=== PATIENT | female | born 1945 | race Caucasian/White ===

== ENCOUNTER → 2016-09-23 | Outpatient (CLI) | payer OTHER ==
[~2016-09-23] MED LIST: ACET-1311 PO; ALUM-51 PO; ARTISOL12 OP; ATV/1 PO; BISA10SU7 PR; CARB0.5D28 OPB; CLC100X PO; CLTP PO; CLX20 PO; CTP/1 PO; DEXT4CHW60 PO; DOCU100C31 PO; FLAX12003 PO; FLUO0.1S2 OP; IBUP-1050 PO; INSDGI SC; INSU100I2 SQ; INSU1INJ7 SC; LACT1TAB4 PO; LISI-461 PO; LISI-729 PO; MELO15TA4 PO; METHPOW PO; METHPOW7 PO; MOMLX PO; MULT60CA PO; NRN800 PO; NVLGI/PEN SC; NYST80OI TOP; OMEP40CA41 PO; OXYC-57 PO; POLY335019 PO; POTA-335 PO; PRLSR20 PO; QUET-205 PO; QUET1TAB30 PO; SENN-56 PO; SULF800T23 PO; TIMO0.5S2 OPL; TRAM-10 PO; TRAZ1TAB8 PO; TROS20TA3 PO
[2016-09-23 09:58] LABS: ESTIMATED AVERAGE GLUCOSE 169 mg/dl; HA1C FLAG Normal (Normal)
== END | disposition home or self-care (01) ==
LOC: C.LABWYN 08:20
PROVIDERS: ATTEND Family Medicine
DX: E11.9 Type 2 diabetes mellitus without complications (principal)

== ENCOUNTER → 2016-10-21 | Day surgery (SDC) | payer OTHER ==
[2016-10-02 07:37] VITALS: Ht 154.9 cm; Wt 87.3 kg
--- NOTE | 2016-10-02 11:04 | PAT Medication Instructions ---
Service Date Oct 02, 2016. Current Home Medication List Acetaminophen (Tylenol), 650 MG PO HS Acetaminophen (Tylenol), 650 MG PO Q6 PRN for Pain or Fever Artificial Tear Solution (Artificial Tears), 1 DROPS OP QID PRN for EYE DRYNESS Bisacodyl (Bisac-Evac), 1 SUPP [place] DAILY PRN for Constipation Carboxymethylcellulose Sodium (Refresh Tears), 1 DROP OPB QID Citalopram (Celexa *), 40 MG PO DAILY Clonidine Hcl (Catapres), 0.1 MG PO BID Dextrose (Diabetic Use) (Glucose), 1 TAB PO DAILY PRN for HYPOGLYCEMIA PROTOCOL Docusate Sodium (Docusate Sodium), 2 CAP PO BID Fluorometholone (Ophth) (Fml Liquifilm), 1 DROPS OP QAM Gabapentin (Gabapentin), 800 MG PO TID Insulin Glargine (Lantus), 44 UNITS SC QAM Insulin Lispro (Human) (Humalog Kwikpen), 1 DOSE SQ UD Lisinopril (Zestril), 10 MG PO QAM Lorazepam (Ativan), 1 MG PO HS Magnesium Hydroxide (Milk of Magnesia), 1 DOSE PO DAILY PRN for Constipation Meloxicam (Meloxicam), 15 MG PO QPM Methylcellulose (Laxative) (Soluble Fiber), 15 ML PO QAM Multiple Vitamins W/ Minerals (Preservision Areds 2), 1 CAP PO BID Nystatin (Topical) (Nystatin), 1 APPLN TOP TID PRN for REDNESS OR IRRITATION Omeprazole (Prilosec), 20 MG PO QAM Oxycodone/Acetaminophen 5MG/325MG (Percocet 5MG/325MG), 1-2 TABLETS PO Q4H PRN for Pain Quetiapine Fumarate (Seroquel), 200 MG PO HS Sennosides (Senna-Lax), 1 TAB PO BID Timolol Gfs 0.5% Oph (Timoptic-Xe 0.5% Oph), 1 DROP OPL DAILY Trazodone Hcl (Desyrel), 100 MG PO HS Trospium Chloride (Trospium Chloride), 1 TAB PO BID Medication Instructions For Your Scheduled Surgery - Check with surgeon for instructions (otherwise okay to take as directed from anesthesia perspective) Meloxicam (Meloxicam), 15 MG PO QPM - Take as directed if needed: Dextrose (Diabetic Use) (Glucose), 1 TAB PO DAILY PRN for HYPOGLYCEMIA PROTOCOL - Hold the following medications 24 hours prior to surgery: Nystatin (Topical) (Nystatin), 1 APPLN TOP TID PRN for REDNESS OR IRRITATION - Hold the following medications the morning of surgery: Bisacodyl (Bisac-Evac), 1 SUPP IL DAILY PRN for Constipation Sennosides (Senna-Lax), 1 TAB PO BID Methylcellulose (Laxative) (Soluble Fiber), 15 ML PO QAM Multiple Vitamins W/ Minerals (Preservision Areds 2), 1 CAP PO BID Magnesium Hydroxide (Milk of Magnesia), 1 DOSE PO DAILY PRN for Constipation Lisinopril (Zestril), 10 MG PO QAM Insulin Lispro (Human) (Humalog Kwikpen), 1 DOSE SQ UD Trospium Chloride (Trospium Chloride), 1 TAB PO BID Docusate Sodium (Docusate Sodium), 2 CAP PO BID - Take the following medications the morning of surgery with a sip of water: Acetaminophen (Tylenol), 650 MG PO Q6 PRN for Pain or Fever (if needed) Artificial Tear Solution (Artificial Tears), 1 DROPS OP QID PRN for EYE DRYNESS (if needed) Carboxymethylcellulose Sodium (Refresh Tears), 1 DROP OPB QID Timolol Gfs 0.5% Oph (Timoptic-Xe 0.5% Oph), 1 DROP OPL DAILY Omeprazole (Prilosec), 20 MG PO QAM Oxycodone/Acetaminophen 5MG/325MG (Percocet 5MG/325MG), 1-2 TABLETS PO Q4H PRN for Pain (okay to take up to 4 hours prior to surgery if needed) Gabapentin (Gabapentin), 800 MG PO TID Fluorometholone (Ophth) (Fml Liquifilm), 1 DROPS OP QAM Citalopram (Celexa *), 40 MG PO DAILY Clonidine Hcl (Catapres), 0.1 MG PO BID - Take the following medications as scheduled the night before surgery: Acetaminophen (Tylenol), 650 MG PO HS Acetaminophen (Tylenol), 650 MG PO Q6 PRN for Pain or Fever (if needed) Artificial Tear Solution (Artificial Tears), 1 DROPS OP QID PRN for EYE DRYNESS (if needed) Bisacodyl (Bisac-Evac), 1 SUPP IL DAILY PRN for Constipation (if needed) Carboxymethylcellulose Sodium (Refresh Tears), 1 DROP OPB QID Trazodone Hcl (Desyrel), 100 MG PO HS Sennosides (Senna-Lax), 1 TAB PO BID Quetiapine Fumarate (Seroquel), 200 MG PO HS Oxycodone/Acetaminophen 5MG/325MG (Percocet 5MG/325MG), 1-2 TABLETS PO Q4H PRN for Pain (if needed) Multiple Vitamins W/ Minerals (Preservision Areds 2), 1 CAP PO BID Lorazepam (Ativan), 1 MG PO HS Insulin Lispro (Human) (Humalog Kwikpen), 1 DOSE SQ UD Gabapentin (Gabapentin), 800 MG PO TID Docusate Sodium (Docusate Sodium), 2 CAP PO BID Clonidine Hcl (Catapres), 0.1 MG PO BID Trospium Chloride (Trospium Chloride), 1 TAB PO BID - For Insulin Dependent Diabetic patients: Test blood sugar A.M. of surgery. - If blood sugar greater than 150, take half of your regular dose of: Insulin Glargine (Lantus)-- therefore take 22 units - If blood sugar less than 150, do not take any: Insulin Glargine (Lantus ) If you have any questions please call us at [phone] or [phone] or [phone]
--- NOTE | 2016-10-06 12:00 | PAT Medication Instructions ---
Service Date Oct 06, 2016. Current Home Medication List Acetaminophen (Tylenol), 650 MG PO HS Acetaminophen (Tylenol), 650 MG PO Q6 PRN for Pain or Fever Artificial Tear Solution (Artificial Tears), 1 DROPS OP QID PRN for EYE DRYNESS Bisacodyl (Bisac-Evac), 1 SUPP AR DAILY PRN for Constipation Carboxymethylcellulose Sodium (Refresh Tears), 1 DROP OPB QID Citalopram (Celexa *), 40 MG PO DAILY Clonidine Hcl (Catapres), 0.1 MG PO BID Dextrose (Diabetic Use) (Glucose), 1 TAB PO DAILY PRN for HYPOGLYCEMIA PROTOCOL Docusate Sodium (Docusate Sodium), 2 CAP PO BID Fluorometholone (Ophth) (Fml Liquifilm), 1 DROPS OP QAM Gabapentin (Gabapentin), 800 MG PO TID Insulin Glargine (Lantus), 44 UNITS SC QAM Insulin Lispro (Human) (Humalog Kwikpen), 1 DOSE SQ UD Lisinopril (Zestril), 10 MG PO QAM Lorazepam (Ativan), 1 MG PO HS Magnesium Hydroxide (Milk of Magnesia), 1 DOSE PO DAILY PRN for Constipation Meloxicam (Meloxicam), 15 MG PO QPM Methylcellulose (Laxative) (Soluble Fiber), 15 ML PO QAM Multiple Vitamins W/ Minerals (Preservision Areds 2), 1 CAP PO BID Nystatin (Topical) (Nystatin), 1 APPLN TOP TID PRN for REDNESS OR IRRITATION Omeprazole (Prilosec), 20 MG PO QAM Oxycodone/Acetaminophen 5MG/325MG (Percocet 5MG/325MG), 1-2 TABLETS PO Q4H PRN for Pain Quetiapine Fumarate (Seroquel), 200 MG PO HS Sennosides (Senna-Lax), 1 TAB PO BID Timolol Gfs 0.5% Oph (Timoptic-Xe 0.5% Oph), 1 DROP OPL DAILY Trazodone Hcl (Desyrel), 100 MG PO HS Trospium Chloride (Trospium Chloride), 1 TAB PO BID Medication Instructions For Your Scheduled Surgery Dextrose (Diabetic Use) (Glucose), 1 TAB PO DAILY PRN for HYPOGLYCEMIA PROTOCOL (continue as directed if needed) - Check with surgeon for instructions: Meloxicam (Meloxicam), 15 MG PO QPM - Hold the following medications 24 hours prior to surgery: Nystatin (Topical) (Nystatin), 1 APPLN TOP TID PRN for REDNESS OR IRRITATION - Hold the following medications the morning of surgery: Sennosides (Senna-Lax), 1 TAB PO BID Multiple Vitamins W/ Minerals (Preservision Areds 2), 1 CAP PO BID Methylcellulose (Laxative) (Soluble Fiber), 15 ML PO QAM Magnesium Hydroxide (Milk of Magnesia), 1 DOSE PO DAILY PRN for Constipation Lisinopril (Zestril), 10 MG PO QAM Insulin Lispro (Human) (Humalog Kwikpen), 1 DOSE SQ UD.Sliding scale Docusate Sodium (Docusate Sodium), 2 CAP PO BID Bisacodyl (Bisac-Evac), 1 SUPP AR DAILY PRN for Constipation Trospium Chloride (Trospium Chloride), 1 TAB PO BID - Take the following medications the morning of surgery with a sip of water: Timolol Gfs 0.5% Oph (Timoptic-Xe 0.5% Oph), 1 DROP OPL DAILY Omeprazole (Prilosec), 20 MG PO QAM Oxycodone/Acetaminophen 5MG/325MG (Percocet 5MG/325MG), 1-2 TABLETS PO Q4H PRN for Pain (okay to take up to 4 hours prior to surgery if needed) Gabapentin (Gabapentin), 800 MG PO TID Clonidine Hcl (Catapres), 0.1 MG PO BID Fluorometholone (Ophth) (Fml Liquifilm), 1 DROPS OP QAM Citalopram (Celexa *), 40 MG PO DAILY Carboxymethylcellulose Sodium (Refresh Tears), 1 DROP OPB QID Artificial Tear Solution (Artificial Tears), 1 DROPS OP QID PRN for EYE DRYNESS Acetaminophen (Tylenol), 650 MG PO HS Acetaminophen (Tylenol), 650 MG PO Q6 PRN for Pain or Fever - Take the following medications as scheduled the night before surgery: Trazodone Hcl (Desyrel), 100 MG PO HS Sennosides (Senna-Lax), 1 TAB PO BID Quetiapine Fumarate (Seroquel), 200 MG PO HS Omeprazole (Prilosec), 20 MG PO QAM Oxycodone/Acetaminophen 5MG/325MG (Percocet 5MG/325MG), 1-2 TABLETS PO Q4H PRN for Pain (if needed) Magnesium Hydroxide (Milk of Magnesia), 1 DOSE PO DAILY PRN for Constipation ( if needed) Lorazepam (Ativan), 1 MG PO HS Insulin Lispro (Human) (Humalog Kwikpen), 1 DOSE SQ UD Sliding scale Gabapentin (Gabapentin), 800 MG PO TID Docusate Sodium (Docusate Sodium), 2 CAP PO BID Clonidine Hcl (Catapres), 0.1 MG PO BID Carboxymethylcellulose Sodium (Refresh Tears), 1 DROP OPB QID Bisacodyl (Bisac-Evac), 1 SUPP AR DAILY PRN for Constipation Artificial Tear Solution (Artificial Tears), 1 DROPS OP QID PRN for EYE DRYNESS Acetaminophen (Tylenol), 650 MG PO HS Acetaminophen (Tylenol), 650 MG PO Q6 PRN for Pain or Fever Trospium Chloride (Trospium Chloride), 1 TAB PO BID - For Insulin Dependent Diabetic patients: Test blood sugar A.M. of surgery. - If blood sugar greater than 150, take half of your regular dose of: Insulin Glargine (Lantus), take 22 units - If blood sugar less than 150, do not take any: Insulin Glargine (Lantus ) If you have any questions please call us at [phone] or [phone] or [phone]
[2016-10-06 12:35] LABS: HEMATOCRIT 33.3 % (37-47); MEAN CELL VOLUME 84.3 fL (80-100); MEAN CORPUSCULAR HEMOGLOBIN 29.1 pg (25-34); MEAN CORPUSCULAR HGB CONC 34.5 g/dl (32-36); MEAN PLATELET VOLUME 9.1 fL (7.4-10.4); PLATELET COUNT 197 K/uL (130-400); RED BLOOD COUNT 3.95 M/uL (4.2-5.4); WHITE BLOOD COUNT 4.48 K/uL (4.8-10.8)
[2016-10-06 13:43] LABS: BUN/CREATININE RATIO 27.5 (10-20); CALCIUM 8.9 mg/dl (8.5-10.1); CREATININE 0.77 mg/dl (0.60-1.20)
[~2016-10-21] VITALS: Ht 154.9 cm; Wt 87.3 kg
[~2016-10-21] MED LIST changes: -ALUM-51 PO; +ATROPINE SULFATE 0.1 MG/ML 5ML SYR IV PRN; +BUPIVACAINE 0.5 % 5 MG/1 ML PF 10ML VIAL ONE; +CEFAZOLIN 2000 MG/60 ML D5W IV SCH; -CLTP PO; -DOCU100C31 PO; +EpHEDrine SULFATE INJ 50 MG/ML AMP IV PRN; +FENTANYL CITRATE INJ 50 MCG/1 ML 2 ML VIAL IV PRN; +FENTANYL CITRATE INJ 50 MCG/1 ML 2 ML VIAL ONE; -FLAX12003 PO; +FLUMAZENIL 0.1 MG/1 ML 10 ML VIAL IV PRN; +HYDROmorphone INJ 2 MG/ML SYR/VIAL IV PRN; -IBUP-1050 PO; -INSDGI SC; +LABETALOL HCL IV 5 MG/ML 20ML IV PRN; -LACT1TAB4 PO; +LACTATED RINGER'S 1000ML 1,000 ML IV SCH; +LIDOCAINE HCL 1% 20 ML VIAL ONE; +LIDOCAINE HCL 2% 2 ML VIAL (20MG/ML) ONE; -LISI-729 PO; -METHPOW7 PO; +MIDAZOLAM HCL 1 MG/ML 2ML VIAL ONE; +NALOXONE HCL 0.4 MG/1 ML VIAL/CARP IV PRN; -NVLGI/PEN SC; -OMEP40CA41 PO; +ONDANSETRON INJ 2 MG/ML 2 ML VIAL IV PRN; +ONDANSETRON INJ 2 MG/ML 2 ML VIAL ONE; +OXYCODONE/ACETAMINOPHEN 5-325 TAB PO PRN; +PHENYLEPHRINE 100MCG/ML 5ML SYR IV PRN; -POLY335019 PO; -POTA-335 PO; +PROPOFOL IV EMULSION 10 MG/ML 20 ML VIAL IV ONE; -QUET1TAB30 PO; +SODIUM CHLORIDE 0.9% 1000ML 1,000 ML IV SCH
--- NOTE | 2016-10-21 07:52 | History & Physical Bridge - SC ---
H&P Re-Evaluation Bridge Note: I have examined the patient, reviewed the History & Physical and in the interval since the performance of the History & Physical I have noted the following changes of clinical significance: No changes noted
--- NOTE | 2016-10-21 08:50 | [facility] Post Operative Brief Note ---
Immediate Operative Summary Operative Date Oct 21, 2016. Pre-Operative Diagnosis Left Ulnar Nerve Compression, Left Ring and Left Little Trigger Fingers Post-Operative Diagnosis same Procedure(s) Performed Left Elbow Ulnar Nerve Decompression, Left Ring And Little Trigger Finger Releases Surgeon Dr. Vaughn Eckert [place] Surgeon(s) Michael Hernandez PA-C Estimated Blood Loss 0 Findings ABOVE Specimens none Drains NONE Anesthesia LMA Complication(s) None Disposition Recovery Room / PACU
--- NOTE | 2016-10-21 08:55 | Discharge Instructions-SurgCtr ---
Discharge Instructions Date of Service Oct 21, 2016. Visit Reason for Visit: Left Ulnar Nerve Compression, Left Trigger Finger Discharge Discharge Diagnosis / Problem: SAME ABOVE Discharge Goals Goal(s): Decrease discomfort, Improve function Activity Recommendations Activity Limitations: as noted below Lifting Limitations: until after follow-up appointment Exercise/Sports Limitations: until after follow-up appointment Shower/Bathe: keep incision dry Anesthesia . Post Anesthesia Instructions: If you have had General Anesthesia or IV Sedation: * Do not drive today. * Resume driving when surgeon permits. * Do not make important decisions or sign legal documents today. * Call surgeon for: 1. Temperature elevations greater than 101 degrees F. 2. Uncontrollable pain. 3. Excessive bleeding. 4. Persistent nausea and vomiting. 5. Medication intolerance (nausea, vomiting or rash). * For nausea and vomiting use only clear liquids such as: tea, soda, bouillon until nausea subsides, then gradually increase diet as tolerated. * If you have any concerns or questions, call your surgeon's office. If physician is unavailable and it is an emergency, call 911 or go to the nearest emergency room. . Instructions / Follow-Up Instructions / Follow-Up MEDICATIONS: * Resume previous medications unless instructed otherwise by your surgeon. * Always take pain medication on a full stomach or with food to avoid upset stomach. * Do not drink alcohol or drive while taking narcotics. * Ibuprofen or Tylenol may be taken if narcotic not needed. SPECIAL CARE INSTRUCTIONS: __ None _X_ Keep extremity elevated and iced x 48 hours; apply ice 20-30 minutes 8-10 times/day. May remove at night. _X_ Sling __24 hrs/day _X_ Remove at night __ Shoulder Immobilizer __ 24 hrs/day __ Remove at night _X_ Dressing _X_ Maintain until seen in office, may shower with plastic over site __ Remove dressings in 24-48 hours and then may shower __ Cover incisions with band-aids after showering __ Do not remove steri-strips Call physician if chills or temperature rises above 102 degrees or pain unrelieved by prescribed pain medications at . . Diet Recommendations Home Diet: resume previous diet Procedures Procedures Performed: Left Elbow Ulnar Nerve Decompression, Left Ring And Little Trigger Finger Releases Pending Studies Studies pending at discharge: no Medical Emergencies . Who to Call and When: Medical Emergencies: If at any time you feel your situation is an emergency, please call 911 immediately. . Non-Emergent Contact Non-Emergency issues call your: Primary Care Provider . . "Provider Documentation" section prepared by Michael Hernandez. .
[2016-10-21] MEDS: MEPERIDINE HCL 25 MG/ML CARP IV PRN ×2 (09:09→09:15)
--- NOTE | 2016-10-21 09:12 | OPERATIVE REPORT ---
DATE OF OPERATION: 10/21/2016 PREOPERATIVE DIAGNOSIS: 1. Ulnar nerve entrapment, left elbow. 2. Left ring and little trigger fingers. POSTOPERATIVE DIAGNOSIS: Same. PROCEDURES: 1. Decompression ulnar nerve, left elbow. 2. Release A1 pulleys left ring and trigger fingers. SURGEON: Dr. Eckert. EMPLOYEE PLACEMENT SPECIALIST: Michael Hernandez PA-C. ANESTHESIOLOGIST: Dr. Petit. ANESTHESIA: LMA. DRAINS: None. COMPLICATIONS: None. CONDITION: The patient tolerated the procedure well and returned to the recovery room in apparent satisfactory condition. INDICATIONS FOR SURGERY: Stefany is a 71-year-old female who has had increasing pain and numbness consistent with ulnar nerve entrapment, left elbow. I went over treatment options and elected to go ahead with the procedure. She also has had triggering of the left ring and trigger fingers, would like to go ahead with release A1 kari also. The procedure, expected outcomes, side effects were all explained in detail. I explained the recovery time with ulnar nerve problems when they are entrapped at the elbow like it regenerates 0.1 mm a day, it could be a long time, months before she can get normal feeling back in her fingers. No guarantees of surgery. OPERATION AND FINDINGS: PROCEDURE: The patient was taken to the OR at which time she was placed supine on the operating table, put to sleep by the anesthesia department. Left arm was prepped and draped in usual sterile fashion for surgery. We went ahead and started with the ulnar nerve. We decompressed her arm and put an axillary tourniquet up to 250 mmHg. We made a curvilinear incision between the medial epicondyle and the olecranon process. Using loupe magnification, we dissected down and exposed the nerve in the cubital tunnel. You could see where it was entrapped right at the bend of the elbow. There was almost an extra piece of muscle over top that I had dissected off and decompressed the nerve. We went proximal and distal, feed it up. We took the arm through a range of motion and there was no subluxation of the nerve. You could see where it had an hourglass appearance where the compression was right at the bend of the elbow. The wound then was copiously irrigated. It was closed in a layered fashion including skin bianca. Marcaine without epinephrine was placed in skin edges. Placed a sterile dressing of Xeroform, 4 x 4's, soft roll. Attention then was given to the hand and it was exposed. We then made incisions over the A1 pulleys of the left ring and little fingers, dissected down and under direct observation the A1 pulleys were divided with an 11 blade and tenotomy scissors. The fingers were taken through range of motion, no longer could see any triggering of the fingers. Both those wounds were irrigated and closed with interrupted 4-0 nylon sutures. Both wounds then were incorporated into our dressing and put her in a bulky dressing with a posterior splint and Kalia bandage and returned back to recovery room in apparent satisfactory condition. I attest to the content of the Intraoperative Record and any orders documented therein. Any exception s are noted below.
[2016-10-21 10:00] VITALS: TEMP 36.3
--- NOTE | 2016-10-21 10:08 | Anesthesia Progress Nt - [facility] ---
Anesthesia Post Op Note Date & Time Oct 21, 2016 at 10:08 Vital Signs Pain Intensity: 3 Vital Signs Past 12 Hours Date Time Temp Pulse Resp B/P (MAP) Pulse Ox O2 Delivery O2 Flow Rate FiO2 10/21/16 09:52 65 5 93 10/21/16 09:52 66 5 10/21/16 09:51 143/69 10/21/16 09:50 36.4 70 12 157/63 96 Room Air 10/21/16 09:47 70 6 98 10/21/16 09:47 70 6 10/21/16 09:45 150/71 10/21/16 09:42 71 6 94 10/21/16 09:42 72 6 10/21/16 09:40 136/69 10/21/16 09:37 67 6 10/21/16 09:37 67 6 99 10/21/16 09:36 148/66 10/21/16 09:32 70 16 10/21/16 09:32 70 16 99 10/21/16 09:31 159/72 10/21/16 09:28 155/78 10/21/16 09:27 74 15 99 10/21/16 09:27 75 15 10/21/16 09:26 164/76 10/21/16 09:22 70 10 99 10/21/16 09:22 69 10 10/21/16 09:20 155/73 10/21/16 09:17 66 10 99 10/21/16 09:17 66 10 10/21/16 09:16 142/87 10/21/16 09:12 68 21 99 10/21/16 09:12 68 21 10/21/16 09:11 146/60 10/21/16 09:07 68 14 99 10/21/16 09:07 68 14 10/21/16 09:06 145/64 10/21/16 09:02 70 18 10/21/16 09:02 71 18 99 10/21/16 09:01 146/74 10/21/16 08:57 69 11 98 10/21/16 08:57 69 11 10/21/16 08:55 148/67 10/21/16 08:52 36.4 71 12 152/74 98 Diffusion Mask 6 10/21/16 08:52 152/74 10/21/16 07:00 36.7 74 16 152/83 (106) 95 Room Air Notes Mental Status: alert / awake / arousable, participated in evaluation Pt Amnestic to Procedure: Yes Nausea / Vomiting: adequately controlled Pain: adequately controlled Airway Patency, RR, SpO2: stable & adequate BP & HR: stable & adequate Hydration State: stable & adequate Anesthetic Complications: no major complications apparent
[2016-10-21 10:45] VITALS: BP 161/77; PULSE 71; O2SAT 96
== END | disposition home or self-care (01) ==
LOC: X.SURG 06:50
PROVIDERS: ATTEND Orthopaedic Surgery
DX: G56.22 Lesion of ulnar nerve, left upper limb (principal); M65.352 Trigger finger, left little finger; M65.342 Trigger finger, left ring finger; E78.5 Hyperlipidemia, unspecified; F32.9 Major depressive disorder, single episode, unspecified; I10 Essential (primary) hypertension

== ENCOUNTER → 2016-11-20 | Outpatient (CLI) | payer OTHER ==
[~2016-11-20] MED LIST changes: -ATROPINE SULFATE 0.1 MG/ML 5ML SYR IV PRN; -BUPIVACAINE 0.5 % 5 MG/1 ML PF 10ML VIAL ONE; -CEFAZOLIN 2000 MG/60 ML D5W IV SCH; -EpHEDrine SULFATE INJ 50 MG/ML AMP IV PRN; -FENTANYL CITRATE INJ 50 MCG/1 ML 2 ML VIAL IV PRN; -FENTANYL CITRATE INJ 50 MCG/1 ML 2 ML VIAL ONE; -FLUMAZENIL 0.1 MG/1 ML 10 ML VIAL IV PRN; -HYDROmorphone INJ 2 MG/ML SYR/VIAL IV PRN; -LABETALOL HCL IV 5 MG/ML 20ML IV PRN; -LACTATED RINGER'S 1000ML 1,000 ML IV SCH; -LIDOCAINE HCL 1% 20 ML VIAL ONE; -LIDOCAINE HCL 2% 2 ML VIAL (20MG/ML) ONE; -MIDAZOLAM HCL 1 MG/ML 2ML VIAL ONE; -NALOXONE HCL 0.4 MG/1 ML VIAL/CARP IV PRN; -ONDANSETRON INJ 2 MG/ML 2 ML VIAL IV PRN; -ONDANSETRON INJ 2 MG/ML 2 ML VIAL ONE; -OXYCODONE/ACETAMINOPHEN 5-325 TAB PO PRN; -PHENYLEPHRINE 100MCG/ML 5ML SYR IV PRN; -PROPOFOL IV EMULSION 10 MG/ML 20 ML VIAL IV ONE; -SODIUM CHLORIDE 0.9% 1000ML 1,000 ML IV SCH
[2016-11-20 08:34] LABS: URINE APPEARANCE TURBID (CLEAR); URINE BILIRUBIN NEG (NEG); URINE COLOR DK YELLOW; URINE EPITHELIAL CELL AUTO >30 /lpf (0-5); URINE NITRITE NEG (NEG); URINE SPECIFIC GRAVITY 1.025 (1.000-1.030); UROBILINOGEN NEG (NEG)
[2016-11-20 08:42] LABS: MANUAL MICROSCOPIC REQUIRED? NO; REVIEW REQ? YES
[2016-11-20 08:52] LABS: URINE MUCUS PRESENT (NONE PRSENT)
== END | disposition home or self-care (01) ==
LOC: C.LABWYN 08:04
PROVIDERS: ATTEND Family Medicine
DX: R50.9 Fever, unspecified (principal)

== ENCOUNTER → 2017-03-12 | Outpatient (CLI) | payer OTHER ==
[~2017-03-12] MED LIST changes: -SULF800T23 PO; -TRAZ1TAB8 PO; +TRAZ1TAB9 PO
[2017-03-12 08:57] LABS: ALT/SGPT 32 U/L (12-78); BLOOD UREA NITROGEN 13 mg/dl (7-18); BUN/CREATININE RATIO 21.3 (10-20); CALCIUM 8.5 mg/dl (8.5-10.1); CARBON DIOXIDE 27 mmol/L (21-32); CHLORIDE 108 mmol/L (98-107); CHOLESTEROL 194 mg/dl (0-200); CREATININE 0.63 mg/dl (0.60-1.20); GLUCOSE 112 mg/dl (70-99); POTASSIUM 3.8 mmol/L (3.5-5.1); SODIUM 141 mmol/L (136-145); TRIGLYCERIDES 343 mg/dl (0-150); VERY LOW DENSITY LIPOPROT CALC 69 mg/dl
[2017-03-12 08:59] LABS: ALB/GLOB RATIO 0.9 (0.9-2); ALKALINE PHOSPHATASE 136 U/L (45-117); AST/SGOT 23 U/L (15-37); CHOLESTEROL/HDL RATIO 5.9; HDL CHOLESTEROL 33 mg/dl; LDL CHOLESTEROL CALCULATED 92 mg/dl
[2017-03-12 09:20] LABS: MANUAL MICROSCOPIC REQUIRED? NO; REVIEW REQ? NO; URINE APPEARANCE CLEAR (CLEAR); URINE BILIRUBIN NEG (NEG); URINE COLOR YELLOW; URINE NITRITE NEG (NEG); URINE SPECIFIC GRAVITY 1.012 (1.000-1.030); UROBILINOGEN NEG (NEG)
[2017-03-12 09:51] LABS: ESTIMATED AVERAGE GLUCOSE 183 mg/dl; HA1C FLAG Normal (Normal)
[2017-03-12 09:52] LABS: CREATININE RANDOM URINE 44.1 mg/dl
[2017-03-12 10:03] LABS: RATIO 510.2 mcg/mg (0-30.0)
== END | disposition home or self-care (01) ==
LOC: C.LABWYN 08:31
PROVIDERS: ATTEND Family Medicine
DX: E11.9 Type 2 diabetes mellitus without complications (principal); Z11.59 Encounter for screening for other viral diseases

== ENCOUNTER → 2017-03-31 | Outpatient (CLI) | payer OTHER ==
[~2017-03-31] MED LIST changes: +TRAZ-122 PO; -TRAZ1TAB9 PO
== END | disposition home or self-care (01) ==
LOC: C.LABWYN 08:07
PROVIDERS: ATTEND Internal Medicine
DX: E11.9 Type 2 diabetes mellitus without complications (principal); F32.9 Major depressive disorder, single episode, unspecified

== ENCOUNTER → 2017-07-07 | Outpatient (CLI) | payer OTHER ==
[~2017-07-07] MED LIST changes: +MELO-83 PO; -MELO15TA4 PO
[2017-07-07 09:04] LABS: HEMATOCRIT 33.5 % (37-47); HEMOGLOBIN 11.7 g/dL (12.0-16.0); MEAN CELL VOLUME 84.6 fL (80-100); MEAN CORPUSCULAR HEMOGLOBIN 29.5 pg (25-34); MEAN CORPUSCULAR HGB CONC 34.9 g/dl (32-36); MEAN PLATELET VOLUME 9.6 fL (7.4-10.4); PLATELET COUNT 200 K/uL (130-400); RED CELL DISTRIBUTION WIDTH CV 13.1 % (11.5-14.5); WHITE BLOOD COUNT 5.45 K/uL (4.8-10.8)
[2017-07-07 09:34] LABS: BLOOD UREA NITROGEN 13 mg/dl (7-18); CALCIUM 8.6 mg/dl (8.5-10.1); CARBON DIOXIDE 28 mmol/L (21-32); CREATININE 0.67 mg/dl (0.60-1.20); GLUCOSE 133 mg/dl (70-99); POTASSIUM 3.7 mmol/L (3.5-5.1); SODIUM 135 mmol/L (136-145)
== END | disposition home or self-care (01) ==
LOC: C.LABWYN 08:46
PROVIDERS: ATTEND Internal Medicine
DX: I10 Essential (primary) hypertension (principal); E11.9 Type 2 diabetes mellitus without complications

== ENCOUNTER 2020-10-19 10:39 | Inpatient (IN) ==
--- NOTE | 2020-10-12 09:24 | PAT Medication Instructions ---
Medication Instructions Date of Service October 12, 2020 Home Medications Medication Instructions Recorded hydrocortisone 2.5 % topical cream See Rx Instructions .ROUTE 06/12/18 .COMPLEX #28 gm conjugated estrogens 0.625 mg/gram 0.625 mg PV DAILY #30 gm 03/17/19 vaginal cream (Premarin) methenamine hippurate 1 gram tablet 1 gm PO Q12H #60 tab 03/17/19 aspirin 81 mg tablet,delayed release 81 mg PO QAM clonidine HCl 0.1 mg tablet 0.1 mg PO BID fluorometholone 0.1 % eye drops,suspension 1 drp OPB QAM glucose 4 gram chewable tablet 1 tab PO UD ibuprofen 800 mg tablet 800 mg PO TID PRN insulin glargine 100 unit/mL (3 mL) subcutaneous pen (Lantus Solostar U-100 Insulin) 50 unit SUBCUT QAM lorazepam 1 mg tablet 1 mg PO HS meloxicam 15 mg tablet 15 mg PO HS nystatin 100,000 unit/gram topical powder (Nystop) 1 applic TOPICAL TID PRN omeprazole 20 mg capsule,delayed release 20 mg PO QAM polyethylene glycol 3350 17 gram oral powder packet 17 g PO QAM quetiapine 50 mg tablet 50 mg PO HS timolol 0.5 % eye drops 1 drp OPB QAM tolterodine 2 mg tablet 2 mg PO BID vit C 250 mg-vit E 90 mg-zinc 40 mg-copper 1 et-egbbrh-hmzeic capsule (PreserVision AREDS-2) 1 tab PO BID acetaminophen 325 mg tablet (Tylenol) 650 mg PO Q6H PRN MDD MAX 3 GRAMS APAP/24 HOURS. citalopram 20 mg tablet (Celexa) 20 mg PO QAM hydrocortisone 2.5 % topical cream See Rx Instructions .ROUTE .COMPLEX conjugated estrogens 0.625 mg/gram vaginal cream (Premarin) 0.625 mg PV DAILY methenamine hippurate 1 gram tablet 1 gm PO Q12H amoxicillin 500 mg capsule 2,000 mg PO UD diclofenac sodium 1 % topical gel 2 g TOPICAL QID PRN gabapentin 400 mg capsule 400 mg PO TID insulin lispro 100 unit/mL subcutaneous pen (Humalog KwikPen (U-100) Insulin) 0 - 12 unit SUBCUT UD lisinopril 2.5 mg tablet 2.5 mg PO BID psyllium husk 3.4 gram/5.4 gram oral powder (Metamucil) 1 tbsp PO DAILY Continue as directed amoxicillin 500 mg capsule 2,000 mg PO UD (prior to dental procedures) ASK your surgeon for instructions ibuprofen 800 mg tablet 800 mg PO TID PRN meloxicam 15 mg tablet 15 mg PO HS If still awaiting instructions, contact Dr. Agosto's office ( ) ASK your prescriber and surgeon aspirin 81 mg tablet,delayed release 81 mg PO QAM If still awaiting instructions, contact Dr. Agosto's office ( ) STOP taking 2 weeks before surgery vit C 250 mg-vit E 90 mg-zinc 40 mg-copper 1 es-uzqpqs-uoscbh capsule (PreserVision AREDS-2) 1 tab PO BID STOP taking 24 hours before surgery nystatin 100,000 unit/gram topical powder (Nystop) 1 applic TOPICAL TID PRN hydrocortisone 2.5 % topical cream See Rx Instructions .ROUTE .COMPLEX conjugated estrogens 0.625 mg/gram vaginal cream (Premarin) 0.625 mg PV DAILY diclofenac sodium 1 % topical gel 2 g TOPICAL QID PRN DO NOT take the morning of surgery polyethylene glycol 3350 17 gram oral powder packet 17 g PO QAM tolterodine 2 mg tablet 2 mg PO BID insulin lispro 100 unit/mL subcutaneous pen (Humalog KwikPen (U-100) Insulin) 0 - 12 unit SUBCUT UD lisinopril 2.5 mg tablet 2.5 mg PO BID psyllium husk 3.4 gram/5.4 gram oral powder (Metamucil) 1 tbsp PO DAILY Take morning of surgery With a small sip of water, OTHERWISE NOTHING TO EAT OR DRINK AFTER MIDNIGHT: clonidine HCl 0.1 mg tablet 0.1 mg PO BID fluorometholone 0.1 % eye drops,suspension 1 drp OPB QAM omeprazole 20 mg capsule,delayed release 20 mg PO QAM timolol 0.5 % eye drops 1 drp OPB QAM acetaminophen 325 mg tablet (Tylenol) 650 mg PO Q6H PRN MDD MAX 3 GRAMS APAP/24 HOURS (okay to take up to 4 hours prior to surgery if needed) citalopram 20 mg tablet (Celexa) 20 mg PO QAM methenamine hippurate 1 gram tablet 1 gm PO Q12H gabapentin 400 mg capsule 400 mg PO TID Take evening before surgery clonidine HCl 0.1 mg tablet 0.1 mg PO BID glucose 4 gram chewable tablet 1 tab PO UD (if needed) lorazepam 1 mg tablet 1 mg PO HS quetiapine 50 mg tablet 50 mg PO HS tolterodine 2 mg tablet 2 mg PO BID acetaminophen 325 mg tablet (Tylenol) 650 mg PO Q6H PRN MDD MAX 3 GRAMS APAP/24 HOURS (if needed) methenamine hippurate 1 gram tablet 1 gm PO Q12H gabapentin 400 mg capsule 400 mg PO TID insulin lispro 100 unit/mL subcutaneous pen (Humalog KwikPen (U-100) Insulin) 0 - 12 unit SUBCUT UD lisinopril 2.5 mg tablet 2.5 mg PO BID Insulin Dependent Diabetic Patients * Test your blood sugar the morning of surgery * If Blood Sugar is GREATER THAN 150, take HALF of your regular dose of: insulin glargine 100 unit/mL (3 mL) subcutaneous pen (Lantus Solostar U-100 Insulin) take 25 units * If Blood Sugar is LESS THAN 150, DO NOT TAKE ANY: insulin glargine 100 unit/mL (3 mL) subcutaneous pen (Lantus Solostar U-100 Insulin) Other Notes If you have any questions please call us at [phone] or [phone] or [phone] or [phone]
--- NOTE | 2020-10-16 09:42 | Anesthesiology Consultation ---
Date of Service October 16, 2020 Assessment & Plan (1) Encounter for pre-operative examination: Chart Review Chart Review: Acceptable Risk for Surgery and Patient NOT seen in Pre Admission Testing Per nursing assessment 10/11/2020, patient resides at [facility]- does not wear mask while inside [facility] but does wear mask in public. No known Covid infection in the past 90 days. No known Covid positive contacts or Covid related symptoms. Pt is vaccinated for Covid. Covid test 10/15/20= negative. Due to patient living in dependent facility and Covid test being done 10/15/20- will order Cepheid test for DOS. History Surgery Operation Date: 10/19/20 12:35 Proposed Procedures p Bilateral L2-L3, Left L5-S1 Lumbar Laminectomy, Medial Facetectomies, Foraminotomies - Noel gAosto MD Height/Weight Height: 5 ft 1 in Weight: 89.811 kg Allergies Allergy/AdvReac Type Severity Reaction Status Date / Time latex Allergy Unknown ON [facility] Verified 10/11/20 16:10 LIST niacin Allergy Unknown ON Verified 10/11/20 16:10 [facility] LIST simvastatin Allergy Unknown ON Verified 10/11/20 16:10 [facility] LIST Medications Home Medications Medication Instructions Recorded Confirmed Last Taken aspirin 81 mg tablet,delayed 81 mg PO [facility] 11/26/17 10/12/20 06/11/18 release clonidine HCl 0.1 mg tablet 0.1 mg PO BID 11/26/17 10/12/20 06/11/18 fluorometholone 0.1 % eye 1 drp OPB [facility] 11/26/17 10/12/20 06/11/18 drops,suspension glucose 4 gram chewable tablet 1 tab PO UD 11/26/17 10/12/20 Unknown ibuprofen 800 mg tablet 800 mg PO TID PRN 11/26/17 10/12/20 Unknown insulin glargine 100 unit/mL (3 50 unit SUBCUT [facility] 11/26/17 10/12/20 06/11/18 mL) subcutaneous pen (Lantus Solostar U-100 Insulin) lorazepam 1 mg tablet 1 mg PO HS 11/26/17 10/12/20 06/11/18 meloxicam 15 mg tablet 15 mg PO 11/26/17 10/12/20 06/11/18 nystatin 100,000 unit/gram topical 1 applic TOPICAL TID PRN 11/26/17 10/12/20 Unknown powder (Nystop) omeprazole 20 mg capsule,delayed 20 mg PO QAM 11/26/17 10/12/20 06/11/18 release polyethylene glycol 3350 17 gram 17 g PO QAM 11/26/17 10/12/20 06/11/18 oral powder packet quetiapine 50 mg tablet 50 mg PO HS 11/26/17 10/12/20 06/11/18 timolol 0.5 % eye drops 1 drp OPB QAM 11/26/17 10/12/20 06/11/18 tolterodine 2 mg tablet 2 mg PO BID 11/26/17 10/12/20 06/11/18 vit C 250 mg-vit E 90 mg-zinc 40 1 tab PO BID 11/26/17 10/12/20 06/11/18 mg-copper 1 [id number] capsule (PreserVision AREDS-2) acetaminophen 325 mg tablet 650 mg PO Q6H PRN MDD MAX 3 GRAMS 06/12/18 10/12/20 Unknown (Tylenol) APAP/24 HOURS. citalopram 20 mg tablet (Celexa) 20 mg PO QAM 06/12/18 10/12/20 06/11/18 hydrocortisone 2.5 % topical cream See Rx Instructions .ROUTE 06/12/18 10/12/20 Unknown .COMPLEX #28 gm conjugated estrogens 0.625 mg/gram 0.625 mg PV DAILY #30 gm 03/17/19 10/12/20 Unknown vaginal cream (Premarin) methenamine hippurate 1 gram tablet 1 gm PO Q12H #60 tab 03/17/19 10/12/20 Unknown amoxicillin 500 mg capsule 2,000 mg PO UD 10/12/20 10/12/20 Unknown diclofenac sodium 1 % topical gel 2 g TOPICAL QID PRN 10/12/20 10/12/20 Unknown gabapentin 400 mg capsule 400 mg PO TID 10/12/20 10/12/20 Unknown insulin lispro 100 unit/mL 0 - 12 unit SUBCUT UD 10/12/20 10/12/20 Unknown subcutaneous pen (Humalog KwikPen (U-100) Insulin) lisinopril 2.5 mg tablet 2.5 mg PO BID 10/12/20 10/12/20 Unknown psyllium husk 3.4 gram/5.4 gram 1 tbsp PO DAILY 10/12/20 10/12/20 Unknown oral powder (Metamucil) Past Medical History Medical History (Updated 10/16/20 @ 09:41 by Kandice Fletcher PA-C) Chronic back pain Depression Per records Diabetes mellitus, type 2 IDDM GERD (gastroesophageal reflux disease) hx History of macular degeneration Hypertension Per records Insomnia Per records Neuropathy Per records Sleep apnea cpap nightly with 3lpm of oygen Spinal stenosis of lumbar region Past Family History Family History Other No family history of adverse response to anesthesia No pertinent family history Past Surgical History Surgical History History of appendectomy History of bilateral tubal ligation History of cataract surgery bilateral History of cholecystectomy History of colonoscopy History of cornea transplant bilateral Hx of total knee arthroplasty bilateral S/P epidural steroid injection Social History Smoking Status: Former smoker Do You Dip or Chew Tobacco: No Hx Alcohol Use: No Hx Substance Use: No substance use type: does not use Lab Results Anesthesia Preop Results Results Anesthesia Widget: WBC 6.63 K/uL (4.8-10.8) 10/15/20 Hgb 12.2 g/dL (12.0-16.0) 10/15/20 Hct 36.4 % (37-47) L 10/15/20 Plt 206 K/uL (130-400) 10/15/20 Na 140 mmol/L (136-145) 10/15/20 K 3.9 mmol/L (3.5-5.1) 10/15/20 Cl 109 mmol/L (98-107) H 10/15/20 CO2 27 mmol/L (21-32) 10/15/20 BUN 16 mg/dl (7-18) 10/15/20 Creat 0.93 mg/dl (0.6-1.2) 10/15/20 Glucose Level 92 mg/dl (70-99) 10/15/20 HA1c 6.4 % (4.5-5.6) H 08/28/20 Blood Type A Positive 10/15/20 Antibody Screen NEGATIVE 10/15/20 Testing Electrocardiogram Date: 10/15/20 Findings: + NSR @ (74bpm) and + no change from (October 06, 2016 per cardio ) Right bundle branch block
[~2020-10-19 10:39] MED LIST changes: -ACET-1311 PO; -ARTISOL12 OP; -ATV/1 PO; -BISA10SU7 PR; -CARB0.5D28 OPB; -CLC100X PO; -CLX20 PO; -CTP/1 PO; -DEXT4CHW60 PO; -FLUO0.1S2 OP; -INSU100I2 SQ; -INSU1INJ7 SC; -LISI-461 PO; +LR 15ML/HR IV SCH; +LR 60ML/HR IV SCH; -MELO-83 PO; -METHPOW PO; -MOMLX PO; -MULT60CA PO; -NRN800 PO; -NYST80OI TOP; -OXYC-57 PO; -PRLSR20 PO; -QUET-205 PO; -SENN-56 PO; -TIMO0.5S2 OPL; -TRAM-10 PO; +TRANEXAMIC ACID 1,000 MG **IV Intra-op IV SCH; +TRANEXAMIC ACID 1,000 MG **IV Pre-op IV SCH; -TRAZ-122 PO; -TROS20TA3 PO; +ceFAZolin 2000MG 2,000 MG/15 ML SYR IV SCH
[2020-10-19] MEDS ORDERED: DEXAMETHASONE SOD INJ 4 MG/ML VIAL ONE (11:58)
[2020-10-19] MEDS ORDERED: MIDAZOLAM HCL 1 MG/ML 2ML VIAL ONE (11:58)
[2020-10-19] MEDS ORDERED: ONDANSETRON INJ 2 MG/ML 2 ML VIAL ONE (11:58)
[2020-10-19] MEDS ORDERED: LIDOCAINE 2% 2 ML VIAL/AMP(20MG/ML) INFIL ONE (11:58)
[2020-10-19] MEDS ORDERED: PROPOFOL IV EMULSION 10 MG/ML 20 ML VIAL IV ONE (11:58)
[2020-10-19] MEDS ORDERED: ROCURONIUM BROMIDE 10 MG/ML 5 ML VIAL IV ONE ×3 (11:58→16:07)
[2020-10-19] MEDS ORDERED: HYDROmorphone INJ 2 MG/ML SYR/VIAL ONE (11:59)
[2020-10-19] MEDS ORDERED: ePHEDrine sulfate 50 MG/ML AMP IV PRN (12:54)
[2020-10-19] MEDS ORDERED: ATROPINE SULFATE 0.1 MG/ML 10ML SYR IV PRN (12:54)
[2020-10-19] MEDS ORDERED: ONDANSETRON INJ 2 MG/ML 2 ML VIAL IV PRN ×2 (12:54→19:53)
[2020-10-19] MEDS ORDERED: HYDROmorphone INJ 2 MG/ML SYR/VIAL IV PRN (12:54)
--- NOTE | 2020-10-19 13:28 | History & Physical Bridge Note ---
Date of Service October 19, 2020 History & Physical Bridge Note I have examined the patient, reviewed the History & Physical and in the interval since the performance of the History & Physical I have noted the following changes of clinical significance: no changes noted New changes compared to last appointment: nil Musculoskeletal: 5/5 motor strength bilateral L2-S1 except left L5 4/5. Neurologic: Sensation 2/2 to light touch bilateral L2-S1. Patient marked for surgery. All new questions about procedure answered. Informed consent confirmed
[2020-10-19] MEDS ORDERED: VANCOMYCIN HCL 1000MG/20ML VIAL ONE ×2 (13:32→15:57)
[2020-10-19] MEDS ORDERED: THROMBIN FOR SOLN 20000 UNIT KIT ONE (13:32)
[2020-10-19] MEDS ORDERED: GELATIN SPONGE SZ 100 ONE (13:32)
[2020-10-19] MEDS ORDERED: SUGAMMADEX SODIUM 200 MG/2 ML VIAL IV ONE (14:44)
[2020-10-19] MEDS ORDERED: ACETAMINOPHEN 1000 MG/100 ML IV IV ONE (14:44)
[2020-10-19] MEDS ORDERED: LABETALOL HCL IV 5 MG/ML 20ML IV ONE ×2 (16:07→18:14)
[2020-10-19] MEDS ORDERED: FLOSEAL HEMOSTATIC MATRIX 5ML TOP ONE (17:08)
--- NOTE | 2020-10-19 17:37 | Post Operative Brief Note ---
PG Immediate Post Op with CF Date of Surgery October 19, 2020 Pre & Post Diagnosis Operation Date: 10/19/20 Pre-Op Diagnosis: Neurogenic Claudication with L2-3 central stenosis, left leg radiculopathy with L5-S1 foraminal stenosis Post-Op Diagnosis: Neurogenic Claudication with L2-3 central stenosis, left leg radiculopathy with L5-S1 foraminal stenosis I identified the patient and participated in the time-out.: Yes Procedure Bilateral L2-L3, Left L5-S1 Lumbar Laminectomy, Medial Facetectomies, Foraminotomies Surgeon Noel Agosto MD Director Of Residential Services Gene Fung PA-C Estimated Blood Loss 150 Findings Consistent with Post-Op Diagnosis Specimens Specimen Description: no specimen per MD Drains Hendrickson Catheter (16fr 10ml balloon)
[2020-10-19] MEDS: fentaNYL citrate 100 MCG/2 ML VIAL IV PRN ×4 (17:53→18:55)
--- NOTE | 2020-10-19 17:54 | Communication Note ---
Date of Service: October 19, 2020 Post-op routine neurological assessment completed Patient awake, alert, appears confused No new neurological deficits noted Musculoskeletal: grossly intact motor strength bilateral L2-S1 Neurologic: Sensation 2/2 to light touch bilateral L2-S1 Exam limited by post-op confusion hospitalist service involved
[2020-10-19] MEDS ORDERED: DEXTROSE 50% 50 ML SYRINGE IV ONE ×2 (17:57→17:58)
[2020-10-19] MEDS: LABETALOL HCL IV 5 MG/ML 20ML IV PRN ×3 (18:15→18:37)
[2020-10-19] MEDS ORDERED: hydrALAZINE HCL 20 MG/ML VIAL ONE (19:01)
[2020-10-19] MEDS ORDERED: hydrALAZINE HCL 20 MG/ML VIAL IV ONE (19:01)
[2020-10-19] MEDS ORDERED: fentaNYL citrate 100 MCG/2 ML VIAL IV PRN (19:20)
[2020-10-19] MEDS ORDERED: ALUMINUM/MAGNESIUM SUSP 30 ML UDC PO PRN (19:53)
[2020-10-19] MEDS ORDERED: PROMETHAZINE HCL 12.5 MG in SODIUM CHLORIDE 0.9% 50 ML IV PRN (19:53)
[2020-10-19] MEDS ORDERED: HYDROmorphone INJ 0.5 MG/0.5 ML SYR IV PRN (19:53)
[2020-10-19] MEDS ORDERED: PHARMACY GLYCEMIC MGMT CONSULT PRN (19:53)
[2020-10-19] MEDS ORDERED: NALOXONE HCL 0.4 MG/1 ML VIAL/CARP IV PRN (19:53)
[2020-10-19] MEDS ORDERED: DO NOT ADMINISTER PNEUMOCOCCAL VACCINE PRN (19:53)
[2020-10-19] MEDS ORDERED: hydrOXYzine HCl 25 MG TAB PO PRN (19:53)
[2020-10-19] MEDS ORDERED: MAGNESIUM HYDROXIDE SUSP 30 ML UDC PO PRN (19:53)
[2020-10-19] MEDS ORDERED: bisacodyL 10 MG SUPP PR PRN (19:53)
[2020-10-19] MEDS ORDERED: METOCLOPRAMIDE HCL INJ 5 MG/ML 2 ML VIAL IV PRN (19:53)
[2020-10-19] MEDS ORDERED: GLUCOSE 10 TABS/TUBE PO SCH (19:53)
[2020-10-19] MEDS ORDERED: DO NOT ADMINISTER FLU VACCINE PRN (19:53)
[2020-10-19] MEDS ORDERED: LORazepam 0.5 MG/1 ML VIAL IV PRN (19:53)
[2020-10-19] MEDS ORDERED: NON-FORMULARY MEDICATION (Insulin Lispro [Humalog Kwikpen Insulin] 100 unit/mL insulin pen SQ SCH (19:53)
[2020-10-19] MEDS ORDERED: ACETAMINOPHEN 500 MG TAB PO PRN (19:53)
[2020-10-19] MEDS ORDERED: SOD PHOSPHATE/SOD BIPHOSPHATE ENEMA 132 ML BTL PR PRN (19:53)
[2020-10-19] MEDS ORDERED: FAMOTIDINE 20 MG TAB PO PRN (19:53)
[2020-10-19] MEDS ORDERED: ONDANSETRON 4 MG OD TAB PO PRN (19:53)
[2020-10-19] MEDS ORDERED: diphenhydrAMINE Capsule 25 MG CAP PO PRN (19:53)
[2020-10-19] MEDS ORDERED: LORazepam 0.5 MG TAB PO PRN (19:53)
[2020-10-19] MEDS ORDERED: ACETAMINOPHEN 1,000 MG/100 ML VIAL IV PRN (19:53)
--- NOTE | 2020-10-19 19:56 | Anesthesiology Progress Note ---
Date of Service October 19, 2020 Anesthesia Post Procedure Vital Signs Vital Signs: Temp Pulse Pulse Resp BP Pulse Ox 10/19/20 19:35 79 14 159/57 H 99 10/19/20 19:20 81 13 168/75 H 99 10/19/20 19:10 80 12 173/75 H 96 10/19/20 19:00 36.9 C 79 12 165/85 H 96 10/19/20 18:50 78 12 183/77 H 94 10/19/20 18:40 77 13 196/73 H 98 10/19/20 18:30 76 12 194/74 H 100 10/19/20 18:20 74 12 188/75 H 100 10/19/20 18:10 79 14 193/93 H 100 10/19/20 18:00 81 12 187/96 H 100 10/19/20 17:50 83 14 239/121 H 100 10/19/20 17:43 36.4 C L 84 12 170/91 H 92 10/19/20 11:45 37 C 72 20 183/90 H 95 Pain Intensity Lower Back: Pain Intensity: 4 Transfer of Care Handoff Completed per policy Notes Mental Status: alert / awake / arousable and participated in evaluation Patient Amnestic to Procedure: Yes Nausea / Vomiting: adequately controlled Pain: adequately controlled Airway Patency, RR, SpO2: stable & adequate BP & HR: stable & adequate Hydration State: stable & adequate Anesthetic Complications: no major complications apparent and Pt Satisfied with anesthetic care Notes: Patient had blood sugar in recovery of 60 and was not yet able to tolerate PO so I decided to give her 1/2 am D50 with good results. She was treated aggressively for pain and with antihypertensives.
[2020-10-19] MEDS ORDERED: HYDROmorphone INJ 1 MG/ML SYRINGE ONE (20:21)
[2020-10-19] MEDS: ceFAZolin 2000MG 2,000 MG/15 ML SYR IV SCH (20:57)
[2020-10-19] MEDS: lisinopril 2.5 MG TAB PO SCH (20:58)
[2020-10-19] MEDS: GABAPENTIN 400 MG CAP PO SCH (20:58)
[2020-10-19] MEDS: cloNIDine HCL 0.1 MG TAB PO SCH (20:58)
[2020-10-19] MEDS: QUEtiapine FUMARATE 25 MG TABLET PO SCH (20:58)
[2020-10-19] MEDS: DOCUSATE SODIUM/SENNA 50/8.6MG TAB PO SCH (20:59)
[2020-10-19] MEDS ORDERED: ATIVAN 1MG HOMEPACK PO SCH (21:00)
--- NOTE | 2020-10-19 21:01 | XRay Report ---
SINGLE VIEW LUMBAR SPINE CLINICAL HISTORY: Intraoperative radiographs. Lumbar laminectomy. FINDINGS: 10 sequential lateral views of the lumbar spine are correlated with study dated 07/30/2020. The skeletal structures are osteopenic. Vertebral body height and alignment are maintained throughout the lumbar spine. Anterior osteophytes are seen throughout. Moderate to advanced multilevel disc spa ce narrowing is noted. On the first several images of the surgical probes project posteriorly at the levels of L1 and L5. On the following images the superior probe projects more inferiorly at the level of L2. On image 6, a single probe projects at the level of L3. On the final 2 images a single probe projects at the level of L5-S1. There is advanced atherosclerotic calcification of the abdominal aort a. IMPRESSION: Intraoperative radiographs of the lumbar spine as above. See operative report for detaile d findings. Electronically signed by: Jose Fox M.D. 10/19/2020 9:00 PM
[2020-10-19] MEDS: LACTATED RINGER'S 1,000 ML IV SCH (21:05)
[2020-10-19] MEDS: INSULIN ASPART 100 UNITS/ML 3 ML PEN SC SCH (21:06)
--- NOTE | 2020-10-19 21:10 | Hospitalist Consultation ---
Date of Consultation October 19, 2020 Assessment & Plan (1) Postoperative confusion: (2) Diabetes: 75 yo F Hx DM2, neurogenic claudication admitted for post-op care after bilateral L2-3 and left L5-S1 lumbar laminectomy, medial facetectomy, and foraminotomy. Hospitalist service consulted for post-op confusion. Post-op confusion: Noted by primary team to have confusion post-op in recovery area. AAOx4 on my interview, confusion appears to be secondary to sedation which has resolved since arriving on floor. No indication for head imaging at this time. Can consider if confusion returns. Continue home Celexa, Seroquel, lorazepam. DM2: Not insulin-naive. Did have episode of hypoglycemia earlier this evening. Held one time 2am dose of insulin. Continue Lantus 30u daily, with SSI. Glycemic consult ordered by primary team. Neurogenic claudication, now post-op: Care per Orth[facility] Spine. PT/OT, with possible discharge home tomorrow. Supervising Physician Co-Signing Physician Notes Attending addendum: I have physically seen this patient, have supervised the medical residents activities, and agree with the H&P unless as otherwise noted. Assessment and Plan: Postoperative confusion- Noted in recovery, but cleared by the time of our assessment. Likely secondary to medications Continue her usual Celexa, Seroquel and lorazepam Diabetes mellitus- Glycemic consult ordered by primary team Remaining orders and notations as noted History of Present Illness Reason for Consultation: post-op confuseion Requesting Physician: Noel Agosto MD Attending Physician: Noel Agosto MD History of Present Illness 75 yo F Hx DM2, neurogenic claudication due to lumbar spinal stenosis presented to hospital for worsening back pain. Had bilateral L2-3 and left L5-S1 lumbar laminectomy, medial facetectomy, foraminotomy this afternoon, and immediately following operation after sedation was terminated patient was noted to be acutely confused. PACU did discuss this with son over the phone, who said that this is not atypical for her. Consult to hospital service was placed for evaluation of acute confusion. On my interview patient is alert and well oriented, knows she is in the hospital post-op from back surgery, knows her name and , and can answer complex questions. Only complaints from patient are of mild low back pain, as well as some hoarseness post-op. Denies chest pain, SOB, abdominal pain, fevers or chills. Allergies Allergy/AdvReac Type Severity Reaction Status Date / Time latex Allergy Mild ON [facility] Verified 10/19/20 11:38 LIST-per patient- thinks rash niacin Allergy Mild ON Verified 10/19/20 11:38 [facility] LIST- per patient "probably rash" simvastatin Allergy Unknown ON Verified 10/19/20 11:38 [facility] LIST- unsure Home Medications Medication Instructions Recorded Confirmed Type aspirin 81 mg tablet,delayed 81 mg PO QA 11/26/17 10/19/20 History release clonidine HCl 0.1 mg tablet 0.1 mg PO BID 11/26/17 10/19/20 History fluorometholone 0.1 % eye 1 drp OPB [facility] 11/26/17 10/19/20 History drops,suspension glucose 4 gram chewable tablet 1 tab PO UD 11/26/17 10/19/20 History ibuprofen 800 mg tablet 800 mg PO TID PRN 11/26/17 10/19/20 History insulin glargine 100 unit/mL (3 50 unit SUBCUT [facility] 11/26/17 10/19/20 History mL) subcutaneous pen (Lantus Solostar U-100 Insulin) lorazepam 1 mg tablet 1 mg PO 11/26/17 10/19/20 History meloxicam 15 mg tablet 15 mg PO 11/26/17 10/19/20 History nystatin 100,000 unit/gram topical 1 applic TOPICAL TID PRN 11/26/17 10/19/20 History powder (Nystop) omeprazole 20 mg capsule,delayed 20 mg PO [facility] 11/26/17 10/19/20 History release polyethylene glycol 3350 17 gram 17 g PO [facility] 11/26/17 10/19/20 History oral powder packet quetiapine 50 mg tablet 50 mg PO 11/26/17 10/19/20 History timolol 0.5 % eye drops 1 drp OPB [facility]A 11/26/17 10/19/20 History tolterodine 2 mg tablet 2 mg PO BID 11/26/17 10/19/20 History vit C 250 mg-vit E 90 mg-zinc 40 1 tab PO BID 11/26/17 10/19/20 History mg-copper 1 [id number] capsule (PreserVision AREDS-2) acetaminophen 325 mg tablet 650 mg PO Q6H PRN MDD MAX 3 GRAMS 06/12/18 10/19/20 History (Tylenol) APAP/24 HOURS. citalopram 20 mg tablet (Celexa) 20 mg PO QAM 06/12/18 10/19/20 History hydrocortisone 2.5 % topical cream See Rx Instructions .ROUTE 06/12/18 10/19/20 Rx .COMPLEX #28 gm conjugated estrogens 0.625 mg/gram 0.625 mg PV DAILY #30 gm 03/17/19 10/19/20 Rx vaginal cream (Premarin) methenamine hippurate 1 gram tablet 1 gm PO Q12H #60 tab 03/17/19 10/19/20 Rx amoxicillin 500 mg capsule 2,000 mg PO UD 10/12/20 10/19/20 History diclofenac sodium 1 % topical gel 2 g TOPICAL QID PRN 10/12/20 10/19/20 History gabapentin 400 mg capsule 400 mg PO TID 10/12/20 10/19/20 History insulin lispro 100 unit/mL 0 - 12 unit SUBCUT UD 10/12/20 10/19/20 History subcutaneous pen (Humalog KwikPen (U-100) Insulin) lisinopril 2.5 mg tablet 2.5 mg PO BID 10/12/20 10/19/20 History psyllium husk 3.4 gram/5.4 gram 1 tbsp PO DAILY 10/12/20 10/19/20 History oral powder (Metamucil) Patient History Medical History (Updated 10/19/20 @ 21:22 by Raven Renee DO) Chronic back pain Depression Per records Diabetes mellitus, type 2 IDDM GERD (gastroesophageal reflux disease) hx History of macular degeneration Hypertension Per records Insomnia Per records Neuropathy per patient- hands and feet Sleep apnea cpap nightly with 3lpm of oygen Spinal stenosis of lumbar region Surgical History (Updated 10/20/20 @ 13:45 by Noel Agosto MD) History of appendectomy History of bilateral tubal ligation History of cataract surgery bilateral History of cholecystectomy History of colonoscopy History of cornea transplant bilateral Hx of total knee arthroplasty bilateral S/P epidural steroid injection Family History Other No family history of adverse response to anesthesia No pertinent family history Social History Smoking Status: Former smoker Second Hand Exposure: No; Do You Dip or Chew Tobacco: No; Tobacco Cessation Education Requested by Patient: No Hx Alcohol Use: No Hx Substance Use: No Preferred Language: Polish Communication Ability: Effective Visual Impairment: No Limitations Hearing Ability: Normal Corporate Security 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 current occupational status: retired Other Information That Helps Us Care for You: No Feels Safe at Home: Yes Safety Concerns: Feels Safe At This Time Assistive Devices: Denture - Upper, Glasses and Walker Review of Systems Review of Systems: All systems reviewed & are unremarkable except as noted in HPI & below Constitutional: no fever, no chills and no malaise Respiratory: no cough and no dyspnea Cardiovascular: no chest pain, no palpitations and no edema Gastrointestinal: no abdominal pain, no constipation and no diarrhea/loose stools Genitourinary: no dysuria and no hematuria Physical Exam Constitutional: WD/WN, vitals as above Respiratory: normal respiratory effort, lungs clear to auscultation Cardiovascular: RRR, no murmur, no edema Gastrointestinal (Abdomen): normal bowel sounds, soft, nontender, no hepatosplenomegaly Musculoskeletal: no cyanosis or clubbing, extremities motor strength 5/5 Skin: no rashes, warm and dry Neurologic: AAOx4, hoarse speech. Able to answer abstract questions without difficulty Psychiatric: A+Ox3, euthymic affect Results & Data Results & Data ([facility]) Vital Signs (Past 12 Hours) Vital Signs Temp Pulse Pulse Resp BP BP Pulse Ox 10/19/20 20:14 36.7 C 87 18 168/69 H 96 10/19/20 19:40 36.6 C 84 18 144/72 H 95 10/19/20 19:35 79 14 159/57 H 99 10/19/20 19:20 81 13 168/75 H 99 10/19/20 19:10 80 12 173/75 H 96 10/19/20 19:00 36.9 C 79 12 165/85 H 96 10/19/20 18:50 78 12 183/77 H 94 10/19/20 18:40 77 13 196/73 H 98 10/19/20 18:30 76 12 194/74 H 100 10/19/20 18:20 74 12 188/75 H 100 10/19/20 18:10 79 14 193/93 H 100 10/19/20 18:00 81 12 187/96 H 100 10/19/20 17:50 83 14 239/121 H 100 10/19/20 17:43 36.4 C L 84 12 170/91 H 92 10/19/20 11:45 37 C 72 20 183/90 H 95 Resident Activity Tracking Resident Involvement: Resident Care Provided Care Provided: Adult Hospital Medicine
[2020-10-19] MEDS: TOLTERODINE TARTRATE 2 MG TAB PO SCH (21:40)
[2020-10-19] MEDS ORDERED: COUGH DROP (SUGAR FREE) LOZ 24 LOZ/1 BOX BUCCAL ONE (21:41)
[2020-10-19] MEDS ORDERED: hydrALAZINE HCL 20 MG/ML VIAL IV PRN (22:54)
[2020-10-20] MEDS: INSULIN ASPART 100 UNITS/ML 3 ML PEN SC SCH ×6 (00:14→21:04)
[2020-10-20] MEDS ORDERED: INSULIN ASPART 100 UNITS/ML 3 ML PEN SC SCH (02:00)
[2020-10-20] MEDS: HYDROCODONE/ACETAMOPHEN 5/325MG TAB PO PRN ×4 (03:40→21:00)
[2020-10-20] MEDS: ceFAZolin 2000MG 2,000 MG/15 ML SYR IV SCH (04:17)
[2020-10-20] MEDS: POLYETHYLENE (MIRALAX) 17 GM PACK PO SCH ×3 (05:34→17:43)
[2020-10-20] MEDS: LACTATED RINGER'S 1,000 ML IV SCH (05:52)
[2020-10-20 06:02] LABS: Basophils # (auto) 0.01 K/uL (0-0.2); Basophils % (auto) 0.1 %; Hematocrit (blood only) 34.1 % (37-47); Hemoglobin 11.4 g/dL (12.0-16.0); Immature Granulocytes # (auto) 0.04 K/uL (0.00-0.02); Immature Granulocytes % (auto) 0.4 %; Lymphocytes # (auto) 0.88 K/uL (1.2-3.4); Lymphocytes % (auto) 9.1 %; Mean Corpuscular Hemoglobin 28.6 pg (25-34); Mean Corpuscular Hgb Conc 33.4 g/dL (32-36); Mean Corpuscular Volume 85.5 fL (80-100); Mean Platelet Volume 8.6 fL (7.4-10.4); Monocytes # (auto) 0.52 K/uL (0.11-0.59); Monocytes % (auto) 5.4 %; Neutrophils # (auto) 8.25 K/uL (1.4-6.5); Platelet Count 196 K/uL (130-400); RDW Coefficient of Variation 13.9 % (11.5-14.5); RDW Standard Deviation 43.6 fL (36.4-46.3); Red Blood Count 3.99 M/uL (4.2-5.4)
[2020-10-20 06:37] LABS: BUN Creatinine Ratio 21.5 (10-20); Creatinine Clr Calc Pharmacy 69.8 ml/min; Est GFR (Non-African American) 81.1 ml/min; Potassium 4.1 mmol/L (3.5-5.1)
[2020-10-20] MEDS: GABAPENTIN 400 MG CAP PO SCH ×3 (08:50→21:01)
[2020-10-20] MEDS: cloNIDine HCL 0.1 MG TAB PO SCH ×2 (08:50→21:00)
[2020-10-20] MEDS: CITALOPRAM 20 MG TAB PO SCH (08:50)
[2020-10-20] MEDS: TOLTERODINE TARTRATE 2 MG TAB PO SCH ×2 (08:50→21:02)
[2020-10-20] MEDS: PANTOprazole 40 MG TAB PO SCH (08:50)
[2020-10-20] MEDS: lisinopril 2.5 MG TAB PO SCH ×2 (08:50→21:02)
[2020-10-20] MEDS: TIMOLOL MALEATE 0.5% OP SOLN 5 ML BTL OPB SCH (08:51)
[2020-10-20] MEDS ORDERED: INSULIN GLARGINE SOLOSTAR 100 UNITS/ML 3 ML PEN SQ SCH (09:00)
[2020-10-20] MEDS ORDERED: PREMARIN VAG CRM 14 APPLN/30 GM TUBE PV SCH (09:00)
[2020-10-20] MEDS ORDERED: INSULIN GLARGINE SOLOSTAR 100 UNITS/ML 3 ML PEN SC STA (09:12)
--- NOTE | 2020-10-20 13:25 | Hospitalist Progress Note ---
Date of Service October 20, 2020 Assessment & Plan (1) Postoperative confusion: Plan: Improved. - Some slight confusion today with how to work the bed and TV, but otherwise alert and oriented. - Continue to monitor. (2) Diabetes: Plan: Last Hgb A1C was 6.4% on 08/28/20. - Continue Lantus 30u daily, with SSI. Glycemic consult ordered by primary team. - Had 1 episode of hypoglycemia yesterday, but none since. (3) Neurogenic claudication due to lumbar spinal stenosis: Plan: POD #1 s/p , left L5-S1 lumbar laminectomy, medial facetectomies, foraminotomies by Dr. Agosto. - pain management per primary service. - bowel regimen per primary service - PT/OT consult - plan to return to [place] in the next few days. Plan: Will continue to follow along with primary service. Admission and Anticipated Discharge Date Admission Date: October 19, 2020 Subjective 75 year old female POD #1 s/p bilateral L2-L3, left L5-S1 lumbar laminectomy, medial facetectomies, foraminotomies. Patient reports some back pain this morning. She was seen by PT. She reports she was up and walking around the halls. She does live at [facility] were she reports she will have help upon discharge. She notes she has not had a BM for 2 days, but has not eaten much and usual BMs are approximately every 3 days. She denies any issues with voiding. Review of Systems Review of Systems: All systems reviewed & are unremarkable except as noted in Subjective Physical Exam Physical Exam: Temp Pulse Resp BP Pulse Ox 36.8 C 78 18 148/69 H 96 10/20/20 12:28 10/20/20 12:28 10/20/20 12:28 10/20/20 12:28 10/20/20 12:28 She is afebrile. She is hypertensive at 148/69, but other than pain is asymptomatic. Constitutional: + obese; no acute distress ENMT: Ears: no hearing impairment Neck: trachea midline Respiratory: normal respiratory effort, lungs clear to auscultation Cardiovascular: RRR, no murmur, no edema Gastrointestinal (Abdomen): Inspection/Auscultation: + hypoactive bowel sounds Percussion/Palpation: abdomen soft; abdomen nontender Musculoskeletal: Head/Neck/Chest: normocephalic Skin: no rashes, warm and dry Psychiatric: A+Ox3, euthymic affect Lymphatic: no cervical or axillary lymphadenopathy Results & Data Results & Data ([facility]) Vital Signs (Past 12 Hours) Vital Signs Temp Pulse Resp BP Pulse Ox 10/20/20 12:28 36.8 C 78 18 148/69 H 96 10/20/20 08:00 36.8 C 78 18 145/72 H 94 10/20/20 03:27 36.6 C 89 15 147/76 H 99 PG Care Time/CCT Total # of Minutes Spent Total Time Spent with Patient: Total time spent is greater than 50% in coordination of care (as documented) at patient's floor/unit and/or counseling patient: Coding Level of Care Code 93730 Subseq Hosp Care Lvl 2 Diagnoses Postoperative confusion R41.0 Diabetes E11.9 Neurogenic claudication due to lumbar spinal stenosis M48.062
--- NOTE | 2020-10-20 13:46 | Orthopedic Progress Note ---
Date of Service October 20, 2020 Assessment & Plan (1) Status post spinal surgery: Plan: PT for mobility hospitalist, pharmacy glycemic consult in place case management consulted for discharge planning back to retirement, possibly tomorrow Admission and Anticipated Discharge Date Admission Date: October 19, 2020 Subjective pain well controlled no new numbness/weakness denies any left leg radiculopathy resolved post-op confusion mobilizing with assist x1 Hgb 11.4 this AM Glucose 189 this AM Physical Exam Physical Exam: vitals: see vital signs section; on RA dressing: clean, dry intact drain: N/A vascular: no calf tenderness or swelling bilaterally. no signs of DVT Musculoskeletal: 5/5 motor strength bilateral L2-S1 except left L5 4/5. Neurologic: Sensation 2/2 to light touch bilateral L2-S1. [facility] Vital Signs (Past 12 Hours) Vital Signs Temp Pulse Resp BP Pulse Ox 10/20/20 12:28 36.8 C 78 18 148/69 H 96 10/20/20 08:00 36.8 C 78 18 145/72 H 94 10/20/20 03:27 36.6 C 89 15 147/76 H 99 PG Care Time/CCT Total # of Minutes Spent Total Time Spent with Patient: Total time spent is greater than 50% in coordination of care (as documented) at patient's floor/unit and/or counseling patient: Coding Level of Care Code None Diagnoses Status post spinal surgery Z98.890
--- NOTE | 2020-10-20 14:01 | Pharmacy Report ---
Pharmacy Glycemic Short Note 2 - Date of Service October 20, 2020 - Glycemic Short BSG Results (Last 24 hours): 10/19/20 10/19/20 10/19/20 17:54 18:31 19:49 Glucose POC Glucose 60 L* 134 H 142 H 10/20/20 10/20/20 10/20/20 00:06 04:12 05:51 Glucose 189 H POC Glucose 211 H 189 H 10/20/20 10/20/20 07:58 12:11 Glucose POC Glucose 173 H 163 H OUTPATIENT ANTIDIABETIC REGIMEN: * Lantus 50 units SC AM * Novolog 0-12 units SC TIDM per sliding scale * HbA1c = 6.4% (08/28/20) ASSESSMENT: * 75 yo F admitted yesterday s/p lumbar laminectomy. Pharmacy was consulted postoperatively to assist with inpatient glycemic management. Patient did receive 8 mg of IV dexamethasone perioperatively. A type 2 diabetic diet is currently being tolerated. * Postoperative BSGs were 142 and 211 mg/dL. Overnight check was 189 mg/dL. * Fasting BSG slightly elevated this AM at 173 mg/dL. * Patient was originally ordered 30 units of Lantus but gave an extra 10 units to equal 40 units total. * Novolog ordered based on weight/stress of two. * ADA & AACE recommend a goal blood sugar range 140-180 mg/dl for the majority of critically ill & non-critically ill patients. However, more stringent t argets may be selected in individual cases. Will utilize more stringent goal of 100-150 mg/dl based on patient age & comorbidities. Additionally, tighter glycemic control is warranted to facilitate wound/infection healing. PLAN FOR INPATIENT GLYCEMIC CONTROL: * Basal insulin * Lantus 40 units SQ AM * Bolus insulin * NovoLog per scale ACHS or Q6hrs while NPO * Goal Range: Low 100 mg/dL - High 150 mg/dL * Correction Factor: 25 mg/dL/unit * Nutritional / Prandial insulin per carb ratio of 1 unit per 9 grams CHO consumed PLAN FOR DISCHARGE: * HbA1c is at goal for this patient. As long as patient is not experiencing any hypoglycemia at home, may resume outpatient regimen upon discharge.
[2020-10-20] MEDS ORDERED: Nursing to Pharmacy Communication SCH (19:00)
[2020-10-20] MEDS: DOCUSATE SODIUM/SENNA 50/8.6MG TAB PO SCH (21:01)
[2020-10-20] MEDS: QUEtiapine FUMARATE 25 MG TABLET PO SCH (21:02)
--- NOTE | 2020-10-20 21:46 | Billing Data ---
Date of Service October 20, 2020 Coding Level of Care Code 43071 Inpt Consult Level 3
[2020-10-21] MEDS: INSULIN ASPART 100 UNITS/ML 3 ML PEN SC SCH ×4 (00:18→12:32)
[2020-10-21] MEDS: HYDROCODONE/ACETAMOPHEN 5/325MG TAB PO PRN (05:27)
[2020-10-21] MEDS: CITALOPRAM 20 MG TAB PO SCH (08:00)
[2020-10-21] MEDS: cloNIDine HCL 0.1 MG TAB PO SCH (08:01)
[2020-10-21] MEDS: GABAPENTIN 400 MG CAP PO SCH (08:02)
[2020-10-21] MEDS: lisinopril 2.5 MG TAB PO SCH (08:03)
[2020-10-21] MEDS: PANTOprazole 40 MG TAB PO SCH (08:04)
[2020-10-21] MEDS: TOLTERODINE TARTRATE 2 MG TAB PO SCH (08:05)
[2020-10-21] MEDS: TIMOLOL MALEATE 0.5% OP SOLN 5 ML BTL OPB SCH (08:05)
[2020-10-21] MEDS ORDERED: INSULIN GLARGINE SOLOSTAR 100 UNITS/ML 3 ML PEN SQ SCH (09:00)
[2020-10-21] MEDS ORDERED: CHLORTHALIDONE 25 MG TAB PO SCH (09:15)
[2020-10-21] MEDS ORDERED: HYDROCODONE/ACETAMINOPHEN 7.5/325MG TAB PO PRN (09:40)
--- NOTE | 2020-10-21 09:49 | Orthopedic Progress Note ---
Date of Service October 21, 2020 Assessment & Plan (1) Status post spinal surgery: Plan: hospitalist service for blood pressure management pain medication dose increased to 7.5 hydrocodone to help with mobility once blood pressure management plan finalized, may be d/c'd to nursing facility Admission and Anticipated Discharge Date Admission Date: October 19, 2020 Subjective pain with PT, pain meds increased in dose no new numbness/weakness denies any left leg radiculopathy mobilizing with PT with watchful guarding at side needs assistance for clothing, intermediate able to provide assistance with this Physical Exam Physical Exam: vitals: see vital signs section; on RA, sBP 172. dressing: clean, dry intact drain: N/A vascular: no calf tenderness or swelling bilaterally. no signs of DVT Musculoskeletal: 5/5 motor strength bilateral L2-S1 except left L5 4/5. Neurologic: Sensation 2/2 to light touch bilateral L2-S1. Results & Data ([facility]) Vital Signs (Past 12 Hours) Vital Signs Temp Pulse Resp BP Pulse Ox 10/21/20 07:20 37.1 C 97 H 16 172/71 H 94 10/20/20 22:09 36.9 C 86 18 153/74 H 95 PG Care Time/CCT Total # of Minutes Spent Total Time Spent with Patient: Total time spent is greater than 50% in coordination of care (as documented) at patient's floor/unit and/or counseling patient: Coding Level of Care Code None Diagnoses Status post spinal surgery Z98.890
--- NOTE | 2020-10-21 10:50 | Hospitalist Progress Note ---
Date of Service October 21, 2020 Assessment & Plan (1) Postoperative confusion: Plan: Improved. - Continue home Celexa, Seroquel, and lorazepam (2) Diabetes: Plan: Last Hgb A1C was 6.4% on 08/28/20. - Continue Lantus 30u daily, with SSI. Glycemic consult ordered by primary team. - Had 1 episode of hypoglycemia 2 days ago, none since. Glucose has remained less than 200 the past 24hrs. (3) Neurogenic claudication due to lumbar spinal stenosis: Plan: POD #2 s/p , left L5-S1 lumbar laminectomy, medial facetectomies, foraminotomies by Dr. Agosto. - pain management per primary service. - bowel regimen per primary service - PT/OT consult - plan to return to [facility] upon discharge. (4) Hypertension: Plan: BP was 172/71 this morning. She has been hypertensive her entire stay. - Pain is likely a factor, however I do see persistent hypertension noted in EMR documentation since 2018. - She is on clonidine as an outpatient. No other meds for HTN. - Hydralazine was ordered for SBP >200 and DBP >100. She has not needed this thus far. - Chlorthalidone 12.5mg PO daily started this morning. BP improved to 133/71. Continue daily chlorthalidone. Follow-up with primary care in 1 week. Could also consider Lisinopril over chlorthalidone as she is diabetic. (5) DVT prophylaxis: Plan: TEDs/SCDs Plan: D/c per primary service. Admission and Anticipated Discharge Date Admission Date: October 19, 2020 Subjective Patient continues to have pain this morning. She states it is a 2-3/10 when sitting, and increases to 8/10 with activity. Pain medication dosing increased by primary service yesterday. She reports she had a BM this morning. Denies voiding issues. Review of Systems Review of Systems: All systems reviewed & are unremarkable except as noted in Subjective Physical Exam Constitutional: + obese; no acute distress Eyes: + anicteric sclerae ENMT: Ears: no hearing impairment Neck: trachea midline, no thyromegaly Respiratory: normal respiratory effort, lungs clear to auscultation Cardiovascular: RRR, no murmur, no edema Gastrointestinal (Abdomen): Inspection/Auscultation: normal bowel sounds Percussion/Palpation: abdomen soft; abdomen nontender Skin: no rashes, warm and dry Psychiatric: A+Ox3, euthymic affect Lymphatic: no cervical or axillary lymphadenopathy Results & Data Results & Data ([facility]) Vital Signs (Past 12 Hours) Vital Signs Temp Pulse Pulse Resp BP Pulse Ox 10/21/20 10:20 83 16 141/77 H 94 10/21/20 07:20 37.1 C 97 H 16 172/71 H 94 PG Care Time/CCT Total # of Minutes Spent Total Time Spent with Patient: Total time spent is greater than 50% in coordination of care (as documented) at patient's floor/unit and/or counseling patient: Coding Level of Care Code 98849 Subseq Hosp Care Lvl 2 History Expanded Problem Focused Exam Expanded Problem Focused Diagnoses Postoperative confusion R41.0 Diabetes E11.9 Neurogenic claudication due to lumbar spinal stenosis M48.062 Hypertension I10 DVT prophylaxis Z29.9
--- NOTE | 2020-10-21 12:13 | Discharge Summary ---
Date of Service October 21, 2020 Principal Diagnosis neurogenic claudication, left leg radiculopathy Discharge Data Allergies Allergy/AdvReac Type Severity Reaction Status Date / Time latex Allergy Mild ON [facility] Verified 10/19/20 11:38 LIST-per patient- thinks rash niacin Allergy Mild ON Verified 10/19/20 11:38 [facility] LIST- per patient "probably rash" simvastatin Allergy Unknown ON Verified 10/19/20 11:38 [facility] LIST- unsure Consultations 10/19/20 19:53 Consult Hospitalist Routine Procedures Performed Operation Date: 10/19/20 12:35 Actual Procedures p Bilateral L2-L3, Left L5-S1 Lumbar Laminectomy, Medial Facetectomies, Foraminotomies(Not Applicable) - Noel Agosto MD Hospital Course (1) Status post spinal surgery: Patient underwent the above mentioned procedure. There were no complications noted intra-op. Post-operatively, patient was sent to recovery and then floor. Pain was well-controlled throughout stay. Patient was followed closely by hospitalist service throughout stay and was cleared for discharge medically by this team. Elevated blood pressure was noted during the hospital stay and patient's anti-hypertensives were optimized by the hospitalist team prior to discharge. Patient was able to ambulate, void, and tolerate PO intake at time of discharge. Verbal discharge and follow-up instructions were given. Total Time Total Time Spent Total Time Spent (In Minutes): 25 Discharge Plan Discharge Items Patient Disposition: Hospice - Home Reason For Visit: Neurogenic Claudication, left leg radiculopathy Discharge Diagnosis: Neurogenic claudication, left leg radiculopathy Activity: Per Instructions section Non-emergency contact: Primary Care Provider and Surgeon Call non-emergency contact if: you have any medication questions Follow-up/Referrals: Petar Hightower DO [Primary Care Provider] - Diet: Carb Consistent or DM2 Addtl Attending Provider Instructions: Posterior Lumbar Decompression, Microlaminectomy or Microdiscectomy Recovery Please hold your home Aspirin dose for 5 days post-op. What to expect You've had surgery: the first step toward the goals of decreasing back and leg pain, improving the ability to stand and walk, and stopping symptoms of nerve compression from getting worse. Now it's time to focus on healing. By following these tips, you will set yourself up for a successful outcome after surgery. Top things to know 1. A moderate or increased amount of back pain is expected after surgery. This will get better over the next four to six weeks. 2. Leg pain usually gets better after surgery, but may not be completely gone. Numbness, tingling and weakness take longer to get better after surgery. This is normal. Pain and weakness Back pain and muscle spasms are normal after surgery. These should get better over the next few weeks. Numbness, tingling and weakness that you had before surgery may take time to improve. Taking care of your incision Your incision may bleed and your dressing may get saturated with blood. This is normal. Change your dressing as often as needed to keep the incision clean and dry. If your incision has no bleeding or drainage, you can take your dressing off one to two days after surgery, but always keep the incision area clean and dry. If you have skin glue or tape on your incision, try to leave it in place for the first two weeks. Showering You can take a shower three days after surgery, once the incision is closed and doesn't have drainage. Let gentle soap and water run over the incision. Do not scrub it. Pat dry with a clean towel. Avoid taking tub baths, swimming and going in hot tubs until the incision is completely healed (tour to six weeks). Taking medication You may take anti-inflammatory medications (NSAIDs) to help relieve pain. NSA IDs include ibuprofen, Advil, Aleve, naproxen, Naprosyn, Mobic, meloxicam, Celebrex and diclofenac. If you have kidney or heart disease, stomach ulcers or you take blood thinners, check with your primary care provider before taking NSAIDs. If you need refills on your prescriptions, you may contact our office at least two days before you are out of pills so we have sufficient time to process your request. Refill requests on Thursday afternoons and holidays likely will be addressed on the next business day. Start weaning yourself from pain medications as soon as you are able. Remember, pain is a natural part of the healing process. The goal is not lo eliminate all pain but to keep you comfortable as you heal. Pain medications should be used only for a short period of time. Before taking Tylenol (acetaminophen), be aware that your pain medication probably has acetaminophen in it. Taking additional Tylenol or acetaminophen can put you over the daily recommended 3,000 milligrams, which can harm your liver. If you are taking a muscle relaxant, one of the side effects is drowsiness. If you feel too drowsy to safely get up and move around, take the muscle relaxant less often. Be active, but no lifting We want you to be active as soon as you get home from the hospital. Get up and walk often. If you go up and downstairs, make sure you hold onto the railing and have someone with you. Avoid excessive bending and twisting, and do not lift anything over 10 pounds until your surgeon says it's OK. And no driving You cannot drive until you are no longer taking narcotic pain medications or muscle relaxants and you can move well enough to be safe behind the wheel. Most patients can begin driving after the 6 week postoperative appointment. Your surgeon will let you know when you can start driving. Eating Ice and Popsicles can help relieve a sore throat. Eat soft foods that are easy to swallow. Take small bites and chew your food well. You can begin eating other foods gradually as you start to feel better. Constipation and bloating Constipation is a common side effect of taking narcotic pain medication and a good reason to begin tapering yourself off of pain medication as soon as you can. Drink lots of fluid, be active, and eat foods high in fiber to help relieve constipation. If constipation is bothering you, a stool softener or laxative may help. Try one of the following, and always follow the instructions: Milk of Magnesia, MiraLAX, Dulcolax, suppository Fleet enema, magnesium citrate. Follow up with your primary care provider If you have any health concerns, see your primary care provider within one week after surgery, especially if you have any of the following: Heart disease or have had a stroke Lung disease Diabetes Are over age 65 Take a blood thinner Take more than 10 prescription medications When is it an emergency? If you have any of the following symptoms call 911 or go to an emergency room right away: Trouble breathing Chest pain Significant new weakness since your surgery If you have any other concern, call our office at [phone] before going to an emergency room. In most cases we can help you or get you an appointment quickly. Addtl [employer] Provider Instructions: started on Chlorthalidone 12.5mg daily while here, will continue this on discharge follow up closely with PCP this week for blood pressure check, consider dose adjustments on other medications Pending Studies at Discharge: No Stand-Alone Forms: [facility] Medications and DC Order Prescriptions: New hydrocodone-acetaminophen 7.5-325 mg Tablet 1 - 2 tab PO Q4H PRN (Reason: pain) Qty: 30 RF: 0 hydrocodone-acetaminophen 7.5-325 mg tablet 1 tab PO Q4H Qty: 20 RF: 0 chlorthalidone 25 mg tablet 12.5 mg PO DAILY Qty: 14 RF: 0 Continued Premarin 0.625 mg/gram cream 0.625 mg PV DAILY Qty: 30 RF: 2 methenamine hippurate 1 gram tablet 1 gm PO Q12H Qty: 60 RF: 12 clonidine HCl 0.1 mg Tablet 0.1 mg PO BID RF: 0 polyethylene glycol 3350 17 gram Powder In Packet 17 g PO QAM RF: 0 meloxicam 15 mg Tablet 15 mg PO HS RF: 0 fluorometholone 0.1 % Drops,Suspension 1 drp OPB QAM RF: 0 omeprazole 20 mg Capsule,Delayed Release(Dr/Ec) 20 mg PO QAM RF: 0 lorazepam 1 mg Tablet 1 mg PO HS RF: 0 Lantus Solostar U-100 Insulin 100 unit/mL (3 mL) Insulin Pen 50 unit SUBCUT QAM RF: 0 PreserVision AREDS-2 [phone] Capsule 1 tab PO BID RF: 0 tolterodine 2 mg Tablet 2 mg PO BID RF: 0 timolol 0.5 % Drops 1 drp OPB QAM RF: 0 glucose 4 gram Tablet,Chewable 1 tab PO UD RF: 0 nystatin [Nystop] 100,000 unit/gram Powder 1 applic TOPICAL TID PRN (Reason: AFFECTED AREAS) RF: 0 quetiapine 50 mg Tablet 50 mg PO HS RF: 0 citalopram [Celexa] 20 mg Tablet 20 mg PO QAM RF: 0 acetaminophen [Tylenol] 325 mg Tablet 650 mg PO Q6H MDD MAX 3 GRAMS APAP/24 HOURS. PRN (Reason: Fever Or Pain) RF: 0 hydrocortisone 2.5 % cream See Rx Instructions .ROUTE .COMPLEX Qty: 28 RF: 0 gabapentin 400 mg Capsule 400 mg PO TID RF: 0 lisinopril 2.5 mg Tablet 2.5 mg PO BID RF: 0 insulin lispro [Humalog KwikPen Insulin] 100 unit/mL insulin pen 0 - 12 unit SUBCUT UD RF: 0 diclofenac sodium 1 % Gel 2 g TOPICAL QID PRN (Reason: Pain) RF: 0 Metamucil 3.4 gram/5.4 gram Powder 1 tbsp PO DAILY RF: 0 Discontinued aspirin 81 mg Tablet,Delayed Release (Dr/Ec) 81 mg PO QAM RF: 0 ibuprofen 800 mg Tablet 800 mg PO TID PRN (Reason: Pain) RF: 0 amoxicillin 500 mg Capsule 2,000 mg PO UD RF: 0 Discharge Orders: Discharge Order (Routine); Ordered 10/21/20 Ordered By: Noel Agosto Admission Data Admit Date/Time: 10/19/20 17:45 Attending Provider: Noel Agosto Admit Provider: Noel Agosto Primary Care Provider: Petar Hightower Other Providers: Mehgan Phoenix ; Benito Hoover ; Ceferino Perez ; Randal Mcghee ; Parmjit Marks ; Jonas Tee ; Marnie Tracy ; Mela Tinoco ; Paul Aparicio ; Debora Contreras ; Margi Lopez ; Ramirez Adam ; Gene Garcia ; Linus Fuentes ; Meghan Gaffney ; Nixon Montero ; Kaiser Rogers ; Brien Thomas ; Benito Plaza ; Michael Pascual ; Amparo Lomeli ; Marcos Bergman ; Debora Sánchez ; Mahendra Carter ; Yogesh Verduzco Coding Level of Care Code D/C DAY MANAGEMENT <30 MINS Diagnoses Status post spinal surgery Z98.890
--- NOTE | 2020-10-23 13:48 | Operative Report ---
[facility] Post Operative Report Pre & Post Diagnosis Operation Date: 10/19/20 12:35 Pre-Op Diagnosis: combined neurogenic claudication and left leg radiculopathy with severe central stenosis at L2-3 and moderate foraminal stenosis at left L5-S1 Post-Op Diagnosis: combined neurogenic claudication and left leg radiculopathy with severe central stenosis at L2-3 and moderate foraminal stenosis at left L5-S1 I identified the patient and participated in the time-out.: Yes Procedure 1. Bilateral lumbar laminectomy L2, medial facetectomies and foraminotomies L2- L3 1. Left lumbar laminectomy L5, medial facetectomies and foraminotomies L5-S1 Surgeon Noel Agosto MD [employer]otive Quality Manager Gene Fung PA-C Estimated Blood Loss 150 Findings Consistent with Post-Op Diagnosis Specimens none Description of Procedure Indications: Patient is a 75 year old woman with several year history of symptoms in keeping with combined neurogenic claudication and left leg radiculopathy. She presented to my clinic first on July 30, 2020. Patient described his neurogenic claudication and radiculopathy symptoms as contributing equally to her functional limitations. She had maximized non-operative management with exception of injection and surgery. MRI imaging was completed, showing severe central stenosis at L2-3 and moderate foraminal stenosis at left L5-S1. Patient was sent for a diagnostic and therapeutic injection, completed on 08/15/20 (left L5-S1 TF SILVIANO) which provided her with 50% relief of her symptoms for 1 week. She followed up with me on 10/01/20 at which time I had an opportunity to discuss with her options available including continued non-op management, repeat injection at the L5-S1 level or the L2-3 level, or surgical management of her issues. Patient was interested in surgical management of the problem given short duration of relief from her prior injection, and preferred to have both issues addressed at the same time. Informed consent was obtained and patient was booked for above procedure. On day of surgery, patient was identified in pre-op holding area. History and Physical was updated, surgical site was marked, and consent was confirmed. Risks, benefits and alternatives were discussed again and I answered all their questions. Implants: none Drains: none Description of procedure: Patient was brought to the operating room and underwent general anesthesia. SCDs were applied to bilateral legs to reduce risk of DVT. Patient was place prone on a Genaro frame. Face, eyes, bony prominences, and peripheral nerves were well protected. The lumbar spine was prepped with alcohol and Chloraprep and draped in standard sterile fashion. A time-out was performed and documented. This included confirmation of administration of prophylactic antibiotics. Two spinal needles were inserted and a lateral xray taken to localize the incisions for both levels. A midline incision was first made around the L2-3 level. The incision was carried through the subcutaneous tissue with cautery. The fascia was incised and subperiosteal dissection carried over the lamina. The Rosy retractor was placed. A #4 [place] elevator was positioned under the lamina and a galen was place on the exposed spinous process. Lateral localization xray was taken and once appropriate level was confirmed, the level was marked. A high speed louisa was used to perform a bilateral laminectomy of L2 up to the insertion of the ligamentum flavum. An up-angled curette was used to free the ligamentum flavum from its cranial and caudal attachments and it was removed with Kerrison rongeurs. Partial medial facetectomies and foraminotomies were performed using a louisa and [place] rongeurs to open up the lateral recess and decompress the traversing and exiting nerve roots. At the conclusion of this decompression, a ball-tipped probe was able to be freely passed into the foramens and through the lateral recesses. Attention was then placed on the L5-S1 level. A midline incision was first made around the L5-S1 level. The incision was carried through the subcutaneous tissue with cautery. The fascia was incised and subperiosteal dissection carried over the lamina. The Rosy retractor was placed. A #4 [place] elevator was positioned under the lamina. Lateral localization xray was taken and once appropriate level was confirmed, the level was marked. A high speed louisa was used to perform a left hemilaminectomy of L5 up to the insertion of the ligamentum flavum. An up-angled curette was used to free the ligamentum flavum from its cranial and caudal attachments and it was removed with [place]ison rongeurs. Partial left medial facetectomy and foraminotomy were performed using a louisa and [place]ison rongeurs to open up the lateral recess and decompress the traversing and exiting nerve roots. At the conclusion of this decompression, a ball-tipped probe was able to be freely passed into the left foramen and through the lateral recess. Both wounds were then copiously irrigated. No spinal fluid leaks were identified. The wounds were assessed for any sources of bleed and hemostasis was achieved prior to closure. To reduce risk of post-op infection, 1g of vancomycin powder was applied to the deep and superficial layers prior to closure at each level. The wounds were closed in layers with #1 Vicryl for fascia, 2-0 Vicryl sutures for subcutaneous superficial closure and 3-0 Stratafix suture for subcuticular superficial closure. Steri-strips and sterile dressings were applied. The patient was then flipped supine, awakened and taken to the recovery room in stable condition. There were no intra-operative complications noted. Sponge and needle counts were correct x2 at the conclusion of the case. I attest to the content of the Intraoperative Record and any orders documented therein. Any exceptions are noted below.
== END 2020-10-21 14:04 | disposition home or self-care (01) | DRG 517 ==
LOC: ASU 10:39 → 3E 17:45

== ENCOUNTER 2023-03-18 20:31 | Inpatient (IN) ==
[2023-03-18] MEDS ORDERED: fentaNYL citrate PF 100 MCG/2 ML VIAL IV ONE (20:36)
--- NOTE | 2023-03-18 20:36 | Emergency Department Note ---
History of Present Illness General Chief Complaint: Heart Alert Stated Complaint: HEART ALERT History of Present Illness Provider Complaint: chest pain Onset (ago): hour(s) 1 Duration: improved Onset: during rest Pain Location: substernal and left chest Pain Radiation: LUE, neck and jaw/teeth Maximum Pain Intensity: 10 Current Pain Intensity: 4 Quality: + heaviness and + sharp Relieved By: + nitroglycerin and + other (fentanyl) Exacerbated By: + nothing Context: no recent illness, no recent surgery, no recent travel, no trauma/injury or no history of DVT/PE Associated symptoms: no vomiting, no fever or no cough Treatments prior to arrival: aspirin and nitroglycerin (3 SL) Home Medications Medication Instructions Recorded Confirmed Type fluorometholone 0.1 % eye 1 drp OPB QAM 11/26/17 02/24/23 History drops,suspension glucose 4 gram chewable tablet 1 tab PO UD HYPOGLYCEMIA 11/26/17 02/24/23 History omeprazole 20 mg capsule,delayed 20 mg PO QAM 11/26/17 02/24/23 History release polyethylene glycol 3350 17 gram 17 g PO QAM 11/26/17 02/24/23 History oral powder packet quetiapine 50 mg tablet 50 mg PO HS 11/26/17 02/24/23 History timolol 0.5 % eye drops 1 drp OPB QAM 11/26/17 02/24/23 History tolterodine 2 mg tablet 2 mg PO BID 11/26/17 02/24/23 History acetaminophen 325 mg tablet 650 mg PO Q6H PRN Fever Or Pain 06/12/18 02/24/23 History (Tylenol) citalopram 20 mg tablet (Celexa) 20 mg PO QAM 06/12/18 02/24/23 History diclofenac sodium 1 % topical gel 2 g topical QID PRN Pain 10/12/20 02/24/23 History insulin lispro 100 unit/mL 0 - 12 unit subcut UD 10/12/20 02/24/23 History subcutaneous pen (Humalog KwikPen (U-100) Insulin) aspirin 81 mg tablet,delayed 81 mg PO DAILY 03/27/21 02/24/23 History release (Adult Aspirin Regimen) menthol 0.44 %-zinc oxide 20.6 % 1 applic topical BID PRN skin 07/23/21 02/24/23 Rx topical ointment in packet irritation #504 grams (Calmoseptine) vit C,V-Lc-exxor-lutein-zeaxan 1 cap PO BID 05/05/22 02/24/23 History [PreserVision AREDS-2] ketoconazole 2 % topical cream 1 applic topical BID #30 grams 11/24/22 02/24/23 Rx nystatin 100,000 unit/gram topical 1 applic topical .COMPLEX PRN 11/24/22 02/24/23 History cream gabapentin 100 mg capsule 100 mg PO TID 01/12/23 02/24/23 History gabapentin 800 mg tablet 800 mg PO TID 01/12/23 02/24/23 History lisinopril 40 mg tablet 40 mg PO DAILY #30 tabs 01/12/23 02/24/23 Rx pen needle, diabetic, safety 30 #100 ea 01/12/23 02/24/23 History gauge x 1/3" (Novofine Autocover) loperamide 2 mg capsule (Imodium 2 mg PO Q6H PRN loose stool #60 01/21/23 02/24/23 Rx A-D) caps terbinafine HCl 250 mg tablet 250 mg PO DAILY #14 tabs 01/21/23 02/24/23 Rx psyllium husk 0.4 gram capsule 0.4 g PO DAILY 02/03/23 02/24/23 History (Metamucil) methenamine hippurate 1 gram tablet 1 g PO Q12H #180 tabs 02/12/23 02/24/23 Rx insulin glargine 100 unit/mL (3 8 unit (0.08 mL) subcut DAILY #15 02/13/23 02/24/23 Rx mL) subcutaneous pen (Lantus mL Solostar U-100 Insulin) ergocalciferol (vitamin D2) 1,250 50,000 unit PO WEEKLY #12 caps 02/24/23 02/24/23 Rx mcg (50,000 unit) capsule spironolactone 50 mg tablet 50 mg PO BID #60 tabs 02/25/23 Rx lorazepam 0.5 mg tablet 0.5 mg PO DAILY PRN anxiety #30 03/04/23 Rx tabs dulaglutide 3 mg/0.5 mL 3 mg (0.5 mL) subcut ONCE #2 mL 03/17/23 Rx subcutaneous pen injector (Trulicity) Allergies Allergy/AdvReac Type Severity Reaction Status Date / Time latex Allergy Mild ON [facility] Verified 02/24/23 11:26 LIST-per patient- thinks rash niacin Allergy Mild ON Verified 02/24/23 11:26 [facility] LIST- per patient "probably rash" simvastatin Allergy Unknown ON Verified 02/24/23 11:26 [facility] LIST- unsure Past Med/Surg History Medical History Proteinuria Glaucoma History of recurrent UTI (urinary tract infection) Insomnia Per records Neuropathy per patient- hands and feet Depression Per records Hypertension Per records History of macular degeneration Chronic back pain GERD (gastroesophageal reflux disease) hx Diabetes mellitus, type 2 IDDM Sleep apnea cpap nightly with 3lpm of oygen Spinal stenosis of lumbar region Neurogenic claudication due to lumbar spinal stenosis History of nephrolithiasis Nasal bone fracture Cholecystitis, acute Surgical History Status post spinal surgery History of bilateral tubal ligation Hx of total knee arthroplasty bilateral S/P epidural steroid injection History of cholecystectomy History of colonoscopy History of cornea transplant bilateral History of cataract surgery bilateral History of appendectomy Family History Mother Breast cancer Aunt Colorectal cancer Diabetes Father Myocardial infarction Other No family history of adverse response to anesthesia No pertinent family history Denies family history of Ovarian cancer Prostate cancer Social History Smoking Status: Never smoker Tobacco Type: Cigarettes Second Hand Exposure: No; Do You Dip or Chew Tobacco: No; Hx Alcohol Use: No Hx Substance Use: No Preferred Language: Turkmen Communication Ability: Effective Visual Impairment: No Limitations Hearing Ability: Normal Physician Vice President Required: No Beliefs That Will Affect Care: None marital status: Current Living Situation: Personal Care Facility Current Living Situation Comment: [facility] current occupational status: retired How many Children do You have: 2 Feels Safe at Home: Yes Childhood Exposure to Second-Hand Smoke: No Diet: regular caffeine: No during the past year weight has: remained stable Dental Care, Regularly: Yes Physical Activity Frequency: Does not Exercise Seatbelt Use: always Sunscreen Use: Yes Assistive Devices: Glasses and Walker Physical Exam Vital Signs Vital Signs - 24 hr 03/18/23 20:35 03/18/23 20:35 03/18/23 20:35 Temperature Temperature Source Pulse Rate 101 H 101 H Pulse Rate from SpO2 Sensor 99 H Pulse Rhythm Pulse Strength Respiratory Rate 33 H Respiratory Effort / Characteristics Respiratory Depth Respiratory Pattern Blood Pressure Blood Pressure Mean Blood Pressure Position Pulse Oximetry 97 95 Oxygen Delivery Method Room Air Oxygen Flow Rate 0 Sepsis Recent Fever Within 48 Hours Sepsis New/Unexplained Change in Mental Status Sepsis Action Taken by Nursing 03/18/23 20:38 03/18/23 20:38 03/18/23 20:40 Temperature 36.6 C Temperature Source Oral Pulse Rate 98 H 98 H Pulse Rate from SpO2 Sensor 97 H Pulse Rhythm Regular Pulse Strength Normal Respiratory Rate 15 18 Respiratory Effort / Characteristics Non-Labored Spontaneous Respiratory Depth Normal Respiratory Pattern Regular Blood Pressure 193/98 H 161/88 H Blood Pressure Mean 138 112 Blood Pressure Position Semi-fowlers Pulse Oximetry 97 98 Oxygen Delivery Method Room Air Oxygen Flow Rate Sepsis Recent Fever Within 48 Hours No Sepsis New/Unexplained Change in Mental Status No Sepsis Action Taken by Nursing No Action Required 03/18/23 20:40 03/18/23 20:40 03/18/23 20:45 Temperature Temperature Source Pulse Rate 98 H 98 H Pulse Rate from SpO2 Sensor 98 H Pulse Rhythm Regular Pulse Strength Respiratory Rate 17 18 Respiratory Effort / Characteristics Respiratory Depth Respiratory Pattern Blood Pressure 194/99 H Blood Pressure Mean 142 Blood Pressure Position Pulse Oximetry 96 98 Oxygen Delivery Method Room Air Oxygen Flow Rate Sepsis Recent Fever Within 48 Hours Sepsis New/Unexplained Change in Mental Status Sepsis Action Taken by Nursing 03/18/23 20:45 03/18/23 20:45 03/18/23 20:50 Temperature Temperature Source Pulse Rate 97 H Pulse Rate from SpO2 Sensor 97 H Pulse Rhythm Pulse Strength Respiratory Rate 17 Respiratory Effort / Characteristics Respiratory Depth Respiratory Pattern Blood Pressure 175/87 H 161/88 H Blood Pressure Mean 130 115 Blood Pressure Position Pulse Oximetry 97 Oxygen Delivery Method Oxygen Flow Rate Sepsis Recent Fever Within 48 Hours Sepsis New/Unexplained Change in Mental Status Sepsis Action Taken by Nursing 03/18/23 20:50 03/18/23 21:08 03/18/23 22:03 Temperature 36.6 C Temperature Source Oral Pulse Rate 102 H 101 H Pulse Rate from SpO2 Sensor 98 H Pulse Rhythm Pulse Strength Respiratory Rate 23 18 Respiratory Effort / Characteristics Respiratory Depth Respiratory Pattern Blood Pressure 161/88 H Blood Pressure Mean Blood Pressure Position Pulse Oximetry 97 97 Oxygen Delivery Method Room Air Oxygen Flow Rate Sepsis Recent Fever Within 48 Hours Sepsis New/Unexplained Change in Mental Status Sepsis Action Taken by Nursing Physical Exam GENERAL: oriented to person, place, and time. appears well-developed and well- nourished. HENT: Exam performed. - Head: Normocephalic and atraumatic. EYES: Conjunctivae and EOM are normal. Right eye exhibits no discharge. Left eye exhibits no discharge. No scleral icterus. NECK: Normal range of motion. Neck supple. No JVD present. CV: Normal rate, regular rhythm, normal heart sounds and intact distal pulses. There is no peripheral edema. Palpable radial pulses bue. PULM/CHEST: Effort normal and breath sounds normal. No respiratory distress. No stridor. no wheezes. no rales. ABD: The abdomen is soft. There is no tenderness. NEURO: Motor and sensation grossly intact. SKIN: Skin is warm and dry. He is not diaphoretic. PSYCH: normal mood and affect. Behavior is normal. Judgment and thought content normal. Course Course 2023: EKG conducted at 2009 by EMS was reviewed by me and shows sinus rhythm with a rate of 103. NM 160 QRS [address] elevation in leads II, III and aVF. Heart alert called 2034: The patient was evaluated in room B1. A complete history and physical exam was performed Cardiac monitoring: An order was placed for continuous cardiac monitoring. The monitor shows a rate of 90 with sinus rhythm interpreted by me 2045: Dr. Martinez at bedside. 2100: Patient to go off to [facility]. Administered Medications Discontinued Medications Fentanyl Citrate (Fentanyl Citrate Pf 100 Mcg/2 Ml Vial) 50 mcg IV NOW ONE Stop: 03/18/23 20:37 Last Admin: 03/18/23 20:42 Dose: 50 mcg Documented By: MIKE Fentanyl Citrate (Fentanyl Citrate Pf 100 Mcg/2 Ml Vial) Confirm Administered Dose 100 mcg .ROUTE .STK-MED ONE Stop: 03/18/23 20:39 Last Admin: 03/18/23 20:41 Dose: Not Given Documented By: MIKE Fentanyl Citrate (Fentanyl Citrate Pf 100 Mcg/2 Ml Vial) Confirm Administered Dose 100 mcg .ROUTE .STK-MED ONE Stop: 03/18/23 20:40 Last Admin: 03/18/23 21:49 Dose: 100 mcg Documented By: GEOVANNY Heparin Sodium (Porcine) (Heparin (Porcine) 1000 Unit/Ml 10 Ml ([facility] Use Only)) Confirm Administered Dose 10,000 units .ROUTE .STK-MED ONE Stop: 03/18/23 20:40 Last Admin: 03/18/23 21:49 Dose: 8,000 units Documented By: GEOVANNY Heparin Sodium/Sodium Chloride (Heparin In Nss Infusion 1000 Unit/500 Ml (2 U/Ml) Bag) Confirm Administered Dose 3,000 units IV .STK-MED ONE Stop: 03/18/23 20:40 Last Admin: 03/18/23 21:49 Dose: 3,000 units Documented By: GEOVANNY Midazolam HCl (Midazolam Hcl 1 Mg/Ml 2ml Vial) Confirm Administered Dose 2 mg .ROUTE .STK-MED ONE Stop: 03/18/23 20:40 Last Admin: 03/18/23 21:49 Dose: 4 mg Documented By: GEOVANNY Midazolam HCl (Midazolam Hcl 1 Mg/Ml 2ml Vial) Confirm Administered Dose 2 mg .ROUTE .STK-MED ONE Stop: 03/18/23 21:25 Last Admin: 03/18/23 21:51 Dose: Not Given Documented By: GEOVANNY Nicardipine HCl (Nicardipine Hcl Inj 2.5 Mg/Ml 10 Ml Amp) Confirm Administered Dose 25 mg .ROUTE .STK-MED ONE Stop: 03/18/23 20:40 Last Admin: 03/18/23 21:50 Dose: 25 mg Documented By: GEOVANNY Nitroglycerin/Dextrose (Nitroglycerin/D5w 100mcg/Ml 20ml Syr) Confirm Administered Dose 2,000 mcg .ROUTE .STK-MED ONE Stop: 03/18/23 20:41 Last Admin: 03/18/23 21:50 Dose: 2,000 mcg Documented By: GEOVANNY Ticagrelor (Ticagrelor 90 Mg Tab) Confirm Administered Dose 180 mg .ROUTE .STK- MED ONE Stop: 03/18/23 21:02 Last Admin: 03/18/23 21:51 Dose: 180 mg Documented By: GEOVANNY Medical Decision Making Laboratory Data 03/18/23 20:25 03/18/23 20:25 Labs: Lab Results 03/18/23 03/18/23 03/18/23 Range/Units 20:25 20:37 21:25 WBC 5.78 (4.8-10.8) K/ul RBC 4.31 (4.20-5.40) M/uL Hgb 12.3 (12.0-16.0) g/dl POC Hgb 11.9 L (12.0-16.0) g/dl Hct 36.5 L (37.0-47.0) % POC Hct 35 L (37-47) % MCV 84.7 (80.0-100.0) fL MCH 28.5 (25.0-34.0) pg MCHC 33.7 (32.0-36.0) g/dL RDW Std Deviation 43.0 (36.4-46.3) fL RDW Coeff of Brian 13.9 (11.5-14.5) % Plt Count 233 (130-400) K/uL MPV 9.0 L (9.4-12.4) fL Immature Gran % (Auto) 0.3 % Neut % (Auto) 59.3 % Lymph % (Auto) 23.9 % Pinal % (Auto) 7.8 % Eos % (Auto) 8.0 % Baso % (Auto) 0.7 % Neut # (Auto) 3.43 (1.40-6.50) K/uL Lymph # (Auto) 1.38 (1.20-3.40) K/uL Pinal # (Auto) 0.45 (0.11-0.59) K/uL Eos # (Auto) 0.46 (0.00-0.50) K/uL Baso # (Auto) 0.04 (0.00-0.20) K/uL Immature Gran # (Auto) 0.02 (0.01-0.20) K/uL PT 10.7 (9.0-12.0) Seconds INR 1.0 (0.9-1.1) APTT 25 (21-31) Seconds PTT Ratio 0.9 Activ Coag Time Kaolin 255 H (94-140) SECONDS POC Sodium 133 L (135-144) mmol/L Sodium 131 L (136-145) mmol/L POC Potassium 5.0 (3.3-5.0) mmol/L Potassium 4.9 (3.5-5.1) mmol/L POC Chloride 105 (101-112) mmol/L Chloride 104 (98-107) mmol/L Carbon Dioxide 19 L (21-32) mmol/L POC Total CO2 19 L (24-31) mmol/L Anion Gap 8 (3-11) POC Anion Gap 15.0 L (16-25) mmol/L POC BUN 35 H (7-18) mg/dl BUN 37 H (6-23) mg/dl Creatinine 1.33 H (0.6-1.2) mg/dl POC Creatinine 1.6 H (0.6-1.3) mg/dl Est Cr Clr Drug Dosing 34.6 ml/min Est GFR ( Amer) 44.9 ml/min Est GFR (Non-Af Amer) 38.7 ml/min BUN/Creatinine Ratio 27.8 H (10-20) Glucose 129 H (70-99(Fasting)) mg/dl POC Glucose (other) 129 H (70-99) mg/dl Calcium 9.5 (8.6-10.3) mg/dl POC Ioniz Calcium Hector 1.16 (1.12-1.32) mmol/l Magnesium 2.2 (1.7-2.4) mg/dl Total Bilirubin 0.3 (0.2-1.0) mg/dl AST 15 (13-39) U/L ALT 16 (7-52) U/L Alkaline Phosphatase 111 H (34-104) U/L Total Creatine Kinase 72 (26-192) U/L Troponin I High Sens 194.9 H* (0-14) pg/ml B-Natriuretic Peptide 27 (0-100) pg/ml Total Protein 7.5 (6.0-8.3) gm/dl Albumin 4.3 (3.4-5.0) gm/dl Globulin 3.2 (2.5-4.0) gm/dl Albumin/Globulin Ratio 1.3 (0.9-2) Lipase 79 (11-82) U/L TSH 1.359 (0.300-4.500) uIu/ml 03/18/23 Range/Units 21:53 WBC (4.8-10.8) K/ul RBC (4.20-5.40) M/uL Hgb (12.0-16.0) g/dl POC Hgb (12.0-16.0) g/dl Hct (37.0-47.0) % POC Hct (37-47) % MCV (80.0-100.0) fL MCH (25.0-34.0) pg MCHC (32.0-36.0) g/dL RDW Std Deviation (36.4-46.3) fL RDW Coeff of Brian (11.5-14.5) % Plt Count (130-400) K/uL MPV (9.4-12.4) fL Immature Gran % (Auto) % Neut % (Auto) % Lymph % (Auto) % Pinal % (Auto) % Eos % (Auto) % Baso % (Auto) % Neut # (Auto) (1.40-6.50) K/uL Lymph # (Auto) (1.20-3.40) K/uL Pinal # (Auto) (0.11-0.59) K/uL Eos # (Auto) (0.00-0.50) K/uL Baso # (Auto) (0.00-0.20) K/uL Immature Gran # (Auto) (0.01-0.20) K/uL PT (9.0-12.0) Seconds INR (0.9-1.1) APTT (21-31) Seconds PTT Ratio Activ Coag Time Kaolin 228 H (94-140) SECONDS POC Sodium (135-144) mmol/L Sodium (136-145) mmol/L POC Potassium (3.3-5.0) mmol/L Potassium (3.5-5.1) mmol/L POC Chloride (101-112) mmol/L Chloride (98-107) mmol/L Carbon Dioxide (21-32) mmol/L POC Total CO2 (24-31) mmol/L Anion Gap (3-11) POC Anion Gap (16-25) mmol/L POC BUN (7-18) mg/dl BUN (6-23) mg/dl Creatinine (0.6-1.2) mg/dl POC Creatinine (0.6-1.3) mg/dl Est Cr Clr Drug Dosing ml/min Est GFR ( Amer) ml/min Est GFR (Non-Af Amer) ml/min BUN/Creatinine Ratio (10-20) Glucose (70-99(Fasting)) mg/dl POC Glucose (other) (70-99) mg/dl Calcium (8.6-10.3) mg/dl POC Ioniz Calcium Hector (1.12-1.32) mmol/l Magnesium (1.7-2.4) mg/dl Total Bilirubin (0.2-1.0) mg/dl AST (13-39) U/L ALT (7-52) U/L Alkaline Phosphatase (34-104) U/L Total Creatine Kinase (26-192) U/L Troponin I High Sens (0-14) pg/ml B-Natriuretic Peptide (0-100) pg/ml Total Protein (6.0-8.3) gm/dl Albumin (3.4-5.0) gm/dl Globulin (2.5-4.0) gm/dl Albumin/Globulin Ratio (0.9-2) Lipase (11-82) U/L TSH (0.300-4.500) uIu/ml MDM Narrative 2023: EKG conducted at 2009 by EMS was reviewed by me and shows sinus rhythm with a rate of 103. NM 160 QRS [address] elevation in leads II, III and aVF. Heart alert called 2034: The patient was evaluated in room B1. A complete history and physical exam was performed Cardiac monitoring: An order was placed for continuous cardiac monitoring. The monitor shows a rate of 90 with sinus rhythm interpreted by me 2045: Dr. Martinez at bedside. 2100: Patient to go off to [facility]. Impression & Plan STEMI (ST elevation myocardial infarction) Critical Care Time Critical Care Time: Yes Total Critical Care Time: 36 I have personally spent greater than 36 minutes of critical care time in the direct management of this patient. This includes bedside care, interpretation of diagnostic studies, and testing, discussion with consultants, patient, and family members, and other required patient management activities. This 36 minutes is in excess of all separately billable procedures. Discharge Plan Visit Data Chief Complaint: Heart Alert Stated Complaint: HEART ALERT ED Provider: Anthony Allison Discharge Problem: STEMI (ST elevation myocardial infarction) Patient Disposition: Admitted As Inpatient Discharge Instructions Interventions: ED Discharge Assessment Last Done: 03/18/23 21:08
[2023-03-18] MEDS ORDERED: fentaNYL citrate PF 100 MCG/2 ML VIAL ONE ×2 (20:38→20:39)
[2023-03-18] MEDS ORDERED: MIDAZOLAM HCL 1 MG/ML 2ML VIAL ONE ×2 (20:39→21:24)
[2023-03-18] MEDS ORDERED: niCARdipine HCL INJ 2.5 MG/ML 10 ML AMP ONE (20:39)
[2023-03-18] MEDS ORDERED: HEPARIN (PORCINE) 1000 UNIT/ML 10 ML (CATH LAB USE ONLY) ONE (20:39)
[2023-03-18] MEDS ORDERED: NITROGLYCERIN/D5W 100MCG/ML 20ML SYR ONE (20:40)
[2023-03-18 20:49] LABS: Basophils # (auto) 0.04 K/uL (0.00-0.20); Basophils % (auto) 0.7 %; Eosinophils # (auto) 0.46 K/uL (0.00-0.50); Hematocrit (blood only) 36.5 % (37.0-47.0); Hemoglobin 12.3 g/dl (12.0-16.0); Immature Granulocytes # (auto) 0.02 K/uL (0.01-0.20); Immature Granulocytes % (auto) 0.3 %; Lymphocytes # (auto) 1.38 K/uL (1.20-3.40); Lymphocytes % (auto) 23.9 %; Mean Corpuscular Hemoglobin 28.5 pg (25.0-34.0); Mean Corpuscular Hgb Conc 33.7 g/dL (32.0-36.0); Mean Corpuscular Volume 84.7 fL (80.0-100.0); Monocytes # (auto) 0.45 K/uL (0.11-0.59); Monocytes % (auto) 7.8 %; Neutrophils # (auto) 3.43 K/uL (1.40-6.50); Neutrophils % (auto) 59.3 %; Platelet Count 233 K/uL (130-400); RDW Coefficient of Variation 13.9 % (11.5-14.5); Red Blood Count 4.31 M/uL (4.20-5.40); White Blood Count 5.78 K/ul (4.8-10.8)
[2023-03-18 20:50] LABS: iSTAT Creatinine 1.6 mg/dl (0.6-1.3); iSTAT Hemoglobin 11.9 g/dl (12.0-16.0); iSTAT Ionized Calcium 1.16 mmol/l (1.12-1.32)
--- NOTE | 2023-03-18 20:55 | Pre Anesthesia Assessment ---
Date of Service March 18, 2023 Pre Sedation Assessment Vital Signs Temp Pulse Resp BP Pulse Ox O2 Del Method 03/18/23 20:40 97.9 F 98 H 18 161/88 H 98 Room Air 03/18/23 20:35 101 H Cardiovascular + regular rate Respiratory + respiratory effort normal Pre-Sedation Airway Assessment Smoking Status: Never smoker Hx Sleep Apnea: No Hx Difficult Intubation: No Short, Thick Neck: No Thyromental Distance: > or= 3.5 Finger Breadths Oral Cavity: + Dental Abnormalities and + WNL Mallampati Class: III ASA: ASA4 Procedure Planning Contraindications for Sedation: none Current Medications Reviewed: Yes Notes The planned sedation has been discussed with the patient. Informed Consent was obtained. I have identified the patient, determined the appropriateness of sedation and have assessed the patient immediately prior to the procedure. All medicine(s) and interventions are by my order.
[2023-03-18 21:01] LABS: Partial Thromboplastin Ratio 0.9; Partial Thromboplastin Time 25 Seconds (21-31); Prothrombin Time 10.7 Seconds (9.0-12.0)
[2023-03-18] MEDS ORDERED: TICAGRELOR 90 MG TAB ONE (21:01)
--- NOTE | 2023-03-18 21:02 | Cardiology Consultation ---
Date of Consultation March 18, 2023 Assessment & Plan (1) STEMI (ST elevation myocardial infarction): Presentation consistent with inferior STEMI and recommend proceeding with emergent cardiac catheterization and likely primary PCI. No apparent contraindications to procedure. Discussed risks, benefits, alternatives of procedure with patient and they are willing to proceed. Further recommendations pending findings of coronary angiography. History of Present Illness History of Present Illness 77-year-old woman here with acute chest pain and ECG concerning for acute [place]. Patient seen emergently in the ED after heart alert activated on arrival. No prior cardiac history. Cardiac risk factors include type 2 diabetes on insulin, hypertension and stage III CKD. Other medical issues include GERD, ROMAN on CPAP, spinal stenosis with neuropathy and depression. She resides at a personal care facility, [facility]. Non-smoker. Chest pain began approximately 6 PM while she was eating dinner, approximately 2.5 hours prior to arrival. Describes substernal chest pain with associated nausea Denies similar symptoms in the past. Given nitroglycerin, aspirin en route. Chest pain at time of arrival 06/23. Hemodynamically stable. EKGs showed sinus rhythm with old right bundle branch block and transient inferior ST elevations. Allergies Allergy/AdvReac Type Severity Reaction Status Date / Time latex Allergy Mild ON [facility] Verified 02/24/23 11:26 LIST-per patient- thinks rash niacin Allergy Mild ON Verified 02/24/23 11:[facility] "probably rash" simvastatin Allergy Unknown ON Verified 02/24/23 11:26 [facility] Home Medications Medication Instructions Recorded Confirmed Type fluorometholone 0.1 % eye 1 drp OPB QAM 11/26/17 02/24/23 History drops,suspension glucose 4 gram chewable tablet 1 tab PO UD HYPOGLYCEMIA 11/26/17 02/24/23 History omeprazole 20 mg capsule,delayed 20 mg PO QAM 11/26/17 02/24/23 History release polyethylene glycol 3350 17 gram 17 g PO QAM 11/26/17 02/24/23 History oral powder packet quetiapine 50 mg tablet 50 mg PO HS 11/26/17 02/24/23 History timolol 0.5 % eye drops 1 drp OPB QAM 11/26/17 02/24/23 History tolterodine 2 mg tablet 2 mg PO BID 11/26/17 02/24/23 History acetaminophen 325 mg tablet 650 mg PO Q6H PRN Fever Or Pain 06/12/18 02/24/23 History (Tylenol) citalopram 20 mg tablet (Celexa) 20 mg PO QAM 06/12/18 02/24/23 History diclofenac sodium 1 % topical gel 2 g topical QID PRN Pain 10/12/20 02/24/23 History insulin lispro 100 unit/mL 0 - 12 unit subcut UD 10/12/20 02/24/23 History subcutaneous pen (Humalog KwikPen (U-100) Insulin) aspirin 81 mg tablet,delayed 81 mg PO DAILY 03/27/21 02/24/23 History release (Adult Aspirin Regimen) menthol 0.44 %-zinc oxide 20.6 % 1 applic topical BID PRN skin 07/23/21 02/24/23 Rx topical ointment in packet irritation #504 grams (Calmoseptine) vit C,E-Tk-wuibs-lutein-zeaxan 1 cap PO BID 05/05/22 02/24/23 History [PreserVision AREDS-2] ketoconazole 2 % topical cream 1 applic topical BID #30 grams 11/24/22 02/24/23 Rx nystatin 100,000 unit/gram topical 1 applic topical .COMPLEX PRN 11/24/22 02/24/23 History cream gabapentin 100 mg capsule 100 mg PO TID 01/12/23 02/24/23 History gabapentin 800 mg tablet 800 mg PO TID 01/12/23 02/24/23 History lisinopril 40 mg tablet 40 mg PO DAILY #30 tabs 01/12/23 02/24/23 Rx pen needle, diabetic, safety 30 #100 ea 01/12/23 02/24/23 History gauge x 1/3" (Novofine Autocover) loperamide 2 mg capsule (Imodium 2 mg PO Q6H PRN loose stool #60 01/21/23 1 04/27/22 Rx A-D) caps terbinafine HCl 250 mg tablet 250 mg PO DAILY #14 tabs 01/21/23 02/24/23 Rx psyllium husk 0.4 gram capsule 0.4 g PO DAILY 02/03/23 02/24/23 History (Metamucil) methenamine hippurate 1 gram tablet 1 g PO Q12H #180 tabs 02/12/23 02/24/23 Rx insulin glargine 100 unit/mL (3 8 unit (0.08 mL) subcut DAILY #15 02/13/23 02/24/23 Rx mL) subcutaneous pen (Lantus mL Solostar U-100 Insulin) ergocalciferol (vitamin D2) 1,250 50,000 unit PO WEEKLY #12 caps 02/24/23 02/24/23 Rx mcg (50,000 unit) capsule spironolactone 50 mg tablet 50 mg PO BID #60 tabs 02/25/23 Rx lorazepam 0.5 mg tablet 0.5 mg PO DAILY PRN anxiety #30 03/04/23 Rx tabs dulaglutide 3 mg/0.5 mL 3 mg (0.5 mL) subcut ONCE #2 mL 03/17/23 Rx subcutaneous pen injector (Trulicity) Patient History Medical History Proteinuria Glaucoma History of recurrent UTI (urinary tract infection) Insomnia Per records Neuropathy per patient- hands and feet Depression Per records Hypertension Per records History of macular degeneration Chronic back pain GERD (gastroesophageal reflux disease) hx Diabetes mellitus, type 2 IDDM Sleep apnea cpap nightly with 3lpm of oygen Spinal stenosis of lumbar region Neurogenic claudication due to lumbar spinal stenosis History of nephrolithiasis Nasal bone fracture Cholecystitis, acute Surgical History Status post spinal surgery History of bilateral tubal ligation Hx of total knee arthroplasty bilateral S/P epidural steroid injection History of cholecystectomy History of colonoscopy History of cornea transplant bilateral History of cataract surgery bilateral History of appendectomy Family History Mother Breast cancer Aunt Colorectal cancer Diabetes Father Myocardial infarction Other No family history of adverse response to anesthesia No pertinent family history Denies family history of Ovarian cancer Prostate cancer Social History Smoking Status: Never smoker Tobacco Type: Cigarettes Second Hand Exposure: No; Do You Dip or Chew Tobacco: No; Hx Alcohol Use: No Hx Substance Use: No Preferred Language: Bengali Communication Ability: Effective Visual Impairment: No Limitations Hearing Ability: Normal 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 [employer]er Required: No Beliefs That Will Affect Care: None marital status: Current Living Situation: Personal Care Facility Current Living Situation Comment: Fer house at [facility] current occupational status: retired How many Children do You have: 2 Feels Safe at Home: Yes Childhood Exposure to Second-Hand Smoke: No Diet: regular caffeine: No during the past year weight has: remained stable Dental Care, Regularly: Yes Physical Activity Frequency: Does not Exercise Seatbelt Use: always Sunscreen Use: Yes Assistive Devices: Glasses and Walker Review of Systems Review of Systems: Not obtained in the setting of emergent situation Physical Exam Physical Exam: General: Uncomfortable, nauseated HEENT: Sclerae anicteric Lungs: Clear anteriorly Cardiac: Regular rate and rhythm, no murmurs. Vascular: 2+ radial Abdomen: Soft, nontender Extremities: Well perfused, no peripheral edema Neuro: Nonfocal Psych: Alert orient x3, normal affect and mood Results & Data Vital Signs (Past 12 Hours) Vital Signs Temp Pulse Resp BP Pulse Ox O2 Del Method 03/18/23 20:40 97.9 F 98 H 18 161/88 H 98 Room Air 03/18/23 20:35 101 H PG Care Time/CCT Total # of Minutes Spent Total Time Spent with Patient: Total time spent is greater than 50% in coordination of care (as documented) at patient's floor/unit and/or counseling patient: Coding Level of Care Code 79990 OFFICE CONSULT LVL Diagnoses STEMI (ST elevation myocardial infarction) I21.3
[2023-03-18 21:13] LABS: Albumin Globulin Ratio 1.3 (0.9-2); Albumin Level 4.3 gm/dl (3.4-5.0); BUN Creatinine Ratio 27.8 (10-20); Bilirubin,Total 0.3 mg/dl (0.2-1.0); Calcium 9.5 mg/dl (8.6-10.3); Creatinine Clr Calc Pharmacy 34.6 ml/min; Est GFR (African American) 44.9 ml/min; Est GFR (Non-African American) 38.7 ml/min; Globulin 3.2 gm/dl (2.5-4.0); Magnesium 2.2 mg/dl (1.7-2.4); Potassium 4.9 mmol/L (3.5-5.1); Total Protein 7.5 gm/dl (6.0-8.3)
[2023-03-18 21:29] LABS: Thyroid Stimulating Hormone 1.359 uIu/ml (0.300-4.500); Troponin I High Sensitivity 194.9 pg/ml (0-14)
[2023-03-18] MEDS ORDERED: ONDANSETRON INJ 2 MG/ML 2 ML VIAL ONE ×2 (22:00→23:58)
[2023-03-18] MEDS ORDERED: ONDANSETRON INJ 2 MG/ML 2 ML VIAL IV PRN (22:02)
[2023-03-18] MEDS ORDERED: ACETAMINOPHEN 325 MG TAB PO PRN (22:02)
[2023-03-18] MEDS ORDERED: PANTOprazole 40 MG TAB PO STA (22:09)
--- NOTE | 2023-03-18 22:13 | Post Anesthesia Assessment ---
Date of Service March 18, 2023 Post Sedation Assessment Vital Signs Temp Pulse Resp BP Pulse Ox O2 Del Method O2 Flow Rate 03/18/23 21:08 101 H 18 161/88 H 97 Room Air 03/18/23 20:50 102 H 23 97 03/18/23 20:50 161/88 H 03/18/23 20:45 97 H 17 97 03/18/23 20:45 175/87 H 03/18/23 20:45 98 H 18 98 Room Air 03/18/23 20:40 98 H 17 96 03/18/23 20:40 194/99 H 03/18/23 20:40 97.9 F 98 H 18 161/88 H 98 Room Air 03/18/23 20:38 193/98 H 03/18/23 20:38 98 H 15 97 03/18/23 20:35 101 H 33 H 95 03/18/23 20:35 101 H 03/18/23 20:35 97 Room Air 0 Recovery Score Activity: Moves 4 extremities Respiration: Deep Breath/Cough Circulation: +/-20% PreAnes Value Consciousness: Fully Awake Oxygen Saturation: O2 needed for >90% Discharge Sedation Level of Care: Fast Track Phase II Post Sedation Plan On clinical assessment, the patient appears to have tolerated the sedation without complications. Patient is recovering as anticipated. Patient will continue to be monitored by nursing and may be discharged when sedation discharge criteria are met per below protocol. Upon Completions of procedure up to 15 minutes continue every 5 minute vital signs and the P.A.R. score; then discharge to a Phase I or Fast Track to Phase II per the following guidelines: * Discharge Patient to appropriate Phase II area if PAR is 8 or greater or return to pre- procedure baseline. The post - procedure orders will be as directed. * If PAR score is less than 8 or not return to pre-procedure baseline then patient will follow Phase I monitoring till PAR is reached for Phase II. The Phase I may be done in procedure room or may call to secure a Phase I area. * If naloxone or flumazenil are used for reversal, hold in Phase I for continued monitoring from when last reversal dose was given for a minimum of 60 minutes or longer pending the nurse and/or physician discretion of patient condition before discharge to Phase II. Please call the Sedation Physician to re-evaluate and complete post-note for discharge to Phase II area. Do NOT discharge from procedure sedation or Phase 1 until post- sedation carroll luation note is complete by procedure /sedation MD Sedation Discharge Instructions to be given to the patient at discharge to home.
--- NOTE | 2023-03-18 22:15 | Cardiac Catheterization ---
[facility] Data: Janitor Helper Cardiac Status Clinical evaluation leading to the procedure CAD Presenation: STEMI Anginal Classification: CCS IV Diagnostic Physicians Name: Arnie Martinez MD Closure Device Recommendations: PCI without planned CABG Cardiac Cath Procedure Full Procedure Date March 18, 2023 Pre-Procedure Diagnosis Pre-Procedure Diagnosis: STEMI AUC Score AUC Score: 9 Post-Procedure Diagnosis Post-Procedure Diagnosis: Severe CAD, Successful PCI and Elevated Intracardiac Pressures Procedure(s) Performed Procedure(s) Performed: Coronary Angiography, Left Heart Cath and Drug Eluting Stent Supervisor [employer] Arnie Martinez MD Non Licensed Nuclear Equipment Operator(s) Bertrand Estimated Blood Loss Estimated Blood Loss: 10 Medication(s) Medication(s): Fentanyl, Heparin, Lidocaine 1%, Nicardipine, Nitroglycerin and Versed Summary of Findings Indication: STEMI/Heart Alert Access: 6 Fr right radial artery Catheters: [place], EBU 3.5 guide Findings: LM -normal caliber, no significant disease LAD -medium caliber proximal luminal irregularities, 40% focal stenosis in mid segment just after takeoff of D1. Distal 80% disease before remainder of vessel wraps around apex. Medium D1 without significant disease. Circumflex -large caliber, angulated takeoff, 20 to 30% mid segment disease, 99% distal stenosis after large OM 2 with YOVANA II flow continuing into left PLB RCA -dominant, medium caliber, 20 to 30% proximal disease, tortuous mid segment with luminal irregularities. Distal vessel without significant disease. Small RPDA without disease. LVEDP -26 -- PCI -- Antithrombotic therapy: Heparin, ticagrelor Procedure: Left main cannulated with EBU 3.5 guide Branch Operations Manager 50 wire passed across lesion into distal vessel Distal circumflex lesion predilated with 2.0 compliant balloon Unable to pass MAUREEN around angulated takeoff of circumflex Additional whisper wire navigated into circumflex across distal stenosis into left PLB Distal circumflex predilated with 2.5 balloon With the aid of a telescope support catheter dilated lesion stented with 2.25 x 22 mm [place] MAUREEN Stent post-dilated with 2.5 noncompliant balloon IC vasodilators administered for spasm Post procedure YOVANA 3 flow, stent well expanded with minimal residual stenosis and no apparent cardiac complications. Arterial Closure: TR band Summary: 1. Inferior STEMI/subtotally occluded distal circumflex 2. Severe non-culprit coronary artery disease -80% small distal LAD 3. Elevated intracardiac filling pressure 4. Successful PCI of distal circumflex with single drug-eluting stent (2.25 x 22 mm [place]; postdilated with 2.5 NC) Recommendations: Admit to ICU for continued monitoring Loaded with ticagrelor 180 mg in Janitor Helper Continue dual-antiplatelet therapy for at least 1 year. Trend troponins until peak, Check Echo Uptitrate beta-delmar and home ROSELINE, MRA as BP allows High-dose statin Consult cardiac Rehab Plan to medically manage small distal LAD disease. If refractory exertional symptoms as an outpatient PCI of distal LAD could be considered. Hemodynamics Rest Ao:: /136 Final Ao: 95/67/119 LV: 220/26 Recommendations Recommendations: PCI without planned CABG Specimens Specimens: None Radiation Exposure (mGy) 3468 Contrast (mls) 205 Anesthesia Moderate 4163-7490 Procedural Complication(s) None Disposition PCU I attest to the content of the Intraoperative Record and any orders documented therein. Any exceptions are noted below. [facility] Card Cath Procedure Codes Cardiac Catheterization Procedure 1: Cardiovascular Cath Procedures: 58095 Coronaries and LHC (+/-LV) Moderate Sedation Procedure 1: Sedation/Anesthesia: 15245 Mod Sedation by the same physician;Init15 Min Child Age 5 & Up Procedure 2: Sedation/Anesthesia: 37641 Mod Sedation by the same physician; Ea [id number] Minutes Stenting Procedure 1: Cardiovascular Stent Procedures: 52084 Perc transluminal revascularization of acute sub/total occl, aMI PG Care Time/CCT Total # of Minutes Spent Total Time Spent with Patient: Total time spent is greater than 50% in coordination of care (as documented) at patient's floor/unit and/or counseling patient:
--- NOTE | 2023-03-18 22:21 | XRay Report ---
SINGLE VIEW CHEST CLINICAL HISTORY: Atypical chest pain. FINDINGS: An AP, portable, upright chest radiograph is compared to study dated 11/26/2017. The examina tion is degraded by portable technique and apical lordotic positioning. The heart is enlarged noting atherosclerotic calcification of the thoracic aorta. There is pulmonary vascular congestion. There is bibasilar scarring/atelectasis. No airspace consolidation or large pleural effusion is identified. N o pneumothorax is seen. The skeletal structures are osteopenic. The bony thorax is grossly intact. IMPRESSION: Cardiomegaly with pulmonary vascular congestion. ACT 112: Negative or not required by law. Electronically signed by: Jose Fox M.D. 03/18/2023 10:19 PM
--- NOTE | 2023-03-18 23:00 | History & Physical Report ---
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 Martinez: Metoprolol tartrate 25 mg p.o. twice daily, aspirin 81 mg every morning, Brilinta 90 mg p.o. twice daily, atorvastatin 40 mg every morning, lisinopril 5 mg p.o. twice daily and spironolactone 25 mg p.o. every morning Diabetes mellitus- Continue Lantus 8 units subcu every morning Placed on Accu-Cheks with NovoLog SSI Check hemoglobin A1c Peripheral neuropathy- Continue gabapentin 900 mg p.o. 3 times daily Acute kidney injury superimposed on CKD- Creatinine 1.33, with base 1.03 Repeat laboratories in a.m. Admission and Anticipated Discharge Date Admission Date: March 18, 2023 History of Present Illness Chief Complaint: Patient presented to the emergency department with substernal and left-sided chest pain radiating to her left upper extremity, neck, jaw and teeth. She was treated as a heart alert, was assessed by interventional cardiology Dr. Arnie Martinez while in ED, and was emergently taken to cardiac [employer] Primary Care Provider: Levon Adam DO The patient is a 77-year-old female with a past medical history including CKD stage III AA, vitamin D deficiency, diabetic nephropathy, diabetes mellitus type 2, small bowel enteritis, lumbar spinal stenosis, hypertension, statin myopathy, dyslipidemia and peripheral neuropathy. She presented to the emergency department with above symptoms, and underwent assessment as a heart alert. She was seen by interventional cardiology Dr. Arnie Martinez, was taken directly from the ED to the cardiac catheterization lab, where she underwent single MAUREEN for a 99% circumflex lesion. She was then seen postprocedure in the ICU, resting comfortably, without chest pain or shortness of breath. Allergies Allergy/AdvReac Type Severity Reaction Status Date / Time latex Allergy Mild ON [place] Verified 02/24/23 11:26 LIST-per patient- thinks rash niacin Allergy Mild ON Verified 02/24/23 11:26 [facility] LIST- per patient "probably rash" simvastatin Allergy Unknown ON Verified 02/24/23 11:26 [facility] LIST- unsure Home Medications Medication Instructions Recorded Confirmed Type fluorometholone 0.1 % eye 1 drp OPB QAM 11/26/17 02/24/23 History drops,suspension glucose 4 gram chewable tablet 1 tab PO UD HYPOGLYCEMIA 11/26/17 02/24/23 History omeprazole 20 mg capsule,delayed 20 mg PO QAM 11/26/17 02/24/23 History release polyethylene glycol 3350 17 gram 17 g PO QAM 11/26/17 02/24/23 History oral powder packet quetiapine 50 mg tablet 50 mg PO HS 11/26/17 02/24/23 History timolol 0.5 % eye drops 1 drp OPB QAM 11/26/17 02/24/23 History tolterodine 2 mg tablet 2 mg PO BID 11/26/17 02/24/23 History acetaminophen 325 mg tablet 650 mg PO Q6H PRN Fever Or Pain 06/12/18 02/24/23 History (Tylenol) citalopram 20 mg tablet (Celexa) 20 mg PO QAM 06/12/18 02/24/23 History diclofenac sodium 1 % topical gel 2 g topical QID PRN Pain 10/12/20 02/24/23 History insulin lispro 100 unit/mL 0 - 12 unit subcut UD 10/12/20 02/24/23 History subcutaneous pen (Humalog KwikPen (U-100) Insulin) aspirin 81 mg tablet,delayed 81 mg PO DAILY 03/27/21 02/24/23 History release (Adult Aspirin Regimen) menthol 0.44 %-zinc oxide 20.6 % 1 applic topical BID PRN skin 07/23/21 02/24/23 Rx topical ointment in packet irritation #504 grams (Calmoseptine) vit C,Y-Xv-hszfm-lutein-zeaxan 1 cap PO BID 05/05/22 02/24/23 History [PreserVision AREDS-2] ketoconazole 2 % topical cream 1 applic topical BID #30 grams 11/24/22 02/24/23 Rx nystatin 100,000 unit/gram topical 1 applic topical .COMPLEX PRN 11/24/22 02/24/23 History cream gabapentin 100 mg capsule 100 mg PO TID 01/12/23 02/24/23 History gabapentin 800 mg tablet 800 mg PO TID 01/12/23 02/24/23 History lisinopril 40 mg tablet 40 mg PO DAILY #30 tabs 01/12/23 02/24/23 Rx pen needle, diabetic, safety 30 #100 ea 01/12/23 02/24/23 History gauge x 1/3" (Novofine Autocover) loperamide 2 mg capsule (Imodium 2 mg PO Q6H PRN loose stool #60 01/21/23 02/24/23 Rx A-D) caps terbinafine HCl 250 mg tablet 250 mg PO DAILY #14 tabs 01/21/23 02/24/23 Rx psyllium husk 0.4 gram capsule 0.4 g PO DAILY 02/03/23 02/24/23 History (Metamucil) methenamine hippurate 1 gram tablet 1 g PO Q12H #180 tabs 02/12/23 02/24/23 Rx insulin glargine 100 unit/mL (3 8 unit (0.08 mL) subcut DAILY #15 02/13/23 02/24/23 Rx mL) subcutaneous pen (Lantus mL Solostar U-100 Insulin) ergocalciferol (vitamin D2) 1,250 50,000 unit PO WEEKLY #12 caps 02/24/23 02/24/23 Rx mcg (50,000 unit) capsule spironolactone 50 mg tablet 50 mg PO BID #60 tabs 02/25/23 Rx lorazepam 0.5 mg tablet 0.5 mg PO DAILY PRN anxiety #30 03/04/23 Rx tabs dulaglutide 3 mg/0.5 mL 3 mg (0.5 mL) subcut ONCE #2 mL 03/17/23 Rx subcutaneous pen injector (Trulicity) Past Med/Surg History Medical History Proteinuria Glaucoma History of recurrent UTI (urinary tract infection) Insomnia Per records Neuropathy per patient- hands and feet Depression Per records Hypertension Per records History of macular degeneration Chronic back pain GERD (gastroesophageal reflux disease) hx Diabetes mellitus, type 2 IDDM Sleep apnea cpap nightly with 3lpm of oygen Spinal stenosis of lumbar region Neurogenic claudication due to lumbar spinal stenosis History of nephrolithiasis Nasal bone fracture Cholecystitis, acute Surgical History Status post spinal surgery History of bilateral tubal ligation Hx of total knee arthroplasty bilateral S/P epidural steroid injection History of cholecystectomy History of colonoscopy History of cornea transplant bilateral History of cataract surgery bilateral History of appendectomy Family History Mother Breast cancer Aunt Colorectal cancer Diabetes Father Myocardial infarction Other No family history of adverse response to anesthesia No pertinent family history Denies family history of Ovarian cancer Prostate cancer Social History Smoking Status: Former smoker Tobacco Type: Cigarettes Second Hand Exposure: No; Do You Dip or Chew Tobacco: No; Hx Alcohol Use: No Hx Substance Use: No Preferred Language: Tajik Communication Ability: Effective Visual Impairment: No Limitations Hearing Ability: Normal Development 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 Required: No Beliefs That Will Affect Care: None marital status: Current Living Situation: Personal Care Facility Current Living Situation Comment: [facility] current occupational status: retired How many Children do You have: 2 Feels Safe at Home: Yes Childhood Exposure to Second-Hand Smoke: No Diet: regular caffeine: No during the past year weight has: remained stable Dental Care, Regularly: Yes Physical Activity Frequency: Does not Exercise Seatbelt Use: always Sunscreen Use: Yes Assistive Devices: Denture - Upper, Glasses and Walker Review of Systems Review of Systems: Postprocedure, the patient denies chest pain, palpitations, shortness of breath, dyspnea on exertion, cough, lower extremity swelling, sore throat, fevers, chills, sweats, nausea, vomiting, diarrhea , constipation, abdominal pain, pelvic pain, blood in urine or stool, dysuria, urinary frequency or urgency, headache, memory loss, loss of consciousness, rash, abnormal bruising or bleeding, focal weakness, numbness or tingling in arms or legs, generalized arthralgias or myalgias, back or neck pain, or night sweats. The review of systems is otherwise negative other than for that already noted above, and at least 10 systems have been reviewed. Physical Exam Physical Exam: The patient is mildly sedated, but able to answer questions, well developed and well nourished, normocephalic and atraumatic, lying in bed and in no acute distress. HEENT--PERRL, EOMI, mucous membranes and oropharynx normal. Neck--supple. No JVD. No bruits. Thyroid normal, trachea midline, no adenopathy. Heart--normal S1 and S2. No murmurs, rubs or gallops. Lungs--clear bilaterally, no respiratory distress, no accessory muscle use. Abdomen--normal bowel sounds and soft. Nontender. Nondistended, no hernias or masses, no organomegaly. Extremities--no cyanosis or clubbing. No edema. Dermatologic--normal skin turgor, normal color, no abnormal lymph nodes, no rash. Neurologic--cranial nerves II through XII grossly intact. Rheumatologic--normal range of motion. Psychiatric--normal affect, mildly sedated Results & Data Results & Data Vital Signs (Past 12 Hours) Vital Signs Temp Pulse Pulse Resp BP BP Pulse Ox 03/18/23 22:45 95 H 19 94 03/18/23 22:33 36.6 C 95 H 18 133/105 H 95 03/18/23 22:30 95 H 15 96 03/18/23 22:28 162/78 H 03/18/23 22:18 36.6 C 95 H 18 162/78 H 94 03/18/23 22:07 03/18/23 22:03 36.6 C 03/18/23 21:08 101 H 18 161/88 H 97 03/18/23 20:50 102 H 23 97 03/18/23 20:50 161/88 H 03/18/23 20:45 97 H 17 97 03/18/23 20:45 175/87 H 03/18/23 20:45 98 H 18 98 03/18/23 20:40 98 H 17 96 03/18/23 20:40 194/99 H 03/18/23 20:40 36.6 C 98 H 18 161/88 H 98 03/18/23 20:38 193/98 H 03/18/23 20:38 98 H 15 97 03/18/23 20:35 101 H 33 H 95 03/18/23 20:35 101 H 03/18/23 20:35 97 Pulse Ox O2 Del Method O2 Del Method O2 Flow Rate O2 Flow Rate 03/18/23 22:45 03/18/23 22:33 Nasal Cannula 2 03/18/23 22:30 03/18/23 22:28 03/18/23 22:18 Nasal Cannula 2 03/18/23 22:07 94 Nasal Cannula 2 03/18/23 22:03 03/18/23 21:08 Room Air 03/18/23 20:50 03/18/23 20:50 03/18/23 20:45 03/18/23 20:45 03/18/23 20:45 Room Air 03/18/23 20:40 03/18/23 20:40 03/18/23 20:40 Room Air 03/18/23 20:38 03/18/23 20:38 03/18/23 20:35 03/18/23 20:35 03/18/23 20:35 Room Air 0 Laboratory Results Laboratory Results WBC 6.36 K/ul (4.8-10.8) 03/19/23 03:57 RBC 4.11 M/uL (4.20-5.40) L 03/19/23 03:57 Hgb 11.5 g/dl (12.0-16.0) L 03/19/23 03:57 POC Hgb 11.9 g/dl (12.0-16.0) L 03/18/23 20:37 Hct 35.1 % (37.0-47.0) L 03/19/23 03:57 POC Hct 35 % (37-47) L 03/18/23 20:37 MCV 85.4 fL (80.0-100.0) 03/19/23 03:57 MCH 28.0 pg (25.0-34.0) 03/19/23 03:57 MCHC 32.8 g/dL (32.0-36.0) 03/19/23 03:57 RDW Std Deviation 43.6 fL (36.4-46.3) 03/19/23 03:57 RDW Coeff of Brian 13.9 % (11.5-14.5) 03/19/23 03:57 Plt Count 203 K/uL (130-400) 03/19/23 03:57 MPV 9.1 fL (9.4-12.4) L 03/19/23 03:57 Immature Gran % (Auto) 0.5 % 03/19/23 03:57 Neut % (Auto) 56.7 % 03/19/23 03:57 Lymph % (Auto) 25.2 % 03/19/23 03:57 [place] % (Auto) 9.9 % 03/19/23 03:57 Eos % (Auto) 7.2 % 03/19/23 03:57 Baso % (Auto) 0.5 % 03/19/23 03:57 Neut # (Auto) 3.61 K/uL (1.40-6.50) 03/19/23 03:57 Lymph # (Auto) 1.60 K/uL (1.20-3.40) 03/19/23 03:57 [place] # (Auto) 0.63 K/uL (0.11-0.59) H 03/19/23 03:57 Eos # (Auto) 0.46 K/uL (0.00-0.50) 03/19/23 03:57 Baso # (Auto) 0.03 K/uL (0.00-0.20) 03/19/23 03:57 Immature Gran # (Auto) 0.03 K/uL (0.01-0.20) 03/19/23 03:57 PT 10.7 Seconds (9.0-12.0) 03/18/23 20:25 INR 1.0 (0.9-1.1) 03/18/23 20:25 APTT 25 Seconds (21-31) 03/18/23 20:25 PTT Ratio 0.9 03/18/23 20:25 Activ Coag Time Kaolin 228 SECONDS (94-140) H 03/18/23 21:53 POC Sodium 133 mmol/L (135-144) L 03/18/23 20:37 Sodium 131 mmol/L (136-145) L 03/18/23 20:25 POC Potassium 5.0 mmol/L (3.3-5.0) 03/18/23 20:37 Potassium 4.9 mmol/L (3.5-5.1) 03/18/23 20:25 POC Chloride 105 mmol/L (101-112) 03/18/23 20:37 Chloride 104 mmol/L (98-107) 03/18/23 20:25 Carbon Dioxide 19 mmol/L (21-32) L 03/18/23 20:25 POC Total CO2 19 mmol/L (24-31) L 03/18/23 20:37 Anion Gap 8 (3-11) 03/18/23 20:25 POC Anion Gap 15.0 mmol/L (16-25) L 03/18/23 20:37 POC BUN 35 mg/dl (7-18) H 03/18/23 20:37 BUN 37 mg/dl (6-23) H 03/18/23 20:25 Creatinine 1.33 mg/dl (0.6-1.2) H 03/18/23 20:25 POC Creatinine 1.6 mg/dl (0.6-1.3) H 03/18/23 20:37 Est Cr Clr Drug Dosing 34.6 ml/min 03/18/23 20:25 Est GFR ( Amer) 44.9 ml/min 03/18/23 20:25 Est GFR (Non-Af Amer) 38.7 ml/min 03/18/23 20:25 BUN/Creatinine Ratio 27.8 (10-20) H 03/18/23 20:25 Glucose 129 mg/dl (70-99(Fasting)) H 03/18/23 20:25 POC Glucose 137 mg/dl (70-99) H 03/19/23 03:15 POC Glucose (other) 129 mg/dl (70-99) H 03/18/23 20:37 Calcium 9.5 mg/dl (8.6-10.3) 03/18/23 20:25 POC Ioniz Calcium Hector 1.16 mmol/l (1.12-1.32) 03/18/23 20:37 Magnesium 2.2 mg/dl (1.7-2.4) 03/18/23 20:25 Total Bilirubin 0.3 mg/dl (0.2-1.0) 03/18/23 20:25 AST 15 U/L (13-39) 03/18/23 20:25 ALT 16 U/L (7-52) 03/18/23 20:25 Alkaline Phosphatase 111 U/L (34-104) H 03/18/23 20:25 Total Creatine Kinase 72 U/L (26-192) 03/18/23 20:25 Troponin I High Sens 854.2 pg/ml (0-14) H* D 03/18/23 22:52 B-Natriuretic Peptide 27 pg/ml (0-100) 03/18/23 20:25 Total Protein 7.5 gm/dl (6.0-8.3) 03/18/23 20:25 Albumin 4.3 gm/dl (3.4-5.0) 03/18/23 20:25 Globulin 3.2 gm/dl (2.5-4.0) 03/18/23 20:25 Albumin/Globulin Ratio 1.3 (0.9-2) 03/18/23 20:25 Lipase 79 U/L (11-82) 03/18/23 20:25 TSH 1.359 uIu/ml (0.300-4.500) 03/18/23 20:25 Nasal Screen MRSA (PCR) Negative (Negative) 03/18/23 Unknown Impressions Chest X-Ray 03/18/23 20:28 SINGLE VIEW CHEST CLINICAL HISTORY: Atypical chest pain. FINDINGS: An AP, portable, upright chest radiograph is compared to study dated 11/26/2017. The examination is degraded by portable technique and apical lordotic positioning. The heart is enlarged noting atherosclerotic calcification of the thoracic aorta. There is pulmonary vascular congestion. There is bibasilar scarring/atelectasis. No airspace consolidation or large pleural effusion is identified. No pneumothorax is seen. The skeletal structures are osteopenic. The bony thorax is grossly intact. IMPRESSION: Cardiomegaly with pulmonary vascular congestion. ACT 112: Negative or not required by law. Electronically signed by: Jose Fox M.D. 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
[2023-03-18] MEDS ORDERED: GABAPENTIN 300 MG CAP PO STA (23:02)
[2023-03-18] MEDS ORDERED: CARBOHYDRATES FOR HYPOGLYCEMIA PO PRN (23:04)
[2023-03-18] MEDS ORDERED: GLUCAGON FOR INJ 1 MG VIAL SQ PRN (23:04)
[2023-03-18] MEDS ORDERED: GLUCOSE 10 TAB/TUBE PO PRN (23:04)
[2023-03-18] MEDS ORDERED: GLUCOSE 40% GEL 15 GM TUBE PO PRN (23:04)
[2023-03-18] MEDS ORDERED: PHARMACY GLYCEMIC MGMT CONSULT PRN (23:04)
[2023-03-18] MEDS ORDERED: DEXTROSE 50% 50 ML SYRINGE IV PRN (23:04)
--- NOTE | 2023-03-18 23:04 | Critical Care Consultation ---
Date of Consultation March 18, 2023 Assessment & Plan (1) STEMI (ST elevation myocardial infarction): Impression: 77-year-old female presents to the ICU following inferior STEMI, s/p successful PCI with MAUREEN x 1 to the distal circumflex Neuro - [facility] ICU: Negative Neuropathycontinue gabapentin Depressioncontinue Seroquel Cardiac - STEMIs/p PCI with MAUREEN x 1 distal circumflex. -Follow cardiology recommendations -Follow-up TTE -Trend troponin to peak -ACEI, BB, statin, ASA, Brilinta -Monitor in ICU Respiratory - No history of pulmonary disease. Currently maintaining oxygen saturations on 2 L nasal cannula. Wean as tolerated. Consider diuresis if this does not improve. Continuous monitoring pulse ox GI - Heart healthy diet RENAL/LYTES - Creatinine within normal limits. Monitor routine BMPs and replete electrolytes as indicated - Strict I's and O's ENDO - DM type IIhemoglobin A1c pending. Basal bolus and sliding scale. ICU hyperglycemic protocol HEME - H&H stable, monitoring routine CBC ID - No indication for infectious process at this LINES/IV ACCESS - Peripheral IVs DVT PROPHYLAXIS - SCDs Thank you for allowing us to participate in the care of this patient. Please refer to my attending physician's documentation for any further recommendations. (2) Diabetic nephropathy associated with type 2 diabetes mellitus: (3) Chronic kidney disease, stage 3a: (4) Hypertension: (5) Diabetes mellitus type 2 in obese: History of Present Illness Attending Physician: Giovanni Angela MD History of Present Illness Patient 77-year-old female who presented from [facility] where she is a resident with complaints of chest pain which started around 6 PM, with associated radiation to the left arm. Patient has past medical history of DM type II, HTN, CKD, ROMAN (CPAP at bedtime), GERD, depression. Patient found to have inferior ST elevation on her EKG on arrival to the ER. Heart alert was initiated and patient was taken emergently to the [facility] where she was found to have occluded distal circumflex and underwent successful PCI with single MAUREEN. Patient now presents to the ICU post catheterization. She is hemodynamically stable and alert and oriented, without acute distress. Patient still reports mild intermittent chest pain, much improved from earlier this evening and no longer having nausea or left arm pain. She denies headache, dizziness, syncopal events, changes in vision, cough or congestion, fevers, shortness of breath, abdominal pain, vomiting or diarrhea, swelling hands or feet, or changes in ga it. Patient to remain in ICU for further management at this time. Allergies Allergy/AdvReac Type Severity Reaction Status Date / Time latex Allergy Mild ON [facility] Verified 02/24/23 11:26 LIST-per patient- thinks rash niacin Allergy Mild ON Verified 02/24/23 11:26 [facility] LIST- per patient "probably rash" simvastatin Allergy Unknown ON Verified 02/24/23 11:26 [facility] LIST- unsure Home Medications Medication Instructions Recorded Confirmed Type fluorometholone 0.1 % eye 1 drp OPB QAM 11/26/17 02/24/23 History drops,suspension glucose 4 gram chewable tablet 1 tab PO UD HYPOGLYCEMIA 11/26/17 02/24/23 History omeprazole 20 mg capsule,delayed 20 mg PO QAM 11/26/17 02/24/23 History release polyethylene glycol 3350 17 gram 17 g PO QAM 11/26/17 02/24/23 History oral powder packet quetiapine 50 mg tablet 50 mg PO HS 11/26/17 02/24/23 History timolol 0.5 % eye drops 1 drp OPB QAM 11/26/17 02/24/23 History tolterodine 2 mg tablet 2 mg PO BID 11/26/17 02/24/23 History acetaminophen 325 mg tablet 650 mg PO Q6H PRN Fever Or Pain 06/12/18 02/24/23 History (Tylenol) citalopram 20 mg tablet (Celexa) 20 mg PO QAM 06/12/18 02/24/23 History diclofenac sodium 1 % topical gel 2 g topical QID PRN Pain 10/12/20 02/24/23 History insulin lispro 100 unit/mL 0 - 12 unit subcut UD 10/12/20 02/24/23 History subcutaneous pen (Humalog KwikPen (U-100) Insulin) aspirin 81 mg tablet,delayed 81 mg PO DAILY 03/27/21 02/24/23 History release (Adult Aspirin Regimen) menthol 0.44 %-zinc oxide 20.6 % 1 applic topical BID PRN skin 07/23/21 02/24/23 Rx topical ointment in packet irritation #504 grams (Calmoseptine) vit C,P-Md-upyls-lutein-zeaxan 1 cap PO BID 05/05/22 02/24/23 History [PreserVision AREDS-2] ketoconazole 2 % topical cream 1 applic topical BID #30 grams 11/24/22 02/24/23 Rx nystatin 100,000 unit/gram topical 1 applic topical .COMPLEX PRN 11/24/22 02/24/23 History cream gabapentin 100 mg capsule 100 mg PO TID 01/12/23 02/24/23 History gabapentin 800 mg tablet 800 mg PO TID 01/12/23 02/24/23 History lisinopril 40 mg tablet 40 mg PO DAILY #30 tabs 01/12/23 02/24/23 Rx pen needle, diabetic, safety 30 #100 ea 01/12/23 02/24/23 History gauge x 1/3" (Novofine Autocover) loperamide 2 mg capsule (Imodium 2 mg PO Q6H PRN loose stool #60 01/21/23 02/24/23 Rx A-D) caps terbinafine HCl 250 mg tablet 250 mg PO DAILY #14 tabs 01/21/23 02/24/23 Rx psyllium husk 0.4 gram capsule 0.4 g PO DAILY 02/03/23 02/24/23 History (Metamucil) methenamine hippurate 1 gram tablet 1 g PO Q12H #180 tabs 02/12/23 02/24/23 Rx insulin glargine 100 unit/mL (3 8 unit (0.08 mL) subcut DAILY #15 02/13/23 02/24/23 Rx mL) subcutaneous pen (Lantus mL Solostar U-100 Insulin) ergocalciferol (vitamin D2) 1,250 50,000 unit PO WEEKLY #12 caps 02/24/23 02/24/23 Rx mcg (50,000 unit) capsule spironolactone 50 mg tablet 50 mg PO BID #60 tabs 02/25/23 Rx lorazepam 0.5 mg tablet 0.5 mg PO DAILY PRN anxiety #30 03/04/23 Rx tabs dulaglutide 3 mg/0.5 mL 3 mg (0.5 mL) subcut ONCE #2 mL 03/17/23 Rx subcutaneous pen injector (Trulicity) Patient History Medical History Proteinuria Glaucoma History of recurrent UTI (urinary tract infection) Insomnia Per records Neuropathy per patient- hands and feet Depression Per records Hypertension Per records History of macular degeneration Chronic back pain GERD (gastroesophageal reflux disease) hx Diabetes mellitus, type 2 IDDM Sleep apnea cpap nightly with 3lpm of oygen Spinal stenosis of lumbar region Neurogenic claudication due to lumbar spinal stenosis History of nephrolithiasis Nasal bone fracture Cholecystitis, acute Surgical History Status post spinal surgery History of bilateral tubal ligation Hx of total knee arthroplasty bilateral S/P epidural steroid injection History of cholecystectomy History of colonoscopy History of cornea transplant bilateral History of cataract surgery bilateral History of appendectomy Family History Mother Breast cancer Aunt Colorectal cancer Diabetes Father Myocardial infarction Other No family history of adverse response to anesthesia No pertinent family history Denies family history of Ovarian cancer Prostate cancer Social History Smoking Status: Former smoker Tobacco Type: Cigarettes Second Hand Exposure: No; Do You Dip or Chew Tobacco: No; Hx Alcohol Use: No Hx Substance Use: No Preferred Language: Kyrgyz Communication Ability: Effective Visual Impairment: No Limitations Hearing Ability: Normal 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 Beliefs That Will Affect Care: None marital status: Current Living Situation: Personal Care Facility Current Living Situation Comment: [facility] current occupational status: retired How many Children do You have: 2 Feels Safe at Home: Yes Childhood Exposure to Second-Hand Smoke: No Diet: regular caffeine: No during the past year weight has: remained stable Dental Care, Regularly: Yes Physical Activity Frequency: Does not Exercise Seatbelt Use: always Sunscreen Use: Yes Assistive Devices: Denture - Upper, Glasses and Walker Review of Systems Review of Systems: All systems reviewed & are unremarkable except as noted in HPI & below Physical Exam 2 Constitutional: cooperative and comfortable Eyes: PERRL, conjunctivae normal, anicteric sclerae ENMT: external ear and nose normal, oropharynx normal Neck: trachea midline, no thyromegaly Respiratory: normal respiratory effort, lungs clear to auscultation Cardiovascular: RRR, no murmur, no edema Heart Sounds: normal S1 and normal S2; no murmur Extremities: no edema Gastrointestinal (Abdomen): normal bowel sounds, soft, nontender, no hepatosplenomegaly Musculoskeletal: no cyanosis or clubbing, extremities motor strength 5/5 Skin: no rashes, warm and dry Neurologic: PERRL, EOMI, accommodation nl, no face palsy, no dysarthria Psychiatric: A+Ox3, euthymic affect Results & Data Results & Data Vital Signs (Past 12 Hours) Vital Signs Temp Pulse Pulse Resp BP BP Pulse Ox 03/18/23 22:45 95 H 19 94 03/18/23 22:33 36.6 C 95 H 18 133/105 H 95 03/18/23 22:30 95 H 15 96 03/18/23 22:28 162/78 H 03/18/23 22:18 36.6 C 95 H 18 162/78 H 94 03/18/23 22:07 03/18/23 22:03 36.6 C 03/18/23 21:08 101 H 18 161/88 H 97 03/18/23 20:50 102 H 23 97 03/18/23 20:50 161/88 H 03/18/23 20:45 97 H 17 97 03/18/23 20:45 175/87 H 03/18/23 20:45 98 H 18 98 03/18/23 20:40 98 H 17 96 03/18/23 20:40 194/99 H 03/18/23 20:40 36.6 C 98 H 18 161/88 H 98 03/18/23 20:38 193/98 H 03/18/23 20:38 98 H 15 97 03/18/23 20:35 101 H 33 H 95 03/18/23 20:35 101 H 03/18/23 20:35 97 Pulse Ox O2 Del Method O2 Del Method O2 Flow Rate O2 Flow Rate 03/18/23 22:45 03/18/23 22:33 Nasal Cannula 2 03/18/23 22:30 03/18/23 22:28 03/18/23 22:18 Nasal Cannula 2 03/18/23 22:07 94 Nasal Cannula 2 03/18/23 22:03 03/18/23 21:08 Room Air 03/18/23 20:50 03/18/23 20:50 03/18/23 20:45 03/18/23 20:45 03/18/23 20:45 Room Air 03/18/23 20:40 03/18/23 20:40 03/18/23 20:40 Room Air 03/18/23 20:38 03/18/23 20:38 03/18/23 20:35 03/18/23 20:35 03/18/23 20:35 Room Air 0 Coding Level of Care Code 43633 IN/OBS CONSULT LVL 3,45M Diagnoses STEMI (ST elevation myocardial infarction) I21.3 Diabetic nephropathy associated with type 2 diabetes mellitus E11.21 Chronic kidney disease, stage 3a N18.31 Primary hypertension I10 Hypertension type: primary hypertension Diabetes mellitus type 2 in obese E11.69; E66.9 Time Spent (min) 46 (4) Hypertension Hypertension type: primary hypertension Qualified Code(s): I10 - Essential ( primary) hypertension
[2023-03-19] MEDS: METHENAMINE HIPPURATE 1 GM TAB PO SCH ×3 (00:53→21:53)
[2023-03-19] MEDS ORDERED: LORazepam 0.5 MG TAB PO PRN (03:00)
[2023-03-19 04:37] LABS: Basophils # (auto) 0.03 K/uL (0.00-0.20); Basophils % (auto) 0.5 %; Eosinophils # (auto) 0.46 K/uL (0.00-0.50); Eosinophils % (auto) 7.2 %; Hematocrit (blood only) 35.1 % (37.0-47.0); Hemoglobin 11.5 g/dl (12.0-16.0); Immature Granulocytes # (auto) 0.03 K/uL (0.01-0.20); Immature Granulocytes % (auto) 0.5 %; Lymphocytes % (auto) 25.2 %; Mean Corpuscular Hgb Conc 32.8 g/dL (32.0-36.0); Mean Corpuscular Volume 85.4 fL (80.0-100.0); Mean Platelet Volume 9.1 fL (9.4-12.4); Monocytes # (auto) 0.63 K/uL (0.11-0.59); Monocytes % (auto) 9.9 %; Neutrophils # (auto) 3.61 K/uL (1.40-6.50); Neutrophils % (auto) 56.7 %; Platelet Count 203 K/uL (130-400); RDW Coefficient of Variation 13.9 % (11.5-14.5); RDW Standard Deviation 43.6 fL (36.4-46.3); Red Blood Count 4.11 M/uL (4.20-5.40); White Blood Count 6.36 K/ul (4.8-10.8)
[2023-03-19 04:54] LABS: BUN Creatinine Ratio 27.4 (10-20); Calcium 8.9 mg/dl (8.6-10.3); Chol HDL Ratio 5.7 (0-5); Creatinine Clr Calc Pharmacy 37.5 ml/min; Est GFR (African American) 48.9 ml/min; Est GFR (Non-African American) 42.2 ml/min; Magnesium 2.1 mg/dl (1.7-2.4); Phosphorus 3.6 mg/dl (2.5-4.9); Potassium 4.8 mmol/L (3.5-5.1)
[2023-03-19 05:04] LABS: Troponin I High Sensitivity 2548.9 pg/ml (0-14)
[2023-03-19] MEDS ORDERED: ICU Protocol for HYPERglycemia SCH (07:30)
--- NOTE | 2023-03-19 07:31 | Critical Care Progress Note ---
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: (2) STEMI (ST elevation myocardial infarction): (3) Chronic kidney disease, stage 3a: (4) Diabetes mellitus type 2 in obese: (5) Dyslipidemia: (6) Diabetic nephropathy associated with type 2 diabetes mellitus: (7) Hypertension: Plan (1) STEMI (ST elevation myocardial infarction) (2) Chronic kidney disease, stage 3a: (3) Diabetic nephropathy associated with type 2 diabetes mellitus: (4) Hypertension: (5) Diabetes mellitus type 2 in obese: (6) Dyslipidemia: Impression: 77-year-old female presents to the ICU following inferior STEMI, s/p successful PCI with MAUREEN x 1 to the distal circumflex Neuro/Psych - [facility] ICU: Negative Neuropathycontinue gabapentin Depressioncontinue Seroquel Cardiac - STEMIs/p PCI with MAUREEN x 1 distal circumflex. -Follow cardiology recommendations -Follow-up TTE: LVEF 55-60%, mild lateral hypokinesis, LVH marginally worse compared to previous Echo -Trend troponin to peak (195 --> 854 --> 2549 --> 3291), have not peaked yet -ROSELINE-i, BB, statin, ASA, Brilinta -Monitor in ICU Respiratory - No history of pulmonary disease. Currently maintaining oxygen saturations on 2 L nasal cannula. Wean as tolerated. Consider diuresis if this does not improve. Continuous monitoring pulse ox GI - Heart healthy diet RENAL/LYTES - Creatinine within normal limits. Monitor routine BMPs and replete electrolytes as indicated - Strict I's and O's ENDO - DM type IIhemoglobin A1c pending. Basal bolus and sliding scale. ICU hyperglycemic protocol HEME - H&H stable, monitoring routine CBC ID - No indication for infectious process at this LINES/IV ACCESS - Peripheral IVs DVT PROPHYLAXIS - SCDs Tele- no arrhythmias Echo reviewed -- LVEF 55-60%. Very mild inferolateral hypokinesis. Mild MR. Admission and Anticipated Discharge Date Admission Date: March 18, 2023 Supervising Physician Co-Signing Physician Notes Dr. Wilder was resident physician during care of patient. I separately evaluated patient for rodriguez portions of the history and the exam. I was present during the critical portion of medical decision making, and I discussed the case with the resident. I generally agree with the findings and plan. Doing well without complaints stable for downgrade out of ICU. Subjective Patient is a 77 yo F w/ a PMHx of CKD stage III AA, vitamin D deficiency, diabetic nephropathy, diabetes mellitus type 2, small bowel enteritis, lumbar spinal stenosis, hypertension, statin myopathy, dyslipidemia and peripheral neuropathy. She presented to the [facility] ED, underwent assessment as a heart alert, was seen by interventional cardiology Dr. Arnie Martinez and taken directly from the ED to the cardiac catheterization lab, where she underwent single MAUREEN for a 99% blockage of l. circumflex artery. This morning she was seen and examined in the ICU. Patient denied chest pain, dyspnea, but feels significant fatigue. Patient not in any respiratory distress. Review of Systems Constitutional: no fever and no chills Respiratory: no cough and no chest congestion Cardiovascular: no chest pain, no palpitations and no lightheadedness Gastrointestinal: no abdominal pain, no nausea, no vomiting and no diarrhea/loose stools Musculoskeletal: no myalgia and no muscle weakness Neurologic: no tingling and no numbness Physical Exam Constitutional: WD/WN, vitals as above Respiratory: normal respiratory effort, lungs clear to auscultation Cardiovascular: Rate/Rhythm: regular rate and regular rhythm Extremities: no pedal edema Gastrointestinal (Abdomen): normal bowel sounds, soft, nontender, no hepatosplenomegaly Psychiatric: A+Ox3, euthymic affect Results & Data Results & Data Vital Signs (Past 12 Hours) Vital Signs Temp Pulse Pulse Resp BP BP Pulse Ox 03/19/23 06:00 36.6 C 93 H 18 164/87 H 96 03/19/23 05:30 94 H 15 97 03/19/23 05:24 166/112 H 03/19/23 05:24 93 H 12 98 03/19/23 05:00 87 16 93 03/19/23 04:30 86 14 98 03/19/23 04:25 177/88 H 03/19/23 04:25 88 15 97 03/19/23 04:00 86 17 99 03/19/23 04:00 36.6 C 87 18 177/88 H 97 03/19/23 03:30 86 13 98 03/19/23 03:25 177/89 H 03/19/23 03:25 85 16 98 03/19/23 03:00 86 16 97 03/19/23 03:00 36.6 C 84 18 177/89 H 98 03/19/23 02:30 85 12 97 03/19/23 02:25 155/88 H 03/19/23 02:25 86 14 99 03/19/23 02:00 86 14 98 03/19/23 02:00 36.6 C 85 18 155/88 H 97 03/19/23 01:30 86 14 99 03/19/23 01:30 197/85 H 03/19/23 01:24 176/86 H 03/19/23 01:24 87 10 L 98 03/19/23 01:10 85 14 99 03/19/23 01:10 195/81 H 03/19/23 01:00 84 10 L 99 03/19/23 00:54 129/99 03/19/23 00:54 86 19 100 03/19/23 00:45 87 15 98 03/19/23 00:39 162/85 H 03/19/23 00:39 86 12 98 03/19/23 00:32 36.6 C 93 H 18 115/68 95 03/19/23 00:30 88 16 99 03/19/23 00:24 167/85 H 03/19/23 00:24 88 12 99 03/19/23 00:15 88 15 97 03/19/23 00:09 160/86 H 03/19/23 00:09 91 H 14 97 03/19/23 00:00 92 H 13 95 03/19/23 00:00 03/19/23 00:00 36.6 C 93 H 18 162/85 H 96 03/18/23 23:54 140/67 03/18/23 23:54 92 H 13 96 03/18/23 23:48 36.6 C 93 H 18 115/68 95 03/18/23 23:45 94 H 12 95 03/18/23 23:40 94 H 12 95 03/18/23 23:39 94 H 12 95 03/18/23 23:39 115/68 03/18/23 23:30 95 H 13 95 03/18/23 23:24 153/75 H 03/18/23 23:24 95 H 13 96 03/18/23 23:20 95 H 14 97 03/18/23 23:10 96 H 15 96 03/18/23 23:10 178/81 H 03/18/23 23:00 96 H 18 97 03/18/23 22:55 96 H 17 95 03/18/23 22:55 133/105 H 03/18/23 22:50 94 H 20 95 03/18/23 22:48 36.6 C 95 H 18 178/81 H 97 03/18/23 22:45 95 H 19 94 03/18/23 22:33 36.6 C 95 H 18 133/105 H 95 03/18/23 22:30 95 H 15 96 03/18/23 22:28 162/78 H 03/18/23 22:18 36.6 C 95 H 18 162/78 H 94 03/18/23 22:07 95 H 03/18/23 22:07 03/18/23 22:03 36.6 C 03/18/23 21:08 101 H 18 161/88 H 97 03/18/23 20:50 102 H 23 97 03/18/23 20:50 161/88 H 03/18/23 20:45 97 H 17 97 03/18/23 20:45 175/87 H 03/18/23 20:45 98 H 18 98 03/18/23 20:40 98 H 17 96 03/18/23 20:40 194/99 H 03/18/23 20:40 36.6 C 98 H 18 161/88 H 98 03/18/23 20:38 193/98 H 03/18/23 20:38 98 H 15 97 03/18/23 20:35 101 H 33 H 95 03/18/23 20:35 101 H 03/18/23 20:35 97 Pulse Ox O2 Del Method O2 Del Method O2 Flow Rate O2 Flow Rate 03/19/23 06:00 Room Air 03/19/23 05:30 03/19/23 05:24 03/19/23 05:24 03/19/23 05:00 03/19/23 04:30 03/19/23 04:25 03/19/23 04:25 03/19/23 04:00 03/19/23 04:00 Room Air 03/19/23 03:30 03/19/23 03:25 03/19/23 03:25 03/19/23 03:00 03/19/23 03:00 Nasal Cannula 2 03/19/23 02:30 03/19/23 02:25 03/19/23 02:25 03/19/23 02:00 03/19/23 02:00 Nasal Cannula 2 03/19/23 01:30 03/19/23 01:30 03/19/23 01:24 03/19/23 01:24 03/19/23 01:10 03/19/23 01:10 03/19/23 01:00 03/19/23 00:54 03/19/23 00:54 03/19/23 00:45 03/19/23 00:39 03/19/23 00:39 03/19/23 00:32 Nasal Cannula 2 03/19/23 00:30 03/19/23 00:24 03/19/23 00:24 03/19/23 00:15 03/19/23 00:09 03/19/23 00:09 03/19/23 00:00 03/19/23 00:00 Nasal Cannula 2 03/19/23 00:00 Nasal Cannula 2 03/18/23 23:54 03/18/23 23:54 03/18/23 23:48 Nasal Cannula 2 03/18/23 23:45 03/18/23 23:40 03/18/23 23:39 03/18/23 23:39 03/18/23 23:30 03/18/23 23:24 03/18/23 23:24 03/18/23 23:20 03/18/23 23:10 03/18/23 23:10 03/18/23 23:00 03/18/23 22:55 03/18/23 22:55 03/18/23 22:50 03/18/23 22:48 Nasal Cannula 2 03/18/23 22:45 03/18/23 22:33 Nasal Cannula 2 03/18/23 22:30 03/18/23 22:28 03/18/23 22:18 Nasal Cannula 2 03/18/23 22:07 03/18/23 22:07 94 Nasal Cannula 2 03/18/23 22:03 03/18/23 21:08 Room Air 03/18/23 20:50 03/18/23 20:50 03/18/23 20:45 03/18/23 20:45 03/18/23 20:45 Room Air 03/18/23 20:40 03/18/23 20:40 03/18/23 20:40 Room Air 03/18/23 20:38 03/18/23 20:38 03/18/23 20:35 03/18/23 20:35 03/18/23 20:35 Room Air 0 (7) Hypertension Hypertension type: primary hypertension Qualified Code(s): I10 - Essential (primary) hypertension
[2023-03-19] MEDS: INSULIN ASPART PER UNIT CHARGE SC SCH ×4 (07:58→21:50)
[2023-03-19 07:59] LABS: Estimated Average Glucose 146 mg/dl; Hemoglobin A1C 6.7 % (4.5-5.6)
[2023-03-19] MEDS: GABAPENTIN 800 MG TAB PO SCH ×3 (07:59→21:46)
[2023-03-19] MEDS: ATORVASTATIN 40 MG TAB PO SCH (07:59)
[2023-03-19] MEDS: PSYLLIUM or GUAR GUM FIBER POWDER PACKET PO SCH (07:59)
[2023-03-19] MEDS: ASPIRIN 81 MG ECTAB PO SCH (07:59)
[2023-03-19] MEDS: TICAGRELOR 90 MG TAB PO SCH ×2 (07:59→21:55)
[2023-03-19] MEDS: OXYBUTYNIN CHLORIDE XL 5 MG TABCR PO SCH (07:59)
[2023-03-19] MEDS: CITALOPRAM 20 MG TAB PO SCH (08:00)
[2023-03-19] MEDS: POLYETHYLENE (MIRALAX) 17 GM PACK PO SCH (08:00)
[2023-03-19] MEDS: TIMOLOL MALEATE 0.5% OP SOLN 5 ML BTL OP SCH (08:00)
[2023-03-19] MEDS: GABAPENTIN 100 MG CAP PO SCH ×3 (08:00→21:46)
[2023-03-19] MEDS ORDERED: [UNRECOGNIZED DRUG - REMARK] SCH (08:00)
[2023-03-19] MEDS: LANTUS PER UNIT CHARGE SQ SCH (08:03)
--- OUTSIDE RECORDS SUMMARY | 2023-03-19 08:42 | External Medical Summary | Summary of Care ---
Author Name Unknown Organization [facility] Address [address] [facility] [place] [place] [address] Phone [phone] Care Team Providers Care Windows Server Engineer Name Role Phone Levon Adamesmerml Primary Care Provider Reason for Visit * Reason Comments Follow Up 2-6 week f/u; pt has no complaints since DANNY Encounter Details Date Type Department Care Team (Late st Contact Info) Description 03/04/2023 1:15 PM EST Office Visit Ophthalmology, 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*; Exudative age-related macular degeneration of right eye with inactive scar (HCC); Exudative age-related macular degeneration of left eye with active choroidal neovascularization (HCC) Allergies Active Allergy Reactions Criticality Noted Date Comments Latex 12/31/2005 "Bumpy and itchy" Niacin 01/19/2007 Intolerance, painful flushing and burning Simvastatin 06/25/2006 Has had episode rhabdomolysis documented as of this encounter (statuses as of 03/04/2023) Medications Medication Sig Dispensed Refills Start Date End Date Status ACETAMINOPHEN 325 MG PO TABSIndications:H eadache(784.0) Two pills by mouth every 6 hours as needed for fever or pain: give 2 tab every evening at bedtime. 100 Tab 0 12/31/2012 Active distilled water LIQD FOR USE WITH BIPAP 8000 mL 5 08/04/2014 Active glucose 4 G CHEWIndications:D M type 2, goal A1C below 8.0 Take 1 Tab by mouth daily as needed for Hypoglycemia (low sugar) (pt may carry on her person.). 1 Tab 0 09/28/2014 Active Fluorometholone 0.1 % ophthalmic suspension Instill 1 Drop into both eyes in the morning. 5 mL 0 11/03/2014 Active timolol (TIMOPTIC) 0.5 % ophthalmic solution Instill 1 Drop into both eyes in the morning. Each eye. 0 Active cloNIDine (CATAPRES) 0.1 MG TabletIndications :HTN, goal to be determined TAKE (1) TABLET BY MOUTH 2 TIMES A DAY. 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 100 Tab 3 01/07/2017 Active ONETOUCH DELICA LANCETS 33G MISC by Device route 4 times a day. 100 Each 6 03/03/2017 Active polyethylene glycol 3350 (MIRALAX) packet Take 1 Packet by mouth daily. 30 Each 11 04/14/2017 Active Insulin Lispro (HUMALOG KWIKPEN) 100 UNIT/ML SOPN sliding scale 4 times daily 0-150=0 151-200=4U, 201-250=6U, 251-300=8U, 301-350=10U, 351-400=12U, over 400 give 12 u and recheck in 1-2 hr. 5 Pre-filled Pen Syringe Dosing Unit 12 04/22/2017 Active tolterodine (DETROL) 2 MG Tablet Take 1 Tablet by mouth in the morning. 0 05/26/2017 Active omeprazole (PRILOSEC) 20 MG CPDRIndications:G astroesophageal reflux disease without esophagitis TAKE ONE CAPSULE BY MOUTH ONCE DAILY FOR GERD 30 Cap 5 07/24/2017 Active Multiple Vitamins-Minerals (PRESERVISION AREDS 2) Capsule TAKE 1 CAPSULE BY MOUTH TWICE DAILY FOR SUPPLEMENT 60 Cap 11 08/20/2017 Active Insulin Glargine 100 UNIT/ML Subcutaneous Solution Inject under the skin at bedtime. 0 Active LORazepam (ATIVAN) 1 MG Tablet Take 1 Tab by mouth at bedtime. 30 Tab 1 11/17/2017 Active Additional Information Patient taking differently: 0.5 mgOral HS, Reported on 06/05/2022 Artificial Tear Solution (SOOTHE XP) SOLN Instill 1 Drop into both eyes 4 times a day. 1 Bottle 6 02/08/2018 Active Methenamine Hippurate 1 g TABS Take by mouth 2 times a day. 0 Active diphenhydrAMINE HCl 25 MG Oral Capsule Take 1 Capsule by mouth 3 times a day as needed for Itching. 0 Active Diclofenac Sodium 1 % External Gel (Voltaren) Apply to left foot twice daily. 100 g 1 10/03/2020 Active Chlorthalidone 25 MG Oral Tablet (Hygroton) 1 Tablet. 0 04/05/2021 Active LORazepam 0.5 MG Oral Tablet (Ativan) 0 05/10/2021 Active Citalopram Hydrobromide 20 MG Oral Tablet (CeleXA) 0 04/23/2021 Active Gabapentin 800 MG Oral Tablet (Neurontin) 0 03/20/2022 Active HYDROcodone-Aceta minophen 7.5-325 MG Oral Tablet 1 Tablet. 0 10/21/2020 Active Ketoconazole 2 % External Cream 0 01/01/2022 Active Estrogens, Conjugated 0.625 MG/GM Vaginal Cream (Premarin) 0.1 g . 0 06/27/2021 Active Menthol-Zinc Oxide 0.44-20.625 % External Ointment (Calmoseptine) TWICE A DAY 0 07/23/2021 Active Nitrofurantoin Monohyd Macro 100 MG Oral Capsule (Macrobid) 1 Capsule. 0 03/25/2021 Active oxygen IN GAS 3 LPM bled through BIPAP during hours of sleep 1 Each 0 06/20/2022 Active Trulicity 0.75 MG/0.5ML Subcutaneous Solution Pen-injector 0.75 mg. 0 09/01/2022 Active Spironolactone 50 MG Oral Tablet (Aldactone) Take 1 Tablet by mouth in the morning. 0 02/27/2023 Active Vitamin D (Ergocalciferol) 1.25 MG (17511 UT) Oral Capsule (Drisdol) Take 1 Capsule by mouth once a week. 0 02/24/2023 Active Gabapentin 100 MG Oral Capsule (Neurontin) Take 1 Capsule by mouth in the morning and 1 Capsule at noon and 1 Capsule before bedtime. 0 02/24/2023 Active Lisinopril 40 MG Oral Tablet Take 1 Tablet by mouth in the morning. 0 02/24/2023 Active QUEtiapine Fumarate 50 MG Oral Tablet (SEROquel) Take 1 Tablet by mouth at bedtime. 0 02/24/2023 Active QUEtiapine (SEROQUEL) 200 MG TabletIndications :Major depressive disorder, recurrent episode, in partial remission (HCC) TAKE 1 TABLET BY MOUTH AT BEDTIME. *SENILE PSYCHOTIC CONDITION * 7 Tab 5 06/29/2017 3 Discontinu ed(Medicat ion List Clean Up) gabapentin (NEURONTIN) 300 MG Capsule Take 1 Cap by mouth 3 times a day. 90 Cap 11 07/21/2018 3 Discontinu ed(Medicat ion List Clean Up) Lisinopril 2.5 MG Oral Tablet (Prinivil) Take 1 Tablet by mouth in the morning. 0 05/22/2020 3 Discontinu ed(Medicat ion List Clean Up) Hospital, Clinic, or Other Facility Administered Medication Ordered Dose Route Frequency Start Date End Date Status ROPivacaine (Naropin) inj 1.5 mgIndications:Exudative age-related macular degeneration of left eye with active choroidal neovascularization (HCC) 1.5 mg IJ PRN 11/12/2022 11/12/2023 Active Aflibercept (Eylea) intraviteal prefilled syringe 2 mgIndications:Exudative age-related macular degeneration of left eye with active choroidal neovascularization (HCC) 2 mg IZ PRN 11/12/2022 11/12/2023 Active documented as of this encounter (statuses as of 03/04/2023) Active Problems Problem Noted Date Diagnosed Date Nocturnal hypoxemia 07/09/2018 Type 2 diabetes mellitus wit h diabetic polyneuropathy, with long-term current use of insulin 03/13/2017 Major depressive disorder, r ecurrent episode, in partial remission 03/13/2017 Type 2 diabetes mellitus wit h hemoglobin A1c goal of less than 8.0% 09/30/2016 HTN, goal below 140/90 03/31/2014 Statin intolerance 07/08/2013 Aspirin contraindicated 10/06/2012 ROMAN treated with BiPAP 08/22/2011 Morel's esophagus 05/31/2010 DYSLIPIDEMIA, GOAL LDL BELOW 100 02/22/2009 Overview: Per Lipid Taxonomy. Regional enteritis 12/01/2008 GENERAL OSTEOARTHROSIS 12/31/2005 HYPERSOMNI W SLEEP APNEA 12/31/2005 Reflux esophagitis documented as of this encounter (statuses as of 03/04/2023) Resolved Problems Problem Noted Date Diagnosed Date Resolved Date Type 2 diabetes mellitus wit h stage 3 chronic kidney disease, with long-term current use of insulin 07/19/2016 07/24/2016 Type 2 diabetes mellitus wit h hemoglobin A1c goal of less than 8.0% 06/02/2014 09/30/2016 Overview: ICD-10 update of inactive term Chest pain 02/24/2013 07/19/2016 Fuchs' corneal dystrophy 07/20/201208/2016 S/P knee replacement 04/20/2012 017 Type 2 diabetes mellitus wit h hemoglobin A1c goal of 7.0%-8.0% 03/05/2012 06/02/2014 Overview: ICD-10 update of inactive term RBBB 01/07/2012 07/19/2016 HTN, goal below 140/80 11/03/201103/31 Overview: Per HTN Protocol #27. OBSTIPATION 08/17/2010 07/19/2016 Urinary tract infection 08/17/2010 05/08/2016 Dysuria 08/17/2010 06/06/2011 Obesity, morbid (more than 1 00 lbs over ideal weight or BMI > 40) 08/28/2009 07/19/2016 Overview: Per Obesity Protocol, #19 ICD-10 update of inactive term Intestinal infection due to Clostridium difficile 08/06/2009 02/28/2015 Gastroparesis 04/30/2009 07/19/2016 HTN, GOAL BELOW 130/80 02/06/200911/05 Overview: Modified per HTN protocol #16. Type 2 diabetes mellitus wit h hemoglobin A1c goal of less than 7.0% 12/28/2008 07/30/2011 Overview: Modified per Diabetes protocol #14. ICD-10 update of inactive term ACTIVE CASE MANAGEMENT Isa Reed RN [phone] 09/12/2008 12/31/2009 Left internal carotid stenosis 40-50% 09/06/2008 07/19/2016 Overview: Carotid us should be performed 02/21 and if stable yearly thereafter Rhabdomyolysis 06/25/2006 07/19/2016 PREOPERATIVE CARDIOVASCULAR EXAMINATION 05/12/2006 06/06/2011 DM type 2, not at goal 12/31/200512/28 Overview: Modified per Diabetes protocol #14. Tachycardia 05/06/2002 07/19/2016 Mixed dyslipidemia 05/21/2001 9 Overview: Per Lipid Taxonomy. HYPERTENSION NOS 02/06/2009 Overview: Modified per HTN protocol #16. DIAB RENAL MANIF ADULT 07/19 Seborrhea 06/06/2011 Calculus of kidney 7 documented as of this encounter (statuses as of 03/04/2023) Immunizations Name Administration Dates Next Due COVID-19 mRNA, LNP-s, No Pre serve, 2-Dose Series (Moderna) 10/16/2020,04/24/2020,03/27/2020 H1N1 2009 Influenza, IM 04/06/2009 Hepatitis B, 20+ yrs 10/05/2013 Pneumococcal Conjugate Vacc, 13 Valent (Prevnar) 09/10/2015 Pneumococcal Polysaccharide PPV23 (Pneumovax) 06/17/2013 Seasonal Influenza, PF, 6 M & above, IM , (FluLaval or Fluzone) 01/07/2017 Seasonal Influenza, Quadriva lent Hd, 65+ Yrs 12/23/2020,12/21/2019 Seasonal Influenza, Quadriva lent, No Preserve, IM 12/24/2015 Seasonal Influenza, Split, I IV3, With Preserve, Inj 12/14/2017,12/23/2014,01/02/2014,12/23,01/02/2012,12/25/2010,12/08/2009 ,11/16/2008,01/05/2008,01/19/2007,03/2006 Seasonal Influenza, Trivalen t, Adjuvanted, 65+ yrs 12/14/2018 TDAP (age 11 and older)(Adacel) 01/20/2020,01/04 Varicella Zoster Vaccine (Adult) 05/12/2014 documented as of this encounter Social History Tobacco Use Types Packs/Day Years Used Date Smoking Tobacco: Former Cigarettes 1 Q uit: 08/17/2008 Smokeless Tobacco: Never Comments:1 1/2 daily x 40+ y rs; Quit in 2008 Alcohol Use Standard Drinks/Week Comments Yes 0 (1 standard drink = 0.6 oz pur e alcohol) rare PHQ-2 Answer Date Recorded PHQ-2 Score 7 01/17/2018 Sex and Gender Information Value Date Recorded Sex Assigned at Not on file Gender Identity Not on file Sexual Orientation Not on file Job Start Date Occupation Industry Not on file Not on file Not on file documented as of this encounter Progress Notes * Arnie Palumbo DO - 03/04/2023 1:15 PM EST TIMEOUT PROCEDURE: correct patient identity-YES correct procedure and consent-YES verified side and site-YES correct patient position-YES all necessary equipment/prior studies present-YES reviewed special requirements of this patient-YES PROCEDURE: Cleary-retinal photocoagulation, OD. DIAGNOSIS: retinal neovascularization COMPLICATIONS: None. ANESTHESIA: Topical. INDICATIONS FOR PROCEDURE: Decrease risk of vision loss. CONSENT: Risk and benefits and alternatives were discussed with the patient including but not limited to decreased visual acuity, inflammation, corneal abrasion, pain, glaucoma, night blindness, hemorrhage, cataract, and the need for more procedures. Patient is aware of these risks and consents to the procedure. DESCRIPTION OF PROCEDURE: Informed written consent was obtained and the laser site was confirmed. The patient was brought to the laser room and seated in the exam chair. Topical proparacaine was administered and panretinal photocoagulation was performed in the standard fashion. Moderately intense daly were achieved, using the following settings: ANGIE wavelength: yellow duration: 20 ms spot size settin microns power: 400-450 milliwatts total # of spots: 1520 The patient tolerated the procedure well and left in stable condition with follow-up instructions. Arnie Palumbo DO f/u 3-4 weeks for end of day laser OD; dilate OD x 2 OCT OU (OMID laser) documented in this encounter Nursing Notes * Megan Bryson MED ASSIST - 03/04/2023 1:18 PM EST Stefany Arroyo is a 77 year old year old female who presents for AMD OU. Last Office Visit: 02/02/2023 (in office), Visit date not found (telemedicine) Patient currently states no change in vision. Are you diabetic? Yes. Do you check your blood sugars daily? YES. BS this mornin mg/dl. Last Hemoglobin A1C: Lab Results Component Value Date/Time HGBA1C 8.0 (A) 03/12/2017 12:00 AM HGBA1C 7.5 (A) 09/23/2016 12:00 AM HGBA1C 7.5 (H) 05/28/2016 08:05 AM HGBA1C 7.1 (H) 05/06/2016 06:40 AM HGBA1C 8.2 (H) 12/25/2015 06:[address]? no Fundus image(s) of right eye acquired and filed/scanned into chart. documented in this encounter Plan of Treatment Upcoming Encounters Date Type Department Care Team (Late st Contact Info) Description 04/20/2023 11:15 AM EST Office Visit Ophthalmology, [facility] [address] [place] [address] Arnie Palumbo, [address] [place] [address] 05/08/2023 9:00 AM EST Hospital Encounter ENDO [facility], Endoscopy Room [facility] [address] [place] [phone] Pato Jones MD [address] [place] [address] 05/08/2023 9:00 AM EST - 05/08/2023 9:45 AM EST Surgery ENDO [facility], Endoscopy Room [facility] [address] [place] [phone] Pato Jones MD [address] [place] [address] COLONOSCOPY FLEXIBLE PROXIMAL DIAGNOSTIC Scheduled Orders Name Type Priority Associated Diagnoses Orde r Schedule FUNDUS PHOTOGRAPHY Procedures Routine Exudative age-related macular degeneration of right eye with inactive scar (HCC) Exudative age-related macular degeneration of left eye with active choroidal neovascularization (HCC) Ordered: 03/04/2023 RETINA SCAN DIAGNOSTIC IMAGE, POSTERIOR Procedures Routine Exudative age-related macular degeneration of right eye with inactive scar (HCC) Exudative age-related macular degeneration of left eye with active choroidal neovascularization (HCC) Ordered: 03/04/2023 Scheduled Procedures Name Priority Associated Diagnoses Date/Ti me COLONOSCOPY FLEXIBLE PROXIMA L DIAGNOSTIC Recall History of colon polyps Melena Abdominal pain, epigastric Adenomatous polyps 05/08/2023 9:00 AM EST ESOPHAGOGASTRODUODENOSCOPY ( EGD), FLEXIBLE, TRANSORAL, DIAGNOSTIC Recall History of colon polyps Melena Abdominal pain, epigastric Adenomatous polyps 05/08/2023 9:00 AM EST Health Maintenance Due Date Last Done Comments Hepatitis B (2 of 3 - Risk 3-dose series) 11/02/2013 10/05/2013 Morel's Esophagus Surveilance 09/09/2014 09/10/2011, 09/10/2011, 01/15/2009, Additional history exists HbA1c 09/10/2017 03/12/2017, 09/13, 05/28/2016, Additional history exists Diabetic Foot Exam 09/29/2017 09/29/2016, 0 06/22/2015, 02/20/2014, Additional history exists Albumin/Creatinine Ratio 03/12/2018 017, 03/12/2017, 12/25/2015, Additional history exists GFR 03/12/2018 03/12/2017, 02/14, 12/25/2015, Additional history exists Depression Screening 03/13/2018 03/13/2017 DXA Scan 05/29/2018 05/29/2014, 05/14, 05/22/2005, Additional history exists COLONOSCOPY-EVERY 5 YRS AGES 18-100 08/28/2022 08/28/2017, 08/28/2017, 07/03/2014, Additional history exists Zoster Vaccines (3 of 3) 09/15/2022 07/21/2022, 04/17 COVID-19 Vaccine ( season) 2022 10/16/2020, 04/24/2020, 03/27/2020 Influenza Vaccine (FLU shot) (#1) 2022 12/23/2020, 12/21/2019, 12/14/2018, Additional history exists Diabetic Eye Exam 11/13/2023 11/12/2022, , 08/28/2022, Additional history exists DTaP,Tdap,and Td Vaccines (3 - Td or Tdap) 01/19/2030 01/20/2020, 01/05/2008 Pneumococcal Vaccine: 65+ Years Completed 09/10/2015, 06/17/2013, 07/12/2001 GARDASIL-HPV IMMUNIZATION SERIES Aged Out No longer eligible based on patient's age to complete this topic MENINGOCOCCAL (MENACTRA/MENVEO) Aged Out No longer eligible based on patient's age to complete this topic documented as of this encounter Medical Devices Not on filedocumented as of this encounter Visit Diagnoses Diagnosis Branch retinal vein occlusion of right eye with retinal neovascularization- Primary Exudative age-related macular degeneration of right eye with inactive scar (HCC) Exudative age-related macular degeneration of left eye with active choroidal neovascularization (HCC) History of colon polyps Personal history of colonic polyps Melena Blood in stool Abdominal pain, epigastric Adenomatous polyps Benign neoplasm of unspecified site documented in this encounter Advance Directives Documents on File Type Date Recorded Patient Steel Box Toe Inserter Expl anation MATIAS 05/12/2016 MATIAS BARONE ORDERS FOR LIFE-SUSTAINING TREATMENT Advance Directives and Living Will 05/09/2010 ADVANCE DIRECTIVE DURABLE HEALTH CARE POWER OF SAMPLE TAKER OPERATOR & ADVANCE DIRECTIVE Care Teams Windows Server Engineer Relationship Specialty Start Date End Date Levon Adam DO [address] [place] [address] PCP - General Family Medicine 11/12/22 documented as of this encounter
--- OUTSIDE RECORDS SUMMARY | 2023-03-19 08:43 | External Medical Summary | Summary of Care ---
Author Name Unknown Organization [facility] Address [address] [place] [place] [address] Phone [phone] Care Team Providers Care Poultry Hatchery Manager Name Role Phone Levon Adamesmerml Primary Care Provider Reason for Visit * Reason Comments Follow Up 2-6 week f/u; pt has no complaints since DANNY Encounter Details Date Type Department Care Team (Late st Contact Info) Description 03/04/2023 1:15 PM EST Office Visit Ophthalmology, [facility] [address] [place] [place] [address] Arnie Palumbo DO [address] [place] [address] Branch retinal vein occlusion of right eye [...] mellitus with hemoglobin A1c goal of 7.0%-8.0% ([facility]) USE UP TO 6 TIMES A DAY [...] STRPIndications: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 ([facility]) USE TO TEST BSG FOUR TIMES DAILY [...] 02/27/2023 Active Vitamin D (Ergocalciferol) 1.25 MG (51128 UT) Oral Capsule (Drisdol) Take 1 Capsule [...] term ACTIVE CASE MANAGEMENT Isa Reed RN [phone] 09/12/2008 12/31/2009 Left internal carotid stenosis 40-50% [...] 04/20/2023 11:15 AM EST Office Visit Ophthalmology, [facility] [address] [place] [address] Arnie Palumbo, [address] [place] [address] 05/08/2023 9:00 AM EST Hospital Encounter ENDO [facility], Endoscopy Room [facility] [address] [place] [phone] Pato Jones MD [address] [place] [address] 05/08/2023 9:00 AM EST - 05/08/2023 9:45 AM EST Surgery ENDO [facility], Endoscopy Room [facility] [address] [place] [phone] Pato Jones MD [address] [place] [address] COLONOSCOPY FLEXIBLE PROXIMAL DIAGNOSTIC Scheduled Orders Name [...] Documents on File Type Date Recorded 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
[2023-03-19] MEDS ORDERED: SPIRONOLACTONE 25 MG TAB PO SCH (09:00)
[2023-03-19] MEDS ORDERED: METOPROLOL TARTRATE 25 MG TAB PO SCH (09:00)
[2023-03-19] MEDS ORDERED: NON-FORMULARY MEDICATION (Insulin Glargine [Lantus Solostar U-100 Insulin] 100 unit/mL (3 SQ SCH (09:00)
[2023-03-19] MEDS ORDERED: lisinopril 5 MG TAB PO SCH (09:00)
[2023-03-19] MEDS ORDERED: LANTUS PER UNIT CHARGE SQ SCH (09:00)
--- NOTE | 2023-03-19 09:18 | Cardiology Progress Note ---
Date of Service March 19, 2023 Assessment & Plan (1) CAD (coronary artery disease): Plan: --PCI to subtotal distal LCx with single MAUREEN 03/18 --80% small distal LAD disease - medically manage 2. Preserved LV function - mild inferolateral hypokinesis 3. Mild mitral regurgitation. 5. Type 2 DM 6. Hypertension 7. Stage III CKD Chest pain free. Mild troponin rise. Sinus tach but otherwise electrically stable No signs of heart failure on exam/echo No apparent access site complications. Blood pressures elevated -- Continue DAPT with ASA/Ticagrelor -- Increase lisinopril to 20mg BID (home 40mg daily). -- Increase metoprolol to 25mg TID (consider switch to carvedilol if BP remains elevated). -- Increase spironolactone to 25mg BID -- Continue current statin From a cardiac standpoint OK with transition to telemetry today, potentially home tomorrow. Appreciate ICU and hospital medicine care. Admission and Anticipated Discharge Date Admission Date: March 18, 2023 Subjective Feels worn out this morning. No chest pain. Breathing comfortably. Prior constipation. Tele- no arrhythmias Echo reviewed -- LVEF 55-60%. Very mild inferolateral hypokinesis. Mild MR. Review of Systems Review of Systems: All systems reviewed & are unremarkable except as noted in HPI & below Physical Exam Physical Exam: General: Comfortable HEENT: Sclerae anicteric Lungs: Clear to auscultation bilaterally Cardiac: Regular rate and rhythm, faint holosystolic murmur at apex. Vascular: 2+ RT radial. Minimal ecchymosis. No hematoma. Intact distal sensation/cap refill. Abdomen: Soft, nontender Extremities: Well perfused, no peripheral edema Neuro: Nonfocal Psych: Alert orient x3, normal affect and mood Results & Data Vital Signs (Past 12 Hours) Vital Signs Temp Pulse Pulse Resp BP BP Pulse Ox 03/19/23 08:00 03/19/23 08:00 94 H 03/19/23 08:00 97.7 F 97 H 17 163/79 H 97 03/19/23 06:00 97.9 F 93 H 18 164/87 H 96 03/19/23 05:30 94 H 15 97 03/19/23 05:24 166/112 H 03/19/23 05:24 93 H 12 98 03/19/23 05:00 87 16 93 03/19/23 04:30 86 14 98 03/19/23 04:25 177/88 H 03/19/23 04:25 88 15 97 03/19/23 04:00 86 17 99 03/19/23 04:00 97.9 F 87 18 177/88 H 97 03/19/23 03:30 86 13 98 03/19/23 03:25 177/89 H 03/19/23 03:25 85 16 98 03/19/23 03:00 86 16 97 03/19/23 03:00 97.9 F 84 18 177/89 H 98 03/19/23 02:30 85 12 97 03/19/23 02:25 155/88 H 03/19/23 02:25 86 14 99 03/19/23 02:00 86 14 98 03/19/23 02:00 97.9 F 85 18 155/88 H 97 03/19/23 01:30 86 14 99 03/19/23 01:30 197/85 H 03/19/23 01:24 176/86 H 03/19/23 01:24 87 10 L 98 03/19/23 01:10 85 14 99 03/19/23 01:10 195/81 H 03/19/23 01:00 84 10 L 99 03/19/23 00:54 129/99 03/19/23 00:54 86 19 100 03/19/23 00:45 87 15 98 03/19/23 00:39 162/85 H 03/19/23 00:39 86 12 98 03/19/23 00:32 97.9 F 93 H 18 115/68 95 03/19/23 00:30 88 16 99 03/19/23 00:24 167/85 H 03/19/23 00:24 88 12 99 03/19/23 00:15 88 15 97 03/19/23 00:09 160/86 H 03/19/23 00:09 91 H 14 97 03/19/23 00:00 92 H 13 95 03/19/23 00:00 03/19/23 00:00 97.9 F 93 H 18 162/85 H 96 03/18/23 23:54 140/67 03/18/23 23:54 92 H 13 96 03/18/23 23:48 97.9 F 93 H 18 115/68 95 01/03/24 23:45 94 H 12 95 03/18/23 23:40 94 H 12 95 03/18/23 23:39 94 H 12 95 03/18/23 23:39 115/68 03/18/23 23:30 95 H 13 95 03/18/23 23:24 153/75 H 03/18/23 23:24 95 H 13 96 03/18/23 23:20 95 H 14 97 03/18/23 23:10 96 H 15 96 03/18/23 23:10 178/81 H 03/18/23 23:00 96 H 18 97 03/18/23 22:55 96 H 17 95 03/18/23 22:55 133/105 H 03/18/23 22:50 94 H 20 95 03/18/23 22:48 97.9 F 95 H 18 178/81 H 97 03/18/23 22:45 95 H 19 94 03/18/23 22:33 97.9 F 95 H 18 133/105 H 95 03/18/23 22:30 95 H 15 96 03/18/23 22:28 162/78 H 03/18/23 22:18 97.9 F 95 H 18 162/78 H 94 03/18/23 22:07 95 H 03/18/23 22:07 03/18/23 22:03 97.9 F Pulse Ox O2 Del Method O2 Del Method O2 Flow Rate O2 Flow Rate 03/19/23 08:00 Room Air 03/19/23 08:00 03/19/23 08:00 Room Air 03/19/23 06:00 Room Air 03/19/23 05:30 03/19/23 05:24 03/19/23 05:24 03/19/23 05:00 03/19/23 04:30 03/19/23 04:25 03/19/23 04:25 03/19/23 04:00 03/19/23 04:00 Room Air 03/19/23 03:30 03/19/23 03:25 03/19/23 03:25 03/19/23 03:00 03/19/23 03:00 Nasal Cannula 2 03/19/23 02:30 03/19/23 02:25 03/19/23 02:25 03/19/23 02:00 03/19/23 02:00 Nasal Cannula 2 03/19/23 01:30 03/19/23 01:30 03/19/23 01:24 03/19/23 01:24 03/19/23 01:10 03/19/23 01:10 03/19/23 01:00 03/19/23 00:54 03/19/23 00:54 03/19/23 00:45 03/19/23 00:39 03/19/23 00:39 03/19/23 00:32 Nasal Cannula 2 03/19/23 00:30 03/19/23 00:24 03/19/23 00:24 03/19/23 00:15 03/19/23 00:09 03/19/23 00:09 03/19/23 00:00 03/19/23 00:00 Nasal Cannula 2 03/19/23 00:00 Nasal Cannula 2 03/18/23 23:54 03/18/23 23:54 03/18/23 23:48 Nasal Cannula 2 03/18/23 23:45 03/18/23 23:40 03/18/23 23:39 03/18/23 23:39 03/18/23 23:30 03/18/23 23:24 03/18/23 23:24 03/18/23 23:20 03/18/23 23:10 03/18/23 23:10 03/18/23 23:00 03/18/23 22:55 03/18/23 22:55 03/18/23 22:50 03/18/23 22:48 Nasal Cannula 2 03/18/23 22:45 03/18/23 22:33 Nasal Cannula 2 03/18/23 22:30 03/18/23 22:28 03/18/23 22:18 Nasal Cannula 2 03/18/23 22:07 03/18/23 22:07 94 Nasal Cannula 2 03/18/23 22:03 PG Care Time/CCT Total # of Minutes Spent Total Time Spent with Patient: Total time spent is greater than 50% in coordination of care (as documented) at patient's floor/unit and/or counseling patient: Coding Level of Care Code 98430 SUB INP/OBS CARE 3/50MIN Diagnoses CAD (coronary artery disease) I25.10
--- NOTE | 2023-03-19 09:25 | Billing Data ---
Date of Service March 19, 2023 Coding Level of Care Code INP/OBS EV SAME DAY LV 2,70MIN
--- NOTE | 2023-03-19 11:07 | XCELERA ---
[id number]
[2023-03-19] MEDS: lisinopril 20 MG TAB PO SCH ×2 (11:51→21:53)
--- NOTE | 2023-03-19 11:58 | Pharmacy Report ---
Pharmacy Glycemic Short Note 2 - Date of Service March 19, 2023 - Glycemic Short BSG Results (Last 24 hours): 03/18/23 03/18/23 03/18/23 20:25 20:37 23:01 Glucose 129 H POC Glucose 151 H POC Glucose (other) 129 H 03/19/23 03/19/23 03/19/23 03:15 03:57 07:25 Glucose 128 H POC Glucose 137 H 121 H POC Glucose (other) 03/19/23 11:48 Glucose POC Glucose 156 H POC Glucose (other) OUTPATIENT ANTIDIABETIC REGIMEN: * Lantus 8 units SC Daily * Humalog SSI * Per most recent diabetes visit: 3 units SC with meals + 3 units for every 50 mg/dL over 200 mg/dL * Trulicity 3 mg SC once weekly * HbA1c: 6.7% (03/19/23) ASSESSMENT: * 77 yo F admitted on 03/18/23 secondary to STEMI and is now s/p PCI w/ one MAUREEN. Pharmacy has been consulted to assist with inpatient glycemic management. Patient is a Type 2 diabetic as an outpatient. Please refer to outpatient regimen and most recent HbA1c above. * BSGs last night were 129-151 mg/dL. Fasting BSG well controlled at 121 mg/dL. * Will start with Lantus 5 units today and see how patient tolerates. Expect diet to be less significant inpatient. Currently tolerating a T2DM diet postoperatively. * Novolog will be started based on weight and stress of 2. Will tighten goal range today to target all BSGs less than 180 mg/dL. PLAN FOR INPATIENT GLYCEMIC CONTROL: * Hold outpatient GLP1RA * Basal insulin * Lantus 5 units SC daily * Bolus insulin * NovoLog per scale ACHS or Q6hrs while NPO * Goal Range: Low 110 mg/dL - High 140 mg/dL * Correction Factor: 25 mg/dL/unit * Nutritional / Prandial insulin per carb ratio of 1 unit per 10 grams CHO consumed
--- NOTE | 2023-03-19 14:04 | Electrocardiogram Report ---
Test Reason : Blood Pressure : / mmHG Vent. Rate : 099 BPM Atrial Rate : 099 BPM P-R Int : 146 ms QRS Dur : 144 ms QT Int : 374 ms P-R-T Axes : 062 -05 063 degrees QTc Int : 479 ms Poor data quality, interpretation may be adversely affected Normal sinus rhythm Right bundle branch block ST elevation consider inferior injury or acute infarct ACUTE MD / STEMI Abnormal ECG When compared with ECG of 15-OCT-2020 09:39, Significant changes have occurred Confirmed by Christopher Lugo ([id number]) on 03/19/2023 2:04:20 PM Referred By: REFERRED SELF Confirmed By:Christopher Lugo
--- NOTE | 2023-03-19 14:06 | Electrocardiogram Report ---
Test Reason : Blood Pressure : / mmHG Vent. Rate : 099 BPM Atrial Rate : 099 BPM P-R Int : 162 ms QRS Dur : 148 ms QT Int : 386 ms P-R-T Axes : 067 028 024 degrees QTc Int : 495 ms Normal sinus rhythm Right bundle branch block Inferior ST abnormality Abnormal ECG When compared with ECG of 18-MAR-2023 20:37, (unconfirmed) No significant change was found Confirmed by Christopher Lugo ([id number]) on 03/19/2023 2:05:45 PM Referred By: REFERRED SELF Confirmed By:Christopher Lugo
--- NOTE | 2023-03-19 14:27 | Electrocardiogram Report ---
Test Reason : Blood Pressure : / mmHG Vent. Rate : 093 BPM Atrial Rate : 093 BPM P-R Int : 154 ms QRS Dur : 140 ms QT Int : 398 ms P-R-T Axes : 102 141 162 degrees QTc Int : 494 ms Suspect arm lead reversal, interpretation assumes no reversal Normal sinus rhythm Right bundle branch block Left posterior fascicular block Bifascicular block Inferior infarct , age undetermined Abnormal ECG When compared with ECG of 15-OCT-2020 09:39, Left posterior fascicular block is now Present T wave inversion now evident in Lateral leads Confirmed by Christopher Lugo ([id number]) on 03/19/2023 2:27:02 PM Referred By: REFERRED SELF Confirmed By:Christopher Lugo
[2023-03-19] MEDS: METOPROLOL TARTRATE 25 MG TAB PO SCH ×2 (14:36→21:56)
--- NOTE | 2023-03-19 16:03 | Hospitalist Progress Note ---
Date of Service March 19, 2023 Assessment & Plan (1) STEMI (ST elevation myocardial infarction): Plan: P/w CP, nausea for 2-3 hours, with inferior ST elevations on ECG, elevated trop, called as a heart alert in ER Cath with PCI to subtotal distal LCx with single MAUREEN 1/3 --80% small distal LAD disease - medically manage Preserved LV function - mild inferolateral hypokinesis on ECHO with Mild mitral regurgitation Now CP free, some nausea residual Trend trop to peak-last at 3290 Lipids with elevated TGs 350, but controlled LDL 58, low HDL 27 HgbA1C controlled at 6.7% Continue DAPT with ASA/Ticagrelor Increase lisinopril to 20mg BID (home 40mg daily). 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 at 1.2-1.3 but was also recently placed on aldactone and uptitrated ACEi -Avoid nephrotoxins -renally dose meds when appropriate -follow BMP (4) Hypertension: Plan: BPs elevated but now improved continue metoprolol,aldactone, lisinopril (5) Diabetes mellitus type 2 in obese: Plan: A1C well controlled at 6.7% COntinue basal and bolus insulin here on Trulicity at home-on hold (6) Dyslipidemia: Plan: now on atorvastatin (7) Vitamin D deficiency: Plan: severely low on last check on Vit D once weekly 50k units as outpt (8) Peripheral neuropathy: Plan: continue home gabapentin 900mg po tid (9) Glaucoma: Plan: continue home eye drops (10) Hyponatremia: Plan: improved, Na+ 131 on admission and now 134 could be SIADH from SSRI follow BMP (11) Depression: Plan: continue home Celexa, Seroquel, ativan (12) Sleep apnea: Plan: continue CPAP (13) Overactive bladder: Plan: continue home meds, methanamine Plan DVT proph-add SCDs Dispo- continued stay, downgrade to PCU Admission and Anticipated Discharge Date Admission Date: March 18, 2023 Subjective Pt having some nausea but no chest pain or SOB. Moved her bowels today. No events on tele-NSR SHe is in disbelief that she had a VT. Physical Exam Constitutional: WD/WN, vitals as above ENMT: external ear and nose normal, oropharynx normal (bottom lip large-her baseline) Neck: trachea midline, no thyromegaly Respiratory: normal respiratory effort, lungs clear to auscultation Cardiovascular: RRR, no murmur, no edema Chest (Breasts): Chest: normal inspection of chest Gastrointestinal (Abdomen): normal bowel sounds, soft, nontender, no hepatosplenomegaly Musculoskeletal: Extremities: extremities normal to inspection; no cyanosis and no clubbing Skin: no rashes, warm and dry Neurologic: moves all extremities and awake; no focal motor deficits Psychiatric: A+Ox3, euthymic affect Lymphatic: no lymphedema Results & Data Results & Data Vital Signs (Past 12 Hours) Vital Signs Temp Pulse Pulse Resp BP BP Pulse Ox 03/19/23 13:03 90 23 96 03/19/23 13:03 137/70 03/19/23 13:00 91 H 17 94 03/19/23 12:00 86 20 94 03/19/23 11:00 88 14 95 03/19/23 10:00 90 19 95 03/19/23 08:00 03/19/23 08:00 94 H 03/19/23 08:00 36.5 C 97 H 17 163/79 H 97 03/19/23 06:00 36.6 C 93 H 18 164/87 H 96 03/19/23 05:30 94 H 15 97 03/19/23 05:24 166/112 H 03/19/23 05:24 93 H 12 98 03/19/23 05:00 87 16 93 03/19/23 04:30 86 14 98 03/19/23 04:25 177/88 H 03/19/23 04:25 88 15 97 03/19/23 04:00 86 17 99 03/19/23 04:00 36.6 C 87 18 177/88 H 97 O2 Del Method 03/19/23 13:03 03/19/23 13:03 03/19/23 13:00 03/19/23 12:00 03/19/23 11:00 01/04/24 10:00 03/19/23 08:00 Room Air 03/19/23 08:00 03/19/23 08:00 Room Air 03/19/23 06:00 Room Air 03/19/23 05:30 03/19/23 05:24 03/19/23 05:24 03/19/23 05:00 03/19/23 04:30 03/19/23 04:25 03/19/23 04:25 03/19/23 04:00 03/19/23 04:00 Room Air Laboratory Results CBC, BMP, troponins, lipid panel, TSH, HgbA1C reviewed PG Care Time/CCT Total # of Minutes Spent Total Time Spent with Patient: Total time spent is greater than 50% in coordination of care (as documented) at patient's floor/unit and/or counseling patient: Coding Level of Care Code 94354 SUB INP/OBS CARE 3/50MIN Diagnoses STEMI (ST elevation myocardial infarction) I21.3 CAD (coronary artery disease) I25.10 Chronic kidney disease, stage 3a N18.31 Primary hypertension I10 Hypertension type: primary hypertension Diabetes mellitus type 2 in obese E11.69; E66.9 Dyslipidemia E78.5 Vitamin D deficiency E55.9 Polyneuropathy associated with underlying disease G63 Peripheral neuropathy type: polyneuropathy associated with underlying disease Glaucoma H40.9 Hyponatremia E87.1 Depression F32.9 Sleep apnea G47.30 Overactive bladder N32.81 (4) Hypertension Hypertension type: primary hypertension Qualified Code(s): I10 - Essential (primary) hypertension (8) Peripheral neuropathy Peripheral neuropathy type: polyneuropathy associated with underlying disease Qualified Code(s): G63 - Polyneuropathy in diseases classified elsewhere
[2023-03-19] MEDS ORDERED: QUEtiapine FUMARATE 25 MG TABLET PO SCH (21:00)
[2023-03-19] MEDS: SPIRONOLACTONE 25 MG TAB PO SCH (21:54)
[2023-03-20 06:15] LABS: Basophils # (auto) 0.05 K/uL (0.00-0.20); Basophils % (auto) 0.6 %; Eosinophils # (auto) 0.48 K/uL (0.00-0.50); Eosinophils % (auto) 6.2 %; Hematocrit (blood only) 34.5 % (37.0-47.0); Hemoglobin 11.7 g/dl (12.0-16.0); Immature Granulocytes # (auto) 0.03 K/uL (0.01-0.20); Immature Granulocytes % (auto) 0.4 %; Lymphocytes # (auto) 1.63 K/uL (1.20-3.40); Lymphocytes % (auto) 21.1 %; Mean Corpuscular Hemoglobin 28.3 pg (25.0-34.0); Mean Corpuscular Hgb Conc 33.9 g/dL (32.0-36.0); Mean Corpuscular Volume 83.3 fL (80.0-100.0); Mean Platelet Volume 8.7 fL (9.4-12.4); Monocytes # (auto) 0.66 K/uL (0.11-0.59); Monocytes % (auto) 8.6 %; Neutrophils # (auto) 4.86 K/uL (1.40-6.50); Neutrophils % (auto) 63.1 %; Platelet Count 211 K/uL (130-400); RDW Coefficient of Variation 14.2 % (11.5-14.5); Red Blood Count 4.14 M/uL (4.20-5.40); White Blood Count 7.71 K/ul (4.8-10.8)
[2023-03-20 06:45] LABS: BUN Creatinine Ratio 25.8 (10-20); Calcium 9.2 mg/dl (8.6-10.3); Creatinine Clr Calc Pharmacy 34.8 ml/min; Est GFR (African American) 45.3 ml/min; Est GFR (Non-African American) 39.1 ml/min; Magnesium 2.1 mg/dl (1.7-2.4); Phosphorus 3.8 mg/dl (2.5-4.9); Potassium 4.8 mmol/L (3.5-5.1)
[2023-03-20] MEDS: POLYETHYLENE (MIRALAX) 17 GM PACK PO SCH (08:51)
[2023-03-20] MEDS: ASPIRIN 81 MG ECTAB PO SCH (08:51)
[2023-03-20] MEDS: OXYBUTYNIN CHLORIDE XL 5 MG TABCR PO SCH (08:51)
[2023-03-20] MEDS: SPIRONOLACTONE 25 MG TAB PO SCH (08:51)
[2023-03-20] MEDS: CITALOPRAM 20 MG TAB PO SCH (08:51)
[2023-03-20] MEDS: METHENAMINE HIPPURATE 1 GM TAB PO SCH (08:51)
[2023-03-20] MEDS: ATORVASTATIN 40 MG TAB PO SCH (08:51)
[2023-03-20] MEDS: TICAGRELOR 90 MG TAB PO SCH (08:51)
[2023-03-20] MEDS: GABAPENTIN 800 MG TAB PO SCH ×2 (08:51→14:55)
[2023-03-20] MEDS: INSULIN ASPART PER UNIT CHARGE SC SCH ×2 (08:52→12:09)
[2023-03-20] MEDS: GABAPENTIN 100 MG CAP PO SCH ×2 (08:54→14:54)
[2023-03-20] MEDS: LANTUS PER UNIT CHARGE SQ SCH (08:54)
[2023-03-20] MEDS: lisinopril 20 MG TAB PO SCH (08:55)
[2023-03-20] MEDS: METOPROLOL TARTRATE 25 MG TAB PO SCH ×2 (08:55→14:54)
[2023-03-20] MEDS: PSYLLIUM or GUAR GUM FIBER POWDER PACKET PO SCH (08:56)
[2023-03-20] MEDS: TIMOLOL MALEATE 0.5% OP SOLN 5 ML BTL OP SCH (08:58)
[2023-03-20 10:00] LABS: Appearance Urine Slightly Cloudy (Clear); Bilirubin Urine Negative (Negative); Blood Urine Trace-intact (Negative); Color Urine Yellow; Glucose Urine UA Negative (Negative); Ketones Urine Negative (Negative); Leukocyte Esterase Urine 1+ (Negative); Nitrite Urine Negative (Negative); Protein Urine 2+ (Negative); Urobilinogen Urine Negative (Negative); pH Urine 5.5 (4.5-7.5)
[2023-03-20 10:12] LABS: Epithelial Cell Urine 20-30 /lpf (0-5)
[2023-03-20 10:13] LABS: Bacteria Urine 4+ (Negative); RBC Urine 0-4 /hpf (0-4); WBC Urine >30 /hpf (0-5)
[2023-03-20 10:14] LABS: Hyaline Casts Urine 0-5 /lpf (0-5)
--- NOTE | 2023-03-20 10:33 | Cardiology Progress Note ---
Date of Service March 20, 2023 Assessment & Plan (1) CAD (coronary artery disease): Plan: --PCI to subtotal distal LCx with single MAUREEN / --80% small distal LAD disease - medically manage 2. Preserved LV function - mild inferolateral hypokinesis 3. Mild mitral regurgitation. 5. Type 2 DM 6. Hypertension 7. Stage III CKD Chest pain free. Troponin peaked Hemodynamically and electrically stable No apparent access site complications. From a cardiac standpoint okay with discharge today. Home on: -- DAPT with ASA/Ticagrelor -- Metoprolol 50 mg twice daily Home lisinopril 40 mg -- Spironolactone to 25mg BID -- Current atorvastatin Continue PPI Will arrange follow-up with me in 2 weeks. Admission and Anticipated Discharge Date Admission Date: March 18, 2023 Subjective Chest pain-free today. Feeling well. No other new concerns Telemetry reviewedno events Review of Systems Review of Systems: All systems reviewed & are unremarkable except as noted in HPI & below Physical Exam Physical Exam: General: Comfortable HEENT: Sclerae anicteric Lungs: Lung sounds distant Cardiac: Regular rate and rhythm, 2 out of 6 holosystolic murmur at apex. Vascular: 2+ RT radial. Minimal ecchymosis. No hematoma. Intact distal sensation/cap refill. Abdomen: Soft, nontender Extremities: Well perfused, no peripheral edema Neuro: Nonfocal Psych: Alert orient x3, normal affect and mood Results & Data Vital Signs (Past 12 Hours) Vital Signs Temp Pulse Pulse Resp BP Pulse Ox Pulse Ox 03/20/23 08:00 87 03/20/23 07:40 98.4 F 96 H 18 130/61 94 03/20/23 03:19 98.2 F 86 18 139/59 L 93 03/19/23 23:32 81 03/19/23 23:13 80 15 98 03/19/23 23:00 96 03/19/23 23:00 98.4 F 80 18 162/73 H 96 O2 Del Method O2 Del Method O2 Flow Rate 03/20/23 08:00 03/20/23 07:40 Room Air 03/20/23 03:19 Room Air 03/19/23 23:32 03/19/23 23:13 3 03/19/23 23:00 Room Air 03/19/23 23:00 Room Air PG Care Time/CCT Total # of Minutes Spent Total Time Spent with Patient: Total time spent is greater than 50% in coordination of care (as documented) at patient's floor/unit and/or counseling patient: Coding Level of Care Code 77448 SUB INP/OBS CARE 3/50MIN Diagnoses CAD (coronary artery disease) I25.10
--- NOTE | 2023-03-20 11:45 | Pharmacy Report ---
Pharmacy Glycemic Short Note 2 - Date of Service March 20, 2023 - Glycemic Short BSG Results (Last 24 hours): 03/19/23 03/19/23 03/19/23 11:48 16:03 20:08 Glucose POC Glucose 156 H 189 H 157 H 03/20/23 03/20/23 03/20/23 06:00 07:02 11:07 Glucose 130 H POC Glucose 138 H 218 H OUTPATIENT ANTIDIABETIC REGIMEN: * Lantus 8 units SC Daily * Humalog SSI * Per most recent diabetes visit: 3 units SC with meals + 3 units for every 50 mg/dL over 200 mg/dL * Trulicity 3 mg SC once weekly * HbA1c: 6.7% (03/19/23) ASSESSMENT: 03/20: * Stefany received 13 units of insulin yesterday, 5 basal + 8 bolus. BSGs were 494-052-113-157 mg/dL. * Loosened Novolog yesterday when informed that lunch BSG was after eating and seeing a repeat of 83 mg/dL. Since then patient's PO intake has improved and BSGs are trending up. Therefore, will tighten Novolog this afternoon. * Fasting of 138 mg/dL is at goal but suspect 5 units of basal will not be adequate to keep patient at goal. Therefore, will increase basal starting tomorrow morning. 03/19: * 77 yo F admitted on 03/18/23 secondary to STEMI and is now s/p PCI w/ one MAUREEN. Pharmacy has been consulted to assist with inpatient glycemic management. Patient is a Type 2 diabetic as an outpatient. Please refer to outpatient regimen and most recent HbA1c above. * BSGs last night were 129-151 mg/dL. Fasting BSG well controlled at 121 mg/dL. * Will start with Lantus 5 units today and see how patient tolerates. Expect diet to be less significant inpatient. Currently tolerating a T2DM diet postoperatively. * Novolog will be started based on weight and stress of 2. Will tighten goal range today to target all BSGs less than 180 mg/dL. PLAN FOR INPATIENT GLYCEMIC CONTROL: * Hold outpatient GLP1RA * Basal insulin * Lantus 7 units SC daily * Bolus insulin * NovoLog per scale ACHS or Q6hrs while NPO * Goal Range: Low 110 mg/dL - High 140 mg/dL * Correction Factor: 35 mg/dL/unit * Nutritional / Prandial insulin per carb ratio of 1 unit per 12 grams CHO consumed
--- NOTE | 2023-03-20 13:45 | Discharge Summary ---
Discharge Summary Date of Service March 20, 2023 Notes For Next Care Provider Follow up with Cardiology in 2 weeks. Medication Changes From Visit Added Brilinta 90mg po bid Added metoprolol 50mg po bid Added atorvastatin 40mg po qAM Decreased aldactone to 25mg po bid Admission HPI Per Admitting Provider The patient is a 77-year-old female with a past medical history including CKD stage III AA, vitamin D deficiency, diabetic nephropathy, diabetes mellitus type 2, small bowel enteritis, lumbar spinal stenosis, hypertension, statin myopathy, dyslipidemia and peripheral neuropathy. She presented to the emergency department with above symptoms, and underwent assessment as a heart alert. She was seen by interventional cardiology Dr. Arnie Martinez, was taken directly from the ED to the cardiac catheterization lab, where she underwent single MAUREEN for a 99% circumflex lesion. She was then seen postprocedure in the ICU, resting comfortably, without chest pain or shortness of breath. Principal Dx & Hospital Course #1 = Principal Diagnosis (1) STEMI (ST elevation myocardial infarction): P/w CP, nausea for 2-3 hours, with inferior ST elevations on ECG, elevated trop, called as a heart alert in ER Cath with PCI to subtotal distal LCx with single MAUREEN 1/ --80% small distal LAD disease - medically manage Preserved LV function - mild inferolateral hypokinesis on ECHO with Mild mitral regurgitation Now CP free, no arrhythmias on tele monitoring, doing well Trop peaked at 3290 Lipids with elevated TGs 350, but controlled LDL 58, low HDL 27 HgbA1C controlled at 6.7% Continue DAPT with ASA/Ticagrelor Continue home lisinopril 40mg daily Decreased spironolactone to 25mg BID Added metoprolol 50mg po bid Added atorvastatin 40mg daily-tolerating well so far-watch for myalgias as has h/o statin myopathy F/u with Cardiology in 2 weeks after discharge Continue good DM control (2) CAD (coronary artery disease): as above, severe (3) Chronic kidney disease, stage 3a: 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 or slightly above baseline at 1.2-1.3 but was also recently placed on aldactone recently -Avoid nephrotoxins -renally dose meds when appropriate -follow BMP as outpt with Nephrology (4) Hypertension: BPs were elevated but now improved continue metoprolol, aldactone, lisinopril (5) Diabetes mellitus type 2 in obese: A1C well controlled at 6.7% COntinue basal and bolus insulin, Trulicity on discharge follows with [facility] (6) Dyslipidemia: now on atorvastatin (7) Vitamin D deficiency: severely low on last check on Vit D once weekly 50k units as outpt (8) Peripheral neuropathy: continue home gabapentin 900mg po tid (9) Glaucoma: continue home eye drops (10) Hyponatremia: improved, Na+ 131 on admission and now 135 could be SIADH from SSRI but is improved follow BMP as outpt (11) Depression: continue home Celexa, Seroquel, ativan watch for worsening mood post-KS follow with PCP (12) Sleep apnea: continue CPAP (13) Overactive bladder: Pt with painful urination on day of discharge but is due to ulcerations in right labia from [place] catheter UA was collected by nursing but is contaminated with epi cells and is not indicated to treat Recommend discontinuation of anticholinergic due to h/o recurrent UTI--> she will discuss with PCP and/or Urology continue methanamine for UI prevention Urine cx is pending at time of discharge but no need to treat even if grows bacteria because she is likely colonized with E. coli Plan DVT proph-SCDs Dispo- dc to [facility] Discharge Exam Constitutional WD/WN, vitals as above ENMT external ear and nose normal, oropharynx normal (bottom lip large-her baseline) Neck trachea midline, no thyromegaly Respiratory normal respiratory effort, lungs clear to auscultation Cardiovascular RRR, no murmur, no edema Chest (Breasts) Chest: normal inspection of chest Gastrointestinal (Abdomen) normal bowel sounds, soft, nontender, no hepatosplenomegaly Musculoskeletal Extremities: extremities normal to inspection; no cyanosis and no clubbing Skin no rashes, warm and dry Neurologic moves all extremities and awake; no focal motor deficits Psychiatric A+Ox3, euthymic affect Genitourinary right labia wiht painful to the touch small ulcerations Lymphatic no lymphedema Updated Medication List Medication Instructions Recorded Confirmed Type fluorometholone 0.1 % eye 1 drp OPB QAM 11/26/17 02/24/23 History drops,suspension glucose 4 gram chewable tablet 1 tab PO UD HYPOGLYCEMIA 11/26/17 02/24/23 History omeprazole 20 mg capsule,delayed 20 mg PO QAM 11/26/17 02/24/23 History release polyethylene glycol 3350 17 gram 17 g PO QAM 11/26/17 02/24/23 History oral powder packet quetiapine 50 mg tablet 50 mg PO HS 11/26/17 02/24/23 History timolol 0.5 % eye drops 1 drp OPB QAM 11/26/17 02/24/23 History tolterodine 2 mg tablet 2 mg PO BID 11/26/17 02/24/23 History acetaminophen 325 mg tablet 650 mg PO Q6H PRN Fever Or Pain 06/12/18 02/24/23 History (Tylenol) citalopram 20 mg tablet (Celexa) 20 mg PO QAM 06/12/18 02/24/23 History diclofenac sodium 1 % topical gel 2 g topical QID PRN Pain 10/12/20 02/24/23 History insulin lispro 100 unit/mL 0 - 12 unit subcut UD 10/12/20 02/24/23 History subcutaneous pen (Humalog KwikPen (U-100) Insulin) aspirin 81 mg tablet,delayed 81 mg PO DAILY 03/27/21 02/24/23 History release (Adult Aspirin Regimen) menthol 0.44 %-zinc oxide 20.6 % 1 applic topical BID PRN skin 07/23/21 02/24/23 Rx topical ointment in packet irritation #504 grams (Calmoseptine) vit C,B-Qt-rqcma-lutein-zeaxan 1 cap PO BID 05/05/22 02/24/23 History [PreserVision AREDS-2] ketoconazole 2 % topical cream 1 applic topical BID #30 grams 11/24/22 02/24/23 Rx nystatin 100,000 unit/gram topical 1 applic topical .COMPLEX PRN 11/24/22 02/24/23 History cream gabapentin 100 mg capsule 100 mg PO TID 01/12/23 02/24/23 History gabapentin 800 mg tablet 800 mg PO TID 01/12/23 02/24/23 History lisinopril 40 mg tablet 40 mg PO DAILY #30 tabs 01/12/23 02/24/23 Rx pen needle, diabetic, safety 30 #100 ea 01/12/23 02/24/23 History gauge x 1/3" (Novofine Autocover) loperamide 2 mg capsule (Imodium 2 mg PO Q6H PRN loose stool #60 01/21/23 02/24/23 Rx A-D) caps terbinafine HCl 250 mg tablet 250 mg PO DAILY #14 tabs 01/21/23 02/24/23 Rx psyllium husk 0.4 gram capsule 0.4 g PO DAILY 02/03/23 02/24/23 History (Metamucil) methenamine hippurate 1 gram tablet 1 g PO Q12H #180 tabs 02/12/23 02/24/23 Rx insulin glargine 100 unit/mL (3 8 unit (0.08 mL) subcut DAILY #15 02/13/23 02/24/23 Rx mL) subcutaneous pen (Lantus mL Solostar U-100 Insulin) ergocalciferol (vitamin D2) 1,250 50,000 unit PO WEEKLY #12 caps 02/24/23 02/24/23 Rx mcg (50,000 unit) capsule spironolactone 50 mg tablet 50 mg PO BID #60 tabs 02/25/23 Rx lorazepam 0.5 mg tablet 0.5 mg PO DAILY PRN anxiety #30 03/04/23 Rx tabs dulaglutide 3 mg/0.5 mL 3 mg (0.5 mL) subcut ONCE #2 mL 03/17/23 Rx subcutaneous pen injector (Trulicity) atorvastatin 40 mg tablet 40 mg PO QAM #30 tabs 03/20/23 Rx metoprolol tartrate 50 mg tablet 50 mg PO BID #60 tabs 03/20/23 Rx spironolactone 25 mg tablet 25 mg PO BID #60 tabs 03/20/23 Rx ticagrelor 90 mg tablet (Brilinta) 90 mg PO BID #60 tabs 03/20/23 Rx Hospital Stay Data Consultations 03/18/23 22:07 Consult Building Supplies Salesperson Retail Routine Procedures Performed Operation Date: 03/18/23 20:45 Actual Procedures s Cineradiography w/Routine Exam - Arnie Martinez MD p Aspiration/PCI w/MAUREEN for Stemi - Arnie Martinez MD s Cath, Left with Cors and Vent - Arnie Martinez MD Diagnostic Imagining Performed 03/18/23 20:40 CL Cath Imgs for PACS use only Stat ECHO Pending Results Patient Have Any Pending Studies at Discharge: Yes (Urine culture but no need to treat as is asymptomatic) Discharge Instructions Given to Patient (Per Discharging Provider) Home Care: * Take your medications exactly as directed. Don't skip doses. * Remember that recovery after a heart attack takes time. Plan to rest for at lease 4-8 weeks while you recover. Then return to normal activity when your doctor says it's okay. * Ask your doctor about joining a heart rehabilitation program. * Tell your doctor if you are feeling depressed. Feelings of sadness are common after a heart attack, but it is important that you speak to someone if you are feeling overwhelmed by these feelings. * If you are having chest pain, call 911 for an ambulance. Do NOT drive yourself to the hospital. * Ask your family members to learn CPR. * Learn to take your own blood pressure and pulse. Keep a record of your results. Ask your doctor when you should seek emergency medical attention. He or she will tell you which blood pressure reading is dangerous. Lifestyle Changes: * Maintain a healthy weight. Get help to lose any extra pounds. * Cut back on salt. * Limit canned, dried, packaged, and fast foods. * Don't add salt to your food. * Season foods with herbs instead of salt when you cook. * Break the smoking habit. Enroll in a stop-smoking program to improve your chances of success. * Limit fatty foods. * Ask your doctor about having your lipid levels checked regularly. * Build up your activity according to your doctor's recommendation. * Ask your doctor when it's okay to resume sexual activity. * Tell your doctor about any erectile dysfunction (ED) medication you are taking. Some ED medications are not safe if you take certain heart medications. * Try to manage stress. Follow Up: It is important for you to keep your follow up appointments with your medical provider. ACTIVITY RECOMMENDATIONS: Excess manipulation of the wrist should be avoided for the next 24-48 hours. * No lifting over 2 pounds (approximately a 1/2 gallon of milk) with the utilized arm for 24 hours. * No strenuous activity such as bowling or tennis for 3 days. * Keep the site of the procedure covered with a bandage for 24 hours. *You may shower the day after the procedure. Do not take a tub bath or submerge the puncture site in water for the next 3 days. *Do not operate any motorized equipment for 3 days. SPECIAL CARE INSTRUCTIONS: The site may be slightly bruised and sore following your procedure. Should any of the following occur, contact the Dr. who performed your procedure. 1. Redness/inflammation, swelling, chills, or fever, or colored drainage at procedure site within 3-7 days after your procedure. 2. Coldness, discoloration, ongoing numbness, severe pain, or swelling. Expect mild tingling of hand and tenderness at the puncture site for up to three days. If this persists beyond three days, or other symptoms develop, notify the Dr. who performed your procedure. BLEEDING: If the procedure site on your wrist begins to bleed, do not panic 1. Place 1 or 2 fingers firmly just slightly above the insertion site to stop the bleeding. You may be able to feel your pulse as you hold pressure. 2. Lift your finger after 5 minutes to see if the bleeding has stopped. 3. Once the bleeding has stopped, gently wipe the wrist area clean with a bandage. * If the bleeding from your wrist does not stop after 10 minutes, or if there is a large amount of bleeding or spurting, call 911 (do not drive yourself to the hospital). SKIN IRRITATION: * You may experience some redness and/or swelling in the area where radiation was administered. If any skin irritation occurs, please contact your family physician. FOLLOW UP VISIT: Keep any scheduled doctor appointments. Total Time Total Time Spent Total Time Spent (In Minutes): 45 min Coding Level of Care Code 35259 INP/OBS DISCH >30 MIN Diagnoses STEMI (ST elevation myocardial infarction) I21.3 CAD (coronary artery disease) I25.10 Chronic kidney disease, stage 3a N18.31 Primary hypertension I10 Hypertension type: primary hypertension Diabetes mellitus type 2 in obese E11.69; E66.9 Dyslipidemia E78.5 Vitamin D deficiency E55.9 Polyneuropathy associated with underlying disease G63 Peripheral neuropathy type: polyneuropathy associated with underlying disease Glaucoma H40.9 Hyponatremia E87.1 Depression F32.9 Sleep apnea G47.30 Overactive bladder N32.81
[2023-03-21] MEDS ORDERED: LANTUS PER UNIT CHARGE SQ SCH (09:00)
== END 2023-03-20 15:57 | disposition home or self-care (01) | DRG 322 ==
LOC: ED 20:31 → 1E 21:08 → OR 21:08 → 1E 22:07 → SUATTDRO 22:07 → 2E 03-19 17:20

== ENCOUNTER 2023-05-09 17:50 | Observation (INO) ==
--- NOTE | 2023-05-09 18:09 | Emergency Department Note ---
Impression & Plan Chest pain, Anemia, History of CAD (coronary artery disease) ED Provider Note NAME: SHENG SINGH AGE: 77 SEX: F : 1945 ARRIVES VIA: Ambulance INFORMANT: Patient, ED PROVIDER(S): Uli Frausto MD CHIEF COMPLAINT: Chest pain MEDICAL DECISION MAKING: Patient presents due to concern for chest pain. IV was established and blood work was obtained. The patient presents in the setting of recent CAD status post stent placement and did have improvement with aspirin and nitro. Initial EKG is unremarkable. The patient does not have any significant chest pain at this time. Patient has a normal white count mild anemia hemoglobin of 10 with a normal platelet count. The patient's kidney function was unremarkable. Initial troponin 11.9. Repeat was obtained. The patient did have a recurrence of chest pain repeat EKG was obtained which does show a potential new T wave version in V3. Patient did receive additional nitro and the patient was noted to be hypertensive. Patient did have improvement in her symptoms. I did speak with the on-call hospitalist service Dr. Gomez and the patient was admitted to the medicine service. Discussion w/ other healthcare providers: Dr. Gomez inpatient medicine service Prior /Outside records reviewed: I reviewed discharge summary from Dr. Tracy from March 20, 2023. Patient with known history of CKD stage III vitamin D deficiency diabetic nephropathy DM2 hypertension hyperlipidemia peripheral neuropathy. Patient had presented due to concern for chest pain was seen by Dr. Martinez went to [facility] and did have a single drug-eluting stent for 99% circumflex lesion. Patient had a STEMI at that time was chest pain-free. Trope peaked at 30-90. Patient to continue dual antiplatelet therapy. Patient's echo on March 19 showed normal LV size mild concentric LVH with asymmetric basal septal hypertrophy with an LVEF of 55 to 60% with mild basal posterior and lateral hypokinesis Differential diagnosis: Cardiac ischemia, aortic dissection, pulmonary embolism, pneumothorax, pneumonia, pericarditis, myocarditis, GERD, cholecystitis, pancreatitis, musculoskeletal, as well as other pathologies were considered. Diagnostics, as interpreted by me: ECG: Normal sinus rhythm, rate of 87, normal KS, wide QRS, right bundle branch block pattern, T wave version in lead III. No ST elevations. Repeat EKG interpreted by myself Normal sinus rhythm, rate of 84, normal KS, wide QRS, right bundle branch block pattern, T wave version in lead III and V3. V3 T wave version may be new from comparison completed earlier during the patient stay. Cardiac monitoring: An order was placed for continuous cardiac monitoring. The monitor shows a rate of 88 with sinus rhythm. Patient was placed on pulse oximetry Medical decision rules: None Imaging studies: I informally interpreted the patient's chest x-ray which does not show obvious pneumonia or pneumothorax with formal report to follow. HPI: Patient presents due to concern for chest pain that began around 2 in the afternoon that has been off and on in duration but has lasted as long as an hour. Patient describes it as sharp moving to the bilateral arms. The patient did have some nausea. The patient did have a recent cardiac cath and stent placement completed last month. The patient states she has been compliant with her medications. Patient denies any falls or trauma. No cough or fever. Patient has any leg swelling or calf pain. Patient did receive baby aspirin and nitro in route which resolved her symptoms. I did speak it was about 4 out of 10 currently about 1. PAST MEDICAL HISTORY: See Below PAST SURGICAL HISTORY: See Below SOCIAL HISTORY: See Below HOME MEDICATIONS: See Below ALLERGIES: See Below VITALS: See Below PHYSICAL EXAMINATION: GENERAL: NAD, non-toxic. EYE EXAM: Normal conjunctiva. PERRL, no anisocoria and EOM's grossly intact w/o pain. OROPHARYNX: Moist mucus membranes, grossly normal dentition. NECK: Trachea midline, no stridor. Supple, no nuchal rigidity, no adenopathy, non-tender. No signs of meningismus. FROM of the neck with good chin to chest and neck extension. LUNGS: Clear to auscultation. Normal chest wall mechanics. HEART: NSR, no MRG. ABDOMEN: Abdomen soft, non-tender, no masses, no rebound or guarding. BACK: No CVA TTP. SKIN: No rashes and no bruising. UPPER EXTREMITIES: Upper extremities are grossly normal. LOWER EXTREMITIES: Grossly normal, no edema. Negative Homans' sign bilaterally. Wearing glasses NEURO EXAM: A&O x3, cranial nerves II-XII grossly intact, normal speech, moves all 4 extremities. Past Med/Surg History Medical History STEMI (ST elevation myocardial infarction) Overactive bladder Proteinuria Glaucoma History of recurrent UTI (urinary tract infection) Insomnia Per records Neuropathy per patient- hands and feet Depression Per records Hypertension Per records History of macular degeneration Chronic back pain GERD (gastroesophageal reflux disease) hx Diabetes mellitus, type 2 IDDM Sleep apnea cpap nightly with 3lpm of oygen Spinal stenosis of lumbar region Neurogenic claudication due to lumbar spinal stenosis History of nephrolithiasis Nasal bone fracture Cholecystitis, acute Surgical History Status post spinal surgery History of bilateral tubal ligation Hx of total knee arthroplasty bilateral S/P epidural steroid injection History of cholecystectomy History of colonoscopy History of cornea transplant bilateral History of cataract surgery bilateral History of appendectomy Family History Mother Breast cancer Aunt Colorectal cancer Diabetes Father Myocardial infarction Other No family history of adverse response to anesthesia No pertinent family history Denies family history of Ovarian cancer Prostate cancer Social History Smoking Status: Former smoker Tobacco Type: Cigarettes Cigarettes Per Day: 2 packs/day; Second Hand Exposure: No; Do You Dip or Chew Tobacco: No; Hx Alcohol Use: No Hx Substance Use: No Preferred Language: [place]an Communication Ability: Effective Visual Impairment: No Limitations Hearing Ability: Normal Security Guard Required: No Beliefs That Will Affect Care: None marital status: Current Living Situation: Personal Care Facility Current Living Situation Comment: [facility] current occupational status: retired current occupation: Retired How many Children do You have: 2 Feels Safe at Home: Yes Childhood Exposure to Second-Hand Smoke: No Diet: regular caffeine: No during the past year weight has: remained stable Dental Care, Regularly: Yes Physical Activity Frequency: Does not Exercise Seatbelt Use: always Sunscreen Use: Yes Assistive Devices: Walker Allergies Allergies Allergy/AdvReac Type Severity Reaction Status Date / Time latex Allergy Mild ON [facility] Verified 05/09/23 18:27 LIST-per patient- thinks rash niacin Allergy Unknown ON [facility] Verified 05/09/23 18:27 [From [facility] LIST Extended-Release] simvastatin Allergy Unknown ON Verified 05/09/23 18:27 [facility] LIST- unsure Home Meds Home Medications Medication Instructions Recorded Confirmed glucose 4 gram chewable tablet 1 tab PO UD PRN HYPOGLYCEMIA 11/26/17 05/09/23 omeprazole 20 mg capsule,delayed 20 mg PO QAM 11/26/17 05/09/23 release polyethylene glycol 3350 17 gram 17 g PO QAM 11/26/17 05/09/23 oral powder packet quetiapine 50 mg tablet 50 mg PO HS 11/26/17 05/09/23 timolol 0.5 % eye drops 1 drp OPB QAM 11/26/17 05/09/23 tolterodine 2 mg tablet 2 mg PO BID 11/26/17 05/09/23 acetaminophen 325 mg tablet 650 mg PO Q6H PRN Fever Or Pain 06/12/18 05/09/23 (Tylenol) insulin lispro 100 unit/mL 3 unit subcut TID 10/12/20 05/09/23 subcutaneous pen (Humalog KwikPen (U-100) Insulin) nystatin 100,000 unit/gram topical 1 applic topical BID PRN RASH IN 11/24/22 05/09/23 cream ABD FOLDS NEEDED pen needle, diabetic, safety 30 #100 ea 01/12/23 05/06/23 gauge x 1/3" (Novofine Autocover) amoxicillin 500 mg capsule 2,000 mg PO DIRECTED PRN PRIOR 05/09/23 05/09/23 TO DENTAL PROCEDURES citalopram 20 mg tablet 20 mg PO QAM 05/09/23 05/09/23 fluorometholone 0.1 % eye 1 drp ophthalmic (eye) DIRECTED 05/09/23 05/09/23 drops,suspension hydrocortisone 1 % topical cream 1 applic topical BID PRN Rash 05/09/23 05/09/23 insulin glargine 100 unit/mL (3 8 unit subcut QAM 05/09/23 05/09/23 mL) subcutaneous pen (Lantus Solostar U-100 Insulin) lisinopril 40 mg tablet 40 mg PO QAM 05/09/23 05/09/23 lorazepam 0.5 mg tablet 0.5 mg PO DAILY PRN Anxiety 05/09/23 05/09/23 lorazepam 0.5 mg tablet 0.5 mg PO HS anxiety 05/09/23 05/09/23 psyllium husk 3.4 gram/5.4 gram 1 tsp PO DAILY 05/09/23 05/09/23 oral powder (Metamucil) vit C 250 mg-vit E 90 mg-zinc 40 1 tab PO BID 05/09/23 05/09/23 mg-copper 1 [id number] capsule (PreserVision AREDS-2) Previous Rx's Medication Instructions Recorded menthol 0.44 %-zinc oxide 20.6 % 1 applic topical BID PRN skin 07/23/21 topical ointment in packet irritation #504 grams (Calmoseptine) ketoconazole 2 % topical cream 1 applic topical BID #30 grams 11/24/22 loperamide 2 mg capsule (Imodium 2 mg PO Q6H PRN loose stool #60 01/21/23 A-D) caps methenamine hippurate 1 gram tablet 1 g PO Q12H #180 tabs 02/12/23 spironolactone 25 mg tablet 25 mg PO BID #60 tabs 03/20/23 magnesium citrate 150 ml PO DAILY PRN No BM x 2 days 03/26/23 #296 mL metoprolol tartrate 50 mg tablet 50 mg PO BID #60 tabs 04/08/23 ticagrelor 90 mg tablet (Brilinta) 90 mg PO BID #60 tabs 04/08/23 gabapentin 800 mg tablet 800 mg PO TID #90 tabs 04/17/23 dulaglutide 4.5 mg/0.5 mL 4.5 mg (0.5 mL) subcut ONCE #2 mL 05/06/23 subcutaneous pen injector (Trulicity) aspirin 81 mg tablet,delayed 81 mg PO QAM #30 tabs 05/10/23 release isosorbide mononitrate 30 mg 30 mg PO DAILY #30 tabs 05/10/23 tablet,extended release 24 hr Results & Data (ED) Vital Signs Vital Signs - 24 hr 05/09/23 18:01 05/09/23 18:02 05/09/23 18:09 Temperature 37.0 C Temperature Source Oral Pulse Rate 84 88 Pulse Rate [Right Finger] Respiratory Rate 19 Respiratory Effort / Characteristics Non-Labored Spontaneous Respiratory Depth Normal Blood Pressure 135/69 Blood Pressure [Right Arm] Blood Pressure Mean 91 Blood Pressure Mean [Right Arm] Pulse Oximetry 97 Oxygen Delivery Method Room Air Room Air Sepsis Recent Fever Within 48 Hours No Sepsis New/Unexplained Change in Mental Status No Sepsis Action Taken by Nursing No Action Required 05/09/23 18:58 05/09/23 19:31 05/09/23 20:20 Temperature Temperature Source Pulse Rate Pulse Rate [Right Finger] 86 85 84 Respiratory Rate 20 16 19 Respiratory Effort / Characteristics Non-Labored Respiratory Depth Normal Blood Pressure Blood Pressure [Right Arm] 163/90 H 175/84 H Blood Pressure Mean Blood Pressure Mean [Right Arm] 114 114 Pulse Oximetry 98 95 96 Oxygen Delivery Method Room Air Room Air Sepsis Recent Fever Within 48 Hours Sepsis New/Unexplained Change in Mental Status Sepsis Action Taken by Nursing 05/09/23 21:06 Temperature Temperature Source Pulse Rate Pulse Rate [Right Finger] 85 Respiratory Rate 20 Respiratory Effort / Characteristics Respiratory Depth Blood Pressure Blood Pressure [Right Arm] 150/97 H Blood Pressure Mean Blood Pressure Mean [Right Arm] 114 Pulse Oximetry 97 Oxygen Delivery Method Room Air Sepsis Recent Fever Within 48 Hours Sepsis New/Unexplained Change in Mental Status Sepsis Action Taken by Snf Medications Current Medication List: was personally reviewed by me Laboratory Data Attestation: I reviewed the patient's lab results. 05/10/23 06:37 05/10/23 06:37 Lab Results 05/09/23 05/09/23 Range/Units 17:45 19:57 WBC 5.23 (4.8-10.8) K/ul RBC 3.53 L (4.20-5.40) M/uL Hgb 10.3 L (12.0-16.0) g/dl Hct 31.0 L (37.0-47.0) % MCV 87.8 (80.0-100.0) fL MCH 29.2 (25.0-34.0) pg MCHC 33.2 (32.0-36.0) g/dL RDW Std Deviation 46.8 H (36.4-46.3) fL RDW Coeff of Brian 14.7 H (11.5-14.5) % Plt Count 228 (130-400) K/uL MPV 9.0 L (9.4-12.4) fL Immature Gran % (Auto) 0.4 % Neut % (Auto) 61.8 % Lymph % (Auto) 22.8 % [place] % (Auto) 10.3 % Eos % (Auto) 3.6 % Baso % (Auto) 1.1 % Neut # (Auto) 3.23 (1.40-6.50) K/uL Lymph # (Auto) 1.19 L (1.20-3.40) K/uL [place] # (Auto) 0.54 (0.11-0.59) K/uL Eos # (Auto) 0.19 (0.00-0.50) K/uL Baso # (Auto) 0.06 (0.00-0.20) K/uL Immature Gran # (Auto) 0.02 (0.01-0.20) K/uL Sodium 136 (136-145) mmol/L Potassium 4.3 (3.5-5.1) mmol/L Chloride 109 H (98-107) mmol/L Carbon Dioxide 19 L (21-32) mmol/L Anion Gap 8 (3-11) BUN 29 H (6-23) mg/dl Creatinine 0.98 (0.6-1.2) mg/dl Est Cr Clr Drug Dosing 49.2 ml/min Est GFR ( Amer) 64.9 ml/min Est GFR (Non-Af Amer) 56.0 ml/min BUN/Creatinine Ratio 29.6 H (10-20) Glucose 206 H (70-99(Fasting)) mg/dl Calcium 9.0 (8.6-10.3) mg/dl Total Bilirubin 0.4 (0.2-1.0) mg/dl AST 20 (13-39) U/L ALT 24 (7-52) U/L Alkaline Phosphatase 101 (34-104) U/L Troponin I High Sens 11.9 10.1 (0-14) pg/ml Total Protein 6.8 (6.0-8.3) gm/dl Albumin 3.8 (3.4-5.0) gm/dl Globulin 3.0 (2.5-4.0) gm/dl Albumin/Globulin Ratio 1.3 (0.9-2) Administered Medications Aspirin (Aspirin 81 Mg Ectab) 81 mg PO [facility] Stop: 06/09/23 08:59 Last Admin: 05/10/23 08:08 Dose: 81 mg Documented By: OLIVE Citalopram Hydrobromide (Citalopram 20 Mg Tab) 20 mg PO [facility] Stop: 06/09/23 08:59 Last Admin: 05/10/23 08:09 Dose: 20 mg Documented By: MM Gabapentin (Gabapentin 800 Mg Tab) 800 mg PO TID@0730,1500,2100 [facility] Stop: 06/09/23 07:29 Last Admin: 05/10/23 08:08 Dose: 800 mg Documented By: OLIVE Insulin Aspart (Insulin Aspart Per Unit Charge) 0 units SC ACHS [facility] Stop: 06/09/23 00:59 Last Admin: 05/10/23 13:22 Dose: 1 units Documented By: OLIVE Co-signed By: RAMAN Admin: 05/10/23 09:03 Dose: Not Given Documented By: Admin: 05/10/23 01:06 Dose: Not Given Documented By: MARTIN Insulin Glargine (Lantus Per Unit Charge) 8 units SQ DAILY [facility] Stop: 06/09/23 08:59 Last Admin: 05/10/23 09:11 Dose: 8 units Documented By: OLIVE Co-signed By: RAMAN Lisinopril ([facility] 40 Mg Tab) [facility] Stop: 06/09/23 08:59 Last Admin: 05/10/23 08:09 Dose: 40 mg Documented By: OLIVE Lorazepam (Lorazepam 0.5 Mg Tab) 0.5 mg PO DAILY PRN PRN Reason: Anxiety Stop: 06/08/23 23:25 Last Admin: 05/10/23 01:04 Dose: 0.5 mg Documented By: MARTIN Methenamine Hippurate (Methenamine Hippurate 1 Gm Tab) 1 gm PO BID@0730,2100 [facility] Stop: 06/09/23 07:29 Last Admin: 05/10/23 08:08 Dose: 1 gm Documented By: OLIVE Metoprolol Tartrate (Metoprolol Tartrate 50 Mg Tab) 50 mg PO BID@0730,2100 [facility] Stop: 06/09/23 07:29 Last Admin: 05/10/23 08:08 Dose: 50 mg Documented By: OLIVE Oxybutynin Chloride (Oxybutynin Chloride Xl 5 Mg Tabcr) 10 mg PO DAILY [facility] Stop: 06/09/23 08:59 Last Admin: 05/10/23 08:09 Dose: 10 mg Documented By: OLIVE Pantoprazole Sodium (Pantoprazole 40 Mg Tab) 40 mg PO QAM [facility] Stop: 06/09/23 08:59 Last Admin: 05/10/23 08:08 Dose: 40 mg Documented By: OLIVE Spironolactone (Spironolactone 25 Mg Tab) 25 mg PO BID17 [facility] Stop: 06/09/23 08:59 Last Admin: 05/10/23 08:08 Dose: 25 mg Documented By: OLIVE Ticagrelor (Ticagrelor 90 Mg Tab) 90 mg PO BID [facility] Stop: 06/09/23 08:59 Last Admin: 05/10/23 08:08 Dose: 90 mg Documented By: OLIVE Timolol Maleate (Timolol Maleate 0.5% Op Soln 5 Ml Btl) 1 drops OP QAM [facility] Stop: 06/09/23 08:59 Last Admin: 05/10/23 08:14 Dose: 1 drops Documented By: OLIVE Discontinued Medications Acetaminophen (Acetaminophen 500 Mg Tab) 1,000 mg PO NOW STA Stop: 05/09/23 21:00 Last Admin: 05/09/23 21:17 Dose: 1,000 mg Documented By: ASW Metoprolol Tartrate (Metoprolol Tartrate 50 Mg Tab) 50 mg PO NOW STA Stop: 05/09/23 21:21 Last Admin: 05/09/23 21:34 Dose: 50 mg Documented By: ASW Nitroglycerin (Nitroglycerin Sl 0.4 Mg/Tab Tab) 0.4 mg SL NOW STA Stop: 05/09/23 21:00 Last Admin: 05/09/23 21:17 Dose: Not Given Documented By: ASW Spironolactone (Spironolactone 25 Mg Tab) 25 mg PO NOW ONE Stop: 05/09/23 21:21 Last Admin: 05/09/23 21:34 Dose: 25 mg Documented By: ASW Ticagrelor (Ticagrelor 90 Mg Tab) 90 mg PO NOW STA Stop: 05/09/23 21:52 Last Admin: 05/09/23 22:23 Dose: 90 mg Documented By: ASW Imaging Data Radiologist's Impression: Chest X-Ray 05/09/23 18:01 SINGLE VIEW CHEST CLINICAL HISTORY: Atypical chest pain. FINDINGS: An AP, portable, upright chest radiograph is compared to study dated 03/18/2023 and correlated with chest CT dated 10/12/2013. The heart is enlarged noting atherosclerotic calcification of the thoracic aorta. The pulmonary vasculature is noncongested. There is bibasilar scarring/atelectasis. The lungs and pleural spaces are otherwise clear. No pneumothorax is seen. The skeletal structures are osteopenic. The bony thorax is grossly intact. IMPRESSION: Cardiomegaly with no acute cardiopulmonary abnormality identified. ACT 112: Negative or not required by law. Electronically signed by: Jose Fox M.D. 05/09/2023 7:41 PM Discharge Plan Visit Data Chief Complaint: Chest Pain ED Provider: Uli Frausto Discharge Problem: Chest pain, Anemia, History of CAD (coronary artery disease) Patient Disposition: Admitted As Inpatient Discharge Instructions Interventions: ED Discharge Assessment Last Done: 05/09/23 22:42 Discharge Problem: Chest pain Qualifiers: Chest pain type: unspecified Qualified Code(s): R07.9 - Chest pain, unspecified Anemia Qualifiers: Anemia type: unspecified type Qualified Code(s): D64.9 - Anemia, unspecified
[2023-05-09 18:25] LABS: Basophils # (auto) 0.06 K/uL (0.00-0.20); Basophils % (auto) 1.1 %; Eosinophils # (auto) 0.19 K/uL (0.00-0.50); Eosinophils % (auto) 3.6 %; Hemoglobin 10.3 g/dl (12.0-16.0); Immature Granulocytes # (auto) 0.02 K/uL (0.01-0.20); Immature Granulocytes % (auto) 0.4 %; Lymphocytes # (auto) 1.19 K/uL (1.20-3.40); Lymphocytes % (auto) 22.8 %; Mean Corpuscular Hemoglobin 29.2 pg (25.0-34.0); Mean Corpuscular Hgb Conc 33.2 g/dL (32.0-36.0); Mean Corpuscular Volume 87.8 fL (80.0-100.0); Monocytes # (auto) 0.54 K/uL (0.11-0.59); Monocytes % (auto) 10.3 %; Neutrophils # (auto) 3.23 K/uL (1.40-6.50); Neutrophils % (auto) 61.8 %; Platelet Count 228 K/uL (130-400); RDW Coefficient of Variation 14.7 % (11.5-14.5); RDW Standard Deviation 46.8 fL (36.4-46.3); Red Blood Count 3.53 M/uL (4.20-5.40); White Blood Count 5.23 K/ul (4.8-10.8)
[2023-05-09 18:41] LABS: Albumin Globulin Ratio 1.3 (0.9-2); Albumin Level 3.8 gm/dl (3.4-5.0); BUN Creatinine Ratio 29.6 (10-20); Bilirubin,Total 0.4 mg/dl (0.2-1.0); Creatinine Clr Calc Pharmacy 49.2 ml/min; Est GFR (African American) 64.9 ml/min; Potassium 4.3 mmol/L (3.5-5.1); Total Protein 6.8 gm/dl (6.0-8.3)
[2023-05-09 18:47] LABS: Troponin I High Sensitivity 11.9 pg/ml (0-14)
--- NOTE | 2023-05-09 19:42 | XRay Report ---
SINGLE VIEW CHEST CLINICAL HISTORY: Atypical chest pain. FINDINGS: An AP, portable, upright chest radiograph is compared to study dated 03/18/2023 and correlate d with chest CT dated 10/12/2013. The heart is enlarged noting atherosclerotic calcification of the th oracic aorta. The pulmonary vasculature is noncongested. There is bibasilar scarring/atelectasis. The lungs and pleural spaces are otherwise clear. No pneumothorax is seen. The skeletal structures are o steopenic. The bony thorax is grossly intact. IMPRESSION: Cardiomegaly with no acute cardiopulmonary abnormality identified. ACT 112: Negative or not required by law. Electronically signed by: Jose Fox M.D. 05/09/2023 7:41 PM
--- NOTE | 2023-05-09 21:04 | History & Physical Report ---
Date of Service May 09, 2023 Assessment & Plan (1) Chest pain: Plan: -Admit to med/tele -Currently stable and pain free -Presented to the ED after she told staff at [facility] that she was experiencing substernal chest discomfort -Patient is less than a month out from her MAUREEN stent placement to the LCx with Dr. Martinez on 03/18/23 after presenting to the ED with a STEMI -Patient's cardiac workup to this point has been reassuring with no acute ECG changes and 2, negative, high sensitivity troponin -Patient explains that this is not the same discomfort she was experiencing when she presented to the ED on 03/18, she does not have arm, neck, jaw, or extremity pain/discomfort -She may have had some relief after receiving full dose aspirin and a dose of Nitrglycerin by EMS, but this does not necessarily indicate her pain was cardiac in nature -Chest xray was negative for acute findings -Pain is reproducible on palpation, likely musculoskeletal in nature -Continue to monitor on tele overnight -Will repeat high sen trop tomorrow am -PRN ECG for chest pain -Continue all cardiac meds -BL SCD's for DVT PPX -HH/DMII diet -AM CBC, BMP, mag, trop (2) CAD (coronary artery disease): Plan: -Continue aspirin and brilinta -Continue statin -Continue metoprolol and lisinopril (3) GERD (gastroesophageal reflux disease): Plan: -Continue PPI (4) Sleep apnea: Plan: -HS CPAP ordered (5) Hypertension: Plan: -Stable -Continue antihypertensives (6) Diabetes mellitus type 2 in obese: Plan: -Monitor BSG ACHS goal is 110-160 -Will continue home lantus of 8 units qam -Start CF 50 ACHS -HH/DMII diet (7) Dyslipidemia: Plan: -Conitnue statin Plan The patient was discussed with Dr. Angela at the time of the admission History of Present Illness Chief Complaint: chest pain, BL arm pain and paresthesias Primary Care Provider: DO Stefany Iyer is a 77 year old female with a PMH significant for STEMI S/P PCI to subtotal distal LCx with single MAUREEN on 03/18/[address] Martinez, CKD stage III AA, vitamin D deficiency, diabetic nephropathy, diabetes mellitus type 2, small bowel enteritis, hypertension, statin myopathy, dyslipidemia and peripheral neuropathy who presented to the [facility] ED on 05/09/23 with acute onset of substernal chest pain with associated BL arm pain/paresthesias which began at 2:30 pm today. She was noted to be hypertensive at 163/90 but was otherwise stable. CBC, CMP, and high sen trop x 2 were unremarkable. Chest xray was read as "Cardiomegaly with no acute cardiopulmonary abnormality identified". ECG showed NSR with RBBB but was without acute ST segment or T-wave changes. The patient was given 324 mg Aspirin and a dose of Nitroglycerin SL spray in route by EMS, 1gm PO Tylenol, and 0.4mg SL nitroglycerin in the ED with resolution of her symptoms. We were asked to admit her for further monitoring with her recent cardiac hx. At the time of the exam the patient was sitting in bed in no acute distress. She states that she had been in her normal state of health since her discharge back to [facility]. She had her first Cardiac Rehab appointment yesterday. When asked, she states that she had no chest discomfort, VINCENT, or SOB with the exercises they had her complete. Earlier this afternoon she noticed mild, 2- 3/10, substernal chest tightness/aching. This lasted for approximately 2 hours before she let staff know. When asked multiple times, she clearly denies any other pain such as arm, neck, jaw, back, shoulder, or LE pain. She states that when she presented to the ED on the day of her STEMI she was experiencing significant substernal chest pressure with radiation into the jaw, BL upper, and BL lower extremities. She states that she feels embarrassed as she thinks she was outthinking her symptoms earlier today. I explained that it is not unreasonable at all to be concerned about chest discomfort, one month after receiving a cardiac stent. She is currently chest pain free. She did have her am meds prior to ED arrival. We discussed code status as she was a full code during her last admission. She clearly states that she has a living will and is a DNR/DNI. Please refer to Dr. Plaza's attestation for any changes to the treatment plan Allergies Allergy/AdvReac Type Severity Reaction Status Date / Time latex Allergy Mild ON [facility] Verified 05/09/23 18:27 LIST-per patient- thinks rash niacin Allergy Unknown ON [facility] Verified 05/09/23 18:27 [From [facility] LIST Extended-Release] simvastatin Allergy Unknown ON Verified 05/09/23 18:27 [facility] LIST- unsure Home Medications Medication Instructions Recorded Confirmed Type glucose 4 gram chewable tablet 1 tab PO UD PRN HYPOGLYCEMIA 11/26/17 05/09/23 History omeprazole 20 mg capsule,delayed 20 mg PO QAM 11/26/17 05/09/23 History release polyethylene glycol 3350 17 gram 17 g PO QAM 11/26/17 05/09/23 History oral powder packet quetiapine 50 mg tablet 50 mg PO HS 11/26/17 05/09/23 History timolol 0.5 % eye drops 1 drp OPB [facility] 11/26/17 05/09/23 History tolterodine 2 mg tablet 2 mg PO BID 11/26/17 05/09/23 History acetaminophen 325 mg tablet 650 mg PO Q6H PRN Fever Or Pain 06/12/18 05/09/23 History (Tylenol) insulin lispro 100 unit/mL 3 unit subcut TID 10/12/20 05/09/23 History subcutaneous pen (Humalog KwikPen (U-100) Insulin) menthol 0.44 %-zinc oxide 20.6 % 1 applic topical BID PRN skin 07/23/21 05/09/23 Rx topical ointment in packet irritation #504 grams (Calmoseptine) ketoconazole 2 % topical cream 1 applic topical BID #30 grams 11/24/22 05/09/23 Rx nystatin 100,000 unit/gram topical 1 applic topical BID PRN RASH IN 11/24/22 05/09/23 History cream ABD FOLDS NEEDED pen needle, diabetic, safety 30 #100 ea 01/12/23 05/06/23 History gauge x 1/3" (Novofine Autocover) loperamide 2 mg capsule (Imodium 2 mg PO Q6H PRN loose stool #60 01/21/2304/17 Rx A-D) caps methenamine hippurate 1 gram tablet 1 g PO Q12H #180 tabs 02/12/23 05/09/23 Rx spironolactone 25 mg tablet 25 mg PO BID #60 tabs 03/20/23 05/09/23 Rx magnesium citrate 150 ml PO DAILY PRN No BM x 2 days 03/26/23 05/09/23 Rx #296 mL metoprolol tartrate 50 mg tablet 50 mg PO BID #60 tabs 04/08/23 05/09/23 Rx ticagrelor 90 mg tablet (Brilinta) 90 mg PO BID #60 tabs 04/08/23 05/09/23 Rx gabapentin 800 mg tablet 800 mg PO TID #90 tabs 04/17/23 05/09/23 Rx dulaglutide 4.5 mg/0.5 mL 4.5 mg (0.5 mL) subcut ONCE #2 mL 05/06/23 05/09/23 Rx subcutaneous pen injector (Trulicity) amoxicillin 500 mg capsule 2,000 mg PO DIRECTED PRN PRIOR 05/09/23 05/09/23 History TO DENTAL PROCEDURES citalopram 20 mg tablet 20 mg PO QAM 05/09/23 05/09/23 History fluorometholone 0.1 % eye 1 drp ophthalmic (eye) DIRECTED 05/09/23 05/09/23 History drops,suspension hydrocortisone 1 % topical cream 1 applic topical BID PRN Rash 05/09/23 05/09/23 History insulin glargine 100 unit/mL (3 8 unit subcut QAM 05/09/23 05/09/23 History mL) subcutaneous pen (Lantus Solostar U-100 Insulin) lisinopril 40 mg tablet 40 mg PO QAM 05/09/23 05/09/23 History lorazepam 0.5 mg tablet 0.5 mg PO DAILY PRN Anxiety 05/09/23 05/09/23 History lorazepam 0.5 mg tablet 0.5 mg PO HS anxiety 05/09/23 05/09/23 History psyllium husk 3.4 gram/5.4 gram 1 tsp PO DAILY 05/09/23 05/09/23 History oral powder (Metamucil) vit C 250 mg-vit E 90 mg-zinc 40 1 tab PO BID 05/09/23 05/09/23 History mg-copper 1 vp-retnbv-rwlffe capsule (PreserVision AREDS-2) Past Med/Surg History Medical History (Updated 05/09/23 @ 21:43 by Jason Crowder PA-C) STEMI (ST elevation myocardial infarction) Overactive bladder Proteinuria Glaucoma History of recurrent UTI (urinary tract infection) Insomnia Per records Neuropathy per patient- hands and feet Depression Per records Hypertension Per records History of macular degeneration Chronic back pain GERD (gastroesophageal reflux disease) hx Diabetes mellitus, type 2 IDDM Sleep apnea cpap nightly with 3lpm of oygen Spinal stenosis of lumbar region Neurogenic claudication due to lumbar spinal stenosis History of nephrolithiasis Nasal bone fracture Cholecystitis, acute Surgical History Status post spinal surgery History of bilateral tubal ligation Hx of total knee arthroplasty bilateral S/P epidural steroid injection History of cholecystectomy History of colonoscopy History of cornea transplant bilateral History of cataract surgery bilateral History of appendectomy Family History Mother Breast cancer Aunt Colorectal cancer Diabetes Father Myocardial infarction Other No family history of adverse response to anesthesia No pertinent family history Denies family history of Ovarian cancer Prostate cancer Social History Smoking Status: Former smoker Tobacco Type: Cigarettes Cigarettes Per Day: 2 packs/day; Second Hand Exposure: No; Do You Dip or Chew Tobacco: No; Hx Alcohol Use: No Hx Substance Use: No Preferred Language: Ukrainian Communication Ability: Effective Visual Impairment: No Limitations Hearing Ability: Normal Quality Improvement Engineer Required: No Beliefs That Will Affect Care: None marital status: Current Living Situation: Personal Care Facility Current Living Situation Comment: [facility] current occupational status: retired current occupation: Retired How many Children do You have: 2 Other Information That Helps Us Care for You: No Feels Safe at Home: Yes Safety Concerns: Feels Safe At This Time Childhood Exposure to Second-Hand Smoke: No Diet: regular caffeine: No during the past year weight has: remained stable Dental Care, Regularly: Yes Physical Activity Frequency: Does not Exercise Seatbelt Use: always Sunscreen Use: Yes Assistive Devices: Walker Physical Exam Physical Exam: Physical Exam: General: In no acute distress, stated age, well-nourished, good hygiene HEENT: Normocephalic, atraumatic, no scleral icterus, pupils around round, symmetrical, and reactive to light, negative JVD, moist mucus membranes, trachea midline, no thyromegaly Chest/Pulm: No respiratory distress, symmetrical chest expansion, clear breath sounds throughout Cardiac: RRR, no murmurs noted Abdomen: Negative for ascites and bruising, normoactive bowel sounds, soft, non-tender to palpation throughout Musculoskeletal: Reproducible pain on palpation of the sternum, Symmetrical and without signs of acute trauma, upper and lower extremities with full ROM, no atrophy, spasticity, or flaccidity Extremities: Radial, dorsalis pedis, and posterior tibial pulses are intact and symmetrical, no edema noted in the BL LE's Skin: Warm, dry, no rashes , lesions, or scars noted Neuro: Alert and oriented to person, place, month, year, and president, no focal defects, no tremors noted Psych: No acute distress, calm and cooperative during the exam Results & Data Results & Data Vital Signs (Past 12 Hours) Vital Signs Temp Pulse Pulse Resp BP BP Pulse Ox 05/09/23 20:20 84 19 96 05/09/23 19:31 85 16 175/84 H 95 05/09/23 18:58 86 20 163/90 H 98 05/09/23 18:09 05/09/23 18:02 88 05/09/23 18:01 37.0 C 84 19 135/69 97 O2 Del Method 05/09/23 20:20 05/09/23 19:31 Room Air 05/09/23 18:58 Room Air 05/09/23 18:09 Room Air 05/09/23 18:02 05/09/23 18:01 Room Air Laboratory Results Abnormal lab results 05/09/23 Range/Units 17:45 RBC 3.53 L (4.20-5.40) M/uL Hgb 10.3 L (12.0-16.0) g/dl Hct 31.0 L (37.0-47.0) % RDW Std Deviation 46.8 H (36.4-46.3) fL RDW Coeff of Brian 14.7 H (11.5-14.5) % MPV 9.0 L (9.4-12.4) fL Lymph # (Auto) 1.19 L (1.20-3.40) K/uL Chloride 109 H (98-107) mmol/L Carbon Dioxide 19 L (21-32) mmol/L BUN 29 H (6-23) mg/dl BUN/Creatinine Ratio 29.6 H (10-20) Glucose 206 H (70-99(Fasting)) mg/dl Diagnostic Findings Chest X-Ray 05/09/23 18:01 SINGLE VIEW CHEST CLINICAL HISTORY: Atypical chest pain. FINDINGS: An AP, portable, upright chest radiograph is compared to study dated 03/18/2023 and correlated with chest CT dated 10/12/2013. The heart is enlarged noting atherosclerotic calcification of the thoracic aorta. The pulmonary vasculature is noncongested. There is bibasilar scarring/atelectasis. The lungs and pleural spaces are otherwise clear. No pneumothorax is seen. The skeletal structures are osteopenic. The bony thorax is grossly intact. IMPRESSION: Cardiomegaly with no acute cardiopulmonary abnormality identified. ACT 112: Negative or not required by law. Electronically signed by: Jose Fox M.D. 05/09/2023 7:41 PM ECG Additional Comments: Normal sinus rhythm Right bundle branch block Abnormal ECG When compared with ECG of 19-MAR-2023 06:21, Left posterior fascicular block is no longer Present Criteria for Inferior infarct are no longer Present Code Status & VTE Plan Code Status Full code VTE Prophylaxis Plan VTE Prophylaxis will be ordered: Yes Supervising Physician Co-Signing Physician Notes Attending addendum: I have physically seen this patient, have supervised the GAYATHRI's activities, and agree with the H&P unless as otherwise noted. Assessment and Plan: Chest pain/CAD/history of left circumflex stent on 03-18-2023 following STEMI- The patient will be admitted to telemetry for serial cardiac enzymes, serial EKG's, cardiac rhythm monitoring Patient was also noted during catheterization to have an 80% small distal LAD disease that was to be medically managed Troponin normal x 2 EKG without acute changes Continue routine medications: Metoprolol tartrate, lisinopril, Brilinta, spironolactone Verify with cardiology whether patient is also supposed be on aspirin. Was not on her medication list, but will be added Diabetes mellitus- Hold dulaglutide and standing order for Humalog Continue glargine Placed on Accu-Cheks with NovoLog SSI Dyslipidemia/history of statin myopathy- Patient has noted allergies to simvastatin and niacin Unclear if any other statins have been attempted Remaining orders and notations as noted PG Care Time/CCT Total # of Minutes Spent Total Time Spent with Patient: Total time spent is greater than 50% in coordination of care (as documented) at patient's floor/unit and/or counseling patient: [place] [address] INT INP/OBS CARE 75MIN Patient Type Established Medical Decision Making High Complexity Diagnoses Chest pain R07.9 CAD (coronary artery disease) I25.10 GERD (gastroesophageal reflux disease) K21.9 Sleep apnea G47.30 Primary hypertension I10 Hypertension type: primary hypertension Diabetes mellitus type 2 in obese E11.69; E66.9 Dyslipidemia E78.5 (5) Hypertension Hypertension type: primary hypertension Qualified Code(s): I10 - Essential (primary) hypertension
[2023-05-09] MEDS: NITROGLYCERIN SL 0.4 MG/TAB TAB SL STA (21:17)
[2023-05-09] MEDS: ACETAMINOPHEN 500 MG TAB PO STA (21:17)
[2023-05-09] MEDS ORDERED: CARBOHYDRATES FOR HYPOGLYCEMIA PO PRN (21:25)
[2023-05-09] MEDS ORDERED: GLUCOSE 10 TAB/TUBE PO PRN (21:25)
[2023-05-09] MEDS ORDERED: DEXTROSE 50% 50 ML SYRINGE IV PRN (21:25)
[2023-05-09] MEDS ORDERED: GLUCAGON FOR INJ 1 MG VIAL SQ PRN (21:25)
[2023-05-09] MEDS ORDERED: GLUCOSE 40% GEL 15 GM TUBE PO PRN (21:25)
[2023-05-09] MEDS ORDERED: ACETAMINOPHEN 325 MG TAB PO PRN ×2 (21:32→23:26)
[2023-05-09] MEDS: METOPROLOL TARTRATE 50 MG TAB PO STA (21:34)
[2023-05-09] MEDS: SPIRONOLACTONE 25 MG TAB PO ONE (21:34)
[2023-05-09] MEDS: TICAGRELOR 90 MG TAB PO STA (22:23)
[2023-05-09] MEDS ORDERED: INSULIN ASPART PER UNIT CHARGE SC SCH (23:56)
[2023-05-10] MEDS ORDERED: Nursing to Pharmacy Communication SCH (00:30)
[2023-05-10] MEDS: LORazepam 0.5 MG TAB PO PRN (01:04)
[2023-05-10] MEDS: INSULIN ASPART PER UNIT CHARGE SC SCH (01:06)
[2023-05-10 07:02] LABS: Basophils # (auto) 0.05 K/uL (0.00-0.20); Eosinophils # (auto) 0.24 K/uL (0.00-0.50); Eosinophils % (auto) 4.9 %; Hematocrit (blood only) 32.4 % (37.0-47.0); Hemoglobin 10.8 g/dl (12.0-16.0); Immature Granulocytes # (auto) 0.02 K/uL (0.01-0.20); Immature Granulocytes % (auto) 0.4 %; Lymphocytes # (auto) 1.38 K/uL (1.20-3.40); Lymphocytes % (auto) 28.5 %; Mean Corpuscular Hemoglobin 29.2 pg (25.0-34.0); Mean Corpuscular Hgb Conc 33.3 g/dL (32.0-36.0); Mean Corpuscular Volume 87.6 fL (80.0-100.0); Monocytes # (auto) 0.48 K/uL (0.11-0.59); Monocytes % (auto) 9.9 %; Neutrophils # (auto) 2.68 K/uL (1.40-6.50); Neutrophils % (auto) 55.3 %; Platelet Count 200 K/uL (130-400); RDW Coefficient of Variation 14.3 % (11.5-14.5); RDW Standard Deviation 45.6 fL (36.4-46.3); White Blood Count 4.85 K/ul (4.8-10.8)
[2023-05-10 07:17] LABS: BUN Creatinine Ratio 25.8 (10-20); Calcium 9.1 mg/dl (8.6-10.3); Creatinine Clr Calc Pharmacy 50.4 ml/min; Est GFR (African American) 69.2 ml/min; Est GFR (Non-African American) 59.7 ml/min; Potassium 4.2 mmol/L (3.5-5.1)
[2023-05-10 07:24] LABS: Troponin I High Sensitivity 14.3 pg/ml (0-14)
[2023-05-10 07:25] LABS: Prothrombin Time 11.2 Seconds (9.0-12.0)
[2023-05-10] MEDS ORDERED: INSULIN ASPART PER UNIT CHARGE SC SCH (07:30)
--- NOTE | 2023-05-10 07:42 | Hospitalist Progress Note ---
Date of Service May 10, 2023 Assessment & Plan (1) Chest pain: Plan: 77 y/o with history of STEMI underwent MAUREEN x 1 to left circ 03/18/23, also with 80% distal LAD disease being managed medically. Also has history of DM type 2, CKD-3, HTN, ROMAN, UTIs -Presented to the ED after she told staff at [facility] that she was experiencing substernal chest discomfort -serial EKGs (personally reviewed tracings) since presentation show RBBB, in March LAFB was present which has resolved -Tn 12, 10, 14, 10 -pain is reproducible on palpation consistent with component of costochondral pain, however does not exactly reproduce the pain she had yesterday and pain did improve after ASA/nitro by EMS -continue DAPT (ASA + brilinta), metoprolol, lisinopril. Wrote ASA as a prescription since its not on her admitting med list - discussed with her she needs to be on BOTH aspirin and brilinta, added to DC instructions, and she'll touch base with [facility] nurse tomorrow to make sure she is on it. -no evidence of ACS. Pain may have been MSK or GI in origin and was not highly suspicious, however, she does have distal LAD disease which could cause angina. She is also mildly hypertensive (at least in hospital) on current regimen. Discussed with hotel attendant sound person this weekend - will add Imdur to her regimen for antianginal effect, follow up with Dr. Martinez (2) CAD (coronary artery disease): Plan: -Continue aspirin and brilinta -Continue statin -Continue metoprolol and lisinopril -continue aldactone -added imdur 30 mg daily, see above TTE 03/19 reviewed - mild conc LVH, EF 55-60%, postero-lateral hypokinesis (3) GERD (gastroesophageal reflux disease): Plan: -Continue PPI (4) Sleep apnea: Plan: -HS CPAP ordered (5) Hypertension: Plan: -Stable -Continue antihypertensives (6) Diabetes mellitus type 2 in obese: Plan: Recent A1c 6.7%, followed by endocrinology clinic -doing great with this! -continue usual regimen at home (7) Dyslipidemia: Plan: -Conitnue statin Plan Chronic kidney disease, stage 3a: Cr at baseline and improved compared to March Hypertension: continue metoprolol, aldactone, lisinopril Dyslipidemia: now on atorvastatin Vitamin D deficiency: severely low on last check on Vit D once weekly 50k units as outpt Peripheral neuropathy: continue home gabapentin 800mg po tid She perceives some increased tingling in both hands and forearms, symmetrically, in glove distribution. This seems consistent with her diabetic neuropathy. I discussed with her recommended against increasing the gabapentin - dose is already on high side for her age / renal function / ROMAN and explained it will only mask symptoms, whereas she is doing great with her DM and weight loss which is ultimately the best treatment for her neuropathy. Glaucoma: continue home eye drops Depression: continue home Celexa, Seroquel, ativan. Hyponatremic in March which resolved watch for worsening mood post-OK follow with PCP Sleep apnea: continue CPAP Overactive bladder, nephrolithiasis: Followed by Dr. Watkins, reviewed recent clinic note Recommend discontinuation of anticholinergic due to h/o recurrent UTI--> she will discuss with PCP and/or Urology continue methanamine for UI prevention Admission and Anticipated Discharge Date Admission Date: May 09, 2023 Subjective No further chest pain but has a chronic cough and sternoclavicular joints are tender to palpation. Pain yesterday occurred at rest. Physical Exam Physical Exam: PHYSICAL EXAMINATION Last 24h vital signs reviewed, see documentation in flowsheet General: comfortable appearing, no distress HEENT: Normocephalic, atraumatic, pupils round and equal, sclerae anicteric, no conjunctival injection, moist mucus membranes Lungs: Normal respiratory effort. Clear to auscultation bilaterally. No RRW Heart: Regular rate and rhythm, no murmurs. No JVD Abdomen: Soft, nontender, nondistended. Bowel sounds present. Extremities: Warm, dry, well-perfused. minimal extremity edema. Neuro: Alert and oriented x 4, R eyelid chronically droopy otherwise face symmetric, moves 4 extremities well Psych: Normal affect and behavior Results & Data Results & Data Vital Signs (Past 12 Hours) Vital Signs Temp Pulse Pulse Resp BP BP Pulse Ox 05/10/23 05:09 36.6 C 75 20 156/86 H 100 05/10/23 02:20 15 05/10/23 00:02 76 16 100 05/09/23 23:30 05/09/23 23:30 36.3 C L 82 16 156/70 H 97 05/09/23 22:35 81 05/09/23 22:25 85 05/09/23 22:24 83 14 167/99 H 97 05/09/23 21:06 85 20 150/97 H 97 05/09/23 20:20 84 19 96 O2 Del Method O2 Flow Rate 05/10/23 05:09 Room Air 05/10/23 02:20 3 05/10/23 00:02 3 05/09/23 23:30 CPAP 3 05/09/23 23:30 Room Air 05/09/23 22:35 05/09/23 22:25 05/09/23 22:24 05/09/23 21:06 Room Air 05/09/23 20:20 PG Care Time/CCT Total # of Minutes Spent Total Time Spent with Patient: Total time spent is greater than 50% in coordination of care (as documented) at patient's floor/unit and/or counseling patient: Coding Level of Care Code None Diagnoses Chest pain R07.9 CAD (coronary artery disease) I25.10 GERD (gastroesophageal reflux disease) K21.9 Sleep apnea G47.30 Primary hypertension I10 Hypertension type: primary hypertension Diabetes mellitus type 2 in obese E11.69; E66.9 Dyslipidemia E78.5 (5) Hypertension Hypertension type: primary hypertension Qualified Code(s): I10 - Essential (primary) hypertension
[2023-05-10] MEDS: METHENAMINE HIPPURATE 1 GM TAB PO SCH (08:08)
[2023-05-10] MEDS: GABAPENTIN 800 MG TAB PO SCH (08:08)
[2023-05-10] MEDS: ASPIRIN 81 MG ECTAB PO SCH (08:08)
[2023-05-10] MEDS: PANTOprazole 40 MG TAB PO SCH (08:08)
[2023-05-10] MEDS: TICAGRELOR 90 MG TAB PO SCH (08:08)
[2023-05-10] MEDS: METOPROLOL TARTRATE 50 MG TAB PO SCH (08:08)
[2023-05-10] MEDS: SPIRONOLACTONE 25 MG TAB PO SCH (08:08)
[2023-05-10] MEDS: lisinopril 40 MG TAB PO SCH (08:09)
[2023-05-10] MEDS: OXYBUTYNIN CHLORIDE XL 5 MG TABCR PO SCH (08:09)
[2023-05-10] MEDS: CITALOPRAM 20 MG TAB PO SCH (08:09)
[2023-05-10] MEDS: TIMOLOL MALEATE 0.5% OP SOLN 5 ML BTL OP SCH (08:14)
[2023-05-10] MEDS: LANTUS PER UNIT CHARGE SQ SCH (09:11)
--- NOTE | 2023-05-10 13:38 | Electrocardiogram Report ---
Test Reason : Blood Pressure : / mmHG Vent. Rate : 087 BPM Atrial Rate : 087 BPM P-R Int : 164 ms QRS Dur : 136 ms QT Int : 390 ms P-R-T Axes : 056 008 039 degrees QTc Int : 469 ms Normal sinus rhythm Right bundle branch block Abnormal ECG When compared with ECG of 19-MAR-2023 06:21, Left posterior fascicular block is no longer Present Criteria for Inferior infarct are no longer Present Confirmed by Christopher Lugo ([id number]) on 05/10/2023 1:38:23 PM Referred By: REFERRED SELF Confirmed By:Christopher Lugo
--- NOTE | 2023-05-10 13:39 | Electrocardiogram Report ---
Test Reason : Blood Pressure : / mmHG Vent. Rate : 084 BPM Atrial Rate : 084 BPM P-R Int : 168 ms QRS Dur : 138 ms QT Int : 394 ms P-R-T Axes : 049 -03 016 degrees QTc Int : 465 ms Normal sinus rhythm Right bundle branch block Abnormal ECG When compared with ECG of 09-MAY-2023 17:56, (unconfirmed) No significant change was found Confirmed by Christopher Lugo ([id number]) on 05/10/2023 1:39:09 PM Referred By: REFERRED SELF Confirmed By:Christopher Lugo
--- NOTE | 2023-05-10 16:08 | Discharge Summary ---
Date of Service May 10, 2023 Admission HPI Per Admitting Provider Stefany is a 77 year old female with a PMH significant for STEMI S/P PCI to subtotal distal LCx with single MAUREEN on 03/18/[address] Martinez, CKD stage III AA, vitamin D deficiency, diabetic nephropathy, diabetes mellitus type 2, small bowel enteritis, hypertension, statin myopathy, dyslipidemia and peripheral neuropathy who presented to the [facility] ED on 05/09/23 with acute onset of substernal chest pain with associated BL arm pain/paresthesias which began at 2:30 pm today. She was noted to be hypertensive at 163/90 but was otherwise stable. CBC, CMP, and high sen trop x 2 were unremarkable. Chest xray was read as "Cardiomegaly with no acute cardiopulmonary abnormality identified". ECG showed NSR with RBBB but was without acute ST segment or T-wave changes. The patient was given 324 mg Aspirin and a dose of Nitroglycerin SL spray in route by EMS, 1gm PO Tylenol, and 0.4mg SL nitroglycerin in the ED with resolution of her symptoms. We were asked to admit her for further monitoring with her recent cardiac hx. At the time of the exam the patient was sitting in bed in no acute distress. She states that she had been in her normal state of health since her discharge back to [facility]. She had her first Cardiac Rehab appointment yesterday. When asked, she states that she had no chest discomfort, VINCENT, or SOB with the exercises they had her complete. Earlier this afternoon she noticed mild, 2- 3/10, substernal chest tightness/aching. This lasted for approximately 2 hours before she let staff know. When asked multiple times, she clearly denies any other pain such as arm, neck, jaw, back, shoulder, or LE pain. She states that when she presented to the ED on the day of her STEMI she was experiencing significant substernal chest pressure with radiation into the jaw, BL upper, and BL lower extremities. She states that she feels embarrassed as she thinks she was outthinking her symptoms earlier today. I explained that it is not unreasonable at all to be concerned about chest discomfort, one month after receiving a cardiac stent. She is currently chest pain free. She did have her am meds prior to ED arrival. We discussed code status as she was a full code during her last admission. She clearly states that she has a living will and is a DNR/DNI. Principal Diagnosis Chest pain Discharge Exam see progress note 05/10/23 Discharge Data Allergies Allergy/AdvReac Type Severity Reaction Status Date / Time latex Allergy Mild ON [facility] Verified 05/09/23 18:27 LIST-per patient- thinks rash niacin Allergy Unknown ON [facility] Verified 05/09/23 18:27 [From [facility] LIST Extended-Release] simvastatin Allergy Unknown ON Verified 05/09/23 18:27 [facility] LIST- unsure Consultations 05/09/23 20:51 ED Decision to Admit Stat Ordered Studies Chest X-Ray 05/09/23 18:01 SINGLE VIEW CHEST CLINICAL HISTORY: Atypical chest pain. FINDINGS: An AP, portable, upright chest radiograph is compared to study dated 03/18/2023 and correlated with chest CT dated 10/12/2013. The heart is enlarged noting atherosclerotic calcification of the thoracic aorta. The pulmonary vasculature is noncongested. There is bibasilar scarring/atelectasis. The lungs and pleural spaces are otherwise clear. No pneumothorax is seen. The skeletal structures are osteopenic. The bony thorax is grossly intact. IMPRESSION: Cardiomegaly with no acute cardiopulmonary abnormality identified. ACT 112: Negative or not required by law. Electronically signed by: Jose Fox M.D. 05/09/2023 7:41 PM 05/10/23 06:37 05/10/23 06:37 Hospital Course (1) Chest pain: 77 y/o with history of STEMI underwent MAUREEN x 1 to left circ 03/18/23, also with 80% distal LAD disease being managed medically. Also has history of DM type 2, CKD-3, HTN, ROMAN, UTIs -Presented to the ED after she told staff at [facility] that she was experiencing substernal chest discomfort -serial EKGs (personally reviewed tracings) since presentation show RBBB, in March LAFB was present which has resolved -Tn 12, 10, 14, 10 -pain is present on palpation consistent with component of costochondral pain, however does not exactly reproduce the pain she had yesterday and pain did improve after ASA/nitro by EMS -has had no chest pain today -continue DAPT (ASA + brilinta), metoprolol, lisinopril. Wrote ASA as a prescription since its not on her admitting med list - discussed with her she needs to be on BOTH aspirin and brilinta, added to DC instructions, and she'll touch base with Vtivaniasaint charles nurse tomorrow to make sure she is on it. -no evidence of ACS. Pain may have been MSK or GI in origin and was not highly suspicious, however, she does have distal LAD disease which could cause angina. She is also mildly hypertensive (at least in hospital) on current regimen. Discussed with gastroenterology teacher presales consultant this weekend - will add Imdur to her regimen for antianginal effect, follow up with Dr. Martinez (2) CAD (coronary artery disease): -Continue aspirin and brilinta -Continue statin -Continue metoprolol and lisinopril -continue aldactone -added imdur 30 mg daily, see above TTE 03/19 reviewed - mild conc LVH, EF 55-60%, postero-lateral hypokinesis (3) GERD (gastroesophageal reflux disease): -Continue PPI (4) Sleep apnea: -HS CPAP ordered (5) Hypertension: -Stable -Continue antihypertensives (6) Diabetes mellitus type 2 in obese: Recent A1c 6.7%, followed by endocrinology clinic -doing great with this! -continue usual regimen at home (7) Dyslipidemia: -Conitnue statin Plan Chronic kidney disease, stage 3a: Cr at baseline and improved compared to March Hypertension: continue metoprolol, aldactone, lisinopril Dyslipidemia: now on atorvastatin Vitamin D deficiency: severely low on last check on Vit D once weekly 50k units as outpt Peripheral neuropathy: continue home gabapentin 800mg po tid She perceives some increased tingling in both hands and forearms, symmetrically, in glove distribution. This seems consistent with her diabetic neuropathy. I discussed with her recommended against increasing the gabapentin - dose is already on high side for her age / renal function / ROMAN and explained it will only mask symptoms, whereas she is doing great with her DM and weight loss which is ultimately the best treatment for her neuropathy. Glaucoma: continue home eye drops Depression: continue home Celexa, Seroquel, ativan. Hyponatremic in March which resolved watch for worsening mood post-UT follow with PCP Sleep apnea: continue CPAP Overactive bladder, nephrolithiasis: Followed by Dr. Watkins, reviewed recent clinic note Recommend discontinuation of anticholinergic due to h/o recurrent UTI--> she will discuss with PCP and/or Urology continue methanamine for UI prevention Total Time Total Time Spent Total Time Spent (In Minutes): I personally spent: 40 minutes today on clinical care activities including: reviewing chart notes and vital signs reviewing labs reviewing studies, previous records discussion with regional sales consultant examining and counseling the patient writing orders documentation Discharge Plan Discharge Items Patient Disposition: Personal Fdc Reason For Visit: CHEST PAIN Discharge Diagnosis: chest pain Activity: Resume your previous activity Non-emergency contact: Primary Care Provider and Senior Professional Services Consultant Call non-emergency contact if: you have any medication questions and your symptoms worsen Follow-up/Referrals: Arnie Martinez MD [Physician] - Levon Adam DO [Primary Care Provider] - 05/21/23 4:00 pm Diet: Carb Consistent or DM2 and Heart Healthy Addtl Attending Provider Instructions: You were evaluated for chest pain Fortunately, there is no evidence of another heart attack Its possible that this pain is musculoskeletal in nature, because the joints next to your sternum are tender Its also possible that you had an episode of angina related to your coronary disease Therefore, we'll add a dose of medication called isosorbide (imdur) which relaxes the coronary arteries and helps prevent angina -stay on all your other medications -make sure you are taking baby aspirin daily AND brilinta (ticagrelor) to keep your stent open - typically the gastroenterology teacher wants you on BOTH for a year -make an appointment within the next few weeks with Dr. Martinez or his PA to check in Ely Vargas MD Pending Studies at Discharge: No Stand-Alone Forms: My MyDocTime, Smoking Cessation Skilled Items Patient informed of condition?: Yes DNR: Yes Discharge Level of Care: Other Communicable Disease: No Discharge Prognosis: Stable Lines: None Urinary Catheter: No Medications and DC Order Prescriptions: New aspirin 81 mg Tablet,Delayed Release (Dr/Ec) 81 mg PO QAM Qty: 30 0RF isosorbide mononitrate 30 mg tablet extended release 24 hr 30 mg PO DAILY Qty: 30 0RF Continued Calmoseptine 0.44-20.6 % ointment in packet 1 applic topical BID PRN (Reason: skin irritation) Qty: 504 2RF methenamine hippurate 1 gram tablet 1 g PO Q12H Qty: 180 1RF Rx Instructions: 0730 & 2100 gabapentin 800 mg tablet 800 mg PO TID Qty: 90 5RF Rx Instructions: 0730, 1500, & 2100 Trulicity 4.5 mg/0.5 mL pen injector 4.5 mg subcut ONCE Qty: 2 5RF Rx Instructions: THURSDAY MORNINGS metoprolol tartrate 50 mg tablet 50 mg PO BID Qty: 60 11RF Rx Instructions: 0730 & 2100 Brilinta 90 mg tablet 90 mg PO BID Qty: 60 11RF Rx Instructions: ON EXT MED HX, [facility]. ketoconazole 2 % cream 1 applic topical BID Qty: 30 1RF Rx Instructions: 0730 & 2100 nystatin 100,000 unit/gram cream 1 applic topical BID PRN (Reason: RASH IN ABD FOLDS NEEDED) loperamide [Imodium A-D] 2 mg capsule 2 mg PO Q6H PRN (Reason: loose stool) Qty: 60 1RF (DME) Novofine Autocover 30 gauge x 1/3" needle See Rx Instructions .ROUTE .MEDSUPPLY Qty: 100 Rx Instructions: As directed magnesium citrate Solution 150 ml PO DAILY PRN (Reason: No BM x 2 days) Qty: 296 2RF polyethylene glycol 3350 17 gram Powder In Packet 17 g PO QAM omeprazole 20 mg Capsule,Delayed Release(Dr/Ec) 20 mg PO QAM tolterodine 2 mg Tablet 2 mg PO BID Rx Instructions: 07 & 2100 timolol 0.5 % Drops 1 drp OPB QAM glucose 4 gram Tablet,Chewable 1 tab PO UD PRN (Reason: HYPOGLYCEMIA) quetiapine 50 mg Tablet 50 mg PO HS acetaminophen [Tylenol] 325 mg Tablet 650 mg PO Q6H MDD MAX 3 GRAMS APAP/24 HOURS. PRN (Reason: Fever Or Pain) insulin lispro [Humalog KwikPen Insulin] 100 unit/mL insulin pen 3 unit SUBCUT TID Rx Instructions: TAKES 0800, 1200, & 1700--3 UNIT BASE DOSE WITH PREMEAL BSG IS GREATER THAN 150, FOR EVERY 50 ABOVE BSG OF 200 ADD ADDITIONAL 3 UNITS. spironolactone 25 mg Tablet 25 mg PO BID Qty: 60 0RF Rx Instructions: 0730 & 2100 amoxicillin 500 mg Capsule 2,000 mg PO DIRECTED PRN (Reason: PRIOR TO DENTAL PROCEDURES) lorazepam 0.5 mg Tablet 0.5 mg PO DAILY PRN (Reason: Anxiety) hydrocortisone 1 % Cream 1 applic TOPICAL BID PRN (Reason: Rash) PreserVision AREDS-2 250-90-40-1 mg Capsule 1 tab PO BID Rx Instructions: 0730 & 2100 Metamucil 3.4 gram/5.4 gram Powder 1 tsp PO DAILY Rx Instructions: mix into at least 4 oz water or juice before administering lorazepam 0.5 mg tablet 0.5 mg PO HS lisinopril 40 mg tablet 40 mg PO QAM insulin glargine [Lantus Solostar U-100 Insulin] 100 unit/mL (3 mL) insulin pen 8 unit SUBCUT QAM citalopram 20 mg tablet 20 mg PO QAM Rx Instructions: ON EXT MED LIST, NOT ON [facility] LIST fluorometholone 0.1 % drops,suspension 1 drp ophthalmic (eye) DIRECTED Rx Instructions: ON EXT MED HX, NOT ON [facility] LIST Discharge Orders: Discharge Order (Routine); Ordered 05/10/23 Ordered By: Ely Vargas Admission Data Admit Date/Time: 05/09/23 21:24 Attending Provider: Ely Vargas Admit Provider: Giovanni Angela Primary Care Provider: Levon Adam Other Providers: Giovanni Angela Other Interventions: Discharge Summary Assessment (RN) Last Done: 05/10/23 14:49 Coding Level of Care Code 93246 INP/OBS DISCH >30 MIN Diagnoses Chest pain R07.9 CAD (coronary artery disease) I25.10 GERD (gastroesophageal reflux disease) K21.9 Sleep apnea G47.30 Primary hypertension I10 Hypertension type: primary hypertension Diabetes mellitus type 2 in obese E11.69; E66.9 Dyslipidemia E78.5
[2023-05-10] MEDS ORDERED: LORazepam 0.5 MG TAB PO SCH (21:00)
[2023-05-10] MEDS ORDERED: QUEtiapine FUMARATE 25 MG TABLET PO SCH (21:00)
== END 2023-05-10 17:33 | disposition home or self-care (01) ==
LOC: ED 17:50 → 2N 17:50 → SUATTDRO 21:24 → 2N 22:42

== ENCOUNTER 2023-08-22 03:14 | Inpatient (IN) ==
[2023-08-22 04:15] LABS: Basophils # (auto) 0.03 K/uL (0.00-0.20); Basophils % (auto) 0.5 %; Eosinophils # (auto) 0.13 K/uL (0.00-0.50); Eosinophils % (auto) 2.3 %; Hematocrit (blood only) 28.6 % (37.0-47.0); Hemoglobin 9.4 g/dl (12.0-16.0); Immature Granulocytes # (auto) 0.03 K/uL (0.01-0.20); Immature Granulocytes % (auto) 0.5 %; Lymphocytes # (auto) 1.45 K/uL (1.20-3.40); Lymphocytes % (auto) 25.4 %; Mean Corpuscular Hemoglobin 29.1 pg (25.0-34.0); Mean Corpuscular Hgb Conc 32.9 g/dL (32.0-36.0); Mean Corpuscular Volume 88.5 fL (80.0-100.0); Mean Platelet Volume 9.4 fL (9.4-12.4); Monocytes # (auto) 0.68 K/uL (0.11-0.59); Monocytes % (auto) 11.9 %; Neutrophils # (auto) 3.38 K/uL (1.40-6.50); Neutrophils % (auto) 59.4 %; Platelet Count 220 K/uL (130-400); RDW Coefficient of Variation 13.7 % (11.5-14.5); RDW Standard Deviation 44.3 fL (36.4-46.3); Red Blood Count 3.23 M/uL (4.20-5.40)
[2023-08-22 04:25] LABS: Albumin Globulin Ratio 1.4 (0.9-2); BUN Creatinine Ratio 27.6 (10-20); Bilirubin,Total 0.3 mg/dl (0.2-1.0); Creatinine Clr Calc Pharmacy 19.5 ml/min; Est GFR (African American) 23.4 ml/min; Est GFR (Non-African American) 20.2 ml/min; Globulin 2.9 gm/dl (2.5-4.0); Potassium 4.4 mmol/L (3.5-5.1); Total Protein 6.9 gm/dl (6.0-8.3)
[2023-08-22 04:37] LABS: Thyroid Stimulating Hormone 1.667 uIu/ml (0.300-4.500)
--- NOTE | 2023-08-22 04:46 | CT Scan Report ---
Exam(s): CT HEAD Without Contrast EXAM: CT Head Without Intravenous Contrast CLINICAL HISTORY: Reason for exam: gait instability. TECHNIQUE: Axial computed tomography images of the head/brain without intravenous contrast. CTDI is 36.55 mGy and DLP is 624.41 mGy-cm. Automated exposure control was utilized for the study. A dose lowering technique was utilized adhering to the principles of ALARA. COMPARISON: 08/06/2023. FINDINGS: Brain: Age-appropriate generalized atrophy. No acute stroke. Moderate supratentorial periventricular and subcortical white matter changes. No acute hemorrhage or abnormal extra-axial fluid collection. Ventricles: No hydrocephalus. No midline shift. Bones/joints: Unremarkable. No acute fracture. Soft tissues: Unremarkable. Sinuses: Unremarkable as visualized. No acute sinusitis. IMPRESSION: No acute abnormality. Non-specific white matter changes, most commonly seen with small vessel disease. Electronically signed by: Petar Mijares M.D. 08/22/23 04:45 AM
[2023-08-22] MEDS: SODIUM CHLORIDE 0.9% 500 ML IV ONE (05:00)
--- NOTE | 2023-08-22 05:06 | Emergency Department Note ---
Impression & Plan YAKOV (acute kidney injury), Gait instability admit to the [facility] ED Provider Note NAME: SHENG SINGH AGE: 77 SEX: Female INFORMANT: Patient ED PROVIDER(S): Armida Peterson DO CHIEF COMPLAINT: Off-balance; gait instability PLAN: Disposition: Admit to the [facility] MEDICAL DECISION MAKING: This is a 77-year-old female patient who suffered a fall 2 weeks ago for which she was seen here in the emergency department. Since that time, the patient has been off balance with walking and as she describes it " klutzy." The staff at [facility] states the patient keeps veering to 1 side when she walks. Repeat CT scan of the brain was negative. Laboratory studies revealed no leukocytosis. The patient is anemic with a hemoglobin of 9.4 which is stable for her. However, the patient has significant elevation to her BUN at 63 up from 37. Creatinine is 2.2 up from 1.3. Glucose is 134. TSH is normal. Patient is suffering from acute renal failure. She was bolused with IV normal saline solution here in the emergency department but she will require further inpatient care. We are attempting to obtain a urinalysis from the patient. I discussed the case with the [facility] Hospitalist. Care/management discussed with: manager new product and [facility] Triage Nursing notes: reviewed and agree with them. Vital Signs: reviewed and unremarkable Differential Diagnosis: Chronic subdural hematoma, hypoglycemia, UTI Diagnostics, independently interpreted by me: ECG: Normal sinus rhythm at a rate of [address] segment elevation or signs of ischemia. There is a right bundle branch block. EKG is unchanged from previous EKG Cardiac Monitoring: Normal sinus rhythm at 83 Imaging studies: CT scan of the brain: As per stat rad HPI: 77 year old Female arrives for evaluation of feeling off balance. Patient suffered a fall 2 weeks ago for which she was seen here in the emergency department. Since that time the patient has been off balance with walking and as she describes it klutzy. The staff at [facility] states the patient keeps veering to 1 side when she walks. PAST MEDICAL HISTORY: See Below, PAST SURGICAL HISTORY: See Below, SOCIAL HISTORY: See Below, HOME MEDICATIONS: See list ALLERGIES: See list VITALS: See Below PHYSICAL EXAMINATION: HEENT: Head - normocephalic and atraumatic. Pupils are equal, round, and reactive to light. Extraocular eye muscles are intact and sclera are anicteric. Ears - bilaterally patent canals with noninjected tympanic membranes and no evidence of hemotympanum. Nose - moist nasal mucosa without discharge. Mouth - moist buccal mucosa. Oropharynx is nonerythematous and there is no tonsillar exudate or edema noted. Neck: Supple; no Cervical lymphadenopathy or JVD Heart: Regular rate and rhythm. There is a normal S1 and S2 with no murmurs, clicks, or gallops appreciated. Lungs: Clear to auscultation bilaterally with no wheezes, rales, or rhonchi. Abdomen: Soft, completely nontender, nondistended, with good bowel sounds. There are no palpable pulsatile masses or hepatosplenomegaly. There is no guarding, rigidity, or rebound noted. Extremities: No evidence of cyanosis, clubbing, or edema. There are easily palpable peripheral pulses. Neuro:The patient is awake and alert, oriented to day, time, and place. Muscle strength is 5/5 in all 4 extremities. The patient has equal health information technician strength and equal pedal push and pull. There are no cerebellar signs. Emergency department treatment: bus driver/monitor, IV normal saline bolus Emergency department course: The patient was evaluated in room-B7. A complete history and physical was performed. Previous electronic medical records were reviewed. An IV lock was initiated and labs were drawn as above. The patient went for a repeat CT scan of the brain. Twelve-lead EKG was obtained as described above. An order was placed for continuous cardiac monitoring. The patient was in a normal sinus rhythm at a rate of 83. We have asked the patient to give us a urine specimen. I have reviewed the results of the laboratory studies and CT scan with the patient. I have discussed the case with the [facility] Hospitalist. Past Med/Surg History Problem List (Updated 08/22/23 @ 08:53 by Armida Peterson DO) Gait instability (Acute) UTI (urinary tract infection) Imbalance YAKOV (acute kidney injury) (Acute) Encounter for removal of bianca (Acute) Urinary incontinence History of CAD (coronary artery disease) (Acute) Anemia (Acute) Chest pain (Acute) Chest pain Diabetic retinopathy associated with type 2 diabetes mellitus Left nephrolithiasis Overactive bladder GERD (gastroesophageal reflux disease) hx Sleep apnea cpap nightly with 3lpm of oygen Depression Per records Glaucoma CAD (coronary artery disease) Occlusion of distal portion of left circumflex coronary artery Proteinuria Chronic kidney disease, stage 3a Vitamin D deficiency Diabetic nephropathy associated with type 2 diabetes mellitus Enteritis, inflammatory disorder of small intestine (Chronic Unknown) Fatigue (Acute) Generalized weakness (Acute) Knee pain (Acute) Radiculopathy, lumbar region Spinal stenosis of lumbar region Hypertension DVT prophylaxis Toe ulcer Pressure ulcer, stage III (Acute) Diabetes mellitus type 2 in obese Dyslipidemia Statin myopathy Peripheral neuropathy Hyponatremia Medical History STEMI (ST elevation myocardial infarction) History of recurrent UTI (urinary tract infection) Insomnia Per records Neuropathy per patient- hands and feet Hypertension Per records History of macular degeneration Chronic back pain Diabetes mellitus, type 2 IDDM Neurogenic claudication due to lumbar spinal stenosis History of nephrolithiasis Nasal bone fracture Cholecystitis, acute Surgical History Status post spinal surgery History of bilateral tubal ligation Hx of total knee arthroplasty bilateral S/P epidural steroid injection History of cholecystectomy History of colonoscopy History of cornea transplant bilateral History of cataract surgery bilateral History of appendectomy Family History Mother Breast cancer Aunt Colorectal cancer Diabetes Father Myocardial infarction Other No family history of adverse response to anesthesia No pertinent family history Denies family history of Ovarian cancer Prostate cancer Social History Smoking Status: Former smoker Tobacco Type: Cigarettes Age Quit Using Tobacco: 64; Cigarettes Per Day: 2 packs/day; Second Hand Exposure: No; Do You Dip or Chew Tobacco: No; Hx Alcohol Use: No Hx Substance Use: No Preferred Language: Ugandan Communication Ability: Effective Visual Impairment: No Limitations Hearing Ability: Normal Film Inspector Required: No Beliefs That Will Affect Care: None marital status: Current Living Situation: Senior Living Current Living Situation Comment: [facility] current occupational status: retired current occupation: Retired How many Children do You have: 2 Feels Safe at Home: Yes Safety Concerns: Feels Safe At This Time Childhood Exposure to Second-Hand Smoke: No Diet: regular caffeine: No during the past year weight has: remained stable Dental Care, Regularly: Yes Physical Activity Frequency: Does not Exercise Seatbelt Use: sometimes Sunscreen Use: Yes Assistive Devices: Walker Allergies Allergies Allergy/AdvReac Type Severity Reaction Status Date / Time latex Allergy Mild ON [facility] Verified 08/04/23 10:44 LIST-per patient- thinks rash niacin Allergy Unknown ON [facility] Verified 08/04/23 10:44 [From [facility] MED LIST Extended-Release] simvastatin Allergy Unknown ON Verified 08/04/23 10:44 [facility] LIST- unsure Home Meds Home Medications Medication Instructions Recorded Confirmed glucose 4 gram chewable tablet 1 tab PO UD PRN HYPOGLYCEMIA 11/26/17 08/22/23 omeprazole 20 mg capsule,delayed 20 mg PO QAM 11/26/17 08/22/23 release polyethylene glycol 3350 17 gram 17 g PO QAM 11/26/17 08/22/23 oral powder packet tolterodine 2 mg tablet 2 mg PO BID 11/26/17 08/22/23 acetaminophen 325 mg tablet 650 mg PO Q6H PRN Fever Or Pain 06/12/18 08/22/23 (Tylenol) nystatin 100,000 unit/gram topical 1 applic topical BID PRN RASH IN 11/24/22 08/22/23 cream ABD FOLDS NEEDED pen needle, diabetic, safety 30 #100 ea 01/12/23 05/26/23 gauge x 1/3" (Novofine Autocover) amoxicillin 500 mg capsule 2,000 mg PO DIRECTED PRN PRIOR 05/09/23 08/22/23 TO DENTAL PROCEDURES citalopram 20 mg tablet 20 mg PO QAM 05/09/23 08/22/23 fluorometholone 0.1 % eye 1 drp ophthalmic (eye) DIRECTED 05/09/23 08/22/23 drops,suspension hydrocortisone 1 % topical cream 1 applic topical BID PRN Rash 05/09/23 08/22/23 insulin glargine 100 unit/mL (3 8 unit subcut QAM 05/09/23 08/22/23 mL) subcutaneous pen (Lantus Solostar U-100 Insulin) lisinopril 40 mg tablet 40 mg PO QAM 05/09/23 08/22/23 psyllium husk 3.4 gram/5.4 gram 1 tsp PO DAILY 05/09/23 08/04/23 oral powder (Metamucil) vit C 250 mg-vit E 90 mg-zinc 40 1 tab PO BID 05/09/23 08/22/23 mg-copper 1 [id number] capsule (PreserVision AREDS-2) diclofenac sodium 1 % topical gel 4 g topical BID 05/21/23 08/22/23 gabapentin 100 mg capsule 100 mg PO TID 05/21/23 08/22/23 ticagrelor 90 mg tablet (Brilinta) mg 08/22/23 Previous Rx's Medication Instructions Recorded menthol 0.44 %-zinc oxide 20.6 % 1 applic topical BID PRN skin 07/23/21 topical ointment in packet irritation #504 grams (Calmoseptine) ketoconazole 2 % topical cream 1 applic topical BID #30 grams 11/24/22 methenamine hippurate 1 gram tablet 1 g PO Q12H #180 tabs 02/12/23 spironolactone 25 mg tablet 25 mg PO BID #60 tabs 03/20/23 magnesium citrate 150 ml PO DAILY PRN No BM x 2 days 03/26/23 #296 mL metoprolol tartrate 50 mg tablet 50 mg PO BID #60 tabs 04/08/23 ticagrelor 90 mg tablet (Brilinta) 90 mg PO BID #60 tabs 04/08/23 gabapentin 800 mg tablet 800 mg PO TID #90 tabs 04/17/23 dulaglutide 4.5 mg/0.5 mL 4.5 mg (0.5 mL) subcut ONCE #2 mL 05/06/23 subcutaneous pen injector (Trulicity) aspirin 81 mg tablet,delayed 81 mg PO QAM #30 tabs 05/10/23 release isosorbide mononitrate 60 mg 60 mg PO DAILY #30 tabs 05/26/23 tablet,extended release 24 hr timolol 0.5 % eye drops 1 drp OPB QAM #5 mL 06/12/23 loperamide 2 mg capsule 2 mg PO QID #30 caps 06/18/23 silver sulfadiazine 1 % topical 1 applic topical BID #50 grams 06/18/23 cream (Silvadene) lorazepam 0.5 mg tablet 0.5 mg PO HS anxiety #30 tabs 07/02/23 melatonin 10 mg capsule 10 mg PO HS sleep #30 caps 08/04/23 insulin lispro 100 unit/mL 3 unit (0.03 mL) subcut TID #15 mL 08/13/23 subcutaneous pen (Humalog KwikPen (U-100) Insulin) atorvastatin 40 mg tablet 40 mg PO DAILY #30 tabs 08/20/23 quetiapine 50 mg tablet 50 mg PO HS #30 tabs 08/20/23 Results & Data (ED) Vital Signs Vital Signs - 24 hr 08/22/23 03:20 08/22/23 03:22 08/22/23 03:43 Temperature 36.6 C Temperature Source Temporal Artery Scan Pulse Rate 88 88 Pulse Rate [Apical] Pulse Rate from SpO2 Sensor Respiratory Rate 16 Respiratory Effort / Characteristics Non-Labored Spontaneous Respiratory Depth Normal Blood Pressure 106/55 L Blood Pressure [Right Arm] Blood Pressure Mean 72 Blood Pressure Mean [Right Arm] Pulse Oximetry 98 96 Oxygen Delivery Method Room Air Room Air Sepsis Recent Fever Within 48 Hours No Sepsis New/Unexplained Change in Mental Status No Sepsis Action Taken by Nursing No Action Required 08/22/23 03:45 08/22/23 04:00 08/22/23 04:00 Temperature Temperature Source Pulse Rate 87 Pulse Rate [Apical] 83 Pulse Rate from SpO2 Sensor 87 Respiratory Rate 16 15 Respiratory Effort / Characteristics Respiratory Depth Blood Pressure 97/52 L Blood Pressure [Right Arm] 106/53 L Blood Pressure Mean 67 Blood Pressure Mean [Right Arm] 70 Pulse Oximetry 96 96 98 Oxygen Delivery Method Room Air Room Air Sepsis Recent Fever Within 48 Hours Sepsis New/Unexplained Change in Mental Status Sepsis Action Taken by Nursing 08/22/23 05:30 Temperature Temperature Source Pulse Rate 84 Pulse Rate [Apical] Pulse Rate from SpO2 Sensor 84 Respiratory Rate 14 Respiratory Effort / Characteristics Respiratory Depth Blood Pressure 139/59 L Blood Pressure [Right Arm] Blood Pressure Mean 85 Blood Pressure Mean [Right Arm] Pulse Oximetry 96 Oxygen Delivery Method Sepsis Recent Fever Within 48 Hours Sepsis New/Unexplained Change in Mental Status Sepsis Action Taken by Nursing Laboratory Data 08/22/23 03:31 08/22/23 03:31 Lab Results 08/22/23 08/22/23 Range/Units 03:31 04:35 WBC 5.70 (4.8-10.8) K/ul RBC 3.23 L (4.20-5.40) M/uL Hgb 9.4 L (12.0-16.0) g/dl Hct 28.6 L (37.0-47.0) % MCV 88.5 (80.0-100.0) fL MCH 29.1 (25.0-34.0) pg MCHC 32.9 (32.0-36.0) g/dL RDW Std Deviation 44.3 (36.4-46.3) fL RDW Coeff of Brian 13.7 (11.5-14.5) % Plt Count 220 (130-400) K/uL MPV 9.4 (9.4-12.4) fL Immature Gran % (Auto) 0.5 % Neut % (Auto) 59.4 % Lymph % (Auto) 25.4 % [place] % (Auto) 11.9 % Eos % (Auto) 2.3 % Baso % (Auto) 0.5 % Neut # (Auto) 3.38 (1.40-6.50) K/uL Lymph # (Auto) 1.45 (1.20-3.40) K/uL [place] # (Auto) 0.68 H (0.11-0.59) K/uL Eos # (Auto) 0.13 (0.00-0.50) K/uL Baso # (Auto) 0.03 (0.00-0.20) K/uL Immature Gran # (Auto) 0.03 (0.01-0.20) K/uL Sodium 136 (136-145) mmol/L Potassium 4.4 (3.5-5.1) mmol/L Chloride 115 H (98-107) mmol/L Carbon Dioxide 14 L (21-32) mmol/L Anion Gap 7 (3-11) BUN 63 H (6-23) mg/dl Creatinine 2.28 H (0.6-1.2) mg/dl Est Cr Clr Drug Dosing 19.5 ml/min Est GFR ( Amer) 23.4 ml/min Est GFR (Non-Af Amer) 20.2 ml/min BUN/Creatinine Ratio 27.6 H (10-20) Glucose 134 H (70-99(Fasting)) mg/dl Calcium 9.0 (8.6-10.3) mg/dl Total Bilirubin 0.3 (0.2-1.0) mg/dl AST 11 L (13-39) U/L ALT 13 (7-52) U/L Alkaline Phosphatase 90 (34-104) U/L Total Creatine Kinase 40 (26-192) U/L Total Protein 6.9 (6.0-8.3) gm/dl Albumin 4.0 (3.4-5.0) gm/dl Globulin 2.9 (2.5-4.0) gm/dl Albumin/Globulin Ratio 1.4 (0.9-2) TSH 1.667 (0.300-4.500) uIu/ml Urine Color Yellow Urine Appearance Turbid A (Clear) Urine pH 5.0 (4.5-7.5) Ur Specific [place] 1.018 (1.000-1.030) Urine Protein 1+ H (Negative) Urine Glucose (UA) Negative (Negative) Urine Ketones Trace H (Negative) Urine Blood Negative (Negative) Urine Nitrite Positive A (Negative) Urine Bilirubin Negative (Negative) Urine Urobilinogen Negative (Negative) Ur Leukocyte Esterase 2+ H (Negative) Urine WBC (Auto) 21-50 H (0-5) /hpf Urine RBC (Auto) 11-20 H (0-2) /hpf U Hyaline Cast (Auto) 11-20 H (0-2) /lpf U Epithel Cells (Auto) >20 H (0-2) /hpf Urine Bacteria (Auto) 3+ H (None Seen) Urine Yeast Present A (None Prsent) Administered Medications Aspirin (Aspirin 81 Mg Ectab) 81 mg PO [facility] Stop: 09/21/23 08:59 Last Admin: 08/22/23 09:02 Dose: 81 mg Documented By: MARIA TERESA Atorvastatin Calcium (Atorvastatin 40 Mg Tab) 40 mg PO DAILY [facility] Stop: 09/21/23 08:59 Last Admin: 08/22/23 09:02 Dose: 40 mg Documented By: MARIA TERESA Citalopram Hydrobromide (Citalopram 20 Mg Tab) 20 mg PO [facility] Stop: 09/21/23 08:59 Last Admin: 08/22/23 09:02 Dose: 20 mg Documented By: MARIA TERESA Diclofenac Sodium (Diclofenac Sod 1% Gel 100 Gm Tube) 4 gm EXT BID [facility]; Protocol Stop: 09/21/23 08:59 Last Admin: 08/22/23 09:02 Dose: 4 gm Documented By: MARIA TERESA Gabapentin (Gabapentin 100 Mg Cap) 100 mg PO TID [facility] Stop: 09/21/23 08:59 Last Admin: 08/22/23 13:31 Dose: 100 mg Documented By: Admin: 08/22/23 09:01 Dose: 100 mg Documented By: MARIA TERESA Heparin Sodium (Porcine) (Heparin Sod 5,000 Unit/0.5 Ml Vial) 5,000 units SQ Q12 [facility] Stop: 09/21/23 08:59 Last Admin: 08/22/23 09:01 Dose: 5,000 units Documented By: MARIA TERESA Lactated Ringer's (Lr) 1,000 mls @ 100 mls/hr IV .Q10H [facility] Stop: 09/21/23 06:05 Last Admin: 08/22/23 15:42 Dose: 100 mls/hr Documented By: Infusion: 08/22/23 15:42 Dose: Infused Documented By: Admin: 08/22/23 07:33 Dose: 100 mls/hr Documented By: MARIA TERESA Piperacillin Sod/Tazobactam (Sod 4.5 gm/ Dextrose) 100 mls @ 25 mls/hr IV Q12H [facility]; Protocol Stop: 08/27/23 14:59 Last Admin: 08/22/23 15:42 Dose: 25 mls/hr Documented By: RADHA Insulin Aspart (Insulin Aspart Per Unit Charge) 0 units SC ACHS [facility] Stop: 09/21/23 07:29 Last Admin: 08/22/23 17:29 Dose: 4 units Documented By: RADHA Co-signed By: MICHELLE Admin: 08/22/23 13:09 Dose: Not Given Documented By: RADHA Co-signed By: LITO Admin: 08/22/23 09:10 Dose: 4 units Documented By: MARIA TERESA Co-signed By: LITO Insulin Glargine (Lantus Per Unit Charge) 5 units SQ DAILY [facility] Stop: 09/21/23 08:59 Last Admin: 08/22/23 09:10 Dose: 5 units Documented By: MARIA TERESA Co-signed By: LITO Isosorbide Mononitrate (Isosorbide [place] Extended Rel 60 Mg Tabcr) 60 mg PO DAILY [facility] Stop: 09/21/23 08:59 Last Admin: 08/22/23 09:01 Dose: 60 mg Documented By: MARIA TERESA Loperamide HCl (Loperamide Hcl 2 Mg Cap) 2 mg PO QID [facility] Stop: 09/21/23 08:59 Last Admin: 08/22/23 17:26 Dose: 2 mg Documented By: Admin: 08/22/23 12:24 Dose: 2 mg Documented By: Admin: 08/22/23 09:01 Dose: 2 mg Documented By: MARIA TERESA Metoprolol Tartrate (Metoprolol Tartrate 50 Mg Tab) 50 mg PO BID@0730,2100 [facility] Stop: 09/21/23 07:29 Last Admin: 08/22/23 07:33 Dose: 50 mg Documented By: MARIA TERESA Pantoprazole Sodium (Pantoprazole 40 Mg Tab) 40 mg PO DAILY [facility] Stop: 09/21/23 08:59 Last Admin: 08/22/23 09:01 Dose: 40 mg Documented By: MARIA TERESA Polyethylene Glycol (Polyethylene (Miralax) 17 Gm Pack) 17 gm PO QAM [facility] Stop: 09/21/23 08:59 Last Admin: 08/22/23 09:00 Dose: 17 gm Documented By: MARIA TERESA Prenat Multivit/[place]/Iron/Folic Ac ( Vitamin 1 Tab) 1 tab PO QAM [facility] Stop: 09/21/23 08:59 Last Admin: 08/22/23 09:00 Dose: 1 tab Documented By: MARIA TERESA Ticagrelor (Ticagrelor 90 Mg Tab) 90 mg PO BID [facility] Stop: 09/21/23 08:59 Last Admin: 08/22/23 09:00 Dose: 90 mg Documented By: MARIA TERESA Discontinued Medications Sodium Chloride (Nss) 500 mls @ 999 mls/hr IV .Q31M ONE Stop: 08/22/23 05:23 Last Infusion: 08/22/23 05:35 Dose: Infused Documented By: Admin: 08/22/23 05:00 Dose: 999 mls/hr Documented By: SHELLI Piperacillin Sod/Tazobactam (Sod 4.5 gm/ Dextrose) 100 mls @ 200 mls/hr IV NOW ONE; Protocol Stop: 08/22/23 07:14 Last Infusion: 08/22/23 09:31 Dose: Infused Documented By: MARIA TERESA Admin: 08/22/23 07:33 Dose: 200 mls/hr Documented By: MARIA TERESA Imaging Data Radiologist's Impression: Head CT 08/22/23 04:00 Exam(s): CT HEAD Without Contrast EXAM: CT Head Without Intravenous Contrast CLINICAL HISTORY: Reason for exam: gait instability. TECHNIQUE: Axial computed tomography images of the head/brain without intravenous contrast. CTDI is 36.55 mGy and DLP is 624.41 mGy-cm. Automated exposure control was utilized for the study. A dose lowering technique was utilized adhering to the principles of ALARA. COMPARISON: 08/06/2023. FINDINGS: Brain: Age-appropriate generalized atrophy. No acute stroke. Moderate supratentorial periventricular and subcortical white matter changes. No acute hemorrhage or abnormal extra-axial fluid collection. Ventricles: No hydrocephalus. No midline shift. Bones/joints: Unremarkable. No acute fracture. Soft tissues: Unremarkable. Sinuses: Unremarkable as visualized. No acute sinusitis. IMPRESSION: No acute abnormality. Non-specific white matter changes, most commonly seen with small vessel disease. Electronically signed by: Petar Mijares M.D. 08/22/23 04:45 AM Discharge Plan Visit Data Chief Complaint: Confusion Stated Complaint: CHANGE IN MENTAL STATUS ED Provider: Armida Peterson Discharge Problem: YAKOV (acute kidney injury), Gait instability Discharge Instructions Interventions: ED Discharge Assessment Last Done: 08/22/23 06:06
[2023-08-22 05:29] LABS: Appearance Urine Turbid (Clear); Bacteria Urine Automated 3+ (None Seen); Bilirubin Urine Negative (Negative); Blood Urine Negative (Negative); Color Urine Yellow; Epithelial Cell Urine Auto >20 /hpf (0-2); Glucose Urine UA Negative (Negative); Ketones Urine Trace (Negative); Leukocyte Esterase Urine 2+ (Negative); Nitrite Urine Positive (Negative); Protein Urine 1+ (Negative); Specific Gravity Urine 1.018 (1.000-1.030); Urobilinogen Urine Negative (Negative); WBC Urine Automated 21-50 /hpf (0-5)
--- NOTE | 2023-08-22 05:59 | History & Physical Report ---
Date of Service August 22, 2023 Assessment & Plan (1) YAKOV (acute kidney injury): Plan: Patient with elevation of BUN and Cr from baseline. BUN= 63 from most recent value of 37 on 06/24/23. Cr=2.28 from 1.35. Potassium is acceptable. She does have a low HCO3 at 14. No anion gap. YAKOV likely multifactorial - patient endorses decreased oral intake. She is on Lisinopril and Spironolactone -Admit to medical with telemetry -Check CK, random urine Na and Cr for FeNA calculation -LR at 1oo mL/hr x 1L ordered -Repeat chemistry -Avoid nephrotoxic agents -Lisinopril and Spironolactone on hold -Decreased Gabapentin from 900mg po TID to 100mg po TID for renal function -Monitor UOP (2) UTI (urinary tract infection): Plan: UA suggestive of infection. Patient has grown out Enterococcus as well as E. coli in prior urine cultures, sensitive to Zosyn. She is afebrile, HD stable. Does not really endorse many urinary complaints, however, in the setting of YAKOV will treat -Follow urine culture -Zosyn (3) Imbalance: Plan: Etiology unclear. YAKOV may be contributing to generalized weakness and imbalance? Possible post-concussive syndrome. Patient reports her balance getting worse following a fall several weeks ago with head trauma and LOC. CT of the head is unremarkable. Neuro exam is nonfocal -Maintain fall precautions -PT/OT evaluation appreciated (4) History of CAD (coronary artery disease): Plan: Chronic. Patient with STEMI in March 2023 s/p MAUREEN to LCx. She denies chest pain or SOB -Continue ASA and Brillinta -Continue Metoprolol -Continue Atorvastatin -Continue Isosorbide mononitrate -Holding Lisinopril and Spironolactone for now Plan ROMAN -CPAP qHS with 3L supplemental O2 Anxiety -Chronic. Continue Citalopram, Lorazepam and Seroquel HS GERD - chronic -Protonix 40mg po daily while inpatient F/E/N- LR at 100mL/hr x 1L, electrolytes WNL, repeat chemistry in AM to assess HCO3 and renal function Ppx - Heparin Code - DNR/DNI Dispo - Admit to medical with telemetry History of Present Illness Chief Complaint: weakness, fatigue, confusion Primary Care Provider: Levon Adam DO Stefany Arroyo is a 77yo female with history of CAD s/p STEMI in March 2023 with MAUREEN to LCx, HTN, DM and ROMAN presenting from [facility] with several weeks of generalized weakness, imbalance and episodes of confusion. Patient reports frequent falls. She had a trip and fall a couple of weeks ago in which she hit her head on a concrete step. She reports she lost consciousness but is uncertain for how long. She thinks that perhaps her imbalance has been worse since then. She has not been eating or drinking as well over the last several days. No chest pain, cough, SOB, abdominal pain, nausea, vomiting, diarrhea or constipation. No additional complaints During encounter, patient seems to have waxing and waning mental status. She is able to answer all orientation questions and provide some history of her reason for coming to the ER. Then she asked me if we can transfer her to [facility]. When I told her that she's already at [facility] she felt very confused. Allergies Allergy/AdvReac Type Severity Reaction Status Date / Time latex Allergy Mild ON [facility] Verified 08/04/23 10:44 LIST-per patient- thinks rash niacin Allergy Unknown ON [facility] Verified 08/04/23 10:44 [From [email or web address] MED LIST Extended-Release] simvastatin Allergy Unknown ON Verified 08/04/23 10:44 [facility] L[facility]- unsure Home Medications Medication Instructions Recorded Confirmed Type glucose 4 gram chewable tablet 1 tab PO UD PRN HYPOGLYCEMIA 11/26/17 08/22/23 History omeprazole 20 mg capsule,delayed 20 mg PO QAM 11/26/17 08/22/23 History release polyethylene glycol 3350 17 gram 17 g PO QAM 11/26/17 08/22/23 History oral powder packet tolterodine 2 mg tablet 2 mg PO BID 11/26/17 08/22/23 History acetaminophen 325 mg tablet 650 mg PO Q6H PRN Fever Or Pain 06/12/18 08/22/23 History (Tylenol) menthol 0.44 %-zinc oxide 20.6 % 1 applic topical BID PRN skin 07/23/21 08/04/23 Rx topical ointment in packet irritation #504 grams (Calmoseptine) ketoconazole 2 % topical cream 1 applic topical BID #30 grams 11/24/22 08/22/23 Rx nystatin 100,000 unit/gram topical 1 applic topical BID PRN RASH IN 11/24/22 08/22/23 History cream ABD FOLDS NEEDED pen needle, diabetic, safety 30 #100 ea 01/12/23 05/26/23 History gauge x 1/3" (Novofine Autocover) methenamine hippurate 1 gram tablet 1 g PO Q12H #180 tabs 02/12/23 08/22/23 Rx spironolactone 25 mg tablet 25 mg PO BID #60 tabs 03/20/23 08/22/23 Rx magnesium citrate 150 ml PO DAILY PRN No BM x 2 days 03/26/23 08/22/23 Rx #296 mL metoprolol tartrate 50 mg tablet 50 mg PO BID #60 tabs 04/08/23 08/22/23 Rx ticagrelor 90 mg tablet (Brilinta) 90 mg PO BID #60 tabs 04/08/23 08/22/23 Rx gabapentin 800 mg tablet 800 mg PO TID #90 tabs 04/17/23 08/22/23 Rx dulaglutide 4.5 mg/0.5 mL 4.5 mg (0.5 mL) subcut ONCE #2 mL 05/06/23 08/22/23 Rx subcutaneous pen injector (Trulicity) amoxicillin 500 mg capsule 2,000 mg PO DIRECTED PRN PRIOR 05/09/23 08/22/23 History TO DENTAL PROCEDURES citalopram 20 mg tablet 20 mg PO QAM 05/09/23 08/22/23 History fluorometholone 0.1 % eye 1 drp ophthalmic (eye) DIRECTED 05/09/23 08/22/23 History drops,suspension hydrocortisone 1 % topical cream 1 applic topical BID PRN Rash 05/09/23 08/22/23 History insulin glargine 100 unit/mL (3 8 unit subcut QAM 05/09/23 08/22/23 History mL) subcutaneous pen (Lantus Solostar U-100 Insulin) lisinopril 40 mg tablet 40 mg PO QAM 05/09/23 08/22/23 History psyllium husk 3.4 gram/5.4 gram 1 tsp PO DAILY 05/09/23 08/04/23 History oral powder (Metamucil) vit C 250 mg-vit E 90 mg-zinc 40 1 tab PO BID 05/09/23 08/22/23 History mg-copper 1 [id number] capsule (PreserVision AREDS-2) aspirin 81 mg tablet,delayed 81 mg PO QAM #30 tabs 05/10/23 08/22/23 Rx release diclofenac sodium 1 % topical gel 4 g topical BID 05/21/23 08/22/23 History gabapentin 100 mg capsule 100 mg PO TID 05/21/23 08/22/23 History isosorbide mononitrate 60 mg 60 mg PO DAILY #30 tabs 05/26/23 08/22/23 Rx tablet,extended release 24 hr timolol 0.5 % eye drops 1 drp OPB QAM #5 mL 06/12/23 08/22/23 Rx loperamide 2 mg capsule 2 mg PO QID #30 caps 06/18/23 08/22/23 Rx silver sulfadiazine 1 % topical 1 applic topical BID #50 grams 06/18/23 08/22/23 Rx cream (Silvadene) lorazepam 0.5 mg tablet 0.5 mg PO HS anxiety #30 tabs 07/02/23 08/22/23 Rx melatonin 10 mg capsule 10 mg PO HS sleep #30 caps 08/04/23 08/22/23 Rx insulin lispro 100 unit/mL 3 unit (0.03 mL) subcut TID #15 mL 08/13/23 08/22/23 Rx subcutaneous pen (Humalog KwikPen (U-100) Insulin) atorvastatin 40 mg tablet 40 mg PO DAILY #30 tabs 08/20/23 08/22/23 Rx quetiapine 50 mg tablet 50 mg PO HS #30 tabs 08/20/23 08/22/23 Rx ticagrelor 90 mg tablet (Brilinta) mg 08/22/23 History Past Med/Surg History Problem List (Updated 08/22/23 @ 05:58 by Margi Lopez DO) UTI (urinary tract infection) Imbalance YAKOV (acute kidney injury) Encounter for removal of bianca (Acute) Urinary incontinence History of CAD (coronary artery disease) (Acute) Anemia (Acute) Chest pain (Acute) Chest pain Diabetic retinopathy associated with type 2 diabetes mellitus Left nephrolithiasis Overactive bladder GERD (gastroesophageal reflux disease) hx Sleep apnea cpap nightly with 3lpm of oygen Depression Per records Glaucoma CAD (coronary artery disease) Occlusion of distal portion of left circumflex coronary artery Proteinuria Chronic kidney disease, stage 3a Vitamin D deficiency Diabetic nephropathy associated with type 2 diabetes mellitus Enteritis, inflammatory disorder of small intestine (Chronic Unknown) Fatigue (Acute) Generalized weakness (Acute) Knee pain (Acute) Radiculopathy, lumbar region Spinal stenosis of lumbar region Hypertension DVT prophylaxis Toe ulcer Pressure ulcer, stage III (Acute) Diabetes mellitus type 2 in obese Dyslipidemia Statin myopathy Peripheral neuropathy Hyponatremia Medical History STEMI (ST elevation myocardial infarction) History of recurrent UTI (urinary tract infection) Insomnia Per records Neuropathy per patient- hands and feet Hypertension Per records History of macular degeneration Chronic back pain Diabetes mellitus, type 2 IDDM Neurogenic claudication due to lumbar spinal stenosis History of nephrolithiasis Nasal bone fracture Cholecystitis, acute Surgical History Status post spinal surgery History of bilateral tubal ligation Hx of total knee arthroplasty bilateral S/P epidural steroid injection History of cholecystectomy History of colonoscopy History of cornea transplant bilateral History of cataract surgery bilateral History of appendectomy Family History Mother Breast cancer Aunt Colorectal cancer Diabetes Father Myocardial infarction Other No family history of adverse response to anesthesia No pertinent family history Denies family history of Ovarian cancer Prostate cancer Social History Smoking Status: Former smoker Tobacco Type: Cigarettes Age Quit Using Tobacco: 64; Cigarettes Per Day: 2 packs/day; Second Hand Exposure: No; Do You Dip or Chew Tobacco: No; Hx Alcohol Use: No Hx Substance Use: No Preferred Language: Lithuanian Communication Ability: Effective Visual Impairment: No Limitations Hearing Ability: Normal 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 Beliefs That Will Affect Care: None marital status: Current Living Situation: Personal Care Facility Current Living Situation Comment: [facility] current occupational status: retired current occupation: Retired How many Children do You have: 2 Feels Safe at Home: Yes Childhood Exposure to Second-Hand Smoke: No Diet: regular caffeine: No during the past year weight has: remained stable Dental Care, Regularly: Yes Physical Activity Frequency: Does not Exercise Seatbelt Use: sometimes Sunscreen Use: Yes Assistive Devices: Glasses and Walker Review of Systems Review of Systems: All systems reviewed & are unremarkable except as noted in HPI & below Physical Exam Physical Exam: General: patient resting comfortably, NAD, non-toxic in appearance, AA&O x 4 Skin: warm, dry, intact, no rashes or lesions HEENT: NC/AT, PERRL, EOMI, anicteric sclera, conjunctiva without injection, external ear normal to inspection and nontender, nares patent, dry mucus membranes, dentition intact, no oropharyngeal lesions, neck supple, trachea midline, no LAD, no thyromegaly, no JVD Heart: +S1/S2, regular, no m/r/g Lungs: equal air entry bilaterally, no rales/rhonchi/wheezes Abd: +BS, soft, NT/ND, no masses/organomegaly/ascites Ext: warm, 2+ pulses in UE/LE bilaterally, no clubbing/cyanosis or edema Neuro: nonfocal, patient AA&O x 4, speech intact, no facial droop, moving all extremities on command with equal strength 5/5 Results & Data Results & Data Vital Signs (Past 12 Hours) Vital Signs Temp Pulse Pulse Resp BP BP Pulse Ox 08/22/23 04:00 96 08/22/23 03:45 83 16 106/53 L 96 08/22/23 03:43 96 08/22/23 03:22 36.6 C 88 16 106/55 L 98 08/22/23 03:20 88 O2 Del Method 08/22/23 04:00 Room Air 08/22/23 03:45 Room Air 08/22/23 03:43 Room Air 08/22/23 03:22 Room Air 08/22/23 03:20 Laboratory Results Laboratory Results WBC 5.70 K/ul (4.8-10.8) 08/22/23 03:31 RBC 3.23 M/uL (4.20-5.40) L 08/22/23 03:31 Hgb 9.4 g/dl (12.0-16.0) L 08/22/23 03:31 Hct 28.6 % (37.0-47.0) L 08/22/23 03:31 MCV 88.5 fL (80.0-100.0) 08/22/23 03:31 MCH 29.1 pg (25.0-34.0) 08/22/23 03:31 MCHC 32.9 g/dL (32.0-36.0) 08/22/23 03:31 RDW Std Deviation 44.3 fL (36.4-46.3) 08/22/23 03:31 RDW Coeff of Brian 13.7 % (11.5-14.5) 08/22/23 03:31 Plt Count 220 K/uL (130-400) 08/22/23 03:31 MPV 9.4 fL (9.4-12.4) 08/22/23 03:31 Immature Gran % (Auto) 0.5 % 08/22/23 03:31 Neut % (Auto) 59.4 % 08/22/23 03:31 Lymph % (Auto) 25.4 % 08/22/23 03:31 Rowan % (Auto) 11.9 % 08/22/23 03:31 Eos % (Auto) 2.3 % 08/22/23 03:31 Baso % (Auto) 0.5 % 08/22/23 03:31 Neut # (Auto) 3.38 K/uL (1.40-6.50) 08/22/23 03:31 Lymph # (Auto) 1.45 K/uL (1.20-3.40) 08/22/23 03:31 Rowan # (Auto) 0.68 K/uL (0.11-0.59) H 08/22/23 03:31 Eos # (Auto) 0.13 K/uL (0.00-0.50) 08/22/23 03:31 Baso # (Auto) 0.03 K/uL (0.00-0.20) 08/22/23 03:31 Immature Gran # (Auto) 0.03 K/uL (0.01-0.20) 08/22/23 03:31 Sodium 136 mmol/L (136-145) 08/22/23 03:31 Potassium 4.4 mmol/L (3.5-5.1) 08/22/23 03:31 Chloride 115 mmol/L (98-107) H 08/22/23 03:31 Carbon Dioxide 14 mmol/L (21-32) L 08/22/23 03:31 Anion Gap 7 (3-11) 08/22/23 03:31 BUN 63 mg/dl (6-23) H 08/22/23 03:31 Creatinine 2.28 mg/dl (0.6-1.2) H 08/22/23 03:31 Est Cr Clr Drug Dosing 19.5 ml/min 08/22/23 03:31 Est GFR ( Amer) 23.4 ml/min 08/22/23 03:31 Est GFR (Non-Af Amer) 20.2 ml/min 08/22/23 03:31 BUN/Creatinine Ratio 27.6 (10-20) H 08/22/23 03:31 Glucose 134 mg/dl (70-99(Fasting)) H 08/22/23 03:31 Calcium 9.0 mg/dl (8.6-10.3) 08/22/23 03:31 Total Bilirubin 0.3 mg/dl (0.2-1.0) 08/22/23 03:31 AST 11 U/L (13-39) L 08/22/23 03:31 ALT 13 U/L (7-52) 08/22/23 03:31 Alkaline Phosphatase 90 U/L (34-104) 08/22/23 03:31 Total Protein 6.9 gm/dl (6.0-8.3) 08/22/23 03:31 Albumin 4.0 gm/dl (3.4-5.0) 08/22/23 03:31 Globulin 2.9 gm/dl (2.5-4.0) 08/22/23 03:31 Albumin/Globulin Ratio 1.4 (0.9-2) 08/22/23 03:31 TSH 1.667 uIu/ml (0.300-4.500) 08/22/23 03:31 Urine Color Yellow 08/22/23 04:35 Urine Appearance Turbid (Clear) A 08/22/23 04:35 Urine pH 5.0 (4.5-7.5) 08/22/23 04:35 Ur Specific [place] 1.018 (1.000-1.030) 08/22/23 04:35 Urine Protein 1+ (Negative) H 08/22/23 04:35 Urine Glucose (UA) Negative (Negative) 08/22/23 04:35 Urine Ketones Trace (Negative) H 08/22/23 04:35 Urine Blood Negative (Negative) 08/22/23 04:35 Urine Nitrite Positive (Negative) A 08/22/23 04:35 Urine Bilirubin Negative (Negative) 08/22/23 04:35 Urine Urobilinogen Negative (Negative) 08/22/23 04:35 Ur Leukocyte Esterase 2+ (Negative) H 08/22/23 04:35 Urine WBC (Auto) 21-50 /hpf (0-5) H 08/22/23 04:35 Urine RBC (Auto) 11-20 /hpf (0-2) H 08/22/23 04:35 U Hyaline Cast (Auto) 11-20 /lpf (0-2) H 08/22/23 04:35 U Epithel Cells (Auto) >20 /hpf (0-2) H 08/22/23 04:35 Urine Bacteria (Auto) 3+ (None Seen) H 08/22/23 04:35 Urine Yeast Present (None Prsent) A 08/22/23 04:[address] 08/22/23 04:00 Exam(s): CT HEAD Without Contrast EXAM: CT Head Without Intravenous Contrast CLINICAL HISTORY: Reason for exam: gait instability. TECHNIQUE: Axial computed tomography images of the head/brain without intravenous contrast. CTDI is 36.55 mGy and DLP is 624.41 mGy-cm. Automated exposure control was utilized for the study. A dose lowering technique was utilized adhering to the principles of ALARA. COMPARISON: 08/06/2023. FINDINGS: Brain: Age-appropriate generalized atrophy. No acute stroke. Moderate supratentorial periventricular and subcortical white matter changes. No acute hemorrhage or abnormal extra-axial fluid collection. Ventricles: No hydrocephalus. No midline shift. Bones/joints: Unremarkable. No acute fracture. Soft tissues: Unremarkable. Sinuses: Unremarkable as visualized. No acute sinusitis. IMPRESSION: No acute abnormality. Non-specific white matter changes, most commonly seen with small vessel disease. Electronically signed by: Petar Mijares M.D. 08/22/23 04:45 AM Code Status & VTE Plan VTE Prophylaxis Plan VTE Prophylaxis will be ordered: Yes PG Care Time/CCT Total # of Minutes Spent Total Time Spent with Patient: Total time spent is greater than 50% in coordination of care (as documented) at patient's floor/unit and/or counseling patient: Coding Level of Care Code 98133 INT INP/OBS CARE MIN Diagnoses YAKOV (acute kidney injury) N17.9 UTI (urinary tract infection) N39.0 Imbalance R26.89 History of CAD (coronary artery disease) Z86.79
[2023-08-22] MEDS ORDERED: CARBOHYDRATES FOR HYPOGLYCEMIA PO PRN (06:06)
[2023-08-22] MEDS ORDERED: DEXTROSE 50% 50 ML SYRINGE IV PRN (06:06)
[2023-08-22] MEDS ORDERED: GLUCOSE 40% GEL 15 GM TUBE PO PRN (06:06)
[2023-08-22] MEDS ORDERED: GLUCAGON FOR INJ 1 MG VIAL SQ PRN (06:06)
[2023-08-22] MEDS ORDERED: GLUCOSE 10 TAB/TUBE PO PRN (06:06)
[2023-08-22] MEDS ORDERED: ONDANSETRON INJ 2 MG/ML 2 ML VIAL IV PRN (06:06)
--- NOTE | 2023-08-22 07:13 | Electrocardiogram Report ---
Test Reason : Blood Pressure : / mmHG Vent. Rate : 088 BPM Atrial Rate : 088 BPM P-R Int : 162 ms QRS Dur : 146 ms QT Int : 392 ms P-R-T Axes : 057 022 018 degrees QTc Int : 474 ms Normal sinus rhythm Right bundle branch block Cannot rule out Inferior infarct , age undetermined Abnormal ECG When compared with ECG of 09-MAY-2023 21:05, No significant change was found Confirmed by Arnie Williamson ([id number]) on 08/22/2023 7:12:51 AM Referred By: REFERRED SELF Confirmed By:Martín Williamson
[2023-08-22] MEDS: METOPROLOL TARTRATE 50 MG TAB PO SCH (07:33)
[2023-08-22] MEDS: PIPER/TAZO 4.5g in D5W MINI-B 100 ML IV ONE (07:33)
[2023-08-22] MEDS: LACTATED RINGER'S 1,000 ML IV SCH (07:33)
--- NOTE | 2023-08-22 07:34 | Hospitalist Progress Note ---
Date of Service August 22, 2023 Assessment & Plan (1) YAKOV (acute kidney injury): Plan: Patient with elevation of BUN and Cr from baseline. Potassium is acceptable. despite low serum bicarb No anion gap. YAKOV likely multifactorial - patient endorses decreased oral intake. out pt meds include Lisinopril and Spironolactone, now on hold crystalloid volume resuscitation -Decreased Gabapentin from 900mg po TID to 100mg po TID for renal function (2) UTI (urinary tract infection): Plan: UA suggestive of infection. Patient has grown out Enterococcus as well as E. coli in prior urine cultures, sensitive to Zosyn. -Follow urine culture for sensitivities (3) Imbalance: Plan: Etiology unclear. YAKOV may be contributing to generalized weakness and imbalance? Possible post-concussive syndrome. Patient reports her balance getting worse following a fall several weeks ago with head trauma and LOC. CT of the head is with small vessel disease, has known CAD -Maintain fall precautions -PT/OT evaluation appreciated (4) History of CAD (coronary artery disease): Plan: Chronic. Patient with STEMI in March 2023 s/p MAUREEN to LCx. normal EF at that time -Continue ASA and Brillinta, Metoprolol, Isosorbide mononitrate Atorvastatin Lisinopril and Spironolactone for now Plan ROMAN -CPAP qHS with 3L supplemental O2 Anxiety -Chronic. Continue Citalopram, Lorazepam and Seroquel HS GERD - chronic -Protonix 40mg po daily while inpatient Ppx - Heparin Code - DNR/DNI Admission and Anticipated Discharge Date Admission Date: August 22, 2023 Subjective pt was seen after going to bathroom did have diarrhea on bed and in trail to bathroom states it is common to have diarrhea does not feel much improved, but just admitted this am Physical Exam Physical Exam: awake and alert cardiac is regular lungs are clear some low back pain but central Results & Data Results & Data Vital Signs (Past 12 Hours) Vital Signs Temp Pulse Pulse Resp BP BP Pulse Ox 08/22/23 07:13 80 08/22/23 06:30 80 14 123/64 98 08/22/23 06:00 14 121/56 L 98 08/22/23 05:30 84 14 139/59 L 96 08/22/23 04:00 87 15 97/52 L 98 08/22/23 04:00 96 08/22/23 03:45 83 16 106/53 L 96 08/22/23 03:43 96 08/22/23 03:22 97.8 F 88 16 106/55 L 98 08/22/23 03:20 88 O2 Del Method 08/22/23 07:13 08/22/23 06:30 08/22/23 06:00 08/22/23 05:30 08/22/23 04:00 08/22/23 04:00 Room Air 08/22/23 03:45 Room Air 08/22/23 03:43 Room Air 08/22/23 03:22 Room Air 08/22/23 03:20 PG Care Time/CCT Total # of Minutes Spent Total Time Spent with Patient: Total time spent is greater than 50% in coordination of care (as documented) at patient's floor/unit and/or counseling patient: Coding Level of Care Code None Diagnoses YAKOV (acute kidney injury) N17.9 UTI (urinary tract infection) N39.0 Imbalance R26.89 History of CAD (coronary artery disease) Z86.79
[2023-08-22] MEDS: POLYETHYLENE (MIRALAX) 17 GM PACK PO SCH (09:00)
[2023-08-22] MEDS: TICAGRELOR 90 MG TAB PO SCH (09:00)
[2023-08-22] MEDS: PRENATAL VITAMIN 1 TAB PO SCH (09:00)
[2023-08-22] MEDS: ISOSORBIDE MONO EXTENDED REL 60 MG TABCR PO SCH (09:01)
[2023-08-22] MEDS: GABAPENTIN 100 MG CAP PO SCH (09:01)
[2023-08-22] MEDS: PANTOprazole 40 MG TAB PO SCH (09:01)
[2023-08-22] MEDS: HEPARIN SOD 5,000 UNIT/0.5 ML VIAL SQ SCH (09:01)
[2023-08-22] MEDS: LOPERAMIDE HCL 2 MG CAP PO SCH (09:01)
[2023-08-22] MEDS: CITALOPRAM 20 MG TAB PO SCH (09:02)
[2023-08-22] MEDS: ATORVASTATIN 40 MG TAB PO SCH (09:02)
[2023-08-22] MEDS: DICLOFENAC SOD 1% GEL 100 GM TUBE EXT SCH (09:02)
[2023-08-22] MEDS: ASPIRIN 81 MG ECTAB PO SCH (09:02)
[2023-08-22] MEDS: LANTUS PER UNIT CHARGE SQ SCH (09:10)
[2023-08-22] MEDS: INSULIN ASPART PER UNIT CHARGE SC SCH (09:10)
[2023-08-22] MEDS: PIPERACILLIN/TAZOBACTAM 4.5 GM in DEXTROSE 5% MINI-B 100 ML IV SCH (15:42)
[2023-08-22] MEDS: LORazepam 0.5 MG TAB PO SCH (20:05)
[2023-08-22] MEDS: QUEtiapine FUMARATE 25 MG TABLET PO SCH (20:05)
[2023-08-22] MEDS: MELATONIN 3 MG TAB PO SCH (20:05)
[2023-08-22 20:52] LABS: Adenovirus F 40/41 PCR Not Detected (NotDetected); Astrovirus PCR Not Detected (NotDetected); Campylobacter PCR Not Detected (NotDetected); Cryptosporidium PCR Not Detected (NotDetected); Cyclospora cayetanensis PCR Not Detected (NotDetected); Entamoeba histolytica PCR Not Detected (NotDetected); Enteroaggregative E.coli(EAEC) Not Detected (NotDetected); Enteropathogenic E.coli (EPEC) Not Detected (NotDetected); Enterotoxigenic E.coli (ETEC) Not Detected (NotDetected); Giardia lamblia PCR Not Detected (NotDetected); Norovirus GI/GII PCR Not Detected (NotDetected); Plesiomonas shigelloides PCR Not Detected (NotDetected); Rotavirus A PCR Not Detected (NotDetected); Salmonella PCR Not Detected (NotDetected); Sapovirus PCR Not Detected (NotDetected); Shiga-like Toxin E.coli (STEC) Not Detected (NotDetected); Shigella/Enteroinvasive E.coli Not Detected (NotDetected); Vibrio cholerae PCR Not Detected (NotDetected); Vibrio species PCR Not Detected (NotDetected); Yersinia enterocolitica PCR Not Detected (NotDetected)
[2023-08-23 06:35] LABS: Hematocrit (blood only) 27.6 % (37.0-47.0); Mean Corpuscular Hemoglobin 29.2 pg (25.0-34.0); Mean Corpuscular Hgb Conc 32.6 g/dL (32.0-36.0); Mean Corpuscular Volume 89.6 fL (80.0-100.0); Mean Platelet Volume 9.2 fL (9.4-12.4); Platelet Count 177 K/uL (130-400); RDW Coefficient of Variation 13.8 % (11.5-14.5); RDW Standard Deviation 45.2 fL (36.4-46.3); Red Blood Count 3.08 M/uL (4.20-5.40); White Blood Count 4.83 K/ul (4.8-10.8)
[2023-08-23 06:58] LABS: BUN Creatinine Ratio 31.3 (10-20); Calcium 8.4 mg/dl (8.6-10.3); Creatinine Clr Calc Pharmacy 30.9 ml/min; Est GFR (African American) 40.8 ml/min; Est GFR (Non-African American) 35.2 ml/min; Potassium 4.1 mmol/L (3.5-5.1)
[2023-08-23 07:14] LABS: Creatinine Urine Random 52.6 mg/dl
--- NOTE | 2023-08-23 07:35 | Hospitalist Progress Note ---
Date of Service August 23, 2023 Assessment & Plan (1) YAKOV (acute kidney injury): Plan: Patient with elevation of BUN and Cr from baseline. Potassium is acceptable. despite low serum bicarb No anion gap. YAKOV likely multifactorial -improved with hydration , patient endorses decreased oral intake. out pt meds include Lisinopril and Spironolactone, remain on hold crystalloid volume resuscitation complete 08/23/23 -Decreased Gabapentin from 900mg po TID to 100mg po TID for renal function (2) UTI (urinary tract infection): Plan: UA suggestive of infection. Patient has grown out Enterococcus as well as E. coli in prior urine cultures, sensitive to Zosyn. -Follow urine culture for sensitivities, recollection 08/22 (3) Imbalance: Plan: Etiology unclear. YAKOV may be contributing to generalized weakness and imbalance? Possible post-concussive syndrome. Patient reports her balance getting worse following a fall several weeks ago with head trauma and LOC. CT of the head is with small vessel disease, has known CAD -Maintain fall precautions -PT/OT evaluation appreciated (4) History of CAD (coronary artery disease): Plan: Chronic. Patient with STEMI in March 2023 s/p MAUREEN to LCx. normal EF at that time -Continue ASA and Brillinta, Metoprolol, Isosorbide mononitrate Atorvastatin Lisinopril and Spironolactone for now Plan ROMAN -CPAP qHS with 3L supplemental O2 Anxiety -Chronic. Continue Citalopram, Lorazepam and Seroquel HS GERD - chronic -Protonix 40mg po daily while inpatient Ppx - Heparin Code - DNR/DNI Admission and Anticipated Discharge Date Admission Date: August 22, 2023 Subjective pt is with mild confusion still with diarrhea and weakened, urine is contaminated and recollected diarrhea is chronic and not found to be infectious Physical Exam Physical Exam: awake and alert cardiac is regular lungs are clear some low back pain but central Results & Data Results & Data Vital Signs (Past 12 Hours) Vital Signs Temp Pulse Pulse Resp BP Pulse Ox O2 Del Method 08/23/23 05:59 81 08/23/23 03:47 97.5 F L 82 16 104/62 95 Room Air 08/22/23 23:36 83 08/22/23 23:30 Room Air 08/22/23 23:13 98.4 F 79 16 134/72 97 Room Air Laboratory Results review cbc, review chemistry, review stool pcr PG Care Time/CCT Total # of Minutes Spent Total Time Spent with Patient: Total time spent is greater than 50% in coordination of care (as documented) at patient's floor/unit and/or counseling patient: Coding Level of Care Code 00313 SUB INP/OBS CARE 2/35MIN Diagnoses YAKOV (acute kidney injury) N17.9 UTI (urinary tract infection) N39.0 Imbalance R26.89 History of CAD (coronary artery disease) Z86.79
[2023-08-23] MEDS: PIPERACILLIN/TAZOBACTAM 4.5 GM in DEXTROSE 5% MINI-B 100 ML IV SCH (11:01)
[2023-08-23] MEDS: ACETAMINOPHEN 325 MG TAB PO PRN (19:22)
[2023-08-23] MEDS: QUEtiapine FUMARATE 25 MG TABLET PO SCH (19:23)
[2023-08-23] MEDS: OLANZapine 10 MG/2.1 ML SDV IM STA (23:59)
[2023-08-24 15:01] LABS: Hematocrit (blood only) 27.6 % (37.0-47.0); Hemoglobin 9.2 g/dl (12.0-16.0); Mean Corpuscular Hemoglobin 29.7 pg (25.0-34.0); Mean Corpuscular Hgb Conc 33.3 g/dL (32.0-36.0); Mean Platelet Volume 9.6 fL (9.4-12.4); Platelet Count 210 K/uL (130-400); RDW Coefficient of Variation 14.2 % (11.5-14.5); RDW Standard Deviation 45.8 fL (36.4-46.3); White Blood Count 5.29 K/ul (4.8-10.8)
[2023-08-24 15:22] LABS: BUN Creatinine Ratio 15.8 (10-20); Calcium 8.7 mg/dl (8.6-10.3); Est GFR (African American) 42.6 ml/min; Est GFR (Non-African American) 36.7 ml/min; Potassium 3.8 mmol/L (3.5-5.1)
--- NOTE | 2023-08-24 17:56 | Hospitalist Progress Note ---
Date of Service August 24, 2023 Assessment & Plan (1) YAKOV (acute kidney injury): Plan: Patient with elevation of BUN and Cr from baseline. Potassium is acceptable. despite low serum bicarb No anion gap. YAKOV likely multifactorial -improved with hydration , patient endorses decreased oral intake. out pt meds include Lisinopril and Spironolactone, remain on hold crystalloid volume resuscitation complete 08/23/23 -Decreased Gabapentin from 900mg po TID to 100mg po TID for renal function creatinine is improving. Patient with delirium. Likley multifactorial. Could be due to YAKOV/ dehydration and possible UTI. will continue to reorient the patient. (2) UTI (urinary tract infection): Plan: UA suggestive of infection. Patient has grown out Enterococcus as well as E. coli in prior urine cultures, sensitive to Zosyn. -Follow urine culture for sensitivities, recollection 08/22 (3) Imbalance: Plan: Etiology unclear. YAKOV may be contributing to generalized weakness and imbalance? Possible post-concussive syndrome. Patient reports her balance getting worse following a fall several weeks ago with head trauma and LOC. CT of the head is with small vessel disease, has known CAD -Maintain fall precautions -PT/OT evaluation appreciated (4) History of CAD (coronary artery disease): Plan: Chronic. Patient with STEMI in March 2023 s/p MAUREEN to LCx. normal EF at that time -Continue ASA and Brillinta, Metoprolol, Isosorbide mononitrate Atorvastatin Lisinopril and Spironolactone for now Plan ROMAN -CPAP qHS with 3L supplemental O2 Anxiety -Chronic. Continue Citalopram, Lorazepam and Seroquel HS GERD - chronic -Protonix 40mg po daily while inpatient Ppx - Heparin Code - DNR/DNI Admission and Anticipated Discharge Date Admission Date: August 22, 2023 Subjective 77 yo female reports seeing a bunny on the roof. Her mother is at bedside. She is updated. Review of Systems Review of Systems: Unobtainable due to cognitive status Physical Exam Physical Exam: awake and alert cardiac is regular lungs are clear some low back pain but central Results & Data Results & Data Vital Signs (Past 12 Hours) Vital Signs Temp Pulse Pulse Resp BP BP Pulse Ox 08/24/23 15:49 36.8 C 81 18 137/72 99 08/24/23 14:57 81 08/24/23 11:35 36.7 C 86 18 144/75 H 95 08/24/23 08:15 85 08/24/23 07:47 36.3 C L 88 18 153/86 H 98 O2 Del Method 08/24/23 15:49 Room Air 08/24/23 14:57 08/24/23 11:35 Room Air 08/24/23 08:15 08/24/23 07:47 Room Air PG Care Time/CCT Total # of Minutes Spent Total Time Spent with Patient: Total time spent is greater than 50% in coordination of care (as documented) at patient's floor/unit and/or counseling patient: Coding Level of Care Code 29696 SUB INP/OBS CARE 235MIN Diagnoses YAKOV (acute kidney injury) N17.9 UTI (urinary tract infection) N39.0 Imbalance R26.89 History of CAD (coronary artery disease) Z86.79
[2023-08-25 06:20] LABS: Hematocrit (blood only) 25.9 % (37.0-47.0); Hemoglobin 8.5 g/dl (12.0-16.0); Mean Corpuscular Hemoglobin 29.3 pg (25.0-34.0); Mean Corpuscular Hgb Conc 32.8 g/dL (32.0-36.0); Mean Corpuscular Volume 89.3 fL (80.0-100.0); Mean Platelet Volume 9.8 fL (9.4-12.4); Platelet Count 195 K/uL (130-400); RDW Coefficient of Variation 14.1 % (11.5-14.5); RDW Standard Deviation 45.9 fL (36.4-46.3)
[2023-08-25 06:33] LABS: BUN Creatinine Ratio 15.2 (10-20); Calcium 8.5 mg/dl (8.6-10.3); Creatinine Clr Calc Pharmacy 32.2 ml/min; Est GFR (African American) 42.9 ml/min; Potassium 3.8 mmol/L (3.5-5.1)
--- NOTE | 2023-08-25 18:10 | Hospitalist Progress Note ---
Date of Service August 25, 2023 Assessment & Plan (1) YAKOV (acute kidney injury): Plan: Patient with elevation of BUN and Cr from baseline. Potassium is acceptable. despite low serum bicarb No anion gap. YAKOV likely multifactorial -improved with hydration , patient endorses decreased oral intake. out pt meds include Lisinopril and Spironolactone, remain on hold crystalloid volume resuscitation complete 08/23/23 -Decreased Gabapentin from 900mg po TID to 100mg po TID for renal function creatinine is improving. Patient with delirium. Likley multifactorial. Could be due to YAKOV/ dehydration and possible UTI. will continue to reorient the patient. Patient appears less confused on 08/24. will continue to monitor. (2) UTI (urinary tract infection): Plan: UA suggestive of infection. Patient has grown out Enterococcus as well as E. coli in prior urine cultures, sensitive to Zosyn. -Follow urine culture for sensitivities, recollection 08/22 (3) Imbalance: Plan: Etiology unclear. YAKOV may be contributing to generalized weakness and imbalance? Possible post-concussive syndrome. Patient reports her balance getting worse following a fall several weeks ago with head trauma and LOC. CT of the head is with small vessel disease, has known CAD -Maintain fall precautions -PT/OT evaluation appreciated (4) History of CAD (coronary artery disease): Plan: Chronic. Patient with STEMI in March 2023 s/p MAUREEN to LCx. normal EF at that time -Continue ASA and Brillinta, Metoprolol, Isosorbide mononitrate Atorvastatin Lisinopril and Spironolactone for now Plan ROMAN -CPAP qHS with 3L supplemental O2 Anxiety -Chronic. Continue Citalopram, Lorazepam and Seroquel HS GERD - chronic -Protonix 40mg po daily while inpatient Ppx - Heparin Code - DNR/DNI Admission and Anticipated Discharge Date Admission Date: August 22, 2023 Subjective 77 yo female reports no new symptoms. Patient states she sees animals but acknowledges she has poor vision. Review of Systems Review of Systems: All systems reviewed & are unremarkable except as noted in HPI & below Physical Exam Physical Exam: awake and alert cardiac is regular lungs are clear some low back pain but central Results & Data Results & Data Vital Signs (Past 12 Hours) Vital Signs Temp Pulse Pulse Resp BP Pulse Ox O2 Del Method 08/25/23 15:48 36.3 C L 77 18 147/57 H 97 Room Air 08/25/23 15:06 61 08/25/23 11:52 36.7 C 74 18 124/73 99 Room Air 08/25/23 07:40 36.9 C 77 18 147/68 H 96 Room Air PG Care Time/CCT Total # of Minutes Spent Total Time Spent with Patient: Total time spent is greater than 50% in coordination of care (as documented) at patient's floor/unit and/or counseling patient: Coding Level of Care Code 41931 SUB INP/OBS CARE 2/35MIN Diagnoses YAKOV (acute kidney injury) N17.9 UTI (urinary tract infection) N39.0 Imbalance R26.89 History of CAD (coronary artery disease) Z86.79
[2023-08-26 06:42] LABS: Hematocrit (blood only) 25.4 % (37.0-47.0); Hemoglobin 8.5 g/dl (12.0-16.0); Mean Corpuscular Hemoglobin 29.5 pg (25.0-34.0); Mean Corpuscular Hgb Conc 33.5 g/dL (32.0-36.0); Mean Corpuscular Volume 88.2 fL (80.0-100.0); Mean Platelet Volume 9.5 fL (9.4-12.4); Platelet Count 182 K/uL (130-400); RDW Coefficient of Variation 14.1 % (11.5-14.5); Red Blood Count 2.88 M/uL (4.20-5.40); White Blood Count 4.91 K/ul (4.8-10.8)
[2023-08-26 06:54] LABS: Potassium 3.5 mmol/L (3.5-5.1)
[2023-08-26 06:55] LABS: BUN Creatinine Ratio 15.5 (10-20); Calcium 8.4 mg/dl (8.6-10.3); Creatinine Clr Calc Pharmacy 38.4 ml/min; Est GFR (Non-African American) 45.7 ml/min
[2023-08-26] MEDS: ADVANCED PROBIOTIC 625 MG CAPSULE PO SCH (14:36)
[2023-08-26] MEDS: LOPERAMIDE HCL 2 MG CAP PO PRN (16:45)
--- NOTE | 2023-08-26 18:20 | Hospitalist Progress Note ---
Date of Service August 26, 2023 Assessment & Plan (1) YAKOV (acute kidney injury): Plan: Patient with elevation of BUN and Cr from baseline. Potassium is acceptable. despite low serum bicarb No anion gap. YAKOV likely multifactorial -improved with hydration , patient endorses decreased oral intake. out pt meds include Lisinopril and Spironolactone, remain on hold crystalloid volume resuscitation complete 08/23/23 -Decreased Gabapentin from 900mg po TID to 100mg po TID for renal function creatinine is improving. Patient with delirium. Likley multifactorial. Could be due to YAKOV/ dehydration and possible UTI. will continue to reorient the patient. Patient appears less confused on 08/25. If continues to improve will discharge on 08/26 (2) UTI (urinary tract infection): Plan: UA suggestive of infection. Patient has grown out Enterococcus as well as E. coli in prior urine cultures, sensitive to Zosyn. -Follow urine culture for sensitivities, recollection 08/22 Given diarrhea, will stop antibiotics. Over 5 days of IV antibiotics given. (3) Imbalance: Plan: Etiology unclear. YAKOV may be contributing to generalized weakness and imbalance? Possible post-concussive syndrome. Patient reports her balance getting worse following a fall several weeks ago with head trauma and LOC. CT of the head is with small vessel disease, has known CAD -Maintain fall precautions -PT/OT evaluation appreciated (4) History of CAD (coronary artery disease): Plan: Chronic. Patient with STEMI in March 2023 s/p MAUREEN to LCx. normal EF at that time -Continue ASA and Brillinta, Metoprolol, Isosorbide mononitrate Atorvastatin Lisinopril and Spironolactone for now Plan ROMAN -CPAP qHS with 3L supplemental O2 Anxiety -Chronic. Continue Citalopram, Lorazepam and Seroquel HS GERD - chronic -Protonix 40mg po daily while inpatient Ppx - Heparin Code - DNR/DNI Admission and Anticipated Discharge Date Admission Date: August 22, 2023 Subjective Patient appears less confused today. Review of Systems Review of Systems: All systems reviewed & are unremarkable except as noted in HPI & below Physical Exam Physical Exam: awake and alert cardiac is regular lungs are clear some low back pain but central Results & Data Results & Data Vital Signs (Past 12 Hours) Vital Signs Temp Pulse Pulse Resp BP Pulse Ox O2 Del Method 08/26/23 15:50 37.1 C 76 16 118/70 98 Room Air 08/26/23 14:04 76 08/26/23 12:19 Room Air 08/26/23 10:51 36.9 C 85 16 106/62 97 Room Air 08/26/23 07:19 36.4 C L 73 16 123/51 L 96 CPAP 08/26/23 07:00 70 PG Care Time/CCT Total # of Minutes Spent Total Time Spent with Patient: Total time spent is greater than 50% in coordination of care (as documented) at patient's floor/unit and/or counseling patient: Coding Level of Care Code 82162 SUB INP/OBS CARE 2/35MIN Diagnoses YAKOV (acute kidney injury) N17.9 UTI (urinary tract infection) N39.0 Imbalance R26.89 History of CAD (coronary artery disease) Z86.79
[2023-08-27 08:09] VITALS: RESP 20
[2023-08-27] MEDS: D5W AND 1/2NSS 1,000 ML IV SCH (11:00)
[2023-08-27] MEDS: SODIUM BICARBONATE 650 MG TAB PO ONE ×2 (11:04→11:28)
[2023-08-27 11:31] VITALS: TEMP 98.1; O2SAT 98
[2023-08-27 11:34] VITALS: BP 118/70; PULSE 86
[2023-08-27 11:43] LABS: Hemoglobin 8.5 g/dl (12.0-16.0); Mean Corpuscular Hemoglobin 29.2 pg (25.0-34.0); Mean Corpuscular Hgb Conc 32.7 g/dL (32.0-36.0); Mean Corpuscular Volume 89.3 fL (80.0-100.0); Mean Platelet Volume 9.6 fL (9.4-12.4); Platelet Count 214 K/uL (130-400); RDW Coefficient of Variation 14.6 % (11.5-14.5); RDW Standard Deviation 46.6 fL (36.4-46.3); Red Blood Count 2.91 M/uL (4.20-5.40); White Blood Count 4.33 K/ul (4.8-10.8)
[2023-08-27 11:59] LABS: BUN Creatinine Ratio 16.8 (10-20); Calcium 8.7 mg/dl (8.6-10.3); Creatinine Clr Calc Pharmacy 37.7 ml/min; Est GFR (African American) 51.4 ml/min; Est GFR (Non-African American) 44.3 ml/min; Magnesium 1.7 mg/dl (1.7-2.4); Phosphorus 3.3 mg/dl (2.5-4.9); Potassium 3.8 mmol/L (3.5-5.1)
[2023-08-27] MEDS: SODIUM CHLORIDE 0.45 % 1,000 ML IV SCH (13:40)
--- NOTE | 2023-08-27 14:10 | Discharge Summary ---
Date of Service August 27, 2023 Admission HPI Per Admitting Provider Stefany Arroyo is a 77yo female with history of CAD s/p STEMI in March 2023 with MAUREEN to LCx, HTN, DM and ROMAN presenting from [facility] with several weeks of generalized weakness, imbalance and episodes of confusion. Patient reports frequent falls. She had a trip and fall a couple of weeks ago in which she hit her head on a concrete step. She reports she lost consciousness but is uncertain for how long. She thinks that perhaps her imbalance has been worse since then. She has not been eating or drinking as well over the last several days. No chest pain, cough, SOB, abdominal pain, nausea, vomiting, diarrhea or constipation. No additional complaints During encounter, patient seems to have waxing and waning mental status. She is able to answer all orientation questions and provide some history of her reason for coming to the ER. Then she asked me if we can transfer her to [facility]. When I told her that she's already at [facility] she felt very confused. Principal Diagnosis delirium. Discharge Exam awake and alert cardiac is regular lungs are clear some low back pain but central Discharge Data Allergies Allergy/AdvReac Type Severity Reaction Status Date / Time latex Allergy Mild ON [facility] Verified 08/04/23 10:44 LIST-per patient- thinks rash niacin Allergy Unknown ON [facility] Verified 08/04/23 10:44 [From [facility] Extended-Release] simvastatin Allergy Unknown ON Verified 08/04/23 10:44 [facility] LIST- unsure Consultations 08/22/23 05:16 ED Decision to Admit Stat Ordered Studies 08/22/23 04:00 CT head/brain wo con Stat Hospital Course (1) YAKOV (acute kidney injury): Appears that patient was admitted with delirium Patient came in with multiple risk of delirium: 1) Acute kidney injury: resulting in an elevated creatinine of 2.28 Patient improved with volume resuscitation. 2) There was a question of a possible UTI and patient was treated with antibiotics for at least 5 days. 3) side effect of the gabapentin due to high dose and YAKOV. The YAKOV could have been from diarrhea, patient however is on chornic imodium and also takes miralx. Due to antibiotic usage, patient was placed on probiotics. WIll recommend close followup with PCP and rechecking BMP in 1 week. -Decreased Gabapentin from 900mg po TID to 100mg po TID for renal function. Will leave it at this dose for the meantime. Diarrhea has improved in frequency, but it is still loose. At this time, patient does not have any signs of decompensation. And I anticipate patient will continue to improve. WIll discharge to [facility] with home PT as this will likely help with her delirium. (2) UTI (urinary tract infection): UA suggestive of infection. Patient has grown out Enterococcus as well as E. coli in prior urine cultures, sensitive to Zosyn. -Follow urine culture for sensitivities, recollection 08/22 Given diarrhea, will stop antibiotics. Over 5 days of IV antibiotics given. (3) Imbalance: Etiology unclear. YAKOV may be contributing to generalized weakness and imbalance? Possible post-concussive syndrome. Patient reports her balance getting worse following a fall several weeks ago with head trauma and LOC. CT of the head is with small vessel disease, has known CAD -Maintain fall precautions -PT/OT evaluation appreciated. will continue home health. (4) History of CAD (coronary artery disease): Chronic. Patient with STEMI in March 2023 s/p MAUREEN to LCx. normal EF at that time -Continue ASA and Brillinta, Metoprolol, Isosorbide mononitrate Atorvastatin Lisinopril and Spironolactone for now Plan ROMAN -CPAP qHS with 3L supplemental O2 Anxiety -Chronic. Continue Citalopram, Lorazepam and Seroquel HS GERD - chronic -Protonix 40mg po daily while inpatient Ppx - Heparin Code - DNR/DNI Total Time Total Time Spent Total Time Spent (In Minutes): 32 Discharge Plan Discharge Items Patient Disposition: Home - Self-Care Reason For Visit: YAKOV Discharge Diagnosis: acute kidney injury Activity: Resume your previous activity Non-emergency contact: Primary Care Provider Call non-emergency contact if: you have any medication questions Follow-up/Referrals: Levon Adam, DO [Primary Care Provider] - Diet: Carb Consistent or DM2 Addtl Attending Provider Instructions: You were admitted for confusion. This was likely secondary to dehydration diarrhea, and possibly UTI. In the short term, we will have you hold spironolactone and lisinopril. Your acute kidney injury did improve. You were also treated for a UTI. Over time your confusion improved. In regards to your diabetes, you required a lower dose of insulin. Will cut back insulin glargine to 5 units. recommend rechecking BMP in 1 week. Forward result to PCP Pending Studies at Discharge: No Stand-Alone Forms: My [facility] S[employer]ability Roundtable, Smoking Cessation Medications and DC Order Prescriptions: New Advanced Probiotic 625 mg (10 billion cell) Capsule 1 cap PO DAILY Qty: 7 0RF pantoprazole 40 mg Tablet,Delayed Release (Dr/Ec) 40 mg PO DAILY Qty: 30 0RF Continued Calmoseptine 0.44-20.6 % ointment in packet 1 applic topical BID PRN (Reason: skin irritation) Qty: 504 2RF methenamine hippurate 1 gram tablet 1 g PO Q12H Qty: 180 1RF Rx Instructions: 0730 & 2100 timolol 0.5 % drops 1 drp OPB QAM Qty: 5 2RF insulin lispro [Humalog KwikPen Insulin] 100 unit/mL insulin pen 3 unit SUBCUT TID MDD 20 units Qty: 15 2RF Rx Instructions: TAKES 0800, 1200, & 1700--3 UNIT BASE DOSE WITH PREMEAL BSG IS GREATER THAN 150, FOR EVERY 50 ABOVE BSG OF 200 ADD ADDITIONAL 3 UNITS. atorvastatin 40 mg tablet 40 mg PO DAILY Qty: 30 11RF Trulicity 4.5 mg/0.5 mL pen injector 4.5 mg subcut ONCE Qty: 2 5RF Rx Instructions: THURSDAY MORNINGS metoprolol tartrate 50 mg tablet 50 mg PO BID Qty: 60 11RF Rx Instructions: 0730 & 2100 Brilinta 90 mg tablet 90 mg PO BID Qty: 60 11RF Rx Instructions: ON EXT MED HX, [facility] nystatin 100,000 unit/gram cream 1 applic topical BID PRN (Reason: RASH IN ABD FOLDS NEEDED) (DME) Novofine Autocover 30 gauge x 1/3" needle See Rx Instructions .ROUTE .MEDSUPPLY Qty: 100 Rx Instructions: As directed magnesium citrate Solution 150 ml PO DAILY PRN (Reason: No BM x 2 days) Qty: 296 2RF melatonin 10 mg capsule 10 mg PO HS Qty: 30 11RF diclofenac sodium 1 % gel 4 g topical BID Rx Instructions: apply 4 grams to L foot BID for pain isosorbide mononitrate 60 mg tablet extended release 24 hr 60 mg PO DAILY Qty: 30 11RF tolterodine 2 mg Tablet 2 mg PO BID Rx Instructions: 729 & 2099 glucose 4 gram Tablet,Chewable 1 tab PO UD PRN (Reason: HYPOGLYCEMIA) acetaminophen [Tylenol] 325 mg Tablet 650 mg PO Q6H MDD MAX 3 GRAMS APAP/24 HOURS. PRN (Reason: Fever Or Pain) amoxicillin 500 mg Capsule 2,000 mg PO DIRECTED PRN (Reason: PRIOR TO DENTAL PROCEDURES) hydrocortisone 1 % Cream 1 applic TOPICAL BID PRN (Reason: Rash) PreserVision AREDS-2 250-90-40-1 mg Capsule 1 tab PO BID Rx Instructions: 729 & 2099 insulin glargine [Lantus Solostar U-100 Insulin] 100 unit/mL (3 mL) insulin pen 8 unit SUBCUT QAM citalopram 20 mg tablet 20 mg PO QAM Rx Instructions: ON EXT MED LIST, NOT ON [facility] LIST fluorometholone 0.1 % drops,suspension 1 drp ophthalmic (eye) DIRECTED Rx Instructions: ON EXT MED HX, NOT ON [facility] aspirin 81 mg Tablet,Delayed Release (Dr/Ec) 81 mg PO QAM Qty: 30 0RF lorazepam 0.5 mg tablet 0.5 mg PO HS Qty: 10 0RF gabapentin 100 mg capsule 100 mg PO TID Qty: 90 0RF Rx Instructions: Take 1 capsule by mouth three times daily along with 800mg Changed quetiapine 25 mg tablet 25 mg PO DAILY Qty: 30 0RF loperamide 2 mg capsule 2 mg PO QID PRN (Reason: diarrhea) Qty: 30 1RF Rx Instructions: Take PO after BM, do not take more than 4 capsules in 24 hours. polyethylene glycol 3350 17 gram Powder In Packet 17 g PO QAM PRN (Reason: constipation) Qty: 0 0RF Metamucil 3.4 gram/5.4 gram Powder 1 tsp PO DAILY PRN (Reason: constipation) Qty: 0 0RF Rx Instructions: mix into at least 4 oz water or juice before administering Held ketoconazole 2 % cream 1 applic topical BID Qty: 30 1RF Hold Instructions: Resume on 09/10/23. Rx Instructions: 729 & 2099 silver sulfadiazine [Silvadene] 1 % cream 1 applic topical BID Qty: 50 0RF Hold Instructions: Resume on 09/10/23. Rx Instructions: apply a 1.5 mm thickness spironolactone 25 mg Tablet 25 mg PO BID Qty: 60 0RF Hold Instructions: Resume on 09/10/23. until followup with PCP Rx Instructions: 0730 & 2100 lisinopril 40 mg tablet 40 mg PO QAM Hold Instructions: Resume on 09/10/23. until followup with PCP Discontinued omeprazole 20 mg Capsule,Delayed Release(Dr/Ec) 20 mg PO QAM Discharge Orders: Discharge Order (Routine); Ordered 08/27/23 Ordered By: Marcos Bergman Admission Data Admit Date/Time: 08/22/23 05:43 Attending Provider: Marcos Bergman Admit Provider: Margi Lopez Primary Care Provider: Levon Adam Other Providers: Margi Lopez Other Interventions: Discharge Summary Assessment (RN) Last Done: 08/27/23 11:33 Coding Level of Care Code 76438 INP/OBS DISCH >30 MIN Diagnoses YAKOV (acute kidney injury) N17.9 UTI (urinary tract infection) N39.0 Imbalance R26.89 History of CAD (coronary artery disease) Z86.79
== END 2023-08-27 14:26 | disposition home or self-care (01) | DRG 683 ==
LOC: ED 03:14 → EDINP 05:43 → SUATTDRO 05:43 → 2N 06:06

== ENCOUNTER 2023-09-24 09:48 | Inpatient (IN) ==
--- NOTE | 2023-09-24 10:09 | Emergency Department Note ---
Impression & Plan YAKOV (acute kidney injury), Anemia, Diarrhea, Acute dehydration, Acute UTI ED Provider Note NAME: SHENG SINGH AGE: 77 SEX: F : 1945 ARRIVES VIA: Ambulance INFORMANT: [Patient][nursing] ED PROVIDER(S): [Jose Jennings MD] CHIEF COMPLAINT: Diarrhea, abdominal pain HISTORY OF PRESENT ILLNESS: The patient is a 77-year-old female whose had diarrhea and some intermittent abdominal pain for about a month. She tried Imodium with minimal relief. Patient was treated for UTI around 3 weeks ago. Today, the patient's diarrhea had a different smell, the nursing staff felt it smelled like C. difficile. The patient does have a history of previous C. difficile. She was sent to our hospital for evaluation. The patient has not had fever. There has been no cough or congestion or shortness of breath. She states that her abdominal pain has been intermittent and very minimal. More so, her complaint is the persistent diarrhea. PMHx/PSHx/Social Hx: See Below PHYSICAL EXAM: GENERAL: Patient is in no acute distress. HEENT: No acute trauma, normocephalic atraumatic, mucous membranes moist, no nasal congestion. NECK: No stridor, no adenopathy, no meningismus, trachea is midline. LUNGS: Clear to auscultation bilaterally, no wheeze, no rhonchi, breath sounds equal. Breath sounds are diminished bilaterally. HEART: Without murmurs gallops or rubs, regular rate and rhythm. Distant heart tones. ABDOMEN: Soft, nontender, no peritonitis. EXTREMITIES: No cyanosis, full range of motion of all the joints without pain or difficulty. NEUROLOGIC: Oriented x 3, no acute motor or sensory deficits, no focal weakness. SKIN: No jaundice, no diaphoresis. DIFFERENTIAL DIAGNOSIS: C. difficile colitis, viral or bacterial intestinal infection, diverticulitis, dehydration, electrolyte imbalance, among others. EMERGENCY DEPARTMENT PROCEDURES: MEDICAL DECISION MAKING: There is no leukocytosis. The patient is anemic however, her hemoglobin is improved compared to recent testing. There is a normal platelet count. Renal panel testing does show acute kidney injury, likely from dehydration. No concerning liver enzyme elevation. No evidence for pancreatitis. Urinalysis is suggestive of infection. Stool C. difficile was negative. Stool bio fire was negative. Abdominal and pelvis CT does suggest a diffuse colitis. No diverticulitis or acute surgical process. ECG showed a sinus rhythm, no ischemia or dysrhythmia. On exam, the patient was not febrile or toxic. There was no peritonitis. The patient received IV saline, 1 L. The patient presents with ongoing diarrhea. There was concern for C. difficile, C. difficile was not found today by our testing. Patient is dehydrated with some acute kidney injury. I do think she will require a hospital stay for further hydration and care. I spoke with the patient and case management, the on-call hospitalist was consulted. At this point, the cause for the persistent diarrhea is unclear. Prior/Outside records/notes reviewed: Today's EMS notes describing her presentation and transport to this hospital. ECG per my interpretation: Indication was weakness. The ECG shows a normal sinus rhythm with a right bundle branch block. The rate is 81. There is no acute ST elevation, no PVCs. The QTc is 511. Continuous Cardiac Monitoring per my interpretation: An order was placed for continuous cardiac monitoring. The monitor shows a rate of 85 with normal sinus rhythm. Imaging/x-ray results per my interpretation: Chronic Medical/Social conditions affecting care: Advanced age. Care/Management discussed with: Case management, the on-call hospitalist. Level of care consideration(s): After review of the information above and other included data: --I believe the patient requires escalation of care to admission DISPOSITION: Admission Past Med/Surg History Problem List (Updated 09/24/23 @ 15:58 by Jose Jennings MD) Acute UTI (Acute) Acute dehydration (Acute) Diarrhea (Acute) Anemia (Acute) YKAOV (acute kidney injury) (Acute) Hypermagnesemia Gait instability (Acute) Imbalance Urinary incontinence History of CAD (coronary artery disease) (Acute) Anemia (Acute) Chest pain (Acute) Chest pain Diabetic retinopathy associated with type 2 diabetes mellitus Left nephrolithiasis Overactive bladder GERD (gastroesophageal reflux disease) hx Sleep apnea cpap nightly with 3lpm of oygen Depression Per records Glaucoma CAD (coronary artery disease) Occlusion of distal portion of left circumflex coronary artery Proteinuria Chronic kidney disease, stage 3a Vitamin D deficiency Diabetic nephropathy associated with type 2 diabetes mellitus Enteritis, inflammatory disorder of small intestine (Chronic Unknown) Fatigue (Acute) Generalized weakness (Acute) Knee pain (Acute) Radiculopathy, lumbar region Spinal stenosis of lumbar region Hypertension DVT prophylaxis Toe ulcer Pressure ulcer, stage III (Acute) Diabetes mellitus type 2 in obese Dyslipidemia Statin myopathy Peripheral neuropathy Hyponatremia Medical History UTI (urinary tract infection) YAKOV (acute kidney injury) STEMI (ST elevation myocardial infarction) History of recurrent UTI (urinary tract infection) Insomnia Per records Neuropathy per patient- hands and feet Hypertension Per records History of macular degeneration Chronic back pain Diabetes mellitus, type 2 IDDM Neurogenic claudication due to lumbar spinal stenosis History of nephrolithiasis Nasal bone fracture Cholecystitis, acute Surgical History History of appendectomy History of bilateral tubal ligation History of cataract surgery History of cholecystectomy History of colonoscopy History of cornea transplant Hx of total knee arthroplasty S/P epidural steroid injection Status post spinal surgery Family History Mother Breast cancer Aunt Colorectal cancer Diabetes Father Myocardial infarction Other No family history of adverse response to anesthesia No pertinent family history Denies family history of Ovarian cancer Prostate cancer Social History Smoking Status: Unknown if ever smoked Tobacco Type: Cigarettes Age Quit Using Tobacco: 64; Cigarettes Per Day: 2 packs/day; Second Hand Exposure: No; Do You Dip or Chew Tobacco: No; Hx Alcohol Use: No Hx Substance Use: No Preferred Language: Welsh Communication Ability: Effective Visual Impairment: No Limitations Hearing Ability: Normal Allergist/Immunologist Physician Required: No Beliefs That Will Affect Care: None marital status: Current Living Situation: Care Home Current Living Situation Comment: [facility] current occupational status: retired current occupation: Retired How many Children do You have: 2 Feels Safe at Home: Yes Childhood Exposure to Second-Hand Smoke: No Diet: regular caffeine: No during the past year weight has: remained stable Dental Care, Regularly: Yes Physical Activity Frequency: Does not Exercise Seatbelt Use: sometimes Sunscreen Use: Yes Assistive Devices: Walker Allergies Allergies Allergy/AdvReac Type Severity Reaction Status Date / Time latex Allergy Mild ON [facility] Verified 09/24/23 14:24 LIST-per patient- thinks rash niacin Allergy Unknown ON [facility] Verified 09/24/23 14:24 [From [facility] MED LIST Extended-Release] simvastatin Allergy Unknown ON Verified 09/24/23 14:24 [facility] LIST- unsure Home Meds Home Medications Medication Instructions Recorded Confirmed glucose 4 gram chewable tablet 1 tab PO DAILY PRN HYPOGLYCEMIA 11/26/17 09/24/23 tolterodine 2 mg tablet 2 mg PO BID 11/26/17 09/24/23 acetaminophen 325 mg tablet 650 mg PO Q6H PRN Fever Or Pain 06/12/18 09/24/23 (Tylenol) nystatin 100,000 unit/gram topical 1 applic topical BID PRN RASH IN 11/24/22 09/24/23 cream ABD FOLDS NEEDED pen needle, diabetic, safety 30 #100 ea 01/12/23 09/08/23 gauge x 1/3" (Novofine Autocover) amoxicillin 500 mg capsule 2,000 mg PO DIRECTED PRN PRIOR 05/09/23 09/24/23 TO DENTAL PROCEDURES citalopram 20 mg tablet 20 mg PO QAM 05/09/23 09/24/23 fluorometholone 0.1 % eye 1 drp OPB DAILY 05/09/23 09/24/23 drops,suspension hydrocortisone 1 % topical cream 1 applic topical BID PRN Rash 05/09/23 09/24/23 lisinopril 40 mg tablet 40 mg PO QAM 05/09/23 09/24/23 vit C 250 mg-vit E 90 mg-zinc 40 1 tab PO BID 05/09/23 09/24/23 mg-copper 1 nd-[id number] capsule (PreserVision AREDS-2) flash glucose sensor (FreeStyle 09/08/23 09/08/23 [place] 2 Sensor kit) Qc Natural Veggie 95% Powder See Rx Instructions .Route .COMPLEX 09/24/23 09/24/23 atorvastatin 40 mg tablet 40 mg PO HS 09/24/23 09/24/23 dulaglutide 4.5 mg/0.5 mL 4.5 mg subcut WK 09/24/23 09/24/23 subcutaneous pen injector ([facility]) isosorbide mononitrate 60 mg 60 mg PO QAM 09/24/23 09/24/23 tablet,extended release 24 hr nystatin 100,000 unit/gram topical 1 applic topical BID PRN Rash 09/24/23 09/24/23 powder pantoprazole 40 mg tablet,delayed 40 mg PO QAM 09/24/23 09/24/23 release quetiapine 25 mg tablet 25 mg PO QAM 09/24/23 09/24/23 Previous Rx's Medication Instructions Recorded methenamine hippurate 1 gram tablet 1 g PO Q12H #180 tabs 02/12/23 spironolactone 25 mg tablet 25 mg PO BID #60 tabs 03/20/23 magnesium citrate 150 ml PO DAILY PRN No BM x 2 days 03/26/23 #296 mL metoprolol tartrate 50 mg tablet 50 mg PO BID #60 tabs 04/08/23 ticagrelor 90 mg tablet (Brilinta) 90 mg PO BID #60 tabs 04/08/23 aspirin 81 mg tablet,delayed 81 mg PO QAM #30 tabs 05/10/23 release melatonin 10 mg capsule 10 mg PO HS sleep #30 caps 08/04/23 insulin lispro 100 unit/mL 3 unit (0.03 mL) subcut TID #15 mL 08/13/23 subcutaneous pen (Humalog KwikPen (U-100) Insulin) loperamide 2 mg capsule 2 mg PO QID PRN diarrhea #30 caps 08/27/23 polyethylene glycol 3350 17 gram 17 g PO QAM PRN constipation #0 ea 08/27/23 oral powder packet psyllium husk 3.4 gram/5.4 gram 1 tsp PO DAILY PRN constipation #0 08/27/23 oral powder (Metamucil) grams gabapentin 100 mg capsule 100 mg PO TID #45 caps 08/28/23 insulin glargine 100 unit/mL (3 5 unit (0.05 mL) subcut QAM #3 mL 08/28/23 mL) subcutaneous pen (Lantus Solostar U-100 Insulin) timolol 0.5 % eye drops 1 drp OPB QAM #5 mL 08/31/23 lorazepam 0.5 mg tablet 0.5 mg PO HS anxiety #10 tabs 09/14/23 Results & Data (ED) Vital Signs Vital Signs - 24 hr 09/24/23 09:39 09/24/23 09:39 09/24/23 09:56 Temperature 36.7 C Temperature Source Oral Pulse Rate 86 86 Pulse Rate from SpO2 Sensor Pulse Rhythm Regular Regular Pulse Strength Normal Respiratory Rate 18 18 Respiratory Effort / Characteristics Non-Labored Respiratory Depth Normal Respiratory Pattern Regular Blood Pressure 100/46 L 114/53 L Blood Pressure Mean 64 74 Pulse Oximetry 96 96 Oxygen Delivery Method Room Air Room Air Sepsis Recent Fever Within 48 Hours No Sepsis New/Unexplained Change in Mental Status No Sepsis Action Taken by Nursing No Action Required 09/24/23 09:56 09/24/23 10:09 09/24/23 10:13 Temperature Temperature Source Pulse Rate 85 85 Pulse Rate from SpO2 Sensor 85 Pulse Rhythm Pulse Strength Respiratory Rate 12 Respiratory Effort / Characteristics Respiratory Depth Respiratory Pattern Blood Pressure 114/53 L Blood Pressure Mean 74 Pulse Oximetry 93 Oxygen Delivery Method Sepsis Recent Fever Within 48 Hours Sepsis New/Unexplained Change in Mental Status Sepsis Action Taken by Nursing 09/24/23 11:06 Temperature Temperature Source Pulse Rate 80 Pulse Rate from SpO2 Sensor 80 Pulse Rhythm Pulse Strength Respiratory Rate 16 Respiratory Effort / Characteristics Respiratory Depth Respiratory Pattern Blood Pressure Blood Pressure Mean Pulse Oximetry 94 Oxygen Delivery Method Sepsis Recent Fever Within 48 Hours Sepsis New/Unexplained Change in Mental Status Sepsis Action Taken by Care Home Medications Current Medication List: was personally reviewed by me Laboratory Data Attestation: I reviewed the patient's lab results. 09/24/23 10:11 09/24/23 10:11 Lab Results 09/24/23 Range/Units 10:11 WBC 6.57 (4.8-10.8) K/ul RBC 3.73 L (4.20-5.40) M/uL Hgb 10.7 L (12.0-16.0) g/dl Hct 32.9 L (37.0-47.0) % MCV 88.2 (80.0-100.0) fL MCH 28.7 (25.0-34.0) pg MCHC 32.5 (32.0-36.0) g/dL RDW Std Deviation 43.8 (36.4-46.3) fL RDW Coeff of Brian 13.4 (11.5-14.5) % Plt Count 272 (130-400) K/uL MPV 10.1 (9.4-12.4) fL Immature Gran % (Auto) 0.3 % Neut % (Auto) 58.9 % Lymph % (Auto) 23.7 % [place] % (Auto) 11.9 % Eos % (Auto) 4.1 % Baso % (Auto) 1.1 % Neut # (Auto) 3.87 (1.40-6.50) K/uL Lymph # (Auto) 1.56 (1.20-3.40) K/uL [place] # (Auto) 0.78 H (0.11-0.59) K/uL Eos # (Auto) 0.27 (0.00-0.50) K/uL Baso # (Auto) 0.07 (0.00-0.20) K/uL Immature Gran # (Auto) 0.02 (0.01-0.20) K/uL ESR 31 H (0-30) mm/hr Sodium 135 L (136-145) mmol/L Potassium 4.0 (3.5-5.1) mmol/L Chloride 100 (98-107) mmol/L Carbon Dioxide 24 (21-32) mmol/L Anion Gap 11 (3-11) BUN 54 H (6-23) mg/dl Creatinine 2.16 H (0.6-1.2) mg/dl Est Cr Clr Drug Dosing Not Reportable Est GFR ( Amer) 25.0 ml/min Est GFR (Non-Af Amer) 21.6 ml/min BUN/Creatinine Ratio 25.0 H (10-20) Glucose 96 (70-99(Fasting)) mg/dl Calcium 9.0 (8.6-10.3) mg/dl Magnesium 3.1 H (1.7-2.4) mg/dl Total Bilirubin 0.6 (0.2-1.0) mg/dl AST 16 (13-39) U/L ALT 15 (7-52) U/L Alkaline Phosphatase 104 (34-104) U/L C-Reactive Protein < 0.50 (0-0.5) mg/dl Total Protein 7.1 (6.0-8.3) gm/dl Albumin 4.2 (3.4-5.0) gm/dl Globulin 2.9 (2.5-4.0) gm/dl Albumin/Globulin Ratio 1.4 (0.9-2) Lipase 69 (11-82) U/L Stl C. cayetanensis PCR Not Detected (NotDetected) Stool Rotavirus A PCR Not Detected (NotDetected) Stl Adenov F 40/41 PCR Not Detected (NotDetected) Stool Astrovirus (PCR) Not Detected (NotDetected) Stool Campylobacter PCR Not Detected (NotDetected) Stl C. diff Tox B Gene Negative Cdiff Gene (Neg) Stool Cryptosporidium PCR Not Detected (NotDetected) Stl E.coli Shiga Tox PCR Not Detected (NotDetected) Stl Enterotoxigenic E PCR Not Detected (NotDetected) Stool EPEC (PCR) Not Detected (NotDetected) Stool EAEC (PCR) Not Detected (NotDetected) Stl E. histolytica PCR Not Detected (NotDetected) Stool Giardia Lamblia PCR Not Detected (NotDetected) Stool Salmonella PCR Not Detected (NotDetected) Stool Sapovirus (PCR) Not Detected (NotDetected) Stl P. shigelloides PCR Not Detected (NotDetected) Stl Shigella/EIEC PCR Not Detected (NotDetected) St Y.enterocolitica PCR Not Detected (NotDetected) Stool Vibrio (PCR) Not Detected (NotDetected) Stl Vibrio cholerae PCR Not Detected (NotDetected) Stl Norovirus GI/GII PCR Not Detected (NotDetected) SARS-CoV-2, RNA, NAAT NEGATIVE (NEGATIVE) Administered Medications Discontinued Medications Sodium Chloride (Nss) 1,000 mls @ 999 mls/hr IV .Q1H1M STA Stop: 09/24/23 11:06 Last Infusion: 09/24/23 15:01 Dose: Infused Documented By: Admin: 09/24/23 10:20 Dose: 999 mls/hr Documented By: ADDI Lactated Ringer's (Lr) 1,000 mls @ 999 mls/hr IV .Q1H1M ONE Stop: 09/24/23 12:53 Last Infusion: 09/24/23 15:01 Dose: Infused Documented By: Admin: 09/24/23 12:09 Dose: 999 mls/hr Documented By: ADDI Loperamide HCl (Loperamide Hcl 2 Mg Cap) 2 mg PO NOW STA Stop: 09/24/23 14:37 Last Admin: 09/24/23 15:16 Dose: 2 mg Documented By: ADDI Imaging Data Radiologist's Impression: Abdomen/Pelvis CT 09/24/23 11:[address] WITHOUT CONTRAST CT DOSE: 1222.49 mGy.cm HISTORY: diarrhea, high creat TECHNIQUE: Multiaxial CT images of the abdomen and pelvis were performed without contrast. A dose lowering technique was utilized adhering to the principles of ALARA. COMPARISON STUDY: Abdomen and pelvis CT 06/24/2023. FINDINGS: Stable 1 cm subpleural nodule along the right major fissure on image 16. This is likely benign. Mild subpleural reticulation noted at the lung bases, unchanged. No pneumoperitoneum. No pneumatosis. No acute fractures identified. Prior cholecystectomy. Focal calcification at the right hepatic dome. Otherwise, the unenhanced liver, spleen, adrenal glands, and pancreas are unremarkable. No retroperitoneal lymphadenopathy. Calcified plaque within the normal caliber abdominal aorta. Multiple punctate bilateral renal calculi. No ureteral calculi. No hydronephrosis. No pelvic free fluid or pelvic lymphadenopathy. The bladder, uterus, bilateral adnexa are within normal limits. Mild circumferential thickening throughout the colon consistent with a nonspecific pancolitis. This favors an infectious or inflammatory process. Fluid-filled colon consistent with a diarrheal illness. No dilated loops of bowel to suggest an obstruction. IMPRESSION: 1. Mild pancolitis. This favors an infectious or inflammatory process. 2. No evidence for bowel obstruction. 3. Bilateral nephrolithiasis. No ureteral stones. No hydronephrosis. 4. Additional findings as described above. ACT 112: Negative or not required by law. Electronically signed by: Bruce Villavicencio M.D. 09/24/2023 11:49 AM Discharge Plan Visit Data Chief Complaint: Diarrhea Stated Complaint: AB DISCOMFORT, DIARRHEA ED Provider: Jose Jennings Discharge Problem: YAKOV (acute kidney injury), Anemia, Diarrhea, Acute dehydration, Acute UTI Patient Disposition: Admitted As Inpatient Condition: Fair Discharge Instructions Interventions: ED Discharge Assessment Last Done: 09/24/23 15:33 Discharge Problem: Anemia Qualifiers: Anemia type: unspecified type Qualified Code(s): D64.9 - Anemia, unspecified Diarrhea Qualifiers: Diarrhea type: unspecified type Qualified Code(s): R19.7 - Diarrhea, unspecified
[2023-09-24] MEDS: SODIUM CHLORIDE 0.9% 1,000 ML IV STA (10:20)
[2023-09-24 10:28] LABS: Basophils # (auto) 0.07 K/uL (0.00-0.20); Basophils % (auto) 1.1 %; Eosinophils # (auto) 0.27 K/uL (0.00-0.50); Eosinophils % (auto) 4.1 %; Hematocrit (blood only) 32.9 % (37.0-47.0); Hemoglobin 10.7 g/dl (12.0-16.0); Immature Granulocytes # (auto) 0.02 K/uL (0.01-0.20); Immature Granulocytes % (auto) 0.3 %; Lymphocytes # (auto) 1.56 K/uL (1.20-3.40); Lymphocytes % (auto) 23.7 %; Mean Corpuscular Hemoglobin 28.7 pg (25.0-34.0); Mean Corpuscular Hgb Conc 32.5 g/dL (32.0-36.0); Mean Corpuscular Volume 88.2 fL (80.0-100.0); Mean Platelet Volume 10.1 fL (9.4-12.4); Monocytes # (auto) 0.78 K/uL (0.11-0.59); Monocytes % (auto) 11.9 %; Neutrophils # (auto) 3.87 K/uL (1.40-6.50); Neutrophils % (auto) 58.9 %; Platelet Count 272 K/uL (130-400); RDW Coefficient of Variation 13.4 % (11.5-14.5); RDW Standard Deviation 43.8 fL (36.4-46.3); Red Blood Count 3.73 M/uL (4.20-5.40); White Blood Count 6.57 K/ul (4.8-10.8)
[2023-09-24 10:46] LABS: Alanine Aminotransferase 15 U/L (7-52); Albumin Globulin Ratio 1.4 (0.9-2); Albumin Level 4.2 gm/dl (3.4-5.0); Alkaline Phosphatase 104 U/L (34-104); Anion Gap 11 (3-11); Aspartate Aminotransferase 16 U/L (13-39); Bilirubin,Total 0.6 mg/dl (0.2-1.0); Blood Urea Nitrogen 54 mg/dl (6-23); Carbon Dioxide 24 mmol/L (21-32); Chloride 100 mmol/L (98-107); Est GFR (Non-African American) 21.6 ml/min; Globulin 2.9 gm/dl (2.5-4.0); Glucose 96 mg/dl (70-99(Fasting)); Lipase 69 U/L (11-82); Magnesium 3.1 mg/dl (1.7-2.4); Sodium 135 mmol/L (136-145); Total Protein 7.1 gm/dl (6.0-8.3)
--- NOTE | 2023-09-24 11:20 | History & Physical Report ---
Date of Service September 24, 2023 Assessment & Plan (1) YAKOV (acute kidney injury): Plan: Admit to med/tele Currently stable nontoxic-appearing Presented to the ED from [facility] via EMS for 3 weeks of ongoing diarrhea and history of C. difficile Creatinine today of 2.16 (baseline is near 1.1), BUN of 54 Likely due to dehydration from ongoing diarrhea and continued spironolactone and lisinopril use but will follow-up on CT of the abdomen pelvis without contrast which was obtained at the time of admission but is still in process Patient did receive 1 L NSS in the ED, if no signs of obstruction on CT scan will give additional maintenance fluids Magnesium elevated at 3.1, will obtain ekg Potassium stable at 4.0 Will hold lisinopril and spironolactone for now, renally adjust medications moving forward - Will follow UA ordered in the ER which is yet to be collected Monitor intake/output every 6 hours SQ heparin for DVT prophylaxis N.p.o. until CT results are back AM CBC, CMP, mag, PT/INR (2) Diarrhea: Plan: Patient has been having greater than 4 episodes of nonbloody diarrhea over the past 3 weeks Reportedly had a UTI approximately 3 weeks ago and was treated with a course of antibiotics Patient has a previous history of C. difficile, fortunately she is C. difficile toxin gene negative today Will hold antidiarrheals until the rest of her stool studies are back, if negative will start medical management Rest of care per YAKOV plan (3) Sleep apnea: Plan: At bedtime CPAP ordered (4) History of CAD (coronary artery disease): Plan: Patient denies recent chest pain Continue aspirin, Brilinta, and statin (5) Hypermagnesemia: Plan: Magnesium of 3.1 today, potassium stable at 4.0 Will obtain stat EKG at the time of admission Continue to monitor on telemetry Follow a.m. electrolytes (6) Hypertension: Plan: Currently stable Hold lisinopril and spironolactone for now due to YAKOV and dehydration Continue to monitor off antihypertensives for now (7) Diabetic nephropathy associated with type 2 diabetes mellitus: Plan: Monitor BSG ACHS, goal is [id number] Patient normally takes 5 units Lantus every morning, will hold basal insulin for now due to her YAKOV to prevent hypoglycemia Will start conservative regimen of CF 50 and CR 15 ACHS for now Adjust regimen as needed moving forward based on renal function and BSG Plan Patient was discussed with Dr. Plaza at the time of admission History of Present Illness Primary Care Provider: Levon Adam DO Stefany Arroyo is a 77yo female with history of CAD s/p STEMI in March 2023 with MAUREEN to LCx, HTN, DM II, Previous C. difficile infection, and ROMAN presenting from [facility] EMS on 09/24/2023 due to due to approximately 3 weeks of ongoing diarrhea and abdominal pain. Reportedly had a UTI approximately 3 weeks ago and was treated with antibiotics at [facility]. She was noted to be mildly hypotensive on arrival at 100/46 but was otherwise stable. Labs were significant for creatinine of 2.16 (baseline is near 1.1), magnesium of 3.1, negative COVID 19 screening, and stool panel in process along with C. difficile testing. CT of the abdomen pelvis without contrast was obtained but yet to be read prior to admission. Prior to admission the patient was given 1 L NSS. Stefany was sitting in bed in no acute distress at the time of exam, she had just returned from her CT scan. She confirms that she has been having ongoing diarrhea for the past 3 weeks. States it can be up to 8-10 episodes a day, denies any blood in the stool. When asked she denies any recent abdominal pain. Denies recent fever, chills, chest pain, shortness of breath, cough, nausea/vom iting, urinary symptoms such as dysuria/hematuria/urinary frequency, lower extremity swelling, and recent trauma. I explained that she has an YAKOV likely due to dehydration, she states "now that you mention that, I have been urinating much less frequently over the past few days". She confirms that she is a DNR/DNI. Please refer to Dr. Plaza's attestation for any changes to the treatment plan Allergies Allergy/AdvReac Type Severity Reaction Status Date / Time latex Allergy Mild ON [facility] Verified 09/24/23 14:24 LIST-per patient- thinks rash niacin Allergy Unknown ON [facility] Verified 09/24/23 14:24 [From [facility] MED LIST Extended-Release] simvastatin Allergy Unknown ON Verified 09/24/23 14:24 [facility] LIST- unsure Home Medications Medication Instructions Recorded Confirmed Type glucose 4 gram chewable tablet 1 tab PO DAILY PRN HYPOGLYCEMIA 11/26/17 09/29/23 History tolterodine 2 mg tablet 2 mg PO BID 11/26/17 09/29/23 History acetaminophen 325 mg tablet 650 mg PO Q6H PRN Fever Or Pain 06/12/18 09/29/23 History (Tylenol) nystatin 100,000 unit/gram topical 1 applic topical BID PRN RASH IN 11/24/22 09/29/23 History cream ABD FOLDS NEEDED pen needle, diabetic, safety 30 #100 ea 01/12/23 09/29/23 History gauge x 1/3" (Novofine Autocover) methenamine hippurate 1 gram tablet 1 g PO Q12H #180 tabs 02/12/23 09/29/23 Rx spironolactone 25 mg tablet 25 mg PO BID #60 tabs 03/20/23 09/29/23 Rx magnesium citrate 150 ml PO DAILY PRN No BM x 2 days 03/26/23 09/29/23 Rx #296 mL metoprolol tartrate 50 mg tablet 50 mg PO BID #60 tabs 04/08/23 09/29/23 Rx ticagrelor 90 mg tablet (Brilinta) 90 mg PO BID #60 tabs 04/08/23 09/29/23 Rx citalopram 20 mg tablet 20 mg PO QAM 05/09/23 09/29/23 History fluorometholone 0.1 % eye 1 drp OPB DAILY 05/09/23 09/29/23 History drops,suspension hydrocortisone 1 % topical cream 1 applic topical BID PRN Rash 05/09/23 09/29/23 History lisinopril 40 mg tablet 40 mg PO QAM 05/09/23 09/29/23 History vit C 250 mg-vit E 90 mg-zinc 40 1 tab PO BID 05/09/23 09/29/23 History mg-copper 1 [id number]-wyxjva capsule (PreserVision AREDS-2) aspirin 81 mg tablet,delayed 81 mg PO QAM #30 tabs 05/10/23 09/29/23 Rx release melatonin 10 mg capsule 10 mg PO HS sleep #30 caps 08/04/23 09/29/23 Rx insulin lispro 100 unit/mL 3 unit (0.03 mL) subcut TID #15 mL 08/13/23 09/29/23 Rx subcutaneous pen (Humalog KwikPen (U-100) Insulin) polyethylene glycol 3350 17 gram 17 g PO QAM PRN constipation #0 ea 08/27/23 09/29/23 Rx oral powder packet psyllium husk 3.4 gram/5.4 gram 1 tsp PO DAILY PRN constipation #0 08/27/23 09/29/23 Rx oral powder (Metamucil) grams gabapentin 100 mg capsule 100 mg PO TID #45 caps 08/28/23 09/29/23 Rx insulin glargine 100 unit/mL (3 5 unit (0.05 mL) subcut QAM #3 mL 08/28/23 09/29/23 Rx mL) subcutaneous pen (Lantus Solostar U-100 Insulin) timolol 0.5 % eye drops 1 drp OPB QAM #5 mL 08/31/23 09/29/23 Rx flash glucose sensor (FreeStyle 09/08/23 09/29/23 History Savanna 2 Sensor kit) Qc Natural Veggie 95% Powder See Rx Instructions .Route .COMPLEX 09/24/23 09/29/23 History atorvastatin 40 mg tablet 40 mg PO HS 09/24/23 09/29/23 History dulaglutide 4.5 mg/0.5 mL 4.5 mg subcut WK 09/24/23 09/29/23 History subcutaneous pen injector (Trulicity) isosorbide mononitrate 60 mg 60 mg PO QAM 09/24/23 09/29/23 History tablet,extended release 24 hr nystatin 100,000 unit/gram topical 1 applic topical BID PRN Rash 09/24/23 09/29/23 History powder pantoprazole 40 mg tablet,delayed 40 mg PO QAM 09/24/23 09/29/23 History release quetiapine 25 mg tablet 25 mg PO QAM 09/24/23 09/29/23 History Bifidobacterium infantis 10.5 mg 10.5 mg PO DAILY #20 tabs 09/26/23 09/29/23 Rx (10 million cell) chewable tablet (Align) loperamide 2 mg capsule 4 mg (2 x 2 mg) PO Q4H PRN loose 09/26/23 09/29/23 Rx stool #30 caps acetaminophen 325 mg tablet 650 mg PO HS 09/29/23 09/29/23 History amoxicillin 500 mg capsule 2,000 mg PO BID PRN 1 HOUR PRIOR 09/29/23 09/29/23 History TO DENTAL VISIT lorazepam 0.5 mg tablet 0.5 mg PO HS anxiety #30 tabs 09/29/23 Rx Past Med/Surg History Problem List (Updated 09/27/23 @ 00:07 by Lesa Ortega) Acute UTI (Acute) Acute dehydration (Acute) Diarrhea (Acute) Anemia (Acute) YAKOV (acute kidney injury) (Acute) Hypermagnesemia Gait instability (Acute) Imbalance Urinary incontinence History of CAD (coronary artery disease) (Acute) Anemia (Acute) Chest pain (Acute) Chest pain Diabetic retinopathy associated with type 2 diabetes mellitus Left nephrolithiasis Overactive bladder GERD (gastroesophageal reflux disease) hx Sleep apnea cpap nightly with 3lpm of oygen Depression Per records Glaucoma CAD (coronary artery disease) Occlusion of distal portion of left circumflex coronary artery Proteinuria Chronic kidney disease, stage 3a Vitamin D deficiency Diabetic nephropathy associated with type 2 diabetes mellitus Enteritis, inflammatory disorder of small intestine (Chronic Unknown) Fatigue (Acute) Generalized weakness (Acute) Knee pain (Acute) Radiculopathy, lumbar region Spinal stenosis of lumbar region Hypertension DVT prophylaxis Toe ulcer Pressure ulcer, stage III (Acute) Diabetes mellitus type 2 in obese Dyslipidemia Statin myopathy Peripheral neuropathy Hyponatremia Medical History UTI (urinary tract infection) YAKOV (acute kidney injury) STEMI (ST elevation myocardial infarction) History of recurrent UTI (urinary tract infection) Insomnia Per records Neuropathy per patient- hands and feet Hypertension Per records History of macular degeneration Chronic back pain Diabetes mellitus, type 2 IDDM Neurogenic claudication due to lumbar spinal stenosis History of nephrolithiasis Nasal bone fracture Cholecystitis, acute Surgical History History of appendectomy History of bilateral tubal ligation History of cataract surgery History of cholecystectomy History of colonoscopy History of cornea transplant Hx of total knee arthroplasty S/P epidural steroid injection Status post spinal surgery Family History Mother Breast cancer Aunt Colorectal cancer Diabetes Father Myocardial infarction Other No family history of adverse response to anesthesia No pertinent family history Denies family history of Ovarian cancer Prostate cancer Social History Smoking Status: Former smoker Tobacco Type: Cigarettes Age Quit Using Tobacco: 64; Cigarettes Per Day: 2 packs/day; Second Hand Exposure: No; Do You Dip or Chew Tobacco: No; Hx Alcohol Use: No Hx Substance Use: No Preferred Language: [place] Communication Ability: Effective Visual Impairment: No Limitations Hearing Ability: Normal Serologist Required: No Beliefs That Will Affect Care: None marital status: Current Living Situation: Personal Care Facility Current Living Situation Comment: [facility] current occupational status: retired current occupation: Retired How many Children do You have: 2 Feels Safe at Home: Yes Childhood Exposure to Second-Hand Smoke: No Diet: regular caffeine: No during the past year weight has: remained stable Dental Care, Regularly: Yes Physical Activity Frequency: Does not Exercise Seatbelt Use: sometimes Sunscreen Use: Yes Assistive Devices: CPAP, Oxygen - at Night and Walker Physical Exam Physical Exam: Physical Exam: General: In no acute distress, stated age, non-toxic appearing HEENT: Normocephalic,healing scar on the anterior scalp from a fall approximately 1 month ago without signs of infection, no scleral icterus, pupils around round, symmetrical, and reactive to light, dry mucus membranes, trachea midline, no thyromegaly Chest/Pulm: No respiratory distress, symmetrical chest expansion, clear breath sounds throughout Cardiac: RRR, no murmurs noted Abdomen: Negative for ascites and bruising, normoactive bowel sounds, soft, non-tender to palpation throughout Musculoskeletal: Symmetrical and without signs of acute trauma, upper and lower extremities with full ROM, no atrophy, spasticity, or flaccidity Extremities: Radial, dorsalis pedis, and posterior tibial pulses are intact and symmetrical, no edema noted in the BL LE's Skin: Warm, dry, no rashes , lesions, or scars noted Neuro: Alert and oriented to person, place, month, year, and president, no focal defects, no tremors noted Psych: No acute distress, calm and cooperative during the exam Results & Data Results & Data Vital Signs (Past 12 Hours) Vital Signs Temp Pulse Resp BP Pulse Ox O2 Del Method 09/24/23 10:13 85 09/24/23 09:39 86 18 96 Room Air 09/24/23 09:39 36.7 C 86 18 100/46 L 96 Room Air Laboratory Results Abnormal lab results 09/24/23 Range/Units 10:11 RBC 3.73 L (4.20-5.40) M/uL Hgb 10.7 L (12.0-16.0) g/dl Hct 32.9 L (37.0-47.0) % Emmet # (Auto) 0.78 H (0.11-0.59) K/uL Sodium 135 L (136-145) mmol/L BUN 54 H (6-23) mg/dl Creatinine 2.16 H (0.6-1.2) mg/dl BUN/Creatinine Ratio 25.0 H (10-20) Magnesium 3.1 H (1.7-2.4) mg/dl Code Status & VTE Plan Code Status DNR/DNI VTE Prophylaxis Plan VTE Prophylaxis will be ordered: Yes Supervising Physician Co-Signing Physician Notes I personally saw and examined the patient. I verified all rodriguez points and agree with Jason Crowder PA-C with the following exceptions and/or additions: 77 year old female presents to the ER with diarrhea causing subsequent YAKOV. Planned on having colonoscopy outpatient but delayed due to recent coronary stent placement. O/E HS RRR, no murmurs, Chest CTAB, Abdo SNT, no CVA tenderness A/P Diarrhea, YAKOV - c. diff and stool PCR neative. consult GI to consider inpatient colonoscopy (will rush cardiac clearance prior to this). IV fluids, repeat Cr in AM PG Care Time/CCT Total # of Minutes Spent Total Time Spent with Patient: Total time spent is greater than 50% in coordination of care (as documented) at patient's floor/unit and/or counseling patient: Coding [place] [address] INT INP/OBS CARE 2/55MIN Patient Type Established Medical Decision Making Moderate Complexity Diagnoses YAKOV (acute kidney injury) N17.9 Diarrhea R19.7 Sleep apnea G47.30 History of CAD (coronary artery disease) Z86.79 Hypermagnesemia E83.41 Primary hypertension I10 Hypertension type: primary hypertension Diabetic nephropathy associated with type 2 diabetes mellitus E11.21 (6) Hypertension Hypertension type: primary hypertension Qualified Code(s): I10 - Essential (primary) hypertension
--- NOTE | 2023-09-24 11:51 | CT Scan Report ---
ABDOMEN AND PELVIS CT WITHOUT CONTRAST CT DOSE: 1222.49 mGy.cm HISTORY: diarrhea, high creat TECHNIQUE: Multiaxial CT images of the abdomen and pelvis were performed without contrast. A dose lo wering technique was utilized adhering to the principles of ALARA. COMPARISON STUDY: Abdomen and pelvis CT 06/24/2023. FINDINGS: Stable 1 cm subpleural nodule along the right major fissure on image 16. This is likely reggie ign. Mild subpleural reticulation noted at the lung bases, unchanged. No pneumoperitoneum. No pneumat osis. No acute fractures identified. Prior cholecystectomy. Focal calcification at the right hepatic dome. Otherwise, the unenhanced liver, spleen, adrenal glands, and pancreas are unremarkable. No retr operitoneal lymphadenopathy. Calcified plaque within the normal caliber abdominal aorta. Multiple pun ctate bilateral renal calculi. No ureteral calculi. No hydronephrosis. No pelvic free fluid or pelvic lymphadenopathy. The bladder, uterus, bilateral adnexa are within normal limits. Mild circumferentia l thickening throughout the colon consistent with a nonspecific pancolitis. This favors an infectious or inflammatory process. Fluid-filled colon consistent with a diarrheal illness. No dilated loops of bowel to suggest an obstruction. IMPRESSION: 1. Mild pancolitis. This favors an infectious or inflammatory process. 2. No evidence for bowel obstruction. 3. Bilateral nephrolithiasis. No ureteral stones. No hydronephrosis. 4. Additional findings as described above. ACT 112: Negative or not required by law. Electronically signed by: Bruce Villavicencio M.D. 09/24/2023 11:49 AM
[2023-09-24 11:54] LABS: Adenovirus F 40/41 PCR Not Detected (NotDetected); Astrovirus PCR Not Detected (NotDetected); Campylobacter PCR Not Detected (NotDetected); Cryptosporidium PCR Not Detected (NotDetected); Cyclospora cayetanensis PCR Not Detected (NotDetected); Entamoeba histolytica PCR Not Detected (NotDetected); Enteroaggregative E.coli(EAEC) Not Detected (NotDetected); Enteropathogenic E.coli (EPEC) Not Detected (NotDetected); Enterotoxigenic E.coli (ETEC) Not Detected (NotDetected); Giardia lamblia PCR Not Detected (NotDetected); Norovirus GI/GII PCR Not Detected (NotDetected); Plesiomonas shigelloides PCR Not Detected (NotDetected); Rotavirus A PCR Not Detected (NotDetected); Salmonella PCR Not Detected (NotDetected); Sapovirus PCR Not Detected (NotDetected); Shiga-like Toxin E.coli (STEC) Not Detected (NotDetected); Shigella/Enteroinvasive E.coli Not Detected (NotDetected); Vibrio cholerae PCR Not Detected (NotDetected); Vibrio species PCR Not Detected (NotDetected); Yersinia enterocolitica PCR Not Detected (NotDetected)
[2023-09-24] MEDS ORDERED: ACETAMINOPHEN 325 MG TAB PO PRN (11:54)
[2023-09-24] MEDS ORDERED: GLUCOSE 40% GEL 15 GM TUBE PO PRN (11:55)
[2023-09-24] MEDS ORDERED: CARBOHYDRATES FOR HYPOGLYCEMIA PO PRN (11:55)
[2023-09-24] MEDS ORDERED: GLUCAGON FOR INJ 1 MG VIAL SQ PRN (11:55)
[2023-09-24] MEDS ORDERED: DEXTROSE 50% 50 ML SYRINGE IV PRN (11:55)
[2023-09-24] MEDS ORDERED: GLUCOSE 10 TAB/TUBE PO PRN (11:55)
[2023-09-24] MEDS: LACTATED RINGER'S 1,000 ML IV ONE (12:09)
[2023-09-24 13:24] LABS: Appearance Urine Clear (Clear); Bacteria Urine Automated 2+ (None Seen); Bilirubin Urine Negative (Negative); Blood Urine Negative (Negative); Cast Urine Automated 0-2 /lpf (0-2); Color Urine Yellow; Glucose Urine UA Negative (Negative); Ketones Urine Negative (Negative); Leukocyte Esterase Urine 2+ (Negative); Nitrite Urine Negative (Negative); Protein Urine Negative (Negative); RBC Urine Automated 0-2 /hpf (0-2); Specific Gravity Urine 1.007 (1.000-1.030); Urobilinogen Urine Negative (Negative); WBC Urine Automated 21-50 /hpf (0-5)
[2023-09-24 13:48] LABS: C Reactive Protein < 0.50 mg/dl (0-0.5)
[2023-09-24] MEDS: LOPERAMIDE HCL 2 MG CAP PO STA (15:16)
[2023-09-24] MEDS ORDERED: LOPERAMIDE HCL 2 MG CAP PO PRN (15:52)
[2023-09-24] MEDS: HEPARIN SOD 5,000 UNIT/0.5 ML VIAL SQ SCH (18:24)
[2023-09-24] MEDS: INSULIN ASPART PER UNIT CHARGE SC SCH (18:26)
[2023-09-24] MEDS: LORazepam 0.5 MG TAB PO SCH (20:22)
[2023-09-24] MEDS: MELATONIN 3 MG TAB PO SCH (20:22)
[2023-09-24] MEDS: ATORVASTATIN 40 MG TAB PO SCH (20:23)
[2023-09-24] MEDS: METOPROLOL TARTRATE 50 MG TAB PO SCH (20:23)
[2023-09-24] MEDS: GABAPENTIN 100 MG CAP PO SCH (20:23)
[2023-09-24] MEDS: TICAGRELOR 90 MG TAB PO SCH (20:24)
--- NOTE | 2023-09-24 20:32 | Electrocardiogram Report ---
Test Reason : Blood Pressure : / mmHG Vent. Rate : 081 BPM Atrial Rate : 081 BPM P-R Int : 162 ms QRS Dur : 142 ms QT Int : 440 ms P-R-T Axes : 054 035 018 degrees QTc Int : 511 ms Normal sinus rhythm Right bundle branch block Abnormal ECG When compared with ECG of 22-AUG-2023 03:34, No significant change was found Confirmed by Arnie Williamson ([id number]) on 09/24/2023 8:32:06 PM Referred By: REFERRED SELF Confirmed By:Martín Williamson
[2023-09-24] MEDS: LACTATED RINGER'S 1,000 ML IV SCH (22:51)
--- OUTSIDE RECORDS SUMMARY | 2023-09-25 02:36 | External Medical Summary | Summary of Care ---
Author Name Unknown Organization [facility] Address [address] [place] [address] Phone [phone] Care Team Providers Care Operating Room Coordinator Name Role Phone Levon Adam Primary Care Provider Reason for Visit * Reason Comments Follow Up Encounter Details Date Type Department Care Team (Late st Contact Info) Description 09/16/2023 11:45 AM EDT Office Visit Ophthalmology, [facility] [address] [place] [address] Arnie Palumbo DO [address] [place] [address] Branch retinal vein occlusion of right eye, unspecified complication status* Allergies Active Allergy Reactions Criticality Noted Date Comments Latex 12/31/2005 "Bumpy and itchy" Niacin 01/19/2007 Intolerance, painful flushing and burning Simvastatin 06/25/2006 Has had episode rhabdomolysis documented as of this encounter (statuses as of 09/16/2023) Medications Medication Sig Dispensed Refills Start Date End Date Status ACETAMINOPHEN 325 MG PO TABSIndications:H eadache(784.0) Two pills by mouth every 6 hours as needed for fever or pain: give 2 tab every evening at bedtime. 100 Tab 0 12/31/2012 Active glucose 4 G CHEWIndications:D M type [...] both eyes in the morning. Each eye. 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 05/26/2017 Active Multiple Vitamins-Minerals (PRESERVISION AREDS 2) Capsule TAKE 1 CAPSULE BY MOUTH TWICE DAILY FOR SUPPLEMENT 60 Cap 11 08/20/2017 Active Insulin Glargine 100 UNIT/ML Subcutaneous Solution Inject under the skin at bedtime. Active Artificial Tear Solution (SOOTHE XP) SOLN Instill 1 Drop into both eyes 4 times a day. 1 Bottle 6 02/08/2018 Active Methenamine Hippurate 1 g TABS Take by mouth 2 times a day. Active Diclofenac Sodium 1 % External Gel (Voltaren) Apply to left foot twice daily. 100 g 1 10/03/2020 Active LORazepam 0.5 MG Oral Tablet (Ativan) Take 1 Tablet by mouth at bedtime. 05/10/2021 Active Citalopram Hydrobromide 20 MG Oral Tablet (CeleXA) Take 1 Tablet by mouth in the morning. 04/23/2021 Active Gabapentin 800 MG Oral Tablet (Neurontin) 03/20/2022 Active Ketoconazole 2 % External Cream 01/01/2022 Active oxygen IN GAS 3 LPM bled through BIPAP during hours of sleep 1 Each 06/20/2022 Active Trulicity 0.75 MG/0.5ML Subcutaneous Solution Pen-injector 0.75 mg. 09/01/2022 Active Gabapentin 100 MG Oral Capsule (Neurontin) Take 1 Capsule by mouth in the morning and 1 Capsule at noon and 1 Capsule before bedtime. 02/24/2023 Active Spironolactone 25 MG Oral Tablet (Aldactone) Take 1 Tablet by mouth in the morning. 03/20/2023 Active Brilinta 90 MG Oral Tablet (Ticagrelor) Take 1 Tablet by mouth in the morning and 1 Tablet before bedtime. Active Metoprolol Tartrate 50 MG Oral Tablet (Lopressor) Take 1 Tablet by mouth in the morning and 1 Tablet before bedtime. Active Atorvastatin Calcium 40 MG Oral Tablet (Lipitor) Take 1 Tablet by mouth at bedtime. Active Magnesium Citrate Powder Use as directed. NEEDED Active Isosorbide Mononitrate ER 60 MG Oral Tablet Extended Release 24 Hour (Imdur) Take 1 Tablet by mouth in the morning. Active Melatonin 10 MG Oral Tablet Chewable Take by mouth at bedtime as needed. Active Pantoprazole Sodium 40 MG Oral Tablet Delayed Release (Protonix) Take 1 Tablet by mouth in the morning. Active QUEtiapine Fumarate 25 MG Oral Tablet (SEROquel) Take 1 Tablet by mouth every morning. Active Albuterol Sulfate HFA 108 (90 Base) MCG/ACT Inhalation Aerosol Solution Inhale 2 Puffs by mouth every 6 hours as needed. Active Lisinopril 40 MG Oral Tablet Take 1 Tablet by mouth in the morning. 09/08/2023 Active Nystatin 299145 UNIT/GM External Cream 09/02/2023 Active Nystatin 088891 UNIT/GM External Powder (Nystop) 09/02/2023 Active Loperamide HCl 2 MG Oral Capsule (Imodium) Take 1 Capsule by mouth 4 times a day as needed. 08/19/2023 Active Trulicity 4.5 MG/0.5ML Subcutaneous Solution Pen-injector Inject 4.5 mg under the skin once a week. 07/27/2023 Active HumaLOG KwikPen 100 UNIT/ML Subcutaneous Solution Pen-injector 08/13/2023 Active Lantus SoloStar 100 UNIT/ML Subcutaneous Solution Pen-injector 09/03/2023 Active cloNIDine (CATAPRES) 0.1 MG TabletIndications :HTN, goal to be determined TAKE (1) TABLET BY MOUTH 2 TIMES A DAY. *HTN* 60 Tab 5 09/02/2016 4 Discontinu ed(Medicat ion List Clean Up) Fluconazole 150 MG Oral Tablet (Diflucan) Take 1 Tablet by mouth in the morning. Discontinu ed(Medicat ion List Clean Up) Hospital, [...] as of this encounter (statuses as of 09/16/2023) Active Problems Problem Noted Date Diagnosed Date [...] as of this encounter (statuses as of 09/16/2023) Resolved Problems Problem Noted Date Diagnosed Date [...] #27. OBSTIPATION 08/17/2010 07/19/2016 Urinary tract infection 08/17/201008/2016 Dysuria 08/17/2010 06/06/2011 Obesity, morbid (more than [...] term ACTIVE CASE MANAGEMENT Isa Reed RN [phone] 09/12/2008 12/31/2009 Left internal carotid stenosis 40-50% [...] as of this encounter (statuses as of 09/16/2023) Immunizations Name Administration Dates Next Due COVID-19 mRNA, LNP-s, No Pre serve, 2-Dose Series (Moderna) 10/16/2020,04/24/2020,03/27/2020 H1N1 2009 Influenza, IM 04/06/2009 Hepatitis B, 20+ yrs 10/05/2013 Pneumococcal Conjugate Vacc, 13 Valent (Prevnar) 09/10/2015 Pneumococcal Polysaccharide PPV23 (Pneumovax) 06/17/2013,07/12/2001 Seasonal Influenza, PF, 6 M & above, IM , (FluLaval or Fluzone) 01/07/2017 Seasonal Influenza, Quadriva lent Hd (Fluzone Hd) 12/22/2022 Seasonal Influenza, Quadriva lent Hd, 65+ Yrs 12/23/2020,12/21/2019 Seasonal Influenza, Quadriva lent, No Preserve, IM 12/24/2015 Seasonal Influenza, Split, I IV3, With Preserve, Inj 12/14/2017,12/23/2014,01/02/2014,12/14,01/02/2012,12/25/2010,12/09/19 10,11/16/2008,01/05/2008,01/19/2007,0 04/16/2006,02/04/2002,02/20/2000 02/19/2001 Seasonal Influenza, Trivalen t, Adjuvanted, 65+ yrs 12/14/2018 TDAP, Age 7 and older, IM (Adacel) 01/20/2020, Varicella Zoster Vaccine (Adult) 05/12/2014 documented as of this encounter Social History Tobacco Use Types Packs/Day Years Used Date Smoking Tobacco: Former Cigarettes Q uit: 08/17/2008 Smokeless Tobacco: Never Comments:1 1/2 daily x 40+ y rs; Quit in 2008 Alcohol Use Standard Drinks/Week Comments Yes 0 (1 standard drink = 0.6 oz pur e alcohol) rare PHQ-2 Answer Date Recorded PHQ-2 Score 7 01/17/2018 Utilities Answer Date Recorded Do you have trouble paying y our heating, water, or electric bill? (Adult - for ages 18 years and over) Not on file 09/01/2023 Is your family able to pay t he heat, water, or electric bill? (Household - for ages 0-17 years) Not on file 09/01/2023 Does your family have access to good internet? (Household - for ages 0-17 years) Not on file 09/01/2023 Social Connections Answer Date Recorded How often do you feel lonely or isolated from those around you? (Adult - for ages 18 years and over) Not on file 09/01/2023 Sex and Gender Information Value Date Recorded Sex Assigned at Not on file Gender Identity Not on file Sexual Orientation Not on file Job Start Date Occupation Industry Not on file Not on file Not on file documented as of this encounter Progress Notes * Arnie Palumbo, - 09/16/2023 11:45 AM EDT [facility] [place] Nursing notes reviewed. Eye vitals reviewed. Mood and Affect: normal HPI: Stefany Arroyo is a 77 year old female who presents for AMD No other eye complaints. Denies significant pain. Base Eye Exam Visual Acuity (Snellen - Linear) Right Left Dist cc 20/800 -1 20/80 -1 Dist ph cc NI NI Tonometry (Tonopen, 12:01 PM) Right Left Pressure 15 Pupils Pupils APD Right PERRL None Left PERRL Visual [place] (Counting fingers) Right Left Full Restrictions Total superior nasal, inferior nasal deficiencies Extraocular Movement Right Left Full, Ortho Full, Ortho Neuro/Psych Oriented x3: Yes Dilation Both eyes: 0.5% Proparacaine @ 12:01 PM Dilation #2 Both eyes: 1.0% Mydriacyl, 2.5% Phenylephrine @ 12:01 PM Dilation Comments Patient cautioned that effects of dilation may last 2-7 hours dependant upon individual reaction. It was discussed that driving while dilated is not recommended. EXTERNAL: The ocular adnexae are unremarkable. SLE: Lids/Lashes: Normal Conjunctiva/Sclera: quiet OU Cornea: clear w/ DSEK OU Anterior Chamber: deep and quiet OU Iris: normal OU; no NVI OU Lens: PCIOL OU Dilated fundus exam OD: vitreous: clear optic nerve: 0.6 w/ vertical thinning and temporal pallor, no edema/NVD macula: +fluid, dwarf tree grower, central atrophy vessels: +superior brvo, ischemic vessels, +pre retinal heme--improved periphery: PRP, +dwarf tree grower, no RT/RD Dilated fundus exam OS: vitreous: clear optic nerve: 0.45, no edema/pallor/NVD macula: drusen, trace dwarf tree grower vessels: wnl periphery: trace dwarf tree grower, no RT/RD OCT Interpretation: OD: resolved cme w/ rpe disruption, incomplete PVD - improved 209m prior mixed, prior improved, prior worse, prior improved, prior worse 132um, prior worse 210um, prior improved 108um, prior [id number], prior worse, prior improved, prior worse OS: resolved trace recurrent srfluid, incomplete pvd - STABLE, prior , STABLE, prior STABLE, prior improved 59um prior worse 72um, prior STABLE, prior STABLE, prior improved 133um, prior worse 83um, prior improved, prior worse A/P: 1. Age-related macular degeneration OD: wet - s/p Eylea (02/14/21, 12-05-20, 08-29-20, 07-11-20, 05-02-20, 01-18-20, 12-06-19, 20, 20, 06-30-19, 20, 19, 12-21-18, 10-05-18, 08-17-18, 05-25-18, 04-13-18, 02-24-18, 01-13-18, 12/10/17, 10-13-17, 08-13-2017, 07-09-2017, 06-11-2017, 05-13-2017,04-15-17, 03-05-17, 01-21-17, 12/17/16, 11-18-16, 09-25-16, 08-14-16, 07-17-16, 06-05-16, 04-29-2016, 01/09/16-pt did not f/u as recommended) -BCVA poor even when OCT dry -no injection -An examination for this condition was completed which is unrelated to the procedure that was performed today. -monitor OS: wet - s/p Eylea (07/01/23, 04/20/23, 02/02/23, 11/12/22, 08/28/22, 06/05/22, 03/21/22, 01/10/22, 10/31/21, 09/10/21, 07/25/21, 06/13/21, 04/15/21, 03/18/21, 01/31/21, 12-05-20, 08-29-20, 07-11-20, 21, 01-17-20, 12-05-20, 09-06-20......10-12-18, 08-25-18, 05-25-18, 04-13-18) - 11 weeks; has gone 11 month; good in past at 6 and 8 weeks -recommend AREDS2 MVI as directed and Amsler grid qday 2. 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 -monitor 3. NPDR -DM2 -monitor -recommend HgbA1C <7, BP and lipid control. 4. S/p DSEK OU -for Fuchs -[address] Ashraf -using FML qam OU and timolol qam OU 5. Pseudophakia OU -2009 -by Dr. Mendoza -luiza 6. Ptosis OS -since IOL/DSEK OS -s/p bleph by Dr. Rockwell on s/p 10/07/2017 7. Glaucoma OU -on timolol -followed by Dr. Cruz Plan: F/u 10-12 weeks - dilate and OCT OU Arnie Palumbo DO CC: Yonatan Cruz MD PCP: Petar Hightower DO TIMEOUT PROCEDURE: correct patient identity-YES correct procedure and consent-YES verified side and site-YES correct patient position-YES all necessary equipment/prior studies present-YES reviewed special requirements of this patient-YES PROCEDURE: Intravitreal injection of Eylea (aflibercept) 2mg OS INFORMED CONSENT: Risks, benefits and alternatives have been discussed with the patient. Risks include, but are not limited to: retinal tears, detachments, hemorrhage, glaucoma, infection, cataracts, need for more procedures and the potential risk of arterial thromboembolic events following use of intravitreal VEGF inhibitors defined as nonfatal stroke, nonfatal myocardial infarction or vascular . Patient is aware of these risks and consents to the procedure. DESCRIPTION OF PROCEDURE: The procedure site was confirmed. Topical proparacaine was applied to the surface of the eye after which subconjunctival anesthetic was administered. The area was prepped in the standard aseptic manner with 5% Betadine solution. An eyelid speculum was placed and 2mg (0.05 ml) of Eylea was injected 3.75 mm posterior to the limbus into the midvitreous cavity with a 30 gauge short needle. The eye speculum was removed, Betadine was flushed from the eye and optic nerve perfusion was insured. The patient tolerated the procedure without difficulty and was given followup instructions and instructed to use ophthalmic ointment 3x/day as needed. Arnie Palumbo DO, performed the procedure in its entirety. documented in this encounter Nursing Notes * Sara Cid RN - 09/16/2023 12:19 PM EDT Stefany Arroyo to receive 27 Eylea 2mg Injection of the Left eye. Correct eye confirmed with patient and marked by Arnie Palumbo DO Eylea 2mg lot # [id number] Exp. Date: 07/2024 * Elzbieta Vail LPN - 09/16/2023 11:51 AM EDT Stefany Arroyo is a 77 year old year old female who presents for AMD OU. Last Office Visit: 07/01/2023 (in office), Visit date not found (telemedicine) Patient currently states "sometimes it gets a little foggy" Are you diabetic? Yes. Do you check your blood sugars daily? YES. Fasting BS this mornin mg/dl. Last Hemoglobin A1C: Lab Results Component Value Date/Time HGBA1C 8.0 (A) 03/12/2017 12:00 AM HGBA1C 7.5 (A) 09/23/2016 12:00 AM HGBA1C 7.5 (H) 05/28/2016 08:05 AM HGBA1C 7.1 (H) 05/06/2016 06:40 AM HGBA1C 8.2 (H) 12/25/2015 06:[address] no OCT image(s) of both eyes acquired and filed/scanned into chart. documented in this encounter Plan of Treatment Upcoming Encounters Date Type Department Care Team (Late st Contact Info) Description 06/30/2024 11:00 AM EDT Office Visit [facility] [address] [facility] [place] [phone] Farideh Marin DO [address] [facility] [place] [address] Scheduled Orders Name Type Priority Associated Diagnoses Orde r Schedule RETINA SCAN DIAGNOSTIC IMAGE, POSTERIOR Procedures Routine Branch retinal vein occlusion of right eye, unspecified complication status Ordered: 09/16/2023 Scheduled Procedures Name Priority Associated Diagnoses Date/Ti ny COLONOSCOPY FLEXIBLE PROXIMAL DIAGNOSTIC Recall History of colon polyps Melena Abdominal pain, epigastric Adenomatous polyps ESOPHAGOGASTRODUODENOSCOPY ( EGD), FLEXIBLE, TRANSORAL, DIAGNOSTIC Recall History of colon polyps Melena Abdominal pain, epigastric Adenomatous polyps Health Maintenance Due Date Last Done Comments Hepatitis B Vaccine (2 of 3 - 19+ 3-dose series) 11/02/2013 10/05/2013 Morel's Esophagus Surveilance 09/09/2014 09/10/2011, 09/10/2011, 01/15/2009, Additional history exists HbA1c 09/10/2017 03/12/2017, 09/13, 05/28/2016, Additional history exists Diabetic Foot Exam 09/29/2017 09/29/2016, 0 06/22/2015, 02/20/2014, Additional history exists Albumin/Creatinine Ratio 03/12/2018 017, 03/12/2017, 12/25/2015, Additional history exists GFR 03/12/2018 03/12/2017, 02/14, 12/25/2015, Additional history exists Depression Monitoring 03/13/2018 03/13/2017 DXA Scan 05/29/2018 05/29/2014, 05/14, 05/22/2005, Additional history exists Colonoscopy 08/28/2022 08/28/2017, 08/14, 07/03/2014, Additional history exists COVID-19 Vaccine ( season) 2023 01/14/2023, 10/16/2020, 04/24/2020, Additional history exists Diabetic Eye Exam 11/13/2023 11/12/2022, , 08/28/2022, Additional history exists Influenza Vaccine (FLU shot) (#1) 2023 12/22/2022, 12/23/2020, 12/21/2019, Additional history exists DTaP,Tdap,and Td Vaccines (3 - Td or Tdap) 01/19/2030 01/20/2020, 01/05/2008 Pneumococcal Vaccine: 65+ Years Completed 09/10/2015, 06/17/2013, 07/12/2001 RETIRED - COLONOSCOPY-EVERY 5 YRS AGES 18-100 Discontinued 08/28/2017, 08/28/2017, 07/03/2014, Additional history exists Zoster Vaccines Completed 01/14/2023, 10/2022, 05/12/2014 HPV (Gardasil) Vaccine Aged Out No lo nger eligible based on patient's age to complete this topic MENINGOCOCCAL (MENACTRA/MENVEO) Aged Out No longer eligible based on patient's age to complete this topic documented as of this encounter Medical Devices Not on filedocumented as of this encounter Visit Diagnoses Diagnosis Branch retinal vein occlusion of right eye, unspecified complication status- Primary documented in this encounter Administered Medications Active Administered Medications - up to 3 most recent administrations Medication Order MAR Action Action Date Dose Rate Site Aflibercept (Eylea) intraviteal prefilled syringe 2 mg 2 mg, Intravitreal, PRN Other, Starting on Thu11/12/22 at 1052, Until Heidi 11/12/23 at 1051, For 365 days Given 09/16/2023 12:21 PM EDT 2 mg Eye Left Given 07/01/2023 11:51 AM EDT 2 mg E ye Left Given 04/20/2023 11:37 AM EST 2 mg E ye Left ROPivacaine (Naropin) inj 1.5 mg 1.5 mg, Injection, PRN Other, Starting on Thu11/12/22 at 1052, Until Heidi 11/12/23 at 1051, For 365 days Given 09/16/2023 12:20 PM EDT 1.5 mg Eye Left Given 07/01/2023 11:51 AM EDT 1.5 mg E ye Left Given 04/20/2023 11:37 AM EST 1.5 mg E ye Left documented in this encounter Advance Directives Documents on File Type Date Recorded Patient Roller Expl anation MATIAS 05/12/2016 MATIAS BARONE ORDERS FOR LIFE-SUSTAINING TREATMENT Advance Directives and Living Will 05/09/2010 ADVANCE DIRECTIVE DURABLE HEALTH CARE POWER OF ASSET PROTECTION DETECTIVE & ADVANCE DIRECTIVE Care Teams Operating Room Coordinator Relationship Specialty Start Date End Date Levon Adam DO [address] [place] [address] PCP - General Family Medicine 11/12/22 documented as of this encounter
--- OUTSIDE RECORDS SUMMARY | 2023-09-25 02:36 | External Medical Summary | Summary of Care ---
Author Name Unknown Organization [facility] [address] [facility] [address] Phone [phone] Care Team Providers Care Department Sales Manager Name Role Phone Levon Adam Primary Care Provider Reason for Visit * Reason Comments Follow Up Encounter Details Date Type Department Care Team (Late st Contact Info) Description 09/16/2023 11:45 AM EDT Office Visit Ophthalmology, [facility] [address] [place] [address] Arnie Palumbo DO [address] [place] [address] Branch retinal vein occlusion of right eye, [...] mellitus with hemoglobin A1c goal of 7.0%-8.0% ([facility]) USE UP TO 6 TIMES A DAY FOR CHECKING BLOOD SUGARS 200 Each 5 10/20/2016 Active ONETOUCH ULTRA BLUE STRPIndications: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 09/08/2023 Active Nystatin 790612 UNIT/GM External Cream 09/02/2023 Active Nystatin 959714 UNIT/GM External Powder (Nystop) 09/02/2023 Active Loperamide [...] term ACTIVE CASE MANAGEMENT Isa Reed RN [phone] 09/12/2008 12/31/2009 Left internal carotid stenosis 40-50% [...] - 09/16/2023 11:45 AM EDT [facility] [place] Nursing notes reviewed. [...] and temporal pallor, no edema/NVD macula: +fluid, research recruiter, central atrophy vessels: +superior brvo, ischemic vessels, +pre retinal heme--improved periphery: PRP, +research recruiter, no RT/RD Dilated fundus exam OS: vitreous: clear optic nerve: 0.45, no edema/pallor/NVD macula: drusen, trace research recruiter vessels: wnl periphery: trace research recruiter, no RT/RD OCT Interpretation: OD: resolved cme w/ rpe disruption, incomplete PVD - improved 209m prior mixed, prior improved, prior worse, prior improved, prior worse 132um, prior worse 210um, prior improved 108um, prior [id number], prior worse, prior improved, prior worse OS: [...] Arnie Palumbo DO Eylea 2mg lot # [id number] Exp. Date: 07/2024 * Elzbieta Vail LPN [...] AM EDT Office [facility] [address] [facility] [place] [phone] Farideh Marin DO [address] [facility] [place] [address] Scheduled Orders Name Type Priority Associated Diagnoses Orde r Schedule RETINA SCAN DIAGNOSTIC IMAGE, POSTERIOR Procedures Routine Branch retinal vein occlusion of right eye, unspecified complication status Ordered: 09/16/2023 Scheduled Procedures Name Priority Associated Diagnoses Date/Ti tx COLONOSCOPY FLEXIBLE PROXIMAL DIAGNOSTIC Recall History of [...] Documents on File Type Date Recorded Patient Recycling Specialist Expl anation MATIAS 05/12/2016 MATIAS BARONE ORDERS FOR LIFE-SUSTAINING TREATMENT Advance Directives and Living Will 05/09/2010 ADVANCE DIRECTIVE DURABLE HEALTH CARE POWER OF MECHANICAL DRAFTER & ADVANCE DIRECTIVE Care Teams Department Sales Manager Relationship Specialty Start Date End Date Levon Adam DO [address] [place] [address] PCP - General Family Medicine 11/12/22 documented as of this encounter
--- OUTSIDE RECORDS SUMMARY | 2023-09-25 02:36 | External Medical Summary | Summary of Care ---
Author Name Unknown Organization [facility] [address] [address] Phone [phone] Care Team Providers Care Truck Farmer Name Role Phone Levon Adam Primary Care Provider Reason for Visit * Reason Comments Follow Up Encounter Details Date Type Department Care Team (Late st Contact Info) Description 09/16/2023 11:45 AM EDT Office Visit Ophthalmology, [facility] [address] [place] [address] Arnie Palumbo DO [address] [place] [address] Branch retinal vein occlusion of right eye, [...] hemoglobin A1c goal of 7.0%-8.0% ([facility]) USE UP TO 6 TIMES A DAY FOR CHECKING BLOOD SUGARS 200 Each 5 10/20/2016 Active ONETOUCH ULTRA BLUE STRPIndications: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 09/08/2023 Active Nystatin 185369 UNIT/GM External Cream 09/02/2023 Active Nystatin 073581 UNIT/GM External Powder (Nystop) 09/02/2023 Active Loperamide [...] term ACTIVE CASE MANAGEMENT Isa Reed RN [phone] 09/12/2008 12/31/2009 Left internal carotid stenosis 40-50% [...] - 09/16/2023 11:45 AM EDT [facility] [place] Nursing notes reviewed. [...] and temporal pallor, no edema/NVD macula: +fluid, mold capper helper, central atrophy vessels: +superior brvo, ischemic vessels, +pre retinal heme--improved periphery: PRP, +mold capper helper, no RT/RD Dilated fundus exam OS: vitreous: clear optic nerve: 0.45, no edema/pallor/NVD macula: drusen, trace mold capper helper vessels: wnl periphery: trace mold capper helper, no RT/RD OCT Interpretation: OD: resolved cme w/ rpe disruption, incomplete PVD - improved 209m prior mixed, prior improved, prior worse, prior improved, prior worse 132um, prior worse 210um, prior improved 108um, prior [id number], prior worse, prior improved, prior worse OS: [...] Arnie Palumbo DO Eylea 2mg lot # [id number] Exp. Date: 07/2024 * Elzbieta Vail LPN [...] AM EDT Office Visit [facility] [address] [place] [phone] Farideh Marin DO [address] [facility] [place] [address] Scheduled Orders Name Type Priority Associated Diagnoses Orde r Schedule RETINA SCAN DIAGNOSTIC IMAGE, POSTERIOR Procedures Routine Branch retinal vein occlusion of right eye, unspecified complication status Ordered: 09/16/2023 Scheduled Procedures Name Priority Associated Diagnoses Date/Ti va COLONOSCOPY FLEXIBLE PROXIMAL DIAGNOSTIC Recall History of [...] Documents on File Type Date Recorded Patient Sales Ambassador Expl anation MATIAS 05/12/2016 MATIAS BARONE ORDERS FOR LIFE-SUSTAINING TREATMENT Advance Directives and Living Will 05/09/2010 ADVANCE DIRECTIVE DURABLE HEALTH CARE POWER OF YACHT RIGGER & ADVANCE DIRECTIVE Care Teams Truck Farmer Relationship Specialty Start Date End Date Levon Adam DO [address] [place] [address] PCP - General Family Medicine 11/12/22 documented as of this encounter
[2023-09-25 09:02] LABS: Basophils # (auto) 0.05 K/uL (0.00-0.20); Eosinophils # (auto) 0.16 K/uL (0.00-0.50); Eosinophils % (auto) 3.3 %; Immature Granulocytes # (auto) 0.02 K/uL (0.01-0.20); Immature Granulocytes % (auto) 0.4 %; Lymphocytes # (auto) 1.05 K/uL (1.20-3.40); Lymphocytes % (auto) 21.7 %; Mean Corpuscular Hgb Conc 32.3 g/dL (32.0-36.0); Mean Corpuscular Volume 89.9 fL (80.0-100.0); Mean Platelet Volume 10.4 fL (9.4-12.4); Monocytes # (auto) 0.62 K/uL (0.11-0.59); Monocytes % (auto) 12.8 %; Neutrophils # (auto) 2.94 K/uL (1.40-6.50); Neutrophils % (auto) 60.8 %; Platelet Count 214 K/uL (130-400); RDW Coefficient of Variation 13.4 % (11.5-14.5); RDW Standard Deviation 44.1 fL (36.4-46.3); Red Blood Count 3.45 M/uL (4.20-5.40); White Blood Count 4.84 K/ul (4.8-10.8)
[2023-09-25 09:04] LABS: Albumin Globulin Ratio 1.3 (0.9-2); Albumin Level 3.6 gm/dl (3.4-5.0); BUN Creatinine Ratio 30.8 (10-20); Bilirubin,Total 0.5 mg/dl (0.2-1.0); Calcium 8.6 mg/dl (8.6-10.3); Creatinine Clr Calc Pharmacy 36.9 ml/min; Est GFR (African American) 50.8 ml/min; Est GFR (Non-African American) 43.9 ml/min; Globulin 2.7 gm/dl (2.5-4.0); Magnesium 2.3 mg/dl (1.7-2.4); Potassium 3.9 mmol/L (3.5-5.1); Total Protein 6.3 gm/dl (6.0-8.3)
[2023-09-25 09:11] LABS: BUN Creatinine Ratio 31.7 (10-20); Calcium 8.6 mg/dl (8.6-10.3); Creatinine Clr Calc Pharmacy 36.9 ml/min; Est GFR (African American) 50.8 ml/min; Est GFR (Non-African American) 43.9 ml/min; Potassium 3.9 mmol/L (3.5-5.1)
[2023-09-25 09:35] LABS: INR 1.1 (0.9-1.1); Prothrombin Time 11.4 Seconds (9.0-12.0)
[2023-09-25] MEDS: TIMOLOL MALEATE 0.5% OP SOLN 5 ML BTL OP SCH (10:00)
[2023-09-25] MEDS: CITALOPRAM 20 MG TAB PO SCH (10:00)
[2023-09-25] MEDS: PANTOprazole 40 MG TAB PO SCH (10:01)
[2023-09-25] MEDS: ASPIRIN 81 MG ECTAB PO SCH (10:01)
[2023-09-25] MEDS: OXYBUTYNIN CHLORIDE XL 5 MG TABCR PO SCH (10:01)
--- NOTE | 2023-09-25 12:17 | Hospitalist Progress Note ---
Date of Service September 25, 2023 Assessment & Plan (1) YAKOV (acute kidney injury): Plan: Now resolved following IV rehydration -Most likely prerenal due to dehydration from diarrhea Will resume lisinopril and spironolactone -Avoid nephrotoxic's (2) Diarrhea: Plan: Patient has been having greater than 4 episodes of nonbloody diarrhea over the past 3 weeks -Etiology is uncertain, CT abdomen and pelvis showed evidence of diffuse pancolitis, this could be infectious or inflammatory. Reportedly had a UTI approximately 3 weeks ago and was treated with a course of antibiotics Patient has a previous history of C. difficile, fortunately she is C. difficile toxin gene negative today Lomotil as needed Fecal calprotectin -GI consulted, await recommendations (3) Sleep apnea: Plan: At bedtime CPAP ordered (4) History of CAD (coronary artery disease): Plan: Patient denies recent chest pain Continue aspirin, Brilinta, and statin (5) Hypermagnesemia: Plan: Now resolved (6) Hypertension: Plan: Currently stable Resume lisinopril and spironolactone (7) Diabetic nephropathy associated with type 2 diabetes mellitus: Plan: Monitor BSG ACHS, goal is [id number] Patient normally takes 5 units Lantus every morning, will hold basal insulin for now due to her YAKOV to prevent hypoglycemia Will start conservative regimen of CF 50 and CR 15 ACHS for now Adjust regimen as needed moving forward based on renal function and BSG Plan Continue to monitor in the hospital Await recommendations from GI Admission and Anticipated Discharge Date Admission Date: September 24, 2023 Subjective Patient seen and examined, still having episodes of diarrhea, 1 so far today. Review of Systems Review of Systems: All systems reviewed are negative, apart from the ones contained in the history. Physical Exam Physical Exam: The patient is awake, alert and oriented 3, well developed and well nourished, normocephalic and atraumatic, lying in bed and in no acute distress. HEENT--PERRL, EOMI, mucous membranes and oropharynx mildly dry Neck--supple. No JVD. No bruits. Thyroid normal, trachea midline, no adenopathy. Heart--normal S1 and S2. No murmurs, rubs or gallops. Lungs--clear bilaterally, no respiratory distress, no accessory muscle use. Abdomen--normal bowel sounds and soft. Extremities--no cyanosis or clubbing. No edema. Dermatologic--normal skin turgor, normal color, no abnormal lymph nodes, no rash. Neurologic--cranial nerves II through XII grossly intact. Rheumatologic--normal range of motion. Psychiatric--normal affect. Results & Data Results & Data Vital Signs (Past 12 Hours) Vital Signs Temp Pulse Pulse Resp BP Pulse Ox O2 Del Method 09/25/23 11:16 98.4 F 80 20 141/69 H 95 Room Air 09/25/23 09:00 88 09/25/23 07:35 97.7 F 71 20 126/72 96 Room Air 09/25/23 03:05 76 19 98 09/25/23 02:31 98.1 F 119/68 09/25/23 02:24 97.5 F L 80 18 95/54 L 96 CPAP O2 Flow Rate 09/25/23 11:16 09/25/23 09:00 09/25/23 07:35 09/25/23 03:05 2 09/25/23 02:31 09/25/23 02:24 PG Care Time/CCT Total # of Minutes Spent Total Time Spent with Patient: Total time spent is greater than 50% in coordination of care (as documented) at patient's floor/unit and/or counseling patient: Coding Level of Care Code 36349 SUB INP/OBS CARE 2/35MIN Diagnoses YAKOV (acute kidney injury) N17.9 Diarrhea R19.7 Sleep apnea G47.30 History of CAD (coronary artery disease) Z86.79 Hypermagnesemia E83.41 Primary hypertension I10 Hypertension type: primary hypertension Diabetic nephropathy associated with type 2 diabetes mellitus E11.21 Time Spent (min) 35 (6) Hypertension Hypertension type: primary hypertension Qualified Code(s): I10 - Essential (primary) hypertension
--- NOTE | 2023-09-25 12:57 | Gastrointestinal Consultation ---
<Statement entered by Tan June MD - 09/25/23 17:21> Patient seen and examined. Case discussed with [place]. She is distressed over her diarrhea. Explained that given her recent MD and current anticoagulation usage and the fact that she is hemodynamically stable with relatively stable Hgb would prefer to treat symptomatically with Immodium up to 4 mg qid prn, probiotic and lactose restricted diet and hopefully she can follow up with her private GI for more elective colonoscopy once she can be more safely taken off the anticoagulation. Explained to patient. IP GI Service will sign off. Please recall as needed. Date of Consultation September 25, 2023 Assessment & Plan (1) Diarrhea: Patient admitted with a few weeks of diarrhea and abdominal pain. she reports some abdominal pain and 8-[address] suggestive of mild pancolitis that may be inflammatory or infectious. stool biofire panel is unremarkable. c diff negative. her last colonoscopy was reportedly 12 years ago at [facility]. I dont have these records. she was to have a colonoscopy recently but could not get done due to brilinta. I will discuss this case further with MD, further recommendations to follow. History of Present Illness Reason for Consultation: pancolitis, negative biofire/cdiff. Requesting Physician: Jason Crowder PA-C Attending Physician: Amy Florez MD History of Present Illness Patient is a 77 year old female with history of CAD s/p STEMI in March 2023, HTN, DM II, Previous C. difficile infection, and ROMAN presenting from [facility] on 09/24/2023 due to approximately 3 weeks of ongoing diarrhea and abdominal pain. Reportedly had a UTI approximately 3 weeks ago and was treated with antibiotics at [facility]. she reports 8-10 bowel movements daily. no blood in stools or melena. She tells me that she does have some lower abdominal discomfort that is mild in nature. rest of GI ros unremarkable. stool studies for biofire and c diff were unremarkable. she had CT 09/23 showing Mild pancolitis. This favors an infectious or inflammatory process. No evidence for bowel obstruction. Bilateral nephrolithiasis. No ureteral stones. No hydronephrosis. she tells me her last colonoscopy was done about 12 years ago at [facility] but was unremarkable. I do not have these records. she tells me she was to have a repeat recently, but due to her MD in March and her brilinta, her procedure was cancelled. she never had this rescheduled. she does feel like since admission that her diarrhea and pain has improved somewhat. imodium is on her medlist but she has not taken this yet. Allergies Allergy/AdvReac Type Severity Reaction Status Date / Time latex Allergy Mild ON [facility] Verified 09/24/23 14:24 LIST-per patient- thinks rash niacin Allergy Unknown ON [facility] Verified 09/24/23 14:24 [facility] simvastatin Allergy Unknown ON Verified 09/24/23 14:24 [facility] LIST- unsure Home Medications Medication Instructions Recorded Confirmed Type glucose 4 gram chewable tablet 1 tab PO DAILY PRN HYPOGLYCEMIA 11/26/17 09/24/23 History tolterodine 2 mg tablet 2 mg PO BID 11/26/17 09/24/23 History acetaminophen 325 mg tablet 650 mg PO Q6H PRN Fever Or Pain 06/12/18 09/24/23 History (Tylenol) nystatin 100,000 unit/gram topical 1 applic topical BID PRN RASH IN 11/24/22 09/24/23 History cream ABD FOLDS NEEDED pen needle, diabetic, safety 30 #100 ea 01/12/23 09/08/23 History gauge x 1/3" (Novofine Autocover) methenamine hippurate 1 gram tablet 1 g PO Q12H #180 tabs 02/12/23 09/24/23 Rx spironolactone 25 mg tablet 25 mg PO BID #60 tabs 03/20/23 09/24/23 Rx magnesium citrate 150 ml PO DAILY PRN No BM x 2 days 03/26/23 09/24/23 Rx #296 mL metoprolol tartrate 50 mg tablet 50 mg PO BID #60 tabs 04/08/23 09/24/23 Rx ticagrelor 90 mg tablet (Brilinta) 90 mg PO BID #60 tabs 04/08/23 09/24/23 Rx amoxicillin 500 mg capsule 2,000 mg PO DIRECTED PRN PRIOR 05/09/23 09/24/23 History TO DENTAL PROCEDURES citalopram 20 mg tablet 20 mg PO QAM 05/09/23 09/24/23 History fluorometholone 0.1 % eye 1 drp OPB DAILY 05/09/23 09/24/23 History drops,suspension hydrocortisone 1 % topical cream 1 applic topical BID PRN Rash 05/09/23 09/24/23 History lisinopril 40 mg tablet 40 mg PO QAM 05/09/23 09/24/23 History vit C 250 mg-vit E 90 mg-zinc 40 1 tab PO BID 05/09/23 09/24/23 History mg-copper 1 hs-evxpho-exqpoq capsule (PreserVision AREDS-2) aspirin 81 mg tablet,delayed 81 mg PO QAM #30 tabs 05/10/23 09/24/23 Rx release melatonin 10 mg capsule 10 mg PO HS sleep #30 caps 08/04/23 09/24/23 Rx insulin lispro 100 unit/mL 3 unit (0.03 mL) subcut TID #15 mL 08/13/23 09/24/23 Rx subcutaneous pen (Humalog KwikPen (U-100) Insulin) loperamide 2 mg capsule 2 mg PO QID PRN diarrhea #30 caps 08/27/23 09/24/23 Rx polyethylene glycol 3350 17 gram 17 g PO QAM PRN constipation #0 ea 08/27/23 09/24/23 Rx oral powder packet psyllium husk 3.4 gram/5.4 gram 1 tsp PO DAILY PRN constipation #0 08/27/23 09/24/23 Rx oral powder (Metamucil) grams gabapentin 100 mg capsule 100 mg PO TID #45 caps 08/28/23 09/24/23 Rx insulin glargine 100 unit/mL (3 5 unit (0.05 mL) subcut QAM #3 mL 08/28/23 09/24/23 Rx mL) subcutaneous pen (Lantus Solostar U-100 Insulin) timolol 0.5 % eye drops 1 drp OPB QAM #5 mL 08/31/23 09/24/23 Rx flash glucose sensor (FreeStyle 09/08/23 09/08/23 History Savanna 2 Sensor kit) lorazepam 0.5 mg tablet 0.5 mg PO HS anxiety #10 tabs 09/14/23 09/24/23 Rx Qc Natural Veggie 95% Powder See Rx Instructions .Route .COMPLEX 09/24/23 09/24/23 History atorvastatin 40 mg tablet 40 mg PO HS 09/24/23 09/24/23 History dulaglutide 4.5 mg/0.5 mL 4.5 mg subcut WK 09/24/23 09/24/23 History subcutaneous pen injector (Trulicity) isosorbide mononitrate 60 mg 60 mg PO QAM 09/24/23 09/24/23 History tablet,extended release 24 hr nystatin 100,000 unit/gram topical 1 applic topical BID PRN Rash 09/24/23 09/24/23 History powder pantoprazole 40 mg tablet,delayed 40 mg PO QAM 09/24/23 09/24/23 History release quetiapine 25 mg tablet 25 mg PO QAM 09/24/23 09/24/23 History Patient History Medical History UTI (urinary tract infection) YAKOV (acute kidney injury) STEMI (ST elevation myocardial infarction) History of recurrent UTI (urinary tract infection) Insomnia Per records Neuropathy per patient- hands and feet Hypertension Per records History of macular degeneration Chronic back pain Diabetes mellitus, type 2 IDDM Neurogenic claudication due to lumbar spinal stenosis History of nephrolithiasis Nasal bone fracture Cholecystitis, acute Surgical History History of appendectomy History of bilateral tubal ligation History of cataract surgery History of cholecystectomy History of colonoscopy History of cornea transplant Hx of total knee arthroplasty S/P epidural steroid injection Status post spinal surgery Family History Mother Breast cancer Aunt Colorectal cancer Diabetes Father Myocardial infarction Other No family history of adverse response to anesthesia No pertinent family history Denies family history of Ovarian cancer Prostate cancer Social History Smoking Status: Former smoker Tobacco Type: Cigarettes Age Quit Using Tobacco: 64; Cigarettes Per Day: 2 packs/day; Second Hand Exposure: No; Do You Dip or Chew Tobacco: No; Hx Alcohol Use: No Hx Substance Use: No Preferred Language: Czech Communication Ability: Effective Visual Impairment: No Limitations Hearing Ability: Normal 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 Rolling 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 Required: No Beliefs That Will Affect Care: None marital status: Current Living Situation: Personal Care Facility Current Living Situation Comment: [facility] current occupational status: retired current occupation: Retired How many Children do You have: 2 Feels Safe at Home: Yes Safety Concerns: Feels Safe At This Time Childhood Exposure to Second-Hand Smoke: No Diet: regular caffeine: No during the past year weight has: remained stable Dental Care, Regularly: Yes Physical Activity Frequency: Does not Exercise Seatbelt Use: sometimes Sunscreen Use: Yes Assistive Devices: CPAP, Oxygen - at Night and Walker Review of Systems Review of Systems: All systems reviewed & are unremarkable except as noted in HPI & below Physical Exam Constitutional: WD/WN, vitals as above Respiratory: normal respiratory effort, lungs clear to auscultation Cardiovascular: RRR, no murmur, no edema Gastrointestinal (Abdomen): mild mid abdominal tenderness to palpation, no guarding, soft. normal bowel sounds. Psychiatric: Orientation: alert and oriented x 3 Affect: euthymic affect Results & Data Vital Signs (Past 12 Hours) Vital Signs Temp Pulse Pulse Resp BP Pulse Ox O2 Del Method 09/25/23 11:16 98.4 F 80 20 141/69 H 95 Room Air 09/25/23 09:00 88 09/25/23 07:35 97.7 F 71 20 126/72 96 Room Air 09/25/23 03:05 76 19 98 09/25/23 02:31 98.1 F 119/68 09/25/23 02:24 97.5 F L 80 18 95/54 L 96 CPAP O2 Flow Rate 09/25/23 11:16 09/25/23 09:00 09/25/23 07:35 09/25/23 03:05 2 09/25/23 02:31 09/25/23 02:24 Coding Level of Care Code 35205 INT INP/OBS CARE 2/55MIN Diagnoses Diarrhea R19.7 Diarrhea type: unspecified type (1) Diarrhea Diarrhea type: unspecified type Qualified Code(s): R19.7 - Diarrhea, unspecified
[2023-09-25] MEDS: SODIUM CHLORIDE 0.9% 1,000 ML IV SCH (13:23)
[2023-09-25] MEDS: lisinopril 40 MG TAB PO SCH (13:24)
[2023-09-25] MEDS: cefTRIAXone SODIUM 1,000 MG/50 ML BAG IV SCH (13:24)
[2023-09-25] MEDS: SPIRONOLACTONE 25 MG TAB PO SCH (21:09)
[2023-09-25] MEDS: LOPERAMIDE HCL 2 MG CAP PO PRN (21:09)
[2023-09-26 06:29] LABS: Basophils # (auto) 0.04 K/uL (0.00-0.20); Basophils % (auto) 0.8 %; Eosinophils # (auto) 0.15 K/uL (0.00-0.50); Eosinophils % (auto) 3.2 %; Hematocrit (blood only) 30.1 % (37.0-47.0); Hemoglobin 9.7 g/dl (12.0-16.0); Immature Granulocytes # (auto) 0.02 K/uL (0.01-0.20); Immature Granulocytes % (auto) 0.4 %; Lymphocytes # (auto) 1.43 K/uL (1.20-3.40); Lymphocytes % (auto) 30.3 %; Mean Corpuscular Hemoglobin 28.9 pg (25.0-34.0); Mean Corpuscular Hgb Conc 32.2 g/dL (32.0-36.0); Mean Corpuscular Volume 89.6 fL (80.0-100.0); Mean Platelet Volume 10.1 fL (9.4-12.4); Monocytes # (auto) 0.61 K/uL (0.11-0.59); Monocytes % (auto) 12.9 %; Neutrophils # (auto) 2.47 K/uL (1.40-6.50); Neutrophils % (auto) 52.4 %; Platelet Count 193 K/uL (130-400); RDW Coefficient of Variation 13.3 % (11.5-14.5); Red Blood Count 3.36 M/uL (4.20-5.40); White Blood Count 4.72 K/ul (4.8-10.8)
[2023-09-26 06:41] LABS: INR 1.1 (0.9-1.1); Prothrombin Time 11.8 Seconds (9.0-12.0)
[2023-09-26 06:42] LABS: Albumin Globulin Ratio 1.4 (0.9-2); Albumin Level 3.4 gm/dl (3.4-5.0); Bilirubin,Total 0.4 mg/dl (0.2-1.0); Calcium 8.2 mg/dl (8.6-10.3); Creatinine Clr Calc Pharmacy 52.9 ml/min; Est GFR (African American) 78.2 ml/min; Est GFR (Non-African American) 67.5 ml/min; Globulin 2.5 gm/dl (2.5-4.0); Magnesium 1.8 mg/dl (1.7-2.4); Potassium 3.5 mmol/L (3.5-5.1); Total Protein 5.9 gm/dl (6.0-8.3)
[2023-09-26] MEDS ORDERED: LOPERAMIDE HCL 2 MG CAP PO PRN (07:31)
--- NOTE | 2023-09-26 11:11 | Discharge Summary ---
Date of Service September 26, 2023 Admission HPI Per Admitting Provider Stefany Arroyo is a 77yo female with history of CAD s/p STEMI in March 2023 with MAUREEN to LCx, HTN, DM II, Previous C. difficile infection, and ROMAN presenting from [facility] on 09/24/2023 due to due to approximately 3 weeks of ongoing diarrhea and abdominal pain. Reportedly had a UTI approximately 3 weeks ago and was treated with antibiotics at [facility]. She was noted to be mildly hypotensive on arrival at 100/46 but was otherwise stable. Labs were significant for creatinine of 2.16 (baseline is near 1.1), magnesium of 3.1, negative COVID 19 screening, and stool panel in process along with C. difficile testing. CT of the abdomen pelvis without contrast was obtained but yet to be read prior to admission. Prior to admission the patient was given 1 L NSS. Stefany was sitting in bed in no acute distress at the time of exam, she had just returned from her CT scan. She confirms that she has been having ongoing diarrhea for the past 3 weeks. States it can be up to 8-10 episodes a day, denies any blood in the stool. When asked she denies any recent abdominal pain. Denies recent fever, chills, chest pain, shortness of breath, cough, nausea/vomiting, urinary symptoms such as dysuria/hematuria/urinary frequency, lower extremity swelling, and recent trauma. I explained that she has an YAKOV likely due to dehydration, she states "now that you mention that, I have been urinating much less frequently over the past few days". She confirms that she is a DNR/DNI. n Principal Diagnosis delgado colitis, diarrhea Discharge Exam The patient is awake, alert and oriented 3, well developed and well nourished, normocephalic and atraumatic, lying in bed and in no acute distress. HEENT--PERRL, EOMI, mucous membranes and oropharynx mildly dry Neck--supple. No JVD. No bruits. Thyroid normal, trachea midline, no adenopathy. Heart--normal S1 and S2. No murmurs, rubs or gallops. Lungs--clear bilaterally, no respiratory distress, no accessory muscle use. Abdomen--normal bowel sounds and soft. Extremities--no cyanosis or clubbing. No edema. Dermatologic--normal skin turgor, normal color, no abnormal lymph nodes, no rash. Neurologic--cranial nerves II through XII grossly intact. Rheumatologic--normal range of motion. Psychiatric--normal affect. Discharge Data Allergies Allergy/AdvReac Type Severity Reaction Status Date / Time latex Allergy Mild ON [facility] Verified 09/24/23 14:24 LIST-per patient- thinks rash niacin Allergy Unknown ON [facility] Verified 09/24/23 14:24 [From [facility] LIST Extended-Release] simvastatin Allergy Unknown ON Verified 09/24/23 14:24 [facility] LIST- unsure Consultations 09/24/23 11:03 ED Decision to Admit Stat 09/24/23 13:29 Consult Gastroenterology Routine Ordered Studies 09/24/23 11:00 CT abd pelvis wo con Stat Hospital Course (1) YAKOV (acute kidney injury): Now resolved following IV rehydration -Most likely prerenal due to dehydration from diarrhea Will resume lisinopril and spironolactone -Avoid nephrotoxic's (2) Diarrhea: Patient has been having greater than 4 episodes of nonbloody diarrhea over the past 3 weeks -Etiology is uncertain, CT abdomen and pelvis showed evidence of diffuse pancolitis, this could be infectious or inflammatory. Reportedly had a UTI approximately 3 weeks ago and was treated with a course of antibiotics Patient has a previous history of C. difficile, fortunately she is C. difficile toxin gene negative today Lomotil as needed Fecal calprotectin -GI consulted, They recommend no colonoscopy on account of recent stent needing Brilinta -Outpatient follow-up with her plate glass installer helper -As needed Lomotil up to 4 mg and also probiotic (3) Sleep apnea: At bedtime CPAP ordered (4) History of CAD (coronary artery disease): Patient denies recent chest pain Continue aspirin, Brilinta, and statin (5) Hypermagnesemia: Now resolved (6) Hypertension: Currently stable Resume lisinopril and spironolactone (7) Diabetic nephropathy associated with type 2 diabetes mellitus: Monitor BSG ACHS, goal is [id number] Patient normally takes 5 units Lantus every morning, will hold basal insulin for now due to her YAKOV to prevent hypoglycemia Will start conservative regimen of CF 50 and CR 15 ACHS for now Adjust regimen as needed moving forward based on renal function and BSG (8) Acute UTI: Was on IV ceftriaxone for a few days Discharge home on p.o. cephalexin for 3 more days Plan Discharge home Follow-up with regular GI doctor Total Time Total Time Spent Total Time Spent (In Minutes): 35 Discharge Plan Discharge Items Patient Disposition: Home - Self-Care Reason For Visit: DIARRHEA, YAKOV, DEHYDRATION, ELEVATED MAG Discharge Diagnosis: Diarrhea, pancolitis Condition on Discharge: Fair Activity: Resume your previous activity Non-emergency contact: Primary Care Provider and Customs Manager Call non-emergency contact if: you have any medication questions Follow-up/Referrals: Levon Adam DO [Primary Care Provider] - 10/05/23 9:20 am Diet: Regular Addtl Attending Provider Instructions: Please make appointment to follow-up with a plate glass installer helper Pending Studies at Discharge: No Stand-Alone Forms: My [employer], Smoking Cessation Medications and DC Order Prescriptions: New loperamide 2 mg Capsule 4 mg PO Q4H PRN (Reason: loose stool) Qty: 30 0RF Align 10.5 mg (10 million cell) tablet,chewable 10.5 mg PO DAILY Qty: 20 0RF cephalexin 250 mg capsule 250 mg PO BID 3 Days Qty: 6 0RF Continued methenamine hippurate 1 gram tablet 1 g PO Q12H Qty: 180 1RF Rx Instructions: 0730 & 2100 insulin lispro [Humalog KwikPen Insulin] 100 unit/mL insulin pen 3 unit SUBCUT TID MDD 20 units Qty: 15 2RF Rx Instructions: TAKES 0800, 1200, & 1700--3 UNIT BASE DOSE WITH PREMEAL BSG IS GREATER THAN 150, FOR EVERY 50 ABOVE BSG OF 200 ADD ADDITIONAL 3 UNITS. timolol 0.5 % drops 1 drp OPB QAM Qty: 5 2RF lorazepam 0.5 mg tablet 0.5 mg PO HS Qty: 10 0RF metoprolol tartrate 50 mg tablet 50 mg PO BID Qty: 60 11RF Rx Instructions: 0730 & 2100 Brilinta 90 mg tablet 90 mg PO BID Qty: 60 11RF Rx Instructions: ON EXT MED HX, NOT ON MED LIST FROM [facility]. nystatin 100,000 unit/gram cream 1 applic topical BID PRN (Reason: RASH IN ABD FOLDS NEEDED) (DME) Novofine Autocover 30 gauge x 1/3" needle See Rx Instructions .ROUTE .MEDSUPPLY Qty: 100 Rx Instructions: As directed magnesium citrate Solution 150 ml PO DAILY PRN (Reason: No BM x 2 days) Qty: 296 2RF Rx Instructions: [place] flavor melatonin 10 mg capsule 10 mg PO HS Qty: 30 11RF (DME) FreeStyle Savanna 2 Sensor Kit See Rx Instructions .ROUTE Rx Instructions: As directed tolterodine 2 mg Tablet 2 mg PO BID Rx Instructions: 729 & 2099 glucose 4 gram Tablet,Chewable 1 tab PO DAILY PRN (Reason: HYPOGLYCEMIA) acetaminophen [Tylenol] 325 mg Tablet 650 mg PO Q6H MDD MAX 3 GRAMS APAP/24 HOURS. PRN (Reason: Fever Or Pain) spironolactone 25 mg Tablet 25 mg PO BID Qty: 60 0RF Hold Instructions: Resume on 09/10/23. until followup with PCP Rx Instructions: 729 & 2099 isosorbide mononitrate 60 mg tablet extended release 24 hr 60 mg PO QAM nystatin 100,000 unit/gram powder 1 applic TOPICAL BID PRN (Reason: Rash) Qc Natural Veggie 95% Powder See Rx Instructions .ROUTE .COMPLEX Rx Instructions: Mix 1 teaspoon w/ Miralax daily in 8 ounces of liquid as needed for constipation quetiapine 25 mg tablet 25 mg PO QAM atorvastatin 40 mg tablet 40 mg PO HS pantoprazole 40 mg tablet,delayed release (DR/EC) 40 mg PO QAM Trulicity 4.5 mg/0.5 mL pen injector 4.5 mg subcut WK Rx Instructions: Thursday mornings hydrocortisone 1 % Cream 1 applic TOPICAL BID PRN (Reason: Rash) PreserVision AREDS-2 250-90-40-1 mg Capsule 1 tab PO BID Rx Instructions: 729 & 2099 lisinopril 40 mg tablet 40 mg PO QAM Hold Instructions: Resume on 09/10/23. until followup with PCP citalopram 20 mg tablet 20 mg PO QAM Rx Instructions: ON EXT MED LIST, NOT ON [facility] MED LIST fluorometholone 0.1 % drops,suspension 1 drp OPB DAILY aspirin 81 mg Tablet,Delayed Release (Dr/Ec) 81 mg PO QAM Qty: 30 0RF polyethylene glycol 3350 17 gram Powder In Packet 17 g PO QAM PRN (Reason: constipation) Qty: 0 0RF Metamucil 3.4 gram/5.4 gram Powder 1 tsp PO DAILY PRN (Reason: constipation) Qty: 0 0RF Rx Instructions: mix into at least 4 oz water or juice before administering insulin glargine [Lantus Solostar U-100 Insulin] 100 unit/mL (3 mL) insulin pen 5 unit SUBCUT QAM Qty: 3 0RF gabapentin 100 mg capsule 100 mg PO TID Qty: 45 0RF Discontinued amoxicillin 500 mg Capsule 2,000 mg PO DIRECTED PRN (Reason: PRIOR TO DENTAL PROCEDURES) loperamide 2 mg capsule 2 mg PO QID PRN (Reason: diarrhea) Qty: 30 1RF Rx Instructions: Take PO after BM, do not take more than 4 capsules in 24 hours. Discharge Orders: Discharge Order (Routine); Ordered 09/26/23 Ordered By: Amy Florez Admission Data Admit Date/Time: 09/24/23 11:53 Attending Provider: Amy Florez Admit Provider: Benito Plaza Primary Care Provider: Levon Adam Other Providers: Benito Plaza; Alissa Nathan Other Interventions: Discharge Summary Assessment (RN) Last Done: 09/26/23 10:30 Coding Level of Care Code 23298 INP/OBS DISCH >30 MIN Diagnoses YAKOV (acute kidney injury) N17.9 Diarrhea R19.7 Sleep apnea G47.30 History of CAD (coronary artery disease) Z86.79 Hypermagnesemia E83.41 Primary hypertension I10 Hypertension type: primary hypertension Diabetic nephropathy associated with type 2 diabetes mellitus E11.21 Acute UTI N39.0 Time Spent (min) 35
== END 2023-09-26 11:16 | disposition home or self-care (01) | DRG 683 ==
LOC: ED 09:48 → OBSVTOIN 11:53 → SUATTDRO 11:53 → INTOOBSV 11:53 → EDINP 11:53 → 2W 18:06
DX: H35.30 Unspecified macular degeneration; Z79.899 Other long term (current) drug therapy; Z79.02 Long term (current) use of antithrombotics/antiplatelets; Z82.49 Family history of ischemic heart disease and other diseases of the circulatory system; G47.33 Obstructive sleep apnea (adult) (pediatric); I10 Essential (primary) hypertension; Z79.85 Long-term (current) use of injectable non-insulin antidiabetic drugs; N39.0 Urinary tract infection, site not specified; Z83.3 Family history of diabetes mellitus; A09 Infectious gastroenteritis and colitis, unspecified; Z91.040 Latex allergy status; Z86.19 Personal history of other infectious and parasitic diseases; E83.41 Hypermagnesemia; Z79.4 Long term (current) use of insulin; E11.21 Type 2 diabetes mellitus with diabetic nephropathy; G47.00 Insomnia, unspecified; I25.10 Atherosclerotic heart disease of native coronary artery without angina pectoris; K52.89 Other specified noninfective gastroenteritis and colitis; Z88.8 Allergy status to other drugs, medicaments and biological substances; E86.0 Dehydration; Z66 Do not resuscitate; N17.9 Acute kidney failure, unspecified; I25.2 Old myocardial infarction; Z79.82 Long term (current) use of aspirin; E11.40 Type 2 diabetes mellitus with diabetic neuropathy, unspecified; Z87.440 Personal history of urinary (tract) infections

== ENCOUNTER 2023-10-16 19:22 | Inpatient (IN) ==
[2023-10-16 19:55] LABS: Basophils # (auto) 0.03 K/uL (0.00-0.20); Basophils % (auto) 0.6 %; Eosinophils # (auto) 0.03 K/uL (0.00-0.50); Eosinophils % (auto) 0.6 %; Hematocrit (blood only) 29.7 % (37.0-47.0); Hemoglobin 9.6 g/dl (12.0-16.0); Immature Granulocytes # (auto) 0.02 K/uL (0.01-0.20); Immature Granulocytes % (auto) 0.4 %; Lymphocytes # (auto) 1.16 K/uL (1.20-3.40); Lymphocytes % (auto) 24.9 %; Mean Corpuscular Hemoglobin 28.4 pg (25.0-34.0); Mean Corpuscular Hgb Conc 32.3 g/dL (32.0-36.0); Mean Corpuscular Volume 87.9 fL (80.0-100.0); Mean Platelet Volume 10.1 fL (9.4-12.4); Monocytes # (auto) 0.86 K/uL (0.11-0.59); Monocytes % (auto) 18.5 %; Neutrophils # (auto) 2.56 K/uL (1.40-6.50); Platelet Count 235 K/uL (130-400); RDW Coefficient of Variation 14.1 % (11.5-14.5); RDW Standard Deviation 44.7 fL (36.4-46.3); Red Blood Count 3.38 M/uL (4.20-5.40); White Blood Count 4.66 K/ul (4.8-10.8)
[2023-10-16 20:09] LABS: Albumin Globulin Ratio 1.6 (0.9-2); Albumin Level 4.1 gm/dl (3.4-5.0); BUN Creatinine Ratio 28.4 (10-20); Bilirubin,Total 0.6 mg/dl (0.2-1.0); Calcium 9.5 mg/dl (8.6-10.3); Creatinine Clr Calc Pharmacy 31.1 ml/min; Est GFR (African American) 41.5 ml/min; Est GFR (Non-African American) 35.8 ml/min; Globulin 2.6 gm/dl (2.5-4.0); Potassium 3.7 mmol/L (3.5-5.1); Total Protein 6.7 gm/dl (6.0-8.3)
--- NOTE | 2023-10-16 20:34 | Emergency Department Note ---
Impression & Plan Abdominal pain, Diarrhea, YAKOV (acute kidney injury), Anemia ED Provider Note ED Provider Note NAME: SHENG SINGH AGE:78 SEX: Female : 1945 ARRIVES VIA: EMS INFORMANT: Patient ED PROVIDER(s): Heavenly Jean Baptiste DO CHIEF COMPLAINT: Abdominal pain, diarrhea HPI: This is a 78-year-old female who presents to the ER due to concern for worsening abdominal pain and diarrhea. Patient states she has had symptoms for the last 2 months. She was previously seen and evaluated and previously admitted here. She states no specific cause was ever found. She states she did undergo blood work and a CAT scan. She states she was told by GI they would like to do a colonoscopy but they cannot do it because of the risks to her heart. Patient states she had a heart attack back in March. She states no fevers or chills. No recent change in medication or change in diet. No recent travel. She states no black or bloody stools. She states she does have left lower quadrant abdominal pain however the pain seems to move around and does wax and wane. No radiation into the back. PAST MEDICAL HISTORY:See Below PAST SURGICAL HISTORY:See Below FAMILY HISTORY:See Below SOCIAL HISTORY:See Below HOME MEDICATIONS:See Below ALLERGIES:See Below VITALS:See Below PHYSICAL EXAMINATION: GENERAL: alert, well appearing, well nourished, no distress, non-toxic EYE EXAM: normal conjunctiva, PERRL and EOM's grossly intact OROPHARYNX: no exudate, no erythema, lips, buccal mucosa, and tongue normal and mucous membranes are moist NECK: supple, no nuchal rigidity, no adenopathy, non-tender LUNGS: Clear to auscultation. Normal chest wall mechanics, no w/r/r HEART: no murmurs, S1 normal and S2 normal ABDOMEN: abdomen soft, non-tender, normo-active bowel sounds, no masses, no rebound or guarding. SKIN: no rashes, petechiae, orbruising UPPER EXTREMITIES: upper extremities are grossly normal. FROM, nml pulses b/l. LOWER EXTREMITIES: No pitting edema. FROM, nml pulses b/l. NEURO EXAM: Normal sensorium, cranial nerves II-XII grossly intact, normal speech, no facial droop,nogross weakness of arms, no gross weakness of legs. Gross sensation intact. No ataxia. Vital Signs: reviewed and remarkable Differential Diagnosis: Colitis, SBO, mesenteric ischemia, medication ADR, viral syndrome, foodborne illness, IBS, IBD, as well as others were considered MEDICAL DECISION MAKING: This is a 78-year-old female who presents to the emergency department due to concern for persistent abdominal pain and diarrhea. Patient with recent evaluation for similar symptoms. As they have not improved she continues to feel weak and is concerned for dehydration. She was afebrile and vital signs stable on arrival. Labs drawn and sent, IV established, patient monitored on telemetry. She was started on IV fluids and given IV Tylenol initially for abdominal pain and cramping. She was sent for CT of the abdomen and pelvis. Patient noted to have mild YAKOV on labs and newly elevated lipase. Anemia also noted however that appears stable compared to prior. Mild hyperglycemia noted, no evidence of DKA. CT revealed persistent inflammatory changes and diarrheal illness although based on reading compared to prior does appear improved. Stool culture and C. difficile ordered again, these had been negative during prior admission. Due to concern for persistent weakness and need for continued hydration and unclear etiology of persistent symptoms, case discussed with hospitalist team for additional evaluation and management. Consultation(s): 2345: Discussed with Dr. Lopez, [place] hospitalist team, for additional evaluation and mgmt. ER Treatment Provided: See below Diagnostics Interpreted By Me: -Cardiac Monitoring: An order was placed for continuous cardiac monitoring. The monitor shows a rate of 80 with normal sinus rhythm. -Laboratory studies: As stated above and show below. -Imaging studies: CT a/p -no obvious SBO, no prior for Triage Nursing Note Reviewed Prior/Outside Records Reviewed Past Med/Surg History Problem List (Updated 10/17/23 @ 21:47 by Heavenly Jean Baptiste DO) Anemia (Acute) YAKOV (acute kidney injury) (Acute) Weight loss, non-intentional Elevated lipase Diarrhea (Acute) Abdominal pain (Acute) Acute UTI (Acute) Acute dehydration (Acute) Diarrhea (Acute) Anemia (Acute) YAKOV (acute kidney injury) (Acute) Hypermagnesemia Gait instability (Acute) Imbalance Urinary incontinence History of CAD (coronary artery disease) (Acute) Anemia (Acute) Chest pain (Acute) Chest pain Diabetic retinopathy associated with type 2 diabetes mellitus Left nephrolithiasis Overactive bladder GERD (gastroesophageal reflux disease) hx Sleep apnea cpap nightly with 3lpm of oygen Depression Per records Glaucoma CAD (coronary artery disease) Occlusion of distal portion of left circumflex coronary artery Proteinuria Chronic kidney disease, stage 3a Vitamin D deficiency Diabetic nephropathy associated with type 2 diabetes mellitus Enteritis, inflammatory disorder of small intestine (Chronic Unknown) Fatigue (Acute) Generalized weakness (Acute) Knee pain (Acute) Radiculopathy, lumbar region Spinal stenosis of lumbar region Hypertension DVT prophylaxis Toe ulcer Pressure ulcer, stage III (Acute) Diabetes mellitus type 2 in obese Dyslipidemia Statin myopathy Peripheral neuropathy Hyponatremia Medical History UTI (urinary tract infection) YAKOV (acute kidney injury) STEMI (ST elevation myocardial infarction) History of recurrent UTI (urinary tract infection) Insomnia Per records Neuropathy per patient- hands and feet Hypertension Per records History of macular degeneration Chronic back pain Diabetes mellitus, type 2 IDDM Neurogenic claudication due to lumbar spinal stenosis History of nephrolithiasis Nasal bone fracture Cholecystitis, acute Surgical History Status post spinal surgery History of bilateral tubal ligation Hx of total knee arthroplasty bilateral S/P epidural steroid injection History of cholecystectomy History of colonoscopy History of cornea transplant bilateral History of cataract surgery bilateral History of appendectomy Family History Mother Breast cancer Aunt Colorectal cancer Diabetes Father Myocardial infarction Other No family history of adverse response to anesthesia No pertinent family history Denies family history of Ovarian cancer Prostate cancer Social History Smoking Status: Former smoker Tobacco Type: Cigarettes Age Quit Using Tobacco: 64; Cigarettes Per Day: 2 packs/day; Second Hand Exposure: No; Do You Dip or Chew Tobacco: No; Tobacco Cessation Education Requested by Patient: No Hx Alcohol Use: No Hx Substance Use: No Preferred Language: Italian Communication Ability: Effective Visual Impairment: No Limitations Hearing Ability: Normal 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 Beliefs That Will Affect Care: None marital status: Current Living Situation: Personal Care Facility Current Living Situation Comment: [facility] current occupational status: retired current occupation: Retired How many Children do You have: 2 Other Information That Helps Us Care for You: No Feels Safe at Home: Yes Safety Concerns: Feels Safe At This Time Childhood Exposure to Second-Hand Smoke: No Diet: regular caffeine: No during the past year weight has: remained stable Dental Care, Regularly: Yes Physical Activity Frequency: Does not Exercise Seatbelt Use: sometimes Sunscreen Use: Yes Assistive Devices: Denture - Upper, Glasses, Hospital Bed, Oxygen - at Night and Walker Allergies Allergies Allergy/AdvReac Type Severity Reaction Status Date / Time latex Allergy Mild ON [facility] Verified 10/16/23 23:34 LIST-per patient- thinks rash niacin Allergy Unknown ON [facility] Verified 10/16/23 23:34 [From [facility] MED LIST Extended-Release] simvastatin Allergy Unknown ON Verified 10/16/23 23:34 [facility] LIST- unsure Home Meds Home Medications Medication Instructions Recorded Confirmed glucose 4 gram chewable tablet 1 tab PO DAILY PRN HYPOGLYCEMIA 11/26/17 10/16/23 tolterodine 2 mg tablet 2 mg PO BID 11/26/17 10/16/23 acetaminophen 325 mg tablet 650 mg PO Q6H PRN Fever Or Pain 06/12/18 10/16/23 (Tylenol) nystatin 100,000 unit/gram topical 1 applic topical BID PRN RASH IN 11/24/22 10/16/23 cream ABD FOLDS NEEDED pen needle, diabetic, safety 30 #100 ea 01/12/23 09/29/23 gauge x 1/3" (Novofine Autocover) citalopram 20 mg tablet 20 mg PO QAM 05/09/23 10/16/23 fluorometholone 0.1 % eye 1 drp OPB DAILY 05/09/23 10/16/23 drops,suspension hydrocortisone 1 % topical cream 1 applic topical BID PRN Rash 05/09/23 10/16/23 lisinopril 40 mg tablet 40 mg PO QAM 05/09/23 10/16/23 vit C 250 mg-vit E 90 mg-zinc 40 1 tab PO BID 05/09/23 10/16/23 mg-copper 1 el-hinvyw-femmwe capsule (PreserVision AREDS-2) flash glucose sensor (FreeStyle 09/08/23 09/29/23 [place] 2 Sensor kit) Qc Natural Veggie 95% Powder See Rx Instructions .Route .COMPLEX 09/24/23 10/16/23 atorvastatin 40 mg tablet 40 mg PO HS 09/24/23 10/16/23 dulaglutide 4.5 mg/0.5 mL 4.5 mg subcut WK 09/24/23 10/16/23 subcutaneous pen injector (Trulicity) isosorbide mononitrate 60 mg 60 mg PO QAM 09/24/23 10/16/23 tablet,extended release 24 hr nystatin 100,000 unit/gram topical 1 applic topical BID PRN Rash 09/24/23 10/16/23 powder pantoprazole 40 mg tablet,delayed 40 mg PO QAM 09/24/23 10/16/23 release quetiapine 25 mg tablet 25 mg PO QAM 09/24/23 10/16/23 acetaminophen 325 mg tablet 650 mg PO HS 09/29/23 10/16/23 amoxicillin 500 mg capsule 2,000 mg PO DIRECTED PRN 1 HOUR 09/29/23 10/16/23 PRIOR TO DENTAL VISIT insulin lispro 100 unit/mL 3 unit subcut TIDM 10/16/23 10/16/23 subcutaneous pen (Humalog KwikPen (U-100) Insulin) Previous Rx's Medication Instructions Recorded methenamine hippurate 1 gram tablet 1 g PO Q12H #180 tabs 02/12/23 spironolactone 25 mg tablet 25 mg PO BID #60 tabs 03/20/23 metoprolol tartrate 50 mg tablet 50 mg PO BID #60 tabs 04/08/23 ticagrelor 90 mg tablet (Brilinta) 90 mg PO BID #60 tabs 04/08/23 aspirin 81 mg tablet,delayed 81 mg PO QAM #30 tabs 05/10/23 release melatonin 10 mg capsule 10 mg PO HS sleep #30 caps 08/04/23 polyethylene glycol 3350 17 gram 17 g PO QAM PRN constipation #0 ea 08/27/23 oral powder packet gabapentin 100 mg capsule 100 mg PO TID #45 caps 08/28/23 insulin glargine 100 unit/mL (3 5 unit (0.05 mL) subcut QAM #3 mL 08/28/23 mL) subcutaneous pen (Lantus Solostar U-100 Insulin) timolol 0.5 % eye drops 1 drp OPB QAM #5 mL 08/31/23 Bifidobacterium infantis 10.5 mg 10.5 mg PO DAILY #20 tabs 09/26/23 (10 million cell) chewable tablet (Align) loperamide 2 mg capsule 4 mg (2 x 2 mg) PO Q4H PRN loose 09/26/23 stool #30 caps lorazepam 0.5 mg tablet 0.5 mg PO HS anxiety #30 tabs 09/29/23 Lift chair / recliner #1 ea 10/05/23 Results & Data (ED) Vital Signs Vital Signs - 24 hr 10/16/23 22:00 10/16/23 23:00 10/16/23 23:00 Pulse Rate from SpO2 Sensor 78 75 Blood Pressure 112/47 L 127/61 127/61 Blood Pressure Mean 86 102 102 Pulse Oximetry 95 97 Oxygen Delivery Method Room Air Room Air Laboratory Data 10/16/23 19:30 10/16/23 19:30 Lab Results 10/16/23 Range/Units 19:30 WBC 4.66 L (4.8-10.8) K/ul RBC 3.38 L (4.20-5.40) M/uL Hgb 9.6 L (12.0-16.0) g/dl Hct 29.7 L (37.0-47.0) % MCV 87.9 (80.0-100.0) fL MCH 28.4 (25.0-34.0) pg MCHC 32.3 (32.0-36.0) g/dL RDW Std Deviation 44.7 (36.4-46.3) fL RDW Coeff of Brian 14.1 (11.5-14.5) % Plt Count 235 (130-400) K/uL MPV 10.1 (9.4-12.4) fL Immature Gran % (Auto) 0.4 % Neut % (Auto) 55.0 % Lymph % (Auto) 24.9 % [place] % (Auto) 18.5 % Eos % (Auto) 0.6 % Baso % (Auto) 0.6 % Neut # (Auto) 2.56 (1.40-6.50) K/uL Lymph # (Auto) 1.16 L (1.20-3.40) K/uL [place] # (Auto) 0.86 H (0.11-0.59) K/uL Eos # (Auto) 0.03 (0.00-0.50) K/uL Baso # (Auto) 0.03 (0.00-0.20) K/uL Immature Gran # (Auto) 0.02 (0.01-0.20) K/uL Sodium 133 L (136-145) mmol/L Potassium 3.7 (3.5-5.1) mmol/L Chloride 106 (98-107) mmol/L Carbon Dioxide 19 L (21-32) mmol/L Anion Gap 8 (3-11) BUN 40 H (6-23) mg/dl Creatinine 1.41 H (0.6-1.2) mg/dl Est Cr Clr Drug Dosing 31.1 ml/min Est GFR ( Amer) 41.5 ml/min Est GFR (Non-Af Amer) 35.8 ml/min BUN/Creatinine Ratio 28.4 H (10-20) Glucose 121 H (70-99(Fasting)) mg/dl Calcium 9.5 (8.6-10.3) mg/dl Magnesium 1.7 (1.7-2.4) mg/dl Total Bilirubin 0.6 (0.2-1.0) mg/dl AST 15 (13-39) U/L ALT 15 (7-52) U/L Alkaline Phosphatase 92 (34-104) U/L Total Protein 6.7 (6.0-8.3) gm/dl Albumin 4.1 (3.4-5.0) gm/dl Globulin 2.6 (2.5-4.0) gm/dl Albumin/Globulin Ratio 1.6 (0.9-2) Lipase 266 H (11-82) U/L Administered Medications Acetaminophen (Acetaminophen 325 Mg Tab) 650 mg PO [facility] Stop: 11/16/23 20:59 Last Admin: 10/17/23 20:14 Dose: 650 mg Documented By: ANA Aspirin (Aspirin 81 Mg Ectab) 81 mg PO [facility] Stop: 11/16/23 08:59 Last Admin: 10/17/23 08:39 Dose: 81 mg Documented By: HARISH Atorvastatin Calcium (Atorvastatin 40 Mg Tab) 40 mg PO [facility] Stop: 11/16/23 20:59 Last Admin: 10/17/23 20:15 Dose: 40 mg Documented By: ANA Citalopram Hydrobromide (Citalopram 20 Mg Tab) 20 mg PO [facility] Stop: 11/16/23 08:59 Last Admin: 10/17/23 08:38 Dose: 20 mg Documented By: HARISH Gabapentin (Gabapentin 100 Mg Cap) 100 mg PO TID [facility] Stop: 11/16/23 08:59 Last Admin: 10/17/23 20:14 Dose: 100 mg Documented By: Admin: 10/17/23 13:31 Dose: 100 mg Documented By: Admin: 10/17/23 08:38 Dose: 100 mg Documented By: HARISH Sodium Chloride (Nss) 1,000 mls @ 100 mls/hr IV .Q10H [facility] Stop: 11/16/23 14:29 Last Admin: 10/17/23 14:55 Dose: 100 mls/hr Documented By: HARISH Insulin Aspart (Insulin Aspart Per Unit Charge) 0 units SC ACHS [facility] Stop: 11/16/23 07:29 Last Admin: 10/17/23 21:41 Dose: 1 units Documented By: ANA Co-signed By: CARMEN Admin: 10/17/23 17:14 Dose: 2 units Documented By: HARISH Co-signed By: JEREMY Admin: 10/17/23 12:08 Dose: 2 units Documented By: HARISH Co-signed By: JEREMY Admin: 10/17/23 08:37 Dose: Not Given Documented By: HARISH Insulin Glargine (Lantus Per Unit Charge) 5 units SQ DAILY [facility] Stop: 11/16/23 08:59 Last Admin: 10/17/23 08:46 Dose: 5 units Documented By: HARISH Co-signed By: JENNIFER Isosorbide Mononitrate (Isosorbide [place] Extended Rel 60 Mg Tabcr) 60 mg PO QAM [facility] Stop: 11/16/23 08:59 Last Admin: 10/17/23 08:39 Dose: 60 mg Documented By: HARISH Loperamide HCl (Loperamide Hcl 2 Mg Cap) 4 mg PO Q4H PRN PRN Reason: loose stool Stop: 11/16/23 03:55 Last Admin: 10/17/23 17:14 Dose: 4 mg Documented By: Admin: 10/17/23 12:37 Dose: 4 mg Documented By: HARISH Lorazepam (Lorazepam 0.5 Mg Tab) 0.5 mg PO HS [facility] Stop: 11/16/23 20:59 Last Admin: 10/17/23 20:18 Dose: 0.5 mg Documented By: ANA Methenamine Hippurate (Methenamine Hippurate 1 Gm Tab) 1 gm PO BID@0730,2100 [facility] Stop: 11/16/23 01:53 Last Admin: 10/17/23 20:15 Dose: 1 gm Documented By: Admin: 10/17/23 08:38 Dose: 1 gm Documented By: Admin: 10/17/23 04:14 Dose: 1 gm Documented By: CARMEN Metoprolol Tartrate (Metoprolol Tartrate 50 Mg Tab) 50 mg PO BID [facility] Stop: 11/16/23 08:59 Last Admin: 10/17/23 20:16 Dose: 50 mg Documented By: Admin: 10/17/23 08:39 Dose: 50 mg Documented By: HARISH Pantoprazole Sodium (Pantoprazole 40 Mg Tab) 40 mg PO QAM [facility] Stop: 11/16/23 08:59 Last Admin: 10/17/23 08:39 Dose: 40 mg Documented By: HARISH Quetiapine Fumarate (Quetiapine Fumarate 25 Mg Tablet) 25 mg PO QAM [facility] Stop: 11/16/23 08:59 Last Admin: 10/17/23 08:38 Dose: 25 mg Documented By: HARISH Ticagrelor (Ticagrelor 90 Mg Tab) 90 mg PO BID [facility] Stop: 11/16/23 08:59 Last Admin: 10/17/23 20:17 Dose: 90 mg Documented By: Admin: 10/17/23 08:38 Dose: 90 mg Documented By: HARISH Discontinued Medications Dicyclomine HCl (Dicyclomine Hcl 10 Mg Cap) 10 mg PO NOW ONE Stop: 10/16/23 20:20 Last Admin: 10/16/23 21:01 Dose: 10 mg Documented By: JANET Sodium Chloride (Nss) 1,000 mls @ 125 mls/hr IV .Q8H [facility] Stop: 11/15/23 20:29 Last Infusion: 10/17/23 02:16 Dose: Infused Documented By: Admin: 10/16/23 21:01 Dose: 125 mls/hr Documented By: JNAET Famotidine (Pepcid 20mg Iv Push) 20 mg in 5 mls @ 2.5 mls/min IV NOW STA Stop: 10/16/23 20:20 Last Admin: 10/16/23 21:01 Dose: 2.5 mls/min Documented By: JANET Acetaminophen (Ofirmev) 1,000 mg in 100 mls @ 400 mls/hr IV NOW STA Stop: 10/16/23 23:08 Last Infusion: 10/16/23 23:42 Dose: Infused Documented By: JULIO CESAR Admin: 10/16/23 23:03 Dose: 400 mls/hr Documented By: JANET Lactated Ringer's (Lr) 1,000 mls @ 125 mls/hr IV .Q8H [facility] Stop: 10/17/23 09:53 Last Infusion: 10/17/23 11:25 Dose: Infused Documented By: Admin: 10/17/23 03:14 Dose: 125 mls/hr Documented By: CARMEN Ioversol (Optiray 320 100ml) 90 ml IV ONCE ONE Stop: 10/16/23 20:49 Last Admin: 10/16/23 20:48 Dose: 90 ml Documented By: KASI Imaging Data Radiologist's Impression: Abdomen/Pelvis CT 10/16/23 20:19 Exam(s): CT ABDOMEN + PELVIS With Contrast IV Amt: 90 ml optiray 320 EXAM: CT Abdomen and Pelvis With Intravenous Contrast CLINICAL HISTORY: abd pain, diarrhea, elevated lipase. TECHNIQUE: Axial computed tomography images of the abdomen and pelvis with intravenous contrast. CTDI is 26.32 mGy and DLP is 1152.7 mGy-cm. Automated exposure control was utilized for the study. A dose lowering technique was utilized adhering to the principles of ALARA. CONTRAST: Patient received 90 ml optiray 320 of IV contrast COMPARISON: CT abdomen and pelvis without contrast dated 06/24/2023 FINDINGS: Lung bases: Unremarkable. No mass. No consolidation. ABDOMEN: Liver: Incidental calcification along the superior margin of the right lobe of the liver, measuring 15 mm. No enhancing hepatic lesions. Gallbladder and bile ducts: Cholecystectomy. No ductal dilation. Pancreas: Unremarkable. No mass. No ductal dilation. Spleen: Unremarkable. No splenomegaly. Adrenals: Unremarkable. No mass. Kidneys and ureters: The kidneys demonstrate normal enhancement. No pyelonephritis. Scattered nonobstructive, subcentimeter bilateral nephrolithiasis, left greater than right. No definite ureteral stones. Stomach and bowel: No evidence for small bowel obstruction. There is prominent fluid throughout the colon with hyperenhancement and mild thickening of the mucosa. No evidence for diverticulitis. PELVIS: Appendix: The appendix is not clearly delineated. No significant findings to suggest acute appendicitis. Bladder: The bladder is mildly distended without bladder wall thickening or bladder stones. Reproductive: Prominent ovarian veins measuring 9 mm in the left and 7 mm on the right. ABDOMEN and PELVIS: Intraperitoneal space: Unremarkable. No free air. No significant fluid collection. Bones/joints: Multilevel degenerative changes throughout the thoracolumbar spine. No acute osseous abnormality. No dislocation. Soft tissues: Unremarkable. Vasculature: Atherosclerotic calcification of the normal caliber aorta. No dissection or aneurysm. Lymph nodes: Unremarkable. No enlarged lymph nodes. IMPRESSION: No evidence for small bowel obstruction. There is prominent fluid throughout the colon with hyperenhancement and mild thickening of the mucosa. Findings are most consistent with inflammatory infectious colitis with suspected associated diarrheal disease. No evidence for diverticulitis. No free intraperitoneal fluid or pneumoperitoneum. Electronically signed by: Carlos Galan MD 10/16/23 23:21 PM Discharge Plan Visit Data Chief Complaint: Abdominal Pain Stated Complaint: Abdominal Pain, Diarrhea ED Provider: Heavenly Jean Baptiste Discharge Problem: Abdominal pain, Diarrhea, YAKOV (acute kidney injury), Anemia Patient Disposition: Admitted As Inpatient Discharge Instructions Interventions: ED Discharge Assessment Last Done: 10/17/23 01:42 Discharge Problem: Abdominal pain Qualifiers: Abdominal location: right lower quadrant Qualified Code(s): R10.31 - Right lower quadrant pain Diarrhea Qualifiers: Diarrhea type: unspecified type Qualified Code(s): R19.7 - Diarrhea, unspecified
[2023-10-16] MEDS: OPTIRAY 320 100ml IV ONE (20:48)
[2023-10-16] MEDS: DICYCLOMINE HCL 10 MG CAP PO ONE (21:01)
[2023-10-16] MEDS: FAMOTIDINE 20MG IV PUSH 20 MG/5 ML SYR IV STA (21:01)
[2023-10-16] MEDS: SODIUM CHLORIDE 0.9% 1,000 ML IV SCH (21:01)
[2023-10-16 21:02] LABS: Magnesium 1.7 mg/dl (1.7-2.4)
[2023-10-16] MEDS: ACETAMINOPHEN 1,000 MG/100 ML VIAL IV STA (23:03)
--- OUTSIDE RECORDS SUMMARY | 2023-10-16 23:08 | External Medical Summary | Summary of Care ---
Author Name Unknown Organization [facility] Address [address] [place] [address] Phone [phone] Care Team Providers Care Steamtable Worker Name Role Phone Levon Adam Guanaconaseem Primary Care Provider Encounter Details Date Type Department Care Team (Late st Contact Info) Description 10/12/2023 Orders Only Outcomes Research Department [address], [place] [id number] Briseyda Ly [email or web address] Research Other*[id number] Allergies Active Allergy Reactions Criticality Noted Date Comments Latex 12/31/2005 "Bumpy and itchy" Niacin 01/19/2007 Intolerance, painful flushing and burning Simvastatin 06/25/2006 Has had episode rhabdomolysis documented as of this encounter (statuses as of 10/12/2023) Medications Medication Sig Dispensed Refills Start Date End Date Status ACETAMINOPHEN 325 MG PO TABSIndications:He adache(784.0) Two pills by mouth every 6 hours as needed for fever or pain: give 2 tab every evening at bedtime. 100 Tab 0 12/31/2012 Active glucose 4 G CHEWIndications:DM type 2, goal A1C below 8.0 Take [...] PEN NEEDLE (NOVOFINE) 32G X 6 MM MISCIndications:Ty pe 2 diabetes mellitus with hemoglobin A1c goal of 7.0%-8.0% ([facility]) USE UP TO 6 TIMES A DAY FOR CHECKING BLOOD SUGARS 200 Each 5 10/20/2016 Active ONETOUCH ULTRA BLUE STRPIndications:DM type 2 causing renal disease ([facility]) USE TO TEST BSG FOUR [...] mouth in the morning. 09/08/2023 Active Nystatin 397806 UNIT/GM External Cream 09/02/2023 Active Nystatin 266889 UNIT/GM External Powder (Nystop) 09/02/2023 Active Loperamide HCl 2 MG Oral Capsule (Imodium) Take 1 Capsule by mouth 4 times a day as needed. 08/19/2023 Active Trulicity 4.5 MG/0.5ML Subcutaneous Solution Pen-injector Inject 4.5 mg under the skin once a week. 07/27/2023 Active HumaLOG KwikPen 100 UNIT/ML Subcutaneous Solution Pen-injector 08/13/2023 Active Lantus SoloStar 100 UNIT/ML Subcutaneous Solution Pen-injector 09/03/2023 Active Hospital, Clinic, or Other Facility Administered Medication [...] as of this encounter (statuses as of 10/12/2023) Active Problems Problem Noted Date Diagnosed Date [...] as of this encounter (statuses as of 10/12/2023) Resolved Problems Problem Noted Date Diagnosed Date [...] OBSTIPATION 08/17/2010 07/19/2016 Urinary tract infection 08/17/2010 0508/2016 Dysuria 08/17/2010 06/06/2011 Obesity, morbid (more than [...] term ACTIVE CASE MANAGEMENT Isa Reed RN [phone] 09/12/2008 12/31/2009 Left internal carotid stenosis 40-50% 09/06/2008 07/19/2016 Overview: Carotid us should be performed 02/21 and if stable yearly thereafter Rhabdomyolysis 06/25/2006 07/19/2016 PREOPERATIVE CARDIOVASCULAR EXAMINATION 05/12/2006 06/06/2011 DM type 2, not at goal 12/31/200512/28 Overview: Modified per Diabetes protocol #14. Tachycardia 05/06/2002 07/19/2016 Mixed dyslipidemia 05/21/2001 Overview: Per Lipid Taxonomy. HYPERTENSION NOS 02/06/2009 Overview: Modified per HTN protocol #16. DIAB RENAL MANIF ADULT 07/19 Seborrhea 06/06/2011 Calculus of kidney 7 documented as of this encounter (statuses as of 10/12/2023) Immunizations Name Administration Dates Next Due COVID-19 [...] Split, I IV3, With Preserve, Inj 12/14/2017,12/23/2014,01/02/2014,12/23,01/02/2012,12/25/2010,12/08/2009 ,11/16/2008,01/05/2008,01/19/2007,/03/2006 Seasonal Influenza, Trivalen t, Adjuvanted, 65+ yrs [...] on file documented as of this encounter Plan of Treatment Upcoming Encounters Date Type Department Care Team (Late st Contact Info) Description 12/01/2023 10:15 AM EDT Office Visit Ophthalmology, [facility] [address] [place] [id number] Arnie Palumbo, DO [address] [place] [id number] 06/30/2024 11:00 AM EDT Office Visit [facility] Disorders Ctr [facility] [address] [place] [phone] Farideh Marin, DO [address] [place] [id number] Scheduled Orders Name Type Priority Associated Diagnoses Orde r Schedule MYCODE INITIAL ADULT Lab Routine MyCode Research Other*[id number] Expected: 10/12/2023 (Approximate), Expires: 10/31/2024 Scheduled Procedures Name Priority Associated Diagnoses Date/Ti me COLONOSCOPY FLEXIBLE PROXIMAL DIAGNOSTIC Recall History of [...] 08/14, 07/03/2014, Additional history exists COVID-19 Vaccine (2022- season) 2023 01/14/2023, 10/16/2020, 04/24/2020, Additional history [...] Additional history exists Zoster Vaccines Completed 01/14/2023, 0510/2022, 05/12/2014 HPV (Gardasil) Vaccine Aged Out No lo nger eligible based on patient's age to complete this topic MENINGOCOCCAL (MENACTRA/MENVEO) Aged Out No longer eligible based on patient's age to complete this topic documented as of this encounter Medical Devices Not on filedocumented as of this encounter Visit Diagnoses Diagnosis MyCode Research Other*[id number] documented in this encounter Advance Directives Documents on File Type Date Recorded Patient 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
--- NOTE | 2023-10-16 23:22 | CT Scan Report ---
Exam(s): CT ABDOMEN + PELVIS With Contrast IV Amt: 90 ml optiray 320 EXAM: CT Abdomen and Pelvis With Intravenous Contrast CLINICAL HISTORY: abd pain, diarrhea, elevated lipase. TECHNIQUE: Axial computed tomography images of the abdomen and pelvis with intravenous contrast. CTDI is 26.32 mGy and DLP is 1152.7 mGy-cm. Automated exposure control was utilized for the study. A dose lowering technique was utilized adhering to the principles of ALARA. CONTRAST: Patient received 90 ml optiray 320 of IV contrast COMPARISON: CT abdomen and pelvis without contrast dated 06/24/2023 FINDINGS: Lung bases: Unremarkable. No mass. No consolidation. ABDOMEN: Liver: Incidental calcification along the superior margin of the right lobe of the liver, measuring 15 mm. No enhancing hepatic lesions. Gallbladder and bile ducts: Cholecystectomy. No ductal dilation. Pancreas: Unremarkable. No mass. No ductal dilation. Spleen: Unremarkable. No splenomegaly. Adrenals: Unremarkable. No mass. Kidneys and ureters: The kidneys demonstrate normal enhancement. No pyelonephritis. Scattered nonobstructive, subcentimeter bilateral nephrolithiasis, left greater than right. No definite ureteral stones. Stomach and bowel: No evidence for small bowel obstruction. There is prominent fluid throughout the colon with hyperenhancement and mild thickening of the mucosa. No evidence for diverticulitis. PELVIS: Appendix: The appendix is not clearly delineated. No significant findings to suggest acute appendicitis. Bladder: The bladder is mildly distended without bladder wall thickening or bladder stones. Reproductive: Prominent ovarian veins measuring 9 mm in the left and 7 mm on the right. ABDOMEN and PELVIS: Intraperitoneal space: Unremarkable. No free air. No significant fluid collection. Bones/joints: Multilevel degenerative changes throughout the thoracolumbar spine. No acute osseous abnormality. No dislocation. Soft tissues: Unremarkable. Vasculature: Atherosclerotic calcification of the normal caliber aorta. No dissection or aneurysm. Lymph nodes: Unremarkable. No enlarged lymph nodes. IMPRESSION: No evidence for small bowel obstruction. There is prominent fluid throughout the colon with hyperenhancement and mild thickening of the mucosa. Findings are most consistent with inflammatory infectious colitis with suspected associated diarrheal disease. No evidence for diverticulitis. No free intraperitoneal fluid or pneumoperitoneum. Electronically signed by: Carlos Galan MD 10/16/23 23:21 PM
--- NOTE | 2023-10-17 00:38 | History & Physical Report ---
Date of Service October 17, 2023 Assessment & Plan (1) Diarrhea: Plan: 78yo female with chronic diarrhea ongoing x 2 months. Patient with evidence of dehydration, mild YAKOV. Infectious workup is NEGATIVE. Suspect more inflammatory cause - ?colitis such as microscopic colitis or collagenous colitis. Mild elevation of lipase ?EPI? pancreatic cause -Admit to medical -IVF and electrolyte repletion as needed -Will limit lactose for now -Continue Imodium -Consider tincture of opium for ongoing diarrhea refractory to imodium -Check stool calprotectin -Check stool Giardia -Check stool FOBT Patient ideally would have a diagnostic colonoscopy at some point - has been on DAPT appx 7 months with plan to continue at least until March 2024 -GI Consultation appreciated (2) YAKOV (acute kidney injury): Plan: Mild elevation in Cr=1.41 today. Increased from 0.8. Likely secondary to prerenal cause - increased volume loss with diarrhea and decreased intake. Patient received 1L NSS in the ER. Preserved EF with mild inferolateral hypokinesis noted on last echo. -LR at 125mL/hr x 1L -Repeat chemistry in AM -Avoid nephrotoxic agents -Renal dosing (3) History of CAD (coronary artery disease): Plan: CAD s/p STEMI with MAUREEN placed to LCx in March 2023. Also with 80% small distal LAD disease being medically managed. Patient is on ASA and Brillinta. Follows with Cardiology. Denies chest pain, palpitations or SOB -Continue ASA and Brillinta -Continue Metoprolol -Continue Atorvastatin -Continue Isosorbide moninitrate Plan Depression - chronic, stable -Continue Celexa Diabetes - chronic -Lantus 5u qAM -ISS -Continue Neurontin GERD - chronic -Continue Protonix ROMAN - chronic -CPAP qHS History of Present Illness Chief Complaint: diarrhea Primary Care Provider: Levon Adam DO Stefany Arroyo is a 78yo female with history of CAD s/p STEMI in March 2023 s/p MAUREEN to distal Cx, HTN, DM, ROMAN presenting with ongoing diarrhea. Patient report diarrhea ongoing for the last two months. She has diarrhea almost every day. She reports 6-7 episodes of watery diarrhea with urgency, incontinence and night-time symptoms. She has lower abdominal cramping on occasion as well which is often improved with BM. Decreased oral intake No blood or mucus in the stool. She is uncertain if her diarrhea episodes are associated with eating or any type of food. Patient has been taking Immodium at home with minimal improvement. She denies fever, chills, abdominal pain. She has lost weight - estimated 50-60# over the last year - unintentional She had a colonoscopy performed appx 12 years ago at [facility] - does not recall any concerning findings. Recent stent placement in March 2023 - on DAPT with ASA and Brillinta. Has not been able to have repeat colonoscopy due to DAPT and fresh stent. Was admitted to [facility] with similar symptoms 09/23 - 09/26/23. Found to have YAKOV, Pancolitis noted on CT imaging. GI consulted. Allergies Allergy/AdvReac Type Severity Reaction Status Date / Time latex Allergy Mild ON [facility] Verified 10/16/23 23:34 LIST-per patient- thinks rash niacin Allergy Unknown ON [facility] Verified 10/16/23 23:34 [From HeTexted LIST Extended-Release] simvastatin Allergy Unknown ON Verified 10/16/23 23:34 [facility] LIST- unsure Home Medications Medication Instructions Recorded Confirmed Type glucose 4 gram chewable tablet 1 tab PO DAILY PRN HYPOGLYCEMIA 11/26/17 10/16/23 History tolterodine 2 mg tablet 2 mg PO BID 11/26/17 10/16/23 History acetaminophen 325 mg tablet 650 mg PO Q6H PRN Fever Or Pain 06/12/18 10/16/23 History (Tylenol) nystatin 100,000 unit/gram topical 1 applic topical BID PRN RASH IN 11/24/22 10/16/23 History cream ABD FOLDS NEEDED pen needle, diabetic, safety 30 #100 ea 01/12/23 09/29/23 History gauge x 1/3" (Novofine Autocover) methenamine hippurate 1 gram tablet 1 g PO Q12H #180 tabs 02/12/23 10/16/23 Rx spironolactone 25 mg tablet 25 mg PO BID #60 tabs 03/20/23 10/16/23 Rx metoprolol tartrate 50 mg tablet 50 mg PO BID #60 tabs 04/08/23 10/16/23 Rx ticagrelor 90 mg tablet (Brilinta) 90 mg PO BID #60 tabs 04/08/23 10/16/23 Rx citalopram 20 mg tablet 20 mg PO QAM 05/09/23 10/16/23 History fluorometholone 0.1 % eye 1 drp OPB DAILY 05/09/23 10/16/23 History drops,suspension hydrocortisone 1 % topical cream 1 applic topical BID PRN Rash 05/09/23 10/16/23 History lisinopril 40 mg tablet 40 mg PO QAM 05/09/23 10/16/23 History vit C 250 mg-vit E 90 mg-zinc 40 1 tab PO BID 05/09/23 10/16/23 History mg-copper 1 [id number] capsule (PreserVision AREDS-2) aspirin 81 mg tablet,delayed 81 mg PO QAM #30 tabs 05/10/23 10/16/23 Rx release melatonin 10 mg capsule 10 mg PO HS sleep #30 caps 08/04/23 10/16/23 Rx polyethylene glycol 3350 17 gram 17 g PO QAM PRN constipation #0 ea 08/27/23 10/16/23 Rx oral powder packet gabapentin 100 mg capsule 100 mg PO TID #45 caps 08/28/23 10/16/23 Rx insulin glargine 100 unit/mL (3 5 unit (0.05 mL) subcut QAM #3 mL 08/28/23 10/16/23 Rx mL) subcutaneous pen (Lantus Solostar U-100 Insulin) timolol 0.5 % eye drops 1 drp OPB QAM #5 mL 08/31/23 10/16/23 Rx flash glucose sensor (FreeStyle 09/08/23 09/29/23 History [place] 2 Sensor kit) Qc Natural Veggie 95% Powder See Rx Instructions .Route .COMPLEX 09/24/23 10/16/23 History atorvastatin 40 mg tablet 40 mg PO HS 09/24/23 10/16/23 History dulaglutide 4.5 mg/0.5 mL 4.5 mg subcut WK 09/24/23 10/16/23 History subcutaneous pen injector (Trulicity) isosorbide mononitrate 60 mg 60 mg PO QAM 09/24/23 10/16/23 History tablet,extended release 24 hr nystatin 100,000 unit/gram topical 1 applic topical BID PRN Rash 09/24/23 10/16/23 History powder pantoprazole 40 mg tablet,delayed 40 mg PO QAM 09/24/23 10/16/23 History release quetiapine 25 mg tablet 25 mg PO QAM 09/24/23 10/16/23 History Bifidobacterium infantis 10.5 mg 10.5 mg PO DAILY #20 tabs 09/26/23 10/16/23 Rx (10 million cell) chewable tablet (Align) loperamide 2 mg capsule 4 mg (2 x 2 mg) PO Q4H PRN loose 09/26/23 10/16/23 Rx stool #30 caps acetaminophen 325 mg tablet 650 mg PO HS 09/29/23 10/16/23 History amoxicillin 500 mg capsule 2,000 mg PO DIRECTED PRN 1 HOUR 09/29/23 10/16/23 History PRIOR TO DENTAL VISIT lorazepam 0.5 mg tablet 0.5 mg PO HS anxiety #30 tabs 09/29/23 10/16/23 Rx Lift chair / recliner #1 ea 10/05/23 10/05/23 Rx insulin lispro 100 unit/mL 3 unit subcut TIDM 10/16/23 10/16/23 History subcutaneous pen (Humalog KwikPen (U-100) Insulin) Past Med/Surg History Problem List Diarrhea (Acute) Abdominal pain (Acute) Acute UTI (Acute) Acute dehydration (Acute) Diarrhea (Acute) Anemia (Acute) YAKOV (acute kidney injury) (Acute) Hypermagnesemia Gait instability (Acute) Imbalance Urinary incontinence History of CAD (coronary artery disease) (Acute) Anemia (Acute) Chest pain (Acute) Chest pain Diabetic retinopathy associated with type 2 diabetes mellitus Left nephrolithiasis Overactive bladder GERD (gastroesophageal reflux disease) hx Sleep apnea cpap nightly with 3lpm of oygen Depression Per records Glaucoma CAD (coronary artery disease) Occlusion of distal portion of left circumflex coronary artery Proteinuria Chronic kidney disease, stage 3a Vitamin D deficiency Diabetic nephropathy associated with type 2 diabetes mellitus Enteritis, inflammatory disorder of small intestine (Chronic Unknown) Fatigue (Acute) Generalized weakness (Acute) Knee pain (Acute) Radiculopathy, lumbar region Spinal stenosis of lumbar region Hypertension DVT prophylaxis Toe ulcer Pressure ulcer, stage III (Acute) Diabetes mellitus type 2 in obese Dyslipidemia Statin myopathy Peripheral neuropathy Hyponatremia Medical History UTI (urinary tract infection) YAKOV (acute kidney injury) STEMI (ST elevation myocardial infarction) History of recurrent UTI (urinary tract infection) Insomnia Per records Neuropathy per patient- hands and feet Hypertension Per records History of macular degeneration Chronic back pain Diabetes mellitus, type 2 IDDM Neurogenic claudication due to lumbar spinal stenosis History of nephrolithiasis Nasal bone fracture Cholecystitis, acute Surgical History Status post spinal surgery History of bilateral tubal ligation Hx of total knee arthroplasty bilateral S/P epidural steroid injection History of cholecystectomy History of colonoscopy History of cornea transplant bilateral History of cataract surgery bilateral History of appendectomy Family History Mother Breast cancer Aunt Colorectal cancer Diabetes Father Myocardial infarction Other No family history of adverse response to anesthesia No pertinent family history Denies family history of Ovarian cancer Prostate cancer Social History Smoking Status: Never smoker Tobacco Type: Cigarettes Age Quit Using Tobacco: 64; Cigarettes Per Day: 2 packs/day; Second Hand Exposure: No; Do You Dip or Chew Tobacco: No; Hx Alcohol Use: No Hx Substance Use: No Preferred Language: Nigerien Communication Ability: Effective Visual Impairment: No Limitations Hearing Ability: Normal Director Health Required: No Beliefs That Will Affect Care: None marital status: Current Living Situation: Personal Care Facility Current Living Situation Comment: [facility] current occupational status: retired current occupation: Retired How many Children do You have: 2 Feels Safe at Home: Yes Childhood Exposure to Second-Hand Smoke: No Diet: regular caffeine: No during the past year weight has: remained stable Dental Care, Regularly: Yes Physical Activity Frequency: Does not Exercise Seatbelt Use: sometimes Sunscreen Use: Yes Assistive Devices: CPAP, Oxygen - at Night and Walker Review of Systems Review of Systems: All systems reviewed & are unremarkable except as noted in HPI & below Physical Exam Physical Exam: General: patient resting comfortably, NAD, non-toxic in appearance, AA&O x 4 Skin: warm, dry, intact, no rashes or lesions HEENT: NC/AT, PERRL, EOMI, anicteric sclera, conjunctiva without injection, external ear normal to inspection and nontender, nares patent, moist mucus membranes, dentition intact, no oropharyngeal lesions, neck supple, trachea midline, no LAD, no thyromegaly, no JVD Heart: +S1/S2, regular, no m/r/g Lungs: equal air entry bilaterally, no rales/rhonchi/wheezes Abd: +BS, soft, ND, mild tenderness in the lower abdomen, no masses/organomegaly/ascites Ext: warm, 2+ pulses in UE/LE bilaterally, no clubbing/cyanosis or edema Neuro: nonfocal, patient AA&O x 4, speech intact, no facial droop, moving all extremities on command with equal strength 5/5 Results & Data Results & Data Vital Signs (Past 12 Hours) Vital Signs Pulse Pulse Resp BP BP Pulse Ox O2 Del Method 10/16/23 23:00 127/61 10/16/23 23:00 127/61 97 Room Air 10/16/23 22:00 112/47 L 95 Room Air 10/16/23 21:03 79 20 137/59 L 98 Room Air 10/16/23 19:29 85 10/16/23 19:27 87 12 128/71 98 Room Air Laboratory Results Laboratory Results WBC 4.66 K/ul (4.8-10.8) L 10/16/23 19:30 RBC 3.38 M/uL (4.20-5.40) L 10/16/23 19:30 Hgb 9.6 g/dl (12.0-16.0) L 10/16/23 19:30 Hct 29.7 % (37.0-47.0) L 10/16/23 19:30 MCV 87.9 fL (80.0-100.0) 10/16/23 19:30 MCH 28.4 pg (25.0-34.0) 10/16/23 19:30 MCHC 32.3 g/dL (32.0-36.0) 10/16/23 19:30 RDW Std Deviation 44.7 fL (36.4-46.3) 10/16/23 19:30 RDW Coeff of Brian 14.1 % (11.5-14.5) 10/16/23 19: Plt Count 235 K/uL (130-400) 10/16/23 19: MPV 10.1 fL (9.4-12.4) 10/16/23 19:30 Immature Gran % (Auto) 0.4 % 10/16/23 19:30 Neut % (Auto) 55.0 % 10/16/23 19:30 Lymph % (Auto) 24.9 % 10/16/23 19:30 [place] % (Auto) 18.5 % 10/16/23 19:30 Eos % (Auto) 0.6 % 10/16/23 19:30 Baso % (Auto) 0.6 % 10/16/23 19:30 Neut # (Auto) 2.56 K/uL (1.40-6.50) 10/16/23 19:30 Lymph # (Auto) 1.16 K/uL (1.20-3.40) L 10/16/23 19:30 [place] # (Auto) 0.86 K/uL (0.11-0.59) H 10/16/23 19:30 Eos # (Auto) 0.03 K/uL (0.00-0.50) 10/16/23 19:30 Baso # (Auto) 0.03 K/uL (0.00-0.20) 10/16/23 19:30 Immature Gran # (Auto) 0.02 K/uL (0.01-0.20) 10/16/23 19:30 Sodium 133 mmol/L (136-145) L 10/16/23 19:30 Potassium 3.7 mmol/L (3.5-5.1) 10/16/23 19:30 Chloride 106 mmol/L (98-107) 10/16/23 19:30 Carbon Dioxide 19 mmol/L (21-32) L 10/16/23 19:30 Anion Gap 8 (3-11) 10/16/23 19:30 BUN 40 mg/dl (6-23) H 10/16/23 19:30 Creatinine 1.41 mg/dl (0.6-1.2) H 10/16/23 19:30 Est Cr Clr Drug Dosing 31.1 ml/min 10/16/23 19:30 Est GFR ( Amer) 41.5 ml/min 10/16/23 19:30 Est GFR (Non-Af Amer) 35.8 ml/min 10/16/23 19:30 BUN/Creatinine Ratio 28.4 (10-20) H 10/16/23 19:30 Glucose 121 mg/dl (70-99(Fasting)) H 10/16/23 19:30 POC Glucose 91 mg/dl (70-99) 10/17/23 03:15 Calcium 9.5 mg/dl (8.6-10.3) 10/16/23 19:30 Magnesium 1.7 mg/dl (1.7-2.4) 10/16/23 19:30 Total Bilirubin 0.6 mg/dl (0.2-1.0) 10/16/23 19:30 AST 15 U/L (13-39) 10/16/23 19:30 ALT 15 U/L (7-52) 10/16/23 19:30 Alkaline Phosphatase 92 U/L (34-104) 10/16/23 19:30 Total Protein 6.7 gm/dl (6.0-8.3) 10/16/23 19:30 Albumin 4.1 gm/dl (3.4-5.0) 10/16/23 19:30 Globulin 2.6 gm/dl (2.5-4.0) 10/16/23 19:30 Albumin/Globulin Ratio 1.6 (0.9-2) 10/16/23 19:30 Lipase 266 U/L (11-82) H 10/16/23 19:30 Nasal Screen MRSA (PCR) Negative (Negative) 10/17/23 02:10 Stool Occult Bld Scrn Negative (Negative) 10/17/23 02:10 Stl C. cayetanensis PCR Not Detected (NotDetected) 10/17/23 02:00 Stool Rotavirus A PCR Not Detected (NotDetected) 10/17/23 02:00 Stl Adenov F 40/41 PCR Not Detected (NotDetected) 10/17/23 02:00 Stool Astrovirus (PCR) Not Detected (NotDetected) 10/17/23 02:00 Stool Campylobacter PCR Not Detected (NotDetected) 10/17/23 02:00 Stl C. diff Tox B Gene Negative Cdiff Gene (Neg) 10/17/23 02:00 Stool Cryptosporidium PCR Not Detected (NotDetected) 10/17/23 02:00 Stl E.coli Shiga Tox PCR Not Detected (NotDetected) 10/17/23 02:00 Stl Enterotoxigenic E PCR Not Detected (NotDetected) 10/17/23 02:00 Stool EPEC (PCR) Not Detected (NotDetected) 10/17/23 02:00 Stool EAEC (PCR) Not Detected (NotDetected) 10/17/23 02:00 Stl E. histolytica PCR Not Detected (NotDetected) 10/17/23 02:00 Stool Giardia Lamblia PCR Not Detected (NotDetected) 10/17/23 02:00 Stool Salmonella PCR Not Detected (NotDetected) 10/17/23 02:00 Stool Sapovirus (PCR) Not Detected (NotDetected) 10/17/23 02:00 Stl P. shigelloides PCR Not Detected (NotDetected) 10/17/23 02:00 Stl Shigella/EIEC PCR Not Detected (NotDetected) 10/17/23 02:00 St Y.enterocolitica PCR Not Detected (NotDetected) 10/17/23 02:00 Stool Vibrio (PCR) Not Detected (NotDetected) 10/17/23 02:00 Stl Vibrio cholerae PCR Not Detected (NotDetected) 10/17/23 02:00 Stl Norovirus GI/GII PCR Not Detected (NotDetected) 10/17/23 02:00 Impressions Abdomen/Pelvis CT 10/16/23 20:19 Exam(s): CT ABDOMEN + PELVIS With Contrast IV Amt: 90 ml optiray 320 EXAM: CT Abdomen and Pelvis With Intravenous Contrast CLINICAL HISTORY: abd pain, diarrhea, elevated lipase. TECHNIQUE: Axial computed tomography images of the abdomen and pelvis with intravenous contrast. CTDI is 26.32 mGy and DLP is 1152.7 mGy-cm. Automated exposure control was utilized for the study. A dose lowering technique was utilized adhering to the principles of ALARA. CONTRAST: Patient received 90 ml optiray 320 of IV contrast COMPARISON: CT abdomen and pelvis without contrast dated 06/24/2023 FINDINGS: Lung bases: Unremarkable. No mass. No consolidation. ABDOMEN: Liver: Incidental calcification along the superior margin of the right lobe of the liver, measuring 15 mm. No enhancing hepatic lesions. Gallbladder and bile ducts: Cholecystectomy. No ductal dilation. Pancreas: Unremarkable. No mass. No ductal dilation. Spleen: Unremarkable. No splenomegaly. Adrenals: Unremarkable. No mass. Kidneys and ureters: The kidneys demonstrate normal enhancement. No pyelonephritis. Scattered nonobstructive, subcentimeter bilateral nephrolithiasis, left greater than right. No definite ureteral stones. Stomach and bowel: No evidence for small bowel obstruction. There is prominent fluid throughout the colon with hyperenhancement and mild thickening of the mucosa. No evidence for diverticulitis. PELVIS: Appendix: The appendix is not clearly delineated. No significant findings to suggest acute appendicitis. Bladder: The bladder is mildly distended without bladder wall thickening or bladder stones. Reproductive: Prominent ovarian veins measuring 9 mm in the left and 7 mm on the right. ABDOMEN and PELVIS: Intraperitoneal space: Unremarkable. No free air. No significant fluid collection. Bones/joints: Multilevel degenerative changes throughout the thoracolumbar spine. No acute osseous abnormality. No dislocation. Soft tissues: Unremarkable. Vasculature: Atherosclerotic calcification of the normal caliber aorta. No dissection or aneurysm. Lymph nodes: Unremarkable. No enlarged lymph nodes. IMPRESSION: No evidence for small bowel obstruction. There is prominent fluid throughout the colon with hyperenhancement and mild thickening of the mucosa. Findings are most consistent with inflammatory infectious colitis with suspected associated diarrheal disease. No evidence for diverticulitis. No free intraperitoneal fluid or pneumoperitoneum. Electronically signed by: Carlos Galan MD 10/16/23 23:21 PM PG Care Time/CCT Total # of Minutes Spent Total Time Spent with Patient: Total time spent is greater than 50% in coordination of care (as documented) at patient's floor/unit and/or counseling patient: Coding Level of Care Code 73083 INT INP/OBS CARE 2/55MIN Diagnoses Diarrhea R19.7 YAKOV (acute kidney injury) N17.9 History of CAD (coronary artery disease) Z86.79
[2023-10-17] MEDS ORDERED: ACETAMINOPHEN 325 MG TAB PO PRN (01:54)
[2023-10-17] MEDS ORDERED: DEXTROSE 50% 50 ML SYRINGE IV PRN (01:54)
[2023-10-17] MEDS ORDERED: CARBOHYDRATES FOR HYPOGLYCEMIA PO PRN (01:54)
[2023-10-17] MEDS ORDERED: GLUCAGON FOR INJ 1 MG VIAL SQ PRN (01:54)
[2023-10-17] MEDS ORDERED: GLUCOSE 40% GEL 15 GM TUBE PO PRN (01:54)
[2023-10-17] MEDS ORDERED: GLUCOSE 10 TAB/TUBE PO PRN (01:54)
[2023-10-17] MEDS: LACTATED RINGER'S 1,000 ML IV SCH (03:14)
[2023-10-17 03:37] LABS: Adenovirus F 40/41 PCR Not Detected (NotDetected); Astrovirus PCR Not Detected (NotDetected); Campylobacter PCR Not Detected (NotDetected); Cryptosporidium PCR Not Detected (NotDetected); Cyclospora cayetanensis PCR Not Detected (NotDetected); Entamoeba histolytica PCR Not Detected (NotDetected); Enteroaggregative E.coli(EAEC) Not Detected (NotDetected); Enteropathogenic E.coli (EPEC) Not Detected (NotDetected); Enterotoxigenic E.coli (ETEC) Not Detected (NotDetected); Giardia lamblia PCR Not Detected (NotDetected); Norovirus GI/GII PCR Not Detected (NotDetected); Plesiomonas shigelloides PCR Not Detected (NotDetected); Rotavirus A PCR Not Detected (NotDetected); Salmonella PCR Not Detected (NotDetected); Sapovirus PCR Not Detected (NotDetected); Shiga-like Toxin E.coli (STEC) Not Detected (NotDetected); Shigella/Enteroinvasive E.coli Not Detected (NotDetected); Vibrio cholerae PCR Not Detected (NotDetected); Vibrio species PCR Not Detected (NotDetected); Yersinia enterocolitica PCR Not Detected (NotDetected)
[2023-10-17] MEDS: METHENAMINE HIPPURATE 1 GM TAB PO SCH (04:14)
[2023-10-17] MEDS: INSULIN ASPART PER UNIT CHARGE SC SCH (08:37)
[2023-10-17] MEDS: GABAPENTIN 100 MG CAP PO SCH (08:38)
[2023-10-17] MEDS: TICAGRELOR 90 MG TAB PO SCH (08:38)
[2023-10-17] MEDS: QUEtiapine FUMARATE 25 MG TABLET PO SCH (08:38)
[2023-10-17] MEDS: CITALOPRAM 20 MG TAB PO SCH (08:38)
[2023-10-17] MEDS: ISOSORBIDE MONO EXTENDED REL 60 MG TABCR PO SCH (08:39)
[2023-10-17] MEDS: PANTOprazole 40 MG TAB PO SCH (08:39)
[2023-10-17] MEDS: METOPROLOL TARTRATE 50 MG TAB PO SCH (08:39)
[2023-10-17] MEDS: ASPIRIN 81 MG ECTAB PO SCH (08:39)
[2023-10-17] MEDS: LANTUS PER UNIT CHARGE SQ SCH (08:46)
[2023-10-17] MEDS ORDERED: MoRPHine SULFATE 10 MG/0.5 ML UDP PO PRN (11:33)
--- NOTE | 2023-10-17 11:44 | Hospitalist Progress Note ---
Date of Service October 17, 2023 Assessment & Plan (1) Diarrhea: Plan: 78yo female with chronic diarrhea ongoing x 2 months. Patient with evidence of dehydration, mild YAKOV. -CT scan of abdomen and pelvis done showed prominent fluid throughout the colon with hyperenhancement and mild thickening of the mucosa, consistent with inflammatory infectious colitis Infectious workup is NEGATIVE. -Patient continues to have about 6-7 episodes of diarrhea daily, Imodium is not helping. Willing to try p.o. morphine -Head Of Talent Management on consult -IVF and electrolyte repletion as needed -Will limit lactose for now -Continue Imodium -Stool calprotectin is pending -Check stool Giardia -Check stool FOBT Patient ideally would have a diagnostic colonoscopy at some point - has been on DAPT appx 7 months with plan to continue at least until March 2024 (2) YAKOV (acute kidney injury): Plan: Mild elevation in Cr=1.41 today. Increased from 0.8. Likely secondary to prerenal cause - increased volume loss with diarrhea and decreased intake. Patient received 1L NSS in the ER. Preserved EF with mild inferolateral hypokinesis noted on last echo. -LR at 125mL/hr x 1L -Repeat chemistry in AM -Avoid nephrotoxic agents -Renal dosing (3) History of CAD (coronary artery disease): Plan: CAD s/p STEMI with MAUREEN placed to LCx in March 2023. Also with 80% small distal LAD disease being medically managed. Patient is on ASA and Brillinta. Follows with Cardiology. Denies chest pain, palpitations or SOB -Continue ASA and Brillinta -Continue Metoprolol -Continue Atorvastatin -Continue Isosorbide moninitrate Plan Depression - chronic, stable -Continue Celexa Diabetes - chronic -Lantus 5u qAM -ISS -Continue Neurontin GERD - chronic -Continue Protonix ROMAN - chronic -CPAP qHS Admission and Anticipated Discharge Date Admission Date: October 17, 2023 Subjective Patient seen and examined, still having 6-7 episodes of diarrhea Review of Systems Review of Systems: All systems reviewed are negative, apart from the ones contained in the history. Physical Exam Physical Exam: The patient is awake, alert and oriented 3, well developed and well nourished, normocephalic and atraumatic, lying in bed and in no acute distress. HEENT--PERRL, EOMI, mucous membranes and oropharynx mildly dry Neck--supple. No JVD. No bruits. Thyroid normal, trachea midline, no adenopat hy. Heart--normal S1 and S2. No murmurs, rubs or gallops. Lungs--clear bilaterally, no respiratory distress, no accessory muscle use. Abdomen--normal bowel sounds and soft. Extremities--no cyanosis or clubbing. No edema. Dermatologic--normal skin turgor, normal color, no abnormal lymph nodes, no rash. Neurologic--cranial nerves II through XII grossly intact. Rheumatologic--normal range of motion. Psychiatric--normal affect. Results & Data Results & Data Vital Signs (Past 12 Hours) Vital Signs Temp Pulse Resp BP Pulse Ox O2 Del Method 10/17/23 07:27 98.1 F 77 18 131/73 97 Room Air 10/17/23 02:00 97.7 F 76 14 148/72 H 97 Room Air 10/17/23 01:11 95 H 20 123/54 L 95 Room Air PG Care Time/CCT Total # of Minutes Spent Total Time Spent with Patient: Total time spent is greater than 50% in coordination of care (as documented) at patient's floor/unit and/or counseling patient: Coding Level of Care Code 84241 SUB INP/OBS CARE 2/35MIN Diagnoses Diarrhea R19.7 YAKOV (acute kidney injury) N17.9 History of CAD (coronary artery disease) Z86.79 Time Spent (min) 35
[2023-10-17] MEDS: LOPERAMIDE HCL 2 MG CAP PO PRN (12:37)
--- NOTE | 2023-10-17 14:10 | Gastrointestinal Consultation ---
Date of Consultation October 17, 2023 Assessment & Plan (1) Diarrhea: ddx most likely microscopic colitis; less likely Crohn's or malignancy (2) Abdominal pain: likely 2/2 #1 (3) Anemia: (4) YAKOV (acute kidney injury): likely pre-renal and anticipate improvement with rehydration and treatment of diarrhea (5) Elevated lipase: suspect 2/2 meds and illness; nothing on exam or imaging to support primary pancreatic process at this time; description of BMs is not that of steatorrhea but, if colonoscopy unrevealing, consider further evaluation of the pancreas incl pancreatic function (6) STEMI (ST elevation myocardial infarction): (7) Weight loss, non-intentional: Along w anemia, raises concern for underlying malignancy given age and symptomatology; proceed w c-scope and further work up thereafter depending on results Plan -Given degree of symptomatology and repeated hospitalizations, the need for a colonoscopy is quite apparent; this can be performed on anti-platelet therapy if deemed necessary by cardiology due to STEMI in March. Biopsies can be taken and small polyps removed at low risk; larger polyps cannot be removed if encountered without significant risk of bleeding. Recommend proceeding as such early next week w colonoscopy. The patient has requested 10/19 rather than 8/. This will give her a bit of time to rehydrate and for reversal of the YAKOV noted on admission prior to proceeding with colonoscopy prep. -treatment of YAKOV as per hospitalist team -iron studies, b12, folate, TSH are recommended if not recently performed -diet as tolerated; clear liquid diet and gentle bowel prep on 8 History of Present Illness Reason for Consultation: diarrhea Attending Physician: Amy Florez MD History of Present Illness 78 year old female w CAD s/p STEMI in March 2023 w MAUREEN to distal cx, HTN, ROMAN who has been struggling with months of diarrhea. This is the third time she has presented to the hospital due to the diarrhea. She reports the diarrhea is watery and difficult to control. It occurs 5-7 times per day. She reports unintentional weight loss over the last year of 50-60 lbs. She has lost her appetite with the diarrhea and is eating very little. After her last hospitalization, she did take imodium 2 tabs QID with no improvement in her diarrhea. She denies fevers or chills. She has had a negative fecal PCR and a fecal calprotectin is pending. A colonoscopy was performed per her recollection at [facility] about 12 years ago. Allergies Allergy/AdvReac Type Severity Reaction Status Date / Time latex Allergy Mild ON [facility] Verified 10/16/23 23:34 LIST-per patient- thinks rash niacin Allergy Unknown ON [facility] Verified 10/16/23 23:34 [From [facility] LIST Extended-Release] simvastatin Allergy Unknown ON Verified 10/16/23 23:34 [facility] LIST- unsure Home Medications Medication Instructions Recorded Confirmed Type glucose 4 gram chewable tablet 1 tab PO DAILY PRN HYPOGLYCEMIA 11/26/17 10/16/23 History tolterodine 2 mg tablet 2 mg PO BID 11/26/17 10/16/23 History acetaminophen 325 mg tablet 650 mg PO Q6H PRN Fever Or Pain 06/12/18 10/16/23 History (Tylenol) nystatin 100,000 unit/gram topical 1 applic topical BID PRN RASH IN 11/24/22 10/16/23 History cream ABD FOLDS NEEDED pen needle, diabetic, safety 30 #100 ea 01/12/23 09/29/23 History gauge x 1/3" (Novofine Autocover) methenamine hippurate 1 gram tablet 1 g PO Q12H #180 tabs 02/12/23 10/16/23 Rx spironolactone 25 mg tablet 25 mg PO BID #60 tabs 03/20/23 10/16/23 Rx metoprolol tartrate 50 mg tablet 50 mg PO BID #60 tabs 04/08/23 10/16/23 Rx ticagrelor 90 mg tablet (Brilinta) 90 mg PO BID #60 tabs 04/08/23 10/16/23 Rx citalopram 20 mg tablet 20 mg PO QAM 05/09/23 10/16/23 History fluorometholone 0.1 % eye 1 drp OPB DAILY 05/09/23 10/16/23 History drops,suspension hydrocortisone 1 % topical cream 1 applic topical BID PRN Rash 05/09/23 10/16/23 History lisinopril 40 mg tablet 40 mg PO QAM 05/09/23 10/16/23 History vit C 250 mg-vit E 90 mg-zinc 40 1 tab PO BID 05/09/23 10/16/23 History mg-copper 1 [id number] capsule (PreserVision AREDS-2) aspirin 81 mg tablet,delayed 81 mg PO QAM #30 tabs 05/10/23 10/16/23 Rx release melatonin 10 mg capsule 10 mg PO HS sleep #30 caps 08/04/23 10/16/23 Rx polyethylene glycol 3350 17 gram 17 g PO QAM PRN constipation #0 ea 08/27/23 10/16/23 Rx oral powder packet gabapentin 100 mg capsule 100 mg PO TID #45 caps 08/28/23 10/16/23 Rx insulin glargine 100 unit/mL (3 5 unit (0.05 mL) subcut QAM #3 mL 08/28/23 10/16/23 Rx mL) subcutaneous pen (Lantus Solostar U-100 Insulin) timolol 0.5 % eye drops 1 drp OPB QAM #5 mL 08/31/23 10/16/23 Rx flash glucose sensor (FreeStyle 09/08/23 09/29/23 History Savanna 2 Sensor kit) Qc Natural Veggie 95% Powder See Rx Instructions .Route .COMPLEX 09/24/23 10/16/23 History atorvastatin 40 mg tablet 40 mg PO HS 09/24/23 10/16/23 History dulaglutide 4.5 mg/0.5 mL 4.5 mg subcut WK 09/24/23 10/16/23 History subcutaneous pen injector (Trulicity) isosorbide mononitrate 60 mg 60 mg PO QAM 09/24/23 10/16/23 History tablet,extended release 24 hr nystatin 100,000 unit/gram topical 1 applic topical BID PRN Rash 09/24/23 10/16/23 History powder pantoprazole 40 mg tablet,delayed 40 mg PO QAM 09/24/23 10/16/23 History release quetiapine 25 mg tablet 25 mg PO QAM 09/24/23 10/16/23 History Bifidobacterium infantis 10.5 mg 10.5 mg PO DAILY #20 tabs 09/26/23 10/16/23 Rx (10 million cell) chewable tablet (Align) loperamide 2 mg capsule 4 mg (2 x 2 mg) PO Q4H PRN loose 09/26/23 10/16/23 Rx stool #30 caps acetaminophen 325 mg tablet 650 mg PO HS 09/29/23 10/16/23 History amoxicillin 500 mg capsule 2,000 mg PO DIRECTED PRN 1 HOUR 09/29/23 10/16/23 History PRIOR TO DENTAL VISIT lorazepam 0.5 mg tablet 0.5 mg PO HS anxiety #30 tabs 09/29/23 10/16/23 Rx Lift chair / recliner #1 ea 10/05/23 10/05/23 Rx insulin lispro 100 unit/mL 3 unit subcut TIDM 10/16/23 10/16/23 History subcutaneous pen (Humalog KwikPen (U-100) Insulin) Patient History Medical History UTI (urinary tract infection) YAKOV (acute kidney injury) STEMI (ST elevation myocardial infarction) History of recurrent UTI (urinary tract infection) Insomnia Per records Neuropathy per patient- hands and feet Hypertension Per records History of macular degeneration Chronic back pain Diabetes mellitus, type 2 IDDM Neurogenic claudication due to lumbar spinal stenosis History of nephrolithiasis Nasal bone fracture Cholecystitis, acute Surgical History Status post spinal surgery History of bilateral tubal ligation Hx of total knee arthroplasty bilateral S/P epidural steroid injection History of cholecystectomy History of colonoscopy History of cornea transplant bilateral History of cataract surgery bilateral History of appendectomy Family History Mother Breast cancer Aunt Colorectal cancer Diabetes Father Myocardial infarction Other No family history of adverse response to anesthesia No pertinent family history Denies family history of Ovarian cancer Prostate cancer Social History Smoking Status: Former smoker Tobacco Type: Cigarettes Age Quit Using Tobacco: 64; Cigarettes Per Day: 2 packs/day; Second Hand Exposure: No; Do You Dip or Chew Tobacco: No; Tobacco Cessation Education Requested by Patient: No Hx Alcohol Use: No Hx Substance Use: No Preferred Language: Macedonian Communication Ability: Effective Visual Impairment: No Limitations Hearing Ability: Normal Diamond Grader Required: No Beliefs That Will Affect Care: None marital status: Current Living Situation: Personal Care Facility Current Living Situation Comment: [facility] current occupational status: retired current occupation: Retired How many Children do You have: 2 Other Information That Helps Us Care for You: No Feels Safe at Home: Yes Safety Concerns: Feels Safe At This Time Childhood Exposure to Second-Hand Smoke: No Diet: regular caffeine: No during the past year weight has: remained stable Dental Care, Regularly: Yes Physical Activity Frequency: Does not Exercise Seatbelt Use: sometimes Sunscreen Use: Yes Assistive Devices: Denture - Upper, Glasses, Hospital Bed, Oxygen - at Night and Walker Review of Systems Review of Systems: All systems reviewed & are unremarkable except as noted in HPI & below Physical Exam Constitutional: WD/WN, vitals as above Eyes: PERRL, conjunctivae normal, anicteric sclerae Neck: trachea midline, no thyromegaly Cardiovascular: RRR, no murmur, no edema Gastrointestinal (Abdomen): Non-distended, mild TTP in the lower abdomen L+R, no masses or HSM Results & Data Vital Signs (Past 12 Hours) Vital Signs Temp Pulse Resp BP Pulse Ox O2 Del Method 10/17/23 07:27 36.7 C 77 18 131/73 97 Room Air 10/17/23 02:00 36.5 C 76 14 148/72 H 97 Room Air Laboratory Results Laboratory Results - last 48 hr 10/16/23 10/17/23 10/17/23 19:30 02:00 02:10 WBC 4.66 L RBC 3.38 L Hgb 9.6 L Hct 29.7 L MCV 87.9 MCH 28.4 MCHC 32.3 RDW Std Deviation 44.7 RDW Coeff of Brian 14.1 Plt Count 235 MPV 10.1 Immature Gran % (Auto) 0.4 Neut % (Auto) 55.0 Lymph % (Auto) 24.9 Frederick % (Auto) 18.5 Eos % (Auto) 0.6 Baso % (Auto) 0.6 Neut # (Auto) 2.56 Lymph # (Auto) 1.16 L Frederick # (Auto) 0.86 H Eos # (Auto) 0.03 Baso # (Auto) 0.03 Immature Gran # (Auto) 0.02 Sodium 133 L Potassium 3.7 Chloride 106 Carbon Dioxide 19 L Anion Gap 8 BUN 40 H Creatinine 1.41 H Est Cr Clr Drug Dosing 31.1 Est GFR ( Amer) 41.5 Est GFR (Non-Af Amer) 35.8 BUN/Creatinine Ratio 28.4 H Glucose 121 H POC Glucose Calcium 9.5 Magnesium 1.7 Total Bilirubin 0.6 AST 15 ALT 15 Alkaline Phosphatase 92 Total Protein 6.7 Albumin 4.1 Globulin 2.6 Albumin/Globulin Ratio 1.6 Lipase 266 H Nasal Screen MRSA (PCR) Negative Stool Occult Bld Scrn Negative Stl C. cayetanensis PCR Not Detected Stool Rotavirus A PCR Not Detected Stl Adenov F 40/41 PCR Not Detected Stool Astrovirus (PCR) Not Detected Stool Campylobacter PCR Not Detected Stl C. diff Tox B Gene Negative Cdiff Gene Stool Cryptosporidium PCR Not Detected Stl E.coli Shiga Tox PCR Not Detected Stl Enterotoxigenic E PCR Not Detected Stool EPEC (PCR) Not Detected Stool EAEC (PCR) Not Detected Stl E. histolytica PCR Not Detected Stool Giardia Lamblia PCR Not Detected Stool Salmonella PCR Not Detected Stool Sapovirus (PCR) Not Detected Stl P. shigelloides PCR Not Detected Stl Shigella/EIEC PCR Not Detected St Y.enterocolitica PCR Not Detected Stool Vibrio (PCR) Not Detected Stl Vibrio cholerae PCR Not Detected Stl Norovirus GI/GII PCR Not Detected 10/17/23 10/17/23 10/17/23 03:15 07:53 11:48 WBC RBC Hgb Hct MCV MCH MCHC RDW Std Deviation RDW Coeff of Brian Plt Count MPV Immature Gran % (Auto) Neut % (Auto) Lymph % (Auto) Frederick % (Auto) Eos % (Auto) Baso % (Auto) Neut # (Auto) Lymph # (Auto) Frederick # (Auto) Eos # (Auto) Baso # (Auto) Immature Gran # (Auto) Sodium Potassium Chloride Carbon Dioxide Anion Gap BUN Creatinine Est Cr Clr Drug Dosing Est GFR ( Amer) Est GFR (Non-Af Amer) BUN/Creatinine Ratio Glucose POC Glucose 91 102 H 116 H Calcium Magnesium Total Bilirubin AST ALT Alkaline Phosphatase Total Protein Albumin Globulin Albumin/Globulin Ratio Lipase Nasal Screen MRSA (PCR) Stool Occult Bld Scrn Stl C. cayetanensis PCR Stool Rotavirus A PCR Stl Adenov F 40/41 PCR Stool Astrovirus (PCR) Stool Campylobacter PCR Stl C. diff Tox B Gene Stool Cryptosporidium PCR Stl E.coli Shiga Tox PCR Stl Enterotoxigenic E PCR Stool EPEC (PCR) Stool EAEC (PCR) Stl E. histolytica PCR Stool Giardia Lamblia PCR Stool Salmonella PCR Stool Sapovirus (PCR) Stl P. shigelloides PCR Stl Shigella/EIEC PCR St Y.enterocolitica PCR Stool Vibrio (PCR) Stl Vibrio cholerae PCR Stl Norovirus GI/GII PCR Diagnostic Findings Abdomen/Pelvis CT 10/16/23 20:19 Exam(s): CT ABDOMEN + PELVIS With Contrast IV Amt: 90 ml optiray 320 EXAM: CT Abdomen and Pelvis With Intravenous Contrast CLINICAL HISTORY: abd pain, diarrhea, elevated lipase. TECHNIQUE: Axial computed tomography images of the abdomen and pelvis with intravenous contrast. CTDI is 26.32 mGy and DLP is 1152.7 mGy-cm. Automated exposure control was utilized for the study. A dose lowering technique was utilized adhering to the principles of ALARA. CONTRAST: Patient received 90 ml optiray 320 of IV contrast COMPARISON: CT abdomen and pelvis without contrast dated 06/24/2023 FINDINGS: Lung bases: Unremarkable. No mass. No consolidation. ABDOMEN: Liver: Incidental calcification along the superior margin of the right lobe of the liver, measuring 15 mm. No enhancing hepatic lesions. Gallbladder and bile ducts: Cholecystectomy. No ductal dilation. Pancreas: Unremarkable. No mass. No ductal dilation. Spleen: Unremarkable. No splenomegaly. Adrenals: Unremarkable. No mass. Kidneys and ureters: The kidneys demonstrate normal enhancement. No pyelonephritis. Scattered nonobstructive, subcentimeter bilateral nephrolithiasis, left greater than right. No definite ureteral stones. Stomach and bowel: No evidence for small bowel obstruction. There is prominent fluid throughout the colon with hyperenhancement and mild thickening of the mucosa. No evidence for diverticulitis. PELVIS: Appendix: The appendix is not clearly delineated. No significant findings to suggest acute appendicitis. Bladder: The bladder is mildly distended without bladder wall thickening or bladder stones. Reproductive: Prominent ovarian veins measuring 9 mm in the left and 7 mm on the right. ABDOMEN and PELVIS: Intraperitoneal space: Unremarkable. No free air. No significant fluid collection. Bones/joints: Multilevel degenerative changes throughout the thoracolumbar spine. No acute osseous abnormality. No dislocation. Soft tissues: Unremarkable. Vasculature: Atherosclerotic calcification of the normal caliber aorta. No dissection or aneurysm. Lymph nodes: Unremarkable. No enlarged lymph nodes. IMPRESSION: No evidence for small bowel obstruction. There is prominent fluid throughout the colon with hyperenhancement and mild thickening of the mucosa. Findings are most consistent with inflammatory infectious colitis with suspected associated diarrheal disease. No evidence for diverticulitis. No free intraperitoneal fluid or pneumoperitoneum. Electronically signed by: Carlos Galan MD 10/16/23 23:21 PM PG Care Time/CCT Total # of Minutes Spent Total Time Spent with Patient: Total time spent is greater than 50% in coordination of care (as documented) at patient's floor/unit and/or counseling patient: Coding Level of Care Code 31143 INT INP/OBS CARE MIN Diagnoses Diarrhea, unspecified type R19.7 Diarrhea type: unspecified type Right lower quadrant abdominal pain R10.31 Abdominal location: right lower quadrant Anemia D64.9 Anemia type: unspecified type YAKOV (acute kidney injury) N17.[address] elevation myocardial infarction (STEMI), unspecified artery I21.3 Involved coronary artery: unspecified coronary artery Weight loss, non-intentional R63.4 (1) Diarrhea Diarrhea type: unspecified type Qualified Code(s): R19.7 - Diarrhea, unspecified (2) Abdominal pain Abdominal location: right lower quadrant Qualified Code(s): R10.31 - Right lower quadrant pain (3) Anemia Anemia type: unspecified type Qualified Code(s): D64.9 - Anemia, unspecified (6) STEMI (ST elevation myocardial infarction) Involved coronary artery: unspecified coronary artery Qualified Code(s): I21.3 - ST elevation (STEMI) myocardial infarction of unspecified site
[2023-10-17] MEDS: SODIUM CHLORIDE 0.9% 1,000 ML IV SCH (14:55)
[2023-10-17] MEDS: ACETAMINOPHEN 325 MG TAB PO SCH (20:14)
[2023-10-17] MEDS: ATORVASTATIN 40 MG TAB PO SCH (20:15)
[2023-10-17] MEDS: LORazepam 0.5 MG TAB PO SCH (20:18)
[2023-10-18 07:30] LABS: Basophils # (auto) 0.03 K/uL (0.00-0.20); Basophils % (auto) 0.8 %; Eosinophils # (auto) 0.16 K/uL (0.00-0.50); Eosinophils % (auto) 4.4 %; Hematocrit (blood only) 26.6 % (37.0-47.0); Hemoglobin 8.8 g/dl (12.0-16.0); Immature Granulocytes # (auto) 0.01 K/uL (0.01-0.20); Immature Granulocytes % (auto) 0.3 %; Lymphocytes % (auto) 27.5 %; Mean Corpuscular Hemoglobin 28.5 pg (25.0-34.0); Mean Corpuscular Hgb Conc 33.1 g/dL (32.0-36.0); Mean Corpuscular Volume 86.1 fL (80.0-100.0); Mean Platelet Volume 9.9 fL (9.4-12.4); Monocytes # (auto) 0.59 K/uL (0.11-0.59); Monocytes % (auto) 16.3 %; Neutrophils # (auto) 1.84 K/uL (1.40-6.50); Neutrophils % (auto) 50.7 %; Platelet Count 185 K/uL (130-400); RDW Coefficient of Variation 13.8 % (11.5-14.5); RDW Standard Deviation 43.9 fL (36.4-46.3); Red Blood Count 3.09 M/uL (4.20-5.40); White Blood Count 3.63 K/ul (4.8-10.8)
[2023-10-18 07:40] LABS: BUN Creatinine Ratio 27.7 (10-20); Calcium 8.4 mg/dl (8.6-10.3); Creatinine Clr Calc Pharmacy 45.6 ml/min; Est GFR (African American) 67.8 ml/min; Est GFR (Non-African American) 58.5 ml/min; Potassium 3.3 mmol/L (3.5-5.1)
[2023-10-18] MEDS: POTASSIUM CHLORIDE CRTAB 20 MEQ TABCR PO STA (08:18)
--- NOTE | 2023-10-18 12:49 | Hospitalist Progress Note ---
Date of Service October 18, 2023 Assessment & Plan (1) Diarrhea: Plan: 78yo female with chronic diarrhea ongoing x 2 months. Patient with evidence of dehydration, mild YAKOV. -CT scan of abdomen and pelvis done showed prominent fluid throughout the colon with hyperenhancement and mild thickening of the mucosa, consistent with inflammatory infectious colitis Infectious workup is NEGATIVE. -Patient continues to have about 6-7 episodes of diarrhea daily, Imodium is not helping. Willing to try p.o. morphine -Shuttleless Loom Weaver on consult, Plan is for colonoscopy on 10/20/2023 No plans to hold Brilinta -IVF and electrolyte repletion as needed -Will limit lactose for now -Continue Imodium -Stool calprotectin is pending -Check stool Giardia -Check stool FOBT (2) YAKOV (acute kidney injury): Plan: Normal now resolved -Repeat chemistry in AM -Avoid nephrotoxic agents -Renal dosing (3) History of CAD (coronary artery disease): Plan: CAD s/p STEMI with MAUREEN placed to LCx in March 2023. Also with 80% small distal LAD disease being medically managed. Patient is on ASA and Brillinta. Follows with Cardiology. Denies chest pain, palpitations or SOB -Continue ASA and Brillinta, No plans to hold Brilinta for planned colonoscopy -Continue Metoprolol -Continue Atorvastatin -Continue Isosorbide moninitrate Plan Continue hospitalization, plan is for colonoscopy on 10/20/2023 Depression - chronic, stable -Continue Celexa Diabetes - chronic -Lantus 5u qAM -ISS -Continue Neurontin GERD - chronic -Continue Protonix ROMAN - chronic -CPAP qHS Admission and Anticipated Discharge Date Admission Date: October 17, 2023 Subjective Patient seen and examined, Sitting up in the chair, just 1 episode of diarrhea today. Review of Systems Review of Systems: All systems reviewed are negative, apart from the ones contained in the history. Physical Exam Physical Exam: The patient is awake, alert and oriented 3, well developed and well nourished, normocephalic and atraumatic, lying in bed and in no acute distress. HEENT--PERRL, EOMI, mucous membranes and oropharynx mildly dry Neck--supple. No JVD. No bruits. Thyroid normal, trachea midline, no adenopathy. Heart--normal S1 and S2. No murmurs, rubs or gallops. Lungs--clear bilaterally, no respiratory distress, no accessory muscle use. Abdomen--normal bowel sounds and soft. Extremities--no cyanosis or clubbing. No edema. Dermatologic--normal skin turgor, normal color, no abnormal lymph nodes, no rash. Neurologic--cranial nerves II through XII grossly intact. Rheumatologic--normal range of motion. Psychiatric--normal affect. Results & Data Results & Data Vital Signs (Past 12 Hours) Vital Signs Temp Pulse Resp BP Pulse Ox O2 Del Method O2 Flow Rate 10/18/23 07:16 98.1 F 84 16 155/77 H 97 Room Air 10/18/23 04:01 19 10/18/23 00:50 Room Air, Nasal Cannula, CPAP 2 FiO2 10/18/23 07:16 10/18/23 04:01 21 10/18/23 00:50 PG Care Time/CCT Total # of Minutes Spent Total Time Spent with Patient: Total time spent is greater than 50% in coordination of care (as documented) at patient's floor/unit and/or counseling patient: Coding Level of Care Code 76731 SUB INP/OBS CARE 2/35MIN Diagnoses Diarrhea, unspecified type R19.7 Diarrhea type: unspecified type YAKOV (acute kidney injury) N17.9 History of CAD (coronary artery disease) Z86.79 Time Spent (min) 35 (1) Diarrhea Diarrhea type: unspecified type Qualified Code(s): R19.7 - Diarrhea, unspecified
[2023-10-19 08:17] LABS: BUN Creatinine Ratio 20.8 (10-20); Calcium 8.5 mg/dl (8.6-10.3); Creatinine Clr Calc Pharmacy 59.6 ml/min; Est GFR (African American) 93.6 ml/min; Est GFR (Non-African American) 80.8 ml/min; Potassium 3.5 mmol/L (3.5-5.1)
[2023-10-19 08:43] LABS: Hematocrit (blood only) 29.2 % (37.0-47.0); Hemoglobin 9.5 g/dl (12.0-16.0); Mean Corpuscular Hemoglobin 28.4 pg (25.0-34.0); Mean Corpuscular Hgb Conc 32.5 g/dL (32.0-36.0); Mean Corpuscular Volume 87.2 fL (80.0-100.0); Platelet Count 228 K/uL (130-400); RDW Coefficient of Variation 13.6 % (11.5-14.5); RDW Standard Deviation 43.3 fL (36.4-46.3); Red Blood Count 3.35 M/uL (4.20-5.40); White Blood Count 3.97 K/ul (4.8-10.8)
--- NOTE | 2023-10-19 10:56 | Hospitalist Progress Note ---
Date of Service October 19, 2023 Assessment & Plan (1) Diarrhea: Plan: 78yo female with chronic diarrhea ongoing x 2 months. Patient with evidence of dehydration, mild YAKOV. -CT scan of abdomen and pelvis done showed prominent fluid throughout the colon with hyperenhancement and mild thickening of the mucosa, consistent with inflammatory infectious colitis Infectious workup is NEGATIVE. -Patient continues to have about 6-7 episodes of diarrhea daily, Imodium is not helping. Willing to try p.o. morphine -Optometrist/Practice Owner on consult, Plan is for colonoscopy on 10/20/2023 No plans to hold Brilinta -IVF and electrolyte repletion as needed -Will limit lactose for now -Continue Imodium And morphine, which seem to be working for now, only 1 episode of diarrhea today. -Stool calprotectin is pending - (2) YAKOV (acute kidney injury): Plan: Normal now resolved -Repeat chemistry in AM -Avoid nephrotoxic agents -Renal dosing (3) History of CAD (coronary artery disease): Plan: CAD s/p STEMI with MAUREEN placed to LCx in March 2023. Also with 80% small distal LAD disease being medically managed. Patient is on ASA and Brillinta. Follows with Cardiology. Denies chest pain, palpitations or SOB -Continue ASA and Brillinta, No plans to hold Brilinta for planned colonoscopy -Continue Metoprolol -Continue Atorvastatin -Continue Isosorbide moninitrate Plan Continue hospitalization, plan is for colonoscopy on 10/20/2023 Depression - chronic, stable -Continue Celexa Diabetes - chronic -Lantus 5u qAM -ISS -Continue Neurontin GERD - chronic -Continue Protonix ROMAN - chronic -CPAP qHS Admission and Anticipated Discharge Date Admission Date: October 17, 2023 Subjective Patient seen and examined, Sitting up in the chair, just 1 episode of diarrhea today. Review of Systems Review of Systems: All systems reviewed are negative, apart from the ones contained in the history. Physical Exam Physical Exam: The patient is awake, alert and oriented 3, well developed and well nourished, normocephalic and atraumatic, lying in bed and in no acute distress. HEENT--PERRL, EOMI, mucous membranes and oropharynx mildly dry Neck--supple. No JVD. No bruits. Thyroid normal, trachea midline, no adenopathy. Heart--normal S1 and S2. No murmurs, rubs or gallops. Lungs--clear bilaterally, no respiratory distress, no accessory muscle use. Abdomen--normal bowel sounds and soft. Extremities--no cyanosis or clubbing. No edema. Dermatologic--normal skin turgor, normal color, no abnormal lymph nodes, no rash. Neurologic--cranial nerves II through XII grossly intact. Rheumatologic--normal range of motion. Psychiatric--normal affect. Results & Data Results & Data Vital Signs (Past 12 Hours) Vital Signs Temp Pulse Resp BP Pulse Ox O2 Del Method 10/19/23 09:20 98.6 F 84 16 160/78 H 97 Room Air PG Care Time/CCT Total # of Minutes Spent Total Time Spent with Patient: Total time spent is greater than 50% in coordination of care (as documented) at patient's floor/unit and/or counseling patient: Coding Level of Care Code 31700 SUB INP/OBS CARE 2/35MIN Diagnoses Diarrhea, unspecified type R19.7 Diarrhea type: unspecified type YAKOV (acute kidney injury) N17.9 History of CAD (coronary artery disease) Z86.79 Time Spent (min) 35 (1) Diarrhea Diarrhea type: unspecified type Qualified Code(s): R19.7 - Diarrhea, unspecified
--- NOTE | 2023-10-19 11:27 | Gastroenterology Progress Note ---
Date of Service October 19, 2023 Assessment & Plan (1) Diarrhea: Plan: 78 year old female with history of CAD s/p STEMI in March 2023 on ASA and Brillinta, HTN, DM II, Previous C. difficile infection, and ROMAN presenting from [facility] on 09/24/2023 due to approximately 3 weeks of ongoing diarrhea and abdominal pain w/ plan for colonoscopy on 10/19 As she has been maintained on anti-platelet therapy, pending on colonoscopy findings, a repeat examiantion may be warranted for removal of polyps etc Clear liquids today Golytely prep NPO midnight Colonoscopy 10/20/23 We appreciate assistance in the management of any serological abnormality and corrections to include: hemoglobin >7, INR <2, platelets >50,000, potassium levels >3.5 but <5.3, and sodium levels within 5 points of the reference range prior to endoscopic evaluation. I spent a total of 40 minutes on the date of service in review of patient's record, and previously obtained information in person and appropriate medical visit, discussion and education of plan, with patient and/or caregiver, placing orders for tests/referral/procedures as medically necessary and documentation of pertinent clinical information in patient's medical records for their visit today. Admission and Anticipated Discharge Date Admission Date: October 17, 2023 Supervising Physician Co-Signing Physician Notes I personally saw and examined the patient. I have reviewed the chart and agree with the documentation provided by the FULL STACK DEVELOPER including discussion about the assessment, treatment and plan. Briefly, 78 year old female with history of CAD s/p STEMI in March 2023 on ASA and Brillinta, HTN, DM II, Previous C. difficile infection, and ROMAN presenting from [facility] on 09/24/2023 due to approximately 3 weeks of ongoing diarrhea and abdominal pain w/ plan for colonoscopy on 10/19. Spoke with her that will not remove large polyps. Colon in am. Subjective Pt was seen and evaluated, chart reviewed. Wants to move forward with a diagnostic colonoscopy tomorrow. Discussed that while on AC, exam may need to repeated in future. Review of Systems Review of Systems: All other findings negative except as noted in HPI. Physical Exam Constitutional: WD/WN, vitals as above Cardiovascular: Rate/Rhythm: regular rate and regular rhythm Gastrointestinal (Abdomen): normal bowel sounds, soft, nontender, no hepatosplenomegaly Skin: no rashes, warm and dry Results & Data Results & Data Vital Signs (Past 12 Hours) Vital Signs Temp Pulse Resp BP Pulse Ox O2 Del Method 10/19/23 09:20 37.0 C 84 16 160/78 H 97 Room Air Laboratory Results 10/19/23 10/19/23 10/18/23 Range/Units 07:51 07:07 20:39 WBC 3.97 L (4.8-10.8) K/ul RBC 3.35 L (4.20-5.40) M/uL Hgb 9.5 L (12.0-16.0) g/dl Hct 29.2 L (37.0-47.0) % MCV 87.2 (80.0-100.0) fL MCH 28.4 (25.0-34.0) pg MCHC 32.5 (32.0-36.0) g/dL RDW Std Deviation 43.3 (36.4-46.3) fL RDW Coeff of Brian 13.6 (11.5-14.5) % Plt Count 228 (130-400) K/uL MPV 10.0 (9.4-12.4) fL Sodium 140 (136-145) mmol/L Potassium 3.5 (3.5-5.1) mmol/L Chloride 116 H (98-107) mmol/L Carbon Dioxide 17 L (21-32) mmol/L Anion Gap 7 (3-11) BUN 15 (6-23) mg/dl Creatinine 0.72 (0.6-1.2) mg/dl Est Cr Clr Drug Dosing 59.6 ml/min Est GFR ( Amer) 93.6 ml/min Est GFR (Non-Af Amer) 80.8 ml/min BUN/Creatinine Ratio 20.8 H (10-20) Glucose 93 (70-99(Fasting)) mg/dl POC Glucose 100 H 131 H (70-99) mg/dl Calcium 8.5 L (8.6-10.3) mg/dl Giardia Antigen 10/18/23 10/18/23 10/17/23 Range/Units 16:35 11:32 02:00 WBC (4.8-10.8) K/ul RBC (4.20-5.40) M/uL Hgb (12.0-16.0) g/dl Hct (37.0-47.0) % MCV (80.0-100.0) fL MCH (25.0-34.0) pg MCHC (32.0-36.0) g/dL RDW Std Deviation (36.4-46.3) fL RDW Coeff of Brian (11.5-14.5) % Plt Count (130-400) K/uL MPV (9.4-12.4) fL Sodium (136-145) mmol/L Potassium (3.5-5.1) mmol/L Chloride (98-107) mmol/L Carbon Dioxide (21-32) mmol/L Anion Gap (3-11) BUN (6-23) mg/dl Creatinine (0.6-1.2) mg/dl Est Cr Clr Drug Dosing ml/min Est GFR ( Amer) ml/min Est GFR (Non-Af Amer) ml/min BUN/Creatinine Ratio (10-20) Glucose (70-99(Fasting)) mg/dl POC Glucose 133 H 127 H (70-99) mg/dl Calcium (8.6-10.3) mg/dl Giardia Antigen SEE NOTE PG Care Time/CCT Total # of Minutes Spent Total Time Spent with Patient: Total time spent is greater than 50% in coordination of care (as documented) at patient's floor/unit and/or counseling patient: Coding Level of Care Code 31160 SUB INP/OBS CARE 2/35MIN Diagnoses Diarrhea R19.7 Diarrhea type: unspecified type (1) Diarrhea Diarrhea type: unspecified type Qualified Code(s): R19.7 - Diarrhea, unspecified
[2023-10-19] MEDS: LAVAGE SOLUTION 4000ML PO SCH (13:43)
[2023-10-19] MEDS: ONDANSETRON INJ 2 MG/ML 2 ML VIAL IV PRN (15:37)
--- NOTE | 2023-10-20 08:48 | Hospitalist Progress Note ---
Date of Service October 20, 2023 Assessment & Plan (1) Diarrhea: Plan: 78yo female with chronic diarrhea ongoing x 2 months. ?microscopic colitis, ?crohns vs malignancy? Patient with evidence of dehydration, mild YAKOV. -CT scan of abdomen and pelvis done showed prominent fluid throughout the colon with hyperenhancement and mild thickening of the mucosa, consistent with inflammatory infectious colitis Infectious workup is NEGATIVE. -Patient continues to have about 6-7 episodes of diarrhea daily, Imodium is not helping. Willing to try p.o. morphine -Manufacturing Development Engineer on consult, Plan is for colonoscopy on 10/20/2023 No plans to hold Brilinta -IVF and electrolyte repletion as needed -Will limit lactose for now -Continue Imodium And morphine, which seem to be working for now, only 1 episode of diarrhea today. -Stool calprotectin is pending 10/19 NPO for colonoscopy this morning with Dr Thompson * C-scope noting non-bleeding hemorrhoids during retroflexion. Terminal ileum normal. Few small mouthed diverticula were found in the sigmoid colon. Biopsies for history taken from entire colon for eval of mircoscopic colitis given mildly edematous colon throughout microscopic colitis cannot be ruled out. * Will need outpt f/u biopsies * Consideration for cholestyramine 4gm BID if diarrhea persists D5 NS @ 20meq x 1 L ordered while NPO given CO2/diarrheal losses and DM II Mag 1.4, IV replacement ordered. K 3.1, PO replacement ordered Diet advancement as tolerated Stool calprotectin level pending added iron panel given anemia for further eval as well as appears Hgb in 11-12s prior to Mar this year (however has been on aspirin/brillinta for her hx STEMI in Mar 2023 w/ MAUREEN to LCx) Monitor labs/exam on repeat but possible dc if feeling well/electrolytes stable (2) YAKOV (acute kidney injury): Plan: Cr 1.41 on admission, suspected 2nd to dehydration from diarrheal lossess IVF/electrolyte replacement Home lisinopril on hold on admission Renal dose meds/avoid nephrotoxins Resuming lisinopril 40mg PO daily for AM as long as renal function acceptable but held off for today given NPO for c-scope/anesthesia as above BMP in AM (3) History of CAD (coronary artery disease): Plan: CAD s/p STEMI with MAUREEN placed to LCx in March 2023. Also with 80% small distal LAD disease being medically managed. Patient is on ASA and Brillinta. Follows with Cardiology. Denies chest pain, palpitations or SOB -Continue ASA and Brillinta, No plans to hold Brilinta for planned colonoscopy Continue Metoprolol, atorvastatin, ISMN No CP reported/SOB (4) Hypomagnesemia: Plan: 1.4 on labs, IV replacement ordered. ?diarrhea, PPI use Monitor mag in AM, if remains low consider starting on SLOW mag (5) Hypokalemia: Plan: low, replacement ordered lisinopril to resume in AM, not on any diuretics BMP in AM Plan Chronic medical problems Depression - chronic, stable. continues citalopram Diabetes - chronic, Lantus 5U QAM (held for this morning while NPO, BSG 90s). BSG AC/HS, sliding scale insulin DM diet resumed following c-scope Remains on gabapentin, check B12 w/ AM labs given borderline earlier this year GERD - chronic. Continues on protonix daily. No increased issues reported/monitor ROMAN - chronic, CPAP HS Dispo: continued inpatient stay following c-scope, electrolyte replacement/diet advancement as tolerated. Monitor for cholesytramine need, will need f/u biopsies From [facility], will order PT/OT evals to ensure no needs at dc but if no needs can dc in next 24-48hours pending status overnight Admission and Anticipated Discharge Date Admission Date: October 17, 2023 Supervising Physician Co-Signing Physician Notes The patient was not seen by me. The chart was reviewed. Case discussed with ABISAI Stoner. Agree with assessment and plan Subjective Evaluated following c-scope.. Some cramping but no overt pain. Would like some ice water. Discussed c-scope and biopsies taken and will take some time for results. Electrolyte replacement ordered. Patient inquiring about possible dc if feeling well tomorrow and will see how she is doing w/ advancement of diet/hydration status. Questions/concerns addressed at this time. Physical Exam Physical Exam: 78yo female laying in bed post-colonosco py, NAD and thirsty Head atraumatic, mm slightly dry, trachea midline Resp: even/unlabored, no w/c/r, slightly diminished in the bases, on room air CV: RRR, no significant m/r/g, trace pedal edema, calves nontender GI: +BS, soft/NT ; no denise MSK/Neuro: nonfocal, not confused, answering questions appropriately Psych: AOx3, cooperative . Results & Data Results & Data Vital Signs (Past 12 Hours) Vital Signs Temp Pulse Resp BP Pulse Ox O2 Del Method 10/20/23 07:20 36.8 C 81 18 146/68 H 97 Room Air Laboratory Results 10/20/23 10/20/23 10/20/23 Range/Units 12:01 08:26 07:25 WBC 3.74 L (4.8-10.8) K/ul RBC 3.13 L (4.20-5.40) M/uL Hgb 8.9 L (12.0-16.0) g/dl Hct 26.9 L (37.0-47.0) % MCV 85.9 (80.0-100.0) fL MCH 28.4 (25.0-34.0) pg MCHC 33.1 (32.0-36.0) g/dL RDW Std Deviation 43.8 (36.4-46.3) fL RDW Coeff of Brian 13.8 (11.5-14.5) % Plt Count 214 (130-400) K/uL MPV 10.0 (9.4-12.4) fL Sodium 143 (136-145) mmol/L Potassium 3.1 L (3.5-5.1) mmol/L Chloride 119 H (98-107) mmol/L Carbon Dioxide 17 L (21-32) mmol/L Anion Gap 7 (3-11) BUN 8 (6-23) mg/dl Creatinine 0.70 (0.6-1.2) mg/dl Est Cr Clr Drug Dosing 61.3 ml/min Est GFR ( Amer) 96.9 ml/min Est GFR (Non-Af Amer) 83.6 ml/min BUN/Creatinine Ratio 11.4 (10-20) Glucose 74 (70-99(Fasting)) mg/dl POC Glucose 89 89 (70-99) mg/dl Calcium 8.2 L (8.6-10.3) mg/dl Magnesium 1.4 L (1.7-2.4) mg/dl Iron 53 (35-150) mcg/dl TIBC 257 (250-450) mcg/dl Unsaturated IBC 204 (155-355) mcg/dl Transferrin % Sat 21 (15-50) % Ferritin 68.6 (8-388) ng/ml 10/19/23 10/19/23 Range/Units 20:34 16:43 WBC (4.8-10.8) K/ul RBC (4.20-5.40) M/uL Hgb (12.0-16.0) g/dl Hct (37.0-47.0) % MCV (80.0-100.0) fL MCH (25.0-34.0) pg MCHC (32.0-36.0) g/dL RDW Std Deviation (36.4-46.3) fL RDW Coeff of Brian (11.5-14.5) % Plt Count (130-400) K/uL MPV (9.4-12.4) fL Sodium (136-145) mmol/L Potassium (3.5-5.1) mmol/L Chloride (98-107) mmol/L Carbon Dioxide (21-32) mmol/L Anion Gap (3-11) BUN (6-23) mg/dl Creatinine (0.6-1.2) mg/dl Est Cr Clr Drug Dosing ml/min Est GFR ( Amer) ml/min Est GFR (Non-Af Amer) ml/min BUN/Creatinine Ratio (10-20) Glucose (70-99(Fasting)) mg/dl POC Glucose 206 H 125 H (70-99) mg/dl Calcium (8.6-10.3) mg/dl Magnesium (1.7-2.4) mg/dl Iron (35-150) mcg/dl TIBC (250-450) mcg/dl Unsaturated IBC (155-355) mcg/dl Transferrin % Sat (15-50) % Ferritin (8-388) ng/ml PG Care Time/CCT Total # of Minutes Spent Total Time Spent with Patient: Total time spent is greater than 50% in coordination of care (as documented) at patient's floor/unit and/or counseling patient: Coding Level of Care Code 62076 SUB INP/OBS CARE 3/50MIN Diagnoses Diarrhea, unspecified type R19.7 Diarrhea type: unspecified type YAKOV (acute kidney injury) N17.9 History of CAD (coronary artery disease) Z86.79 Hypomagnesemia E83.42 Hypokalemia E87.6 (1) Diarrhea Diarrhea type: unspecified type Qualified Code(s): R19.7 - Diarrhea, unspecified
--- NOTE | 2023-10-20 09:00 | Gastroenterology Progress Note ---
Date of Service October 20, 2023 Assessment & Plan (1) Diarrhea: Plan: 78 year old female with history of CAD s/p STEMI in March 2023 on ASA and Brillinta, HTN, DM II, Previous C. difficile infection, and ROMAN presenting from [facility] on 09/24/2023 due to approximately 3 weeks of ongoing diarrhea and abdominal pain w/ plan for colonoscopy today As she has been maintained on anti-platelet therapy, pending on colonoscopy findings, a repeat examination may be warranted for removal of polyps etc Maintain NPO status Colonoscopy today We appreciate assistance in the management of any serological abnormality and corrections to include: hemoglobin >7, INR <2, platelets >50,000, potassium levels >3.5 but <5.3, and sodium levels within 5 points of the reference range prior to endoscopic evaluation. Admission and Anticipated Discharge Date Admission Date: October 17, 2023 Supervising Physician Co-Signing Physician Notes I personally saw and examined the patient. I have reviewed the chart and agree with the documentation provided by the COLLEGE FOOTBALL COACH including discussion about the assessment, treatment and plan. Colonoscopy today for persistent diarrhea with negative cultures multiple. will do on birllinta. Subjective Pt was seen and evaluated, chart reviewed. No acute events noted overnight. Tolerated about 75% of bowel preparation. Notes her stools are liquid and clear. Did not see any black or blood with bowel prep. Endorses lower abdominal "fullness" and occasional cramping. Infectious stool studies negative Fecal calprotectin is pending Review of Systems Review of Systems: All other findings negative except as noted in HPI. Physical Exam Constitutional: WD/WN, vitals as above Respiratory: normal respiratory effort, lungs clear to auscultation Cardiovascular: Rate/Rhythm: regular rate and regular rhythm Gastrointestinal (Abdomen): normal bowel sounds, soft, nontender, no hepatosplenomegaly Skin: no rashes, warm and dry Results & Data Results & Data Vital Signs (Past 12 Hours) Vital Signs Temp Pulse Resp BP Pulse Ox O2 Del Method 10/20/23 07:20 36.8 C 81 18 146/68 H 97 Room Air PG Care Time/CCT Total # of Minutes Spent Total Time Spent with Patient: Total time spent is greater than 50% in coordination of care (as documented) at patient's floor/unit and/or counseling patient: Coding Level of Care Code None Diagnoses Diarrhea R19.7 Diarrhea type: unspecified type (1) Diarrhea Diarrhea type: unspecified type Qualified Code(s): R19.7 - Diarrhea, un specified
[2023-10-20] MEDS: SODIUM CHLORIDE 0.9% 500 ML IV SCH (09:11)
--- NOTE | 2023-10-20 09:39 | Anesthesiology Consultation ---
Date of Service October 20, 2023 Assessment & Plan Chart Review Chart Review: Acceptable Risk for Surgery, Patient NOT seen in Pre Admission Testing and pharmacy order entry technician initiated Consults Requested none ASA ASA3 Proposed Anesthesia Anesthesia Type: MAC Risk / Benefits Reviewed With: PT / POA / Parent / Guardian, Accepts Plan and Informed Consent Obtained History Surgery Operation Date: 10/20/23 16:30 Proposed Procedures p Colonoscopy Donna - Cj Thompson MD Height/Weight Height: 5 ft Weight: 75.9 kg Allergies Allergy/AdvReac Type Severity Reaction Status Date / Time latex Allergy Mild ON [facility] Verified 10/16/23 23:34 LIST-per patient- thinks rash niacin Allergy Unknown ON [facility] Verified 10/16/23 23:34 [From citizenmade LIST Extended-Release] simvastatin Allergy Unknown ON Verified 10/16/23 23:34 [facility] LIST- unsure Medications Home Medications Medication Instructions Recorded Confirmed Last Taken glucose 4 gram chewable tablet 1 tab PO DAILY PRN HYPOGLYCEMIA 11/26/17 10/16/23 Unknown tolterodine 2 mg tablet 2 mg PO BID 11/26/17 10/16/23 10/16/23 07:30 acetaminophen 325 mg tablet 650 mg PO Q6H PRN Fever Or Pain 06/12/18 10/16/23 10/18/20 20:30 (Tylenol) nystatin 100,000 unit/gram topical 1 applic topical BID PRN RASH IN 11/24/22 10/16/23 Unknown cream ABD FOLDS NEEDED pen needle, diabetic, safety 30 #100 ea 01/12/23 09/29/23 Unknown gauge x 1/3" (Novofine Autocover) methenamine hippurate 1 gram tablet 1 g PO Q12H #180 tabs 02/12/23 10/16/23 10/16/23 07:30 spironolactone 25 mg tablet 25 mg PO BID #60 tabs 03/20/23 10/16/23 10/16/23 07: 30 metoprolol tartrate 50 mg tablet 50 mg PO BID #60 tabs 04/08/23 10/16/23 10/16/23 07:30 ticagrelor 90 mg tablet (Brilinta) 90 mg PO BID #60 tabs 04/08/23 10/16/23 10/16/23 07:30 citalopram 20 mg tablet 20 mg PO QAM 05/09/23 10/16/23 10/16/23 fluorometholone 0.1 % eye 1 drp OPB DAILY 05/09/23 10/16/23 10/16/23 drops,suspension hydrocortisone 1 % topical cream 1 applic topical BID PRN Rash 05/09/23 10/16/23 Unknown lisinopril 40 mg tablet 40 mg PO QAM 05/09/23 10/16/23 10/16/23 vit C 250 mg-vit E 90 mg-zinc 40 1 tab PO BID 05/09/23 10/16/23 10/16/23 07:30 mg-copper 1 qa-kycoao-lxzqty capsule (PreserVision AREDS-2) aspirin 81 mg tablet,delayed 81 mg PO QAM #30 tabs 05/10/23 10/16/23 10/16/23 release melatonin 10 mg capsule 10 mg PO HS sleep #30 caps 08/04/23 10/16/23 10/15/23 polyethylene glycol 3350 17 gram 17 g PO QAM PRN constipation #0 ea 08/27/23 10/16/23 05/09/23 oral powder packet gabapentin 100 mg capsule 100 mg PO TID #45 caps 08/28/23 10/16/23 10/16/23 15:00 insulin glargine 100 unit/mL (3 5 unit (0.05 mL) subcut QAM #3 mL 08/28/23 10/16/23 10/16/23 mL) subcutaneous pen (Lantus Solostar U-100 Insulin) timolol 0.5 % eye drops 1 drp OPB QAM #5 mL 08/31/23 10/16/23 10/16/23 flash glucose sensor (FreeStyle 09/08/23 09/29/23 Unknown [place] 2 Sensor kit) Qc Natural Veggie 95% Powder See Rx Instructions .Route .COMPLEX 09/24/23 10/16/23 Unknown atorvastatin 40 mg tablet 40 mg PO HS 09/24/23 10/16/23 10/15/23 dulaglutide 4.5 mg/0.5 mL 4.5 mg subcut WK 09/24/23 10/16/23 10/16/23 subcutaneous pen injector (Trulicity) isosorbide mononitrate 60 mg 60 mg PO QAM 09/24/23 10/16/23 10/16/23 tablet,extended release 24 hr nystatin 100,000 unit/gram topical 1 applic topical BID PRN Rash 09/24/23 10/16/23 Unknown powder pantoprazole 40 mg tablet,delayed 40 mg PO QAM 09/24/23 10/16/23 10/16/23 release quetiapine 25 mg tablet 25 mg PO QAM 09/24/23 10/16/23 10/16/23 Bifidobacterium infantis 10.5 mg 10.5 mg PO DAILY #20 tabs 09/26/23 10/16/23 10/16/23 (10 million cell) chewable tablet (Align) loperamide 2 mg capsule 4 mg (2 x 2 mg) PO Q4H PRN loose 09/26/23 10/16/23 Unknown stool #30 caps acetaminophen 325 mg tablet 650 mg PO HS 09/29/23 10/16/23 10/15/23 amoxicillin 500 mg capsule 2,000 mg PO DIRECTED PRN 1 HOUR 09/29/23 10/16/23 Unknown PRIOR TO DENTAL VISIT lorazepam 0.5 mg tablet 0.5 mg PO HS anxiety #30 tabs 09/29/23 10/16/23 10/15/23 Lift chair / recliner #1 ea 10/05/23 10/05/23 Unknown insulin lispro 100 unit/mL 3 unit subcut TIDM 10/16/23 10/16/23 10/16/23 subcutaneous pen (Humalog KwikPen (U-100) Insulin) Active Medications Generic Name Dose Route Start Last Admin Trade Name Donq PRN Reason Stop Dose Admin Acetaminophen 650 mg 10/17/23 21:00 10/19/23 21:11 Acetaminophen 325 Mg Tab PO 11/16/23 20:59 650 mg HS JASPER Administration Aspirin 81 mg 10/17/23 09:00 10/19/23 08:59 Aspirin 81 Mg Ectab PO 11/16/23 08:59 81 mg QAM JASPER Administration Atorvastatin Calcium 40 mg 10/17/23 21:00 10/19/23 21:12 Atorvastatin 40 Mg Tab PO 11/16/23 20:59 40 mg HS JASPER Administration Citalopram Hydrobromide 20 mg 10/17/23 09:00 10/19/23 09:00 Citalopram 20 Mg Tab PO 11/16/23 08:59 20 mg QAM JASPER Administration Gabapentin 100 mg 10/17/23 09:00 10/19/23 21:11 Gabapentin 100 Mg Cap PO 11/16/23 08:59 100 mg TID JASPER Administration Sodium Chloride 1,000 mls @ 100 mls/hr 10/17/23 14:30 10/20/23 02:27 Nss IV 11/16/23 14:29 100 mls/hr .Q10H JASPER Administration Sodium Chloride 500 mls @ 15 mls/hr 10/20/23 07:30 10/20/23 09:11 Nss IV 10/21/23 07:29 15 mls/hr .Q24H JASPER Administration Insulin Aspart 0 units 10/17/23 07:30 10/20/23 08:28 Insulin Aspart Per Unit Charge SC 11/16/23 07:29 Not Given ACHS JASPER Insulin Glargine 5 units 10/17/23 09:00 10/20/23 08:29 Lantus Per Unit Charge SQ 11/16/23 08:59 Not Given DAILY JASPER Isosorbide Mononitrate 60 mg 10/17/23 09:00 10/20/23 08:28 Isosorbide [place] Extended Rel 60 Mg Tabcr PO 11/16/23 08:59 60 mg QAM JASPER Administration Loperamide HCl 4 mg 10/17/23 03:56 10/18/23 22:05 Loperamide Hcl 2 Mg Cap PO 11/16/23 03:55 4 mg Q4H PRN Administration loose stool Lorazepam 0.5 mg 10/17/23 21:00 10/19/23 21:11 Lorazepam 0.5 Mg Tab PO 11/16/23 20:59 0.5 mg HS JASPER Administration Methenamine Hippurate 1 gm 10/17/23 01:54 10/19/23 21:12 Methenamine Hippurate 1 Gm Tab PO 11/16/23 01:53 1 gm BID@0730,2100 JASPER Administration Metoprolol Tartrate 50 mg 10/17/23 09:00 10/20/23 08:28 Metoprolol Tartrate 50 Mg Tab PO 11/16/23 08:59 50 mg BID JASPER Administration Ondansetron HCl 4 mg 10/17/23 01:54 10/19/23 15:37 Ondansetron Inj 2 Mg/Ml 2 Ml Vial IV 11/16/23 01:53 4 mg Q6H PRN Administration Nausea And Vomiting Pantoprazole Sodium 40 mg 10/17/23 09:00 10/19/23 09:04 Pantoprazole 40 Mg Tab PO 11/16/23 08:59 40 mg QAM JASPER Administration Polyethylene Glycol/Electrolytes 1 dose 10/19/23 14:00 10/19/23 13:43 Lavage Solution 4000ml PO 11/18/23 13:59 16 dose TODAY@1400 JASPER Administration Quetiapine Fumarate 25 mg 10/17/23 09:00 10/19/23 09:04 Quetiapine Fumarate 25 Mg Tablet PO 11/16/23 08:59 25 mg QAM JASPER Administration Ticagrelor 90 mg 10/17/23 09:00 10/19/23 21:11 Ticagrelor 90 Mg Tab PO 11/16/23 08:59 90 mg BID JASPER Administration NPO Date Last Intake of Fluids: 10/20/23 Time Last Intake of Fluids: 07:43 Date Last Intake of Solids: 10/17/23 Time Last Intake of Solids: 12:00 Past Medical History Medical History UTI (urinary tract infection) YAKOV (acute kidney injury) STEMI (ST elevation myocardial infarction) History of recurrent UTI (urinary tract infection) Insomnia Per records Neuropathy per patient- hands and feet Hypertension Per records History of macular degeneration Chronic back pain Diabetes mellitus, type 2 IDDM Neurogenic claudication due to lumbar spinal stenosis History of nephrolithiasis Nasal bone fracture Cholecystitis, acute Exercise / Class Metabolic Activity II 4-5 Yardwork/Stairs/Walk up hill Past Family History Family History Mother Breast cancer Aunt Colorectal cancer Diabetes Father Myocardial infarction Other No family history of adverse response to anesthesia No pertinent family history Denies family history of Ovarian cancer Prostate cancer Past Surgical History Surgical History Status post spinal surgery History of bilateral tubal ligation Hx of total knee arthroplasty bilateral S/P epidural steroid injection History of cholecystectomy History of colonoscopy History of cornea transplant bilateral History of cataract surgery bilateral History of appendectomy Past Anesthesia History No Hx of Anesthesia Complications and No Family Hx of Anesthesia Complications History of PONV No Hx of PONV and No Hx of Motion Sickness Social History Smoking Status: Former smoker tobacco type: cigarettes Smoking cigarettes per day: 2 packs/day Do You Dip or Chew Tobacco: No Hx Alcohol Use: No Hx Substance Use: No substance use type: does not use Physical Exam Vital Signs Last Vital Signs Temp 36.4 C L 10/20/23 09:13 Pulse 86 10/20/23 09:13 Resp 16 10/20/23 09:13 BP 173/69 H 10/20/23 09:13 Pulse Ox 97 10/20/23 09:13 O2 Del Method Room Air 10/20/23 09:13 O2 Flow Rate 2 10/18/23 00:50 FiO2 21 10/18/23 04:01 Constitutional WD/WN, vitals as above no acute distress Eyes PERRL, conjunctivae normal, anicteric sclerae ENMT Mouth: + dentures; no chipped teeth and no loose teeth Thyromental Distance: > or= 3.5 Finger Breadths Mallampati Class: III Neck trachea midline, no thyromegaly + thick neck Respiratory normal respiratory effort, lungs clear to auscultation normal respiratory effort; no respiratory distress Auscultation: lungs clear to auscultation bilaterally; no crackles, no rhonchi and no wheezes Cardiovascular RRR, no murmur, no edema Rate/Rhythm: regular rate and regular rhythm Heart Sounds: no gallop, no murmur and no cardiac rub Gastrointestinal (Abdomen) normal bowel sounds, soft, nontender, no hepatosplenomegaly Musculoskeletal Head/Neck/Chest: full ROM of neck Skin no rashes, warm and dry Neurologic moves all extremities and awake Psychiatric Orientation: alert and oriented x 3 Testing Laboratory Results 10/20/23 07:25 POC Glucose 89 Echocardiogram Date: 03/19/23 EF: 55-60
[2023-10-20 09:44] LABS: Hematocrit (blood only) 26.9 % (37.0-47.0); Hemoglobin 8.9 g/dl (12.0-16.0); Mean Corpuscular Hemoglobin 28.4 pg (25.0-34.0); Mean Corpuscular Hgb Conc 33.1 g/dL (32.0-36.0); Mean Corpuscular Volume 85.9 fL (80.0-100.0); Platelet Count 214 K/uL (130-400); RDW Coefficient of Variation 13.8 % (11.5-14.5); RDW Standard Deviation 43.8 fL (36.4-46.3); Red Blood Count 3.13 M/uL (4.20-5.40); White Blood Count 3.74 K/ul (4.8-10.8)
[2023-10-20 09:57] LABS: BUN Creatinine Ratio 11.4 (10-20); Calcium 8.2 mg/dl (8.6-10.3); Creatinine Clr Calc Pharmacy 61.3 ml/min; Est GFR (African American) 96.9 ml/min; Est GFR (Non-African American) 83.6 ml/min; Magnesium 1.4 mg/dl (1.7-2.4); Potassium 3.1 mmol/L (3.5-5.1)
[2023-10-20 10:16] LABS: Ferritin 68.6 ng/ml (8-388)
--- NOTE | 2023-10-20 11:01 | GI REPORT ---
[facility] Patient: SHENG SINGH : 1945 Sex at : Female Age: 78 Years Procedure: Colonoscopy Date: 10/20/2023 Attending Physician: Cj Thompson MD Referring MD: Armand Liz; Ceferino Perez Indications: - Chronic diarrhea Medications: - Monitored Anesthesia Care Complications: - No immediate complications., No immediate complications. Estimated blood loss: Minimal. Estimated Blood Loss: - Estimated blood loss was minimal. Procedure: - Prior to the procedure, a History and Physical was performed, and patient medications and allergies were reviewed. The patient's tolerance of previous anesthesia was also reviewed. The risks and benefits of the procedure and the sedation options and risks were discussed with the patient. All questions were answered, and informed consent was obtained. Prior Anticoagulants: The patient has taken no anticoagulant or antiplatelet agents [Days Prior to Procedure]. ASA Grade Assessment: III - A patient with severe systemic disease. After reviewing the risks and benefits, the patient was deemed in satisfactory condition to undergo the procedure. - The pediatric colonoscope was introduced through the anus and advanced to the terminal ileum, with identification of the appendiceal orifice and ileocecal valve. - The colonoscopy was performed without difficulty. - The patient tolerated the procedure well. - The quality of the bowel preparation was good. - The terminal ileum, ileocecal valve, appendiceal orifice, and rectum were photographed. Findings: - Non-bleeding hemorrhoids were found during retroflexion. The hemorrhoids were small. - The terminal ileum appeared normal. - The exam was otherwise without abnormality on direct and retroflexion views. - A few small-mouthed diverticula were found in the sigmoid colon. - Biopsies for histology were taken with a cold forceps from the entire colon for evaluation of microscopic colitis. Estimated blood loss was minimal. - Colon was mildly edematous throughout and microscopic colitis cannot be ruled out. Impression: - Colon was mildly edematous throughout and microscopic colitis cannot be ruled out. - Non-bleeding hemorrhoids. - The examined portion of the ileum was normal. - The examination was otherwise normal on direct and retroflexion views. - Diverticulosis in the sigmoid colon. - Biopsies were taken with a cold forceps from the entire colon for evaluation of microscopic colitis. Recommendation: - Discharge patient to home (ambulatory). - Resume previous diet. - Continue present medications. - Return to referring physician as previously scheduled. - Patient has a contact number available for emergencies. The signs and symptoms of potential delayed complications were discussed with the patient. Return to normal activities tomorrow. Written discharge instructions were provided to the patient. - No repeat colonoscopy due to current age (66 years or older). - If diarrhea persists, can start cholestyremine 4 gm twice daily Procedure Code(s): - 33360, Colonoscopy, flexible; with biopsy, single or multiple Diagnosis Code(s): - K64.9, Unspecified hemorrhoids - K57.30, Diverticulosis of large intestine without perforation or abscess without bleeding CPT(R) - 2023 copyright [employer]. All Rights Reserved. The CPT codes, CCI edits and ICD codes generated are intended as suggestions and were generated based on input data. These codes are preliminary and upon seat cover cutter review may be revised to meet current compliance and payer requirements. The provider is responsible for the final determination of appropriate codes, and modifiers. Cj Thompson MD This document has been electronically signed. Note Initiated:10/20/2023 Note Completed:10/20/2023 10:59 AM \\[id number]
[2023-10-20] MEDS: MAGNESIUM SULFATE / D5W 1 GM/100 ML BAG IV SCH (12:09)
[2023-10-20] MEDS: POTASSIUM CHLORIDE CRTAB 20 MEQ TABCR PO STA (12:15)
[2023-10-20] MEDS: PROPOFOL IV EMULSION 10 MG/ML 20 ML VIAL IV ONE (12:15)
[2023-10-20] MEDS: LIDOCAINE 2% 2 ML VIAL/AMP(20MG/ML) INFIL ONE (12:15)
--- NOTE | 2023-10-20 14:42 | Anesthesiology Progress Note ---
Date of Service October 20, 2023 Anesthesia Post Procedure Vital Signs Vital Signs: Temp Pulse Resp BP BP Pulse Ox O2 Del Method 10/20/23 12:19 36.8 C 81 18 162/73 H 97 Room Air 10/20/23 11:23 81 18 170/71 H 97 Room Air 10/20/23 11:08 82 18 151/80 H 98 Room Air 10/20/23 10:58 85 15 138/56 L 93 Room Air 10/20/23 09:13 36.4 C L 86 16 173/69 H 97 Room Air 10/20/23 07:20 36.8 C 81 18 146/68 H 97 Room Air 10/19/23 20:38 36.3 C L 82 18 114/73 99 Room Air 10/19/23 15:51 36.2 C L 75 18 138/71 100 Room Air Pain Intensity Abdomen: Pain Intensity: 3 Transfer of Care Handoff Completed per policy Notes Mental Status: alert / awake / arousable and participated in evaluation Patient Amnestic to Procedure: Yes Nausea / Vomiting: adequately controlled Pain: adequately controlled Airway Patency, RR, SpO2: stable & adequate BP & HR: stable & adequate Hydration State: stable & adequate Anesthetic Complications: no major complications apparent
[2023-10-20] MEDS: D5NSS + 20MEQ KCL 20 MEQ/1,000 ML BAG IV SCH (17:53)
[2023-10-21 07:58] LABS: Basophils # (auto) 0.04 K/uL (0.00-0.20); Basophils % (auto) 0.9 %; Eosinophils # (auto) 0.15 K/uL (0.00-0.50); Eosinophils % (auto) 3.5 %; Hematocrit (blood only) 28.5 % (37.0-47.0); Hemoglobin 9.3 g/dl (12.0-16.0); Immature Granulocytes # (auto) 0.02 K/uL (0.01-0.20); Immature Granulocytes % (auto) 0.5 %; Lymphocytes # (auto) 0.98 K/uL (1.20-3.40); Lymphocytes % (auto) 23.1 %; Mean Corpuscular Hemoglobin 28.3 pg (25.0-34.0); Mean Corpuscular Hgb Conc 32.6 g/dL (32.0-36.0); Mean Corpuscular Volume 86.6 fL (80.0-100.0); Mean Platelet Volume 9.9 fL (9.4-12.4); Monocytes # (auto) 0.47 K/uL (0.11-0.59); Monocytes % (auto) 11.1 %; Neutrophils # (auto) 2.59 K/uL (1.40-6.50); Neutrophils % (auto) 60.9 %; Platelet Count 211 K/uL (130-400); RDW Standard Deviation 44.3 fL (36.4-46.3); Red Blood Count 3.29 M/uL (4.20-5.40); White Blood Count 4.25 K/ul (4.8-10.8)
[2023-10-21 08:02] LABS: Albumin Globulin Ratio 1.4 (0.9-2); Albumin Level 3.4 gm/dl (3.4-5.0); Bilirubin,Total 0.4 mg/dl (0.2-1.0); Calcium 8.2 mg/dl (8.6-10.3); Est GFR (African American) 98.3 ml/min; Est GFR (Non-African American) 84.8 ml/min; Globulin 2.4 gm/dl (2.5-4.0); Magnesium 1.7 mg/dl (1.7-2.4); Potassium 3.2 mmol/L (3.5-5.1); Total Protein 5.8 gm/dl (6.0-8.3)
--- NOTE | 2023-10-21 08:05 | Hospitalist Progress Note ---
Date of Service October 21, 2023 Assessment & Plan (1) Diarrhea: Plan: 78yo female with chronic diarrhea ongoing x 2 months.Ddx:?microscopic colitis, ?crohns vs malignancy? Patient with evidence of dehydration, mild YAKOV on admission CT scan of abdomen and pelvis done showed prominent fluid throughout the colon with hyperenhancement and mild thickening of the mucosa, consistent with inflammatory infectious colitis Infectious workup is NEGATIVE. Patient continues to have about 6-7 episodes of diarrhea daily, Imodium is not helping. Willing to try p.o. morphine Home School Coordinator on consult, Plan is for colonoscopy on 10/20/2023. Limiting lactose Continue Imodium And morphine, which seem to be working for now, only 1 episode of diarrhea today. Stool calprotectin is pending 10/20 s/p C-scope with Dr Thompson 10/19 * C-scope noting non-bleeding hemorrhoids during retroflexion. Terminal ileum normal. Few small mouthed diverticula were found in the sigmoid colon. Biopsies for history taken from entire colon for eval of mircoscopic colitis given mildly edematous colon throughout microscopic colitis cannot be ruled out. * Will need outpt f/u biopsies * Consideration for cholestyramine 4gm BID if diarrhea persists Improved but NOW WORSE AGAIN overnight Diet advanced to lactose intolerant/DM II diet. ADDING QUESTRAN BID, monitor diarrhea Electrolytes improving but K still low. 40meq PO x 1 ordered. Mag wnl 1.7 -- suspect 2nd to diarrheal losses. CO2 improving and will monitor to add PO bicarb slow mag started and consider continuing at discharge over mag oxide to prevent diarrhea Stool calprotectin level pending. Celiac panel sent Path pending from c-scope - will need outpt f/u PT/OT evals pending to ensure able to return back to [facility] following to arrange transport Hopeful dc in AM (2) YAKOV (acute kidney injury): Plan: Cr 1.41 on admission, suspected 2nd to dehydration from diarrheal lossess IVF/electrolyte replacement, additional 1L IVF while NPO for scope as above Home lisinopril/spironolactone on hold on admission Cr resolved, lisinopril resumed 10/20 Renal function remaining stable and given hypokalemia/slight swelling resuming spironolactone and will monitor BMP in AM Renal dose meds/avoid nephrotoxins as able (3) History of CAD (coronary artery disease): Plan: CAD s/p STEMI with MAUREEN placed to LCx in March 2023. Also with 80% small distal LAD disease being medically managed. Patient is on ASA and Brillinta. Follows with Cardiology. Denies chest pain, palpitations or SOB Continues ASA and Brillinta, Continue Metoprolol, atorvastatin, ISMN No CP reported/SOB (4) Hypomagnesemia: Plan: 1.4 on labs, IV replacement ordered. ?diarrhea/PPI use Mg level IMPROVE/stable 1.7 however suspect w/ ongoing diarrhea will be low again and started ONCE DAILY slow MAG. Monitor to increase to BID/TID as needed (5) Hypokalemia: Plan: low, replacement ordered and improved but remains low, again suspect 2nd to diarrhea PO replacement ordered, lisinopril/spironolactone resumed as above BMP in AM Plan Chronic medical problems Depression - chronic, stable. continues citalopram. Support provided Diabetes - chronic, Lantus 5U QAM . BSG AC/HS, sliding scale insulin DM diet resumed following c-scope Remains on gabapentin, check B12 w/ AM labs given borderline earlier this year -- pending GERD - chronic. Continues on protonix daily. No increased issues reported/monitor and would hold off increasing to avoid worsning magnesium/possible cdiff (however cdiff/stool PCR negative) ROMAN - chronic, CPAP HS Dispo: continued inpatient stay, adding questran to see if assistance w/ diarrhea PT/OT evals ordered and to see today to ensure able to return to [facility] at pr If improvement w/ questran, likely dc in AM 10/21 Admission and Anticipated Discharge Date Admission Date: October 17, 2023 Supervising Physician Co-Signing Physician Notes The patient was not seen by me. The chart was reviewed. Case discussed with ABISAI Stoner. Agree with assessment and plan Subjective EValuated this morning, initially was feeling better last evening but then the diarrhea started back. Tearful as she was hopeful to avoid having this come back but has been ongoing for weeks. She reports generalized abdominal cramping. Discussed advancing diet but adding questran and monitoring response as well as slow mag. K replacement ordered as well. Discussed avoiding dairy/lactose as suspect this will make diarrhea worse. Bxs from c-scope pending. PT/OT consults pending to ensure able to return to [facility]. Possible dc in AM if improved. Physical Exam Physical Exam: 78yo female laying in bed, NAD but tearf ul in reporting ongoing diarrhea/unable to go home today Head atraumatic, mmm, trachea midline Resp: even/unlabored, no w/c/r, slightly diminished in the bases, on room air CV: RRR, no significant m/r/g, trace pedal edema, calves nontender GI: +BS, soft, generalized cramping reported but no overt tenderness/guarding/rebound ; no denise MSK/Neuro: nonfocal, not confused, answering questions appropriately Psych: AOx3, cooperative . Results & Data Results & Data Vital Signs (Past 12 Hours) Vital Signs Temp Pulse Resp BP Pulse Ox O2 Del Method 10/21/23 07:52 36.7 C 80 16 186/76 H 95 Room Air Laboratory Results 10/21/23 10/21/23 10/21/23 Range/Units 09:02 08:00 07:22 WBC 4.25 L (4.8-10.8) K/ul RBC 3.29 L (4.20-5.40) M/uL Hgb 9.3 L (12.0-16.0) g/dl Hct 28.5 L (37.0-47.0) % MCV 86.6 (80.0-100.0) fL MCH 28.3 (25.0-34.0) pg MCHC 32.6 (32.0-36.0) g/dL RDW Std Deviation 44.3 (36.4-46.3) fL RDW Coeff of Brian 14.0 (11.5-14.5) % Plt Count 211 (130-400) K/uL MPV 9.9 (9.4-12.4) fL Immature Gran % (Auto) 0.5 % Neut % (Auto) 60.9 % Lymph % (Auto) 23.1 % [place] % (Auto) 11.1 % Eos % (Auto) 3.5 % Baso % (Auto) 0.9 % Neut # (Auto) 2.59 (1.40-6.50) K/uL Lymph # (Auto) 0.98 L (1.20-3.40) K/uL [place] # (Auto) 0.47 (0.11-0.59) K/uL Eos # (Auto) 0.15 (0.00-0.50) K/uL Baso # (Auto) 0.04 (0.00-0.20) K/uL Immature Gran # (Auto) 0.02 (0.01-0.20) K/uL Sodium 142 (136-145) mmol/L Potassium 3.2 L (3.5-5.1) mmol/L Chloride 118 H (98-107) mmol/L Carbon Dioxide 18 L (21-32) mmol/L Anion Gap 6 (3-11) BUN 4 L (6-23) mg/dl Creatinine 0.67 (0.6-1.2) mg/dl Est Cr Clr Drug Dosing 64.0 ml/min Est GFR ( Amer) 98.3 ml/min Est GFR (Non-Af Amer) 84.8 ml/min BUN/Creatinine Ratio 6.0 L (10-20) Glucose 87 (70-99(Fasting)) mg/dl POC Glucose 96 (70-99) mg/dl Calcium 8.2 L (8.6-10.3) mg/dl Magnesium 1.7 (1.7-2.4) mg/dl Ferritin (8-388) ng/ml Total Bilirubin 0.4 (0.2-1.0) mg/dl AST 21 (13-39) U/L ALT 19 (7-52) U/L Alkaline Phosphatase 82 (34-104) U/L Total Protein 5.8 L (6.0-8.3) gm/dl Albumin 3.4 (3.4-5.0) gm/dl Globulin 2.4 L (2.5-4.0) gm/dl Albumin/Globulin Ratio 1.4 (0.9-2) Vitamin B12 Pending IgA Pending Tiss Transglutamin IgA Pending Celiac Disease Interp Pending 10/20/23 10/20/23 10/20/23 Range/Units 20:38 16:43 12:01 WBC (4.8-10.8) K/ul RBC (4.20-5.40) M/uL Hgb (12.0-16.0) g/dl Hct (37.0-47.0) % MCV (80.0-100.0) fL MCH (25.0-34.0) pg MCHC (32.0-36.0) g/dL RDW Std Deviation (36.4-46.3) fL RDW Coeff of Brian (11.5-14.5) % Plt Count (130-400) K/uL MPV (9.4-12.4) fL Immature Gran % (Auto) % Neut % (Auto) % Lymph % (Auto) % [place] % (Auto) % Eos % (Auto) % Baso % (Auto) % Neut # (Auto) (1.40-6.50) K/uL Lymph # (Auto) (1.20-3.40) K/uL [place] # (Auto) (0.11-0.59) K/uL Eos # (Auto) (0.00-0.50) K/uL Baso # (Auto) (0.00-0.20) K/uL Immature Gran # (Auto) (0.01-0.20) K/uL Sodium (136-145) mmol/L Potassium (3.5-5.1) mmol/L Chloride (98-107) mmol/L Carbon Dioxide (21-32) mmol/L Anion Gap (3-11) BUN (6-23) mg/dl Creatinine (0.6-1.2) mg/dl Est Cr Clr Drug Dosing ml/min Est GFR ( Amer) ml/min Est GFR (Non-Af Amer) ml/min BUN/Creatinine Ratio (10-20) Glucose (70-99(Fasting)) mg/dl POC Glucose 166 H 132 H 89 (70-99) mg/dl Calcium (8.6-10.3) mg/dl Magnesium (1.7-2.4) mg/dl Ferritin (8-388) ng/ml Total Bilirubin (0.2-1.0) mg/dl AST (13-39) U/L ALT (7-52) U/L Alkaline Phosphatase (34-104) U/L Total Protein (6.0-8.3) gm/dl Albumin (3.4-5.0) gm/dl Globulin (2.5-4.0) gm/dl Albumin/Globulin Ratio (0.9-2) Vitamin B12 IgA Tiss Transglutamin IgA Celiac Disease Interp 08/06/24 Range/Units 08:26 WBC (4.8-10.8) K/ul RBC (4.20-5.40) M/uL Hgb (12.0-16.0) g/dl Hct (37.0-47.0) % MCV (80.0-100.0) fL MCH (25.0-34.0) pg MCHC (32.0-36.0) g/dL RDW Std Deviation (36.4-46.3) fL RDW Coeff of Brian (11.5-14.5) % Plt Count (130-400) K/uL MPV (9.4-12.4) fL Immature Gran % (Auto) % Neut % (Auto) % Lymph % (Auto) % [place] % (Auto) % Eos % (Auto) % Baso % (Auto) % Neut # (Auto) (1.40-6.50) K/uL Lymph # (Auto) (1.20-3.40) K/uL [place] # (Auto) (0.11-0.59) K/uL Eos # (Auto) (0.00-0.50) K/uL Baso # (Auto) (0.00-0.20) K/uL Immature Gran # (Auto) (0.01-0.20) K/uL Sodium (136-145) mmol/L Potassium (3.5-5.1) mmol/L Chloride (98-107) mmol/L Carbon Dioxide (21-32) mmol/L Anion Gap (3-11) BUN (6-23) mg/dl Creatinine (0.6-1.2) mg/dl Est Cr Clr Drug Dosing ml/min Est GFR ( Amer) ml/min Est GFR (Non-Af Amer) ml/min BUN/Creatinine Ratio (10-20) Glucose (70-99(Fasting)) mg/dl POC Glucose (70-99) mg/dl Calcium (8.6-10.3) mg/dl Magnesium (1.7-2.4) mg/dl Ferritin 68.6 (8-388) ng/ml Total Bilirubin (0.2-1.0) mg/dl AST (13-39) U/L ALT (7-52) U/L Alkaline Phosphatase (34-104) U/L Total Protein (6.0-8.3) gm/dl Albumin (3.4-5.0) gm/dl Globulin (2.5-4.0) gm/dl Albumin/Globulin Ratio (0.9-2) Vitamin B12 IgA Tiss Transglutamin IgA Celiac Disease Interp PG Care Time/CCT Total # of Minutes Spent Total Time Spent with Patient: Total time spent is greater than 50% in coordination of care (as documented) at patient's floor/unit and/or counseling patient: Coding Level of Care Code 52449 SUB INP/OBS CARE 350MIN Diagnoses Diarrhea, unspecified type R19.7 Diarrhea type: unspecified type YAKOV (acute kidney injury) N17.9 History of CAD (coronary artery disease) Z86.79 Hypomagnesemia E83.42 Hypokalemia E87.6 (1) Diarrhea Diarrhea type: unspecified type Qualified Code(s): R19.7 - Diarrhea, unspecified
[2023-10-21] MEDS: POTASSIUM CHLORIDE CRTAB 20 MEQ TABCR PO STA (08:38)
[2023-10-21] MEDS: lisinopril 40 MG TAB PO SCH (08:40)
[2023-10-21] MEDS: MAGNESIUM CHLORIDE W/CALCIUM 64MG DELAYED REL TAB PO SCH (09:21)
[2023-10-21] MEDS: SPIRONOLACTONE 25 MG TAB PO SCH (10:16)
--- NOTE | 2023-10-21 10:32 | Gastroenterology Progress Note ---
Date of Service October 21, 2023 Assessment & Plan (1) Diarrhea: Plan: 78 year old female with history of CAD s/p STEMI in March 2023 on ASA and Brillinta, HTN, DM II, Previous C. difficile infection, and ROMAN presenting from [facility] EMS on 09/24/2023 due to approximately 4 weeks of ongoing diarrhea and abdominal pain w/ plan for colonoscopy today S/P colonoscopy, biopsies pending Titrate Questran 4G twice daily Can continue Imodium PRN Follow biopsies to guide treatment options I spent a total of 40 minutes on the date of service in review of patient's record, and previously obtained information in person and appropriate medical visit, discussion and education of plan, with patient and/or caregiver, placing orders for tests/referral/procedures as medically necessary and documentation of pertinent clinical information in patient's medical records for their visit today. Thank you for allowing us to participate in the care of this patient. Please call with any acute changes, questions or concerns. Please see addendum below with additional recommendation from my supervising physician. Admission and Anticipated Discharge Date Admission Date: October 17, 2023 Supervising Physician Co-Signing Physician Notes I personally saw and examined the patient. I have reviewed the chart and agree with the documentation provided by the BUS PERSON DISHWASHER including discussion about the assessment, treatment and plan. On questran bid and improved diarrhea. Await bx and if microscopic colitis, will do entocort vs prednisone given how debilitating diarrhea has been. Subjective S/P colonoscopy Biopsies pending Endorses 4 loose stools since she returned from colonoscopy No black or bloody stools Bx 2023: pending Colonoscopy 2023: - Non-bleeding hemorrhoids were found during retroflexion. The hemorrhoids were small. - The terminal ileum appeared normal. - The exam was otherwise without abnormality on direct and retroflexion views. - A few small-mouthed diverticula were found in the sigmoid colon. - Biopsies for histology were taken with a cold forceps from the entire colon for evaluation of microscopic colitis. Estimated blood loss was minimal. - Colon was mildly edematous throughout and microscopic colitis cannot be ruled out. Review of Systems Review of Systems: All other findings negative except as noted in HPI. Physical Exam Constitutional: WD/WN, vitals as above Respiratory: normal respiratory effort, lungs clear to auscultation Cardiovascular: Rate/Rhythm: regular rate and regular rhythm Gastrointestinal (Abdomen): normal bowel sounds, soft, nontender, no hepatosplenomegaly Skin: no rashes, warm and dry Results & Data Results & Data Vital Signs (Past 12 Hours) Vital Signs Temp Pulse Resp BP Pulse Ox O2 Del Method 10/21/23 07:52 36.7 C 80 16 186/76 H 95 Room Air Laboratory Results 10/21/23 10/21/23 10/21/23 Range/Units 09:02 08:00 07:22 WBC 4.25 L (4.8-10.8) K/ul RBC 3.29 L (4.20-5.40) M/uL Hgb 9.3 L (12.0-16.0) g/dl Hct 28.5 L (37.0-47.0) % MCV 86.6 (80.0-100.0) fL MCH 28.3 (25.0-34.0) pg MCHC 32.6 (32.0-36.0) g/dL RDW Std Deviation 44.3 (36.4-46.3) fL RDW Coeff of Brian 14.0 (11.5-14.5) % Plt Count 211 (130-400) K/uL MPV 9.9 (9.4-12.4) fL Immature Gran % (Auto) 0.5 % Neut % (Auto) 60.9 % Lymph % (Auto) 23.1 % [place] % (Auto) 11.1 % Eos % (Auto) 3.5 % Baso % (Auto) 0.9 % Neut # (Auto) 2.59 (1.40-6.50) K/uL Lymph # (Auto) 0.98 L (1.20-3.40) K/uL [place] # (Auto) 0.47 (0.11-0.59) K/uL Eos # (Auto) 0.15 (0.00-0.50) K/uL Baso # (Auto) 0.04 (0.00-0.20) K/uL Immature Gran # (Auto) 0.02 (0.01-0.20) K/uL Sodium 142 (136-145) mmol/L Potassium 3.2 L (3.5-5.1) mmol/L Chloride 118 H (98-107) mmol/L Carbon Dioxide 18 L (21-32) mmol/L Anion Gap 6 (3-11) BUN 4 L (6-23) mg/dl Creatinine 0.67 (0.6-1.2) mg/dl Est Cr Clr Drug Dosing 64.0 ml/min Est GFR ( Amer) 98.3 ml/min Est GFR (Non-Af Amer) 84.8 ml/min BUN/Creatinine Ratio 6.0 L (10-20) Glucose 87 (70-99(Fasting)) mg/dl POC Glucose 96 (70-99) mg/dl Calcium 8.2 L (8.6-10.3) mg/dl Magnesium 1.7 (1.7-2.4) mg/dl Total Bilirubin 0.4 (0.2-1.0) mg/dl AST 21 (13-39) U/L ALT 19 (7-52) U/L Alkaline Phosphatase 82 (34-104) U/L Total Protein 5.8 L (6.0-8.3) gm/dl Albumin 3.4 (3.4-5.0) gm/dl Globulin 2.4 L (2.5-4.0) gm/dl Albumin/Globulin Ratio 1.4 (0.9-2) Vitamin B12 Pending IgA Pending Tiss Transglutamin IgA Pending Celiac Disease Interp Pending 10/20/23 10/20/23 10/20/23 Range/Units 20:38 16:43 12:01 WBC (4.8-10.8) K/ul RBC (4.20-5.40) M/uL Hgb (12.0-16.0) g/dl Hct (37.0-47.0) % MCV (80.0-100.0) fL MCH (25.0-34.0) pg MCHC (32.0-36.0) g/dL RDW Std Deviation (36.4-46.3) fL RDW Coeff of Brian (11.5-14.5) % Plt Count (130-400) K/uL MPV (9.4-12.4) fL Immature Gran % (Auto) % Neut % (Auto) % Lymph % (Auto) % [place] % (Auto) % Eos % (Auto) % Baso % (Auto) % Neut # (Auto) (1.40-6.50) K/uL Lymph # (Auto) (1.20-3.40) K/uL [place] # (Auto) (0.11-0.59) K/uL Eos # (Auto) (0.00-0.50) K/uL Baso # (Auto) (0.00-0.20) K/uL Immature Gran # (Auto) (0.01-0.20) K/uL Sodium (136-145) mmol/L Potassium (3.5-5.1) mmol/L Chloride (98-107) mmol/L Carbon Dioxide (21-32) mmol/L Anion Gap (3-11) BUN (6-23) mg/dl Creatinine (0.6-1.2) mg/dl Est Cr Clr Drug Dosing ml/min Est GFR ( Amer) ml/min Est GFR (Non-Af Amer) ml/min BUN/Creatinine Ratio (10-20) Glucose (70-99(Fasting)) mg/dl POC Glucose 166 H 132 H 89 (70-99) mg/dl Calcium (8.6-10.3) mg/dl Magnesium (1.7-2.4) mg/dl Total Bilirubin (0.2-1.0) mg/dl AST (13-39) U/L ALT (7-52) U/L Alkaline Phosphatase (34-104) U/L Total Protein (6.0-8.3) gm/dl Albumin (3.4-5.0) gm/dl Globulin (2.5-4.0) gm/dl Albumin/Globulin Ratio (0.9-2) Vitamin B12 IgA Tiss Transglutamin IgA Celiac Disease Interp PG Care Time/CCT Total # of Minutes Spent Total Time Spent with Patient: Total time spent is greater than 50% in coordination of care (as documented) at patient's floor/unit and/or counseling patient: Coding Level of Care Code 80097 SUB INP/OBS CARE 2/35MIN Diagnoses Diarrhea R19.7 Diarrhea type: unspecified type (1) Diarrhea Diarrhea type: unspecified type Qualified Code(s): R19.7 - Diarrhea, unspecified
[2023-10-21] MEDS: CHOLESTYRAMINE LIGHT 4 GM PKT PO SCH (11:26)
[2023-10-22] MEDS: MELATONIN 3 MG TAB PO PRN (01:50)
[2023-10-22 07:52] LABS: BUN Creatinine Ratio 9.2 (10-20); Calcium 8.7 mg/dl (8.6-10.3); Est GFR (African American) 87.7 ml/min; Est GFR (Non-African American) 75.7 ml/min; Magnesium 1.6 mg/dl (1.7-2.4); Potassium 3.5 mmol/L (3.5-5.1)
--- NOTE | 2023-10-22 09:12 | Gastroenterology Progress Note ---
Date of Service October 22, 2023 Assessment & Plan (1) Diarrhea: Plan: 78 year old female with history of CAD s/p STEMI in March 2023 on ASA and Brillinta, HTN, DM II, Previous C. difficile infection, and ROMAN presenting from [facility] EMS on 09/24/2023 due to approximately 4 weeks of ongoing diarrhea and abdominal pain w/ plan for colonoscopy today S/P colonoscopy, biopsies pending. Diarrhea has improved with addition of Questran No GI contraindication to diet No GI contraindication to discharge Titrate Questran 4G twice daily Can continue Imodium PRN Follow biopsies to guide treatment options Recall GI as needed I spent a total of 40 minutes on the date of service in review of patient's record, and previously obtained information in person and appropriate medical visit, discussion and education of plan, with patient and/or caregiver, placing orders for tests/referral/procedures as medically necessary and documentation of pertinent clinical information in patient's medical records for their visit today. Thank you for allowing us to participate in the care of this patient. Please call with any acute changes, questions or concerns. Please see addendum below with additional recommendation from my supervising physician. Admission and Anticipated Discharge Date Admission Date: October 17, 2023 Supervising Physician Co-Signing Physician Notes lymphocytic colitis noted. Doing well on cholestyremine. If diarrhea worsens, steroid taper can be done vs entocort (based on cost). Subjective She notes improvement of diarrhea since starting Questran Had one small volume, semi-formed stool since starting the medication. Occasional lower abd cramping Biopsies from colonoscopy are pending. Review of Systems Review of Systems: All other findings negative except as noted in HPI. Physical Exam Constitutional: WD/WN, vitals as above Respiratory: normal respiratory effort, lungs clear to auscultation Cardiovascular: Rate/Rhythm: regular rate and regular rhythm Gastrointestinal (Abdomen): normal bowel sounds, soft, nontender, no hepatosplenomegaly Skin: no rashes, warm and dry Results & Data Results & Data Vital Signs (Past 12 Hours) Vital Signs Temp Pulse Resp BP BP Pulse Ox O2 Del Method 10/22/23 07:02 36.8 C 79 14 163/81 H 96 Room Air 10/22/23 01:19 172/84 H Laboratory Results 10/22/23 10/22/23 10/21/23 Range/Units 07:24 06:40 20:34 Sodium 141 (136-145) mmol/L Potassium 3.5 (3.5-5.1) mmol/L Chloride 114 H (98-107) mmol/L Carbon Dioxide 21 (21-32) mmol/L Anion Gap 6 (3-11) BUN 7 (6-23) mg/dl Creatinine 0.76 (0.6-1.2) mg/dl Est Cr Clr Drug Dosing 57.0 ml/min Est GFR ( Amer) 87.7 ml/min Est GFR (Non-Af Amer) 75.7 ml/min BUN/Creatinine Ratio 9.2 L (10-20) Glucose 108 H (70-99(Fasting)) mg/dl POC Glucose 111 H 127 H (70-99) mg/dl Calcium 8.7 (8.6-10.3) mg/dl Magnesium 1.6 L (1.7-2.4) mg/dl Vitamin B12 (180-914) pg/ml 10/21/23 10/21/23 10/21/23 Range/Units 16:44 11:42 07:22 Sodium (136-145) mmol/L Potassium (3.5-5.1) mmol/L Chloride (98-107) mmol/L Carbon Dioxide (21-32) mmol/L Anion Gap (3-11) BUN (6-23) mg/dl Creatinine (0.6-1.2) mg/dl Est Cr Clr Drug Dosing ml/min Est GFR ( Amer) ml/min Est GFR (Non-Af Amer) ml/min BUN/Creatinine Ratio (10-20) Glucose (70-99(Fasting)) mg/dl POC Glucose 113 H 109 H (70-99) mg/dl Calcium (8.6-10.3) mg/dl Magnesium (1.7-2.4) mg/dl Vitamin B12 305 (180-914) pg/ml PG Care Time/CCT Total # of Minutes Spent Total Time Spent with Patient: Total time spent is greater than 50% in coordination of care (as documented) at patient's floor/unit and/or counseling patient: Coding Level of Care Code 20120 SUB INP/OBS CARE 2/35MIN Diagnoses Diarrhea R19.7 Diarrhea type: unspecified type (1) Diarrhea Diarrhea type: unspecified type Qualified Code(s): R19.7 - Diarrhea, unspecified
--- NOTE | 2023-10-22 10:49 | Discharge Summary ---
Discharge Summary Date of Service October 22, 2023 Principal Dx & Hospital Course #1 = Principal Diagnosis (1) Diarrhea: 78yo female with chronic diarrhea ongoing x 2 months.Ddx:?microscopic colitis, ?crohns vs malignancy? Patient with evidence of dehydration, mild YAKOV on admission CT scan of abdomen and pelvis done showed prominent fluid throughout the colon with hyperenhancement and mild thickening of the mucosa, consistent with inflammatory infectious colitis Infectious workup is NEGATIVE. Patient continues to have about 6-7 episodes of diarrhea daily, Imodium is not helping. Willing to try p.o. morphine Fish Flipper on consult, Plan is for colonoscopy on 10/20/2023. Limiting lactose Continue Imodium And morphine, which seem to be working for now, only 1 episode of diarrhea today. Stool calprotectin is pending 10/20 s/p C-scope with Dr Thompson 10/19 * C-scope noting non-bleeding hemorrhoids during retroflexion. Terminal ileum normal. Few small mouthed diverticula were found in the sigmoid colon. Biopsies for history taken from entire colon for eval of mircoscopic colitis given mildly edematous colon throughout microscopic colitis cannot be ruled out. * Will need outpt f/u biopsies * Consideration for cholestyramine 4gm BID if diarrhea persists Improved but NOW WORSE AGAIN overnight Diet advanced to lactose intolerant/DM II diet. ADDING QUESTRAN BID, monitor diarrhea Electrolytes improving but K still low. 40meq PO x 1 ordered. Mag wnl 1.7 -- suspect 2nd to diarrheal losses. CO2 improving and will monitor to add PO bicarb slow mag started and consider continuing at discharge over mag oxide to prevent diarrhea Stool calprotectin level pending. Celiac panel sent Path pending from c-scope - will need outpt f/u PT/OT evals pending to ensure able to return back to [facility] following to arrange transport Hopeful dc in AM (2) YAKOV (acute kidney injury): Cr 1.41 on admission, suspected 2nd to dehydration from diarrheal lossess IVF/electrolyte replacement, additional 1L IVF while NPO for scope as above Home lisinopril/spironolactone on hold on admission Cr resolved, lisinopril resumed 10/20 Renal function remaining stable and given hypokalemia/slight swelling resuming spironolactone and will monitor BMP in AM Renal dose meds/avoid nephrotoxins as able (3) History of CAD (coronary artery disease): CAD s/p STEMI with MAUREEN placed to LCx in March 2023. Also with 80% small distal LAD disease being medically managed. Patient is on ASA and Brillinta. Follows with Cardiology. Denies chest pain, palpitations or SOB Continues ASA and Brillinta, Continue Metoprolol, atorvastatin, ISMN No CP reported/SOB (4) Hypomagnesemia: 1.4 on labs, IV replacement ordered. ?diarrhea/PPI use Mg level IMPROVE/stable 1.7 however suspect w/ ongoing diarrhea will be low again and started ONCE DAILY slow MAG. Monitor to increase to BID/TID as needed (5) Hypokalemia: low, replacement ordered and improved but remains low, again suspect 2nd to diarrhea PO replacement ordered, lisinopril/spironolactone resumed as above BMP in AM Plan Chronic medical problems Depression - chronic, stable. continues citalopram. Support provided Diabetes - chronic, Lantus 5U QAM . BSG AC/HS, sliding scale insulin DM diet resumed following c-scope Remains on gabapentin, check B12 w/ AM labs given borderline earlier this year -- pending GERD - chronic. Continues on protonix daily. No increased issues reported/monitor and would hold off increasing to avoid worsning magnesium/possible cdiff (however cdiff/stool PCR negative) ROMAN - chronic, CPAP HS Dispo: PT/OT hailey completed . Discharge today, October 21, on Questran. She will use Oxy IR as needed for any recurrent pain Admission HPI Per Admitting Provider Stefany Arroyo is a 78yo female with history of CAD s/p STEMI in March 2023 s/p MAUREEN to distal Cx, HTN, DM, ROMAN presenting with ongoing diarrhea. Patient report diarrhea ongoing for the last two months. She has diarrhea almost every day. She reports 6-7 episodes of watery diarrhea with urgency, incontinence and night-time symptoms. She has lower abdominal cramping on occasion as well which is often improved with BM. Decreased oral intake No blood or mucus in the stool. She is uncertain if her diarrhea episodes are associated with eating or any type of food. Patient has been taking Immodium at home with minimal improvement. She denies fever, chills, abdominal pain. She has lost weight - estimated 50-60# over the last year - unintentional She had a colonoscopy performed appx 12 years ago at [facility] - does not recall any concerning findings. Recent stent placement in March 2023 - on DAPT with ASA and Brillinta. Has not been able to have repeat colonoscopy due to DAPT and fresh stent. Was admitted to [facility] with similar symptoms 09/23 - 09/26/23. Found to have YAKOV, Pancolitis noted on CT imaging. GI consulted. Discharge Exam General-alert and oriented x3, no fever, no chills HEENT-head atraumatic and normocephalic, pupils equal and reactive to light, extraocular muscles intact Neck-no lymphadenopathy or thyromegaly, trachea midline Chest-clear to auscultation. No rales, wheezing or rhonchi Cardiac-regular rate and rhythm, normal S1 and S2 Abdomen-normal bowel sounds, no hepatosplenomegaly Extremities-no cyanosis, clubbing, or edema Neuro-cranial nerves II through XII intact, motor and sensory function within normal limits, strength symmetrical, no focal deficits Psych-normal affect, normal mood Updated Medication List Medication Instructions Recorded Confirmed Type glucose 4 gram chewable tablet 1 tab PO DAILY PRN HYPOGLYCEMIA 11/26/17 10/16/23 History tolterodine 2 mg tablet 2 mg PO BID 11/26/17 10/16/23 History acetaminophen 325 mg tablet 650 mg PO Q6H PRN Fever Or Pain 06/12/18 10/16/23 History (Tylenol) nystatin 100,000 unit/gram topical 1 applic topical BID PRN RASH IN 11/24/22 10/16/23 History cream ABD FOLDS NEEDED pen needle, diabetic, safety 30 #100 ea 01/12/23 09/29/23 History gauge x 1/3" (Novofine Autocover) methenamine hippurate 1 gram tablet 1 g PO Q12H #180 tabs 02/12/23 10/16/23 Rx spironolactone 25 mg tablet 25 mg PO BID #60 tabs 03/20/23 10/16/23 Rx metoprolol tartrate 50 mg tablet 50 mg PO BID #60 tabs 04/08/23 10/16/23 Rx ticagrelor 90 mg tablet (Brilinta) 90 mg PO BID #60 tabs 04/08/23 10/16/23 Rx citalopram 20 mg tablet 20 mg PO QAM 05/09/23 10/16/23 History fluorometholone 0.1 % eye 1 drp OPB DAILY 05/09/23 10/16/23 History drops,suspension hydrocortisone 1 % topical cream 1 applic topical BID PRN Rash 05/09/23 10/16/23 History lisinopril 40 mg tablet 40 mg PO QAM 05/09/23 10/16/23 History vit C 250 mg-vit E 90 mg-zinc 40 1 tab PO BID 05/09/23 10/16/23 History mg-copper 1 pu-dixghq-fkkaer capsule (PreserVision AREDS-2) aspirin 81 mg tablet,delayed 81 mg PO QAM #30 tabs 05/10/23 10/16/23 Rx release melatonin 10 mg capsule 10 mg PO HS sleep #30 caps 08/04/23 10/16/23 Rx polyethylene glycol 3350 17 gram 17 g PO QAM PRN constipation #0 ea 08/27/23 10/16/23 Rx oral powder packet gabapentin 100 mg capsule 100 mg PO TID #45 caps 08/28/23 10/16/23 Rx insulin glargine 100 unit/mL (3 5 unit (0.05 mL) subcut QAM #3 mL 08/28/23 10/16/23 Rx mL) subcutaneous pen (Lantus Solostar U-100 Insulin) timolol 0.5 % eye drops 1 drp OPB QAM #5 mL 08/31/23 10/16/23 Rx flash glucose sensor (FreeStyle 09/08/23 09/29/23 History Savanna 2 Sensor kit) Qc Natural Veggie 95% Powder See Rx Instructions .Route .COMPLEX 09/24/23 10/16/23 History atorvastatin 40 mg tablet 40 mg PO HS 09/24/23 10/16/23 History dulaglutide 4.5 mg/0.5 mL 4.5 mg subcut WK 09/24/23 10/16/23 History subcutaneous pen injector (Trulicity) isosorbide mononitrate 60 mg 60 mg PO QAM 09/24/23 10/16/23 History tablet,extended release 24 hr nystatin 100,000 unit/gram topical 1 applic topical BID PRN Rash 09/24/23 10/16/23 History powder pantoprazole 40 mg tablet,delayed 40 mg PO QAM 09/24/23 10/16/23 History release quetiapine 25 mg tablet 25 mg PO QAM 09/24/23 10/16/23 History Bifidobacterium infantis 10.5 mg 10.5 mg PO DAILY #20 tabs 09/26/23 10/16/23 Rx (10 million cell) chewable tablet (Align) loperamide 2 mg capsule 4 mg (2 x 2 mg) PO Q4H PRN loose 09/26/23 10/16/23 Rx stool #30 caps acetaminophen 325 mg tablet 650 mg PO HS 09/29/23 10/16/23 History amoxicillin 500 mg capsule 2,000 mg PO DIRECTED PRN 1 HOUR 09/29/23 10/16/23 History PRIOR TO DENTAL VISIT lorazepam 0.5 mg tablet 0.5 mg PO HS anxiety #30 tabs 09/29/23 10/16/23 Rx Lift chair / recliner #1 ea 10/05/23 10/05/23 Rx insulin lispro 100 unit/mL 3 unit subcut TIDM 10/16/23 10/16/23 History subcutaneous pen (Humalog KwikPen (U-100) Insulin) cholestyramine-aspartame 4 gram 1 ea PO BID@1000,2200 #30 ea 10/22/23 Rx oral powder for susp in a packet (Prevalite) magnesium chloride 64 mg 64 mg PO QAM #30 tabs 10/22/23 Rx (magnesium chloride) tablet,delayed release (Mag 64) oxycodone 5 mg tablet 5 mg PO Q6H PRN pain #20 tabs 10/22/23 Rx Hospital Stay Data Consultations 10/16/23 23:46 ED Decision to Admit Stat 10/17/23 00:40 Consult Gastroenterology Routine Procedures Performed Operation Date: 10/20/23 16:30 Actual Procedures p Colonoscopy Biopsy Cytology - Cj Thompson MD Diagnostic Imagining Performed 10/16/23 20:19 CT abd pelvis IV con only Stat Pending Results Patient Have Any Pending Studies at Discharge: Yes (stool calprotectin , pathology from colonoscopy) Discharge Instructions Given to Patient (Per Discharging Provider) You have been hospitalized for diarrhea. Stool studies were negative. GI was consulted and you underwent colonoscopy which was not grossly abnormal but did have some inflammation and biopsies were taken to evaluate for microscopic colitis but are pending and may take several days for results and can be followed up as outpatient. We have started SLOW magnesium to help keep stores stable with ongoing diarrhea. You should have follow up with primary care and GI in the next 7-10 days to monitor your status after discharge. Please return to the ER with any increased diarrhea/abdominal pain, or for any fever/chills, or symptoms concerning for you. It has been a pleasure being a part of the medical team providing for you while you have been in the hospital. Take care! Total Time Total Time Spent Total Time Spent (In Minutes): 45 minutes Coding Level of Care Code 34671 INP/OBS DISCH >30 MIN Diagnoses Diarrhea, unspecified type R19.7 Diarrhea type: unspecified type YAKOV (acute kidney injury) N17.9 History of CAD (coronary artery disease) Z86.79 Hypomagnesemia E83.42 Hypokalemia E87.6
[2023-10-23 03:22] LABS: IgA Serum 299 mg/dL (70-320); Tis Trans IgA <1.0 U/mL
== END 2023-10-22 12:53 | disposition home or self-care (01) | DRG 392 ==
LOC: ED 19:22 → SUATTDRO 10-17 00:37 → 3W 10-17 00:37

== ENCOUNTER 2023-11-28 12:51 | Observation (INO) ==
[2023-11-28] MEDS: SODIUM CHLORIDE 0.9% 1,000 ML IV SCH (13:25)
[2023-11-28 13:30] LABS: Hematocrit (blood only) 35.3 % (37.0-47.0); Hemoglobin 10.9 g/dl (12.0-16.0); Mean Corpuscular Hemoglobin 28.2 pg (25.0-34.0); Mean Corpuscular Hgb Conc 30.9 g/dL (32.0-36.0); Mean Corpuscular Volume 91.2 fL (80.0-100.0); Mean Platelet Volume 10.1 fL (9.4-12.4); Platelet Count 205 K/uL (130-400); RDW Coefficient of Variation 14.6 % (11.5-14.5); RDW Standard Deviation 48.6 fL (36.4-46.3); Red Blood Count 3.87 M/uL (4.20-5.40); White Blood Count 5.85 K/ul (4.8-10.8)
[2023-11-28 13:54] LABS: Basophils # (auto) 0.04 K/uL (0.00-0.20); Basophils % (auto) 0.7 %; Dohle Bodies 1+; Eosinophils # (auto) 0.16 K/uL (0.00-0.50); Eosinophils % (auto) 2.7 %; Immature Granulocytes # (auto) 0.02 K/uL (0.01-0.20); Immature Granulocytes % (auto) 0.3 %; Lymphocytes # (auto) 0.91 K/uL (1.20-3.40); Lymphocytes % (auto) 15.6 %; Monocytes # (auto) 0.93 K/uL (0.11-0.59); Monocytes % (auto) 15.9 %; Neutrophils # (auto) 3.79 K/uL (1.40-6.50); Neutrophils % (auto) 64.8 %; Polychromasia 1+; Tear Drop Cells 1+
[2023-11-28 13:56] LABS: Albumin Globulin Ratio 1.4 (0.9-2); BUN Creatinine Ratio 27.7 (10-20); Bilirubin,Total 0.3 mg/dl (0.2-1.0); Calcium 9.2 mg/dl (8.6-10.3); Est GFR (African American) 26.9 ml/min; Est GFR (Non-African American) 23.2 ml/min; Globulin 2.9 gm/dl (2.5-4.0); Total Protein 6.9 gm/dl (6.0-8.3)
[2023-11-28 14:01] LABS: Potassium 5.9 mmol/L (3.5-5.1)
[2023-11-28 14:07] LABS: Thyroid Stimulating Hormone 1.409 uIu/ml (0.300-4.500)
[2023-11-28 14:24] LABS: Adenovirus PCR Not Detected (NotDetected); Bordetella parapertussis PCR Not Detected (NotDetected); Bordetella pertussis PCR Not Detected (NotDetected); Chlamydia pneumoniae PCR Not Detected (NotDetected); Coronavirus 229E PCR Not Detected (NotDetected); Coronavirus CoV-2 (COVID19)PCR Not Detected (NotDetected); Coronavirus HKU1 PCR Not Detected (NotDetected); Coronavirus NL63 PCR Not Detected (NotDetected); Coronavirus OC43PCR Not Detected (NotDetected); Human Metapneumovirus PCR Not Detected (NotDetected); Influenza A PCR Not Detected (NotDetected); Influenza B PCR Not Detected (NotDetected); Mycoplasma pneumoniae PCR Not Detected (NotDetected); Parainfluenza Virus 1 PCR Not Detected (NotDetected); Parainfluenza Virus 2 PCR Not Detected (NotDetected); Parainfluenza Virus 3 PCR Not Detected (NotDetected); Parainfluenza Virus 4 PCR Not Detected (NotDetected); Respiratory Syncytial VirusPCR Not Detected (NotDetected); Rhinovirus/Enterovirus PCR Not Detected (NotDetected)
--- NOTE | 2023-11-28 14:33 | Emergency Department Note ---
Impression & Plan Acute dehydration, YAKOV (acute kidney injury), Metabolic acidosis, Diarrhea ED Provider Note NAME: SHENG SINGH AGE: 78 SEX: F : 1945 ARRIVES VIA: Ambulance INFORMANT: Patient, prior records, nursing report ED PROVIDER(S): Uli Frausto MD CHIEF COMPLAINT: Weakness MEDICAL DECISION MAKING: Patient presents due to concern for weakness. IV was established and blood work was obtained. The patient does not have any abdominal pain on exam. IV fluids ordered. Patient with a normal white count hemoglobin of 10.9 chronic and stable. Platelet count is unremarkable. Patient's kidney function with a creat of 2. The patient does have associated YAKOV lower bicarb and an increased anion gap. Patient likely has a secondary to volume loss. Patient does have elevated BUN to creatinine ratio consistent with prerenal azotemia and dehydration. Patient did have stool studies ordered. [employer] is negative for viral infection. Stool studies pending. Given the patient's YAKOV dehydration and diarrhea I did speak with on-call hospitalist service OSCAR Phillips PA-C and Dr. Carter. Discussion w/ other healthcare providers: OSCAR Phillips PA-C and Dr. Carter inpatient medicine service Prior /Outside records reviewed: I reviewed part of a primary care visit from Dr. Adam. Patient with a prior history of lymphocytic colitis enteritis and peripheral neuropathy. Per review of this note patient was negative for C. difficile but was evaluated by the hospitalist. Patient did have a colonoscopy could not rule out microscopic colitis but was essentially unremarkable biopsies were taken which revealed lymphocytic colitis. Differential diagnosis: Infection, dehydration, metabolic abnormality, hypo/hyperglycemia, electrolyte imbalance, anemia, UTI, pneumonia, thyroid dysfunction among others were considered. Diagnostics, as interpreted by me: ECG: None Cardiac monitoring: An order was placed for continuous cardiac monitoring. The monitor shows a rate of 78 with sinus rhythm. Patient was placed on pulse oximetry Medical decision rules: None Imaging studies: None HPI: Patient presents due to concern for increasing weakness. The patient reports that she has had some diarrhea over the last week but seem to have progressed in the last 2 days. The patient reports that she initially had 1 or 2 bouts of diarrhea daily but yesterday had 3 bouts and today up to 5. Patient reportedly had a concern for C. difficile per EMS during her prior stay. Patient denies any known sick contacts or recent travel but does reside at [facility]. The patient denies abdominal pain but states she does have occasional discomfort. Patient states that this morning she felt very weak but yesterday she was feeling quite good. Patient denies any nausea or vomiting. PAST MEDICAL HISTORY: See Below PAST SURGICAL HISTORY: See Below SOCIAL HISTORY: See Below HOME MEDICATIONS: See Below ALLERGIES: See Below VITALS: See Below PHYSICAL EXAMINATION: GENERAL: Fatigable but nontoxic in appearance. EYE EXAM: Normal conjunctiva. PERRL, no anisocoria and EOM's grossly intact w/o pain. OROPHARYNX: Moist mucus membranes, grossly normal dentition. NECK: Trachea midline, no stridor. LUNGS: Clear to auscultation. Normal chest wall mechanics. HEART: NSR, no MRG. ABDOMEN: Abdomen soft, non-tender, no masses, no rebound or guarding. BACK: No CVA TTP. SKIN: No rashes and no bruising. UPPER EXTREMITIES: Upper extremities are grossly normal. LOWER EXTREMITIES: Grossly normal, no edema. NEURO EXAM: A&O x3, cranial nerves II-XII grossly intact, normal speech, moves all 4 extremities. Past Med/Surg History Problem List (Updated 11/28/23 @ 16:12 by Uli Frausto MD) Diarrhea (Acute) Metabolic acidosis (Acute) Diabetes mellitus, type 2 IDDM History of CAD (coronary artery disease) Hyperkalemia Chronic diarrhea Lower back pain Lymphocytic colitis (Acute) Hypokalemia Hypomagnesemia YAKOV (acute kidney injury) (Acute) Diarrhea (Acute) Abdominal pain (Acute) Acute UTI (Acute) Acute dehydration (Acute) YAKOV (acute kidney injury) (Acute) Hypermagnesemia Gait instability (Acute) Imbalance Urinary incontinence Anemia (Acute) Chest pain (Acute) Chest pain Diabetic retinopathy associated with type 2 diabetes mellitus Left nephrolithiasis Overactive bladder GERD (gastroesophageal reflux disease) hx Sleep apnea cpap nightly with 3lpm of oygen Depression Per records Glaucoma CAD (coronary artery disease) Occlusion of distal portion of left circumflex coronary artery Proteinuria Chronic kidney disease, stage 3a Vitamin D deficiency Diabetic nephropathy associated with type 2 diabetes mellitus Enteritis, inflammatory disorder of small intestine (Chronic Unknown) Fatigue (Acute) Generalized weakness (Acute) Knee pain (Acute) Radiculopathy, lumbar region Spinal stenosis of lumbar region Hypertension DVT prophylaxis Toe ulcer Pressure ulcer, stage III (Acute) Diabetes mellitus type 2 in obese Dyslipidemia Statin myopathy Peripheral neuropathy Hyponatremia Medical History Anemia Weight loss, non-intentional Anemia UTI (urinary tract infection) YAKOV (acute kidney injury) History of recurrent UTI (urinary tract infection) Insomnia Per records Neuropathy per patient- hands and feet Hypertension Per records History of macular degeneration Chronic back pain Neurogenic claudication due to lumbar spinal stenosis History of nephrolithiasis Nasal bone fracture Cholecystitis, acute Surgical History Status post spinal surgery History of bilateral tubal ligation Hx of total knee arthroplasty bilateral S/P epidural steroid injection History of cholecystectomy History of colonoscopy History of cornea transplant bilateral History of cataract surgery bilateral History of appendectomy Family History Mother Breast cancer Aunt Colorectal cancer Diabetes Father Myocardial infarction Other No family history of adverse response to anesthesia No pertinent family history Denies family history of Ovarian cancer Prostate cancer Social History Smoking Status: Former smoker Tobacco Type: Cigarettes Age Quit Using Tobacco: 64; Cigarettes Per Day: 2 packs/day; Second Hand Exposure: No; Do You Dip or Chew Tobacco: No; Hx Alcohol Use: No Hx Substance Use: No Preferred Language: Chinese Communication Ability: Effective Visual Impairment: No Limitations Hearing Ability: Normal [employer] Required: No Beliefs That Will Affect Care: None marital status: Current Living Situation: Personal Care Facility Current [facility] Situation Comment: [facility] current occupational status: retired current occupation: Retired How many Children do You have: 2 Feels Safe at Home: Yes Childhood Exposure to Second-Hand Smoke: No Diet: regular caffeine: No during the past year weight has: remained stable Dental Care, Regularly: Yes Physical Activity Frequency: Does not Exercise Seatbelt Use: sometimes Sunscreen Use: Yes Assistive Devices: Walker Allergies Allergies Allergy/AdvReac Type Severity Reaction Status Date / Time latex Allergy Mild ON [facility] Verified 11/23/23 09:16 LIST-per patient- thinks rash niacin Allergy Unknown ON [facility] Verified 11/23/23 09:16 [From [employer] MED LIST Extended-Release] simvastatin Allergy Unknown ON Verified 11/23/23 09:16 [facility]- unsure Home Meds Home Medications Medication Instructions Recorded Confirmed glucose 4 gram chewable tablet 1 tab PO DAILY PRN HYPOGLYCEMIA 11/26/17 11/28/23 tolterodine 2 mg tablet 2 mg PO .DAILY@11/26/17 11/28/23 acetaminophen 325 mg tablet 650 mg PO Q6H PRN Fever Or Pain 06/12/18 11/28/23 (Tylenol) nystatin 100,000 unit/gram topical 1 applic topical BID PRN RASH IN 11/24/22 11/28/23 cream ABD FOLDS NEEDED citalopram 20 mg tablet 20 mg PO .DAILY@72905/09/23 11/28/23 fluorometholone 0.1 % eye 1 drp OPB .DAILY@72905/09/23 11/28/23 drops,suspension hydrocortisone 1 % topical cream 1 applic topical BID PRN Rash 05/09/23 11/28/23 lisinopril 40 mg tablet 40 mg PO .DAILY@72905/09/23 11/28/23 vit C 250 mg-vit E 90 mg-zinc 40 1 tab PO .DAILY@05/09/23 11/28/23 mg-copper 1 [id number] capsule (PreserVision AREDS-2) atorvastatin 40 mg tablet 40 mg PO .DAILY@209909/24/23 11/28/23 dulaglutide 4.5 mg/0.5 mL 4.5 mg subcut .SAT@79909/24/23 11/28/23 subcutaneous pen injector (Trulicity) isosorbide mononitrate 60 mg 60 mg PO .DAILY@72909/24/23 11/28/23 tablet,extended release 24 hr nystatin 100,000 unit/gram topical 1 applic topical BID PRN Rash 09/24/23 11/28/23 powder quetiapine 25 mg tablet 50 mg PO .DAILY@209909/24/23 11/28/23 acetaminophen 325 mg tablet 650 mg PO .HS@209909/29/23 11/28/23 amoxicillin 500 mg capsule 2,000 mg PO DIRECTED PRN 1 HOUR 09/29/23 11/28/23 PRIOR TO DENTAL VISIT insulin lispro 100 unit/mL 3 unit subcut TIDM 10/16/23 11/28/23 subcutaneous pen (Humalog KwikPen (U-100) Insulin) Oswaldo Alves 95% Powder 1 tsp PO .DAILY@72911/28/23 11/28/23 aspirin 81 mg tablet,delayed 81 mg PO .DAILY@72911/28/23 11/28/23 release diclofenac sodium 1 % topical gel 4 g topical .DAILY@11/28/23 11/28/23 gabapentin 100 mg capsule 100 mg PO .@11/28/23 11/28/23 gabapentin 800 mg tablet 800 mg PO .@729,1499,209911/28/23 11/28/23 insulin glargine 100 unit/mL (3 8 unit subcut .DAILY@79911/28/23 11/28/23 mL) subcutaneous pen (Lantus Solostar U-100 Insulin) ketoconazole 2 % topical cream 1 applic topical .DAILY@11/28/23 11/28/23 loperamide 2 mg capsule 2 mg PO QID PRN loose stool 11/28/23 11/28/23 lorazepam 0.5 mg tablet 0.5 mg PO .DAILY@1999 anxiety 11/28/23 11/28/23 lorazepam 0.5 mg tablet 0.5 mg PO DAILY PRN Anxiety 11/28/23 11/28/23 menthol 0.44 %-zinc oxide 20.6 % 1 applic topical BID PRN skin 11/28/23 11/28/23 topical ointment (Calmoseptine) irritation methenamine hippurate 1 gram tablet 1 g PO .DAILY@11/28/23 11/28/23 metoprolol tartrate 50 mg tablet 50 mg PO .DAILY@11/28/23 11/28/23 omeprazole 20 mg capsule,delayed 20 mg PO .DAILY@72911/28/23 11/28/23 release polyethylene glycol 3350 17 gram 8.5 g PO .DAILY@729 constipation 11/28/23 11/28/23 oral powder packet silver sulfadiazine 1 % topical 1 applic topical .DAILY@11/28/23 11/28/23 cream spironolactone 25 mg tablet 25 mg PO .DAILY@730,2100 11/28/23 11/28/23 ticagrelor 90 mg tablet (Brilinta) 90 mg PO .DAILY@729,209911/28/23 11/28/23 timolol 0.5 % eye drops 1 drp OPB .DAILY@72911/28/23 11/28/23 Previous Rx's Medication Instructions Recorded melatonin 10 mg capsule 10 mg PO HS sleep #30 caps 08/04/23 magnesium citrate 150 ml PO DAILY PRN No BM x 2 days 11/23/23 #296 mL Results & Data (ED) Vital Signs Vital Signs - 24 hr 11/28/23 13:16 11/28/23 13:25 11/28/23 13:28 Temperature 36.3 C L Temperature Source Oral Pulse Rate 96 H 96 H Pulse Rate [Left Finger] Respiratory Rate 18 18 Respiratory Effort / Characteristics Non-Labored Spontaneous Respiratory Depth Normal Respiratory Pattern Regular Blood Pressure 115/65 Blood Pressure [Left Arm] Blood Pressure Mean 81 Blood Pressure Mean [Left Arm] Blood Pressure Position Semi-fowlers Pulse Oximetry 98 96 Oxygen Delivery Method Room Air Room Air Room Air Sepsis Recent Fever Within 48 Hours No Sepsis New/Unexplained Change in Mental Status No Sepsis Action Taken by Nursing No Action Required 11/28/23 15:00 Temperature Temperature Source Pulse Rate Pulse Rate [Left Finger] 77 Respiratory Rate 18 Respiratory Effort / Characteristics Respiratory Depth Respiratory Pattern Blood Pressure Blood Pressure [Left Arm] 120/75 Blood Pressure Mean Blood Pressure Mean [Left Arm] 90 Blood Pressure Position Pulse Oximetry 99 Oxygen Delivery Method Sepsis Recent Fever Within 48 Hours Sepsis New/Unexplained Change in Mental Status Sepsis Action Taken by Skilled Nursing Medications Current Medication List: was personally reviewed by me Laboratory Data Attestation: I reviewed the patient's lab results. 11/28/23 13:09 11/28/23 13:09 Lab Results 11/28/23 11/28/23 Range/Units 13:09 13:11 WBC 5.85 (4.8-10.8) K/ul RBC 3.87 L (4.20-5.40) M/uL Hgb 10.9 L (12.0-16.0) g/dl Hct 35.3 L (37.0-47.0) % MCV 91.2 (80.0-100.0) fL MCH 28.2 (25.0-34.0) pg MCHC 30.9 L (32.0-36.0) g/dL RDW Std Deviation 48.6 H (36.4-46.3) fL RDW Coeff of Brian 14.6 H (11.5-14.5) % Plt Count 205 (130-400) K/uL MPV 10.1 (9.4-12.4) fL Immature Gran % (Auto) 0.3 % Neut % (Auto) 64.8 % Lymph % (Auto) 15.6 % [place] % (Auto) 15.9 % Eos % (Auto) 2.7 % Baso % (Auto) 0.7 % Neut # (Auto) 3.79 (1.40-6.50) K/uL Lymph # (Auto) 0.91 L (1.20-3.40) K/uL [place] # (Auto) 0.93 H (0.11-0.59) K/uL Eos # (Auto) 0.16 (0.00-0.50) K/uL Baso # (Auto) 0.04 (0.00-0.20) K/uL Immature Gran # (Auto) 0.02 (0.01-0.20) K/uL Hyposegmented Neuts 1+ Dohle Bodies 1+ Polychromasia 1+ Tear Drop Cells 1+ Sodium 135 L (136-145) mmol/L Potassium 5.9 H (3.5-5.1) mmol/L Chloride 110 H (98-107) mmol/L Carbon Dioxide 13 L (21-32) mmol/L Anion Gap 12 H (3-11) BUN 56 H (6-23) mg/dl Creatinine 2.02 H (0.6-1.2) mg/dl Est Cr Clr Drug Dosing 21.0 ml/min Est GFR ( Amer) 26.9 ml/min Est GFR (Non-Af Amer) 23.2 ml/min BUN/Creatinine Ratio 27.7 H (10-20) Glucose 152 H (70-99(Fasting)) mg/dl Calcium 9.2 (8.6-10.3) mg/dl Magnesium 2.0 (1.7-2.4) mg/dl Total Bilirubin 0.3 (0.2-1.0) mg/dl AST 11 L (13-39) U/L ALT 16 (7-52) U/L Alkaline Phosphatase 108 H (34-104) U/L Total Protein 6.9 (6.0-8.3) gm/dl Albumin 4.0 (3.4-5.0) gm/dl Globulin 2.9 (2.5-4.0) gm/dl Albumin/Globulin Ratio 1.4 (0.9-2) TSH 1.409 (0.300-4.500) uIu/ml Adenovirus (PCR) Not Detected (NotDetected) B. pertussis DNA (PCR) Not Detected (NotDetected) B.parapertussis DNA PCR Not Detected (NotDetected) C. pneumoniae DNA (PCR) Not Detected (NotDetected) Coronavirus OC43 (PCR) Not Detected (NotDetected) Coronavirus HKU1 (PCR) Not Detected (NotDetected) Coronavirus 229E (PCR) Not Detected (NotDetected) SARS-CoV-2 (PCR) Not Detected (NotDetected) Coronavirus NL63 (PCR) Not Detected (NotDetected) Human Metapneumovir PCR Not Detected (NotDetected) Influenza Type A (PCR) Not Detected (NotDetected) Influenza Type B (PCR) Not Detected (NotDetected) M. pneumoniae (PCR) Not Detected (NotDetected) Parainfluenza 1 (PCR) Not Detected (NotDetected) Parainfluenza 2 (PCR) Not Detected (NotDetected) Parainfluenza 3 (PCR) Not Detected (NotDetected) Parainfluenza 4 (PCR) Not Detected (NotDetected) RSV (PCR) Not Detected (NotDetected) Entero/Rhino (PCR) Not Detected (NotDetected) Administered Medications Lactated Ringer's (Lr) 1,000 mls @ 999 mls/hr IV .Q1H1M ONE Stop: 11/28/23 16:30 Last Admin: 11/28/23 15:39 Dose: 999 mls/hr Documented By: PRAKASH Discontinued Medications Sodium Chloride (Nss) 1,000 mls @ 999 mls/hr IV .Q1H1M JASPER Stop: 11/28/23 14:30 Last Admin: 11/28/23 13:25 Dose: 999 mls/hr Documented By: PRAKASH Calcium Gluconate () 1,000 mg in 60 mls @ 240 mls/hr IV NOW STA Stop: 11/28/23 15:44 Last Admin: 11/28/23 15:41 Dose: 240 mls/hr Documented By: PRAKASH Discharge Plan Visit Data Chief Complaint: Weakness Stated Complaint: WEAKNESS, DIARRHEA ED Provider: Uli Frausto Discharge Problem: Acute dehydration, YAKOV (acute kidney injury), Metabolic acidosis, Diarrhea Forms Stand Alone Forms: My [facility] [employer] Prescriptions Prescriptions: No Action nystatin 100,000 unit/gram cream 1 applic topical BID PRN (Reason: RASH IN ABD FOLDS NEEDED) melatonin 10 mg capsule 10 mg PO HS Qty: 30 11RF acetaminophen 325 mg tablet 650 mg PO .HS@2100 amoxicillin 500 mg capsule 2,000 mg PO DIRECTED PRN (Reason: 1 HOUR PRIOR TO DENTAL VISIT) Patient Comments: CONFIRMED ON [facility] 09/28 magnesium citrate Solution 150 ml PO DAILY PRN (Reason: No BM x 2 days) Qty: 296 2RF Rx Instructions: [place] flavor tolterodine 2 mg Tablet 2 mg PO .DAILY@729,2099 Rx Instructions: 729 & 2099 glucose 4 gram Tablet,Chewable 1 tab PO DAILY PRN (Reason: HYPOGLYCEMIA) acetaminophen [Tylenol] 325 mg Tablet 650 mg PO Q6H MDD MAX 3 GRAMS APAP/24 HOURS. PRN (Reason: Fever Or Pain) isosorbide mononitrate 60 mg tablet extended release 24 hr 60 mg PO .DAILY@729 nystatin 100,000 unit/gram powder 1 applic TOPICAL BID PRN (Reason: Rash) quetiapine 25 mg tablet 50 mg PO .DAILY@2100 atorvastatin 40 mg tablet 40 mg PO .DAILY@2100 Trulicity 4.5 mg/0.5 mL pen injector 4.5 mg subcut .SAT@0800 insulin lispro [Humalog KwikPen Insulin] 100 unit/mL insulin pen 3 unit SUBCUT TIDM MDD 20 units Rx Instructions: TAKES 0800, 1200, & 1700--3 UNIT BASE DOSE WITH PREMEAL BSG IS GREATER THAN 150, FOR EVERY 50 ABOVE BSG OF 200 ADD ADDITIONAL 3 UNITS. hydrocortisone 1 % Cream 1 applic TOPICAL BID PRN (Reason: Rash) PreserVision AREDS-2 250-90-40-1 mg Capsule 1 tab PO .DAILY@ Rx Instructions: 729 & 2099 lisinopril 40 mg tablet 40 mg PO .DAILY@729 Hold Instructions: Resume on 09/10/23. until followup with PCP citalopram 20 mg tablet 20 mg PO .DAILY@729 fluorometholone 0.1 % drops,suspension 1 drp OPB .DAILY@729 silver sulfadiazine 1 % Cream 1 applic TOPICAL .DAILY@ Rx Instructions: apply a 1.5 mm thickness lorazepam 0.5 mg Tablet 0.5 mg PO DAILY PRN (Reason: Anxiety) gabapentin 800 mg Tablet 800 mg PO .@ omeprazole 20 mg Capsule,Delayed Release(Dr/Ec) 20 mg PO .DAILY@729 ketoconazole 2 % Cream 1 applic TOPICAL .DAILY@ diclofenac sodium 1 % Gel 4 g TOPICAL .DAILY@ Rx Instructions: apply to left foot menthol-zinc oxide [Calmoseptine] 0.44-20.6 % Ointment 1 applic TOPICAL BID PRN (Reason: skin irritation ) loperamide 2 mg capsule 2 mg PO QID PRN (Reason: loose stool) polyethylene glycol 3350 17 gram powder in packet 8.5 g PO .DAILY@729 aspirin 81 mg tablet,delayed release (DR/EC) 81 mg PO .DAILY@729 spironolactone 25 mg tablet 25 mg PO .DAILY@ Rx Instructions: 729 & 2099 methenamine hippurate 1 gram tablet 1 g PO .DAILY@ Rx Instructions: 729 & 2099 lorazepam 0.5 mg tablet 0.5 mg PO .DAILY@1999 timolol 0.5 % drops 1 drp OPB .DAILY@729 metoprolol tartrate 50 mg tablet 50 mg PO .DAILY@ Rx Instructions: 729 & 2099 gabapentin 100 mg capsule 100 mg PO .@ Rx Instructions: take with 800 mg insulin glargine [Lantus Solostar U-100 Insulin] 100 unit/mL (3 mL) insulin pen 8 unit SUBCUT .DAILY@799 Brilinta 90 mg tablet 90 mg PO .DAILY@ Qc Natural Veggie 95% Powder 1 tsp PO .DAILY@729 Rx Instructions: Mix 1 teaspoon w/ Miralax daily in 8 ounces of liquid as needed for constipation Referrals Referrals: Levon Adam DO [Primary Care Provider] - Discharge Problem: Diarrhea Qualifiers: Diarrhea type: unspecified type Qualified Code(s): R19.7 - Diarrhea, unspecified
--- NOTE | 2023-11-28 14:44 | History & Physical Report ---
Date of Service November 28, 2023 Assessment & Plan (1) C. difficile colitis: Plan: Worsening diarrhea x 1 week Hx of recent hospitalizations with ongoing diarrhea C. difficile gene positive on arrival; toxin pending No leukocytosis; afebrile Will start patient on vancomycin 125 mg p.o. q6h Contact isolation precautions Hold loperamide A.m. CBC, BMP (2) Lymphocytic colitis: Plan: Biopsy-proven lymphocytic colitis dx on 10/20/23 Restart patient on budesonide 9 mg daily Patient needs to be on this medication for 6-8 weeks After clinical remission (<3 stools daily and no watery stools), start gradual taper Cholestyramine BID (3) YAKOV (acute kidney injury): Plan: BUN 56, creatinine 2.02 (baseline 0.97), EGFR 23.2 Avoid nephrotoxic agents where possible NSS 1000mL + LR 1000mL bolus, then continue with LR at 80mL/hr x 1 L Dose reduce gabapentin from 900-->300 mg TID Hold lisinopril, spironolactone Trend BMP q4h (4) Hyperkalemia: Plan: Potassium 5.9 on arrival In the setting of YAKOV Calcium gluconate 1000 mg IV Trend BMP and will add Lokelma, insulin/D5 if uptrending (5) History of CAD (coronary artery disease): Plan: S/p STEMI with MAUREEN placed to LCx in March 2023 Continue ASA, Brilinta, metoprolol, atorvastatin (6) Diabetes mellitus, type 2: Plan: Last A1c at 6.7% on 03/19/23 Lantus 5u QAM SSI; with target BSG range 110-140mg/dL, CF 50, carb ratio 15 T2DM diet BSG ACHS Adjust regimen as needed AM A1c (7) Sleep apnea: Plan: CPAP HS Plan Disposition: Admit to [facility] telemetry DNR/DNI T2DM diet VTE PPx: Heparin 5000u SQ q12h History of Present Illness Chief Complaint: Weakness Primary Care Provider: DO Stefany Iyer is a 78-year-old female with PMH of T2DM, pressure ulcer, radiculopathy, stage III CKD, CAD, glaucoma, sleep apnea, GERD, overactive bladder, and urinary incontinence. She presented via EMS from [facility] on 11/27 for recurrence of diarrhea that began on Wednesday 11/22. Patient reports multiple hospital admissions recently for gastro issues. She was having diarrhea for 5 weeks, then had constipation for 1 week, and now the diarrhea is back. She did have a colonoscopy performed, but was told that it was largely unremarkable. Recurrence of watery diarrhea started on Thursday; no blood in stool; no solid stool in between episodes of diarrhea; mediumtan color. She had 3 episodes of diarrhea this morning before lunch. She has had very little to eat or drink recently. Patient reportedly has a history of C. difficile colitis, but she does not recall this. She has an upcoming appointment with gastroenterology on December 16. Patient reports that she took her regular morning medications today including her insulin; no recent change in medications. She does not manage her own medicine at home. No episodes of fecal or urinary incontinence. No smoking, tobacco use, or alcohol use. Patient is concerned that she may have left her glasses in the ambulance. Patient's vitals are stable at time of admission. ED course: NSS 1000 mL IV ROS: Patient endorses diarrhea x 5 days, waking up feeling soaked, dizziness/lightheadedness, abdominal discomfort in the LLQ, nausea, and liquidy diarrhea. Patient denies fever, chills, headaches, chest pain, SOB, vomiting, change in urinary habits, burning with urination, blood in urine/stool, melena, Allergies Allergy/AdvReac Type Severity Reaction Status Date / Time latex Allergy Mild ON [facility] Verified 11/23/23 09:16 LIST-per patient- thinks rash niacin Allergy Unknown ON [facility] Verified 11/23/23 09:16 [From [facility] LIST Extended-Release] simvastatin Allergy Unknown ON Verified 11/23/23 09:16 [facility] LIST- unsure Home Medications Medication Instructions Recorded Confirmed Type glucose 4 gram chewable tablet 1 tab PO DAILY PRN HYPOGLYCEMIA 11/26/17 11/28/23 History tolterodine 2 mg tablet 2 mg PO .DAILY@0730,2100 11/26/17 11/28/23 History acetaminophen 325 mg tablet 650 mg PO Q6H PRN Fever Or Pain 06/12/18 11/28/23 History (Tylenol) nystatin 100,000 unit/gram topical 1 applic topical BID PRN RASH IN 11/24/22 11/28/23 History cream ABD FOLDS NEEDED hydrocortisone 1 % topical cream 1 applic topical BID PRN Rash 05/09/23 11/28/23 History lisinopril 40 mg tablet 40 mg PO .DAILY@72905/09/23 11/28/23 History vit C 250 mg-vit E 90 mg-zinc 40 1 tab PO .DAILY@729,2100 05/09/23 11/28/23 History mg-copper 1 [id number] capsule (PreserVision AREDS-2) melatonin 10 mg capsule 10 mg PO HS sleep #30 caps 08/04/23 11/28/23 Rx dulaglutide 4.5 mg/0.5 mL 4.5 mg subcut .FRI@79909/24/23 11/28/23 History subcutaneous pen injector (Truliceast [facility]) isosorbide mononitrate 60 mg 60 mg PO .DAILY@72909/24/23 11/28/23 History tablet,extended release 24 hr nystatin 100,000 unit/gram topical 1 applic topical BID PRN Rash 09/24/23 11/28/23 History powder quetiapine 25 mg tablet 25 mg PO .DAILY@72909/24/23 11/28/23 History amoxicillin 500 mg capsule 2,000 mg PO DIRECTED PRN 1 HOUR 09/29/23 11/28/23 History PRIOR TO DENTAL VISIT insulin lispro 100 unit/mL 3 unit subcut TIDM 10/16/23 11/28/23 History subcutaneous pen (Humalog KwikPen (U-100) Insulin) magnesium citrate 150 ml PO DAILY PRN No BM x 2 days 11/23/23 11/28/23 Rx #296 mL Qc Natural Veggie 95% Powder 1 tsp PO DAILY PRN Constipation 11/28/23 11/28/23 History insulin glargine 100 unit/mL (3 5 unit subcut .DAILY@79911/28/23 11/28/23 History mL) subcutaneous pen (Lantus Solostar U-100 Insulin) loperamide 2 mg capsule 2 mg PO QID PRN loose stool 11/28/23 11/28/23 History lorazepam 0.5 mg tablet 0.5 mg PO DAILY PRN Sleep 11/28/23 11/28/23 History magnesium chloride 64 mg 64 mg PO DAILY 11/28/23 11/28/23 History (magnesium chloride) tablet,delayed release (Mag 64) methenamine hippurate 1 gram tablet 1 g PO .DAILY@729,209911/28/23 11/28/23 History metoprolol tartrate 50 mg tablet 50 mg PO .DAILY@729,209911/28/23 11/28/23 History oxycodone 5 mg tablet 5 mg PO Q6H PRN Pain 11/28/23 11/28/23 History pantoprazole 40 mg tablet,delayed 40 mg PO DAILY 11/28/23 11/28/23 History release (Protonix) polyethylene glycol 3350 17 gram 8.5 g PO .DAILY@729 constipation 11/28/23 11/28/23 History oral powder packet polyethylene glycol 3350 17 17 g PO BID PRN Constipation 11/28/23 11/28/23 History gram/dose oral powder (Miralax) spironolactone 25 mg tablet 25 mg PO .DAILY@,209911/28/23 11/28/23 History timolol 0.5 % eye drops 1 drp OPB .DAILY@72911/28/23 11/28/23 History triamcinolone acetonide 0.1 % 1 applic topical BID 11/28/23 11/28/23 History topical ointment Past Med/Surg History Problem List (Updated 11/28/23 @ 16:17 by Bruce Phillips PA-C) C. difficile colitis Diarrhea (Acute) Metabolic acidosis (Acute) Diabetes mellitus, type 2 IDDM History of CAD (coronary artery disease) Hyperkalemia Chronic diarrhea Lower back pain Lymphocytic colitis (Acute) Hypokalemia Hypomagnesemia YAKOV (acute kidney injury) (Acute) Diarrhea (Acute) Abdominal pain (Acute) Acute UTI (Acute) Acute dehydration (Acute) YAKOV (acute kidney injury) (Acute) Hypermagnesemia Gait instability (Acute) Imbalance Urinary incontinence Anemia (Acute) Chest pain (Acute) Chest pain Diabetic retinopathy associated with type 2 diabetes mellitus Left nephrolithiasis Overactive bladder GERD (gastroesophageal reflux disease) hx Sleep apnea cpap nightly with 3lpm of oygen Depression Per records Glaucoma CAD (coronary artery disease) Occlusion of distal portion of left circumflex coronary artery Proteinuria Chronic kidney disease, stage 3a Vitamin D deficiency Diabetic nephropathy associated with type 2 diabetes mellitus Enteritis, inflammatory disorder of small intestine (Chronic Unknown) Fatigue (Acute) Generalized weakness (Acute) Knee pain (Acute) Radiculopathy, lumbar region Spinal stenosis of lumbar region Hypertension DVT prophylaxis Toe ulcer Pressure ulcer, stage III (Acute) Diabetes mellitus type 2 in obese Dyslipidemia Statin myopathy Peripheral neuropathy Hyponatremia Medical History Anemia Weight loss, non-intentional Anemia UTI (urinary tract infection) YAKOV (acute kidney injury) History of recurrent UTI (urinary tract infection) Insomnia Per records Neuropathy per patient- hands and feet Hypertension Per records History of macular degeneration Chronic back pain Neurogenic claudication due to lumbar spinal stenosis History of nephrolithiasis Nasal bone fracture Cholecystitis, acute Surgical History Status post spinal surgery History of bilateral tubal ligation Hx of total knee arthroplasty bilateral S/P epidural steroid injection History of cholecystectomy History of colonoscopy History of cornea transplant bilateral History of cataract surgery bilateral History of appendectomy Family History Mother Breast cancer Aunt Colorectal cancer Diabetes Father Myocardial infarction Other No family history of adverse response to anesthesia No pertinent family history Denies family history of Ovarian cancer Prostate cancer Social History Smoking Status: Former smoker Tobacco Type: Cigarettes Age Quit Using Tobacco: 64; Cigarettes Per Day: 2 packs/day; Second Hand Exposure: No; Do You Dip or Chew Tobacco: No; Hx Alcohol Use: No Hx Substance Use: No Preferred Language: Cameroonian Communication Ability: Effective Visual Impairment: No Limitations Hearing Ability: Normal Stain Dipper Required: No Beliefs That Will Affect Care: None marital status: Current Living Situation: Personal Care Facility Current Living Situation Comment: [facility] current occupational status: retired current occupation: Retired How many Children do You have: 2 Feels Safe at Home: Yes Safety Concerns: Feels Safe At This Time Childhood Exposure to Second-Hand Smoke: No Diet: regular caffeine: No during the past year weight has: remained stable Dental Care, Regularly: Yes Physical Activity Frequency: Does not Exercise Seatbelt Use: sometimes Sunscreen Use: Yes Assistive Devices: Denture - Upper, Glasses and Oxygen - at Night Assistive Devices Comment: johanna redd [facility] Review of Systems Review of Systems: See HPI above Physical Exam Physical Exam: General: no acute distress; pleasant affect; non-toxic appearing; well- nourished; cooperative; SpO2 98% on RA HEENT: normocephalic, atraumatic; no scleral icterus; PERRLA; vision and hearing grossly intact Neck: supple; no lymphadenopathy; trachea midline Skin: warm, dry without signs of tenting; no cyanosis; no rashes, bruising, lesions, or erythema noted CV: chest wall NTP; RRR; S1/S2 normal; no murmurs/rubs/gallops; pulses intact and symmetric at radial, DP, and PT Lungs: no acute respiratory distress; symmetrical chest wall expansion; clear breath sounds across all lung huffman w/o adventitious sounds; no wheezing ABD: Soft, NTP in all 4 quadrants; BS present; no rebound/guarding; no distention MSK: no tics or fasciculations; +1 pitting edema noted in the LEs b/l, nonerythematous Neuro: A&Ox3; normal mood and affect; fluent speech; no focal deficits; sensation grossly intact in the LEs b/l Results & Data Results & Data Vital Signs (Past 12 Hours) Vital Signs Temp Pulse Resp BP Pulse Ox O2 Del Method 11/28/23 13:28 Room Air 11/28/23 13:25 96 H 18 96 Room Air 11/28/23 13:16 36.3 C L 96 H 18 115/65 98 Room Air Laboratory Results Abnormal lab results 11/28/23 11/28/23 Range/Units 13:09 15:02 RBC 3.87 L (4.20-5.40) M/uL Hgb 10.9 L (12.0-16.0) g/dl Hct 35.3 L (37.0-47.0) % MCHC 30.9 L (32.0-36.0) g/dL RDW Std Deviation 48.6 H (36.4-46.3) fL RDW Coeff of Brian 14.6 H (11.5-14.5) % Lymph # (Auto) 0.91 L (1.20-3.40) K/uL [place] # (Auto) 0.93 H (0.11-0.59) K/uL Sodium 135 L (136-145) mmol/L Potassium 5.9 H (3.5-5.1) mmol/L Chloride 110 H (98-107) mmol/L Carbon Dioxide 13 L (21-32) mmol/L Anion Gap 12 H (3-11) BUN 56 H (6-23) mg/dl Creatinine 2.02 H (0.6-1.2) mg/dl BUN/Creatinine Ratio 27.7 H (10-20) Glucose 152 H (70-99(Fasting)) mg/dl AST 11 L (13-39) U/L Alkaline Phosphatase 108 H (34-104) U/L Stl C. diff Tox B Gene Positive Cdiff Gene H (Neg) Code Status & VTE Plan Code Status DNR/DNI VTE Prophylaxis Plan VTE Prophylaxis will be ordered: Yes Supervising Physician Co-Signing Physician Notes Patient seen and examined, chart reviewed, case discussed with Bruce Phillips PA-C and I agree with the assessment and plan as above except as otherwise noted Labs and images reviewed Patient history lymphocytic colitis which is seen on prior path reports. Patient was seen for similar 11/02/2023 and started on budesonide for lymphocytic colitis in addition to restarting her twice daily cholestyramine. Her symptoms actually resolved on her 11/22 follow-up, and she had complained of constipation at that time. She is pending follow-up back to GI however wish to follow-up with [facility] instead and was pending a follow-up to their services. Cholestyramine was held. She presents to the ER approximately 5 days later now with return of diarrhea, YAKOV, and hyperkalemia. She She is C diff gene positive, toxin pending. Given clinical risk due to multiple hospital exposures and positive gene will cover empirically with vancomycin. Her budesonide which was started 11/02/2023 for lymphocytic colitis was recommended for 6-8weeks then taper (beginning around 12/13 if doing well) at 9 mg daily and then a slow taper based on symptom control. Will continue budesonide 9 mg daily on admission. Choletyramine continued daily. Loperamide discontinued due to ?C diff. +volume contraction YAKOV with hyperkalemia. 1 L NSS given. EKG is without peaked T waves. Bundle branch block is redemonstrated. Given concurrent hyperchloremic metabolic acidosis additional saline was deferred, patient is given LR 1 L bolus which is still hyper concentrated with respect to potassium to plasma. Potassium recheck pending, if elevated will give insulin/dextrose/Lokelma x 1 at that time. Calcium 1 g given. PG Care Time/CCT Total # of Minutes Spent Total Time Spent with Patient: Total time spent is greater than 50% in coordination of care (as documented) at patient's floor/unit and/or counseling patient: Coding [place] [address] INT INP/OBS CARE 3/75MIN Patient Type Established Medical Decision Making High Complexity Diagnoses C. difficile colitis A04.72 Lymphocytic colitis K52.832 YAKOV (acute kidney injury) N17.9 Hyperkalemia E87.5 History of CAD (coronary artery disease) Z86.79 Diabetes mellitus, type 2 E11.9 Sleep apnea G47.30
[2023-11-28] MEDS: LACTATED RINGER'S 1,000 ML IV ONE (15:39)
[2023-11-28] MEDS: CALCIUM GLUCONATE 1,000 MG/60 ML BAG IV STA (15:41)
[2023-11-28 16:05] LABS: Cdiff Toxin B Gene (2yr or >) Positive Cdiff Gene (Neg)
[2023-11-28 16:36] LABS: Adenovirus F 40/41 PCR Not Detected (NotDetected); Astrovirus PCR Not Detected (NotDetected); Campylobacter PCR Not Detected (NotDetected); Cryptosporidium PCR Not Detected (NotDetected); Cyclospora cayetanensis PCR Not Detected (NotDetected); Entamoeba histolytica PCR Not Detected (NotDetected); Enteroaggregative E.coli(EAEC) Not Detected (NotDetected); Enteropathogenic E.coli (EPEC) Not Detected (NotDetected); Enterotoxigenic E.coli (ETEC) Not Detected (NotDetected); Giardia lamblia PCR Not Detected (NotDetected); Norovirus GI/GII PCR Not Detected (NotDetected); Plesiomonas shigelloides PCR Not Detected (NotDetected); Rotavirus A PCR Not Detected (NotDetected); Salmonella PCR Not Detected (NotDetected); Sapovirus PCR Not Detected (NotDetected); Shiga-like Toxin E.coli (STEC) Not Detected (NotDetected); Shigella/Enteroinvasive E.coli Not Detected (NotDetected); Vibrio cholerae PCR Not Detected (NotDetected); Vibrio species PCR Not Detected (NotDetected); Yersinia enterocolitica PCR Not Detected (NotDetected)
[2023-11-28] MEDS ORDERED: GLUCOSE 10 TAB/TUBE PO PRN (17:01)
[2023-11-28] MEDS ORDERED: DEXTROSE 50% 50 ML SYRINGE IV PRN (17:01)
[2023-11-28] MEDS ORDERED: GLUCOSE 40% GEL 15 GM TUBE PO PRN (17:01)
[2023-11-28] MEDS ORDERED: GLUCAGON FOR INJ 1 MG VIAL SQ PRN (17:01)
[2023-11-28] MEDS ORDERED: ACETAMINOPHEN 325 MG TAB PO PRN (17:01)
[2023-11-28] MEDS ORDERED: LORazepam 0.5 MG TAB PO PRN (17:01)
[2023-11-28] MEDS ORDERED: CARBOHYDRATES FOR HYPOGLYCEMIA PO PRN (17:01)
[2023-11-28] MEDS ORDERED: ONDANSETRON INJ 2 MG/ML 2 ML VIAL IV PRN (17:01)
[2023-11-28 17:20] LABS: Cdiff Antigen Negative; Cdiff Toxin A+B Negative Cdiff Toxin (Negative)
[2023-11-28] MEDS: LACTATED RINGER'S 1,000 ML IV SCH (17:28)
[2023-11-28] MEDS: BUDESONIDE EC 3 MG CAP PO STA (17:28)
[2023-11-28] MEDS: INSULIN ASPART PER UNIT CHARGE SC SCH (17:59)
[2023-11-28] MEDS: VANCOMYCIN HCL 125 MG/2.5ML SOLN PO SCH (18:07)
[2023-11-28] MEDS: CHERRY SYRUP 5 ML UDP PO SCH (18:07)
[2023-11-28 18:09] LABS: BUN Creatinine Ratio 32.3 (10-20); Calcium 8.8 mg/dl (8.6-10.3); Creatinine Clr Calc Pharmacy 26.4 ml/min; Est GFR (African American) 36.2 ml/min; Est GFR (Non-African American) 31.2 ml/min; Potassium 5.4 mmol/L (3.5-5.1)
[2023-11-28 19:52] LABS: Appearance Urine Cloudy (Clear); Bacteria Urine Automated 4+ (None Seen); Bilirubin Urine Negative (Negative); Blood Urine Trace (Negative); Color Urine Yellow; Glucose Urine UA Negative (Negative); Ketones Urine Negative (Negative); Leukocyte Esterase Urine 3+ (Negative); Nitrite Urine Negative (Negative); Protein Urine Negative (Negative); RBC Urine Automated 0-2 /hpf (0-2); Urobilinogen Urine Negative (Negative); WBC Urine Automated >50 /hpf (0-5); pH Urine 5.5 (4.5-7.5)
[2023-11-28] MEDS: MELATONIN 3 MG TAB PO SCH (20:29)
[2023-11-28] MEDS: ACETAMINOPHEN 325 MG TAB PO SCH (20:29)
[2023-11-28] MEDS: GABAPENTIN 300 MG CAP PO SCH (20:29)
[2023-11-28] MEDS: QUEtiapine FUMARATE 25 MG TABLET PO SCH (20:29)
[2023-11-28] MEDS: ATORVASTATIN 40 MG TAB PO SCH (20:29)
[2023-11-28] MEDS: METOPROLOL TARTRATE 50 MG TAB PO SCH (20:29)
[2023-11-28] MEDS: TICAGRELOR 90 MG TAB PO SCH (20:29)
[2023-11-28] MEDS: LORazepam 0.5 MG TAB PO SCH (20:29)
[2023-11-28] MEDS: METHENAMINE HIPPURATE 1 GM TAB PO SCH (20:29)
[2023-11-28] MEDS: DICLOFENAC SOD 1% GEL 100 GM TUBE EXT SCH (20:31)
[2023-11-28 21:20] LABS: Calcium 8.9 mg/dl (8.6-10.3); Creatinine Clr Calc Pharmacy 26.9 ml/min; Potassium 5.7 mmol/L (3.5-5.1)
[2023-11-28] MEDS: CHOLESTYRAMINE LIGHT 4 GM PKT PO SCH (21:47)
[2023-11-29 06:45] LABS: Hematocrit (blood only) 28.6 % (37.0-47.0); Hemoglobin 9.4 g/dl (12.0-16.0); Mean Corpuscular Hemoglobin 28.6 pg (25.0-34.0); Mean Corpuscular Hgb Conc 32.9 g/dL (32.0-36.0); Mean Corpuscular Volume 86.9 fL (80.0-100.0); Mean Platelet Volume 9.6 fL (9.4-12.4); Platelet Count 167 K/uL (130-400); RDW Coefficient of Variation 14.1 % (11.5-14.5); RDW Standard Deviation 45.4 fL (36.4-46.3); Red Blood Count 3.29 M/uL (4.20-5.40); White Blood Count 5.07 K/ul (4.8-10.8)
[2023-11-29 07:03] LABS: BUN Creatinine Ratio 38.7 (10-20); Calcium 8.9 mg/dl (8.6-10.3); Creatinine Clr Calc Pharmacy 38.1 ml/min; Est GFR (African American) 55.5 ml/min; Est GFR (Non-African American) 47.9 ml/min; Magnesium 1.7 mg/dl (1.7-2.4); Potassium 5.8 mmol/L (3.5-5.1)
[2023-11-29 07:11] LABS: Basophils # (auto) 0.01 K/uL (0.00-0.20); Basophils % (auto) 0.2 %; Eosinophils # (auto) 0.01 K/uL (0.00-0.50); Eosinophils % (auto) 0.2 %; Immature Granulocytes # (auto) 0.02 K/uL (0.01-0.20); Immature Granulocytes % (auto) 0.4 %; Lymphocytes # (auto) 0.74 K/uL (1.20-3.40); Lymphocytes % (auto) 14.6 %; Monocytes # (auto) 0.58 K/uL (0.11-0.59); Monocytes % (auto) 11.4 %; Neutrophils # (auto) 3.71 K/uL (1.40-6.50); Neutrophils % (auto) 73.2 %; RBC Morphology Unremarkable
[2023-11-29] MEDS ORDERED: PANTOprazole 40 MG TAB PO SCH (09:00)
[2023-11-29] MEDS: ASPIRIN 81 MG ECTAB PO SCH (09:16)
[2023-11-29] MEDS: ISOSORBIDE MONO EXTENDED REL 60 MG TABCR PO SCH (09:17)
[2023-11-29] MEDS: CITALOPRAM 20 MG TAB PO SCH (09:17)
[2023-11-29] MEDS: OXYBUTYNIN CHLORIDE XL 5 MG TABCR PO SCH (09:18)
[2023-11-29] MEDS: BUDESONIDE EC 3 MG CAP PO SCH (09:18)
[2023-11-29] MEDS: MAGNESIUM CHLORIDE W/CALCIUM 64MG DELAYED REL TAB PO SCH (09:18)
[2023-11-29] MEDS: PANTOprazole 40 MG TAB PO SCH (09:18)
[2023-11-29] MEDS: POLYETHYLENE (MIRALAX) 17 GM PACK PO SCH (09:20)
[2023-11-29 09:23] LABS: Estimated Average Glucose 126 mg/dl
[2023-11-29] MEDS: LANTUS PER UNIT CHARGE SQ SCH (09:24)
--- NOTE | 2023-11-29 12:51 | Hospitalist Progress Note ---
Date of Service November 29, 2023 Assessment & Plan (1) C. difficile colitis: Plan: Admitted on account of Worsening diarrhea x 1 week Hx of recent hospitalizations with ongoing diarrhea C. difficile gene positive on arrival; toxin pending No leukocytosis; afebrile Will start patient on vancomycin 125 mg p.o. q6h Contact isolation precautions Hold loperamide A.m. CBC, BMP (2) Lymphocytic colitis: Plan: Biopsy-proven lymphocytic colitis dx on 10/20/23 Restart patient on budesonide 9 mg daily Patient needs to be on this medication for 6-8 weeks After clinical remission (<3 stools daily and no watery stools), start gradual taper Cholestyramine BID (3) YAKOV (acute kidney injury): Plan: BUN 56, creatinine 2.02 (baseline 0.97), EGFR 23.2 Avoid nephrotoxic agents where possible NSS 1000mL + LR 1000mL bolus, then continue with LR at 80mL/hr x 1 L Dose reduce gabapentin from 900-->300 mg TID Hold lisinopril, spironolactone Trend BMP q4h (4) Hyperkalemia: Plan: Potassium 5.9 on arrival, 5.8 this morning In the setting of YAKOV Calcium gluconate 1000 mg IV Add Lokelma (5) History of CAD (coronary artery disease): Plan: S/p STEMI with MAUREEN placed to LCx in March 2023 Continue ASA, Brilinta, metoprolol, atorvastatin (6) Diabetes mellitus, type 2: Plan: Last A1c at 6.7% on 03/19/23 Lantus 5u QAM SSI; with target BSG range 110-140mg/dL, CF 50, carb ratio 15 T2DM diet BSG ACHS Adjust regimen as needed AM A1c (7) Sleep apnea: Plan: CPAP HS Plan Disposition: monitor in the hospital DNR/DNI T2DM diet VTE PPx: Heparin 5000u SQ q12h Admission and Anticipated Discharge Date Admission Date: November 28, 2023 Subjective patient seen and examined, frustrated on her frequent hopsital visits, no episode of diarrhea today so far Review of Systems Review of Systems: All systems reviewed are negative, apart from the ones contained in the history. Physical Exam Physical Exam: The patient is awake, alert and oriented 3, well developed and well nourished, normocephalic and atraumatic, lying in bed and in no acute distress. HEENT--PERRL, EOMI, mucous membranes and oropharynx mildly dry Neck--supple. No JVD. No bruits. Thyroid normal, trachea midline, no adenopathy. Heart--normal S1 and S2. No murmurs, rubs or gallops. Lungs--clear bilaterally, no respiratory distress, no accessory muscle use. Abdomen--normal bowel sounds and soft. Extremities--no cyanosis or clubbing. No edema. Dermatologic--normal skin turgor, normal color, no abnormal lymph nodes, no rash. Neurologic--cranial nerves II through XII grossly intact. Rheumatologic--normal range of motion. Psychiatric--normal affect. Results & Data Results & Data Vital Signs (Past 12 Hours) Vital Signs Temp Pulse Pulse Resp BP Pulse Ox O2 Del Method 11/29/23 11:28 97.9 F 104 H 18 138/75 96 Room Air 11/29/23 07:20 98.1 F 92 H 18 123/57 L 98 BiPAP 11/29/23 07:12 90 11/29/23 04:42 97.9 F 98 H 18 159/77 H 98 Room Air 11/29/23 02:19 99 H 17 98 FiO2 11/29/23 11:28 11/29/23 07:20 11/29/23 07:12 11/29/23 04:42 11/29/23 02:19 21 PG Care Time/CCT Total # of Minutes Spent Total Time Spent with Patient: Total time spent is greater than 50% in coordination of care (as documented) at patient's floor/unit and/or counseling patient: Coding Level of Care Code 88473 SUB INP/OBS CARE 2/35MIN Diagnoses C. difficile colitis A04.72 Lymphocytic colitis K52.832 YAKOV (acute kidney injury) N17.9 Hyperkalemia E87.5 History of CAD (coronary artery disease) Z86.79 Diabetes mellitus, type 2 E11.9 Sleep apnea G47.30 Time Spent (min) 35
[2023-11-29] MEDS: SODIUM ZIRCONIUM CYCLOSILICATE 10 GM PACKET PO SCH (17:51)
[2023-11-30 03:14] VITALS: O2SAT 97
[2023-11-30 04:43] LABS: Basophils # (auto) 0.01 K/uL (0.00-0.20); Basophils % (auto) 0.2 %; Eosinophils # (auto) 0.03 K/uL (0.00-0.50); Eosinophils % (auto) 0.6 %; Hematocrit (blood only) 28.6 % (37.0-47.0); Immature Granulocytes # (auto) 0.03 K/uL (0.01-0.20); Immature Granulocytes % (auto) 0.6 %; Lymphocytes # (auto) 1.04 K/uL (1.20-3.40); Lymphocytes % (auto) 20.5 %; Mean Corpuscular Hgb Conc 31.5 g/dL (32.0-36.0); Mean Corpuscular Volume 89.1 fL (80.0-100.0); Mean Platelet Volume 9.6 fL (9.4-12.4); Monocytes # (auto) 0.57 K/uL (0.11-0.59); Monocytes % (auto) 11.2 %; Neutrophils # (auto) 3.39 K/uL (1.40-6.50); Neutrophils % (auto) 66.9 %; Platelet Count 183 K/uL (130-400); RDW Coefficient of Variation 14.3 % (11.5-14.5); RDW Standard Deviation 46.2 fL (36.4-46.3); Red Blood Count 3.21 M/uL (4.20-5.40); White Blood Count 5.07 K/ul (4.8-10.8)
[2023-11-30 04:48] LABS: BUN Creatinine Ratio 27.8 (10-20); Calcium 8.9 mg/dl (8.6-10.3); Creatinine Clr Calc Pharmacy 36.8 ml/min; Est GFR (African American) 53.2 ml/min; Est GFR (Non-African American) 45.9 ml/min; Magnesium 1.7 mg/dl (1.7-2.4); Potassium 4.7 mmol/L (3.5-5.1)
[2023-11-30 07:55] VITALS: RESP 16; TEMP 97.5
[2023-11-30 12:17] VITALS: BP 129/77; PULSE 102
--- NOTE | 2023-11-30 14:21 | Discharge Summary ---
Date of Service November 30, 2023 Admission HPI Per Admitting Provider Stefany is a 78-year-old female with PMH of T2DM, pressure ulcer, radiculopathy, stage III CKD, CAD, glaucoma, sleep apnea, GERD, overactive bladder, and urinary incontinence. She presented via EMS from [facility] on 11/27 for recurrence of diarrhea that began on Wednesday 11/22. Patient reports multiple hospital admissions recently for gastro issues. She was having diarrhea for 5 weeks, then had constipation for 1 week, and now the diarrhea is back. She did have a colonoscopy performed, but was told that it was largely unremarkable. Recurrence of watery diarrhea started on Thursday; no blood in stool; no solid stool in between episodes of diarrhea; mediumtan color. She had 3 episodes of diarrhea this morning before lunch. She has had very little to eat or drink recently. Patient reportedly has a history of C. difficile colitis, but she does not recall this. She has an upcoming appointment with gastroenterology on December 16. Patient reports that she took her regular morning medications today including her insulin; no recent change in medications. She does not manage her own medicine at home. No episodes of fecal or urinary incontinence. No smoking, tobacco use, or alcohol use. Patient is concerned that she may have left her glasses in the ambulance. Patient's vitals are stable at time of admission. ED course: NSS 1000 mL IV ROS: Patient endorses diarrhea x 5 days, waking up feeling soaked, dizziness/lightheadedness, abdominal discomfort in the LLQ, nausea, and liquidy diarrhea. Patient denies fever, chills, headaches, chest pain, SOB, vomiting, change in urinary habits, burning with urination, blood in urine/stool, melena, Admission Exam (Per Admitting) Constitutional The patient is awake, alert and oriented 3, well developed and well nourished, normocephalic and atraumatic, lying in bed and in no acute distress. HEENT--PERRL, EOMI, mucous membranes and oropharynx mildly dry Neck--supple. No JVD. No bruits. Thyroid normal, trachea midline, no adenopathy. Heart--normal S1 and S2. No murmurs, rubs or gallops. Lungs--clear bilaterally, no respiratory distress, no accessory muscle use. Abdomen--normal bowel sounds and soft. Extremities--no cyanosis or clubbing. No edema. Dermatologic--normal skin turgor, normal color, no abnormal lymph nodes, no rash. Neurologic--cranial nerves II through XII grossly intact. Rheumatologic--normal range of motion. Psychiatric--normal affect. Discharge Data Consultations 11/28/23 14:59 ED Decision to Admit Stat Hospital Course (1) C. difficile colitis: Admitted on account of Worsening diarrhea x 1 week Hx of recent hospitalizations with ongoing diarrhea C. difficile gene positive on arrival; toxin negative No leukocytosis; afebrile Discontinued oral vanc (2) Lymphocytic colitis: Biopsy-proven lymphocytic colitis dx on 10/20/23 Restart patient on budesonide 9 mg daily Patient needs to be on this medication for 6-8 weeks After clinical remission (<3 stools daily and no watery stools), start gradual taper Cholestyramine BID (3) YAKOV (acute kidney injury): Resolved (4) Hyperkalemia: Resolved (5) History of CAD (coronary artery disease): S/p STEMI with MAUREEN placed to LCx in March 2023 Continue ASA, Brilinta, metoprolol, atorvastatin (6) Diabetes mellitus, type 2: Last A1c at 6.7% on 03/19/23 Lantus 5u QAM SSI; with target BSG range 110-140mg/dL, CF 50, carb ratio 15 T2DM diet BSG ACHS Adjust regimen as needed AM A1c (7) Sleep apnea: CPAP HS Plan Disposition:d/c DNR/DNI T2DM diet VTE PPx: Heparin 5000u SQ q12h Coding Level of Care Code 57084 INP/OBS DISCH >30 MIN Diagnoses C. difficile colitis A04.72 Lymphocytic colitis K52.832 YAKOV (acute kidney injury) N17.9 Hyperkalemia E87.5 History of CAD (coronary artery disease) Z86.79 Diabetes mellitus, type 2 E11.9 Sleep apnea G47.30 Time Spent (min) 35
--- NOTE | 2023-12-01 05:28 | Electrocardiogram Report ---
Test Reason : Blood Pressure : */* mmHG Vent. Rate : 97 BPM Atrial Rate : 97 BPM P-R Int : 158 ms QRS Dur : 134 ms QT Int : 362 ms P-R-T Axes : 63 12 25 degrees QTcB Int : 459 ms Normal sinus rhythm Right bundle branch block Abnormal ECG When compared with ECG of 24-Sep-2023 12:02, QT has shortened Confirmed by Antonio Angel ([id number] on 12/01/2023 5:28:24 AM Referred By: REFERRED SELF Confirmed By: Antonio Angel
== END 2023-11-30 14:19 | disposition home or self-care (01) | DRG 372 ==
LOC: ED 12:51 → INTOOBSV 15:32 → 2W 15:32 → SUATTDRO 15:32 → 2W 16:23

== ENCOUNTER 2023-12-12 10:46 | Inpatient (IN) ==
[2023-12-12 11:12] LABS: Basophils # (auto) 0.06 K/uL (0.00-0.20); Basophils % (auto) 0.8 %; Eosinophils # (auto) 0.09 K/uL (0.00-0.50); Eosinophils % (auto) 1.2 %; Hematocrit (blood only) 30.9 % (37.0-47.0); Hemoglobin 9.7 g/dl (12.0-16.0); Immature Granulocytes # (auto) 0.03 K/uL (0.01-0.20); Immature Granulocytes % (auto) 0.4 %; Lymphocytes # (auto) 1.49 K/uL (1.20-3.40); Lymphocytes % (auto) 19.9 %; Mean Corpuscular Hemoglobin 28.2 pg (25.0-34.0); Mean Corpuscular Hgb Conc 31.4 g/dL (32.0-36.0); Mean Corpuscular Volume 89.8 fL (80.0-100.0); Mean Platelet Volume 9.4 fL (9.4-12.4); Monocytes # (auto) 0.55 K/uL (0.11-0.59); Monocytes % (auto) 7.3 %; Neutrophils # (auto) 5.28 K/uL (1.40-6.50); Neutrophils % (auto) 70.4 %; Platelet Count 228 K/uL (130-400); RDW Coefficient of Variation 14.8 % (11.5-14.5); RDW Standard Deviation 47.8 fL (36.4-46.3); Red Blood Count 3.44 M/uL (4.20-5.40)
--- NOTE | 2023-12-12 11:29 | Emergency Department Note ---
Impression & Plan Gait instability, Closed head injury ED Provider Note NAME: SHENG SINGH AGE: 78 SEX: F : 1945 ARRIVES VIA: Ambulance INFORMANT: Patient, ED PROVIDER(S): Heriberto Sanford MD CHIEF COMPLAINT: Fall, head strike HPI: This is a 78-year-old presenting as a trauma alert. Patient reportedly had a fall at her nursing facility. She fell backward striking the back of her head. She does not member this fall. She is on a blood thinner. She notes minimal pain at this time. She notes that she fell yesterday and was here for similar. She notes she has had multiple ER/hospital admissions and was at rehab previously. She does not know why she fell today. ROS: See above HPI for pertinent positives & negatives. A total of 10 systems reviewed and were otherwise negative. PAST MEDICAL HISTORY: See Below PAST SURGICAL HISTORY: See Below FAMILY HISTORY: See Below SOCIAL HISTORY: See Below HOME MEDICATIONS: See Below ALLERGIES: See Below VITALS: See Below PHYSICAL EXAMINATION: General: resting comfortably in no acute distress Head: Normocephalic small abrasion to the posterior scalp with hematoma Eyes: Normal inspection, extraocular muscles intact Ear, nose, throat: Normal external exam Neck: Normal range of motion Respiratory: lungs clear to auscultation bilaterally Cardiovascular: Regular rate/rhythm, no murmur GI: soft, nontender, no guarding or rebound Extremities: nontender, moves all extremities Neuro: The patient awake and alert, appropriately conversive, no focal deficits, symmetric faces Skin: Warm, dry, and intact MEDICAL DECISION MAKING: This is a 78-year-old female presenting as a trauma alert. Will do CT of the head/C-spine due to the new fall. She reports no new chest, back pain. The hip x-ray as she does report some slight hip pain which she states is similar to yesterday when she fell. -Hip x-ray reveals no signs of osseous fracture or dislocation -CT head and C-spine are negative for acute traumatic injury -Reviewed showing slight anemia but otherwise no significant electrolyte disturbances. -Patient has had numerous falls in the past 2 days, unstable on her feet. The patient would benefit from admission for further PT and workup. -Discussed with Dr Carter for admission Differential diagnosis: Intracranial hemorrhage, cervical spine fracture, vertigo, dehydration ER treatment provided: See below Diagnostics interpreted by me: ECG: ECG independently interpreted by me with normal sinus rhythm, rate of 82 with normal axis normal OK, right bundle branch block, normal QTc, no ST segment elevations consistent with STEMI criteria Cardiac Monitoring: An order was placed for continuous cardiac monitoring. The monitor shows a rate of 84 with sinus rhythm. Laboratory studies: As stated above and show below. Imaging studies: See below. Past Med/Surg History Problem List (Updated 12/13/23 @ 19:48 by Heriberto Sanford MD) Closed head injury (Acute) Current use of group home anticoagulation (Acute) Trauma (Acute) Closed injury of head (Acute) Fall (Acute) Diarrhea (Acute) Metabolic acidosis (Acute) Diabetes mellitus, type 2 IDDM History of CAD (coronary artery disease) Hyperkalemia Chronic diarrhea Lower back pain Lymphocytic colitis (Acute) Hypokalemia Hypomagnesemia Diarrhea (Acute) Abdominal pain (Acute) Acute UTI (Acute) Acute dehydration (Acute) YAKOV (acute kidney injury) (Acute) Hypermagnesemia Gait instability (Acute) Imbalance Urinary incontinence Anemia (Acute) Chest pain (Acute) Chest pain Diabetic retinopathy associated with type 2 diabetes mellitus Left nephrolithiasis Overactive bladder GERD (gastroesophageal reflux disease) hx Sleep apnea cpap nightly with 3lpm of oygen Depression Per records Glaucoma CAD (coronary artery disease) Occlusion of distal portion of left circumflex coronary artery Proteinuria Chronic kidney disease, stage 3a Vitamin D deficiency Diabetic nephropathy associated with type 2 diabetes mellitus Enteritis, inflammatory disorder of small intestine (Chronic Unknown) Fatigue (Acute) Generalized weakness (Acute) Knee pain (Acute) Radiculopathy, lumbar region Spinal stenosis of lumbar region Hypertension DVT prophylaxis Toe ulcer Pressure ulcer, stage III (Acute) Diabetes mellitus type 2 in obese Dyslipidemia Statin myopathy Peripheral neuropathy Hyponatremia Medical History C. difficile colitis YAKOV (acute kidney injury) Anemia Weight loss, non-intentional Anemia UTI (urinary tract infection) YAKOV (acute kidney injury) History of recurrent UTI (urinary tract infection) Insomnia Per records Neuropathy per patient- hands and feet Hypertension Per records History of macular degeneration Chronic back pain Neurogenic claudication due to lumbar spinal stenosis History of nephrolithiasis Nasal bone fracture Cholecystitis, acute Surgical History Status post spinal surgery History of bilateral tubal ligation Hx of total knee arthroplasty bilateral S/P epidural steroid injection History of cholecystectomy History of colonoscopy History of cornea transplant bilateral History of cataract surgery bilateral History of appendectomy Family History Mother Breast cancer Aunt Colorectal cancer Diabetes Father Myocardial infarction Other No family history of adverse response to anesthesia No pertinent family history Denies family history of Ovarian cancer Prostate cancer Social History Smoking Status: Former smoker Tobacco Type: Cigarettes Age Quit Using Tobacco: 64; Cigarettes Per Day: 2 packs/day; Smoking End Date: 15 years ago; Second Hand Exposure: No; Do You Dip or Chew Tobacco: No; Hx Alcohol Use: No Hx Substance Use: No Preferred Language: Georgian Communication Ability: Effective Visual Impairment: No Limitations Hearing Ability: Normal Director Of Counterintelligence Required: No Beliefs That Will Affect Care: None marital status: Current Living Situation: Personal Care Facility Current Living Situation Comment: [facility] current occupational status: retired current occupation: Retired How many Children do You have: 2 Feels Safe at Home: Yes Safety Concerns: Feels Safe At This Time Childhood Exposure to Second-Hand Smoke: No Diet: regular caffeine: No during the past year weight has: remained stable Dental Care, Regularly: Yes Physical Activity Frequency: Does not Exercise Seatbelt Use: sometimes Sunscreen Use: Yes Assistive Devices: CPAP, Oxygen - at Night and Walker Allergies Allergies Allergy/AdvReac Type Severity Reaction Status Date / Time latex Allergy Mild ON [facility] Verified 12/11/23 09:21 LIST-per patient- thinks rash niacin Allergy Unknown ON [facility] Verified 12/11/23 09:21 [From [facility] MED LIST Extended-Release] simvastatin Allergy Unknown ON Verified 12/11/23 09:21 [facility] LIST- unsure Home Meds Home Medications Medication Instructions Recorded Confirmed glucose 4 gram chewable tablet 1 tab PO DAILY PRN HYPOGLYCEMIA 11/26/17 12/12/23 tolterodine 2 mg tablet 2 mg PO .DAILY@0730,2100 11/26/17 12/12/23 acetaminophen 325 mg tablet 650 mg PO Q6H PRN Fever Or Pain 06/12/18 12/12/23 (Tylenol) nystatin 100,000 unit/gram topical 1 applic topical BID PRN RASH IN 11/24/22 12/12/23 cream ABD FOLDS NEEDED hydrocortisone 1 % topical cream 1 applic topical BID PRN Rash 05/09/23 12/12/23 lisinopril 40 mg tablet 40 mg PO .DAILY@72905/09/23 12/12/23 vit C 250 mg-vit E 90 mg-zinc 40 1 tab PO .DAILY@05/09/23 12/12/23 mg-copper 1 [id number] capsule (PreserVision AREDS-2) isosorbide mononitrate 60 mg 60 mg PO .DAILY@72909/24/23 12/12/23 tablet,extended release 24 hr nystatin 100,000 unit/gram topical 1 applic topical BID PRN Rash 09/24/23 12/12/23 powder quetiapine 25 mg tablet 25 mg PO .DAILY@72909/24/23 12/12/23 amoxicillin 500 mg capsule 2,000 mg PO DIRECTED PRN 1 HOUR 09/29/23 12/12/23 PRIOR TO DENTAL VISIT insulin lispro 100 unit/mL 3 unit subcut TIDM 10/16/23 12/12/23 subcutaneous pen (Humalog KwikPen (U-100) Insulin) Qc Natural Veggie 95% Powder 1 tsp PO DAILY PRN Constipation 11/28/23 12/12/23 insulin glargine 100 unit/mL (3 5 unit subcut .DAILY@79911/28/23 12/12/23 mL) subcutaneous pen (Lantus Solostar U-100 Insulin) loperamide 2 mg capsule 2 mg PO QID PRN loose stool 11/28/23 12/12/23 magnesium chloride 64 mg 64 mg PO DAILY 11/28/23 12/12/23 (magnesium chloride) tablet,delayed release (Mag 64) methenamine hippurate 1 gram tablet 1 g PO .DAILY@11/28/23 12/12/23 metoprolol tartrate 50 mg tablet 50 mg PO .DAILY@11/28/23 12/12/23 oxycodone 5 mg tablet 5 mg PO Q6H PRN Pain 11/28/23 12/12/23 pantoprazole 40 mg tablet,delayed 40 mg PO DAILY 11/28/23 12/12/23 release (Protonix) polyethylene glycol 3350 17 gram 8.5 g PO .DAILY@0730 constipation 11/28/23 12/12/23 oral powder packet polyethylene glycol 3350 17 17 g PO BID PRN Constipation 11/28/23 12/12/23 gram/dose oral powder (Miralax) spironolactone 25 mg tablet 25 mg PO .DAILY@730,2100 11/28/23 12/12/23 timolol 0.5 % eye drops 1 drp OPB .DAILY@72911/28/23 12/12/23 triamcinolone acetonide 0.1 % 1 applic topical BID 11/28/23 12/12/23 topical ointment lorazepam 0.5 mg tablet 0.5 mg PO DAILY Sleep 12/11/23 12/12/23 Previous Rx's Medication Instructions Recorded melatonin 10 mg capsule 10 mg PO HS sleep #30 caps 08/04/23 magnesium citrate 150 ml PO DAILY PRN No BM x 2 days 11/23/23 #296 mL aspirin 81 mg tablet,delayed 81 mg PO 0730 30 days #30 tabs 11/30/23 release atorvastatin 40 mg tablet 40 mg PO HS 30 days #30 tabs 11/30/23 budesonide 3 mg 9 mg (3 x 3 mg) PO QAM 30 days #90 11/30/23 capsule,delayed,extended release ea cholestyramine-aspartame 4 gram 1 ea PO BID@1000,2200 30 days #60 11/30/23 oral powder for susp in a packet ea (Prevalite) citalopram 20 mg tablet 20 mg PO 0730 30 days #30 tabs 11/30/23 hydrocodone 5 mg-acetaminophen 325 1 tab PO DAILY PRN pain #7 tabs 11/30/23 mg tablet ticagrelor 90 mg tablet (Brilinta) 90 mg PO BID@0730,2100 30 days #60 11/30/23 tabs Trulicity 4.5 mg/0.5 mL 4.5 mg (0.5 mL) subcut Q7D #2 mL 12/04/23 subcutaneous pen injector (dulaglutide) gabapentin 300 mg capsule 300 mg PO TID #270 caps 12/11/23 Results & Data (ED) Vital Signs Vital Signs - 24 hr 12/12/23 20:03 12/12/23 20:04 12/12/23 23:56 Temperature 36.5 C 37.0 C Temperature Source Oral Oral Pulse Rate Pulse Rate [Apical] 87 86 Respiratory Rate 17 18 Respiratory Effort / Characteristics Respiratory Depth Respiratory Pattern Blood Pressure [Left Arm] 121/65 Blood Pressure [Right Arm] 114/67 Blood Pressure Mean [Left Arm] 83 Blood Pressure Mean [Right Arm] 82 Blood Pressure Position [Left Arm] Semi-fowlers Blood Pressure Position [Right Arm] Semi-fowlers Pulse Oximetry 98 98 Oxygen Delivery Method Room Air Room Air Fraction of Inspired Oxygen EWS Level of Consciousness - Last Result Spontaneously Alert EWS Temperature - Last Result 36.5 EWS Respiratory Rate - Last Result 17 EWS Oxygen Saturation - Last Result 98 EWS Oxygen in Use - Last Result No EWS Score 0 EWS Clinical Risk Low Risk 12/12/23 23:57 12/13/23 00:34 12/13/23 00:37 Temperature Temperature Source Pulse Rate 86 90 Pulse Rate [Apical] Respiratory Rate 16 Respiratory Effort / Characteristics Non-Labored Spontaneous Respiratory Depth Normal Respiratory Pattern Regular Blood Pressure [Left Arm] Blood Pressure [Right Arm] Blood Pressure Mean [Left Arm] Blood Pressure Mean [Right Arm] Blood Pressure Position [Left Arm] Blood Pressure Position [Right Arm] Pulse Oximetry 99 Oxygen Delivery Method Fraction of Inspired Oxygen 21 EWS Level of Consciousness - Last Result Spontaneously Alert EWS Temperature - Last Result 37.0 EWS Respiratory Rate - Last Result 18 EWS Oxygen Saturation - Last Result 98 EWS Oxygen in Use - Last Result No EWS Score 0 EWS Clinical Risk Low Risk 12/13/23 03:23 12/13/23 04:25 12/13/23 04:26 Temperature 36.4 C L Temperature Source Axillary Pulse Rate Pulse Rate [Apical] 79 Respiratory Rate 22 18 Respiratory Effort / Characteristics Respiratory Depth Respiratory Pattern Blood Pressure [Left Arm] Blood Pressure [Right Arm] 128/73 Blood Pressure Mean [Left Arm] Blood Pressure Mean [Right Arm] 91 Blood Pressure Position [Left Arm] Blood Pressure Position [Right Arm] Semi-fowlers Pulse Oximetry 98 98 Oxygen Delivery Method CPAP Fraction of Inspired Oxygen 21 EWS Level of Consciousness - Last Result Spontaneously Alert EWS Temperature - Last Result 36.4 EWS Respiratory Rate - Last Result 18 EWS Oxygen Saturation - Last Result 98 EWS Oxygen in Use - Last Result Yes EWS Score 0 EWS Clinical Risk Low Risk 12/13/23 06:57 12/13/23 07:00 12/13/23 08:12 Temperature 36.7 C Temperature Source Oral Pulse Rate 87 Pulse Rate [Apical] 86 88 Respiratory Rate 18 Respiratory Effort / Characteristics Respiratory Depth Respiratory Pattern Blood Pressure [Left Arm] 125/71 Blood Pressure [Right Arm] Blood Pressure Mean [Left Arm] 89 Blood Pressure Mean [Right Arm] Blood Pressure Position [Left Arm] Lying Blood Pressure Position [Right Arm] Pulse Oximetry 98 Oxygen Delivery Method Room Air Fraction of Inspired Oxygen EWS Level of Consciousness - Last Result EWS Temperature - Last Result EWS Respiratory Rate - Last Result EWS Oxygen Saturation - Last Result EWS Oxygen in Use - Last Result EWS Score EWS Clinical Risk 12/13/23 09:00 Temperature Temperature Source Pulse Rate Pulse Rate [Apical] Respiratory Rate Respiratory Effort / Characteristics Non-Labored Respiratory Depth Respiratory Pattern Blood Pressure [Left Arm] Blood Pressure [Right Arm] Blood Pressure Mean [Left Arm] Blood Pressure Mean [Right Arm] Blood Pressure Position [Left Arm] Blood Pressure Position [Right Arm] Pulse Oximetry Oxygen Delivery Method Room Air CPAP Fraction of Inspired Oxygen EWS Level of Consciousness - Last Result EWS Temperature - Last Result EWS Respiratory Rate - Last Result EWS Oxygen Saturation - Last Result EWS Oxygen in Use - Last Result EWS Score EWS Clinical Risk Laboratory Data 12/13/23 05:42 12/13/23 14:41 Lab Results 12/12/23 12/12/23 12/12/23 Range/Units 10:57 16:24 20:21 WBC 7.50 (4.8-10.8) K/ul RBC 3.44 L (4.20-5.40) M/uL Hgb 9.7 L (12.0-16.0) g/dl Hct 30.9 L (37.0-47.0) % MCV 89.8 (80.0-100.0) fL MCH 28.2 (25.0-34.0) pg MCHC 31.4 L (32.0-36.0) g/dL RDW Std Deviation 47.8 H (36.4-46.3) fL RDW Coeff of Brian 14.8 H (11.5-14.5) % Plt Count 228 (130-400) K/uL MPV 9.4 (9.4-12.4) fL Immature Gran % (Auto) 0.4 % Neut % (Auto) 70.4 % Lymph % (Auto) 19.9 % [place] % (Auto) 7.3 % Eos % (Auto) 1.2 % Baso % (Auto) 0.8 % Neut # (Auto) 5.28 (1.40-6.50) K/uL Lymph # (Auto) 1.49 (1.20-3.40) K/uL [place] # (Auto) 0.55 (0.11-0.59) K/uL Eos # (Auto) 0.09 (0.00-0.50) K/uL Baso # (Auto) 0.06 (0.00-0.20) K/uL Immature Gran # (Auto) 0.03 (0.01-0.20) K/uL Sodium 136 (136-145) mmol/L Potassium 5.0 (3.5-5.1) mmol/L Chloride 112 H (98-107) mmol/L Carbon Dioxide 18 L (21-32) mmol/L Anion Gap 6 (3-11) BUN 30 H (6-23) mg/dl Creatinine 1.07 (0.6-1.2) mg/dl Est Cr Clr Drug Dosing 41.2 ml/min Est GFR ( Amer) 58.0 ml/min Est GFR (Non-Af Amer) 50.0 ml/min BUN/Creatinine Ratio 28.0 H (10-20) Glucose 90 (70-99(Fasting)) mg/dl POC Glucose 96 128 H (70-99) mg/dl Calcium 9.1 (8.6-10.3) mg/dl Total Bilirubin 0.5 (0.2-1.0) mg/dl Direct Bilirubin 0.1 (0-0.2) mg/dl AST 17 (13-39) U/L ALT 19 (7-52) U/L Alkaline Phosphatase 113 H (34-104) U/L Troponin I High Sens 4.8 (0-14) pg/ml Total Protein 6.4 (6.0-8.3) gm/dl Albumin 3.9 (3.4-5.0) gm/dl Lipase 160 H (11-82) U/L Urine Color Urine Appearance (Clear) Urine pH (4.5-7.5) Ur Specific [place] (1.000-1.030) Urine Protein (Negative) Urine Glucose (UA) (Negative) Urine Ketones (Negative) Urine Blood (Negative) Urine Nitrite (Negative) Urine Bilirubin (Negative) Urine Urobilinogen (Negative) Ur Leukocyte Esterase (Negative) Urine WBC (Auto) (0-5) /hpf Urine RBC (Auto) (0-2) /hpf U Hyaline Cast (Auto) (0-2) /lpf U Epithel Cells (Auto) (0-2) /hpf Urine Bacteria (Auto) (None Seen) Nasal Screen MRSA (PCR) (Negative) 12/12/23 12/13/23 12/13/23 Range/Units Unknown 05:42 06:24 WBC 7.67 (4.8-10.8) K/ul RBC 3.32 L (4.20-5.40) M/uL Hgb 9.5 L (12.0-16.0) g/dl Hct 29.8 L (37.0-47.0) % MCV 89.8 (80.0-100.0) fL MCH 28.6 (25.0-34.0) pg MCHC 31.9 L (32.0-36.0) g/dL RDW Std Deviation 47.5 H (36.4-46.3) fL RDW Coeff of Brian 14.7 H (11.5-14.5) % Plt Count 227 (130-400) K/uL MPV 9.9 (9.4-12.4) fL Immature Gran % (Auto) 0.4 % Neut % (Auto) 72.3 % Lymph % (Auto) 18.8 % [place] % (Auto) 7.0 % Eos % (Auto) 0.8 % Baso % (Auto) 0.7 % Neut # (Auto) 5.55 (1.40-6.50) K/uL Lymph # (Auto) 1.44 (1.20-3.40) K/uL [place] # (Auto) 0.54 (0.11-0.59) K/uL Eos # (Auto) 0.06 (0.00-0.50) K/uL Baso # (Auto) 0.05 (0.00-0.20) K/uL Immature Gran # (Auto) 0.03 (0.01-0.20) K/uL Sodium 137 (136-145) mmol/L Potassium 5.2 H (3.5-5.1) mmol/L Chloride 110 H (98-107) mmol/L Carbon Dioxide 22 (21-32) mmol/L Anion Gap 5 (3-11) BUN 28 H (6-23) mg/dl Creatinine 0.97 (0.6-1.2) mg/dl Est Cr Clr Drug Dosing 45.5 ml/min Est GFR ( Amer) 65.3 ml/min Est GFR (Non-Af Amer) 56.3 ml/min BUN/Creatinine Ratio 28.9 H (10-20) Glucose 73 (70-99(Fasting)) mg/dl POC Glucose (70-99) mg/dl Calcium 9.0 (8.6-10.3) mg/dl Total Bilirubin (0.2-1.0) mg/dl Direct Bilirubin (0-0.2) mg/dl AST (13-39) U/L ALT (7-52) U/L Alkaline Phosphatase (34-104) U/L Troponin I High Sens (0-14) pg/ml Total Protein (6.0-8.3) gm/dl Albumin (3.4-5.0) gm/dl Lipase (11-82) U/L Urine Color Yellow Urine Appearance Clear (Clear) Urine pH 5.5 (4.5-7.5) Ur Specific [place] 1.010 (1.000-1.030) Urine Protein Negative (Negative) Urine Glucose (UA) Negative (Negative) Urine Ketones Negative (Negative) Urine Blood Negative (Negative) Urine Nitrite Positive A (Negative) Urine Bilirubin Negative (Negative) Urine Urobilinogen Negative (Negative) Ur Leukocyte Esterase 1+ H (Negative) Urine WBC (Auto) 11-20 H (0-5) /hpf Urine RBC (Auto) 0-2 (0-2) /hpf U Hyaline Cast (Auto) 0-2 (0-2) /lpf U Epithel Cells (Auto) 0-2 (0-2) /hpf Urine Bacteria (Auto) 4+ H (None Seen) Nasal Screen MRSA (PCR) Negative (Negative) 12/13/23 12/13/23 Range/Units 07:44 11:06 WBC (4.8-10.8) K/ul RBC (4.20-5.40) M/uL Hgb (12.0-16.0) g/dl Hct (37.0-47.0) % MCV (80.0-100.0) fL MCH (25.0-34.0) pg MCHC (32.0-36.0) g/dL RDW Std Deviation (36.4-46.3) fL RDW Coeff of Brian (11.5-14.5) % Plt Count (130-400) K/uL MPV (9.4-12.4) fL Immature Gran % (Auto) % Neut % (Auto) % Lymph % (Auto) % [place] % (Auto) % Eos % (Auto) % Baso % (Auto) % Neut # (Auto) (1.40-6.50) K/uL Lymph # (Auto) (1.20-3.40) K/uL [place] # (Auto) (0.11-0.59) K/uL Eos # (Auto) (0.00-0.50) K/uL Baso # (Auto) (0.00-0.20) K/uL Immature Gran # (Auto) (0.01-0.20) K/uL Sodium (136-145) mmol/L Potassium (3.5-5.1) mmol/L Chloride (98-107) mmol/L Carbon Dioxide (21-32) mmol/L Anion Gap (3-11) BUN (6-23) mg/dl Creatinine (0.6-1.2) mg/dl Est Cr Clr Drug Dosing ml/min Est GFR ( Amer) ml/min Est GFR (Non-Af Amer) ml/min BUN/Creatinine Ratio (10-20) Glucose (70-99(Fasting)) mg/dl POC Glucose 91 154 H (70-99) mg/dl Calcium (8.6-10.3) mg/dl Total Bilirubin (0.2-1.0) mg/dl Direct Bilirubin (0-0.2) mg/dl AST (13-39) U/L ALT (7-52) U/L Alkaline Phosphatase (34-104) U/L Troponin I High Sens (0-14) pg/ml Total Protein (6.0-8.3) gm/dl Albumin (3.4-5.0) gm/dl Lipase (11-82) U/L Urine Color Urine Appearance (Clear) Urine pH (4.5-7.5) Ur Specific [place] (1.000-1.030) Urine Protein (Negative) Urine Glucose (UA) (Negative) Urine Ketones (Negative) Urine Blood (Negative) Urine Nitrite (Negative) Urine Bilirubin (Negative) Urine Urobilinogen (Negative) Ur Leukocyte Esterase (Negative) Urine WBC (Auto) (0-5) /hpf Urine RBC (Auto) (0-2) /hpf U Hyaline Cast (Auto) (0-2) /lpf U Epithel Cells (Auto) (0-2) /hpf Urine Bacteria (Auto) (None Seen) Nasal Screen MRSA (PCR) (Negative) Administered Medications Aspirin (Aspirin 81 Mg Ectab) 81 mg PO 729 JASPER Stop: 01/12/24 07:29 Last Admin: 12/13/23 06:56 Dose: 81 mg Documented By: CF Atorvastatin Calcium (Atorvastatin 40 Mg Tab) 40 mg PO HS JASPER Stop: 01/11/24 20:59 Last Admin: 12/12/23 20:11 Dose: 40 mg Documented By: CF Budesonide (Budesonide Ec 3 Mg Cap) 9 mg PO QAM JASPER Stop: 01/12/24 08:59 Last Admin: 12/13/23 08:50 Dose: 9 mg Documented By: QUINNK Cholestyramine Resin (Cholestyramine Light 4 Gm Pkt) 4 gm PO BID@1000,2200 [facility] Stop: 01/11/24 21:59 Last Admin: 12/13/23 11:02 Dose: 4 gm Documented By: Admin: 12/12/23 21:21 Dose: 4 gm Documented By: CF Citalopram Hydrobromide (Citalopram 20 Mg Tab) 20 mg PO 30 JASPER Stop: 01/12/24 07:29 Last Admin: 12/13/23 06:57 Dose: 20 mg Documented By: CF Ceftriaxone Sodium (Rocephin) 2,000 mg in 50 mls @ 100 mls/hr IV Q24H JASPER Stop: 12/23/23 14:59 Last Infusion: 12/13/23 15:49 Dose: Infused Documented By: Admin: 12/13/23 15:19 Dose: 100 mls/hr Documented By: QUINNK Insulin Aspart (Insulin Aspart Per Unit Charge) 0 units SC ACHS JASPER Stop: 01/11/24 16:29 Last Admin: 12/13/23 17:36 Dose: 3 units Documented By: YARELY Co-signed By: PARESH Admin: 12/13/23 12:51 Dose: 3 units Documented By: QUINNK Co-signed By: DEVANTE Admin: 12/13/23 08:48 Dose: 2 units Documented By: NMK Co-signed By: YUDELKA Admin: 12/12/23 20:21 Dose: Not Given Documented By: Admin: 12/12/23 17:23 Dose: 2 units Documented By: NMK Co-signed By: MELLO Insulin Glargine (Lantus Per Unit Charge) 5 units SQ DAILY JASPER Stop: 01/12/24 08:59 Last Admin: 12/13/23 08:49 Dose: 5 units Documented By: QUINNK Co-signed By: YUDELKA Isosorbide Mononitrate (Isosorbide [place] Extended Rel 60 Mg Tabcr) 60 mg PO DAILY@0730 [facility] Stop: 01/12/24 07:29 Last Admin: 12/13/23 06:57 Dose: 60 mg Documented By: PASCALE Lisinopril (Lisinopril 40 Mg Tab) 40 mg PO DAILY@0730 JASPER Stop: 01/12/24 07:29 Last Admin: 12/13/23 06:57 Dose: 40 mg Documented By: PASCALE Lorazepam (Lorazepam 0.5 Mg Tab) 0.5 mg PO HS JASPER Stop: 01/11/24 20:59 Last Admin: 12/12/23 20:17 Dose: 0.5 mg Documented By: PASCALE Magnesium Chloride (Magnesium Chloride W/Calcium 64mg Delayed Rel Tab) 64 mg PO DAILY JASPER Stop: 01/12/24 08:59 Last Admin: 12/13/23 08:50 Dose: 64 mg Documented By: YARELY Melatonin (Melatonin 3 Mg Tab) 9 mg PO HS JASPER Stop: 01/11/24 20:59 Last Admin: 12/12/23 21:22 Dose: 9 mg Documented By: PASCALE Metoprolol Tartrate (Metoprolol Tartrate 50 Mg Tab) 50 mg PO DAILY@0730,2100 JASPER Stop: 01/11/24 20:59 Last Admin: 12/13/23 06:58 Dose: 50 mg Documented By: Admin: 12/12/23 20:10 Dose: 50 mg Documented By: CF Multivitamins/Minerals (Cerovite Adv Formula Tab) 1 tab PO DAILY@ [facility] Stop: 01/11/24 20:59 Last Admin: 12/13/23 06:57 Dose: 1 tab Documented By: Admin: 12/12/23 20:10 Dose: 1 tab Documented By: CF Oxybutynin Chloride (Oxybutynin Chloride Xl 5 Mg Tabcr) 10 mg PO DAILY@729 [facility] Stop: 01/12/24 07:29 Last Admin: 12/13/23 06:59 Dose: 10 mg Documented By: CF Oxycodone HCl (Oxycodone Hcl Ir 5 Mg Tab (Immediate Release)) 5 mg PO Q6H PRN PRN Reason: Pain Stop: 12/26/23 15:53 Last Admin: 12/12/23 21:25 Dose: 5 mg Documented By: CF Pantoprazole Sodium (Pantoprazole 40 Mg Tab) 40 mg PO DAILY [facility] Stop: 01/12/24 08:59 Last Admin: 12/13/23 08:49 Dose: 40 mg Documented By: YARELY Quetiapine Fumarate (Quetiapine Fumarate 25 Mg Tablet) 25 mg PO DAILY@729 [facility] Stop: 01/12/24 07:29 Last Admin: 12/13/23 07:01 Dose: 25 mg Documented By: PASCALE Spironolactone (Spironolactone 25 Mg Tab) 25 mg PO DAILY@ [facility] Stop: 01/11/24 20:59 Last Admin: 12/13/23 07:01 Dose: 25 mg Documented By: Admin: 12/12/23 20:10 Dose: 25 mg Documented By: PASCALE Ticagrelor (Ticagrelor 90 Mg Tab) 90 mg PO BID@ [facility] Stop: 01/11/24 20:59 Last Admin: 12/13/23 07:01 Dose: 90 mg Documented By: Admin: 12/12/23 20:09 Dose: 90 mg Documented By: CF Timolol Maleate (Timolol Maleate 0.5% Op Soln 5 Ml Btl) 1 drops OPB DAILY@729 [facility] Stop: 01/11/24 20:59 Last Admin: 12/13/23 07:01 Dose: 1 drops Documented By: Admin: 12/12/23 20:12 Dose: 1 drops Documented By: PASCALE Triamcinolone Acetonide (Triamcinolone Acet 0.1% Oint 15 Gm Tube) 1 appln TOP BID JASPER Stop: 01/11/24 20:59 Last Admin: 12/13/23 08:50 Dose: 1 appln Documented By: Admin: 12/12/23 20:13 Dose: 1 appln Documented By: PASCALE Discontinued Medications Gabapentin (Gabapentin 300 Mg Cap) 300 mg PO TID JASPER Stop: 01/11/24 20:59 Last Admin: 12/13/23 08:49 Dose: 300 mg Documented By: Admin: 12/12/23 20:10 Dose: 300 mg Documented By: PASCALE Ceftriaxone Sodium (Rocephin) 2,000 mg in 50 mls @ 100 mls/hr IV NOW STA Stop: 12/12/23 15:05 Last Infusion: 12/12/23 15:27 Dose: Infused Documented By: Admin: 12/12/23 14:42 Dose: 100 mls/hr Documented By: [facility] Discharge Plan Visit Data Chief Complaint: Trauma Stated Complaint: FALL, HIT HEAD ED Provider: Heriberto Sanford Discharge Problem: Gait instability, Closed head injury Patient Disposition: Admitted As Inpatient Discharge Instructions Interventions: ED Discharge Assessment Last Done: 12/12/23 15:31
[2023-12-12 11:30] LABS: Albumin Level 3.9 gm/dl (3.4-5.0); Bilirubin Direct 0.1 mg/dl (0-0.2); Bilirubin,Total 0.5 mg/dl (0.2-1.0); Calcium 9.1 mg/dl (8.6-10.3); Creatinine Clr Calc Pharmacy 41.2 ml/min; Total Protein 6.4 gm/dl (6.0-8.3)
[2023-12-12 11:37] LABS: Troponin I High Sensitivity 4.8 pg/ml (0-14)
--- NOTE | 2023-12-12 12:15 | CT Scan Report ---
Stefany Quiroz CT SCAN OF THE CERVICAL SPINE CLINICAL HISTORY: Trauma. COMPARISON STUDY: CT of the cervical spine dated 12/11/2023. TECHNIQUE: CT scan of the cervical spine is performed from the skull base to the upper thoracic spine . Images are reviewed in the axial, sagittal, and coronal planes. IV contrast was not administered fo r this examination. A dose lowering technique was utilized adhering to the principles of ALARA. CT DOSE: 1094.55 mGy.cm FINDINGS: Skeletal structures: The skeletal structures are osteopenic. There is no evidence of fracture or subl uxation involving the cervical spine. Vertebral body height and alignment are maintained. There is st raightening of the cervical lordosis. Anterior osteophytes are seen throughout. The odontoid process and lateral masses are intact. The atlantoaxial articulation is preserved noting productive degenera tive change. The spinous processes appear intact. There is moderate multilevel cervical spondylosis. Uncovertebral and facet arthropathy contribute to neural foraminal narrowing at several levels. Intervertebral discs: There is severe disc space narrowing at C6-C7 with endplate sclerosis. Moderate narrowing is identified at C5-C6 and C7-T1. Central canal: Posterior disc osteophyte complexes are seen at all cervical levels between C3-C4 and C6-C7. This likely contributes to multilevel acquired compromise of the central canal. Soft tissues: The prevertebral and paraspinous soft tissues are within normal limits. There is athero sclerotic calcification of the carotid bulbs. Calvarium: The visualized calvarium at the skull base appears intact. Brain parenchyma: Partially visualized brain parenchyma at the skull base is within normal limits. Sinuses and mastoids: The visualized paranasal sinuses are clear. The mastoid air cells are well pneu matized. Lung apices: Clear as visualized. IMPRESSION: 1. There is no evidence of fracture or subluxation involving the cervical spine. 2. Osteopenia and spondylotic change as above. ACT 112: Negative or not required by law. Electronically signed by: Jose Fox M.D. 12/12/2023 12:10 PM
--- NOTE | 2023-12-12 12:16 | CT Scan Report ---
Stefany Quiroz CT SCAN OF THE BRAIN WITHOUT IV CONTRAST CLINICAL HISTORY: Fall. Head injury. COMPARISON STUDY: CT of the brain dated 12/11/2023. TECHNIQUE: Unenhanced axial CT scan of the brain is performed from the vertex to the skull base. A do se lowering technique was utilized adhering to the principles of ALARA. FINDINGS: Brain parenchyma: There is age-related involutional change noting moderate subcortical and periventri cular microangiopathic disease. There is no hemorrhage, mass effect, or evidence of acute territorial ischemia by CT criteria. Marquez-white matter differentiation is preserved. No extra-axial fluid collec tion is seen. Ventricles, sulci, cisterns: Prominent secondary to involutional change. Intracranial vasculature: There is atherosclerotic calcification of the cavernous carotid and vertebr al arteries. Calvarium: The skeletal structures are osteopenic. No depressed calvarial fracture is seen. There is chronic deformity of the nasal bones. Soft tissues: There is a posterior scalp hematoma. Sinuses and mastoids: The visualized paranasal sinuses are clear. The mastoid air cells are well pneu matized. Orbits: The bony orbits are grossly intact. There are bilateral ocular lens implants. IMPRESSION: 1. There is no hemorrhage, mass effect, or evidence of acute territorial ischemia by CT criteria. 2. Posterior scalp hematoma. ACT 112: Negative or not required by law. Electronically signed by: Jose Fox M.D. 12/12/2023 12:15 PM
--- NOTE | 2023-12-12 12:53 | Electrocardiogram Report ---
Test Reason : Blood Pressure : */* mmHG Vent. Rate : 82 BPM Atrial Rate : 82 BPM P-R Int : 160 ms QRS Dur : 138 ms QT Int : 400 ms P-R-T Axes : 62 19 39 degrees QTcB Int : 467 ms Normal sinus rhythm Right bundle branch block Abnormal ECG When compared with ECG of 11-Dec-2023 10:41, Nonspecific T wave abnormality has replaced inverted T waves in Inferior leads Confirmed by Nila Mcgowan ([place]) on 12/12/2023 12:53:19 PM Referred By: Armand Monroe Dixie Confirmed By: Nila Mcgowan
[2023-12-12 14:02] LABS: Appearance Urine Clear (Clear); Bacteria Urine Automated 4+ (None Seen); Bilirubin Urine Negative (Negative); Blood Urine Negative (Negative); Cast Urine Automated 0-2 /lpf (0-2); Color Urine Yellow; Epithelial Cell Urine Auto 0-2 /hpf (0-2); Glucose Urine UA Negative (Negative); Ketones Urine Negative (Negative); Leukocyte Esterase Urine 1+ (Negative); Nitrite Urine Positive (Negative); Protein Urine Negative (Negative); RBC Urine Automated 0-2 /hpf (0-2); Urobilinogen Urine Negative (Negative); pH Urine 5.5 (4.5-7.5)
--- NOTE | 2023-12-12 14:16 | XRay Report ---
Stefany Quiroz SINGLE VIEW PELVIS; 2 VIEWS RIGHT HIP CLINICAL HISTORY: Fall. Right hip pain. FINDINGS: An AP view of the pelvis with AP and frog-leg views of the right hip are compared to study dated 12/11/2023. The skeletal structures are osteopenic. There is no radiographic evidence of acute f racture involving the hips or bony pelvis. Degenerative sclerosis is noted in the sacroiliac joints a nd pubic symphysis. Mild to moderate osteoarthritic change and joint space narrowing is seen in the h ips. Enthesophytes arise from the anterior superior iliac spines. Lumbosacral spondylosis is observed . There are several pelvic phleboliths. Nonobstructing left renal calculi are again noted. IMPRESSION: No acute bony abnormality is identified. Electronically signed by: Jose Fox M.D. 12/12/2023 11:34 AM
--- NOTE | 2023-12-12 14:30 | History & Physical Report ---
Date of Service December 12, 2023 Assessment & Plan (1) Fall: Plan: Multiple falls, weakness Suspect multifactorial w/ of UTI, patient has had deconditioning with multiple recent hospital admissions, recently controlled diarrhea after a long course of GI losses PT/OT pending Suspect she will need a higher level of care than assisted living/acute rehab once improved Hip/pelvis x-ray without acute fracture/bony abnormality CT head without any acute intracranial findings, there is a posterior scalp hematoma noted CT chest C-spine without acute fracture or subluxation (2) Acute UTI: Plan: UTI UA is with 4+ bacteria, nitrates, leukocyte esterase and no epithelial contamination Patient has had some increased frequency and new suprapubic discomfort consistent with UTI Rocephin continued. Multiple past UTIs with E. coli (3) Chronic kidney disease, stage 3a: Plan: Creatinine 1.07, at baseline on admission Trend daily (4) Diabetes mellitus, type 2: Plan: Goal BSG [id number], glucose checks AC/at bedtime, DM2/heart healthy diet, Lantus 8 units daily with SSI 45/15 (5) Lymphocytic colitis: Plan: Lymphocytic colitis Biopsy-proven on last colonoscopy. Continue budesonide twice daily. This should be continued until she is completely symptom-free and stable and then slowly tapered as outpatient. C. difficile gene positive Patient has had diarrhea with biopsy confirming extended colitis. Was transiently on vancomycin p.o. last admission for gene positive C. difficile which was ultimately discontinued when toxin was negative. Follow closely and if clinically worsening would have low threshold to restart vancomycin and retest for conversion (6) Sleep apnea: Plan: ROMAN at bedtime (7) History of CAD (coronary artery disease): Plan: No chest pain prior to admission or around her falls. Troponin is normal Continue aspirin Continue metoprolol Continue spironolactone, ROSELINE, isosorbide Orthostatics pending. Patient has had some orthostatic dizziness which may be due to volume contraction and UTI; however if significantly with a static and contributing to her falls recommend decreasing lisinopril versus spironolactone Plan DVT prophylaxis: SCDs x 24 hours due to traumatic scalp hematoma with bleeding CODE STATUS: DNR/DNI Disposition: PCU due to code trauma and head strike on antiplatelets Diet: Heart healthy, DM 2 History of Present Illness Primary Care Provider: DO Stefany Iyer is a 78-year-old female with a past medical history of type II DM, C. difficile gene positive toxin negative status, lymphocytic colitis biopsy confirmed, GERD, weakness, multiple falls, dyslipidemia who was at her assisted care facility when she had a fall backwards striking the back of her head. She is on DAPT for PCI in the last year. She is brought to the hospital for evaluation, this is her second fall in 48 hours with head strike and third fall this week. Due to progressive weakness and multiple falls she was recommended for admission, PT/OT and evaluation for higher level of care. seen at the bedside. She reports that she has felt a little bit lightheaded when standing in the last few days, and globally weak. She is also had some suprapubic tenderness and is peeing a little more than normal. She denies dysuria. Feels like she may have another UTI. Denies chest pain chest pressure, difficulty breathing, shortness of breath. She reports when she fell she is not sure why she fell but felt weak and off balance. She did not have any room spinning. She has had a little bit of lightheadedness when standing. She notes that her diarrhea is vastly improved compared to the last time she was in the hospital, and has not had any diarrhea in the last 3 days. Denies fever chills or sweats. The back of her head is a little sore after falling. Medical History: Reviewed Medications: Reviewed Surgical History: Reviewed Family history: Reviewed Allergies: Reviewed Social History: Reviewed Code Status: DNR/DNI Allergies Allergy/AdvReac Type Severity Reaction Status Date / Time latex Allergy Mild ON [facility] Verified 12/11/23 09:21 LIST-per patient- thinks rash niacin Allergy Unknown ON [facility] Verified 12/11/23 09:21 [From [facility] MED LIST Extended-Release] simvastatin Allergy Unknown ON Verified 12/11/23 09:21 [facility] LIST- unsure Home Medications Medication Instructions Recorded Confirmed Type glucose 4 gram chewable tablet 1 tab PO DAILY PRN HYPOGLYCEMIA 11/26/17 12/12/23 History tolterodine 2 mg tablet 2 mg PO .DAILY@0730,2100 11/26/17 12/12/23 History acetaminophen 325 mg tablet 650 mg PO Q6H PRN Fever Or Pain 06/12/18 12/12/23 History (Tylenol) nystatin 100,000 unit/gram topical 1 applic topical BID PRN RASH IN 11/24/22 12/12/23 History cream ABD FOLDS NEEDED hydrocortisone 1 % topical cream 1 applic topical BID PRN Rash 05/09/23 12/12/23 History lisinopril 40 mg tablet 40 mg PO .DAILY@72905/09/23 12/12/23 History vit C 250 mg-vit E 90 mg-zinc 40 1 tab PO .DAILY@05/09/23 12/12/23 History mg-copper 1 [id number] capsule (PreserVision AREDS-2) melatonin 10 mg capsule 10 mg PO HS sleep #30 caps 08/04/23 12/12/23 Rx isosorbide mononitrate 60 mg 60 mg PO .DAILY@72909/24/23 12/12/23 History tablet,extended release 24 hr nystatin 100,000 unit/gram topical 1 applic topical BID PRN Rash 09/24/23 12/12/23 History powder quetiapine 25 mg tablet 25 mg PO .DAILY@72909/24/23 12/12/23 History amoxicillin 500 mg capsule 2,000 mg PO DIRECTED PRN 1 HOUR 09/29/23 12/12/23 History PRIOR TO DENTAL VISIT insulin lispro 100 unit/mL 3 unit subcut TIDM 10/16/23 12/12/23 History subcutaneous pen (Humalog KwikPen (U-100) Insulin) magnesium citrate 150 ml PO DAILY PRN No BM x 2 days 11/23/23 12/12/23 Rx #296 mL Qc Natural Veggie 95% Powder 1 tsp PO DAILY PRN Constipation 11/28/23 12/12/23 History insulin glargine 100 unit/mL (3 5 unit subcut .DAILY@79911/28/23 12/12/23 History mL) subcutaneous pen (Lantus Solostar U-100 Insulin) loperamide 2 mg capsule 2 mg PO QID PRN loose stool 11/28/23 12/12/23 History magnesium chloride 64 mg 64 mg PO DAILY 11/28/23 12/12/23 History (magnesium chloride) tablet,delayed release (Mag 64) methenamine hippurate 1 gram tablet 1 g PO .DAILY@11/28/23 12/12/23 History metoprolol tartrate 50 mg tablet 50 mg PO .DAILY@0730,2100 11/28/23 12/12/23 History oxycodone 5 mg tablet 5 mg PO Q6H PRN Pain 11/28/23 12/12/23 History pantoprazole 40 mg tablet,delayed 40 mg PO DAILY 11/28/23 12/12/23 History release (Protonix) polyethylene glycol 3350 17 gram 8.5 g PO .DAILY@0730 constipation 11/28/23 12/12/23 History oral powder packet polyethylene glycol 3350 17 17 g PO BID PRN Constipation 11/28/23 12/12/23 History gram/dose oral powder (Miralax) spironolactone 25 mg tablet 25 mg PO .DAILY@730,2100 11/28/23 12/12/23 History timolol 0.5 % eye drops 1 drp OPB .DAILY@0730 11/28/23 12/12/23 History triamcinolone acetonide 0.1 % 1 applic topical BID 11/28/23 12/12/23 History topical ointment aspirin 81 mg tablet,delayed 81 mg PO 0730 30 days #30 tabs 11/30/23 12/12/23 Rx release atorvastatin 40 mg tablet 40 mg PO HS 30 days #30 tabs 11/30/23 12/12/23 Rx budesonide 3 mg 9 mg (3 x 3 mg) PO QAM 30 days #90 11/30/23 12/12/23 Rx capsule,delayed,extended release ea cholestyramine-aspartame 4 gram 1 ea PO BID@1000,2200 30 days #60 11/30/23 12/12/23 Rx oral powder for susp in a packet ea (Prevalite) citalopram 20 mg tablet 20 mg PO 0730 30 days #30 tabs 11/30/23 12/12/23 Rx hydrocodone 5 mg-acetaminophen 325 1 tab PO DAILY PRN pain #7 tabs 11/30/23 12/12/23 Rx mg tablet ticagrelor 90 mg tablet (Brilinta) 90 mg PO BID@0730,2100 30 days #60 11/30/23 12/12/23 Rx tabs Trulicity 4.5 mg/0.5 mL 4.5 mg (0.5 mL) subcut Q7D #2 mL 12/04/23 12/12/23 Rx subcutaneous pen injector (dulaglutide) gabapentin 300 mg capsule 300 mg PO TID #270 caps 12/11/23 12/12/23 Rx lorazepam 0.5 mg tablet 0.5 mg PO DAILY Sleep 12/11/23 12/12/23 History Past Med/Surg History Problem List (Updated 12/11/23 @ 16:22 by Michael Cosme MD) Current use of senior care anticoagulation (Acute) Trauma (Acute) Closed injury of head (Acute) Fall (Acute) Diarrhea (Acute) Metabolic acidosis (Acute) Diabetes mellitus, type 2 IDDM History of CAD (coronary artery disease) Hyperkalemia Chronic diarrhea Lower back pain Lymphocytic colitis (Acute) Hypokalemia Hypomagnesemia Diarrhea (Acute) Abdominal pain (Acute) Acute UTI (Acute) Acute dehydration (Acute) YAKOV (acute kidney injury) (Acute) Hypermagnesemia Gait instability (Acute) Imbalance Urinary incontinence Anemia (Acute) Chest pain (Acute) Chest pain Diabetic retinopathy associated with type 2 diabetes mellitus Left nephrolithiasis Overactive bladder GERD (gastroesophageal reflux disease) hx Sleep apnea cpap nightly with 3lpm of oygen Depression Per records Glaucoma CAD (coronary artery disease) Occlusion of distal portion of left circumflex coronary artery Proteinuria Chronic kidney disease, stage 3a Vitamin D deficiency Diabetic nephropathy associated with type 2 diabetes mellitus Enteritis, inflammatory disorder of small intestine (Chronic Unknown) Fatigue (Acute) Generalized weakness (Acute) Knee pain (Acute) Radiculopathy, lumbar region Spinal stenosis of lumbar region Hypertension DVT prophylaxis Toe ulcer Pressure ulcer, stage III (Acute) Diabetes mellitus type 2 in obese Dyslipidemia Statin myopathy Peripheral neuropathy Hyponatremia Medical History C. difficile colitis YAKOV (acute kidney injury) Anemia Weight loss, non-intentional Anemia UTI (urinary tract infection) YAKOV (acute kidney injury) History of recurrent UTI (urinary tract infection) Insomnia Per records Neuropathy per patient- hands and feet Hypertension Per records History of macular degeneration Chronic back pain Neurogenic claudication due to lumbar spinal stenosis History of nephrolithiasis Nasal bone fracture Cholecystitis, acute Surgical History Status post spinal surgery History of bilateral tubal ligation Hx of total knee arthroplasty bilateral S/P epidural steroid injection History of cholecystectomy History of colonoscopy History of cornea transplant bilateral History of cataract surgery bilateral History of appendectomy Family History Mother Breast cancer Aunt Colorectal cancer Diabetes Father Myocardial infarction Other No family history of adverse response to anesthesia No pertinent family history Denies family history of Ovarian cancer Prostate cancer Social History Smoking Status: Former smoker Tobacco Type: Cigarettes Age Quit Using Tobacco: 64; Cigarettes Per Day: 2 packs/day; Second Hand Exposure: No; Do You Dip or Chew Tobacco: No; Hx Alcohol Use: No Hx Substance Use: No Preferred Language: Bruneian Communication Ability: Effective Visual Impairment: No Limitations Hearing Ability: Normal Bridge Expert Required: No Beliefs That Will Affect Care: None marital status: Current Living Situation: Personal Care Facility Current Living Situation Comment: [facility] [place] current occupational status: retired current occupation: Retired How many Children do You have: 2 Feels Safe at Home: Yes Childhood Exposure to Second-Hand Smoke: No Diet: regular caffeine: No during the past year weight has: remained stable Dental Care, Regularly: Yes Physical Activity Frequency: Does not Exercise Seatbelt Use: sometimes Sunscreen Use: Yes Assistive Devices: CPAP, Oxygen - at Night and Walker Physical Exam Physical Exam: General: A&Ox3. NAD. Cooperative. HEENT: Posterior scalp small hematoma and abrasion. PERLAA. Vision/hearing intact grossly. Pulm: CTAB A&P. -wheezes, -rales, -rhonchi. Symmetrical chest rise. No increased work of breathing. No respiratory distress. Cardiac: RRR, -mrg. Radial pulses intact and symmetrical. Abdominal: +suprapubic TTP otherwise nontender, nondistended, soft. BS present. Ext: warm, dry Results & Data Results & Data Vital Signs (Past 12 Hours) Vital Signs Temp Pulse Pulse Resp BP BP Pulse Ox 12/12/23 13:00 84 19 134/74 98 12/12/23 12:07 83 12/12/23 11:19 36.4 C L 82 18 116/110 H 97 12/12/23 11:12 36.5 C 82 19 116/100 97 12/12/23 10:53 36.5 C 82 18 145/74 H O2 Del Method 12/12/23 13:00 Room Air 12/12/23 12:07 12/12/23 11:19 Room Air 12/12/23 11:12 Room Air 12/12/23 10:53 Room Air PG Care Time/CCT Total # of Minutes Spent Total Time Spent with Patient: Total time spent is greater than 50% in coordination of care (as documented) at patient's floor/unit and/or counseling patient: Coding Level of Care Code 75981 INT INP/OBS CARE 375MIN Diagnoses Fall W19.XXXA Encounter type: initial encounter Acute UTI N39.0 Chronic kidney disease, stage 3a N18.31 Diabetes mellitus, type 2 E11.9 Lymphocytic colitis K52.832 Sleep apnea G47.30 History of CAD (coronary artery disease) Z86.79 (1) Fall Encounter type: initial encounter Qualified Code(s): W19.XXXA - Unspecified fall, initial encounter
[2023-12-12] MEDS: cefTRIAXone SODIUM 2,000 MG/50 ML BAG IV STA (14:42)
[2023-12-12] MEDS ORDERED: GLUCOSE 40% GEL 15 GM TUBE PO PRN (14:58)
[2023-12-12] MEDS ORDERED: GLUCOSE 10 TAB/TUBE PO PRN ×2 (14:58→15:54)
[2023-12-12] MEDS ORDERED: CARBOHYDRATES FOR HYPOGLYCEMIA PO PRN (14:58)
[2023-12-12] MEDS ORDERED: DEXTROSE 50% 50 ML SYRINGE IV PRN (14:58)
[2023-12-12] MEDS ORDERED: GLUCAGON FOR INJ 1 MG VIAL SQ PRN (14:58)
[2023-12-12] MEDS ORDERED: LOPERAMIDE HCL 2 MG CAP PO PRN (15:54)
[2023-12-12] MEDS: INSULIN ASPART PER UNIT CHARGE SC SCH (17:23)
[2023-12-12] MEDS: TICAGRELOR 90 MG TAB PO SCH (20:09)
[2023-12-12] MEDS: SPIRONOLACTONE 25 MG TAB PO SCH (20:10)
[2023-12-12] MEDS: GABAPENTIN 300 MG CAP PO SCH (20:10)
[2023-12-12] MEDS: METOPROLOL TARTRATE 50 MG TAB PO SCH (20:10)
[2023-12-12] MEDS: CEROVITE ADV FORMULA TAB PO SCH (20:10)
[2023-12-12] MEDS: ATORVASTATIN 40 MG TAB PO SCH (20:11)
[2023-12-12] MEDS: TIMOLOL MALEATE 0.5% OP SOLN 5 ML BTL OPB SCH (20:12)
[2023-12-12] MEDS: TRIAMCINOLONE ACET 0.1% OINT 15 GM TUBE TOP SCH (20:13)
[2023-12-12] MEDS: LORazepam 0.5 MG TAB PO SCH (20:17)
[2023-12-12] MEDS: CHOLESTYRAMINE LIGHT 4 GM PKT PO SCH (21:21)
[2023-12-12] MEDS: MELATONIN 3 MG TAB PO SCH (21:22)
[2023-12-12] MEDS: oxyCODONE HCL IR 5 MG TAB (IMMEDIATE RELEASE) PO PRN (21:25)
[2023-12-13] MEDS: ASPIRIN 81 MG ECTAB PO SCH (06:56)
[2023-12-13] MEDS: lisinopril 40 MG TAB PO SCH (06:57)
[2023-12-13] MEDS: ISOSORBIDE MONO EXTENDED REL 60 MG TABCR PO SCH (06:57)
[2023-12-13] MEDS: CITALOPRAM 20 MG TAB PO SCH (06:57)
[2023-12-13] MEDS: OXYBUTYNIN CHLORIDE XL 5 MG TABCR PO SCH (06:59)
[2023-12-13] MEDS: QUEtiapine FUMARATE 25 MG TABLET PO SCH (07:01)
[2023-12-13 07:04] LABS: Basophils # (auto) 0.05 K/uL (0.00-0.20); Basophils % (auto) 0.7 %; Eosinophils # (auto) 0.06 K/uL (0.00-0.50); Eosinophils % (auto) 0.8 %; Hematocrit (blood only) 29.8 % (37.0-47.0); Hemoglobin 9.5 g/dl (12.0-16.0); Immature Granulocytes # (auto) 0.03 K/uL (0.01-0.20); Immature Granulocytes % (auto) 0.4 %; Lymphocytes # (auto) 1.44 K/uL (1.20-3.40); Lymphocytes % (auto) 18.8 %; Mean Corpuscular Hemoglobin 28.6 pg (25.0-34.0); Mean Corpuscular Hgb Conc 31.9 g/dL (32.0-36.0); Mean Corpuscular Volume 89.8 fL (80.0-100.0); Mean Platelet Volume 9.9 fL (9.4-12.4); Monocytes # (auto) 0.54 K/uL (0.11-0.59); Neutrophils # (auto) 5.55 K/uL (1.40-6.50); Neutrophils % (auto) 72.3 %; Platelet Count 227 K/uL (130-400); RDW Coefficient of Variation 14.7 % (11.5-14.5); RDW Standard Deviation 47.5 fL (36.4-46.3); Red Blood Count 3.32 M/uL (4.20-5.40); White Blood Count 7.67 K/ul (4.8-10.8)
[2023-12-13 07:18] LABS: BUN Creatinine Ratio 28.9 (10-20); Creatinine Clr Calc Pharmacy 45.5 ml/min; Est GFR (African American) 65.3 ml/min; Est GFR (Non-African American) 56.3 ml/min; Potassium 5.2 mmol/L (3.5-5.1)
[2023-12-13] MEDS: PANTOprazole 40 MG TAB PO SCH (08:49)
[2023-12-13] MEDS: LANTUS PER UNIT CHARGE SQ SCH (08:49)
[2023-12-13] MEDS: MAGNESIUM CHLORIDE W/CALCIUM 64MG DELAYED REL TAB PO SCH (08:50)
[2023-12-13] MEDS: BUDESONIDE EC 3 MG CAP PO SCH (08:50)
[2023-12-13] MEDS ORDERED: LANTUS PER UNIT CHARGE SQ SCH (09:00)
--- NOTE | 2023-12-13 11:05 | Hospitalist Progress Note ---
Date of Service December 13, 2023 Assessment & Plan (1) Fall: Plan: Multiple falls, weakness Suspect multifactorial w/ of UTI, patient has had deconditioning with multiple recent hospital admissions, recently controlled diarrhea after a long course of GI losses PT/OT pending Suspect she will need a higher level of care than assisted living/acute rehab once improved Hip/pelvis x-ray without acute fracture/bony abnormality CT head without any acute intracranial findings, there is a posterior scalp hematoma noted CT chest C-spine without acute fracture or subluxation -CBC reviewed 12/12: hgb 9.5 appears patient has had slow decline in hgb over last 8-9 months. - normocytic anemia -BMP reviewed 12/12: hyperkalemic w/ K of 5.2, repeat at 1500 5.1 spironolactone and lisinopril on hold -orthostatic vitals obtained 12/12 - lying 100/63, sitting 123/72, standing 113/67 -Gabapentin held - patient reports being on higher doses of gabapentin in past which is why PCP recently adjusted this medication. Discussed side effects w/ her -Discussed side effects of Ativan prior to bed. Patient states this is only medication that works for sleep aid. reports she has been taking it for years. -will also hold oxybutynin and seroquel which is being taken in the morning-both of these can lead to falls especially in the elderly AM CBC, BMP (2) Acute UTI: Plan: UTI UA is with 4+ bacteria, nitrates, leukocyte esterase and no epithelial contamination - urine culture + for gram negative bacilli, sensitivies pending Patient has had some increased frequency and new suprapubic discomfort consistent with UTI Rocephin continued. Multiple past UTIs with E. coli -with recurrent UTIs, recommend STOPPING oxybutynin (3) Chronic kidney disease, stage 3a: Plan: Creatinine 1.07, at baseline on admission BMP 12/12 reviewed: creatinine 1.24, BUN 31. Hyperkalemic w/ K of 5.1, hyponatremic w/ Na of 133 Lisinopril/Spironolactone on hold Check repeat BMP for hyperkalemia this afternoon, change to low K+ diet AM BMP (4) Lymphocytic colitis: Plan: Lymphocytic colitis Biopsy-proven on last colonoscopy. Continue budesonide twice daily and Questran twice daily. This should be continued until she is completely symptom-free and stable and then slowly tapered as outpatient. C. difficile gene positive Patient has had diarrhea with biopsy confirming extended colitis. Was transiently on vancomycin p.o. last admission for gene positive C. difficile which was ultimately discontinued when toxin was negative. Follow closely and if clinically worsening would have low threshold to restart vancomycin and retest for conversion -per patient she has not had a BM x 3 days now. - patient refusing to defecate on bed delgado (5) Diabetes mellitus, type 2: Plan: Goal BSG 194633, glucose checks AC/at bedtime, DM2/heart healthy diet, Lantus 5 units daily with SSI 45/15 - hgb A1c 11/28: 6.0% (6) History of CAD (coronary artery disease): Plan: No chest pain prior to admission or around her falls. Troponin is normal Continue aspirin, Brilinta Continue metoprolol Continue isosorbide - Continue statin Orthostatics negative. -Hold spironolactone and lisinopril Plan Chronic conditions: ROMAN: CPAP at bedtime GERD: pantoprazole Overactive bladder: oxybutynin DVT prophylaxis: SCDs x 24 hours due to traumatic scalp hematoma with bleeding CODE STATUS: DNR/DNI Disposition: PCU due to code trauma and head strike on antiplatelets Diet: Heart healthy, DM 2 Admission and Anticipated Discharge Date Admission Date: December 12, 2023 Supervising Physician Co-Signing Physician Notes ABISAI Supervision Note: I did not personally see or examine the patient today, but I verified all rodriguez points of ABISAI Newberry's assessment and plan with the following exceptions/additions: None Subjective Patient seen and examined this morning. Patient tearful at time of encounter. Patient endorses frustration over how frequent she has been hospitalized recently. She states she feels too many doctors are changing her medications and it is why she is being hospitalized. Patient states that she was dizzy at time of encounter. She denied chest pain, shortness of breath, or leg edema. States she feels she needs to stay hospitalized until her medications are adjusted. She would like to stay for at least 3-4 days. Physical Exam 2 Constitutional: WD/WN, vitals as above Eyes: PERRL, conjunctivae normal, anicteric sclerae Respiratory: normal respiratory effort, lungs clear to auscultation Cardiovascular: RRR, no murmur, no edema Gastrointestinal (Abdomen): +BS, lower abdominal tenderness to palpa tion Psychiatric: A+Ox3, euthymic affect tearful Results & Data Results & Data Vital Signs (Past 12 Hours) Vital Signs Temp Pulse Pulse Resp BP BP Pulse Ox 12/13/23 09:00 12/13/23 08:12 36.7 C 88 18 125/71 98 12/13/23 07:00 86 12/13/23 06:57 87 12/13/23 04:25 36.4 C L 79 18 128/73 98 12/13/23 03:23 22 98 12/13/23 00:37 90 12/13/23 00:34 86 16 99 12/12/23 23:56 37.0 C 86 18 121/65 98 O2 Del Method FiO2 12/13/23 09:00 Room Air, CPAP 12/13/23 08:12 Room Air 12/13/23 07:00 12/13/23 06:57 12/13/23 04:25 CPAP 12/13/23 03:23 21 12/13/23 00:37 12/13/23 00:34 21 12/12/23 23:56 Room Air Laboratory Results 12/13/23 05:42 12/13/23 14:41 PG Care Time/CCT Total # of Minutes Spent Total Time Spent with Patient: Total time spent is greater than 50% in coordination of care (as documented) at patient's floor/unit and/or counseling patient: Coding Level of Care Code 99411 SUB INP/OBS CARE 2/35MIN Diagnoses Fall W19.XXXA Encounter type: initial encounter Acute UTI N39.0 Chronic kidney disease, stage 3a N18.31 Lymphocytic colitis K52.832 Diabetes mellitus, type 2 E11.9 History of CAD (coronary artery disease) Z86.79 (1) Fall Encounter type: initial encounter Qualified Code(s): W19.XXXA - Unspecified fall, initial encounter
[2023-12-13] MEDS: cefTRIAXone SODIUM 2,000 MG/50 ML BAG IV SCH (15:19)
[2023-12-13 15:24] LABS: Calcium 8.7 mg/dl (8.6-10.3); Creatinine Clr Calc Pharmacy 35.6 ml/min; Est GFR (African American) 48.5 ml/min; Est GFR (Non-African American) 41.9 ml/min; Potassium 5.1 mmol/L (3.5-5.1)
--- NOTE | 2023-12-13 22:07 | XRay Report ---
SINGLE VIEW CHEST CLINICAL HISTORY: fALL FINDINGS: An AP, portable, upright chest radiograph is compared to study dated 12/11/2023 and correlated with chest CT dated 10/12/2013. The cardiomediastinal silhouette is top normal for projection. Chronic residual thickening is similar to previous. There is mild bibasilar scarring/atelectasis. The lungs and pleural spaces are otherwise clear. No pneumothorax is seen. The skeletal structures are osteopenic. The bony thorax is grossly intact. Cholecystectomy clips are noted in the right upper quadrant. IMPRESSION: No active disease in the chest. ACT 112: Negative or not required by law. MTDD
[2023-12-14 06:21] LABS: Basophils # (auto) 0.06 K/uL (0.00-0.20); Basophils % (auto) 0.8 %; Eosinophils # (auto) 0.08 K/uL (0.00-0.50); Eosinophils % (auto) 1.1 %; Hematocrit (blood only) 29.6 % (37.0-47.0); Hemoglobin 9.4 g/dl (12.0-16.0); Immature Granulocytes # (auto) 0.04 K/uL (0.01-0.20); Immature Granulocytes % (auto) 0.5 %; Lymphocytes # (auto) 1.61 K/uL (1.20-3.40); Mean Corpuscular Hemoglobin 28.3 pg (25.0-34.0); Mean Corpuscular Hgb Conc 31.8 g/dL (32.0-36.0); Mean Corpuscular Volume 89.2 fL (80.0-100.0); Mean Platelet Volume 9.9 fL (9.4-12.4); Monocytes # (auto) 0.63 K/uL (0.11-0.59); Monocytes % (auto) 8.6 %; Platelet Count 234 K/uL (130-400); RDW Coefficient of Variation 14.9 % (11.5-14.5); RDW Standard Deviation 48.4 fL (36.4-46.3); Red Blood Count 3.32 M/uL (4.20-5.40); White Blood Count 7.32 K/ul (4.8-10.8)
[2023-12-14 06:40] LABS: BUN Creatinine Ratio 26.8 (10-20); Calcium 9.1 mg/dl (8.6-10.3); Creatinine Clr Calc Pharmacy 36.1 ml/min; Est GFR (Non-African American) 42.3 ml/min; Potassium 4.4 mmol/L (3.5-5.1)
--- NOTE | 2023-12-14 12:50 | Hospitalist Progress Note ---
Date of Service December 14, 2023 Assessment & Plan (1) Fall: Plan: Multiple falls, weakness Suspect multifactorial w/ of UTI, patient has had deconditioning with multiple recent hospital admissions, recently controlled diarrhea after a long course of GI losses PT/OT recommending rehab Hip/pelvis x-ray without acute fracture/bony abnormality CT head without any acute intracranial findings, there is a posterior scalp hematoma noted CT chest C-spine without acute fracture or subluxation -CBC reviewed 12/13: hgb 9.4 appears patient has had slow decline in hgb over last 8-9 months. - normocytic anemia -BMP reviewed 12/13: K WNL, creatinine 1.23, BUN 33 spironolactone and lisinopril on hold -orthostatic vitals obtained 12/12 - lying 100/63, sitting 123/72, standing 113/67 -Gabapentin held - patient reports being on higher doses of gabapentin in past which is why PCP recently adjusted this medication. Discussed side effects w/ her -Discussed side effects of Ativan prior to bed. Patient states this is only medication that works for sleep aid. reports she has been taking it for years. -will also hold oxybutynin and seroquel which is being taken in the morning-both of these can lead to falls especially in the elderly -she is also on oxycodone prn at home-consider stopping this as well due to negative side effects and risk of falls in the elderly AM CBC, BMP (2) Acute UTI: Plan: UTI UA is with 4+ bacteria, nitrates, leukocyte esterase and no epithelial contamination - urine culture + for E coli. Rocephin continued. -with recurrent UTIs, recommend STOPPING oxybutynin (3) Chronic kidney disease, stage 3a: Plan: Creatinine 1.07, at baseline on admission BMP 12/12 reviewed: electrolytes stable, creatinine 1.23. Lisinopril/Spironolactone on hold - Spironolactone should likely not be continued on discharge given persistent issues with hyperkalemia AM BMP (4) Lymphocytic colitis: Plan: Lymphocytic colitis Biopsy-proven on last colonoscopy. Continue budesonide twice daily and Questran twice daily. This should be continued until she is completely symptom-free and stable and then slowly tapered as outpatient. C. difficile gene positive Patient has had diarrhea with biopsy confirming extended colitis. Was transiently on vancomycin p.o. last admission for gene positive C. difficile which was ultimately discontinued when toxin was negative. Follow closely and if clinically worsening would have low threshold to restart vancomycin and retest for conversion (5) Diabetes mellitus, type 2: Plan: Goal BSG 315124, glucose checks AC/at bedtime, DM2/heart healthy diet, Lantus 5 units daily with SSI 45/15 - hgb A1c 15: 6.0% (6) History of CAD (coronary artery disease): Plan: No chest pain prior to admission or around her falls. Troponin is normal Continue aspirin, Brilinta Continue metoprolol Continue isosorbide - Continue statin Orthostatics negative. -Hold spironolactone and lisinopril Plan Chronic conditions: ROMAN: CPAP at bedtime GERD: pantoprazole DVT prophylaxis: SCDs x 24 hours due to traumatic scalp hematoma with bleeding CODE STATUS: DNR/DNI Disposition: PCU due to code trauma and head strike on antiplatelets Diet: Heart healthy, DM 2 Admission and Anticipated Discharge Date Admission Date: December 13, 2023 Supervising Physician Co-Signing Physician Notes ABISAI Supervision Note: I did not personally see or examine the patient today, but I verified all rodriguez points of ABISAI Newberry's assessment and plan with the following exceptions/additions: None Subjective Patient seen and examined this morning. patient reported to feel lightheadedness/dizziness. She was sitting in her chair at time of encounter. Patient feels that she would benefit from rehab upon discharge. Denied any additional complaints. Physical Exam 2 Constitutional: WD/WN, vitals as above Eyes: PERRL, conjunctivae normal, anicteric sclerae Respiratory: normal respiratory effort, lungs clear to auscultation Cardiovascular: RRR, no murmur, no edema Psychiatric: A+Ox3, euthymic affect Results & Data Results & Data Vital Signs (Past 12 Hours) Vital Signs Temp Pulse Pulse Resp BP Pulse Ox O2 Del Method 12/14/23 11:11 36.7 C 83 20 100/63 99 Room Air 12/14/23 08:28 36.5 C 77 20 136/71 98 Room Air 12/14/23 08:12 78 12/14/23 03:50 36.4 C L 78 20 124/64 98 Room Air 12/14/23 03:34 81 16 96 12/14/23 00:53 Room Air FiO2 12/14/23 11:11 12/14/23 08:28 12/14/23 08:12 12/14/23 03:50 12/14/23 03:34 21 12/14/23 00:53 Laboratory Results 12/14/23 05:50 12/14/23 05:50 PG Care Time/CCT Total # of Minutes Spent Total Time Spent with Patient: Total time spent is greater than 50% in coordination of care (as documented) at patient's floor/unit and/or counseling patient: Coding Level of Care Code 21381 SUB INP/OBS CARE 2MIN Diagnoses Fall W19.XXXA Encounter type: initial encounter Acute UTI N39.0 Chronic kidney disease, stage 3a N18.31 Lymphocytic colitis K52.832 Diabetes mellitus, type 2 E11.9 History of CAD (coronary artery disease) Z86.79 (1) Fall Encounter type: initial encounter Qualified Code(s): W19.XXXA - Unspecified fall, initial encounter
[2023-12-14] MEDS: POLYETHYLENE (MIRALAX) 17 GM PACK PO PRN (20:44)
[2023-12-15 06:24] LABS: Basophils # (auto) 0.05 K/uL (0.00-0.20); Basophils % (auto) 0.5 %; Eosinophils # (auto) 0.03 K/uL (0.00-0.50); Eosinophils % (auto) 0.3 %; Hematocrit (blood only) 31.3 % (37.0-47.0); Hemoglobin 10.5 g/dl (12.0-16.0); Immature Granulocytes # (auto) 0.05 K/uL (0.01-0.20); Immature Granulocytes % (auto) 0.5 %; Lymphocytes # (auto) 0.98 K/uL (1.20-3.40); Lymphocytes % (auto) 9.2 %; Mean Corpuscular Hgb Conc 33.5 g/dL (32.0-36.0); Mean Corpuscular Volume 86.5 fL (80.0-100.0); Mean Platelet Volume 9.8 fL (9.4-12.4); Monocytes # (auto) 0.61 K/uL (0.11-0.59); Monocytes % (auto) 5.7 %; Neutrophils # (auto) 8.96 K/uL (1.40-6.50); Neutrophils % (auto) 83.8 %; Platelet Count 268 K/uL (130-400); RDW Coefficient of Variation 14.6 % (11.5-14.5); RDW Standard Deviation 46.3 fL (36.4-46.3); Red Blood Count 3.62 M/uL (4.20-5.40); White Blood Count 10.68 K/ul (4.8-10.8)
[2023-12-15 06:47] LABS: BUN Creatinine Ratio 40.2 (10-20); Calcium 9.2 mg/dl (8.6-10.3); Creatinine Clr Calc Pharmacy 45.8 ml/min; Est GFR (African American) 65.3 ml/min; Est GFR (Non-African American) 56.3 ml/min; Potassium 4.4 mmol/L (3.5-5.1)
--- NOTE | 2023-12-15 11:18 | Hospitalist Progress Note ---
Date of Service December 15, 2023 Assessment & Plan (1) Fall: Plan: Multiple falls, weakness Suspect multifactorial w/ of UTI, patient has had deconditioning with multiple recent hospital admissions, recently controlled diarrhea after a long course of GI losses PT/OT recommending rehab Hip/pelvis x-ray without acute fracture/bony abnormality CT head without any acute intracranial findings, there is a posterior scalp hematoma noted CT chest C-spine without acute fracture or subluxation -CBC reviewed 12/14: hgb 10.5 appears patient has had slow decline in hgb over last 8-9 months. - normocytic anemia -BMP reviewed 12/14: K WNL, creatinine 0.97, BUN 39 spironolactone and lisinopril on hold -orthostatic vitals obtained 12/14 - lying 125/74, sitting 145/76, standing 112/66 -Gabapentin held - patient reports being on higher doses of gabapentin in past which is why PCP recently adjusted this medication. Discussed side effects w/ her -Discussed side effects of Ativan prior to bed. Patient states this is only medication that works for sleep aid. reports she has been taking it for years. -will also hold oxybutynin and Seroquel which is being taken in the morning-both of these can lead to falls especially in the elderly -she is also on oxycodone prn at home-consider stopping this as well due to negative side effects and risk of falls in the elderly AM CBC, BMP (2) Acute UTI: Plan: UTI UA is with 4+ bacteria, nitrates, leukocyte esterase and no epithelial contamination - urine culture + for E coli. Rocephin continued. -with recurrent UTIs, recommend STOPPING oxybutynin (3) Chronic kidney disease, stage 3a: Plan: Creatinine 1.07, at baseline on admission BMP 12/14 reviewed: electrolytes stable, creatinine 0.97. Lisinopril/Spironolactone on hold - Spironolactone should likely not be continued on discharge given persistent issues with hyperkalemia AM BMP (4) Lymphocytic colitis: Plan: Lymphocytic colitis Biopsy-proven on last colonoscopy. Continue budesonide twice daily and Questran twice daily. This should be continued until she is completely symptom-free and stable and then slowly tapered as outpatient. C. difficile gene positive Patient has had diarrhea with biopsy confirming extended colitis. Was transiently on vancomycin p.o. last admission for gene positive C. difficile which was ultimately discontinued when toxin was negative. Follow closely and if clinically worsening would have low threshold to restart vancomycin and retest for conversion (5) Diabetes mellitus, type 2: Plan: Goal BSG [id number], glucose checks AC/at bedtime, DM2/heart healthy diet, Lantus 5 units daily with SSI 45/15 - hgb A1c 15: 6.0% (6) History of CAD (coronary artery disease): Plan: No chest pain prior to admission or around her falls. Troponin is normal Continue aspirin, Brilinta Continue metoprolol Continue isosorbide - Continue statin Orthostatics negative. -Hold spironolactone and lisinopril Plan Chronic conditions: ROMAN: CPAP at bedtime GERD: pantoprazole DVT prophylaxis: SCDs CODE STATUS: DNR/DNI Disposition: medical Diet: Heart healthy, DM 2 Admission and Anticipated Discharge Date Admission Date: December 13, 2023 Subjective Patient seen and examined this morning. Patient reports to still be feeling dizzy but notes improvement from yesterday. When orthostatic vitals were taken this AM, patient noted dizziness upon standing. She denies any other complaints today. Physical Exam 2 Constitutional: WD/WN, vitals as above Eyes: PERRL, conjunctivae normal, anicteric sclerae Respiratory: normal respiratory effort, lungs clear to auscultation Cardiovascular: RRR, no murmur, no edema Psychiatric: A+Ox3, euthymic affect Results & Data Results & Data Vital Signs (Past 12 Hours) Vital Signs Temp Pulse Pulse Resp BP Pulse Ox O2 Del Method 12/15/23 08:04 36.6 C 90 16 145/83 H 97 Room Air 12/14/23 23:20 90 14 98 FiO2 12/15/23 08:04 12/14/23 23:20 21 Laboratory Results 12/15/23 05:50 12/15/23 05:50 PG Care Time/CCT Total # of Minutes Spent Total Time Spent with Patient: Total time spent is greater than 50% in coordination of care (as documented) at patient's floor/unit and/or counseling patient: Coding Level of Care Code 46726 SUB INP/OBS CARE 2/35MIN Diagnoses Fall W19.XXXA Encounter type: initial encounter Acute UTI N39.0 Chronic kidney disease, stage 3a N18.31 Lymphocytic colitis K52.832 Diabetes mellitus, type 2 E11.9 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
[2023-12-15] MEDS: LORazepam 2 MG/1 ML VIAL IV STA (23:13)
[2023-12-16 06:12] LABS: Hematocrit (blood only) 31.9 % (37.0-47.0); Hemoglobin 10.6 g/dl (12.0-16.0); Mean Corpuscular Hemoglobin 28.6 pg (25.0-34.0); Mean Corpuscular Hgb Conc 33.2 g/dL (32.0-36.0); Mean Platelet Volume 9.6 fL (9.4-12.4); Platelet Count 281 K/uL (130-400); RDW Coefficient of Variation 14.8 % (11.5-14.5); Red Blood Count 3.71 M/uL (4.20-5.40); White Blood Count 10.62 K/ul (4.8-10.8)
[2023-12-16 06:27] LABS: BUN Creatinine Ratio 36.7 (10-20); Calcium 9.4 mg/dl (8.6-10.3); Creatinine Clr Calc Pharmacy 49.4 ml/min; Est GFR (African American) 71.5 ml/min; Est GFR (Non-African American) 61.7 ml/min; Potassium 4.4 mmol/L (3.5-5.1)
--- NOTE | 2023-12-16 10:32 | Hospitalist Progress Note ---
Date of Service December 16, 2023 Assessment & Plan (1) Fall: Plan: Multiple falls, weakness Suspect multifactorial w/ of UTI, patient has had deconditioning with multiple recent hospital admissions, recently controlled diarrhea after a long course of GI losses PT/OT recommending rehab Hip/pelvis x-ray without acute fracture/bony abnormality CT head without any acute intracranial findings, there is a posterior scalp hematoma noted CT chest C-spine without acute fracture or subluxation -CBC reviewed 12/15: hgb 10.6 appears patient has had slow decline in hgb over last 8-9 months. - normocytic anemia -BMP reviewed 12/15: K WNL, creatinine 0.97, BUN 33 spironolactone and lisinopril on hold -orthostatic vitals obtained 12/14 - lying 125/74, sitting 145/76, standing 112/66 -Gabapentin held - patient reports being on higher doses of gabapentin in past which is why PCP recently adjusted this medication. Discussed side effects w/ her Patient reports improvement in neuropathy with being off medication. 12/15 -Discussed side effects of Ativan prior to bed. Patient states this is only medication that works for sleep aid. reports she has been taking it for years. -would recommend avoiding extra doses of benzodiazepines prn than her scheduled Ativan prior to bed. -added Hydroxyzine prn for worsened anxiety. -will also hold oxybutynin and Seroquel which is being taken in the morning-both of these can lead to falls especially in the elderly -she is also on oxycodone prn at home-consider stopping this as well due to negative side effects and risk of falls in the elderly AM CBC, BMP (2) Acute UTI: Plan: UTI UA is with 4+ bacteria, nitrates, leukocyte esterase and no epithelial contamination - urine culture + for E coli. Rocephin continued. -with recurrent UTIs, recommend STOPPING oxybutynin (3) Chronic kidney disease, stage 3a: Plan: Creatinine 1.07, at baseline on admission BMP 12/14 reviewed: electrolytes stable, creatinine 0.97. Lisinopril/Spironolactone on hold - Spironolactone should likely not be continued on discharge given persistent issues with hyperkalemia AM BMP (4) Lymphocytic colitis: Plan: Lymphocytic colitis Biopsy-proven on last colonoscopy. Continue budesonide twice daily and Questran twice daily. This should be continued until she is completely symptom-free and stable and then slowly tapered as outpatient. C. difficile gene positive Patient has had diarrhea with biopsy confirming extended colitis. Was transiently on vancomycin p.o. last admission for gene positive C. difficile which was ultimately discontinued when toxin was negative. Follow closely and if clinically worsening would have low threshold to restart vancomycin and retest for conversion (5) Diabetes mellitus, type 2: Plan: Goal BSG 306992, glucose checks AC/at bedtime, DM2/heart healthy diet, Lantus 5 units daily with SSI 45/15 - hgb A1c 11/28: 6.0% (6) History of CAD (coronary artery disease): Plan: No chest pain prior to admission or around her falls. Troponin is normal Continue aspirin, Brilinta Continue metoprolol Continue isosorbide - Continue statin Orthostatics negative. -Hold spironolactone and lisinopril Plan Chronic conditions: ROMAN: CPAP at bedtime GERD: pantoprazole DVT prophylaxis: SCDs CODE STATUS: DNR/DNI Disposition: medical, awaiting rehab placement Diet: Heart healthy, DM 2 Admission and Anticipated Discharge Date Admission Date: December 13, 2023 Subjective Patient seen and examined this morning at bedside. Patient states she had a very bad night and required an extra dose of Ativan to calm down. Per nursing she was screaming in her room. Today she feels less dizzy and notes the neuropathy in her hands has improved. Physical Exam 2 Constitutional: WD/WN, vitals as above Eyes: PERRL, conjunctivae normal, anicteric sclerae Respiratory: normal respiratory effort, lungs clear to auscultation Cardiovascular: RRR, no murmur, no edema Psychiatric: A+Ox3, euthymic affect Results & Data Results & Data Vital Signs (Past 12 Hours) Vital Signs Temp Pulse Pulse Resp BP BP Pulse Ox 12/16/23 07:20 36.4 C L 90 18 143/76 H 99 12/16/23 03:19 87 18 99 12/16/23 03:01 36.5 C 86 18 167/86 H 99 12/16/23 00:06 36.4 C L 90 20 181/91 H 98 12/15/23 23:41 91 H 14 98 O2 Del Method FiO2 12/16/23 07:20 Room Air 12/16/23 03:19 12/16/23 03:01 Room Air 12/16/23 00:06 Room Air 12/15/23 23:41 21 Laboratory Results 12/16/23 05:45 12/16/23 05:45 PG Care Time/CCT Total # of Minutes Spent Total Time Spent with Patient: Total time spent is greater than 50% in coordination of care (as documented) at patient's floor/unit and/or counseling patient: Coding Level of Care Code 94960 SUB INP/OBS CARE 2/35MIN Diagnoses Fall W19.XXXA Encounter type: initial encounter Acute UTI N39.0 Chronic kidney disease, stage 3a N18.31 Lymphocytic colitis K52.832 Diabetes mellitus, type 2 E11.9 Diabetes mellitus complication detail: with polyneuropathy 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
[2023-12-17] MEDS: hydrOXYzine HCl 10 MG TAB PO PRN (01:32)
[2023-12-17] MEDS: INFLUENZA VACC TS2024-25(65y+)/PF (IIV3) 0.5mL Syr IM ONE (05:33)
[2023-12-17 06:11] LABS: Hemoglobin 10.6 g/dl (12.0-16.0); Mean Corpuscular Hemoglobin 28.4 pg (25.0-34.0); Mean Corpuscular Hgb Conc 33.1 g/dL (32.0-36.0); Mean Corpuscular Volume 85.8 fL (80.0-100.0); Mean Platelet Volume 9.6 fL (9.4-12.4); Platelet Count 265 K/uL (130-400); RDW Coefficient of Variation 14.7 % (11.5-14.5); RDW Standard Deviation 45.7 fL (36.4-46.3); Red Blood Count 3.73 M/uL (4.20-5.40); White Blood Count 7.44 K/ul (4.8-10.8)
[2023-12-17 06:24] LABS: BUN Creatinine Ratio 29.8 (10-20); Calcium 9.3 mg/dl (8.6-10.3); Creatinine Clr Calc Pharmacy 48.1 ml/min; Potassium 4.1 mmol/L (3.5-5.1)
--- NOTE | 2023-12-17 10:36 | Hospitalist Progress Note ---
Date of Service December 17, 2023 Assessment & Plan (1) Fall: Plan: Multiple falls, weakness Suspect multifactorial with acute UTI, deconditioning with multiple recent hospital admissions, recently controlled diarrhea after a long course of GI losses PT/OT recommending rehab Hip/pelvis x-ray without acute fracture/bony abnormality CT head without any acute intracranial findings, there is a posterior scalp hematoma noted CT chest C-spine without acute fracture or subluxation - Hgb decline over past 8-9 months, normocytic anemia - Orthostatic vitals obtained 12/14 - lying 125/74, sitting 145/76, standing 112/66 - Gabapentin held - patient reports being on higher doses of gabapentin in past which is why PCP recently adjusted this medication. Discussed side effects with her > Patient reports improvement in neuropathy with being off medication - Discussed side effects of Ativan prior to bed. Patient states this is only medication that works for sleep aid. Reports she has been taking it for years. - Would recommend avoiding extra doses of benzodiazepines prn than her scheduled Ativan prior to bed - Added Hydroxyzine prn for worsened anxiety. - will also hold oxybutynin and Seroquel which is being taken in the morning - both of these can lead to falls especially in the elderly - she is also on oxycodone prn at home - consider stopping this as well due to negative side effects and risk of falls in the elderly (2) Acute UTI: Plan: UTI Urine culture revealing E. coli with resistance Continue ceftriaxone, last dose 12/23/23 -with recurrent UTIs, recommend STOPPING oxybutynin (3) Chronic kidney disease, stage 3a: Plan: Baseline Cr around 0.9-1.1 Electrolytes stable, Cr at baseline - Lisinopril/Spironolactone on hold - Spironolactone should likely not be continued on discharge given persistent issues with hyperkalemia (4) Lymphocytic colitis: Plan: Lymphocytic colitis Biopsy-proven on last colonoscopy. Continue budesonide twice daily and Questran twice daily. This should be continued until she is completely symptom-free and stable and then slowly tapered as outpatient. C. difficile gene positive Patient has had diarrhea with biopsy confirming extended colitis. Was transiently on vancomycin p.o. last admission for gene positive C. difficile which was ultimately discontinued when toxin was negative. Follow closely and if clinically worsening would have low threshold to restart vancomycin and retest for conversion (5) Diabetes mellitus, type 2: Plan: Goal BSG 739512, glucose checks AC/at bedtime, DM2/heart healthy diet, Lantus 5 units daily with SSI 45/15 - hgb A1c 11/28: 6.0% (6) History of CAD (coronary artery disease): Plan: No chest pain prior to admission or around her falls. Troponin is normal Continue aspirin, Brilinta Continue metoprolol Continue isosorbide - Continue statin Orthostatics negative. - Hold spironolactone and lisinopril Plan Started Remeron Ordered Zofran as needed Discussed discharge planning with case management Chronic conditions: ROMAN: CPAP at bedtime GERD: pantoprazole DVT prophylaxis: SCDs CODE STATUS: DNR/DNI Admission and Anticipated Discharge Date Admission Date: December 13, 2023 Subjective Patient seen and evaluated at bedside. She reports that she feels very tired and nauseous. She denies any vomiting, diarrhea, or constipation. She notes that her appetite is decreased recently. She became tearful when discussing her decline lately, noting this is her 5th hospitalization in 3.5 months. We discussed trying Remeron for depression and appetite stimulation, and she is agreeable. Continue inpatient stay while awaiting on rehab. No additional complaints or concerns at this time. Physical Exam Physical Exam: General: No acute distress, nondiaphoretic, well-developed, well-nourished. Skin: The skin was without rashes, erythema, edema, or bruising. Cardiac: Regular rate and rhythm without murmurs gallops or rubs. Pulm: Clear to auscultation bilaterally without wheezes, rales or rhonchi. No respiratory distress. 99% on room air. Abdominal: Soft, nontender, nondistended. Bowel sounds present. Neuro: A&O x3. No focal neurological deficits. Results & Data Results & Data Vital Signs (Past 12 Hours) Vital Signs Temp Pulse Pulse Resp BP Pulse Ox O2 Del Method 12/17/23 07:05 98.1 F 92 H 16 173/98 H 98 Room Air 12/17/23 04:34 83 19 98 12/17/23 00:35 80 19 99 Laboratory Results Reviewed CBC Reviewed BMP PG Care Time/CCT Total # of Minutes Spent Total Time Spent with Patient: Total time spent is greater than 50% in coordination of care (as documented) at patient's floor/unit and/or counseling patient: Coding Level of Care Code 51592 SUB INP/OBS CARE MIN Diagnoses Fall W19.XXXA Encounter type: initial encounter Acute UTI N39.0 Chronic kidney disease, stage 3a N18.31 Lymphocytic colitis K52.832 Diabetes mellitus, type 2 E11.9 Diabetes mellitus complication detail: with polyneuropathy Diabetes mellitus bed bug exterminator insulin use: with bed bug exterminator use History of CAD (coronary artery disease) Z86.79 (1) Fall Encounter type: initial encounter Qualified Code(s): W19.XXXA - Unspecified fall, initial encounter (5) Diabetes mellitus, type 2 Diabetes mellitus complication detail: with polyneuropathy Diabetes mellitus bed bug exterminator insulin use: with intermediate use
[2023-12-17] MEDS: ONDANSETRON INJ 2 MG/ML 2 ML VIAL IV PRN (11:07)
[2023-12-17] MEDS: MIRTAZAPINE TAB 15 MG TAB PO SCH (22:11)
[2023-12-18 06:20] LABS: Hematocrit (blood only) 31.2 % (37.0-47.0); Hemoglobin 10.6 g/dl (12.0-16.0); Mean Corpuscular Hemoglobin 28.8 pg (25.0-34.0); Mean Corpuscular Volume 84.8 fL (80.0-100.0); Mean Platelet Volume 9.6 fL (9.4-12.4); Platelet Count 260 K/uL (130-400); RDW Coefficient of Variation 14.6 % (11.5-14.5); RDW Standard Deviation 45.2 fL (36.4-46.3); Red Blood Count 3.68 M/uL (4.20-5.40); White Blood Count 6.73 K/ul (4.8-10.8)
[2023-12-18 06:38] LABS: BUN Creatinine Ratio 28.6 (10-20); Calcium 9.1 mg/dl (8.6-10.3); Creatinine Clr Calc Pharmacy 44.4 ml/min; Potassium 4.2 mmol/L (3.5-5.1)
--- NOTE | 2023-12-18 09:48 | Hospitalist Progress Note ---
Date of Service December 18, 2023 Assessment & Plan (1) Fall: Plan: Multiple falls, weakness Suspect multifactorial with acute UTI, deconditioning with multiple recent hospital admissions, recently controlled diarrhea after a long course of GI losses Hip/pelvis x-ray without acute fracture/bony abnormality CT head without any acute intracranial findings, there is a posterior scalp hematoma noted CT chest C-spine without acute fracture or subluxation - Hgb decline over past 8-9 months, normocytic anemia - Orthostatic vitals obtained 12/14 - lying 125/74, sitting 145/76, standing 112/66 PT/OT recommending rehab - Referrals made via case management - Gabapentin held - patient reports being on higher doses of gabapentin in past which is why PCP recently adjusted this medication. Discussed side effects with her > Patient reports improvement in neuropathy with being off medication - Discussed side effects of Ativan prior to bed. Patient states this is only medication that works for sleep aid. Reports she has been taking it for years. - Would recommend avoiding extra doses of benzodiazepines prn than her scheduled Ativan prior to bed - Added Hydroxyzine prn for worsened anxiety. - will also hold oxybutynin and Seroquel which is being taken in the morning - both of these can lead to falls especially in the elderly - she is also on oxycodone prn at home - consider stopping this as well due to negative side effects and risk of falls in the elderly (2) Acute UTI: Plan: UTI Urine culture revealing E. coli with resistance Continue ceftriaxone, last dose 12/23/23 - with recurrent UTIs, recommend STOPPING oxybutynin (3) Chronic kidney disease, stage 3a: Plan: Baseline Cr around 0.9-1.1 Electrolytes stable, Cr at baseline - Lisinopril/Spironolactone on hold - Spironolactone should likely not be continued on discharge given persistent issues with hyperkalemia (4) Lymphocytic colitis: Plan: Lymphocytic colitis Biopsy-proven on last colonoscopy. Continue budesonide twice daily and Questran twice daily. This should be continued until she is completely symptom-free and stable and then slowly tapered as outpatient. C. difficile gene positive Patient has had diarrhea with biopsy confirming extended colitis. Was transiently on vancomycin p.o. last admission for gene positive C. difficile which was ultimately discontinued when toxin was negative. Follow closely and if clinically worsening would have low threshold to restart vancomycin and retest for conversion (5) Diabetes mellitus, type 2: Plan: Goal BSG 500584, glucose checks AC/at bedtime, DM2/heart healthy diet, Lantus 5 units daily with SSI 45/15 - hgb A1c 11/28: 6.0% (6) History of CAD (coronary artery disease): Plan: No chest pain prior to admission or around her falls. Troponin is normal Continue aspirin, Brilinta Continue metoprolol Continue isosorbide - Continue statin Orthostatics negative. - Hold spironolactone and lisinopril Plan Discussed discharge planning with case management - waiting placement Chronic conditions: ROMAN: CPAP at bedtime GERD: pantoprazole DVT prophylaxis: SCDs CODE STATUS: DNR/DNI Admission and Anticipated Discharge Date Admission Date: December 13, 2023 Subjective Patient seen and evaluated in bedside chair while eating lunch. She reports that she slept well last night, but her appetite remains diminished today. She denies any nausea at this time. She expressed some disappointment regarding her denials from two of the rehab facilities. No additional complaints or concerns at this time. Physical Exam Physical Exam: General: No acute distress, nondiaphoretic, well-developed, well-nourished. Skin: The skin was without rashes, erythema, edema, or bruising. Cardiac: Regular rate and rhythm without murmurs gallops or rubs. Pulm: Clear to auscultation bilaterally without wheezes, rales or rhonchi. No respiratory distress. 99% on room air. Abdominal: Soft, nontender, nondistended. Bowel sounds present. Neuro: A&O x3. No focal neurological deficits. Results & Data Results & Data Vital Signs (Past 12 Hours) Vital Signs Temp Pulse Pulse Resp BP Pulse Ox O2 Del Method 12/18/23 07:09 97.9 F 85 16 146/81 H 99 Room Air 12/18/23 03:45 91 H 13 97 12/17/23 23:05 90 16 99 Laboratory Results Reviewed CBC Reviewed BMP PG Care Time/CCT Total # of Minutes Spent Total Time Spent with Patient: Total time spent is greater than 50% in coordination of care (as documented) at patient's floor/unit and/or counseling patient: Coding Level of Care Code 54029 SUB INP/OBS CARE 2/35MIN Diagnoses Fall W19.XXXA Encounter type: initial encounter Acute UTI N39.0 Chronic kidney disease, stage 3a N18.31 Lymphocytic colitis K52.832 Diabetes mellitus, type 2 E11.9 Diabetes mellitus complication detail: with polyneuropathy Diabetes mellitus intermediate frame tender insulin use: with senior living use History of CAD (coronary artery disease) Z86.79 (1) Fall Encounter type: initial encounter Qualified Code(s): W19.XXXA - Unspecified fall, initial encounter (5) Diabetes mellitus, type 2 Diabetes mellitus complication detail: with polyneuropathy Diabetes mellitus intermediate frame tender insulin use: with intermediate frame tender use
[2023-12-19 06:36] LABS: BUN Creatinine Ratio 26.2 (10-20); Calcium 9.3 mg/dl (8.6-10.3); Creatinine Clr Calc Pharmacy 37.8 ml/min; Potassium 4.3 mmol/L (3.5-5.1)
[2023-12-19] MEDS: ACETAMINOPHEN 325 MG TAB PO PRN (10:56)
--- NOTE | 2023-12-19 14:27 | Hospitalist Progress Note ---
<Statement entered by Ely Vargas MD - 12/19/23 17:51> I have reviewed vital signs, chart notes, labs and imaging. I have personally seen, evaluated and examined the patient. I have also discussed the management of the patient with the GAYATHRI and I agree with the exam findings documented in the history and physical examination and the documented assessment and plan unless otherwise stated below. Non-anion gap metabolic acidosis, history of hyperkalemia though was on spironolactone. Could be related to excessive stool losses of bicarbonate with her lymphocytic colitis could also have diabetic type IV RTA started sodium bicarbonate, monitor BMP Date of Service December 19, 2023 Assessment & Plan (1) Fall: Plan: Multiple falls, weakness Suspect multifactorial with acute UTI, deconditioning with multiple recent hospital admissions, recently controlled diarrhea after a long course of GI losses Hip/pelvis x-ray without acute fracture/bony abnormality CT head without any acute intracranial findings, there is a posterior scalp hematoma noted CT chest C-spine without acute fracture or subluxation - Hgb decline over past 8-9 months, normocytic anemia - Orthostatic vitals obtained 12/14 - lying 125/74, sitting 145/76, standing 112/66 PT/OT recommending rehab - Referrals made via case management - awaiting placement - Gabapentin held - patient reports being on higher doses of gabapentin in past which is why PCP recently adjusted this medication. Discussed side effects with her > Patient reports worsening of neuropathy with being off medication, could consider restarting at 100mg once daily if needed. - Discussed side effects of Ativan prior to bed. Patient states this is only medication that works for sleep aid. Reports she has been taking it for years. - Would recommend avoiding extra doses of benzodiazepines prn than her scheduled Ativan prior to bed - Added Hydroxyzine prn for worsened anxiety. - will also hold oxybutynin and Seroquel which is being taken in the morning - both of these can lead to falls especially in the elderly - she is also on oxycodone prn at home - consider stopping this as well due to negative side effects and risk of falls in the elderly (2) Acute UTI: Plan: UTI Urine culture revealing E. coli with resistance Will discontinue Ceftriaxone and switch to oral Keflex x 2 days - with recurrent UTIs, recommend STOPPING oxybutynin, currently on hold. (3) Chronic kidney disease, stage 3a: Plan: Baseline Cr around 0.9-1.1 Electrolytes stable, Cr at baseline - Lisinopril/Spironolactone on hold - Carbon Dioxide 17 today - start sodium bicarb BID - Spironolactone should likely not be continued on discharge given persistent issues with hyperkalemia (4) Lymphocytic colitis: Plan: Lymphocytic colitis Biopsy-proven on last colonoscopy. Continue budesonide twice daily and Questran twice daily. This should be continued until she is completely symptom-free and stable and then slowly tapered as outpatient. C. difficile gene positive Patient has had diarrhea with biopsy confirming extended colitis. Was transiently on vancomycin p.o. last admission for gene positive C. difficile which was ultimately discontinued when toxin was negative. Follow closely and if clinically worsening would have low threshold to restart vancomycin and retest for conversion. Not currently experiencing diarrhea. (5) Diabetes mellitus, type 2: Plan: Goal BSG 145502, glucose checks AC/at bedtime, DM2/heart healthy diet, Lantus 5 units daily with SSI 45/15 - hgb A1c 11/28: 6.0% (6) History of CAD (coronary artery disease): Plan: No chest pain prior to admission or around her falls. Troponin is normal Continue aspirin, Brilinta Continue metoprolol Continue isosorbide - Continue statin Orthostatics negative - Hold spironolactone and lisinopril (7) Abdominal pain: Plan: - Only lasting 20 minutes thus far and patient not in any acute distress. - Mild tenderness to palpation in LLQ, but no guarding/abnormality felt - ? gas pain - Discussed with patient that abdominal pain may be secondary to gas. Since it just started, recommended her monitoring it closely and alerting the nurse if new or worsening symptoms occur. If pain does not subside or worsens, consider further evaluation. Plan Discussed discharge planning with case management - waiting placement Chronic conditions: ROMAN: CPAP at bedtime GERD: pantoprazole DVT prophylaxis: SCDs, Lovenox added CODE STATUS: DNR/DNI Admission and Anticipated Discharge Date Admission Date: December 13, 2023 Petey Mccall is a 78 yo female with a past medical history of type II DM, C. difficile gene positive toxin negative status, lymphocytic colitis biopsy confirmed, GERD, weakness, multiple falls, and dyslipidemia. Stefany was at her assisted care facility when she had a fall backwards striking the back of her head. She is on DAPT for PCI in the last year. She is brought to the hospital for evaluation, this is her second fall in 48 hours with head strike and third fall this week. Due to progressive weakness and multiple falls she was recommended for admission, PT/OT and evaluation for higher level of care. Cspine CT showed no evidence of fracture or subluxation, CXR showed no active disease, Head CT showed no hemorrhage, mass effect, or evidence of acute territorial ischemia - posterior scalp hematoma was noted. Hip/Pelvis XR showed no acute bony abnormality. Urine culture from 12/11 showed E.Coli UTI - currently being treated with Rocephin. Patient seen today which resting in bed. She reports ongoing neck discomfort and decreased appetite. She denies any nausea/vomiting. She reports some mild abdominal discomfort that started approx 20 min prior to evaluation - she noted it while urinating and states it did not go away. She reports its as a constant ache. Last BM was yesterday. She would like to be discharged but is awaiting placement. Review of Systems Constitutional: no fever and no chills Decreased appetite Respiratory: no cough, no chest congestion, no dyspnea and no dyspnea on exertion Cardiovascular: no chest pain Gastrointestinal: + abdominal pain (Mild, bilateral upper and lower); no early satiety, no nausea, no vomiting and no diarrhea/loose stools Genitourinary: no dysuria, no difficulty urinating, no urinary frequency, no urinary hesitancy, no urinary urgency and no hematuria Musculoskeletal: + neck pain; no swelling Physical Exam Constitutional: well developed and well nourished; no acute distress Eyes: PERRL, conjunctivae normal, anicteric sclerae Neck: normal visual inspection, trachea midline and + neck tender (Mildly (posterior neck/Cspine) ) Respiratory: normal respiratory effort and able to speak in complete sentences; no respiratory distress, no labored breathing and no cough Auscultation: lungs clear to auscultation bilaterally Cardiovascular: RRR, no murmur, no edema Gastrointestinal (Abdomen): Inspection/Auscultation: abdomen normal to inspection and normal bowel sounds; abdomen not distended Percussion/Palpation: + abdomen tender (RLQ - mild) and abdomen soft; no guarding and abdomen not rigid Psychiatric: Orientation: alert and oriented x 3 Results & Data Results & Data Vital Signs (Past 12 Hours) Vital Signs Temp Pulse Pulse Resp BP Pulse Ox O2 Del Method 12/19/23 07:49 36.6 C 77 16 142/80 H 99 Room Air 12/19/23 07:30 CPAP 12/19/23 02:54 88 19 91 FiO2 12/19/23 07:49 12/19/23 07:30 12/19/23 02:54 21 Laboratory Results 12/19/23 12/19/23 12/19/23 Range/Units 11:14 07:53 05:44 Sodium 137 (136-145) mmol/L Potassium 4.3 (3.5-5.1) mmol/L Chloride 113 H (98-107) mmol/L Carbon Dioxide 17 L (21-32) mmol/L Anion Gap 7 (3-11) BUN 28 H (6-23) mg/dl Creatinine 1.07 (0.6-1.2) mg/dl Est Cr Clr Drug Dosing 37.8 ml/min eGFR 53.50 BUN/Creatinine Ratio 26.2 H (10-20) Glucose 104 H (70-99(Fasting)) mg/dl POC Glucose 238 H 108 H (70-99) mg/dl Calcium 9.3 (8.6-10.3) mg/dl 12/18/23 12/18/23 Range/Units 20:30 16:44 Sodium (136-145) mmol/L Potassium (3.5-5.1) mmol/L Chloride (98-107) mmol/L Carbon Dioxide (21-32) mmol/L Anion Gap (3-11) BUN (6-23) mg/dl Creatinine (0.6-1.2) mg/dl Est Cr Clr Drug Dosing ml/min eGFR BUN/Creatinine Ratio (10-20) Glucose (70-99(Fasting)) mg/dl POC Glucose 187 H 180 H (70-99) mg/dl Calcium (8.6-10.3) mg/dl PG Care Time/CCT Total # of Minutes Spent Total Time Spent with Patient: Total time spent is greater than 50% in coordination of care (as documented) at patient's floor/unit and/or counseling patient: Coding [place] [address] SUB INP/OBS CARE 2/35MIN Patient Type Established History Expanded Problem Focused Exam Expanded Problem Focused Medical Decision Making Moderate Complexity Diagnoses Fall W19.XXXA Encounter type: initial encounter Acute UTI N39.0 Chronic kidney disease, stage 3a N18.31 Lymphocytic colitis K52.832 Diabetes mellitus, type 2 E11.9 Diabetes mellitus complication detail: with polyneuropathy Diabetes mellitus alf insulin use: with roasterman use History of CAD (coronary artery disease) Z86.79 Right lower quadrant abdominal pain R10.84 Abdominal location: generalized (1) Fall Encounter type: initial encounter Qualified Code(s): W19.XXXA - Unspecified fall, initial encounter (5) Diabetes mellitus, type 2 Diabetes mellitus complication detail: with polyneuropathy Diabetes mellitus roasterman insulin use: with roasterman use (7) Abdominal pain Abdominal location: generalized Qualified Code(s): R10.84 - Generalized abdominal pain
[2023-12-19] MEDS: ENOXAPARIN INJ 40 MG/0.4 ML SYR SQ SCH (18:18)
[2023-12-19] MEDS: SODIUM BICARBONATE 650 MG TAB PO SCH (21:09)
[2023-12-20] MEDS: cephALEXin 500 MG CAP PO SCH (08:54)
--- NOTE | 2023-12-20 14:48 | Hospitalist Progress Note ---
<Statement entered by Ely Vargas MD - 12/20/23 17:44> I have reviewed vital signs, chart notes, labs and imaging. I have also discussed the management of the patient with the GAYATHRI and I agree with the exam findings documented in the history and physical examination and the documented assessment and plan unless otherwise stated below. Having diarrhea with some abdominal pain, BUN/creatinine elevated on afternoon labs creatinine 1.26. Diuretics and ROSELINE were already held. Will give 1 L crystalloid for presumed volume depletion, check labs in morning. She has h istory of C. difficile gene positive but toxin negative recently and has been on antibiotics for UTI for a week. Agree with starting oral vancomycin pending C. difficile testing Date of Service December 20, 2023 Assessment & Plan (1) Fall: Plan: Multiple falls, weakness Suspect multifactorial with acute UTI, deconditioning with multiple recent hospital admissions, recently controlled diarrhea after a long course of GI losses Hip/pelvis x-ray without acute fracture/bony abnormality CT head without any acute intracranial findings, there is a posterior scalp hematoma noted CT chest C-spine without acute fracture or subluxation - Hgb decline over past 8-9 months, normocytic anemia. B12 306 in October - put on b12 supplementation. - Orthostatic vitals obtained 12/14 - lying 125/74, sitting 145/76, standing 112/66 PT/OT recommending rehab - Referrals made via case management - awaiting placement - Gabapentin held - patient reports being on higher doses of gabapentin in past which is why PCP recently adjusted this medication. Discussed side effects with her > Patient reports worsening of neuropathy with being off medication, could consider restarting at 100mg once daily if needed. She reports continued neuropathy in bilteral hands and feet, would like to try the lower dose. Start on 100mg at bedtime. - Discussed side effects of Ativan prior to bed. Patient states this is only medication that works for sleep aid. Reports she has been taking it for years. - Would recommend avoiding extra doses of benzodiazepines prn than her scheduled Ativan prior to bed - Added Hydroxyzine prn for worsened anxiety. - will also hold oxybutynin and Seroquel which is being taken in the morning - both of these can lead to falls especially in the elderly - she is also on oxycodone prn at home - consider stopping this as well due to negative side effects and risk of falls in the elderly (2) Acute UTI: Plan: UTI Urine culture revealing E. coli with resistance Discontinued Ceftriaxone and switched to oral Keflex x 2 days - with recurrent UTIs, recommend STOPPING oxybutynin, currently on hold. (3) Chronic kidney disease, stage 3a: Plan: Baseline Cr around 0.9-1.1 Electrolytes stable, Cr at baseline - Lisinopril/Spironolactone on hold - Carbon Dioxide 17 today - start sodium bicarb BID. BMP ordered now. - Spironolactone should likely not be continued on discharge given persistent issues with hyperkalemia (4) Lymphocytic colitis: Plan: Lymphocytic colitis Biopsy-proven on last colonoscopy. Continue budesonide twice daily and Questran twice daily. This should be continued until she is completely symptom-free and stable and then slowly tapered as outpatient. C. difficile gene positive on last admission Patient has had diarrhea with biopsy confirming extended colitis in October. Was transiently on vancomycin p.o. last admission for gene positive C. difficile which was ultimately discontinued when toxin was negative. Developed Diarrhea today - stool sample ordered. Will start her on vancomycin empirically and await results, especially since she is experiencing some mild abdominal pain. Contact precautions ordered until results obtained. (5) Diabetes mellitus, type 2: Plan: Goal BSG 139612, glucose checks AC/at bedtime, DM2/heart healthy diet, Lantus 5 units daily with SSI 45/15 - hgb A1c 11/28: 6.0% (6) History of CAD (coronary artery disease): Plan: No chest pain prior to admission or around her falls. Troponin is normal Continue aspirin, Brilinta Continue metoprolol Continue isosorbide - Continue statin Orthostatics negative - Hold spironolactone and lisinopril (7) Abdominal pain: Plan: - Continued from yesterday but improved. She is now experiencing diarrhea so will check Cdiff and monitor for worsening symptoms. - Mild tenderness to palpation in RLQ, but no guarding/abnormality felt Plan Discussed discharge planning with case management - waiting placement Chronic conditions: ROMAN: CPAP at bedtime GERD: pantoprazole DVT prophylaxis: SCDs, Lovenox CODE STATUS: DNR/DNI Admission and Anticipated Discharge Date Admission Date: December 13, 2023 Petey Mccall is a 78 yo female with a past medical history of type II DM, C. difficile gene positive toxin negative status, lymphocytic colitis biopsy confirmed, GERD, weakness, multiple falls, and dyslipidemia. Stefany was at her assisted care facility when she had a fall backwards striking the back of her head. She is on DAPT for PCI in the last year. She is brought to the hospital for evaluation, this is her second fall in 48 hours with head strike and third fall this week. Due to progressive weakness and multiple falls she was recommended for admission, PT/OT and evaluation for higher level of care. Cspine CT showed no evidence of fracture or subluxation, CXR showed no active disease, Head CT showed no hemorrhage, mass effect, or evidence of acute territorial ischemia - posterior scalp hematoma was noted. Hip/Pelvis XR showed no acute bony abnormality. Urine culture from 12/11 showed E.Coli UTI - currently being treated with Rocephin but switch to oral Keflex today. Patient seen today which resting in bed. She reports ongoing neck discomfort and decreased appetite. She denies any nausea/vomiting. She reports some mild abdominal discomfort that started yesterday, reports mild improvement of this, somewhat improved after a bowel movement. Of note, she had 2 episodes of diarrhea today - brown, liquid. She would like to be discharged but is awaiting placement. Review of Systems Constitutional: no fever and no chills Decreased appetite Respiratory: no cough, no chest congestion, no dyspnea and no dyspnea on exertion Cardiovascular: no chest pain Gastrointestinal: + abdominal pain (Mild, bilateral upper and lower) and + diarrhea/loose stools; no early satiety, no nausea, no vomiting and no blood in stools Genitourinary: no dysuria, no difficulty urinating, no urinary frequency, no urinary hesitancy, no urinary urgency and no hematuria Musculoskeletal: + neck pain; no swelling Physical Exam Constitutional: well developed and well nourished; no acute distress Eyes: PERRL, conjunctivae normal, anicteric sclerae Neck: normal visual inspection, trachea midline and + neck tender (Mildly (posterior neck/Cspine) ) Respiratory: normal respiratory effort and able to speak in complete sentences; no respiratory distress, no labored breathing and no cough Auscultation: lungs clear to auscultation bilaterally Cardiovascular: RRR, no murmur, no edema Gastrointestinal (Abdomen): Inspection/Auscultation: abdomen normal to inspection and normal bowel sounds; abdomen not distended Percussion/Palpation: + abdomen tender (RLQ - mild) and abdomen soft; no guarding and abdomen not rigid Psychiatric: Orientation: alert and oriented x 3 Results & Data Results & Data Vital Signs (Past 12 Hours) Vital Signs Temp Pulse Resp BP Pulse Ox O2 Del Method 12/20/23 07:45 98 12/20/23 07:37 36.1 C L 81 16 148/73 H 99 CPAP PG Care Time/CCT Total # of Minutes Spent Total Time Spent with Patient: Total time spent is greater than 50% in coordination of care (as documented) at patient's floor/unit and/or counseling patient: Coding [place] [address] SUB INP/OBS CARE 2/35MIN Patient Type Established History Expanded Problem Focused Exam Expanded Problem Focused Medical Decision Making Moderate Complexity Diagnoses Fall W19.XXXA Encounter type: initial encounter Acute UTI N39.0 Chronic kidney disease, stage 3a N18.31 Lymphocytic colitis K52.832 Diabetes mellitus, type 2 E11.9 Diabetes mellitus complication detail: with polyneuropathy Diabetes mellitus exterminator helper insulin use: with exterminator helper use History of CAD (coronary artery disease) Z86.79 Right lower quadrant abdominal pain R10.84 Abdominal location: generalized (1) Fall Encounter type: initial encounter Qualified Code(s): W19.XXXA - Unspecified fall, initial encounter (5) Diabetes mellitus, type 2 Diabetes mellitus complication detail: with polyneuropathy Diabetes mellitus exterminator helper insulin use: with usp use (7) Abdominal pain Abdominal location: generalized Qualified Code(s): R10.84 - Generalized abdominal pain
[2023-12-20] MEDS: CYANOCOBALAMIN (B-12) 500 MCG TABLET PO SCH (15:34)
[2023-12-20] MEDS: ADVANCED PROBIOTIC 625 MG CAPSULE PO SCH (15:34)
[2023-12-20 15:44] LABS: BUN Creatinine Ratio 27.8 (10-20); Calcium 8.7 mg/dl (8.6-10.3); Creatinine Clr Calc Pharmacy 32.1 ml/min; Potassium 3.6 mmol/L (3.5-5.1)
[2023-12-20] MEDS: CHERRY SYRUP 5 ML UDP PO SCH (17:59)
[2023-12-20] MEDS: VANCOMYCIN HCL 125 MG/2.5ML SOLN PO SCH (17:59)
[2023-12-20] MEDS: LACTATED RINGER'S 1,000 ML IV ONE (18:32)
[2023-12-20 21:08] LABS: Cdiff Antigen Positive; Cdiff Toxin B Gene (2yr or >) Positive Cdiff Gene (Neg)
[2023-12-20 21:10] LABS: Cdiff Toxin A+B Positive Cdiff Toxin (Negative)
[2023-12-20] MEDS: GABAPENTIN 100 MG CAP PO SCH (21:54)
[2023-12-21 08:50] LABS: Calcium 8.8 mg/dl (8.6-10.3); Potassium 3.7 mmol/L (3.5-5.1)
[2023-12-21 08:56] LABS: BUN Creatinine Ratio 31.7 (10-20); Creatinine Clr Calc Pharmacy 49.3 ml/min
--- NOTE | 2023-12-21 14:47 | Hospitalist Progress Note ---
Date of Service December 21, 2023 Assessment & Plan (1) C. difficile colitis: Plan: 78-year-old woman with recurrent UTIs admitted after multiple falls, generalized weakness, urinary tract infection. treated E. coli UTI with ceftriaxone. 12/19 developed abdominal pain and diarrhea found to have C. difficile - oral vancomycin 4 times daily started 12/19 x 10-day course - discussed with antimicrobial stewardship pharmacist/ID, recommended oral vancomycin since fidaxomicin will be too costly also she is improving rapidly. C. difficile will be a constant issue with her oral budesonide and frequent UTIs. recommendation is to treat uncomplicated UTIs with single dose IV gentamicin 5 mg/kg x 1, this has been shown to be effective and no further antibiotics are required for UTI. Based on culture and sensitivity results here we know that her urinary pathogens are sensitive to gentamicin. This will minimize her antibiotic exposure and risk for recurrent C. difficile. If she is treated with single dose gentamicin for UTI she should also have 3 days worth of prophylaxis with oral vancomycin daily. If she is on other antibiotics she should have vancomycin prophylaxis as well, Typically this is for the duration of the antibiotics +7 additional days. - please communicate this to [facility] as well as Fer and her primary care Dr. Adam on discharge (2) Fall: Plan: Multiple falls, weakness, polypharmacy multifactorial with acute UTI, deconditioning with multiple recent hospital admissions, recently controlled diarrhea after a long course of GI losses Hip/pelvis x-ray without acute fracture/bony abnormality CT head without any acute intracranial findings, there is a posterior scalp hematoma noted CT chest C-spine without acute fracture or subluxation - Hgb decline over past 8-9 months, normocytic anemia. B12 306 in October - put on b12 supplementation. - Orthostatic vitals obtained 12/14 - lying 125/74, sitting 145/76, standing 112/66 PT/OT recommending rehab - has bed for Thursday at [facility] - Gabapentin held - patient reports being on higher doses of gabapentin in past which is why PCP recently adjusted this medication. Discussed side effects with her > Patient reports worsening of neuropathy with being off medication, started on 100mg at bedtime. - Discussed side effects of Ativan prior to bed. Patient states this is only medication that works for sleep aid. Reports she has been taking it for years. - Would recommend avoiding extra doses of benzodiazepines prn than her scheduled Ativan prior to bed - will also hold oxybutynin and Seroquel which is being taken in the morning - both of these can lead to falls especially in the elderly - she is also on oxycodone prn at home - consider stopping this as well due to negative side effects and risk of falls in the elderly (3) Acute UTI: Plan: E. coli UTI - completed treatment with ceftriaxone this admission, stop antibiotics - with recurrent UTIs, recommend stopping oxybutynin, currently on hold. (4) Chronic kidney disease, stage 3a: Plan: Baseline Cr around 0.9-1.1 Electrolytes stable, Cr at baseline - resume lisinopril at lower dose - Carbon Dioxide 17 today - start sodium bicarb BID. BMP ordered now. 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 Miguel (5) Lymphocytic colitis: Plan: Lymphocytic colitis Biopsy-proven on last colonoscopy. Continue budesonide twice daily and Questran twice daily. This should be continued until she is completely symptom-free and stable and then slowly tapered as outpatient. (6) Diabetes mellitus, type 2: Plan: Goal BSG 468103, glucose checks AC/at bedtime, DM2/heart healthy diet, Lantus 5 units daily with SSI 45/15 - hgb A1c 11/28: 6.0% (7) History of CAD (coronary artery disease): Plan: No chest pain prior to admission or around her falls. Troponin is normal Continue aspirin, Brilinta Continue metoprolol Continue isosorbide - Continue statin Orthostatics negative - Hold spironolactone and resume lower dose lisinopril Plan has bed at [facility] on Thursday Chronic conditions: ROMAN: CPAP at bedtime GERD: pantoprazole DVT prophylaxis: SCDs, Lovenox CODE STATUS: DNR/DNI Admission and Anticipated Discharge Date Admission Date: December 13, 2023 Subjective Stefany feeling much better today. No abdominal pain. No diarrhea today, last BM recorded was yesterday evening and was soft. No dysuria. No dyspnea Physical Exam 2 Physical Exam: PHYSICAL EXAMINATION Last 24h vital signs reviewed, see documentation in flowsheet General: frail appearing,comfortable appearing, no distress, sitting up in chair HEENT: Normocephalic, atraumatic, pupils round and equal, sclerae anicteric, no conjunctival injection, moist mucus membranes Lungs: Normal respiratory effort. Clear to auscultation bilaterally. No RRW Heart: Regular rate and rhythm, no murmurs. No JVD Abdomen: Soft, nontender, nondistended. Bowel sounds present. Extremities: Warm, dry, well-perfused. trace extremity edema. Neuro: Alert and oriented x 4, face symmetric, moves 4 extremities well Psych: Normal affect and behavior Results & Data Results & Data Vital Signs (Past 12 Hours) Vital Signs Temp Pulse Resp BP Pulse Ox O2 Del Method 12/21/23 07:41 36.5 C 88 18 149/80 H 98 Room Air 12/21/23 07:20 Room Air, CPAP Laboratory Results 12/18/23 05:39 12/21/23 08:04 PG Care Time/CCT Total # of Minutes Spent Total Time Spent with Patient: Total time spent is greater than 50% in coordination of care (as documented) at patient's floor/unit and/or counseling patient: Coding Level of Care Code 07803 SUB INP/OBS CARE 2/35MIN Diagnoses C. difficile colitis A04.72 Fall W19.XXXA Encounter type: initial encounter Acute UTI N39.0 Chronic kidney disease, stage 3a N18.31 Lymphocytic colitis K52.832 Diabetes mellitus, type 2 E11.9 Diabetes mellitus parts counterman insulin use: with parts counterman use Diabetes mellitus complication detail: with polyneuropathy History of CAD (coronary artery disease) Z86.79 (2) Fall Encounter type: initial encounter Qualified Code(s): W19.XXXA - Unspecified fall, initial encounter (6) Diabetes mellitus, type 2 Diabetes mellitus mcc insulin use: with parts counterman use Diabetes mellitus complication detail: with polyneuropathy
[2023-12-21] MEDS: SODIUM BICARBONATE 650 MG TAB PO SCH (21:21)
[2023-12-22 06:14] LABS: BUN Creatinine Ratio 35.5 (10-20); Calcium 8.6 mg/dl (8.6-10.3); Creatinine Clr Calc Pharmacy 43.5 ml/min
[2023-12-22 08:42] LABS: Magnesium 1.9 mg/dl (1.7-2.4)
[2023-12-22] MEDS: lisinopril 10 MG TAB PO SCH (09:09)
[2023-12-22] MEDS: LANTUS PER UNIT CHARGE SQ SCH (09:32)
--- NOTE | 2023-12-22 16:53 | Hospitalist Progress Note ---
Date of Service December 22, 2023 Assessment & Plan (1) C. difficile colitis: Plan: improved day #3 of vancomycin 125mg QID x 10 days cont contact precautions cont chronic questran BID (2) Fall: Plan: etiology - multifactorial - UTI, polypharmacy, etc. imaging this admission without fractures low normal B12 level of 306 in October - cont B12 supplementation x 6 months ativan/gabapentin can enhance fall risk, but pros/benefits of these meds likely outweight side effects oxybutynin and Seroquel both on hold at this time (3) Acute UTI: Plan: 2nd E. coli resolved completed full course of abx during the stay of note - for any future UTI, especially in light of c diff infection, consider: * Rx uncomplicated UTIs with single dose IV gentamicin 5 mg/kg x 1 * If she is treated with single dose gentamicin for UTI she should also have 3 days worth of prophylaxis with oral vancomycin daily. 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 Miguel, [facility] [place] Nephrology (5) Lymphocytic colitis: Plan: Lymphocytic colitis Biopsy-proven on last colonoscopy. Continue budesonide twice daily and Questran twice daily. This will be continued until she is completely symptom-free and stable and then slowly tapered as outpatient. Defer to GI (6) Diabetes mellitus, type 2: Plan: hgb A1c 11/29/23 - 6.0% cont basal-bolus insulin (7) History of CAD (coronary artery disease): Plan: Continue aspirin, Brilinta, metoprolol, isosorbide mononitrate, lisinopril, and statin aldactone on hold due to hyperkalemia tendencies (8) Acute severe vertigo: Plan: 2nd to head injury/concussion? 2nd to inner ear issue (ie vestibular neuronitis?)? other? check MRI brain - r/o CVA (does have stroke risk factors) meclizine 12.5mg x 1 now re-eval after MRI brain has returned Plan Chronic conditions: ROMAN: CPAP at bedtime GERD: pantoprazole DVT prophylaxis: Lovenox dispo - [facility] on 12/23/23 Admission and Anticipated Discharge Date Admission Date: December 13, 2023 Subjective only 1 stool today diarrhea markedly improved no nausea or emesis minimal abdominal discomfort good appetite reports brief episodes (seconds) of vertigo with head movements or moving too fast denies any other neuro symptoms vertigo present for over a week or perhaps closer to 2 weeks? no diplopia Review of Systems Review of Systems: gen - no fevers or chills cv - no chest pain pulm - no dyspnea Physical Exam Physical Exam: gen - NAD, looks well eyes - no nystagmus, EOMI neck - no JVD heart - RRR, s1 s2 lungs - CTA b/l abd - soft NT ND BS+ ext - no edema, pulses 2+ b/l neuro - strength 5/5 x 4 exts Results & Data Results & Data Vital Signs (Past 12 Hours) Vital Signs Temp Pulse Resp BP BP Pulse Ox O2 Del Method 12/22/23 14:42 36.6 C 78 18 116/79 99 Room Air 12/22/23 07:48 36.6 C 76 18 149/79 H 96 Room Air Laboratory Results Laboratory Results - last 48 hr 12/21/23 12/21/23 12/21/23 07:44 08:04 11:36 Sodium 139 Potassium 3.7 Chloride 117 H Carbon Dioxide 14 L Anion Gap 8 BUN 26 H Creatinine 0.82 D Est Cr Clr Drug Dosing 49.3 eGFR 73.63 BUN/Creatinine Ratio 31.7 H Glucose 130 H POC Glucose 124 H 238 H Calcium 8.8 Magnesium 12/21/23 12/21/23 12/22/23 16:44 20:19 05:34 Sodium 140 Potassium 4.0 Chloride 117 H Carbon Dioxide 16 L Anion Gap 7 BUN 33 H Creatinine 0.93 Est Cr Clr Drug Dosing 43.5 eGFR 63.30 BUN/Creatinine Ratio 35.5 H Glucose 208 H POC Glucose 197 H 225 H Calcium 8.6 Magnesium 1.9 12/22/23 12/22/23 12/22/23 08:04 11:48 16:49 Sodium Potassium Chloride Carbon Dioxide Anion Gap BUN Creatinine Est Cr Clr Drug Dosing eGFR BUN/Creatinine Ratio Glucose POC Glucose 172 H 204 H 193 H Calcium Magnesium PG Care Time/CCT Total # of Minutes Spent Total Time Spent with Patient: Total time spent is greater than 50% in coordination of care (as documented) at patient's floor/unit and/or counseling patient: Coding Level of Care Code 57708 SUB INP/OBS CARE 2/35MIN Diagnoses C. difficile colitis A04.72 Fall W19.XXXA Encounter type: initial encounter Acute UTI N39.0 Chronic kidney disease, stage 3a N18.31 Lymphocytic colitis K52.832 Diabetes mellitus, type 2 E11.9 Diabetes mellitus complication detail: with polyneuropathy Diabetes mellitus joint terminal attack controller insulin use: with usp use History of CAD (coronary artery disease) Z86.79 Acute severe vertigo R42 (2) Fall Encounter type: initial encounter Qualified Code(s): W19.XXXA - Unspecified fall, initial encounter (6) Diabetes mellitus, type 2 Diabetes mellitus complication detail: with polyneuropathy Diabetes mellitus usp insulin use: with usp use
[2023-12-22] MEDS: MECLIZINE 12.5 MG TAB PO STA (18:34)
--- NOTE | 2023-12-22 22:09 | Magnetic Resonance Report ---
MRI OF THE BRAIN WITHOUT IV CONTRAST CLINICAL HISTORY: Acute vertigo COMPARISON STUDY: CT of the brain dated 12/12/2023. TECHNIQUE: MRI of the brain was performed utilizing various T1 and T2-weighted sequences in the axial , sagittal, and coronal planes. IV contrast was not administered for this examination. FINDINGS: Brain parenchyma: There is age-related involutional change noted moderate subcortical and periventric ular microangiopathic disease. There is no hemorrhage or mass effect. There is no restricted diffusio n to suggest acute ischemia. Marquez-white matter differentiation is preserved. No extra-axial fluid col lection is seen. The cerebellar tonsils are normal in configuration. Ventricles, sulci, and cisterns: Prominent secondary to involutional change. Pituitary and sella: Unremarkable. Intracranial vasculature: Normal flow voids are maintained at the skull base. Orbits: The bony orbits are grossly intact. Orbital contents are normal in appearance noting bilatera l ocular lens implants. Sinuses and mastoids: Clear. Calvarium: Unremarkable. Cervical cord: Partially visualized cervical spinal cord is normal in morphology and signal intensity . IMPRESSION: No acute intracranial abnormality. ACT 112: Negative or not required by law. Electronically signed by: Jose Fox M.D. 12/22/2023 10:06 PM
[2023-12-23 07:37] VITALS: BP 147/65; PULSE 80; RESP 18; TEMP 99; O2SAT 99
[2023-12-23 08:42] LABS: BUN Creatinine Ratio 33.3 (10-20); Creatinine Clr Calc Pharmacy 49.9 ml/min; Potassium 3.7 mmol/L (3.5-5.1)
--- NOTE | 2023-12-23 12:37 | Discharge Summary ---
Discharge Summary Date of Service December 23, 2023 Principal Dx & Hospital Course #1 = Principal Diagnosis (1) C. difficile colitis: improved day #3 of vancomycin 125mg QID x 10 days cont contact precautions cont chronic questran BID If Dina has to receive antibiotics for any type of infection in the future consider the following for prevention of recurrent c diff -- * oral vancomycin prophylaxis - 125mg once daily * the oral vancomycin should be given for the entire duration of the antibiotic course +7 additional days beyond the end of that course (2) Fall: etiology - multifactorial - UTI, polypharmacy, etc. imaging this admission without fractures low normal B12 level of 306 in October - cont B12 supplementation x 6 months ativan/gabapentin can enhance fall risk, but pros/benefits of these meds likely outweight side effects oxybutynin and Seroquel both on hold at this time (3) Acute UTI: 2nd E. coli resolved completed full course of abx during the stay of note - for any future UTI, especially in light of c diff infection, consider: * Rx uncomplicated UTIs with single dose IV gentamicin 5 mg/kg x 1 * If she is treated with single dose gentamicin for UTI she should also have 3 days worth of prophylaxis with oral vancomycin daily. 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 Miguel, [facility] – [place] Nephrology (5) Lymphocytic colitis: Lymphocytic colitis Biopsy-proven on last colonoscopy. Continue budesonide twice daily and Questran twice daily. This will be continued until she is completely symptom-free and stable and then slowly tapered as outpatient. Defer to GI (6) Diabetes mellitus, type 2: hgb A1c 11/29/23 - 6.0% cont basal-bolus insulin (7) History of CAD (coronary artery disease): Continue aspirin, Brilinta, metoprolol, isosorbide mononitrate, lisinopril, and statin aldactone on hold due to hyperkalemia tendencies (8) Acute severe vertigo: 2nd to head injury/concussion? 2nd to inner ear issue (ie vestibular neuronitis?)? other? check MRI brain - r/o CVA (does have stroke risk factors) meclizine 12.5mg x 1 now re-eval after MRI brain has returned Plan Chronic conditions: ROMAN: CPAP at bedtime GERD: pantoprazole DVT prophylaxis: Lovenox dispo - [facility] on 12/23/23 Admission HPI Per Admitting Provider Stefany is a 78-year-old female with a past medical history of type II DM, C. difficile gene positive toxin negative status, lymphocytic colitis biopsy confirmed, GERD, weakness, multiple falls, dyslipidemia who was at her assisted care facility when she had a fall backwards striking the back of her head. She is on DAPT for PCI in the last year. She is brought to the hospital for evaluation, this is her second fall in 48 hours with head strike and third fall this week. Due to progressive weakness and multiple falls she was recommended for admission, PT/OT and evaluation for higher level of care. seen at the bedside. She reports that she has felt a little bit lightheaded when standing in the last few days, and globally weak. She is also had some suprapubic tenderness and is peeing a little more than normal. She denies dysuria. Feels like she may have another UTI. Denies chest pain chest pressure, difficulty breathing, shortness of breath. She reports when she fell she is not sure why she fell but felt weak and off balance. She did not have any room spinning. She has had a little bit of lightheadedness when standing. She notes that her diarrhea is vastly improved compared to the last time she was in the hospital, and has not had any diarrhea in the last 3 days. Denies fever chills or sweats. The back of her head is a little sore after falling. Medical History: Reviewed Medications: Reviewed Surgical History: Reviewed Family history: Reviewed Allergies: Reviewed Social History: Reviewed Code Status: DNR/DNI Discharge Exam gen - NAD, looks well eyes - no nystagmus, EOMI neck - no JVD heart - RRR, s1 s2 lungs - CTA b/l abd - soft NT ND BS+ ext - no edema, pulses 2+ b/l neuro - strength 5/5 x 4 exts Discharge Plan Discharge Items Patient Disposition: Transfer [facility] Reason For Visit: trauma alert/fall, uti Discharge Diagnosis: 1. multiple falls 2. head injury due to fall; negative CT head & MRI brain 3. probable concussion due to #2 4. acute vertigo - likely due to #3; negative MRI brain for stroke 5. UTI 6. C diff colitis 7. acute kidney injury 8. lymphocytic colitis 9. CAD 10. type 2 diabetes 11. sleep apnea 12. low serum bicarbonate levels - either due to GI losses or renal losses; follow-up with [facility] – [place], [place] Nephrology, Dr Becca Miguel Activity: Resume your previous activity Non-emergency contact: Primary Care Provider and Specialist Call non-emergency contact if: you have any medication questions, your symptoms worsen and you have a fever Follow-up/Referrals: Becca Miguel MD [Physician] - (3-4 weeks; dx - low serum bicarbonate levels, ?RTA vs GI losses) Levon Adam DO [Primary Care Provider] - (1 week after discharge from [facility] ) Diet: Carb Consistent or DM2 and Heart Healthy Addtl Attending Provider Instructions: Ms Arroyo was hospitalized after having had several falls including one fall that led to a head injury. All imaging was negative for fractures. Head imaging was negative for fractures, blood, tumor or stroke. During the stay Ms Arroyo was treated for urinary tract infection. Unfortunately she developed c diff infection on 12/20/23. Vancomycin was started on 12/19 for such. She complained of vertigo likely due to a concussion from her head injury. The vertigo started after her head strike. Vertigo responded nicely to meclizine. Recommendations - 1. CBC, BMP, and magnesium level in 3-4 days for stability. Results to emergency medical technician/driver. 2. Fingerstick blood sugar before meals & at bedtime. Pending Studies at Discharge: No Stand-Alone Forms: My [facility] Skilled Items Patient informed of condition?: Yes DNR: Yes Discharge Level of Care: Skilled Communicable Disease: Yes (c diff ) Discharge Prognosis: Stable Lines: None Urinary Catheter: No Medications and DC Order Prescriptions: New mirtazapine 15 mg Tablet 15 mg PO HS Qty: 30 2RF cyanocobalamin (vitamin B-12) 500 mcg Tablet 1,000 mcg PO QAM Qty: 60 5RF sodium bicarbonate 650 mg Tablet 650 mg PO BID Qty: 60 2RF meclizine 12.5 mg tablet 12.5 mg PO TID PRN (Reason: dizziness) Qty: 20 0RF vancomycin 125 mg capsule 125 mg PO QID 7 Days Qty: 28 0RF Continued atorvastatin 40 mg tablet 40 mg PO HS 30 Days Qty: 30 5RF citalopram 20 mg tablet 20 mg PO 0730 30 Days Qty: 30 5RF nystatin 100,000 unit/gram cream 1 applic topical BID PRN (Reason: RASH IN ABD FOLDS NEEDED) melatonin 10 mg capsule 10 mg PO HS Qty: 30 11RF amoxicillin 500 mg capsule 2,000 mg PO DIRECTED PRN (Reason: 1 HOUR PRIOR TO DENTAL VISIT) Patient Comments: CONFIRMED ON [facility] 09/28 flu vacc [id number](65yr up)-PF 240 mcg/0.7 mL syringe 0.7 ml IM ONCE Qty: 0.7 0RF COVID vac 24-25(12up)(Pfi)(PF) 30 mcg/0.3 mL syringe 0.3 ml IM ONCE Qty: 0.3 0RF glucose 4 gram Tablet,Chewable 1 tab PO DAILY PRN (Reason: HYPOGLYCEMIA) acetaminophen [Tylenol] 325 mg Tablet 650 mg PO Q6H MDD MAX 3 GRAMS APAP/24 HOURS. PRN (Reason: Fever Or Pain) isosorbide mononitrate 60 mg tablet extended release 24 hr 60 mg PO .DAILY@0730 nystatin 100,000 unit/gram powder 1 applic TOPICAL BID PRN (Reason: Rash) insulin lispro [Humalog KwikPen Insulin] 100 unit/mL insulin pen 3 unit SUBCUT TIDM MDD 20 units Rx Instructions: TAKES 0800, 1200, & 1700--3 UNIT BASE DOSE WITH PREMEAL BSG IS GREATER THAN 150, FOR EVERY 50 ABOVE BSG OF 200 ADD ADDITIONAL 3 UNITS. hydrocodone-acetaminophen 5-325 mg tablet 1 tab PO DAILY PRN (Reason: pain) Qty: 30 0RF budesonide 3 mg Capsule,Delayed,Extend.Release 9 mg PO QAM 0 Days Qty: 90 2RF hydrocortisone 1 % Cream 1 applic TOPICAL BID PRN (Reason: Rash) PreserVision AREDS-2 250-90-40-1 mg Capsule 1 tab PO .DAILY@ Rx Instructions: 729 & 2099 methenamine hippurate 1 gram tablet 1 g PO .DAILY@ Rx Instructions: 729 & 2099 timolol 0.5 % drops 1 drp OPB .DAILY@729 metoprolol tartrate 50 mg tablet 50 mg PO .DAILY@ Rx Instructions: 729 & 2099 Qc Natural Veggie 95% Powder 1 tsp PO DAILY PRN (Reason: Constipation) Rx Instructions: Mix 1 teaspoon w/ Miralax daily in 8 ounces of liquid as needed for constipation pantoprazole [Protonix] 40 mg Tablet,Delayed Release (Dr/Ec) 40 mg PO DAILY triamcinolone acetonide 0.1 % Ointment 1 applic TOPICAL BID magnesium chloride [Mag 64] 64 mg Tablet,Delayed Release (Dr/Ec) 64 mg PO DAILY aspirin 81 mg Tablet,Delayed Release (Dr/Ec) 81 mg PO 729 30 Days Qty: 30 0RF cholestyramine-aspartame [Prevalite] 4 gram Powder In Packet 1 ea PO BID@1000,0 30 Days Qty: 60 0RF Brilinta 90 mg Tablet 90 mg PO BID@ 30 Days Qty: 60 0RF Changed lorazepam 0.5 mg tablet 0.5 mg PO HS Qty: 30 0RF lisinopril 10 mg tablet 10 mg PO DAILY Qty: 30 2RF gabapentin 300 mg capsule 300 mg PO HS Qty: 270 3RF polyethylene glycol 3350 17 gram powder in packet 17 g PO DAILY PRN (Reason: constipation) Qty: 30 0RF insulin glargine [Lantus Solostar U-100 Insulin] 100 unit/mL (3 mL) insulin pen 8 unit SUBCUT .DAILY@0800 Qty: 0 0RF Held Trulicity 4.5 mg/0.5 mL pen injector 4.5 mg subcut Q7D Qty: 2 5RF Hold Instructions: hold until further notice Discontinued magnesium citrate Solution 150 ml PO DAILY PRN (Reason: No BM x 2 days) Qty: 296 2RF Rx Instructions: [place] flavor tolterodine 2 mg Tablet 2 mg PO .DAILY@ Rx Instructions: 729 & 2099 quetiapine 25 mg tablet 25 mg PO .DAILY@0730 loperamide 2 mg capsule 2 mg PO QID PRN (Reason: loose stool) spironolactone 25 mg tablet 25 mg PO .DAILY@730,2100 Rx Instructions: 0730 & 2100 polyethylene glycol 3350 [Miralax] 17 gram/dose Powder 17 g PO BID PRN (Reason: Constipation) oxycodone 5 mg Tablet 5 mg PO Q6H PRN (Reason: Pain) Discharge Orders: Discharge Order (Routine); Ordered 12/23/23 Ordered By: Benito Hoover Admission Data Admit Date/Time: 12/13/23 11:12 Attending Provider: Benito Hoover Admit Provider: Mahendra Catrer Primary Care Provider: Levon Adam Other Providers: [facility]; Gus Santoyo [facility]; IRB Approved Study,[place]; [facility] Other Interventions: Discharge Summary Assessment (RN) Last Done: 12/23/23 11:58 Hospital Stay Data Diagnostic Imagining Performed 12/12/23 11:02 CT cervical spine wo con Stat CT head/brain wo con Stat 12/22/23 17:18 MR brain wo con Routine Pending Results Patient Have Any Pending Studies at Discharge: No Discharge Instructions Given to Patient (Per Discharging Provider) Ms Arroyo was hospitalized after having had several falls including one fall that led to a head injury. All imaging was negative for fractures. Head imaging was negative for fractures, blood, tumor or stroke. During the stay Ms Arroyo was treated for urinary tract infection. Unfortunately she developed c diff infection on 12/20/23. Vancomycin was started on 12/19 for such. She complained of vertigo likely due to a concussion from her head injury. The vertigo started after her head strike. Vertigo responded nicely to meclizine. Recommendations - 1. CBC, BMP, and magnesium level in 3-4 days for stability. Results to emergency medical technician/driver. 2. Fingerstick blood sugar before meals & at bedtime. Coding Diagnoses C. difficile colitis A04.72 Fall [id number] Encounter type: initial encounter Acute UTI N39.0 Chronic kidney disease, stage 3a N18.31 Lymphocytic colitis K52.832 Diabetes mellitus, type 2 E11.9 Diabetes mellitus longterm insulin use: with terminal operator use Diabetes mellitus complication detail: with polyneuropathy History of CAD (coronary artery disease) Z86.79 Acute severe vertigo R42
[2023-12-23] MEDS: MECLIZINE 12.5 MG TAB PO STA (12:43)
== END 2023-12-23 13:20 | DRG 690 ==
LOC: ED 10:46 → 2S 10:46 → SUATTDRO 14:55 → 2S 15:31 → SUATTDRO 12-13 11:12 → 2N 12-13 22:43 → 3E 12-16 03:13